=== PATIENT | female | born 1975 | race Caucasian/White ===

== ENCOUNTER 2017-07-28 14:31 | Emergency (ER) | payer OTHER, SELFPAY ==
[2017-07-28 14:32] VITALS: BP 193/102; PULSE 110; RESP 14; TEMP 36.1; O2SAT 95; BMI 42.3
--- NOTE | 2017-07-28 14:44 | ED.DCSUM_ITS ---
- ER Visit Summary Date of Service: 07/28/17 Chief Complaint: Tooth pain History of Present Illness: The patient is a 41 F who has had 1 week of tooth pain. She has pain on the top and bottom part of her jaw. She saw her dentist on Tuesday in her PCP on Tuesday. She is already on amoxicillin. She was given 6 Vicodin but only took one because she states it did not work. She is scheduled to get these pulled in 2 weeks. She states that her temperature is 102?F at home. Pain is worse with eating. Physical Examination: Vital signs are reviewed. Mouth exam reveals widespread dental decay. She has tenderness to tooth numbers 9 and 18. No cervical lymphadenopathy. No Jesus's angina. Test Results: None indicated Emergency Department Course and Treatment: Patient will be treated with intramuscular Toradol here. She will go home with naproxen. She will follow- up with her dentist Treatment Plan: [] Disposition: Discharge Impression: Odontalgia This note was generated with [employer] dictation software. It may contain incorrect words, spelling, and punctuation that were not noted in review of the chart prior to signing ED Disposition - Plan for ED Patient: Chief Complaint: Dental Referrals: Payam Brown DO [Primary Care Provider] -
--- NOTE | 2017-07-28 14:44 | ED.DEP ---
ED Disposition - Plan for ED Patient: Disposition: Home or Assisted Living Chief Complaint: Dental Instructions: ED Tooth Pain Prescriptions: Naproxen [Naprosyn] 500 mg PO BID PRN #20 tab Referrals: Payam Brown DO [Primary Care Provider] -
[2017-07-28] MEDS: Ketorolac 60 MG/2 ML Vial IM (14:48)
== END 2017-07-28 15:19 | disposition home or self-care (01) ==
LOC: ED 14:51
PROVIDERS: Emergency Provider Emergency Medicine; Family Provider Student in an Organized Health Care Education/Training Program; PCP Student in an Organized Health Care Education/Training Program
DX: K02.9 Dental caries, unspecified (principal); E11.9 Type 2 diabetes mellitus without complications; I10 Essential (primary) hypertension; F32.9 Major depressive disorder, single episode, unspecified; F41.9 Anxiety disorder, unspecified; Z79.82 Long term (current) use of aspirin; Z79.4 Long term (current) use of insulin; Z79.899 Other long term (current) drug therapy
CPT/HCPCS: 96372; 99282

== ENCOUNTER 2017-07-29 08:42 | Emergency (ER) | payer OTHER, SELFPAY ==
[2017-07-29 08:43] VITALS: BP 163/96; PULSE 119; RESP 16; TEMP 37; O2SAT 94; BMI 42.8
--- NOTE | 2017-07-29 09:00 | ED.VISSUMM ---
- ER Visit Summary Date of Service: 07/29/17 Chief Complaint: Dental abscess History of Present Illness: The patient is a 41 F who states that she saw [facility] on Tuesday. She was told she needed to have 2 teeth removed 1 on the upper right central incisor and the other on the bottom right. She states she was placed on amoxicillin. She went to her primary care doctor on Tuesday. She was given some Vicodin which did not help her pain. She was seen in the emergency department on with reported fever but was afebrile in department. She states now she has developed a swelling on the roof just behind the right upper central incisor. Her pain is worse today. She states that she called her primary care doctor's office and they told her that she needed to come back to the emergency department. She also states that she needs a med release to have her teeth pulled. Physical Examination: Afebrile slightly tachycardic. Gen: Well-nourished well-developed Head: Normocephalic atraumatic Eyes: Perrl EOMI ENT: TMs clear no rhinorrhea moist mucous membranes there is widespread dental decay. There is a small developing abscess posterior to the right central upper incisor. There is focal decay of that tooth. There is evidence of gingivitis. There is no trismus. The floor the mouth is soft. I do not appreciate any facial swelling or cellulitic changes Neck: Supple no lymphadenopathy no JVD nontender CVS: Heart rate was 96 on my examination regular rate rhythm no murmurs normal S1-S2 Respiratory: No distress clear to auscultation bilaterally chest nontender Abdomen: Soft nontender nondistended normal bowel sounds no masses Back: Nontender Extremity: Nontender no edema Skin: Normal color no rash Neuro: alert orientated ?3 CN II-XII intact normal strength sensation reflexes gait cerebellar Psych: Normal affect normal mood Emergency Department Course and Treatment: Ice and. When I have her use Peridex and I will write for a few oxycodone given the developing abscess. At this time I do not feel the abscess is drainable. She needs to follow-up with her family doctor and dentist. Impression: 1. Dental abscess 2. Gingivitis This note was generated with [employer] dictation software. It may contain incorrect words, spelling, and punctuation that were not noted in review of the chart prior to signing ED Disposition - Plan for ED Patient: Disposition: Home or Assisted Living Chief Complaint: Dental Instructions: ED Abscess Dental, Stages of Periodontal Disease Prescriptions: Oxycodone [Oxyir] 5 mg PO Q6H PRN PRN 3 Days #12 tab PRN Reason: Pain Chlorhexidine Gluconate [Peridex] 15 ml MM BID 7 Days #210 ml Clindamycin HCl [Cleocin] 300 mg PO Q6H #40 cap Referrals: Payam Brown DO [Primary Care Provider] - ( SCHEDULED)
== END 2017-07-29 09:08 | disposition home or self-care (01) ==
PROVIDERS: Emergency Provider Emergency Medicine; Family Provider Student in an Organized Health Care Education/Training Program; PCP Student in an Organized Health Care Education/Training Program
DX: K04.7 Periapical abscess without sinus (principal); K05.10 Chronic gingivitis, plaque induced; K02.9 Dental caries, unspecified; E11.9 Type 2 diabetes mellitus without complications; I10 Essential (primary) hypertension; Z79.82 Long term (current) use of aspirin; Z79.4 Long term (current) use of insulin; Z79.899 Other long term (current) drug therapy
CPT/HCPCS: 99282

== ENCOUNTER 2017-07-30 09:18 | Inpatient (IN) | payer OTHER, SELFPAY ==
[2017-07-30] VITALS (14 sets, daily range): BP systolic 136–179; BP diastolic 74–110; PULSE 110–140; RESP 16–32; TEMP 36.3–37; O2SAT 94–96; BMI 42.3; BMI 43.9
--- NOTE | 2017-07-30 09:33 | ED.DCSUM_ITS ---
- ER Visit Summary Date of Service: 07/30/17 Chief Complaint: Facial swelling History of Present Illness: The patient is a 41 F seen by her dentist on Tuesday started on amoxicillin. She saw her primary care physician on Tuesday. Patient was seen in the emergency department on . She was changed to clindamycin in the emergency department on Tuesday. She returns today now with facial swelling and redness. That has developed overnight. She has had a total of 4 doses of her clindamycin yesterday. She denies any fevers. She notes a bad taste in her mouth and bleeding gums. She also notes new swelling over her left frontal upper teeth. Physical Examination: Afebrile vital signs show hypertension and slight tachycardia Gen: Well-nourished well-developed Head: Normocephalic atraumatic Eyes: Perrl EOMI ENT: TMs clear no rhinorrhea moist mucous membranes there is evidence of gingivitis. There is left-sided facial swelling and faint erythema up to the inferior orbital region. There is a draining abscess on the left upper gumline in the front near the central and lateral incisors. Neck: Supple no lymphadenopathy no JVD nontender CVS: Tachycardic regular rate rhythm no murmurs normal S1-S2 Respiratory: No distress clear to auscultation bilaterally chest nontender Abdomen: Soft nontender nondistended normal bowel sounds no masses Back: Nontender Extremity: Nontender no edema Skin: Normal color no rash Neuro: alert orientated ?3 CN II-XII intact normal strength sensation reflexes gait cerebellar Psych: Normal affect normal mood Test Results: White count slightly elevated at 11. Her lactic acid is elevated at 2.5. Glucose of 319. Emergency Department Course and Treatment: IV was established and the patient received pain medication. Blood cultures were obtained prior to the administration of antibiotics. She also received IV clindamycin and IV fluids. Based upon her labs and her physical exam findings she could qualify for severe sepsis. Our plan will be admission to the hospital for failure of outpatient treatment and severe sepsis. At this point as the abscess is spontaneously draining and we will monitor. Impression: 1. Dental abscess 2. Failure of outpatient therapy This note was generated with [employer] dictation software. It may contain incorrect words, spelling, and punctuation that were not noted in review of the chart prior to signing ED Disposition - Plan for ED Patient: Chief Complaint: Edema Referrals: Payam Brown DO [Primary Care Provider] -
[2017-07-30] MEDS: Morphine 2 MG/ML Syringe IV (09:42)
[2017-07-30] MEDS: Clindamycin 600 MG/50 ML BAG 100 MG IV (09:43)
[2017-07-30 10:15] LABS: Anion Gap 7 (5-15); BUN 11 mg/dL (7-18); BUN/Creat Ratio 16.7 RATIO (10-20); Chloride 97 mmol/L (98-107); Creatinine, Serum 0.66 mg/dL (0.55-1.02); EST Glomerular Filtration Rate 106 mL/min (>60); Est Glom Filt Rate - Afr Amer 128 mL/min (>60); Estimated Creatinine Clearance 86.36 ml/min; Glucose 319 mg/dL (74-106); Potassium 3.8 mmol/L (3.5-5.1); Sodium Level 135 mmol/L (136-145)
[2017-07-30 10:18] LABS: Absolute Lymphocyte Count 2.11 X10^3/ul (0.83-4.51); Absolute Neutrophil Count 8.3 X10^3/uL (2.0-7.7); Basophil# 0.02 X10^3/uL; Basophil% 0.2 % (0-1); Eosinophil# 0.15 X10^3/uL; Eosinophils% 1.3 % (0-5); Hematocrit 43.6 % (37-47); Hemoglobin 14.2 g/dl (12.0-15.0); Lymphocyte # 2.11 X10^3/ul (4.0); Lymphocyte % 18.4 % (19-41); Mean Corp Hgb Conc 32.6 g/gl (32-36); Mean Corpuscular Hgb 28.6 pg (27.0-32.0); Mean Corpuscular Volume 87.9 fL (81-99); Mean Platelet Vol. 10.7 fl (6.2-12.0); Monocyte# 0.86 X10^3/uL; Monocyte% 7.5 % (0-10); Neutrophil % 72.2 % (47-70); POSITIVE COUNT NO; POSITIVE DIFFERENTIAL NO; POSITIVE MORPHOLOGY NO; Platelet Count 239 K/mm3 (150-450); RBC Distribution Width SD 41.3 fl (35.1-43.9); Red Blood Count 4.96 M/mm3 (4.2-5.4); White Blood Count 11.5 K/mm3 (4.4-11.0)
[2017-07-30 10:33] LABS: Lactic Acid 2.5 mmol/L (0.4-2.0)
--- NOTE | 2017-07-30 10:42 | EKG12_ITS ---
Test Reason : EDEMA Blood Pressure : / mmHG Vent. Rate : 110 BPM Atrial Rate : 110 BPM P-R Int : 146 ms QRS Dur : 092 ms QT Int : 342 ms P-R-T Axes : 064 004 053 degrees QTc Int : 462 ms Sinus tachycardia Nonspecific ST and T wave abnormality Abnormal ECG Confirmed by NIRALI ORLANDO, GELACIO ([id number]), editorial director KAREN BACA ([id number] on 08/03/2017 1:56:49 PM Referred By: MIRLANDE Confirmed By:GELACIO CAMPOVERDE MD
[2017-07-30] MEDS: 0.9% Normal Saline 1,000 ML 999 ML IV (10:57)
[2017-07-30] MEDS: 0.9% Normal Saline 1,000 ML 150 ML IV ×2 (10:58→22:55)
[2017-07-30 11:03] LABS: AST(SGOT) 27 U/L (15-37); Alanine Aminotransfer ALT/SGPT 31 U/L (13-56); Albumin, Serum 3.3 g/dL (3.2-5.0); Alkaline Phosphatase 137 U/L (45-117); Globulin 4.7 g/dL (2.2-4.2)
[2017-07-30 11:08] LABS: Prothrombin Time (Protime)PT. 13.5 SECONDS (11.7-14.9)
[2017-07-30] MEDS: Morphine 4 MG/ML Syringe IV (11:16)
[2017-07-30 11:55] LABS: Bacteria 0 SEEN /hpf (None Seen); Mucous, Urine 0 SEEN /hpf (<or=2+); White Blood Cells 0 SEEN /hpf (0-5)
[2017-07-30 12:02] LABS: Internal QC Validated? YES +Cl - CLEAR BKGD; Pregnancy, Urine Negative Negative
[2017-07-30 12:05] LABS: Color, Urine Yellow (Yellow); Glucose, Dipstick 1000 mg/dl (Normal); Ketone-Dipstick 15 mg/dl (Negative); Leukocyte Esterase-Dipstick Negative /ul (Negative); Nitrite-Dipstick Negative (Negative); Occult Blood-Urine 10 /ul (Negative); Protein-Dipstick 100 mg/dl (Negative); Urine Bilirubin Dipstick Negative (Negative); Urine Clarity Sl. Cloudy (Clear); Urine Urobilinogen Normal (Normal); Urine pH 6.5 (5.0 - 8.0)
[2017-07-30 12:08] LABS: Red Blood Cells-Urine 0-5 SEEN /hpf (0-5); Squamous Epithelial Cells - UA 0-5 SEEN /hpf (5-10)
[2017-07-30 12:41] LABS: Bedside Glucose 244 mg/dL (70-110)
[2017-07-30 13:56] LABS: Reflex Lactate? Y
[2017-07-30] MEDS: Ketorolac 30 MG/ML Syringe IV (14:08)
--- NOTE | 2017-07-30 14:33 | PCM.HP.STD ---
Problem List (1) Severe sepsis Status: Acute (2) Periapical abscess Status: Acute (3) HTN (hypertension) Status: Chronic (4) Hyperlipidemia Status: Chronic (5) Type 2 diabetes mellitus Status: Chronic History of Present Illness Date of Admission: 07/30/17 Chief Complaint: Facial swelling. The patient is a 41 year old F who since Tuesday has had a pain in her tooth #8. Patient seen a dentist and was started on antibiotics with the clindamycin. Today noticed a very profound facial swelling and noted some lacrimation as well. Patient presented to the emergency room. Patient was evaluated and was noted to be tachycardic so a lactic acid was ordered and came back at 2.5. Patient was concern for severe sepsis and admission request at that time. Patient did receive Toradol, clindamycin and IV fluids. Patient does have a known history of a bad tooth and has had other teeth come out and does have a current bad tooth #15. Patient is to follow-up with dentistry next week in regards to either getting instructed or for follow-up purposes unclear at this time. [] Past Medical History Past Medical History (Chronic Problems): Chronic Problems HTN (hypertension) (Chronic) Hyperlipidemia (Chronic) Type 2 diabetes mellitus (Chronic) Allergies pregabalin [From Lyrica] Allergy (Verified 07/30/17 09:19) Other SI sulfamethoxazole [From Bactrim] Allergy (Verified 07/30/17 09:19) Rash tramadol HCl [From Ultram] Allergy (Verified 07/30/17 09:19) Swelling trimethoprim [From Bactrim] Allergy (Verified 07/30/17 09:19) Rash vancomycin Allergy (Verified 07/30/17 09:19) Swelling Home Medications: Ambulatory Orders Medication Instructions Recorded Metoprolol(XL)Succ [Toprol Xl 25 mg PO DAILY 08/06/15 (Beta Zelalem)] Amitriptyline HCl 50 mg PO QHS 07/28/17 Aspirin E.C. [Ecotrin] 81 mg PO DAILY@0800 07/28/17 Cholecalciferol (Vitamin D3) 2,000 unit PO DAILY 07/28/17 [Vitamin D3] Dicyclomine HCl [Bentyl] 20 mg PO TIDAC 07/28/17 Duloxetine Hcl [Cymbalta] 60 mg PO BID 07/28/17 Fluticasone 0.05% [Flonase Nasal 2 spray NASAL DAILY 07/28/17 [place]] Gabapentin [Neurontin] 600 mg PO BID 07/28/17 Insulin NPH Human [Humulin N (Bkc)] 12 units SC BREAKFAST 07/28/17 Melatonin 10 mg PO QHS 07/28/17 Naproxen [Naprosyn] 500 mg PO BID PRN #20 tab 07/28/17 Simvastatin [Zocor] 20 mg PO QHS 07/28/17 buPROPion SR [Wellbutrin SR (150mg 150 mg PO BID 07/28/17 tablets)] Chlorhexidine Gluconate [Peridex] 15 ml MM BID 7 Days #210 ml 07/29/17 Clindamycin HCl [Cleocin] 300 mg PO Q6H #40 cap 07/29/17 Oxycodone [Oxyir] 5 mg PO Q6H PRN PRN 3 Days #12 tab 07/29/17 Insulin NPH Human Isophane 6 unit SQ DINNER 07/30/17 [Humulin N] Surgical History: noncontributory Psychiatric History: No pertinent psych hx [employer] History: No pertinent [employer] history Lives: Spouse/ Significant Other Smoking Status: Never smoker - *Family History Maternal History Items: Heart Disease - In maternal grandmother Review of Systems Constitutional: Reports: Chills, Fever Eyes: Reports: Blurred vision - Left eye but also associated with lacrimation. HEENT: Reports: - - Left facial swelling and pain, - Cardiovascular: Denies: Chest Pain, Chest Pressure Respiratory: Denies: Shortness of Breath Gastrointestinal: Denies: Abdominal Pain, Nausea, Vomiting Genitourinary: Denies: Frequency, Incontinence Musculoskeletal: Denies: Joint Pain, Joint Tenderness Skin: Denies: Dryness, Rash Neurological: Denies: Numbness, Tingling, Focal weakness Psychiatric: Denies: Anxiety, Depression, Homicidal Ideations, Suicidal Ideations Hematologic/ Lymphatic: Denies: Easy Bruising, Easy Bleeding, Hx of blood clot VTE Information - Inpt Only VTE Present on Admission: No VTE Pharm Prophylaxis ordered?: Yes Patient Problems: Active and Suspected Problems Severe sepsis (Acute) Periapical abscess (Acute) - Physical Exam General: Alert, - - Comfortable. Afebrile. Nontoxic appearing. No drooling nor any tripoding. HEENT: - - Facial swelling on the left without cellulitis. Tender palpation over the left aspect of her jaw. Oral: Moist Mucosa, - - poor dentition with black discoloration of tooth #8 as well as 15. Neck: No Nodes, Thyroid Normal Size and Texture Lungs: Clear to auscultation, Normal air movement, No rhonchi, No wheeze Cardiovascular: Regular rate, Regular Rhythm, Normal S1, Normal S2 Abdomen: Bowel Sounds Present, Soft, Non Tender, Non-Distended Extremities: No edema, No Calf Tenderness Skin: No rashes, No breakdown Psych/Mental Status: Normal Affect, Appropriate Vital Signs Temp Pulse Resp BP Pulse Ox 36.7 C 110 H 32 H 151/92 H 96 07/30/17 14:21 07/30/17 14:21 07/30/17 14:21 07/30/17 14:21 07/30/17 14:17 Oxygen Delivery Method Room Air Weight: 101.605 kg Body Mass Index (BMI) 42.3 Finger Stick Blood Glucose 244 Laboratory Tests Past 24 Hrs 07/30/17 07/30/17 07/30/17 09:45 09:45 09:45 WBC 11.5 H RBC 4.96 Hgb 14.2 Hct 43.6 MCV 87.9 MCH 28.6 MCHC 32.6 RDW 13.0 RDW Differential 41.3 Plt Count 239 MPV 10.7 Immature Gran % (Auto) 0.400 Neut % (Auto) 72.2 H Lymph % (Auto) 18.4 L [place] % (Auto) 7.5 Eos % (Auto) 1.3 Baso % (Auto) 0.2 Absolute Neuts (auto) 8.3 H Absolute Lymphs (auto) 2.11 Total Counted Not Reportable PT INR APTT Sodium 135 L Potassium 3.8 Chloride 97 L Carbon Dioxide 31.0 Anion Gap 7 BUN 11 Creatinine 0.66 Estim Creat Clear Calc 86.36 Est GFR (MDRD) Af Amer 128 Est GFR (MDRD) Non-Af 106 BUN/Creatinine Ratio 16.7 Glucose 319 H Lactic Acid 2.5 H Calcium 9.0 Total Bilirubin Direct Bilirubin AST ALT Alkaline Phosphatase Troponin I Total Protein Albumin Globulin Urine Color Urine Clarity Urine pH Ur Specific [place] Urine Protein Urine Glucose (UA) Urine Ketones Urine Occult Blood Urine Nitrite Urine Bilirubin Urine Urobilinogen Ur Leukocyte Esterase Urine RBC Urine WBC Ur Squamous Epith Cells Urine Bacteria Urine Mucus Urine Test Acetone Level 07/30/17 07/30/17 07/30/17 09:45 09:45 09:45 WBC RBC Hgb Hct MCV MCH MCHC RDW RDW Differential Plt Count MPV Immature Gran % (Auto) Neut % (Auto) Lymph % (Auto) [place] % (Auto) Eos % (Auto) Baso % (Auto) Absolute Neuts (auto) Absolute Lymphs (auto) Total Counted PT 13.5 INR 1.0 APTT 31.0 Sodium Potassium Chloride Carbon Dioxide Anion Gap BUN Creatinine Estim Creat Clear Calc Est GFR (MDRD) Af Amer Est GFR (MDRD) Non-Af BUN/Creatinine Ratio Glucose Lactic Acid Calcium Total Bilirubin 0.80 Direct Bilirubin 0.20 AST 27 ALT 31 Alkaline Phosphatase 137 H Troponin I < 0.02 Total Protein 8.0 Albumin 3.3 Globulin 4.7 H Urine Color Urine Clarity Urine pH Ur Specific [place] Urine Protein Urine Glucose (UA) Urine Ketones Urine Occult Blood Urine Nitrite Urine Bilirubin Urine Urobilinogen Ur Leukocyte Esterase Urine RBC Urine WBC Ur Squamous Epith Cells Urine Bacteria Urine Mucus Urine Test Acetone Level 07/30/17 07/30/17 07/30/17 09:45 11:45 11:45 WBC RBC Hgb Hct MCV MCH MCHC RDW RDW Differential Plt Count MPV Immature Gran % (Auto) Neut % (Auto) Lymph % (Auto) [place] % (Auto) Eos % (Auto) Baso % (Auto) Absolute Neuts (auto) Absolute Lymphs (auto) Total Counted PT INR APTT Sodium Potassium Chloride Carbon Dioxide Anion Gap BUN Creatinine Estim Creat Clear Calc Est GFR (MDRD) Af Amer Est GFR (MDRD) Non-Af BUN/Creatinine Ratio Glucose Lactic Acid Calcium Total Bilirubin Direct Bilirubin AST ALT Alkaline Phosphatase Troponin I Total Protein Albumin Globulin Urine Color Yellow Urine Clarity Sl. Cloudy Urine pH 6.5 Ur Specific [place] 1.010 Urine Protein 100 H Urine Glucose (UA) 1000 H Urine Ketones 15 H Urine Occult Blood 10 H Urine Nitrite Negative Urine Bilirubin Negative Urine Urobilinogen Normal Ur Leukocyte Esterase Negative Urine RBC 0-5 SEEN Urine WBC 0 SEEN Ur Squamous Epith Cells 0-5 SEEN Urine Bacteria 0 SEEN Urine Mucus 0 SEEN Urine Test Negative Acetone Level NEGATIVE 07/30/17 14:00 WBC RBC Hgb Hct MCV MCH MCHC RDW RDW Differential Plt Count MPV Immature Gran % (Auto) Neut % (Auto) Lymph % (Auto) [place] % (Auto) Eos % (Auto) Baso % (Auto) Absolute Neuts (auto) Absolute Lymphs (auto) Total Counted PT INR APTT Sodium Potassium Chloride Carbon Dioxide Anion Gap BUN Creatinine Estim Creat Clear Calc Est GFR (MDRD) Af Amer Est GFR (MDRD) Non-Af BUN/Creatinine Ratio Glucose Lactic Acid Pending Calcium Total Bilirubin Direct Bilirubin AST ALT Alkaline Phosphatase Troponin I Total Protein Albumin Globulin Urine Color Urine Clarity Urine pH Ur Specific [place] Urine Protein Urine Glucose (UA) Urine Ketones Urine Occult Blood Urine Nitrite Urine Bilirubin Urine Urobilinogen Ur Leukocyte Esterase Urine RBC Urine WBC Ur Squamous Epith Cells Urine Bacteria Urine Mucus Urine Test Acetone Level POC Glucose 07/30/17 12:37 POC Glucose 244 H Assessment/Plan Active and Suspected Problems Severe sepsis (Acute) Periapical abscess (Acute) 1. Severe sepsis The severe sepsis is due to dental origin with suspected periapical abscesses Patient will be on penicillin G and metronidazole. We will not order vancomycin because of noted allergy. Await blood cultures Check chest x-ray and urine culture Follow-up repeat lactic acid Patient will be admitted to the progressive care unit for closer monitoring for now 2. Suspected periapical abscesses Patient states that this began a tooth #8 but tooth #15 looks very bad as well. Antibiotics as above Check CT of the facial bones Eventually patient will need to have removal of the affected teeth and we need to follow-up with dentistry. 3. Diabetes mellitus type 2 Uncontrolled. Continue with her home regimen of insulin plus sliding scale 4. DVT prophylaxis: Moderate risk. Lovenox. Code Visit Inpatient E&M: 72000 Init Hosp L3
--- NOTE | 2017-07-30 14:41 | HP.PCM_ITS ---
Problem List (1) Severe sepsis Status: Acute (2) Periapical abscess Status: Acute (3) HTN (hypertension) Status: Chronic (4) Hyperlipidemia Status: Chronic (5) Type 2 diabetes mellitus Status: Chronic History of Present Illness Date of Admission: 07/30/17 Chief Complaint: Facial swelling. The patient is a 41 year old F who since Tuesday has had a pain in her tooth #8. Patient seen a dentist and was started on antibiotics with the clindamycin. Today noticed a very profound facial swelling and noted some lacrimation as well. Patient presented to the emergency room. Patient was evaluated and was noted to be tachycardic so a lactic acid was ordered and came back at 2.5. Patient was concern for severe sepsis and admission request at that time. Patient did receive Toradol, clindamycin and IV fluids. Patient does have a known history of a bad tooth and has had other teeth come out and does have a current bad tooth #15. Patient is to follow-up with dentistry next week in regards to either getting instructed or for follow-up purposes unclear at this time. [] Past Medical History Past Medical History (Chronic Problems): Chronic Problems HTN (hypertension) (Chronic) Hyperlipidemia (Chronic) Type 2 diabetes mellitus (Chronic) Allergies pregabalin [From Lyrica] Allergy (Verified 07/30/17 09:19) Other SI sulfamethoxazole [From Bactrim] Allergy (Verified 07/30/17 09:19) Rash tramadol HCl [From Ultram] Allergy (Verified 07/30/17 09:19) Swelling trimethoprim [From Bactrim] Allergy (Verified 07/30/17 09:19) Rash vancomycin Allergy (Verified 07/30/17 09:19) Swelling Home Medications: Ambulatory Orders Medication Instructions Recorded Metoprolol(XL)Succ [Toprol Xl 25 mg PO DAILY 08/06/15 (Beta [place])] Amitriptyline HCl 50 mg PO QHS 07/28/17 Aspirin E.C. [Ecotrin] 81 mg PO DAILY@0800 07/28/17 Cholecalciferol (Vitamin D3) 2,000 unit PO DAILY 07/28/17 [Vitamin D3] Dicyclomine HCl [Bentyl] 20 mg PO TIDAC 07/28/17 Duloxetine Hcl [Cymbalta] 60 mg PO BID 07/28/17 Fluticasone 0.05% [Flonase Nasal 2 spray NASAL DAILY 07/28/17 Maurice] Gabapentin [Neurontin] 600 mg PO BID 07/28/17 Insulin NPH Human [Humulin N (Bkc)] 12 units SC BREAKFAST 07/28/17 Melatonin 10 mg PO QHS 07/28/17 Naproxen [Naprosyn] 500 mg PO BID PRN #20 tab 07/28/17 Simvastatin [Zocor] 20 mg PO QHS 07/28/17 buPROPion SR [Wellbutrin SR (150mg 150 mg PO BID 07/28/17 tablets)] Chlorhexidine Gluconate [Peridex] 15 ml MM BID 7 Days #210 ml 07/29/17 Clindamycin HCl [Cleocin] 300 mg PO Q6H #40 cap 07/29/17 Oxycodone [Oxyir] 5 mg PO Q6H PRN PRN 3 Days #12 tab 07/29/17 Insulin NPH Human Isophane 6 unit SQ DINNER 07/30/17 [Humulin N] Surgical History: noncontributory Psychiatric History: No pertinent psych hx 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 HEENT: Reports: - - Left facial swelling and pain, - Cardiovascular: Denies: Chest Pain, Chest Pressure Respiratory: Denies: Shortness of Breath Gastrointestinal: Denies: Abdominal Pain, Nausea, Vomiting Genitourinary: Denies: Frequency, Incontinence Musculoskeletal: Denies: Joint Pain, Joint Tenderness Skin: Denies: Dryness, Rash Neurological: Denies: Numbness, Tingling, Focal weakness Psychiatric: Denies: Anxiety, Depression, Homicidal Ideations, Suicidal Ideations Hematologic/ Lymphatic: Denies: Easy Bruising, Easy Bleeding, Hx of blood clot VTE Information - Inpt Only VTE Present on Admission: No VTE Pharm Prophylaxis ordered?: Yes Patient Problems: Active and Suspected Problems Severe sepsis (Acute) Periapical abscess (Acute) - Physical Exam General: Alert, - - Comfortable. Afebrile. Nontoxic appearing. No drooling nor any tripoding. HEENT: - - Facial swelling on the left without cellulitis. Tender palpation over the left aspect of her jaw. Oral: Moist Mucosa, - - poor dentition with black discoloration of tooth #8 as well as 15. Neck: No Nodes, Thyroid Normal Size and Texture Lungs: Clear to auscultation, Normal air movement, No rhonchi, No wheeze Cardiovascular: Regular rate, Regular Rhythm, Normal S1, Normal S2 Abdomen: Bowel Sounds Present, Soft, Non Tender, Non-Distended Extremities: No edema, No Calf Tenderness Skin: No rashes, No breakdown Psych/Mental Status: Normal Affect, Appropriate Vital Signs Temp Pulse Resp BP Pulse Ox 36.7 C 110 H 32 H 151/92 H 96 07/30/17 14:21 07/30/17 14:21 07/30/17 14:21 07/30/17 14:21 07/30/17 14:17 Oxygen Delivery Method Room Air Weight: 101.605 kg Body Mass Index (BMI) 42.3 Finger Stick Blood Glucose 244 Laboratory Tests Past 24 Hrs 07/30/17 07/30/17 07/30/17 09:45 09:45 09:45 WBC 11.5 H RBC 4.96 Hgb 14.2 Hct 43.6 MCV 87.9 MCH 28.6 MCHC 32.6 RDW 13.0 RDW Differential 41.3 Plt Count 239 MPV 10.7 Immature Gran % (Auto) 0.400 Neut % (Auto) 72.2 H Lymph % (Auto) 18.4 L [place] % (Auto) 7.5 Eos % (Auto) 1.3 Baso % (Auto) 0.2 Absolute Neuts (auto) 8.3 H Absolute Lymphs (auto) 2.11 Total Counted Not Reportable PT INR APTT Sodium 135 L Potassium 3.8 Chloride 97 L Carbon Dioxide 31.0 Anion Gap 7 BUN 11 Creatinine 0.66 Estim Creat Clear Calc 86.36 Est GFR (MDRD) Af Amer 128 Est GFR (MDRD) Non-Af 106 BUN/Creatinine Ratio 16.7 Glucose 319 H Lactic Acid 2.5 H Calcium 9.0 Total Bilirubin Direct Bilirubin AST ALT Alkaline Phosphatase Troponin I Total Protein Albumin Globulin Urine Color Urine Clarity Urine pH Ur Specific [place] Urine Protein Urine Glucose (UA) Urine Ketones Urine Occult Blood Urine Nitrite Urine Bilirubin Urine Urobilinogen Ur Leukocyte Esterase Urine RBC Urine WBC Ur Squamous Epith Cells Urine Bacteria Urine Mucus Urine Test Acetone Level 07/30/17 07/30/17 07/30/17 09:45 09:45 09:45 WBC RBC Hgb Hct MCV MCH MCHC RDW RDW Differential Plt Count MPV Immature Gran % (Auto) Neut % (Auto) Lymph % (Auto) [place] % (Auto) Eos % (Auto) Baso % (Auto) Absolute Neuts (auto) Absolute Lymphs (auto) Total Counted PT 13.5 INR 1.0 APTT 31.0 Sodium Potassium Chloride Carbon Dioxide Anion Gap BUN Creatinine Estim Creat Clear Calc Est GFR (MDRD) Af Amer Est GFR (MDRD) Non-Af BUN/Creatinine Ratio Glucose Lactic Acid Calcium Total Bilirubin 0.80 Direct Bilirubin 0.20 AST 27 ALT 31 Alkaline Phosphatase 137 H Troponin I < 0.02 Total Protein 8.0 Albumin 3.3 Globulin 4.7 H Urine Color Urine Clarity Urine pH Ur Specific [place] Urine Protein Urine Glucose (UA) Urine Ketones Urine Occult Blood Urine Nitrite Urine Bilirubin Urine Urobilinogen Ur Leukocyte Esterase Urine RBC Urine WBC Ur Squamous Epith Cells Urine Bacteria Urine Mucus Urine Test Acetone Level 07/30/17 07/30/17 07/30/17 09:45 11:45 11:45 WBC RBC Hgb Hct MCV MCH MCHC RDW RDW Differential Plt Count MPV Immature Gran % (Auto) Neut % (Auto) Lymph % (Auto) [place] % (Auto) Eos % (Auto) Baso % (Auto) Absolute Neuts (auto) Absolute Lymphs (auto) Total Counted PT INR APTT Sodium Potassium Chloride Carbon Dioxide Anion Gap BUN Creatinine Estim Creat Clear Calc Est GFR (MDRD) Af Amer Est GFR (MDRD) Non-Af BUN/Creatinine Ratio Glucose Lactic Acid Calcium Total Bilirubin Direct Bilirubin AST ALT Alkaline Phosphatase Troponin I Total Protein Albumin Globulin Urine Color Yellow Urine Clarity Sl. Cloudy Urine pH 6.5 Ur Specific [place] 1.010 Urine Protein 100 H Urine Glucose (UA) 1000 H Urine Ketones 15 H Urine Occult Blood 10 H Urine Nitrite Negative Urine Bilirubin Negative Urine Urobilinogen Normal Ur Leukocyte Esterase Negative Urine RBC 0-5 SEEN Urine WBC 0 SEEN Ur Squamous Epith Cells 0-5 SEEN Urine Bacteria 0 SEEN Urine Mucus 0 SEEN Urine Test Negative Acetone Level NEGATIVE 07/30/17 14:00 WBC RBC Hgb Hct MCV MCH MCHC RDW RDW Differential Plt Count MPV Immature Gran % (Auto) Neut % (Auto) Lymph % (Auto) [place] % (Auto) Eos % (Auto) Baso % (Auto) Absolute Neuts (auto) Absolute Lymphs (auto) Total Counted PT INR APTT Sodium Potassium Chloride Carbon Dioxide Anion Gap BUN Creatinine Estim Creat Clear Calc Est GFR (MDRD) Af Amer Est GFR (MDRD) Non-Af BUN/Creatinine Ratio Glucose Lactic Acid Pending Calcium Total Bilirubin Direct Bilirubin AST ALT Alkaline Phosphatase Troponin I Total Protein Albumin Globulin Urine Color Urine Clarity Urine pH Ur Specific [place] Urine Protein Urine Glucose (UA) Urine Ketones Urine Occult Blood Urine Nitrite Urine Bilirubin Urine Urobilinogen Ur Leukocyte Esterase Urine RBC Urine WBC Ur Squamous Epith Cells Urine Bacteria Urine Mucus Urine Test Acetone Level POC Glucose 07/30/17 12:37 POC Glucose 244 H Assessment/Plan Active and Suspected Problems Severe sepsis (Acute) Periapical abscess (Acute) 1. Severe sepsis * The severe sepsis is due to dental origin with suspected periapical abscesses * Patient will be on penicillin G and metronidazole. We will not order vancomycin because of noted allergy. * Await blood cultures * Check chest x-ray and urine culture * Follow-up repeat lactic acid * Patient will be admitted to the progressive care unit for closer monitoring for now 2. Suspected periapical abscesses * Patient states that this began a tooth #8 but tooth #15 looks very bad as well. * Antibiotics as above * Check CT of the facial bones * Eventually patient will need to have removal of the affected teeth and we need to follow-up with dentistry. 3. Diabetes mellitus type 2 * Uncontrolled. Continue with her home regimen of insulin plus sliding scale 4. DVT prophylaxis: Moderate risk. Lovenox. Code Visit Inpatient E&M: 80794 Init Hosp L3
[2017-07-30 14:46] LABS: Lactic Acid 1.8 mmol/L (0.4-2.0)
--- NOTE | 2017-07-30 14:53 | CT_ITS ---
STUDY: CT MAXILLOFACIAL SINUSES REASON FOR EXAM: Female, 41 years old. Swelling around upper front teeth. Possible periapical abscess RADIATION DOSAGE (If Supplied By Facility): CTDIvol = ( 29.38 ) mGy, DLP = ( 576.84 ) mGycm TECHNIQUE: The patient was scanned in a multi detector CT scanner. High resolution axial imaging was performed without the administration of intravenous contrast material. Sagittal and coronal images were reconstructed. Individualized dose optimization techniques were used for this CT. COMPARISON: None. FINDINGS: FRONTAL SINUSES: Normal aeration, without mucosal inflammatory disease. ETHMOIDAL SINUSES: Normal aeration, without mucosal inflammatory disease. MAXILLARY SINUSES: Mild circumferential sinus mucosal thickening of the bilateral maxillary sinuses. SPHENOIDAL SINUSES: Normal aeration, without mucosal inflammatory disease. Just anterior to the palate at midline, there is an area of punctate focal subcutaneous emphysema with probable small fluid collection and abscess measuring 7.7 x 7.3 cm. No definite osseous erosion is noted. Poor dentition with multiple dental caries. CT/Sinus/Facial Bone IMPRESSION: Small area of subcutaneous emphysema and fluid just anterior to the palate at midline. Small abscess measuring 7.7 x 7.3 cm. Remainder as above Electronically Signed: Tomás Zaldivar DO at 18:02 EDT Tel , Service support ,
--- NOTE | 2017-07-30 14:55 | RAD_ITS ---
STUDY: X-RAY CHEST REASON FOR EXAM: Female, 41 years old. Severe sepsis TECHNIQUE: Single AP portable view of the chest. COMPARISON: 05/09/2016 FINDINGS: The lungs are clear and expanded. There is no demonstrated pleural abnormality. There is mild cardiac enlargement. Normal mediastinum and paulette. Normal visualized pulmonary arteries. Normal visualized aortic arch and descending thoracic aorta. There is a dextroscoliosis of the thoracic spine. Normal visualized ribs, clavicles, and shoulders. There is no demonstrated abnormality of the visualized soft tissue structures of the upper abdomen. RAD/Chest 1 View (Portable) IMPRESSION: No acute cardiopulmonary disease Electronically Signed: Tomás Zaldivar DO at 15:49 EDT Tel , Service support ,
[2017-07-30 15:36] LABS: Bedside Glucose 255 mg/dL (70-110)
[2017-07-30] MEDS: Insulin NPH Human 100 UNITS/ML PEN 6 UNITS SC (16:46)
[2017-07-30] MEDS: Dicyclomine 10 MG Capsule 20 MG PO (16:46)
[2017-07-30] MEDS: oxyCODONE 5 MG Tablet PO ×2 (16:46→22:59)
[2017-07-30] MEDS: Naproxen 500 MG Tablet PO (20:59)
[2017-07-30] MEDS: DULoxetine Hcl 60 MG Capsule PO (21:00)
[2017-07-30] MEDS: Amitriptyline 100 MG Tablet 50 MG PO (21:00)
[2017-07-30] MEDS: Atorvastatin Calcium 10 MG Tablet PO (21:01)
[2017-07-30] MEDS: MELATONIN 10 MG TABLET PO (21:02)
[2017-07-30] MEDS: Gabapentin 600 MG Tablet PO (21:02)
[2017-07-30] MEDS: Chlorhexidine 480 ML 15 ML PO (21:03)
[2017-07-30] MEDS: buPROPion (SR) 150 MG Tablet.SA PO (21:04)
[2017-07-30] MEDS: Metoprolol(XL)Succ 25 MG Tablet PO (21:20)
--- NOTE | 2017-07-30 21:27 | PCM.CONS.GEN ---
Problem List (1) Cellulitis and abscess of face Status: Acute (2) Periapical abscess with facial involvement Status: Acute Reason for Consult Date of Consultation: 07/30/17 Reason for Consultation: Facial abscess, sepsis History of Present Illness: The patient is a 41 year old F who was admitted to the [place] emergency department for sepsis in the setting of diabetes. She reports that over the last 5 days she has had progressive pain, swelling, and redness extending above the left upper lip cheek and periorbital area. She reports that she saw her dentist who started her on antibiotic therapy but continued to worsen and subsequently called her primary care physician who changed her antibiotic to clindamycin from amoxicillin. She reports that her dentist was unable to extract the tooth until the and as she has now presented to the emergency department on 3 occasions with worsening was admitted for intravenous antibiotic therapy. She reports prior history of extensive MRSA infection with abscess requiring surgical intervention. She does report history of dental caries but has not had prior dental abscess. She reports the antibiotic have not given her much relief. She reports the pain is severe in the left upper teeth and cheek area. She denies any visual change loss blurring of vision or photophobia. She denies any dysphagia odynophagia shortness of breath wheezing or stridor. She reports that previously she had been her usual state of health. She denies any trauma at the site. She does report fever and chills at home as well as worsening pain and discomfort. [] Past Medical History Past Medical History (Chronic Problems): Chronic Problems HTN (hypertension) (Chronic) Hyperlipidemia (Chronic) Type 2 diabetes mellitus (Chronic) Allergies pregabalin [From Lyrica] Allergy (Verified 07/30/17 09:19) Other SI sulfamethoxazole [From Bactrim] Allergy (Verified 07/30/17 09:19) Rash tramadol HCl [From Ultram] Allergy (Verified 07/30/17 09:19) Swelling trimethoprim [From Bactrim] Allergy (Verified 07/30/17 09:19) Rash vancomycin Allergy (Verified 07/30/17 09:19) Swelling Home Medications: Ambulatory Orders Medication Instructions Recorded Metoprolol(XL)Succ [Toprol Xl 25 mg PO DAILY 08/06/15 (Beta [place]al[place])] Amitriptyline HCl 50 mg PO QHS 07/28/17 Aspirin E.C. [Ecotrin] 81 mg PO DAILY@0800 07/28/17 Cholecalciferol (Vitamin D3) 2,000 unit PO DAILY 07/28/17 [Vitamin D3] Dicyclomine HCl [Bentyl] 20 mg PO TIDAC 07/28/17 Duloxetine Hcl [Cymbalta] 60 mg PO BID 07/28/17 Gabapentin [Neurontin] 600 mg PO BID 07/28/17 Insulin NPH Human [Humulin N (Bkc)] 12 units SC BREAKFAST 07/28/17 Melatonin 10 mg PO QHS 07/28/17 Simvastatin [Zocor] 20 mg PO QHS 07/28/17 buPROPion SR [Wellbutrin SR (150mg 150 mg PO BID 07/28/17 tablets)] Chlorhexidine Gluconate [Peridex] 15 ml MM BID 7 Days #210 ml 07/29/17 Clindamycin HCl [Cleocin] 300 mg PO Q6H #40 cap 07/29/17 Insulin NPH Human Isophane 6 unit SQ DINNER 07/30/17 [Humulin N] Surgical History: noncontributory Psychiatric History: No pertinent psych hx 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 Denies: Anorexia Eyes: Reports: Eyelid Inflammation. Denies: Blurred vision, Double vision, Drainage, Pain, Vision Change HEENT: Denies: Difficulty Hearing, Difficulty Swallowing, Dysphasia, Ear Pain, Head Aches, Hearing Changes, Nasal bleeding, Sinus Congestion, Sinus Drainage, Sore Throat Cardiovascular: Denies: Chest Pain, Claudication, Chest Pressure, Chest Tightness, Edema Respiratory: Denies: Cough, Hemoptysis, Shortness of Breath, Wheezing Gastrointestinal: Denies: Abdominal Pain, Constipation, Diarrhea Genitourinary: Denies: Dysuria Musculoskeletal: Denies: Arm Pain, Back Pain Skin: Denies: Pruritis, Rash Neurological: Denies: Difficulty swallowing, Focal weakness Psychiatric: Denies: Anxiety, Depression Hematologic/ Lymphatic: Denies: Adenopathy, Anemia, Easy Bruising, Easy Bleeding Patient Problems: Active and Suspected Problems Severe sepsis (Acute) Periapical abscess (Acute) Cellulitis and abscess of face (Acute) Periapical abscess with facial involvement (Acute) Subjective: Patient is interviewed at bedside reports pain and swelling progressively over the last several days centered in the left upper gums extending into the cheek and eye. Objective: The patient is alert and cooperative and reports her history easily at the bedside. There is no hoarseness or voice changes. She does have swelling and mild erythema over the left cheek and periorbital edema. Palpation reveals this to be exquisitely tender. Examination of the upper gums reveal reveals a erythematous bulging draining abscess over the upper gums and a large carry of the incisor tooth. Palpation over this area results in copious discharge of smell foul-smelling purulent material. A culture of this material is taken and sent as specimen. There is no soft tissue edema or involvement of the soft palate, tongue, inner cheek, or other pharyngeal structures. - Physical Exam General: Alert, Oriented x3, Cooperative HEENT: Atraumatic, PERRLA, EOMI, Normocephalic, TM's Clear, EAC Clear Oral: Moist Mucosa, No Gingival or Mucosal Lesions/ Ulcerations, - - abscess of left upper gingiva with purulent discharge Neck: Supple, No Nodes, No Nuchal Rigidity, Trachea Midline, Thyroid Normal Size and Texture Lungs: Normal air movement, No rhonchi, No wheeze Cardiovascular: Regular rate, Regular Rhythm Abdomen: Soft, Non Tender, Obese Extremities: No clubbing, No cyanosis, No edema Skin: No rashes, No breakdown Neurological: Cranial nerves II-XII grossly intact Psych/Mental Status: Normal Affect, Alert and oriented to time, place, person, mood and affect Vital Signs Temp Pulse Resp BP Pulse Ox 98.4 F 121 H 18 143/80 H 95 07/30/17 15:15 07/30/17 19:00 07/30/17 15:15 07/30/17 15:15 07/30/17 19:55 Oxygen Delivery Method Room Air Weight: 105.4 kg Body Mass Index (BMI) 43.9 Intake and Output for Last 24 Hours 07/28/17 07/29/17 07/30/17 23:59 23:59 23:59 Intake Total 830 / 830 Balance 830 / 830 POC Glucose 07/30/17 15:16 POC Glucose 255 H Assessment/Plan Active and Suspected Problems Severe sepsis (Acute) Periapical abscess (Acute) Cellulitis and abscess of face (Acute) Periapical abscess with facial involvement (Acute) Albertina is a 41-year-old diabetic with a history of MRSA cutaneous infection requiring surgical drainage. She now presents with progressive history of likely dental origin facial abscess. This appears to be spontaneously draining and a culture is obtained to direct further antibiotic coverage. We have discussed at the bedside that dental extraction or treatment of the underlying dental cause will most likely be necessary and that this would be outside the scope of my practice but that I will continue to follow her for assessment extension of her infection beyond the dental site. I would consider consultation and evaluation with oral surgery if available. As the abscess site is draining this does not appear to require incision for drainage and I have discussed with her ongoing massage and milking of the purulent material for drainage in the hopes of decompression of the abscessed area. I am hopeful with appropriate antibiotic coverage that she will show improvement but given her history of progressive abscesses close ongoing surveillance and monitoring would be advised. Additionally with her diabetes she is at increased risk for invasive and progressive infection and close monitoring and control of her blood sugars through this period of acute infection will be needed to ensure her most favorable outcome. As there does not appear to be soft tissue involvement of the pharynx or tongue, I do not see any reason to prevent her from oral nutrition and would encourage a diet order for her.
[2017-07-30 21:41] LABS: Bacteria 0 SEEN /hpf (None Seen); Mucous, Urine 0 SEEN /hpf (<or=2+); Red Blood Cells-Urine 0 SEEN /hpf (0-5); Squamous Epithelial Cells - UA 0 SEEN /hpf (5-10); White Blood Cells 0 SEEN /hpf (0-5)
[2017-07-30 21:42] LABS: Color, Urine Yellow (Yellow); Glucose, Dipstick 1000 mg/dl (Normal); Ketone-Dipstick 15 mg/dl (Negative); Leukocyte Esterase-Dipstick 25 /ul (Negative); Nitrite-Dipstick Negative (Negative); Occult Blood-Urine 10 /ul (Negative); Protein-Dipstick 15 mg/dl (Negative); Urine Bilirubin Dipstick Negative (Negative); Urine Clarity Clear (Clear); Urine Urobilinogen Normal (Normal)
[2017-07-30] MEDS: Morphine 4 MG/ML Syringe 2 MG IV (22:00)
[2017-07-30 22:36] LABS: Bedside Glucose 229 mg/dL (70-110)
[2017-07-31 03:00] VITALS: PULSE 103
[2017-07-31 03:52] VITALS: BP 137/78; PULSE 108; RESP 18; TEMP 36.3; O2SAT 98
[2017-07-31] MEDS: oxyCODONE 5 MG Tablet PO (05:38)
[2017-07-31 07:00] VITALS: PULSE 94
[2017-07-31 07:01] LABS: Bedside Glucose 218 mg/dL (70-110)
[2017-07-31 07:05] LABS: Hematocrit 38.4 % (37-47); Hemoglobin 12.1 g/dl (12.0-15.0); Mean Corp Hgb Conc 31.5 g/gl (32-36); Mean Corpuscular Hgb 27.9 pg (27.0-32.0); Mean Corpuscular Volume 88.5 fL (81-99); Mean Platelet Vol. 10.2 fl (6.2-12.0); Platelet Count 215 K/mm3 (150-450); RBC Distribution Width SD 41.7 fl (35.1-43.9); Red Blood Count 4.34 M/mm3 (4.2-5.4); White Blood Count 8.4 K/mm3 (4.4-11.0)
[2017-07-31 07:08] LABS: Scan Indicated on CBC? Y/N NO
[2017-07-31] MEDS: Dicyclomine 10 MG Capsule 20 MG PO ×2 (07:17→11:14)
[2017-07-31 07:36] LABS: Anion Gap 8 (5-15); BUN 8 mg/dL (7-18); BUN/Creat Ratio 19.5 RATIO (10-20); Calcium,Total 7.8 mg/dL (8.5-10.1); Chloride 102 mmol/L (98-107); Creatinine, Serum 0.41 mg/dL (0.55-1.02); EST Glomerular Filtration Rate 182 mL/min (>60); Est Glom Filt Rate - Afr Amer 221 mL/min (>60); Estimated Creatinine Clearance 139.01 ml/min; Glucose 214 mg/dL (74-106); Potassium 3.2 mmol/L (3.5-5.1); Sodium Level 138 mmol/L (136-145)
[2017-07-31] MEDS: 0.9% Normal Saline 1,000 ML 150 ML IV (08:02)
[2017-07-31] MEDS: Insulin NPH Human 100 UNITS/ML PEN 12 UNITS SC (08:03)
[2017-07-31 08:15] VITALS: O2SAT 96
[2017-07-31] MEDS: Aspirin E.C. 81 MG Tablet PO (09:50)
[2017-07-31] MEDS: DULoxetine Hcl 60 MG Capsule PO (09:51)
[2017-07-31] MEDS: Gabapentin 600 MG Tablet PO (09:52)
[2017-07-31] MEDS: Chlorhexidine 480 ML 15 ML PO (09:52)
[2017-07-31 09:53] VITALS: PULSE 101
[2017-07-31] MEDS: Metoprolol(XL)Succ 25 MG Tablet PO (09:53)
[2017-07-31] MEDS: buPROPion (SR) 150 MG Tablet.SA PO (09:53)
--- NOTE | 2017-07-31 09:58 | PN_ITS ---
Patient Problems: Active and Suspected Problems Severe sepsis (Acute) Periapical abscess (Acute) Cellulitis and abscess of face (Acute) Periapical abscess with facial involvement (Acute) Subjective: Pt continued to have subjective chills/fever/sweats overnight. Had temp 102 at home, no fever recorded while here. Remains tachy. No palpitations. No dizziness or LH. Severe pain still present in upper soft palatte and tooth. No CP. No SOB. No diarrhea. No N/V. - Physical Exam General: Alert, Oriented x3, Cooperative HEENT: Atraumatic, PERRLA, EOMI, Normocephalic Oral: - - i was unable to express any drainage. Soft palatte tender to palp. Neck: Supple, No JVD, Negative Carotid Bruits Lungs: Clear to auscultation, Normal air movement Cardiovascular: Regular rate, No murmurs Abdomen: Bowel Sounds Present, Soft, Non Tender, Obese Extremities: No edema, Capillary Refill Less than 3 Seconds Skin: No rashes, No breakdown Musculoskeletal: No Tenderness to Palpation of Joints or Extremities Neurological: Cranial nerves II-XII grossly intact Psych/Mental Status: Normal Affect, Appropriate, Alert and oriented to time, place, person, mood and affect Vital Signs Temp Pulse Resp BP Pulse Ox 97.4 F L 94 18 137/78 H 96 07/31/17 03:52 07/31/17 07:00 07/31/17 03:52 07/31/17 03:52 07/31/17 08:15 Oxygen Flow Rate (L/min) 2 Oxygen Delivery Method Nasal Cannula Weight: 105.4 kg Body Mass Index (BMI) 43.9 Intake and Output for Last 24 Hours 07/29/17 07/30/17 07/31/17 23:59 23:59 23:59 Intake Total 1755 / 1755 772 / 772 Balance 1755 / 1755 772 / 772 Laboratory Tests Past 24 Hrs 07/30/17 07/31/17 07/31/17 21:30 06:12 06:12 WBC 8.4 RBC 4.34 Hgb 12.1 Hct 38.4 MCV 88.5 MCH 27.9 MCHC 31.5 L RDW 13.0 RDW Differential 41.7 Plt Count 215 MPV 10.2 Sodium 138 Potassium 3.2 L Chloride 102 Carbon Dioxide 28.0 Anion Gap 8 BUN 8 Creatinine 0.41 L Estim Creat Clear Calc 139.01 Est GFR (MDRD) Af Amer 221 Est GFR (MDRD) Non-Af 182 BUN/Creatinine Ratio 19.5 Glucose 214 H Calcium 7.8 L Urine Color Yellow Urine Clarity Clear Urine pH 7.0 Ur Specific [place] 1.010 Urine Protein 15 H Urine Glucose (UA) 1000 H Urine Ketones 15 H Urine Occult Blood 10 H Urine Nitrite Negative Urine Bilirubin Negative Urine Urobilinogen Normal Ur Leukocyte Esterase 25 H Urine RBC 0 SEEN Urine WBC 0 SEEN Ur Squamous Epith Cells 0 SEEN Urine Bacteria 0 SEEN Urine Mucus 0 SEEN POC Glucose 07/31/17 07/30/17 07/30/17 06:42 21:08 15:16 POC Glucose 218 H 229 H 255 H Medical Necessity - Tobacco Use Smoking Status: Never smoker Tobacco Use: Non-smoker Assessment/Plan Active and Suspected Problems Severe sepsis (Acute) Periapical abscess (Acute) Cellulitis and abscess of face (Acute) Periapical abscess with facial involvement (Acute) 1. Severe sepsis 2/2 Dental abscess with soft tissue abscess - as evidenced by CT with significant abscess, tachycarida, leukocytosis, elevated lactate (now improved). Continue Lois/Flagyl, presumed Strep. Was on clinda at home. No murmur on exam. Does have a hx of multiple skin structure infections with MRSA. Leukocytosis improving. Tachy improving. Still with subjective f/c/sweats. ENT following - no plan for further intervention as it is spontaneously draining. CXR neg. UA neg for infection. Follow final cultures - blood/wound. 2. IDDMwith morbid obesity - titrate insulin therapy. SSI. Poorly controlled. Significant glycosuria. Dietary consult. 3. HTN - improved. Trend and adjust home meds as needed. 4. Hx Unspecified tachycardia - rate is improving. Has had 48 hour holter in past with nonspecific tachy. No prior echo. Currently she is regularly tachy. No events on tele. On beta alex. 5. IBS - no diarrhea currently. Continue bentyl. 6. Anx/Dep - continue home meds. 7. HLD - on statin. 8. Hypokalemia - replete. DVT ppx: lovenox DC planning: home when stable. Dental follow up. Follow blood cultures. This patient was seen by Aubrey Parada PA-C under the supervision of Doctor Linh.
[2017-07-31 10:00] VITALS: BP 134/59; PULSE 98; RESP 16; TEMP 36.7; O2SAT 94
[2017-07-31] MEDS: Morphine 4 MG/ML Syringe 2 MG IV (10:01)
[2017-07-31 10:34] LABS: Magnesium 1.8 mg/dL (1.6-2.6)
--- NOTE | 2017-07-31 10:54 | PCM.DC ---
- Discharge Diagnoses Current Active Problems: Current Active and Chronic Problems Severe sepsis (Acute) Periapical abscess (Acute) HTN (hypertension) (Chronic) Hyperlipidemia (Chronic) Cellulitis and abscess of face (Acute) Periapical abscess with facial involvement (Acute) You will use the following diet at home:: Calorie/Carbohydrate Controlled (specify 1200, 1400, etc) - 1800 yas / day, Cardiac Your food should be the consistency of: Regular Your liquids should be the consistency of: Regular/Thin Discharge Activity: Return to Normal Activity Allergies/Adverse Reactions: Allergies pregabalin [From Lyrica] Allergy (Verified 07/30/17 09:19) Other SI sulfamethoxazole [From Bactrim] Allergy (Verified 07/30/17 09:19) Rash tramadol HCl [From Ultram] Allergy (Verified 07/30/17 09:19) Swelling trimethoprim [From Bactrim] Allergy (Verified 07/30/17 09:19) Rash vancomycin Allergy (Verified 07/30/17 09:19) Swelling Medications to take at Discharge Metoprolol(XL)Succ [Toprol Xl (Beta Zelalem)] 25 mg PO DAILY 08/06/15 Amitriptyline HCl 50 mg PO QHS 07/28/17 Aspirin E.C. [Ecotrin] 81 mg PO DAILY@0800 07/28/17 Cholecalciferol (Vitamin D3) [Vitamin D3] 2,000 unit PO DAILY 07/28/17 Dicyclomine HCl [Bentyl] 20 mg PO TIDAC 07/28/17 Duloxetine Hcl [Cymbalta] 60 mg PO BID 07/28/17 Gabapentin [Neurontin] 600 mg PO BID 07/28/17 Melatonin 10 mg PO QHS 07/28/17 Simvastatin [Zocor] 20 mg PO QHS 07/28/17 buPROPion SR [Wellbutrin SR (150mg tablets)] 150 mg PO BID 07/28/17 Chlorhexidine Gluconate [Peridex] 15 ml MM BID 7 Days #210 ml 07/29/17 Amoxicillin/Potassium Clav [Augmentin 875-125 Tablet] 1 ea PO BID #14 tab 07/31/17 Insulin NPH Human Isophane [Humulin N] 8 unit SQ DINNER #0 07/31/17 Insulin NPH Human [Humulin N Pen] 14 units SC BREAKFAST #0 07/31/17 Oxycodone [Oxyir] 5 mg PO Q6H PRN PRN 2 Days #8 tab 07/31/17 The following prescriptions were given: Amoxicillin/Potassium Clav [Augmentin 875-125 Tablet] 1 ea PO BID #14 tab Oxycodone [Oxyir] 5 mg PO Q6H PRN PRN 2 Days #8 tab PRN Reason: Pain Primary Care Physician: Payam Brown DO [Primary Care Provider] - Please follow up with your Primary Care Physician in: 1-2 weeks Please Follow Up With: Dentist,Your - keep appointment When: 08/08/2017 Proposed Discharge Date: 07/31/17
--- NOTE | 2017-07-31 11:00 | PCM.DC.SUM ---
<Aubrey Parada - Last Filed: 07/31/17 11:00> Discharge Date and Diagnosis - Problem List Patient Problems: Active and Suspected Problems Severe sepsis (Acute) Periapical abscess (Acute) Cellulitis and abscess of face (Acute) Periapical abscess with facial involvement (Acute) Date of Admission: 07/30/17 Date of Discharge: 07/31/17 - Primary Discharge Diagnosis Active and Suspected Problems Severe sepsis 2/2 periapical abscess presumed streptococcal DMt2 with morbid obesity Anx/Dep HLD Hx unspecified tachycardia IBNS Hypokalemia - Secondary Discharge Diagnosis Chronic Problems HTN (hypertension) (Chronic) Hyperlipidemia (Chronic) Type 2 diabetes mellitus (Chronic) Hospital Course and Treatment Imaging Results: RAD/Chest 1 View (Portable) IMPRESSION: No acute cardiopulmonary disease CT/Sinus/Facial Bone IMPRESSION: Small area of subcutaneous emphysema and fluid just anterior to the palate at midline. Small abscess measuring 7.7 x 7.3 cm. Remainder as above Consults: [place] - ENT Operations: None Procedures: None Summary of Care Provided: Physical exam on day of discharge: See daily progress note. Hospital course: The patient is a 41 year old F with a hx of IDDM, morbid obesity, Anx/Dep, unspeficied tachycardia, who presents to the ER with chief complaint of facial swelling. She had been on clindamycin for a dental abscess per her PCP however the swelling became more severe and she felt it under her eye. She also reported a fever of 102 at home. She had dental abscess with spontaneous drainage, and was found to be severely septic with lactic acidosis, leukocytosis, tachycardia, and a CT with periapical abscess. She was placed on Lois, ENT was consulted, and she was admitted to telemetry. She had significant improvement overnight with resolution of her white count and improvement fo her pain and swelling and tachycardia. We sent blood and wound cultures to the lab which are pending at this time. As the abscess was spontaneously draining ENT felt there was no need for further invasive intervention. She laready had a follow up appointment scheduled with dental on 08/08, so she was converted to oral Augmentin, and discharged home in stable condition to complete a seven day course. Follow final cultures/sensitivity. Pt seen by Aubrey Parada PA-C under the supervision of Dr. Denise. [] Discharge Diet: Low fat/ Low Cholesterol, 1800 Calorie Control Diet, 2000 mg Sodium Diet Discharge Activity: Return to Normal Activity Home Medications: Medications to take at Discharge Metoprolol(XL)Succ [Toprol Xl (Beta Zelalem)] 25 mg PO DAILY 08/06/15 Amitriptyline HCl 50 mg PO QHS 07/28/17 Aspirin E.C. [Ecotrin] 81 mg PO DAILY@0800 07/28/17 Cholecalciferol (Vitamin D3) [Vitamin D3] 2,000 unit PO DAILY 07/28/17 Dicyclomine HCl [Bentyl] 20 mg PO TIDAC 07/28/17 Duloxetine Hcl [Cymbalta] 60 mg PO BID 07/28/17 Gabapentin [Neurontin] 600 mg PO BID 07/28/17 Melatonin 10 mg PO QHS 07/28/17 Simvastatin [Zocor] 20 mg PO QHS 07/28/17 buPROPion SR [Wellbutrin SR (150mg tablets)] 150 mg PO BID 07/28/17 Chlorhexidine Gluconate [Peridex] 15 ml MM BID 7 Days #210 ml 07/29/17 Amoxicillin/Potassium Clav [Augmentin 875-125 Tablet] 1 ea PO BID #14 tab 07/31/17 Insulin NPH Human Isophane [Humulin N] 8 unit SQ DINNER #0 07/31/17 Insulin NPH Human [Humulin N Pen] 14 units SC BREAKFAST #0 07/31/17 Oxycodone [Oxyir] 5 mg PO Q6H PRN PRN 2 Days #8 tab 07/31/17 Following Prescrptions Were Given to Patient: Amoxicillin/Potassium Clav [Augmentin 875-125 Tablet] 1 ea PO BID #14 tab Oxycodone [Oxyir] 5 mg PO Q6H PRN PRN 2 Days #8 tab PRN Reason: Pain Primary Care Physician: Payam Brown DO [Primary Care Provider] - Please follow up with your Primary Care Physician in: 1-2 weeks Please Follow Up With: Dentist,Your - keep appointment When: 08/08/2017 Disposition: Home Minutes spent on discharge:: 35 Patient Condition:: Stable Medical Necessity - Tobacco Use Smoking Status: Never smoker Tobacco Use: Non-smoker Meaningful Use Info Meaningful Use Diagnoses (Choose all that apply): None applicable <August Denise - Last Filed: 07/31/17 12:18> Discharge Date and Diagnosis - Primary Discharge Diagnosis Active and Suspected Problems Severe sepsis (Acute) Periapical abscess (Acute) Cellulitis and abscess of face (Acute) Periapical abscess with facial involvement (Acute) - Secondary Discharge Diagnosis Chronic Problems HTN (hypertension) (Chronic) Hyperlipidemia (Chronic) Type 2 diabetes mellitus (Chronic) Hospital Course and Treatment Operations: None Procedures: None Summary of Care Provided: Patient seen and examined independently. Agree with the above note by the physician dental assistant instructor. The patient is a 41 year old F [place] with severe sepsis and periapical abscess. Patient had been treated for that for the preceding 5 days but had tremendous facial swelling on the day of arrival. Patient had a CAT scan that showed a soft palate abscess that did show some emphysema. The emphysema could be explained by the fact that the the wound the abscess opened up in that was not actual gas gangrene but just due to the fact that the abscess had opened up. Patient noticed clinical improvement. Patient was put on broad-spectrum antibiotics with penicillin and Flagyl. Patient was seen by ENT because of the abscess and recommended no surgery from his perspective but they did recommend following up with dentistry. Patient clinically is better her abscess is opened up does not require surgery at this time but certainly does need extraction of the at least the affected tooth if not others. Patient will resume her Augmentin that she was on. I feel the patient got worse because the abscess was not lanced but that did open up spontaneously. Patient was on Augmentin previously and then clindamycin. Evaluation of the soft palate shows no erythema no Jesus's angina. Vision is not tripoding nor drooling. She has no respiratory distress nor any stridor. [] Discharge Diet: Low fat/ Low Cholesterol, 1800 Calorie Control Diet, 2000 mg Sodium Diet Discharge Activity: Return to Normal Activity Disposition: Home Meaningful Use Info Meaningful Use Diagnoses (Choose all that apply): None applicable Code Visit Inpatient E&M: 48093 Disch Hosp
--- NOTE | 2017-07-31 11:10 | DS.PCM_ITS ---
<Aubrey Parada - Last Filed: 07/31/17 11:00> Discharge Date and Diagnosis - Problem List Patient Problems: Active and Suspected Problems Severe sepsis (Acute) Periapical abscess (Acute) Cellulitis and abscess of face (Acute) Periapical abscess with facial involvement (Acute) Date of Admission: 07/30/17 Date of Discharge: 07/31/17 - Primary Discharge Diagnosis Active and Suspected Problems Severe sepsis 2/2 periapical abscess presumed streptococcal DMt2 with morbid obesity Anx/Dep HLD Hx unspecified tachycardia IBNS Hypokalemia - Secondary Discharge Diagnosis Chronic Problems HTN (hypertension) (Chronic) Hyperlipidemia (Chronic) Type 2 diabetes mellitus (Chronic) Hospital Course and Treatment Imaging Results: RAD/Chest 1 View (Portable) IMPRESSION: No acute cardiopulmonary disease CT/Sinus/Facial Bone IMPRESSION: Small area of subcutaneous emphysema and fluid just anterior to the palate at midline. Small abscess measuring 7.7 x 7.3 cm. Remainder as above Consults: [place] - ENT Operations: None Procedures: None Summary of Care Provided: Physical exam on day of discharge: See daily progress note. Hospital course: The patient is a 41 year old F with a hx of IDDM, morbid obesity, Anx/Dep, unspeficied tachycardia, who presents to the ER with chief complaint of facial swelling. She had been on clindamycin for a dental abscess per her PCP however the swelling became more severe and she felt it under her eye. She also reported a fever of 102 at home. She had dental abscess with spontaneous drainage, and was found to be severely septic with lactic acidosis, leukocytosis , tachycardia, and a CT with periapical abscess. She was placed on Lois, ENT was consulted, and she was admitted to telemetry. She had significant improvement overnight with resolution of her white count and improvement fo her pain and swelling and tachycardia. We sent blood and wound cultures to the lab which are pending at this time. As the abscess was spontaneously draining ENT felt there was no need for further invasive intervention. She laready had a follow up appointment scheduled with dental on 08/08, so she was converted to oral Augmentin, and discharged home in stable condition to complete a seven day course. Follow final cultures/sensitivity. Pt seen by Aubrey Parada PA-C under the supervision of Dr. Denise. [] Discharge Diet: Low fat/ Low Cholesterol, 1800 Calorie Control Diet, 2000 mg Sodium Diet Discharge Activity: Return to Normal Activity Home Medications: Medications to take at Discharge Metoprolol(XL)Succ [Toprol Xl (Beta Zelalem)] 25 mg PO DAILY 08/06/15 Amitriptyline HCl 50 mg PO QHS 07/28/17 Aspirin E.C. [Ecotrin] 81 mg PO DAILY@0800 07/28/17 Cholecalciferol (Vitamin D3) [Vitamin D3] 2,000 unit PO DAILY 07/28/17 Dicyclomine HCl [Bentyl] 20 mg PO TIDAC 07/28/17 Duloxetine Hcl [Cymbalta] 60 mg PO BID 07/28/17 Gabapentin [Neurontin] 600 mg PO BID 07/28/17 Melatonin 10 mg PO QHS 07/28/17 Simvastatin [Zocor] 20 mg PO QHS 07/28/17 buPROPion SR [Wellbutrin SR (150mg tablets)] 150 mg PO BID 07/28/17 Chlorhexidine Gluconate [Peridex] 15 ml MM BID 7 Days #210 ml 07/29/17 Amoxicillin/Potassium Clav [Augmentin 875-125 Tablet] 1 ea PO BID #14 tab Insulin NPH Human Isophane [Humulin N] 8 unit SQ DINNER #0 07/31/17 Insulin NPH Human [Humulin N Pen] 14 units SC BREAKFAST #0 07/31/17 Oxycodone [Oxyir] 5 mg PO Q6H PRN PRN 2 Days #8 tab 07/31/17 Following Prescrptions Were Given to Patient: Amoxicillin/Potassium Clav [Augmentin 875-125 Tablet] 1 ea PO BID #14 tab Oxycodone [Oxyir] 5 mg PO Q6H PRN PRN 2 Days #8 tab PRN Reason: Pain Primary Care Physician: Payam Brown DO [Primary Care Provider] - Please follow up with your Primary Care Physician in: 1-2 weeks Please Follow Up With: Dentist,Your - keep appointment When: 08/08/2017 Disposition: Home Minutes spent on discharge:: 35 Patient Condition:: Stable Medical Necessity - Tobacco Use Smoking Status: Never smoker Tobacco Use: Non-smoker Meaningful Use Info Meaningful Use Diagnoses (Choose all that apply): None applicable <August Denise - Last Filed: 07/31/17 12:18> Discharge Date and Diagnosis - Primary Discharge Diagnosis Active and Suspected Problems Severe sepsis (Acute) Periapical abscess (Acute) Cellulitis and abscess of face (Acute) Periapical abscess with facial involvement (Acute) - Secondary Discharge Diagnosis Chronic Problems HTN (hypertension) (Chronic) Hyperlipidemia (Chronic) Type 2 diabetes mellitus (Chronic) Hospital Course and Treatment Operations: None Procedures: None Summary of Care Provided: Patient seen and examined independently. Agree with the above note by the physician fire assistant. The patient is a 41 year old F [place] with severe sepsis and periapical abscess. Patient had been treated for that for the preceding 5 days but had tremendous facial swelling on the day of arrival. Patient had a CAT scan that showed a soft palate abscess that did show some emphysema. The emphysema could be explained by the fact that the the wound the abscess opened up in that was not actual gas gangrene but just due to the fact that the abscess had opened up. Patient noticed clinical improvement. Patient was put on broad-spectrum antibiotics with penicillin and Flagyl. Patient was seen by ENT because of the abscess and recommended no surgery from his perspective but they did recommend following up with dentistry. Patient clinically is better her abscess is opened up does not require surgery at this time but certainly does need extraction of the at least the affected tooth if not others. Patient will resume her Augmentin that she was on. I feel the patient got worse because the abscess was not lanced but that did open up spontaneously. Patient was on Augmentin previously and then clindamycin. Evaluation of the soft palate shows no erythema no Jesus's angina. Vision is not tripoding nor drooling. She has no respiratory distress nor any stridor. [ ] Discharge Diet: Low fat/ Low Cholesterol, 1800 Calorie Control Diet, 2000 mg Sodium Diet Discharge Activity: Return to Normal Activity Disposition: Home Meaningful Use Info Meaningful Use Diagnoses (Choose all that apply): None applicable Code Visit Inpatient E&M: 09096 Disch Hosp
[2017-07-31 11:20] LABS: Bedside Glucose 233 mg/dL (70-110)
--- NOTE | 2017-08-02 11:18 | CASEMGMT ---
TASNEEM DUARTE DC phone call. Call to patient. Explained purpose of call. Pt states no concerns, is feeling better, understands presciptions, including antibiotic course should be completed as prescribed. Pt states no concerns re: hospital stay. TASNEEM DUARTE thanked her for choosing [facility]. Reynaldo GUTIÉRREZN TASNEEM [facility]
== END 2017-07-31 12:25 | disposition home or self-care (01) | DRG 872 ==
LOC: ED 10:09 → PCU 14:42
PROVIDERS: Physician Assistant; Emergency Provider Emergency Medicine; Family Provider Student in an Organized Health Care Education/Training Program; PCP Student in an Organized Health Care Education/Training Program
DX: A41.9 Sepsis, unspecified organism (principal); L02.01 Cutaneous abscess of face; L03.211 Cellulitis of face; Z68.41 Body mass index [BMI] 40.0-44.9, adult; E87.2 Acidosis; R65.20 Severe sepsis without septic shock; E87.6 Hypokalemia; K04.7 Periapical abscess without sinus; E11.65 Type 2 diabetes mellitus with hyperglycemia; E11.40 Type 2 diabetes mellitus with diabetic neuropathy, unspecified; I10 Essential (primary) hypertension; E78.5 Hyperlipidemia, unspecified; K58.9 Irritable bowel syndrome, unspecified; E66.01 Morbid (severe) obesity due to excess calories; Z79.82 Long term (current) use of aspirin; Z79.4 Long term (current) use of insulin; Z79.1 Long term (current) use of non-steroidal anti-inflammatories (NSAID); Z79.899 Other long term (current) drug therapy; Z86.14 Personal history of Methicillin resistant Staphylococcus aureus infection
CPT/HCPCS: 70486; 71045; 80048; 80076; 81001; 81025; 82009; 82962; 83605; 83735; 84484; 85025; 85027; 85610; 85730; 87040; 87070; 87086; 87088; 87205; 93005; 94762; 99283; J7030; J7040; J7050

== ENCOUNTER 2018-04-22 16:46 | Emergency (ER) | payer OTHER, SELFPAY ==
[2018-04-22 16:47] VITALS: BP 143/99; PULSE 137; RESP 16; TEMP 36.4; O2SAT 97; BMI 41.5
--- NOTE | 2018-04-22 18:22 | ED.VISSUMM ---
- ER Visit Summary Date of Service: 04/22/18 Chief Complaint: Skin infection History of Present Illness: The patient is a 42 F presenting secondary to a skin infection. Patient reports that over the course last month she has been dealing with a worsening skin infection on her neck. She reports that she saw her primary care physician who started her on antibiotics, but she was unable to tolerate these due to vomiting. She reports that she is been having fevers as high as 102 associated with this and pain. She denies any other constitutional symptoms. Physical Examination: Vital signs were notable for some mild tachycardia with a rate of 104. Neck exam shows over the posterior neck, on both sides of the patient's spinous processes there are abscesses that are spontaneously draining. The left sided one measures approximately 3 cm in the right side and one has a small hole over top of it and measures may be a half of a centimeter. Test Results: None indicated Emergency Department Course and Treatment: Patient presented secondary to a neck abscess. Patient is nontoxic appearing, not concern for deep space infection. Patient was consented for incision and drainage. Lidocaine was used a total of 5 cc between the 2 abscesses, and adequate analgesia was obtained. 11 blade was used to make an incision over the left abscess which was larger, and a copious amount of foul-smelling pus was expressed. This was then irrigated under pressure, there does not appear to be communication with the other abscess on the other side. Incision and drainage was then performed on the contralateral side with minimal drainage. It again was irrigated copiously. Both were left open. Patient will follow up with general surgery for a wound check. Disposition: Discharge Impression: 1. Neck abscesses x2 2. Incision and drainage This note was generated with [employer] dictation software. It may contain incorrect words, spelling, and punctuation that were not noted in review of the chart prior to signing ED Disposition - Plan for ED Patient: Disposition: Home or Assisted Living Chief Complaint: Cellulitis Diagnosis: Abscess Instructions: ED Abscess IandD Referrals: Prabha Roman MD [STAFF PHYSICIAN] - 2 Days for wound check
[2018-04-22 18:33] VITALS: BP 152/91; PULSE 104; RESP 18; TEMP 37.1; O2SAT 97
--- NOTE | 2018-04-22 18:40 | ED.RN ---
Discharge paperwork, follow up and home wound care reviewed with patient. Pt denies questions or needs. Clean, dry, sterile dressing applied to wound.
== END 2018-04-22 18:40 | disposition home or self-care (01) ==
PROVIDERS: Emergency Provider Emergency Medicine; Family Provider Family Medicine; PCP Family Medicine
DX: L02.11 Cutaneous abscess of neck (principal); R00.0 Tachycardia, unspecified; E11.9 Type 2 diabetes mellitus without complications; I10 Essential (primary) hypertension; F32.9 Major depressive disorder, single episode, unspecified; F41.9 Anxiety disorder, unspecified; Z79.82 Long term (current) use of aspirin; Z79.4 Long term (current) use of insulin; Z79.899 Other long term (current) drug therapy
CPT/HCPCS: 10061; 10060; 99282

== ENCOUNTER 2018-04-29 09:10 | Inpatient (IN) | payer OTHER, SELFPAY ==
[2018-04-29] VITALS (7 sets, daily range): BP systolic 99–110; BP diastolic 48–76; PULSE 110–131; RESP 16–19; TEMP 36.6–36.9; O2SAT 92–96; BMI 41.5; BMI 40.6; BMI 40.7
[2018-04-29] MEDS: Ondansetron 4 MG/2 ML Vial IV (10:09)
[2018-04-29] MEDS: Morphine 4 MG/ML Syringe IV ×2 (10:09→11:56)
[2018-04-29 10:24] LABS: Absolute Lymphocyte Count 3.77 X10^3/ul (0.83-4.51); Absolute Neutrophil Count 8.1 X10^3/uL (2.0-7.7); Basophil# 0.02 X10^3/uL; Basophil% 0.2 % (0-1); Eosinophil# 0.14 X10^3/uL; Eosinophils% 1.1 % (0-5); Hematocrit 45.4 % (37-47); Lymphocyte # 3.77 X10^3/ul (4.0); Lymphocyte % 28.8 % (19-41); Mean Corpuscular Hgb 29.1 pg (27.0-32.0); Mean Corpuscular Volume 88.2 fL (81-99); Mean Platelet Vol. 11.1 fl (6.2-12.0); Monocyte# 1.05 X10^3/uL; Neutrophil # 8.08 X10^3/uL (2.7-7.7); Neutrophil % 61.7 % (47-70); POSITIVE COUNT NO; POSITIVE DIFFERENTIAL NO; POSITIVE MORPHOLOGY NO; Platelet Count 282 K/mm3 (150-450); RBC Distribution Width SD 41.5 fl (35.1-43.9); Red Blood Count 5.15 M/mm3 (4.2-5.4); White Blood Count 13.1 K/mm3 (4.4-11.0)
[2018-04-29 10:32] LABS: Anion Gap 12 (5-15); BUN 17 mg/dL (7-18); BUN/Creat Ratio 21.3 RATIO (10-20); Calcium,Total 9.2 mg/dL (8.5-10.1); Chloride 91 mmol/L (98-107); EST Glomerular Filtration Rate 85 mL/min (>60); Est Glom Filt Rate - Afr Amer 102 mL/min (>60); Estimated Creatinine Clearance 70.54 ml/min; Glucose 381 mg/dL (74-106); Potassium 4.1 mmol/L (3.5-5.1); Sodium Level 135 mmol/L (136-145)
[2018-04-29 10:46] LABS: Lactic Acid 2.7 mmol/L (0.4-2.0)
--- NOTE | 2018-04-29 10:46 | ED.RN ---
CALL FROM MARIA ESTHER IN LAB , LACTIC ACID 2.7 , DR. HUSAIN MADE AWARE
--- NOTE | 2018-04-29 10:47 | NURSING ---
DR HUSAIN NOTIFIED OF LACTIC ACID 2.7
--- NOTE | 2018-04-29 11:12 | ED.DCSUM_ITS ---
- ER Visit Summary Date of Service: 04/29/18 Chief Complaint: [] History of Present Illness: The patient is a 42 F [abscess right abdomen presents the emergency department with soft tissue swelling that started 2 days ago. Patient states that she has had fever up to 102 at home. She denies any chills or sweats. Patient states the wound opened up and started to drain today and it has foul-smelling debris from it. Patient recently was seen in the emergency department had some abscesses to the back of her scalp drained and she is not been on antibiotics for that. Patient is a diabetic.] Physical Examination: [HEENT-PERRLA, EOMI. Cranial nerves II through XII grossly intact. TMs clear. Mucous membranes moist. No adenopathy. Cardiovascular-regular rate and rhythm without murmur or ectopy Lungs-clear to auscultation, chest wall stable without crepitus or subcu emphysema Abdomen-normoactive bowel sounds, soft. Right lower quadrant abdomen there is a soft tissue swelling where her pannus in her pelvic region come together. The area is tender to palpation and there is purulent drainage noted from suspected abscess. No significant cellulitis noted. With pressure I am able to extrude large amount of purulent debris. Extremities-intact ?4, normal range of motion, normal pulses, atraumatic] Test Results: [CBC with differential obtained showed a white count 13.1, hemoglobin 15, hematocrit 45, platelets 282. Chemistries unremarkable. Glucose was 381. Lactate was elevated 2.7.] Emergency Department Course and Treatment: [I recommended opening the skin further to allow for continued drainage of the suspected abscess. Patient did not want me to use any anesthetic as she states that she had a horrible experience last time to use the anesthetic and just asked me to make a small incision without anesthetic. Using an 11 blade I made a 2 cm incision into the suspected abscess and continue to obtain free-flowing purulent debris. Patient was started on clindamycin 900 mg IV] Treatment Plan: [Admit for IV antibiotics] Disposition: [Admit] Impression: [Abdominal wall abscess Sepsis syndrome] This note was generated with [employer] dictation software. It may contain incorrect words, spelling, and punctuation that were not noted in review of the chart prior to signing ED Disposition - Plan for ED Patient: Referrals: Leticia Agee MD [Primary Care Provider] -
--- NOTE | 2018-04-29 11:15 | HP.PCM_ITS ---
Problem List (1) Sepsis Status: Acute Qualifiers: Sepsis type: sepsis due to unspecified organism Qualified Code(s): A41.9 - Sepsis, unspecified organism (2) Abscess Status: Acute Comment: Posterior neck and R inguinal abscesses. (3) Morbid obesity due to excess calories Status: Chronic (4) History of MRSA infection Status: Chronic (5) HTN (hypertension) Status: Chronic Qualifiers: Hypertension type: essential hypertension Qualified Code(s): I10 - Essential (primary) hypertension (6) Hyperlipidemia Status: Chronic Qualifiers: Hyperlipidemia type: pure hypercholesterolemia Qualified Code(s): E78.00 - Pure hypercholesterolemia, unspecified; E78.0 - Pure hypercholesterolemia (7) Type 2 diabetes mellitus Status: Chronic Qualifiers: Diabetes mellitus shelter insulin use: with remote computer terminal operator use Diabetes mellitus complication status: with unspecified complications Qualified Code(s): E11.8 - Type 2 diabetes mellitus with unspecified complications; Z79.4 - remote computer terminal operator (current) use of insulin History of Present Illness Date of Admission: 04/29/18 Chief Complaint: Abdominal abscess, draining The patient is a 42 y/o F w/ PMHx: Morbid Obesity, Diabetes mellitus type II w/ Neuropathy, Hx MRSA infectious prior w/ ? roopa to vanc, Anxiety and Depression, HTN, HLD who presents to the [facility] ED on 04/29/18 with history of recently being seen in the ED 1 week prior secondary to discomfort with abscess on her posterior neck with I+D performed at that time, discharged to home, not on abx therapies who now re-presents noting ongoing drainage to the posterior neck I+D site in addition to now onset over the last 48 hours fever, chills, R lower abdomen abscess that is tender to palpation. She notes that the posterior neck I+D region has been continuing to drain, and she notes upon presentation need to also have it assessed again as she cannot herself see the wound. Dressing upon evaluation saturated with purulent material and more expressed with request to patient ED RN to obtain Wound/MRSA Wound from neck also. In the ED work up included T 98.1, heart rate 131, BP 103/74, respiratory rate 16, 94% room air, CBC with W BC 13.1, hemoglobin 15, platelet 282 with left shift, BMP with sodium 135, chloride 91, BUN/Cr 17/0.80, glucose 381, LA 2.7, Wound Cx obtained per ED, will attempt to add also MRSA Wound PCR. In the ED patient administered clindamycin, zofran, morphine. ED I+D performed on the R inguinal region for abscess with decent purulent drainage noted per ED physician. Past Medical History Past Medical History (Chronic Problems): Chronic Problems HTN (hypertension) (Chronic) Hyperlipidemia (Chronic) Morbid obesity due to excess calories (Chronic) History of MRSA infection (Chronic) Type 2 diabetes mellitus (Chronic) Allergies pregabalin [From Lyrica] Allergy (Verified 04/29/18 09:11) Other SI sulfamethoxazole [From Bactrim] Allergy (Verified 04/29/18 09:11) Rash tramadol HCl [From Ultram] Allergy (Verified 04/29/18 09:11) Swelling trimethoprim [From Bactrim] Allergy (Verified 04/29/18 09:11) Rash vancomycin Allergy (Verified 04/29/18 09:11) Swelling Home Medications: Ambulatory Orders Medication Instructions Recorded Metoprolol(XL)Succ [Toprol Xl 25 mg PO DAILY 08/06/15 (Beta Zelalem)] Amitriptyline HCl 50 mg PO QHS 07/28/17 Aspirin E.C. [Ecotrin] 81 mg PO DAILY@0800 07/28/17 Cholecalciferol (Vitamin D3) 2,000 unit PO DAILY 07/28/17 [Vitamin D3] Dicyclomine HCl [Bentyl] 20 mg PO TIDAC 07/28/17 Duloxetine Hcl [Cymbalta] 60 mg PO BID 07/28/17 Gabapentin [Neurontin] 600 mg PO BID 07/28/17 Melatonin 10 mg PO QHS 07/28/17 Simvastatin [Zocor] 20 mg PO QHS 07/28/17 buPROPion SR [Wellbutrin SR (150mg 150 mg PO BID 07/28/17 tablets)] Chlorhexidine Gluconate [Peridex] 15 ml MM BID 7 Days #210 ml 07/29/17 Insulin NPH Human Isophane 8 unit SQ DINNER #0 07/31/17 [Humulin N] Insulin NPH Human [Humulin N Pen] 14 units SC BREAKFAST #0 07/31/17 Surgical History: - - Multiple I&D secondary to abscesses including bilateral axilla hidradenitis interventions with resections, cholecystectomy, total hysterectomy, D&C x2 secondary to miscarriages x2. Psychiatric History: Anxiety, Depression [employer] History: - - History of miscarriage with D&C required x2. Lives: Spouse/ Significant Other Smoking Status: Never smoker Tobacco Use: Non-smoker Alcohol: None Drugs: None - *Family History Maternal History Items: - - Patient notes a maternal family history of brain cancer. Paternal History Items: - - Patient notes her father was very healthy only medical issue had been reflux. Review of Systems Constitutional: Reports: Anorexia, Chills, Fever, Malaise, Weakness, Fatigue. Denies: Weight Change HEENT: Reports: - - Posterior neck abscess, s/p I+D, still notable drainage, tenderness to the region.. Denies: Head Aches, Sinus Congestion, Sinus Drainage Cardiovascular: Denies: Chest Pain, Palpitations Respiratory: Denies: Cough, Shortness of breath at rest, Sputum production Gastrointestinal: Denies: Abdominal Pain, Nausea, Vomiting Genitourinary: Denies: Dysuria Musculoskeletal: Reports: Back Pain. Denies: Joint Pain, Joint Tenderness Skin: Reports: Skin Changes, Wounds. Denies: Rash Neurological: Denies: Numbness, Tingling, Focal weakness Psychiatric: Reports: Anxiety, Depression. Denies: Homicidal Ideations, Suicidal Ideations Hematologic/ Lymphatic: Denies: Easy Bruising, Easy Bleeding VTE Information - Inpt Only VTE Present on Admission: No VTE Mechan Device Prophylaxis: SCD's VTE Pharm Prophylaxis ordered?: Yes Patient Problems: Active and Suspected Problems Sepsis (Acute) Abscess (Acute) Posterior neck and R inguinal abscesses. Subjective: Seated upright in the ED bed, fatigued appearance, notes discomfort to R lower abdomen s/p recent ED I+D. Objective: Physical Examination: General: awake, alert, oriented x 3 and cooperative, seated upright in the ED bed, notes discomfort to R lower abdomen s/p recent ED I+D. Skin: normal color, turgor, no icterus, cyanosis except posterior neck purulent, foul smelling drainage abscess from I+D site, R inguinal region s/p I+D w/ purulent drainage able to be expressed, expectantly TTP, mild erythema. HEENT: AT/NC, EOMI, PERRLA, mildly dry MM, no carotid bruits or JVD noted, see skin for posterior neck findings. Lungs: Diminished BS BL, > bases, moderate effort, no rales, ronchi or wheezing. Heart: Mildly tachycardic with regular rhythm; no gallop, rub audible. Abdomen: soft, morbidly obese, TTP near R lower abdomen as expected, see skin findings, ND, decreased BS, no HSM although habitus makes examination difficult. Extremities: no cyanosis, clubbing, or edema, see skin. Neurological: patient awake, alert, oriented x 3; cognitive function intact; pupils equally reactive to light and accomodation; cranial nerves II-XII grossly normal, moving all 4 extremities, no focal deficits, strength moderately to severe globally decreased secondary to acute presentation. Psychiatric: affect appears fatigued, no acute evidence of depressive or anxiety feelings. - Physical Exam Vital Signs Temp Pulse Resp BP Pulse Ox 98.1 F 124 H 19 H 105/69 92 04/29/18 10:15 04/29/18 10:15 04/29/18 10:15 04/29/18 10:15 04/29/18 10:15 Oxygen Delivery Method Room Air Weight: 220 lb Body Mass Index (BMI) 41.5 Finger Stick Blood Glucose 244 Laboratory Tests Past 24 Hrs 04/29/18 04/29/18 04/29/18 09:55 09:55 09:55 WBC 13.1 H RBC 5.15 Hgb 15.0 Hct 45.4 MCV 88.2 MCH 29.1 MCHC 33.0 RDW 13.0 RDW Differential 41.5 Plt Count 282 MPV 11.1 Immature Gran % (Auto) 0.200 Neut % (Auto) 61.7 Lymph % (Auto) 28.8 [place] % (Auto) 8.0 Eos % (Auto) 1.1 Baso % (Auto) 0.2 Absolute Neuts (auto) 8.1 H Absolute Lymphs (auto) 3.77 Total Counted Not Reportable Sodium 135 L Potassium 4.1 Chloride 91 L Carbon Dioxide 32.0 Anion Gap 12 BUN 17 Creatinine 0.80 Estim Creat Clear Calc 70.54 Est GFR (MDRD) Af Amer 102 Est GFR (MDRD) Non-Af 85 BUN/Creatinine Ratio 21.3 H Glucose 381 H Lactic Acid 2.7 H Calcium 9.2 Assessment/Plan All Active Problems Severe sepsis (Acute) Periapical abscess (Acute) Cellulitis and abscess of face (Acute) Periapical abscess with facial involvement (Acute) Sepsis (Acute) Abscess (Acute) UTI (urinary tract infection) (Acute) The patient is a 42 y/o F w/ PMHx: Morbid Obesity, Diabetes mellitus type II w/ Neuropathy, Hx MRSA infectious prior w/ ? roopa to vanc, Anxiety and Depression, HTN, HLD who presents to the [facility] ED on 04/29/18 with history of recently being seen in the ED 1 week prior secondary to discomfort with abscess on her posterior neck with I+D performed at that time, discharged to home, not on abx therapies who now re-presents noting ongoing drainage to the posterior neck I+D site in addition to now onset over the last 48 hours fever, chills, R lower abdomen abscess that is tender to palpation. (1) Acute Sepsis secondary to Infected Posterior Neck Abscess, s/p Prior I+D and Abdominal Wall Mild Cellulitis, Abscess: ED work up included T 98.1, heart rate 131, BP 103/74, respiratory rate 16, 94% room air, CBC with W BC 13.1, hemoglobin 15, platelet 282 with left shift, BMP with sodium 135, chloride 91, BUN/Cr 17/0.80, glucose 381, LA 2.7, Wound Cx obtained per ED, will attempt to add also MRSA Wound PCR. Also requested ED RN to obtain Wound Cx and Wound MRSA PCR of the posterior neck abscess, copious drainage noted. Will admit to [facility], maintain on IVFs, continue IV clindamycin given Vanc allergy with MRSA history and add Zosyn for additional GN coverage, consulting Dr. Stafford for OR as suspect I+D needed with washout, will maintain NPO status as no intake since day prior, hold chemoprophylaxis until able to discuss case with Surgery, continue elevation of head given neck worsen appearing than abdomen, monitor erythema outline with VS checks, Wound RN evaluation, Mag pending for Wound healing. (2) Diabetes mellitus type II: Will continue home insulin regimen, ADA diet, accu checks w/ ISS, continue home gabapentin regimen, HgbA1c pending, nutrition consultation for education and teaching. (3) Hypertension: Continue home regimen including metoprolol, PRN hydralazine. Given low normal BP in the ED will maintain on BP hold parameters. (4) Hyperlipidemia: Continue home statin regimen. (5) Anxiety and depression: Continue home regimen amitriptyline, Wellbutrin, Cymbalta. (6) Morbid Obesity: Weight loss and lifestyle changes encouraged, nutrition consulted. (7) ANA: CPAP q HS, CM to assist with recently noted issues having her CPAP secondary to insurance change. (8) DVT Prophylaxis: SCDs, lovenox to start 04/30/18 pending discussions with surgery for possible OR today. Code Visit Inpatient E&M: 47393 Init Hosp L3
--- NOTE | 2018-04-29 11:40 | NURSING ---
NECK ABCESS SWAB FOR CULTURE AND MRSA PER DR BERNABE
--- NOTE | 2018-04-29 12:14 | EKG12_ITS ---
Test Reason : PRE-OP Blood Pressure : / mmHG Vent. Rate : 119 BPM Atrial Rate : 119 BPM P-R Int : 142 ms QRS Dur : 094 ms QT Int : 334 ms P-R-T Axes : 017 -03 024 degrees QTc Int : 469 ms Sinus tachycardia Moderate voltage criteria for LVH, may be normal variant Borderline ECG When compared with ECG of 30-JUL-2017 10:59, T wave inversion no longer evident in Lateral leads Confirmed by KEVIN ORLANDO, EMMA ([id number]), multimedia editor KAREN BACA ([id number]) on 05/11/2018 1:11:40 PM Referred By: SRINIVASA Confirmed By:EMMA BROWN MD
--- NOTE | 2018-04-29 12:25 | RAD_ITS ---
STUDY: X-RAY CHEST REASON FOR EXAM: Female, 42 years old. Shortness of breath, dyspnea TECHNIQUE: PA and lateral views of the chest. COMPARISON: 07/30/2017 FINDINGS: The lungs are clear and expanded. There is no demonstrated pleural abnormality. Normal size heart. Normal mediastinum and paulette. Normal visualized pulmonary arteries. Normal visualized aortic arch and descending thoracic aorta. There is a dextroscoliosis of the thoracic spine. Normal visualized ribs, clavicles, and shoulders. There is no demonstrated abnormality of the visualized soft tissue structures of the upper abdomen. RAD/Chest PA and Lateral IMPRESSION: 1. No acute cardiopulmonary process. Electronically Signed: Adan Le MD at 12:53 EST , Service support ,
--- NOTE | 2018-04-29 13:41 | CT_ITS ---
STUDY: CT SOFT TISSUE NECK WITHOUT CONTRAST REASON FOR EXAM: Female, 42 years old. Bilateral neck abscesses. History of MRSA. RADIATION DOSAGE (If Supplied By Facility): CTDIvol = ( 23.56 ) mGy, DLP = ( 611.85 ) mGycm TECHNIQUE: The patient was scanned in a multi-detector CT scanner. High resolution transaxial imaging was performed without the administration of intravenous contrast material. Sagittal and coronal images were reconstructed. Individualized dose optimization techniques were used for this CT. COMPARISON: None. FINDINGS: Normal bilateral parotid glands. Normal bilateral cut off sawyer log spaces. Normal bilateral parapharyngeal spaces. Normal bilateral carotid spaces. There are small normal size nodes in the submandibular regions bilaterally. Normal visualized nasopharynx. Normal retropharyngeal space. Normal perivertebral space. Normal visualized bilateral faucial tonsils. The visualized tongue, tongue base and oropharynx are normal. There are small normal size nodes in the carotid spaces and posterior trigone of the neck. There is no evidence of adenopathy. There is no demonstrated abnormal fluid collections or drainable abscesses. Normal epiglottis, bilateral vallecula and hypopharynx. The pre-epiglottic and paraglottic adipose spaces are normal. Normal visualized bilateral piriform sinuses, aryepiglottic folds, vocal cords, and arytenoid-cricoid articulations. Normal subglottic trachea. Normal bilateral lobes of the thyroid gland. Normal visualized pulmonary apices. Normal visualized paranasal sinuses. There is straightening of the cervical spine. CT/Soft Tissue Neck without Contr IMPRESSION: 1. Few small normal size nodes probably reactive. 2. No drainable abscess is seen. 3. Unremarkable airway. Electronically Signed: Miguel Ceja MD at 15:40 EST Tel , Service support ,
[2018-04-29 13:42] LABS: Prothrombin Time (Protime)PT. 13.4 SECONDS (11.7-14.9)
--- NOTE | 2018-04-29 13:42 | CT_ITS ---
STUDY: CT PELVIS WITHOUT CONTRAST REASON FOR EXAM: Female, 42 years old. Abscess right groin area. RADIATION DOSAGE (If Supplied By Facility): CTDIvol = ( 28.00 ) mGy, DLP = ( 1056.13 ) mGycm TECHNIQUE: Transaxial imaging of the pelvis was performed with oral contrast, and without intravenous administration of contrast material. Individualized dose optimization techniques were used for this CT. COMPARISON: October 29, 2015 FINDINGS: Normal urinary bladder. Normal visualized small intestine. Normal visualized colon. There is no pelvic fluid. There is no pelvic mass lesion or lymphadenopathy. Normal visualized pelvic arteries. Within the right inguinal region there is skin thickening and subcutaneous stranding associated with a soft tissue defect. No subcutaneous fluid collection is seen. There is degenerative disc disease noted at L5-S1. CT/Pelvis without IV Contrast IMPRESSION: Right inguinal skin thickening associated with subcutaneous inflammation and no abscess. Degenerative changes. Electronically Signed: Joi Wood MD at 16:02 EST Tel , Service support ,
[2018-04-29 13:43] LABS: Partial Thromboplast Time 28.9 Seconds (24.1-36.2)
[2018-04-29 13:55] LABS: Magnesium 1.7 mg/dL (1.6-2.6)
[2018-04-29 14:08] LABS: Hemoglobin A1c 10.9 % (4.2-6.3)
[2018-04-29 14:11] LABS: Reflex Lactate? Y
--- NOTE | 2018-04-29 14:12 | CON.PCM_ITS ---
- Consult Date of Consult: 04/29/18 - Reason for Consult Asked to see patient by Dr. Griggs for concern of sepsis (lactic acid 2.7, elevated glucose to 381, elevated WBC, and tachycardia) who has known history of neck abscess and also right groin abscess and is diabetic History of Present Illness: 42 y/o obese, non compliant diabetic WF presents with known posterior neck abscess and right groin abscess and was admitted to hospitalist service for concern of sepsis. States that she has had fevers as high as 102F, though she is afebrile upon presentation Admits to poor diabetes regulation. Has history of MRSA infection. Had I&D of neck abscess on 04/22/18 in ED. Right groin abscess started about 2 days ago. I&D'd in the ED today. Past Medical History: Uncontrolled type 2 diabetes mellitus with diabetic polyneuropathy, with long- term current use of insulin (HCC) Diabetes mellitus with neurological manifestations (HCC) Diabetic neuropathy, painful (HCC) Palpitations Sinus tachycardia Neurocardiogenic syncope Atypical chest pain Elevated blood pressure, situational Nausea Abdominal pain, generalized Diverticulosis of large intestine Internal hemorrhoids without mention of complication Cellulitis and abscess of unspecified site Cellulitis and abscess of upper arm and forearm Neck abscess Staring spell Hidradenitis Pilonidal cyst without abscess Osteoarthritis of lumbar spine DDD (degenerative disc disease), lumbar Chronic back pain Spinal stenosis in cervical region Juvenile idiopathic scoliosis of lumbar region Panic disorder without agoraphobia Umbilical discharge Morbid obesity due to excess calories (HCC) Past Surgical History: multiple I&Ds of skin and soft tissue infections cholecystectomy hysterectomy D&C Medications: simvastatin (ZOCOR) 20 mg tablet DULoxetine (CYMBALTA) 60 mg capsule cholecalciferol (VITAMIN D3) 2,000 unit tablet dicyclomine (BENTYL) 20 mg tablet buPROPion SR (ZYBAN SR; WELLBUTRIN SR) 150 mg 12 hr tablet amitriptyline (ELAVIL) 50 mg tablet melatonin 10 mg tab metoprolol succinate ER (TOPROL XL) 25 mg 24 hr tablet insulin NPH human (NOVOLIN N NPH U-100 INSULIN) injection cyclobenzaprine (FLEXERIL) 10 mg tablet gabapentin (NEURONTIN) 600 mg tablet VICTOZA 2-[place] 0.6 mg/0.1 mL (18 mg/3 mL) pnij aspirin, enteric coated (ASPIRIN, ENTERIC COATED) 81 mg EC tablet fluticasone (FLONASE) 50 mcg/actuation nasal spray Allergies: Lyrica [Pregabalin] Mental Status Change Bactrim [Sulfamethoxazole] Hives Keflex [Cephalexin] GI Upset Ultram [Tramadol Hcl] Hives Vancomycin Hives Social history: TOB use denies Review of Systems Constitutional: Reports: Anorexia, Chills, Fever, Malaise, Weakness, Fatigue. Denies: Weight Change HEENT: Reports: - - Posterior neck abscess, s/p I+D, still notable drainage, tenderness to the region.. Denies: Head Aches, Sinus Congestion, Sinus Drainage Cardiovascular: Denies: Chest Pain, Palpitations Respiratory: Denies: Cough, Shortness of breath at rest, Sputum production Gastrointestinal: Denies: Abdominal Pain, Nausea, Vomiting Genitourinary: Denies: Dysuria Musculoskeletal: Reports: Back Pain. Denies: Joint Pain, Joint Tenderness Skin: Reports: Skin Changes, Wounds. Denies: Rash Neurological: Denies: Numbness, Tingling, Focal weakness Psychiatric: Reports: Anxiety, Depression. Denies: Homicidal Ideations, Suicidal Ideations Hematologic/ Lymphatic: Denies: Easy Bruising, Easy Bleeding Physical examination: Vital signs Temp 98.1F HR 116 BP 110/48 RR 18 General WD/WN WF in no apparent distress, alert and oriented, not septic appearing Head: Normocephalic. Eyes: EOM intact with sclera clear and no icterus noted. Neck is supple with no jugular venous distention noted. Trachea is midline. Two small posterior wounds with minimal drainage - wounds probed no further tunneling noted, no surrounding erythema or fluctuance Lungs no labored breathing noted, such as retractions. No cough heard. Heart regular Abdomen soft and benign and obese Normal bowel sounds. Right groin abscess with excess granulation tissue but no surrounding erythema or fluctuance Extremities no calf tenderness noted. No pitting edema noted. Genitourinary/Rectal deferred Skin see above, normal skin integrity. Neurological gait normal, no focal deficits noted Psychological normal affect, patient is anxious but appropriate WBC is 13.1k with no left shift of differential Impression: sites of wound openings from previous I&Ds - no surrounding erythema/fluctuance/cellulitis noted Plan: Hospitalist is concerned about sepsis from infectious source Will therefore order soft tissue CT scan of neck and right groin area, to determine if there are any undrained areas, given that patient is morbidly obese and examination is suboptimal due to patient's body habitus. I had initially offered incision and drainage of right groin wound by the patient's bedside with moderate IV sedation but she refuses because she didn't want needles. She states that she had had a traumatic episode in the ED previous for I&D. Will check CT scan - if any undrained areas will then proceed to OR for drainage and debridement. Otherwise continue with wound care and can be seen in Wound clinic.
[2018-04-29 14:17] LABS: M R Staph aureus DNA By PCR Negative (Negative); Probe Check PASS; Specimen Processing Control PASS; Staph aureus DNA By PCR NEGATIVE (Negative)
[2018-04-29 14:18] LABS: M R Staph aureus DNA By PCR Negative (Negative); Probe Check PASS; Specimen Processing Control PASS; Staph aureus DNA By PCR NEGATIVE (Negative)
[2018-04-29 14:30] LABS: M R Staph aureus DNA By PCR Negative (Negative); Probe Check PASS; Specimen Processing Control PASS; Staph aureus DNA By PCR NEGATIVE (Negative)
[2018-04-29 15:18] LABS: Lactic Acid 2.3 mmol/L (0.4-2.0)
[2018-04-29] MEDS: 0.9% Normal Saline 1,000 ML 100 ML IV (15:27)
[2018-04-29] MEDS: Piperacil/Tazobactam 3.375 GM/50 ML ML IV ×2 (15:28→22:08)
[2018-04-29] MEDS: 0.9% NaCl Peripheral Flush Adult/Peds IV (15:28)
[2018-04-29 15:41] LABS: Bedside Glucose 278 mg/dL (70-110)
--- NOTE | 2018-04-29 16:29 | CM.UR ---
RN [facility] completed. Met face to face with patient and her , introduced myself and explained my role. Dr. Griggs had notified me that she needs cpap supplies and has been having trouble since changing insurances. Currently has MMO. Gave her a list of in-network DMEs including the closed being [facility] and [employer]. Discussed needing new rx for the supplies. She has the machine. States that she originally was going to get some from [facility] after [facility] closed but they wanted a copy of her original sleep study. States she has not been able to get ahold of that. States it was ordered by Dr. Cazares and done at [facility]. States that Dr. Cazares doesn't have it. states it was done about 5 years ago. Maurisio Michelle RN, [facility].
[2018-04-29] MEDS: Gabapentin 600 MG Tablet PO (16:59)
[2018-04-29] MEDS: Dicyclomine 10 MG Capsule 20 MG PO (16:59)
[2018-04-29] MEDS: Insulin Lispro 100 UNIT/ML INSULN.PEN SC ×2 (16:59→21:27)
[2018-04-29] MEDS: Glucerna Shake 120 ML LIQUID PO ×2 (17:03→21:25)
[2018-04-29] MEDS: HYDROcodone Bitartrate/Apap 5/325 Tablet PO (20:58)
[2018-04-29] MEDS: DULoxetine Hcl 60 MG Capsule PO (21:14)
[2018-04-29] MEDS: Mupirocin Ointment 22gm Tube 1 APPLIC NASAL (21:15)
[2018-04-29] MEDS: Famotidine 20 MG Tablet PO (21:17)
[2018-04-29] MEDS: Amitriptyline 25 MG Tablet 50 MG PO (21:18)
[2018-04-29] MEDS: Atorvastatin Calcium 10 MG Tablet PO (21:18)
[2018-04-29] MEDS: MELATONIN 10 MG TABLET PO (21:18)
[2018-04-29] MEDS: buPROPion (SR) 150 MG Tablet.SA PO (21:19)
[2018-04-29 21:36] LABS: Bedside Glucose 326 mg/dL (70-110)
[2018-04-30] VITALS (8 sets, daily range): BP systolic 92–102; BP diastolic 52–67; PULSE 60–106; RESP 16–18; TEMP 36.4–36.7; O2SAT 94–100
[2018-04-30] MEDS: 0.9% Normal Saline 1,000 ML 100 ML IV ×3 (00:54→13:50)
[2018-04-30] MEDS: Dicyclomine 10 MG Capsule 20 MG PO ×3 (06:34→16:55)
[2018-04-30] MEDS: Insulin Lispro 100 UNIT/ML INSULN.PEN SC ×4 (06:36→21:40)
[2018-04-30 06:46] LABS: Bedside Glucose 267 mg/dL (70-110)
[2018-04-30 06:59] LABS: Absolute Lymphocyte Count 2.72 X10^3/ul (0.83-4.51); Basophil# 0.02 X10^3/uL; Basophil% 0.3 % (0-1); Eosinophil# 0.22 X10^3/uL; Eosinophils% 2.8 % (0-5); Hematocrit 37.3 % (37-47); Hemoglobin 12.4 g/dl (12.0-15.0); Lymphocyte # 2.72 X10^3/ul (4.0); Mean Corp Hgb Conc 33.2 g/gl (32-36); Mean Corpuscular Hgb 29.9 pg (27.0-32.0); Mean Corpuscular Volume 89.9 fL (81-99); Monocyte# 0.75 X10^3/uL; Monocyte% 9.6 % (0-10); Neutrophil # 4.04 X10^3/uL (2.7-7.7); Neutrophil % 51.9 % (47-70); Platelet Count 211 K/mm3 (150-450); RBC Distribution Width CV 12.8 % (11.6-14.6); RBC Distribution Width SD 41.3 fl (35.1-43.9); Red Blood Count 4.15 M/mm3 (4.2-5.4); White Blood Count 7.8 K/mm3 (4.4-11.0)
[2018-04-30 07:01] LABS: POSITIVE COUNT NO; POSITIVE DIFFERENTIAL NO; POSITIVE MORPHOLOGY NO
[2018-04-30 07:19] LABS: Anion Gap 10 (5-15); BUN 17 mg/dL (7-18); BUN/Creat Ratio 29.6 RATIO (10-20); Chloride 99 mmol/L (98-107); Creatinine, Serum 0.58 mg/dL (0.55-1.02); EST Glomerular Filtration Rate 123 mL/min (>60); Est Glom Filt Rate - Afr Amer 149 mL/min (>60); Estimated Creatinine Clearance 97.29 ml/min; Glucose 246 mg/dL (74-106); Potassium 4.2 mmol/L (3.5-5.1); Sodium Level 139 mmol/L (136-145)
[2018-04-30] MEDS: Piperacil/Tazobactam 3.375 GM/50 ML ML IV ×3 (07:31→21:33)
--- NOTE | 2018-04-30 07:42 | PCM.PN.HOSP ---
Patient Problems: Active and Suspected Problems Sepsis (Acute) Abscess (Acute) Posterior neck and R inguinal abscesses. Subjective: Patient with no acute events overnight per self and per nursing report. Patient remains afebrile. Discussed again concept of bedside sedation and patient now states she understands and that she would be amenable to debridement of posterior neck as well as right lower abdomen inguinal region wound status post I&D per ED prior with ongoing copious drainage. Blood sugars remain difficult to control. Patient denies fevers, chills, nausea, emesis, abdominal pain, chest pain or dyspnea. Objective: Physical Examination: General: awake, alert, oriented x 3 and cooperative, seated upright in the bed, still ongoing discomfort posterior neck and right groin regions. Skin: normal color, turgor, no icterus, cyanosis except ongoing directly posterior neck purulent, foul smelling drainage from I+D site with no erythema but macerated moist appearing tissue surrounding wound, lateral neck I+D site without marked drainage, R inguinal region s/p I+D w/ ongoing purulent drainage able to be expressed, expectantly TTP, no marked erythema. HEENT: AT/NC, EOMI, PERRLA, improved MM, see skin for neck findings. Lungs: Diminished BS BL, > bases, moderate effort, no rales, ronchi or wheezing. Heart: Regular rate with regular rhythm; no gallop, rub audible. Abdomen: soft, morbidly obese, TTP near R lower abdomen as expected, see skin findings, ND, decreased BS. Extremities: no cyanosis, clubbing, or edema, see skin. Neurological: patient awake, alert, oriented x 3; cognitive function intact; pupils equally reactive to light and accomodation; cranial nerves II-XII grossly normal, moving all 4 extremities, no focal deficits, strength moderately to severe globally decreased secondary to acute presentation. Psychiatric: affect appears improved, normal, no acute evidence of depressive or anxiety feelings. Vitals/I&O's: Vital Signs Temp Pulse Resp BP Pulse Ox 97.9 F 74 18 102/64 100 04/30/18 06:23 04/30/18 06:23 04/30/18 06:23 04/30/18 06:23 04/30/18 06:23 Oxygen Flow Rate (L/min) 2 Oxygen Delivery Method Room Air Weight: 215 lb 6.266 oz Body Mass Index (BMI) 40.6 Finger Stick Blood Glucose 244 Intake and Output for Last 24 Hours 04/28/18 04/29/18 04/30/18 23:59 23:59 23:59 Intake Total 1100 / 1100 2021 Output Total 500 / 500 Balance 1100 / 1100 1521 / 152 Laboratory Results 04/29/18 09:55: WBC 13.1 H, RBC 5.15, Hgb 15.0, Hct 45.4, MCV 88.2, MCH 29.1, MCHC 33.0, RDW 13.0, RDW Differential 41.5, Plt Count 282, MPV 11.1, Immature Gran % (Auto) 0.200, Neut % (Auto) 61.7, Lymph % (Auto) 28.8, [place] % (Auto) 8.0, Eos % (Auto) 1.1, Baso % (Auto) 0.2, Absolute Neuts (auto) 8.1 H, Absolute Lymphs (auto) 3.77, Total Counted Not Reportable 04/29/18 09:55: Lactic Acid 2.7 H 04/29/18 09:55: Sodium 135 L, Potassium 4.1, Chloride 91 L, Carbon Dioxide 32.0, Anion Gap 12, BUN 17, Creatinine 0.80, Estim Creat Clear Calc 70.54, Est GFR (MDRD) Af Amer 102, Est GFR (MDRD) Non-Af 85, BUN/Creatinine Ratio 21.3 H, Glucose 381 H, Calcium 9.2 04/29/18 09:55: PT 13.4, INR 1.0, APTT 28.9 04/29/18 09:55: Magnesium 1.7 04/29/18 09:55: Hemoglobin A1c 10.9 H 04/29/18 11:34: S.aureus Protein A PCR NEGATIVE, MRSA (PCR) Negative 04/29/18 11:45: S.aureus Protein A PCR NEGATIVE, MRSA (PCR) Negative 04/29/18 12:33: S.aureus Protein A PCR NEGATIVE, MRSA (PCR) Negative 04/29/18 14:29: Lactic Acid 2.3 H 04/29/18 15:29: POC Glucose 278 H 04/29/18 21:26: POC Glucose 326 H 04/30/18 05:53: WBC 7.8, RBC 4.15 L, Hgb 12.4, Hct 37.3, MCV 89.9, MCH 29.9, MCHC 33.2, RDW 12.8, RDW Differential 41.3, Plt Count 211, MPV 11.0, Immature Gran % (Auto) 0.400, Neut % (Auto) 51.9, Lymph % (Auto) 35.0, [place] % (Auto) 9.6, Eos % (Auto) 2.8, Baso % (Auto) 0.3, Absolute Neuts (auto) 4.0, Absolute Lymphs (auto) 2.72, Total Counted Not Reportable 04/30/18 05:53: Sodium 139, Potassium 4.2, Chloride 99, Carbon Dioxide 30.0, Anion Gap 10, BUN 17, Creatinine 0.58, Estim Creat Clear Calc 97.29, Est GFR (MDRD) Af Amer 149, Est GFR (MDRD) Non-Af 123, BUN/Creatinine Ratio 29.6 H, Glucose 246 H, Calcium 8.0 L 04/30/18 06:25: POC Glucose 267 H Current Medications Acetaminophen (Tylenol) 650 mg PO Q6H PRN PRN PRN Reason: Non-cardiac pain (mod-severe) Hydrocodone Bitart/Acetaminophen ([place] 5mg-325mg) 1 - 2 tablet PO Q6H PRN PRN PRN Reason: Moderate-severe pain Last Admin: 04/29/18 20:58 Dose: 1 tablet Al Hydroxide/Mg Hydroxide (Mylanta Ii) 30 ml PO Q6H PRN PRN PRN Reason: Gastric burning Amitriptyline HCl (Elavil) 50 mg PO QHS [facility] Last Admin: 04/29/18 21:18 Dose: 50 mg Aspirin (Ecotrin) 81 mg PO DAILY@0800 [facility] Atorvastatin Calcium (Lipitor) 10 mg PO QHS [facility] Last Admin: 04/29/18 21:18 Dose: 10 mg Bupropion HCl (Wellbutrin Sr (150mg Tablets)) 150 mg PO BID [facility] Last Admin: 04/29/18 21:19 Dose: 150 mg Chlorhexidine Gluconate () 1 each TOPICAL DAILY [facility] Stop: 05/05/18 10:01 Cholecalciferol ([facility]itamin [facility]) [facility] Dextrose (D50w Syringe) 0 gm IV X1 PRN; Protocol PRN Reason: Hypoglycemia Dicyclomine HCl (Bentyl) 20 mg PO TIDAC [facility] Last Admin: 04/30/18 06:34 Dose: 20 mg Duloxetine HCl (Cymbalta) 60 mg PO BID [facility] Last Admin: 04/29/18 21:14 Dose: 60 mg Famotidine (Pepcid) 20 mg PO BID [facility] Last Admin: 04/29/18 21:17 Dose: 20 mg Gabapentin ([facility]urontin) [facility] Last Admin: 04/29/18 16:59 Dose: 600 mg Glucagon () 1 mg IM .X1 PRN PRN Reason: Hypoglycemia Hydralazine HCl (Apresoline Iv) 10 mg IV Q4H PRN PRN PRN Reason: SBP > 160 Sodium Chloride () 1,000 mls @ 100 mls/hr IV .Q10H [facility] Last Admin: 04/30/18 00:54 Dose: 100 mls/hr Clindamycin Phosphate 900 mg/ (Dextrose) 56 mls @ 100 mls/hr IV Q8 [facility] Last Admin: 04/30/18 06:15 Dose: 100 mls/hr Piperacillin Sod/Tazobactam Sod (Zosyn) 3.375 gm in 50 mls @ 12.5 mls/hr IV Q8 [facility] Last Admin: 04/30/18 07:31 Dose: 12.5 mls/hr Insulin Glargine (Lantus (Bkc)) 26 units SC QHS [facility] Last Admin: 04/29/18 21:32 Dose: 26 u Insulin Human Lispro (Humalog Kwikpen (Bkc)) 0 unit SC [facility]; Protocol Last Admin: 04/30/18 06:36 Dose: 3 units Magnesium Hydroxide (Milk Of Magnesia) 30 ml PO DAILY PRN PRN PRN Reason: Constipation Melatonin (Melatonin) 10 mg PO QHS [facility] Last Admin: 04/29/18 21:18 Dose: 10 mg Metoprolol Succinate (Toprol Xl (Beta Zelalem)) 25 mg PO DAILY [facility] Morphine Sulfate () 1 - 2 mg IV Q4H PRN PRN PRN Reason: PAIN Mupirocin (Bactroban) 1 applic NASAL BID [facility]; Protocol Stop: 05/04/18 10:01 Last Admin: 04/29/18 21:15 Dose: 1 oint Nutritional Formula (Lactose Free) (Glucerna Shake) 120 ml PO 4X/DAY [facility] Last Admin: 04/29/18 21:25 Dose: 120 ml Ondansetron HCl (Zofran) 4 mg IV Q8H PRN PRN PRN Reason: NAUSEA/VOMITING Sodium Chloride () 5 - 15 ml IV UD PRN PRN Reason: SALINE FLUSH Last Admin: 04/29/18 15:28 Dose: 10 ml Medical Necessity - Tobacco Use Smoking Status: Never smoker Tobacco Use: Non-smoker Assessment/Plan All Active Problems Severe sepsis (Acute) Periapical abscess (Acute) Cellulitis and abscess of face (Acute) Periapical abscess with facial involvement (Acute) Sepsis (Acute) Abscess (Acute) UTI (urinary tract infection) (Acute) The patient is a 42 y/o F w/ PMHx: Morbid Obesity, Diabetes mellitus type II w/ Neuropathy, Hx MRSA infectious prior w/ ? roopa to vanc, Anxiety and Depression, HTN, HLD who presents to the [facility] ED on 04/29/18 with history of recently being seen in the ED 1 week prior secondary to discomfort with abscess on her posterior neck with I+D performed at that time, discharged to home, not on abx therapies who now re-presents noting ongoing drainage to the posterior neck I+D site in addition to now onset over the last 48 hours fever, chills, R lower abdomen abscess that is tender to palpation. (1) Acute Severe Sepsis secondary to Infected Posterior Neck Abscess, s/p Prior I+D and Abdominal Wall Mild Cellulitis, Abscess: ED work up included T 98.1, heart rate 131, BP 103/74, respiratory rate 16, 94% room air, CBC with WBC 13.1, hgb 15, platelet 282 with left shift, BMP with sodium 135, chloride 91, BUN/Cr 17/0.80, glucose 381, LA 2.7, Wound Cx pending from R groin and posterior neck abscess, both negative MRSA PCR. Admitted to [facility], maintain on IVFs, continue IV clindamycin given Vanc allergy with MRSA history and added Zosyn for additional GN coverage, consultation w/ General surgery and Dr. Stafford for concerns of OR needs, patient initially declined bedside I+D per Dr. Roman with sedation, but now 04/30/[address] Roman pending re-evaluation 04/30/18, maintain NPO status until her assessment, will have assessment per Dr. Stafford Tuesday and will update, hold chemoprophylaxis until re-evaluation per Surgery, continue elevation of head given neck, monitor erythema outline with VS checks, Wound RN evaluation, Mag 1.7, supplement for wound healing. (2) Diabetes mellitus type II: Will continue home insulin regimen, ADA diet, accu checks w/ ISS, continue home gabapentin regimen, HgbA1c pending, nutrition consultation for education and teaching. (3) Hypertension: Continue home regimen including metoprolol, PRN hydralazine. Given low normal BP in the ED will maintain on BP hold parameters. (4) Hyperlipidemia: Continue home statin regimen. (5) Anxiety and depression: Continue home regimen amitriptyline, Wellbutrin, Cymbalta. (6) Morbid Obesity: Weight loss and lifestyle changes encouraged, nutrition consulted. (7) ANA: CPAP q HS, CM to assist with recently noted issues having her CPAP secondary to insurance change. (8) DVT Prophylaxis: SCDs, lovenox to start 04/30/18 pending discussions with surgery for possible OR today. Code Visit Inpatient E&M: 33918 Subs Hosp L3
--- NOTE | 2018-04-30 07:50 | PN_ITS ---
Patient Problems: Active and Suspected Problems Sepsis (Acute) Abscess (Acute) Posterior neck and R inguinal abscesses. Subjective: Patient with no acute events overnight per self and per nursing report. Patient remains afebrile. Discussed again concept of bedside sedation and patient now states she understands and that she would be amenable to debridement of posterior neck as well as right lower abdomen inguinal region wound status post I&D per ED prior with ongoing copious drainage. Blood sugars remain difficult to control. Patient denies fevers, chills, nausea, emesis, abdominal pain, chest pain or dyspnea. Objective: Physical Examination: General: awake, alert, oriented x 3 and cooperative, seated upright in the bed, still ongoing discomfort posterior neck and right groin regions. Skin: normal color, turgor, no icterus, cyanosis except ongoing directly posterior neck purulent, foul smelling drainage from I+D site with no erythema but macerated moist appearing tissue surrounding wound, lateral neck I+D site without marked drainage, R inguinal region s/p I+D w/ ongoing purulent drainage able to be expressed, expectantly TTP, no marked erythema. HEENT: AT/NC, EOMI, PERRLA, improved MM, see skin for neck findings. Lungs: Diminished BS BL, > bases, moderate effort, no rales, ronchi or wheezing. Heart: Regular rate with regular rhythm; no gallop, rub audible. Abdomen: soft, morbidly obese, TTP near R lower abdomen as expected, see skin findings, ND, decreased BS. Extremities: no cyanosis, clubbing, or edema, see skin. Neurological: patient awake, alert, oriented x 3; cognitive function intact; pupils equally reactive to light and accomodation; cranial nerves II-XII grossly normal, moving all 4 extremities, no focal deficits, strength moderately to severe globally decreased secondary to acute presentation. Psychiatric: affect appears improved, normal, no acute evidence of depressive or anxiety feelings. Vitals/I&O's: Vital Signs Temp Pulse Resp BP Pulse Ox 97.9 F 74 18 102/64 100 04/30/18 06:23 04/30/18 06:23 04/30/18 06:23 04/30/18 06:23 04/30/18 06:23 Oxygen Flow Rate (L/min) 2 Oxygen Delivery Method Room Air Weight: 215 lb 6.266 oz Body Mass Index (BMI) 40.6 Finger Stick Blood Glucose 244 Intake and Output for Last 24 Hours 04/28/18 04/29/18 04/30/18 23:59 23:59 23:59 Intake Total 1100 / 1100 2021 Output Total 500 / 500 Balance 1100 / 1100 1521 / 152 Laboratory Results 04/29/18 09:55: WBC 13.1 H, RBC 5.15, Hgb 15.0, Hct 45.4, MCV 88.2, MCH 29.1, MCHC 33.0, RDW 13.0, RDW Differential 41.5, Plt Count 282, MPV 11.1, Immature Gran % (Auto) 0.200, Neut % (Auto) 61.7, Lymph % (Auto) 28.8, [place] % (Auto) 8.0, Eos % (Auto) 1.1, Baso % (Auto) 0.2, Absolute Neuts (auto) 8.1 H, Absolute Lymphs (auto) 3.77, Total Counted Not Reportable 04/29/18 09:55: Lactic Acid 2.7 H 04/29/18 09:55: Sodium 135 L, Potassium 4.1, Chloride 91 L, Carbon Dioxide 32.0, Anion Gap 12, BUN 17, Creatinine 0.80, Estim Creat Clear Calc 70.54, Est GFR (MDRD) Af Amer 102, Est GFR (MDRD) Non-Af 85, BUN/Creatinine Ratio 21.3 H, Glucose 381 H, Calcium 9.2 04/29/18 09:55: PT 13.4, INR 1.0, APTT 28.9 04/29/18 09:55: Magnesium 1.7 04/29/18 09:55: Hemoglobin A1c 10.9 H 04/29/18 11:34: S.aureus Protein A PCR NEGATIVE, MRSA (PCR) Negative 04/29/18 11:45: S.aureus Protein A PCR NEGATIVE, MRSA (PCR) Negative 04/29/18 12:33: S.aureus Protein A PCR NEGATIVE, MRSA (PCR) Negative 04/29/18 14:29: Lactic Acid 2.3 H 04/29/18 15:29: POC Glucose 278 H 04/29/18 21:26: POC Glucose 326 H 04/30/18 05:53: WBC 7.8, RBC 4.15 L, Hgb 12.4, Hct 37.3, MCV 89.9, MCH 29.9, MCHC 33.2, RDW 12.8, RDW Differential 41.3, Plt Count 211, MPV 11.0, Immature Gran % (Auto) 0.400, Neut % (Auto) 51.9, Lymph % (Auto) 35.0, [place] % (Auto) 9.6, Eos % (Auto) 2.8, Baso % (Auto) 0.3, Absolute Neuts (auto) 4.0, Absolute Lymphs (auto) 2.72, Total Counted Not Reportable 04/30/18 05:53: Sodium 139, Potassium 4.2, Chloride 99, Carbon Dioxide 30.0, Anion Gap 10, BUN 17, Creatinine 0.58, Estim Creat Clear Calc 97.29, Est GFR (MDRD) Af Amer 149, Est GFR (MDRD) Non-Af 123, BUN/Creatinine Ratio 29.6 H, Glucose 246 H, Calcium 8.0 L 04/30/18 06:25: POC Glucose 267 H Current Medications Acetaminophen (Tylenol) 650 mg PO Q6H PRN PRN PRN Reason: Non-cardiac pain (mod-severe) Hydrocodone Bitart/Acetaminophen ([place] 5mg-325mg) 1 - 2 tablet PO Q6H PRN PRN PRN Reason: Moderate-severe pain Last Admin: 04/29/18 20:58 Dose: 1 tablet Al Hydroxide/Mg Hydroxide (Mylanta Ii) 30 ml PO Q6H PRN PRN PRN Reason: Gastric burning Amitriptyline HCl (Elavil) 50 mg PO QHS [facility] Last Admin: 04/29/18 21:18 Dose: 50 mg Aspirin (Ecotrin) 81 mg PO DAILY@0800 [facility] Atorvastatin Calcium (Lipitor) 10 mg PO QHS [facility] Last Admin: 04/29/18 21:18 Dose: 10 mg Bupropion HCl (Wellbutrin Sr (150mg Tablets)) 150 mg PO BID [facility] Last Admin: 04/29/18 21:19 Dose: 150 mg Chlorhexidine Gluconate () 1 each TOPICAL DAILY [facility] Stop: 05/05/18 10:01 Cholecalciferol (Vitamin D) [facility] Dextrose (D50w Syringe) 0 gm IV X1 PRN; Protocol PRN Reason: Hypoglycemia Dicyclomine HCl (Bentyl) 20 mg PO TIDAC [facility] Last Admin: 04/30/18 06:34 Dose: 20 mg Duloxetine HCl (Cymbalta) 60 mg PO BID [facility] Last Admin: 04/29/18 21:14 Dose: 60 mg Famotidine (Pepcid) 20 mg PO BID [facility] Last Admin: 04/29/18 21:17 Dose: 20 mg Gabapentin (Neurontin) [facility] Last Admin: 04/29/18 16:59 Dose: 600 mg Glucagon () 1 mg IM .X1 PRN PRN Reason: Hypoglycemia Hydralazine HCl (Apresoline Iv) 10 mg IV Q4H PRN PRN PRN Reason: SBP > 160 Sodium Chloride () 1,000 mls @ 100 mls/hr IV .Q10H [facility] Last Admin: 04/30/18 00:54 Dose: 100 mls/hr Clindamycin Phosphate 900 mg/ (Dextrose) 56 mls @ 100 mls/hr IV Q8 [facility] Last Admin: 04/30/18 06:15 Dose: 100 mls/hr Piperacillin Sod/Tazobactam Sod (Zosyn) 3.375 gm in 50 mls @ 12.5 mls/hr IV Q8 [facility] Last Admin: 04/30/18 07:31 Dose: 12.5 mls/hr Insulin Glargine (Lantus (Bkc)) 26 units SC QHS [facility] Last Admin: 04/29/18 21:32 Dose: 26 u Insulin Human Lispro (Humalog Kwikpen (Bkc)) 0 unit SC [facility]; Protocol Last Admin: 04/30/18 06:36 Dose: 3 units Magnesium Hydroxide (Milk Of Magnesia) 30 ml PO DAILY PRN PRN PRN Reason: Constipation Melatonin (Melatonin) 10 mg PO QHS [facility] Last Admin: 04/29/18 21:18 Dose: 10 mg Metoprolol Succinate (Toprol Xl (Beta Zelalem)) 25 mg PO DAILY [facility] Morphine Sulfate () 1 - 2 mg IV Q4H PRN PRN PRN Reason: PAIN Mupirocin (Bactroban) 1 applic NASAL BID [facility]; Protocol Stop: 05/04/18 10:01 Last Admin: 04/29/18 21:15 Dose: 1 oint Nutritional Formula (Lactose Free) (Glucerna Shake) 120 ml PO 4X/DAY [facility] Last Admin: 04/29/18 21:25 Dose: 120 ml Ondansetron HCl (Zofran) 4 mg IV Q8H PRN PRN PRN Reason: NAUSEA/VOMITING Sodium Chloride () 5 - 15 ml IV UD PRN PRN Reason: SALINE FLUSH Last Admin: 04/29/18 15:28 Dose: 10 ml Medical Necessity - Tobacco Use Smoking Status: Never smoker Tobacco Use: Non-smoker Assessment/Plan All Active Problems Severe sepsis (Acute) Periapical abscess (Acute) Cellulitis and abscess of face (Acute) Periapical abscess with facial involvement (Acute) Sepsis (Acute) Abscess (Acute) UTI (urinary tract infection) (Acute) The patient is a 42 y/o F w/ PMHx: Morbid Obesity, Diabetes mellitus type II w/ Neuropathy, Hx MRSA infectious prior w/ ? roopa to vanc, Anxiety and Depression, HTN, HLD who presents to the [facility] ED on 04/29/18 with history of recently being seen in the ED 1 week prior secondary to discomfort with abscess on her posterior neck with I+D performed at that time, discharged to home, not on abx therapies who now re-presents noting ongoing drainage to the posterior neck I+D site in addition to now onset over the last 48 hours fever, chills, R lower abdomen abscess that is tender to palpation. (1) Acute Severe Sepsis secondary to Infected Posterior Neck Abscess, s/p Prior I+D and Abdominal Wall Mild Cellulitis, Abscess: ED work up included T 98.1, heart rate 131, BP 103/74, respiratory rate 16, 94% room air, CBC with WBC 13.1, hgb 15, platelet 282 with left shift, BMP with sodium 135, chloride 91, BUN/Cr 17/0.80, glucose 381, LA 2.7, Wound Cx pending from R groin and posterior neck abscess, both negative MRSA PCR. Admitted to [facility], maintain on IVFs, continue IV clindamycin given Vanc allergy with MRSA history and added Zosyn for additional GN coverage, consultation w/ General surgery and Dr. Stafford for concerns of OR needs, patient initially declined bedside I+D per Dr. Roman with sedation, but now 04/30/[address] Roman pending re-evaluation 04/30/18, maintain NPO status until her assessment, will have assessment per Dr. Stafford Tuesday and will update, hold chemoprophylaxis until re-evaluation per Surgery, continue elevation of head given neck, monitor erythema outline with VS checks, Wound RN evaluation, Mag 1.7, supplement for wound healing. (2) Diabetes mellitus type II: Will continue home insulin regimen, ADA diet, accu checks w/ ISS, continue home gabapentin regimen, HgbA1c pending, nutrition consultation for education and teaching. (3) Hypertension: Continue home regimen including metoprolol, PRN hydralazine. Given low normal BP in the ED will maintain on BP hold parameters. (4) Hyperlipidemia: Continue home statin regimen. (5) Anxiety and depression: Continue home regimen amitriptyline, Wellbutrin, Cymbalta. (6) Morbid Obesity: Weight loss and lifestyle changes encouraged, nutrition consulted. (7) ANA: CPAP q HS, CM to assist with recently noted issues having her CPAP secondary to insurance change. (8) DVT Prophylaxis: SCDs, lovenox to start 04/30/18 pending discussions with surgery for possible OR today. Code Visit Inpatient E&M: 70503 Subs Hosp L3
[2018-04-30] MEDS: Mupirocin Ointment 22gm Tube 1 APPLIC NASAL ×2 (09:28→21:33)
[2018-04-30] MEDS: Glucerna Shake 120 ML LIQUID PO ×4 (09:29→21:31)
[2018-04-30] MEDS: Midazolam 2 MG/2 ML Syringe IV ×2 (09:29→09:30)
[2018-04-30] MEDS: DULoxetine Hcl 60 MG Capsule PO ×2 (09:29→21:32)
[2018-04-30] MEDS: HYDROmorphone 1 MG/ML Syringe IV (09:29)
[2018-04-30] MEDS: Famotidine 20 MG Tablet PO ×2 (09:31→21:32)
[2018-04-30] MEDS: Gabapentin 600 MG Tablet PO ×2 (09:31→16:55)
[2018-04-30] MEDS: CHLORHEXIDINE GLUC 2% CLOTH 1 EACH TOWELETTE TOPICAL (09:31)
[2018-04-30] MEDS: buPROPion (SR) 150 MG Tablet.SA PO ×3 (09:32→21:33)
[2018-04-30] MEDS: Metoprolol(XL)Succ 25 MG Tablet PO (09:32)
--- NOTE | 2018-04-30 10:23 | OP.PCM_ITS ---
Report of Operation Date of Procedure: 04/30/18 Pre-Operative Diagnosis: skin abscesses - two of posterior neck and one of right groin Post-Operative Diagnosis: same Surgery/Procedure Performed:: incision and drainage of neck abscess x 2 and incision and drainage of right groin abscess Description of Surgical Findings:: body habitus of patient makes to openings to the abscessed cavities difficult to drain adequately, small openings to posterior neck abscesses in the fold of her neck - openings at superior aspect of the abscess cavity and therefore can't drain with patient's upright position, right groin abscess with small opening - cannot drain entire area and also in body fold Type of Anesthesia:: Sedation,Conscious - 4 mg versed IV and 0.5 mg dilaudid IV given 2% xylocaine with epinephrine - 35 ml used Anesthesiologist: Prabha Roman Specimen's removed: aerobic and anaerobic cultures of abscessed sites Estimated Blood Loss (mL): < 10 ml Fluids Replaced: patient given 500 ml bolus IV NS Description of Procedure: After informed consent was given, patient's procedure was done at her bedside. Vital signs were monitored and cardiac monitoring and blood pressure and pulse oxymetry was monitored during the procedure. She was placed on 2 liters oxygen by nasal cannula. Oxygen saturation remained above 92% for the entire procedure. Appropriate time out protocol was followed. Patient given initially 2 mg versed IV and 0.5 mg dilaudid. This was at the start of the procedure for which I&D of the two posterior neck abscesses were done. Then when the right groin abscess was approached, patient was given additional 2 mg versed IV. The posterior neck was cleansed with betadyne and patient's neck had to be flexed and she was placed in the sitting position, because the openings of the abscess cavities were in the fold of the patient's neck and the patient is morbidly obese. The left posterior neck abscess was approached first. The opening of the cavity was at the superior aspect and therefore not draining adequately, since the majority of the cavity was dependent. The skin and subcutaneous tissues were infiltrated with local anesthetic. The abscess cavity was unroofed widely to allow for adequate drainage. This was done by excising all the skin overlying the cavity. This was done by sharp dissection. Hemostasis was achieved with pressure. The dimensions of the cavity were 2 cm x 1.5 cm with a depth of 0.5 cm. The wound was then packed with gauze and dressing applied over this. The right posterior neck abscess was approached next. The opening of the cavity was at the superior aspect and therefore not draining adequately, since the majority of the cavity was dependent. The skin and subcutaneous tissues were infiltrated with local anesthetic. The abscess cavity was unroofed widely to allow for adequate drainage. This was done by excising all the skin overlying the cavity. This was done by sharp dissection. Hemostasis was achieved with pressure. The dimensions of the cavity were 1.5 cm x 1 cm with a depth of < 0.5 cm. The wound was then packed with gauze and dressing applied over this. The right groin abscess was then approached. As stated above, patient was given additional IV sedation with versed. The patient was positioned in the supine position. Her panniculus had to be retracted superiorly because the abscessed site was in a body fold. There was only a small opening to allow for drainage. The skin and subcutaneous tissues were infiltrated with local anesthetic. The abscess cavity was unroofed widely to allow for adequate drainage. This was done by excising all the skin overlying the cavity by sharp dissection. Hemosta sis was achieved by pressure. The dimensions of the cavity were 4 cm x 1.5 cm with a depth of 1 cm. The wound was then packed with gauze and dressing applied over this. Patient tolerated procedure well. - Complications none noted
--- NOTE | 2018-04-30 10:24 | PCM.PN.BLA ---
Progress Note Incision and drainage of abscessed sites - two posterior neck and right groin was done under IV moderate sedation and patient tolerated this. Abscessed sites were not draining dependently and also because of patient's body habitus, could not drain adequately. Therefore openings of the abscessed sites were opened widely. Patient to follow up at the [facility].
--- NOTE | 2018-04-30 11:03 | NURSING ---
cultures obtained during i&d at bedside and sent to lab per dr newberry
[2018-04-30 11:51] LABS: Bedside Glucose 245 mg/dL (70-110)
[2018-04-30] MEDS: HYDROcodone Bitartrate/Apap 5/325 Tablet PO (13:08)
[2018-04-30] MEDS: Enoxaparin 40 MG/0.4 ML Syringe SC (16:56)
[2018-04-30 17:06] LABS: Bedside Glucose 254 mg/dL (70-110)
[2018-04-30] MEDS: Morphine 2 MG/ML Syringe IV (19:58)
[2018-04-30] MEDS: MELATONIN 10 MG TABLET PO (21:32)
[2018-04-30] MEDS: Amitriptyline 25 MG Tablet 50 MG PO (21:33)
[2018-04-30] MEDS: Atorvastatin Calcium 10 MG Tablet PO (21:35)
[2018-04-30 21:51] LABS: Bedside Glucose 202 mg/dL (70-110)
[2018-05-01] MEDS: 0.9% Normal Saline 1,000 ML 100 ML IV ×3 (01:35→22:28)
[2018-05-01] MEDS: HYDROcodone Bitartrate/Apap 5/325 Tablet PO ×2 (01:47→18:09)
[2018-05-01 02:16] VITALS: BP 93/60; PULSE 89; RESP 17; TEMP 36.6; O2SAT 99
[2018-05-01] MEDS: Piperacil/Tazobactam 3.375 GM/50 ML ML IV ×3 (05:15→22:43)
[2018-05-01 05:53] LABS: Absolute Lymphocyte Count 2.22 X10^3/ul (0.83-4.51); Absolute Neutrophil Count 3.3 X10^3/uL (2.0-7.7); Basophil# 0.01 X10^3/uL; Basophil% 0.2 % (0-1); Eosinophil# 0.17 X10^3/uL; Eosinophils% 2.7 % (0-5); Lymphocyte # 2.22 X10^3/ul (4.0); Lymphocyte % 35.6 % (19-41); Mean Corp Hgb Conc 32.5 g/gl (32-36); Mean Corpuscular Hgb 29.3 pg (27.0-32.0); Mean Corpuscular Volume 90.1 fL (81-99); Mean Platelet Vol. 10.5 fl (6.2-12.0); Monocyte# 0.55 X10^3/uL; Monocyte% 8.8 % (0-10); Neutrophil # 3.27 X10^3/uL (2.7-7.7); Neutrophil % 52.4 % (47-70); Platelet Count 227 K/mm3 (150-450); RBC Distribution Width SD 42.1 fl (35.1-43.9); Red Blood Count 4.44 M/mm3 (4.2-5.4); White Blood Count 6.2 K/mm3 (4.4-11.0)
[2018-05-01 06:02] LABS: POSITIVE COUNT NO; POSITIVE DIFFERENTIAL NO; POSITIVE MORPHOLOGY NO
[2018-05-01 06:06] LABS: Anion Gap 7 (5-15); BUN 11 mg/dL (7-18); BUN/Creat Ratio 20.6 RATIO (10-20); Chloride 103 mmol/L (98-107); Creatinine, Serum 0.53 mg/dL (0.55-1.02); EST Glomerular Filtration Rate 134 mL/min (>60); Est Glom Filt Rate - Afr Amer 163 mL/min (>60); Estimated Creatinine Clearance 106.47 ml/min; Glucose 203 mg/dL (74-106); Potassium 4.2 mmol/L (3.5-5.1); Sodium Level 140 mmol/L (136-145)
[2018-05-01] MEDS: Dicyclomine 10 MG Capsule 20 MG PO ×3 (06:58→16:46)
[2018-05-01] MEDS: Insulin Lispro 100 UNIT/ML INSULN.PEN SC ×4 (06:59→22:33)
[2018-05-01 07:06] LABS: Bedside Glucose 193 mg/dL (70-110)
[2018-05-01 07:30] VITALS: BP 91/68; PULSE 89; RESP 18; TEMP 36.7; O2SAT 96
[2018-05-01] MEDS: Gabapentin 600 MG Tablet PO (08:29)
[2018-05-01] MEDS: Aspirin E.C. 81 MG Tablet PO (08:29)
[2018-05-01 08:30] VITALS: BP 91/68; PULSE 89
[2018-05-01] MEDS: Famotidine 20 MG Tablet PO ×2 (08:30→22:38)
[2018-05-01] MEDS: DULoxetine Hcl 60 MG Capsule PO ×2 (08:30→22:33)
[2018-05-01] MEDS: Metoprolol(XL)Succ 25 MG Tablet PO (08:30)
[2018-05-01] MEDS: Enoxaparin 40 MG/0.4 ML Syringe SC (08:31)
[2018-05-01] MEDS: Mupirocin Ointment 22gm Tube 1 APPLIC NASAL ×2 (08:31→22:32)
[2018-05-01] MEDS: Glucerna Shake 120 ML LIQUID PO ×4 (08:33→22:31)
--- NOTE | 2018-05-01 10:36 | PCM.PN.HOSP ---
Patient Problems: Active and Suspected Problems Sepsis (Acute) Abscess (Acute) Posterior neck and R inguinal abscesses. Subjective: Doing well feels much better now that her abscesses had been drained. Vitals/I&O's: Vital Signs Temp Pulse Resp BP Pulse Ox 98.0 F 89 18 91/68 96 05/01/18 07:30 05/01/18 08:30 05/01/18 07:30 05/01/18 08:30 05/01/18 07:30 Oxygen Flow Rate (L/min) 2 Oxygen Delivery Method Room Air Weight: 215 lb 6.266 oz Body Mass Index (BMI) 40.6 Finger Stick Blood Glucose 244 Intake and Output for Last 24 Hours 04/29/18 04/30/18 05/01/18 23:59 23:59 23:59 Intake Total 1100 / 1100 4876 / 4876 1024 / 1024 Output Total 2700 / 2700 Balance 1100 / 1100 2176 / 2176 1024 / 1024 General: Alert, Oriented x3, Cooperative, No apparent distress HEENT: Atraumatic, EOMI, Normocephalic Oral: Moist Mucosa Neck: Supple, No JVD, Trachea Midline Lungs: Clear to auscultation, Normal air movement, No rhonchi, No wheeze, No rales Cardiovascular: Regular rate, Regular Rhythm, Normal S1, Normal S2, No murmurs Abdomen: Soft, Non Tender, Non-Distended, No Hepato-splenomegaly Extremities: No edema, Capillary Refill Less than 3 Seconds Skin: - - Dressings are intact in her right abdominal wall, and her posterior neck Neurological: Neuro grossly intact, Sensory exam intact to light touch and pain Psych/Mental Status: Normal Affect, Appropriate Microbiology Past 72 Hours 04/30/18 10:00 Abs - Groin Gram Stain - Final 04/30/18 10:00 Other - Aerobic & Anaerobic Swabs Gram Stain - Final 04/29/18 11:45 Wound - Neck Gram Stain - Final 04/29/18 11:45 Wound - Neck Wound Culture - Preliminary Gram positive catracho Coag Negative Staph 04/29/18 09:55 Wound Abcess - Abdominal Gram Stain - Final 04/29/18 09:55 Wound Abcess - Abdominal Wound Culture - Preliminary Gram positive catracho Coag Negative Staph Laboratory Results 04/30/18 11:45: POC Glucose 245 H 04/30/18 16:51: POC Glucose 254 H 04/30/18 21:39: POC Glucose 202 H 05/01/18 05:04: WBC 6.2, RBC 4.44, Hgb 13.0, Hct 40.0, MCV 90.1, MCH 29.3, MCHC 32.5, RDW 13.0, RDW Differential 42.1, Plt Count 227, MPV 10.5, Immature Gran % (Auto) 0.300, Neut % (Auto) 52.4, Lymph % (Auto) 35.6, [place] % (Auto) 8.8, Eos % (Auto) 2.7, Baso % (Auto) 0.2, Absolute Neuts (auto) 3.3, Absolute Lymphs (auto) 2.22, Total Counted Not Reportable 05/01/18 05:04: Sodium 140, Potassium 4.2, Chloride 103, Carbon Dioxide 30.0, Anion Gap 7, BUN 11, Creatinine 0.53 L, Estim Creat Clear Calc 106.47, Est GFR (MDRD) Af Amer 163, Est GFR (MDRD) Non-Af 134, BUN/Creatinine Ratio 20.6 H, Glucose 203 H, Calcium 8.0 L 05/01/18 06:56: POC Glucose 193 H Current Medications Acetaminophen (Tylenol) 650 mg PO Q6H PRN PRN PRN Reason: Non-cardiac pain (mod-severe) Hydrocodone Bitart/Acetaminophen ([place] 5mg-325mg) 1 - 2 tablet PO Q6H PRN PRN PRN Reason: Moderate-severe pain Last Admin: 05/01/18 01:47 Dose: 2 tablet Al Hydroxide/Mg Hydroxide (Mylanta Ii) 30 ml PO Q6H PRN PRN PRN Reason: Gastric burning Amitriptyline HCl (Elavil) 50 mg PO QHS [facility] Last Admin: 04/30/18 21:33 Dose: 50 mg Aspirin (Ecotrin) 81 mg PO DAILY@0800 [facility] Last Admin: 05/01/18 08:29 Dose: 81 mg Atorvastatin Calcium (Lipitor) 10 mg PO QHS [facility] Last Admin: 04/30/18 21:35 Dose: 10 mg Bupropion HCl (Wellbutrin Sr (150mg Tablets)) 150 mg PO BID [facility] Last Admin: 04/30/18 21:33 Dose: 150 mg Chlorhexidine Gluconate () 1 each TOPICAL DAILY [facility] Stop: 05/05/18 10:01 Last Admin: 04/30/18 09:31 Dose: 1 each Cholecalciferol (Vitamin [facility]) [facility] Last Admin: 05/01/18 08:29 Dose: 2,000 unit Dextrose (D50w Syringe) 0 gm IV X1 PRN; Protocol PRN Reason: Hypoglycemia Dicyclomine HCl (Bentyl) 20 mg PO TIDAC [facility] Last Admin: 05/01/18 06:58 Dose: 20 mg Duloxetine HCl (Cymbalta) 60 mg PO BID [facility] Last Admin: 05/01/18 08:30 Dose: 60 mg Enoxaparin Sodium (Lovenox) 40 mg SC DAILY [facility] Last Admin: 05/01/18 08:31 Dose: 40 mg Famotidine (Pepcid) 20 mg PO BID [facility] Last Admin: 05/01/18 08:30 Dose: 20 mg Gabapentin ([facility]urontin) [facility] Last Admin: 05/01/18 08:29 Dose: 600 mg Glucagon () 1 mg IM .X1 PRN PRN Reason: Hypoglycemia Hydralazine HCl (Apresoline Iv) 10 mg IV Q4H PRN PRN PRN Reason: SBP > 160 Sodium Chloride () 1,000 mls @ 100 mls/hr IV .Q10H [facility] Last Admin: 05/01/18 01:35 Dose: 100 mls/hr Clindamycin Phosphate 900 mg/ (Dextrose) 56 mls @ 100 mls/hr IV Q8 [facility] Last Admin: 05/01/18 05:15 Dose: 100 mls/hr Piperacillin Sod/Tazobactam Sod (Zosyn) 3.375 gm in 50 mls @ 12.5 mls/hr IV Q8 [facility] Last Admin: 05/01/18 05:15 Dose: 12.5 mls/hr Insulin Glargine (Lantus (Bkc)) 25 units SC BID [facility] Last Admin: 05/01/18 08:32 Dose: 25 u Insulin Human Lispro (Humalog Kwikpen (Bkc)) 0 unit SC ACHS [facility]; Protocol Last Admin: 05/01/18 06:59 Dose: 2 units Magnesium Hydroxide (Milk Of Magnesia) 30 ml PO DAILY PRN PRN PRN Reason: Constipation Melatonin (Melatonin) 10 mg PO QHS [facility] Last Admin: 04/30/18 21:32 Dose: 10 mg Metoprolol Succinate (Toprol Xl (Beta Zelalem)) 25 mg PO DAILY [facility] Last Admin: 05/01/18 08:30 Dose: 25 mg Morphine Sulfate () 1 - 2 mg IV Q4H PRN PRN PRN Reason: PAIN Last Admin: 04/30/18 19:58 Dose: 2 mg Mupirocin (Bactroban) 1 applic NASAL BID [facility]; Protocol Stop: 05/04/18 10:01 Last Admin: 05/01/18 08:31 Dose: 1 oint Nutritional Formula (Lactose Free) (Glucerna Shake) 120 ml PO 4X/DAY [facility] Last Admin: 05/01/18 08:33 Dose: 120 ml Ondansetron HCl (Zofran) 4 mg IV Q8H PRN PRN PRN Reason: NAUSEA/VOMITING Sodium Chloride () 5 - 15 ml IV UD PRN PRN Reason: SALINE FLUSH Last Admin: 04/29/18 15:28 Dose: 10 ml Medical Necessity - Tobacco Use Smoking Status: Never smoker Tobacco Use: Non-smoker Assessment/Plan All Active Problems Severe sepsis (Acute) Periapical abscess (Acute) Cellulitis and abscess of face (Acute) Periapical abscess with facial involvement (Acute) Sepsis (Acute) Abscess (Acute) UTI (urinary tract infection) (Acute) 1. 2 abscesses in her posterior neck and one abscess in her abdominal wall with cellulitis leading to severe sepsis which has resolved -Continue with clindamycin and Zosyn, final cultures are pending though they are growing gram-positive catracho and a coag negative staph -Appreciate input from surgery plan for OR tomorrow for further debridement and possible wound VAC placement -We will need wound care while here -Discharge home with home health for wound VAC changes 2. HTN/HLD/morbid obesity/ANA -Continue with her home medications -CPAP nightly, she has been having difficulty getting her CPAP supplies secondary to insurance coverage, will discuss with CM -Discussed lifestyle changes for weight loss 3. DM 2 -Continue with home insulin regimen as well as sliding scale insulin 4. Depression/anxiety -Stable at the moment -Continue with amitriptyline, Wellbutrin, Cymbalta DVT: Lovenox/SCDs Code Visit Inpatient E&M: 06666 Subs Hosp L2
--- NOTE | 2018-05-01 10:47 | PN_ITS ---
Patient Problems: Active and Suspected Problems Sepsis (Acute) Abscess (Acute) Posterior neck and R inguinal abscesses. Subjective: Doing well feels much better now that her abscesses had been drained. Vitals/I&O's: Vital Signs Temp Pulse Resp BP Pulse Ox 98.0 F 89 18 91/68 96 05/01/18 07:30 05/01/18 08:30 05/01/18 07:30 05/01/18 08:30 05/01/18 07:30 Oxygen Flow Rate (L/min) 2 Oxygen Delivery Method Room Air Weight: 215 lb 6.266 oz Body Mass Index (BMI) 40.6 Finger Stick Blood Glucose 244 Intake and Output for Last 24 Hours 04/29/18 04/30/18 05/01/18 23:59 23:59 23:59 Intake Total 1100 / 1100 4876 / 4876 1024 / 1024 Output Total 2700 / 2700 Balance 1100 / 1100 2176 / 2176 1024 / 1024 General: Alert, Oriented x3, Cooperative, No apparent distress HEENT: Atraumatic, EOMI, Normocephalic Oral: Moist Mucosa Neck: Supple, No JVD, Trachea Midline Lungs: Clear to auscultation, Normal air movement, No rhonchi, No wheeze, No rales Cardiovascular: Regular rate, Regular Rhythm, Normal S1, Normal S2, No murmurs Abdomen: Soft, Non Tender, Non-Distended, No Hepato-splenomegaly Extremities: No edema, Capillary Refill Less than 3 Seconds Skin: - - Dressings are intact in her right abdominal wall, and her posterior neck Neurological: Neuro grossly intact, Sensory exam intact to light touch and pain Psych/Mental Status: Normal Affect, Appropriate Microbiology Past 72 Hours 04/30/18 10:00 Abs - Groin Gram Stain - Final 04/30/18 10:00 Other - Aerobic & Anaerobic Swabs Gram Stain - Final 04/29/18 11:45 Wound - Neck Gram Stain - Final 04/29/18 11:45 Wound - Neck Wound Culture - Preliminary Gram positive catracho Coag Negative Staph 04/29/18 09:55 Wound Abcess - Abdominal Gram Stain - Final 04/29/18 09:55 Wound Abcess - Abdominal Wound Culture - Preliminary Gram positive catracho Coag Negative Staph Laboratory Results 04/30/18 11:45: POC Glucose 245 H 04/30/18 16:51: POC Glucose 254 H 04/30/18 21:39: POC Glucose 202 H 05/01/18 05:04: WBC 6.2, RBC 4.44, Hgb 13.0, Hct 40.0, MCV 90.1, MCH 29.3, MCHC 32.5, RDW 13.0, RDW Differential 42.1, Plt Count 227, MPV 10.5, Immature Gran % (Auto) 0.300, Neut % (Auto) 52.4, Lymph % (Auto) 35.6, [place] % (Auto) 8.8, Eos % (Auto) 2.7, Baso % (Auto) 0.2, Absolute Neuts (auto) 3.3, Absolute Lymphs (auto) 2.22, Total Counted Not Reportable 05/01/18 05:04: Sodium 140, Potassium 4.2, Chloride 103, Carbon Dioxide 30.0, Anion Gap 7, BUN 11, Creatinine 0.53 L, Estim Creat Clear Calc 106.47, Est GFR (MDRD) Af Amer 163, Est GFR (MDRD) Non-Af 134, BUN/Creatinine Ratio 20.6 H, Glucose 203 H, Calcium 8.0 L 05/01/18 06:56: POC Glucose 193 H Current Medications Acetaminophen (Tylenol) 650 mg PO Q6H PRN PRN PRN Reason: Non-cardiac pain (mod-severe) Hydrocodone Bitart/Acetaminophen ([place] 5mg-325mg) 1 - 2 tablet PO Q6H PRN PRN PRN Reason: Moderate-severe pain Last Admin: 05/01/18 01:47 Dose: 2 tablet Al Hydroxide/Mg Hydroxide (Mylanta Ii) 30 ml PO Q6H PRN PRN PRN Reason: Gastric burning Amitriptyline HCl (Elavil) 50 mg PO QHS [facility] Last Admin: 04/30/18 21:33 Dose: 50 mg Aspirin (Ecotrin) 81 mg PO DAILY@0800 [facility] Last Admin: 05/01/18 08:29 Dose: 81 mg Atorvastatin Calcium (Lipitor) 10 mg PO QHS [facility] Last Admin: 04/30/18 21:35 Dose: 10 mg Bupropion HCl (Wellbutrin Sr (150mg Tablets)) 150 mg PO BID [facility] Last Admin: 04/30/18 21:33 Dose: 150 mg Chlorhexidine Gluconate () 1 each TOPICAL DAILY [facility] Stop: 05/05/18 10:01 Last Admin: 04/30/18 09:31 Dose: 1 each Cholecalciferol ([facility]itamin [facility]) [facility] Last Admin: 05/01/18 08:29 Dose: 2,000 unit Dextrose (D50w Syringe) 0 gm IV X1 PRN; Protocol PRN Reason: Hypoglycemia Dicyclomine HCl (Bentyl) 20 mg PO TIDAC [facility] Last Admin: 05/01/18 06:58 Dose: 20 mg Duloxetine HCl (Cymbalta) 60 mg PO BID [facility] Last Admin: 05/01/18 08:30 Dose: 60 mg Enoxaparin Sodium (Lovenox) 40 mg SC DAILY [facility] Last Admin: 05/01/18 08:31 Dose: 40 mg Famotidine (Pepcid) 20 mg PO BID [facility] Last Admin: 05/01/18 08:30 Dose: 20 mg [facility]ap[facility]in) [facility] Last Admin: 05/01/18 08:29 Dose: 600 mg Glucagon () 1 mg IM .X1 PRN PRN Reason: Hypoglycemia Hydralazine HCl (Apresoline Iv) 10 mg IV Q4H PRN PRN PRN Reason: SBP > 160 Sodium Chloride () 1,000 mls @ 100 mls/hr IV .Q10H [facility] Last Admin: 05/01/18 01:35 Dose: 100 mls/hr Clindamycin Phosphate 900 mg/ (Dextrose) 56 mls @ 100 mls/hr IV Q8 [facility] Last Admin: 05/01/18 05:15 Dose: 100 mls/hr Piperacillin Sod/Tazobactam Sod (Zosyn) 3.375 gm in 50 mls @ 12.5 mls/hr IV Q8 [facility] Last Admin: 05/01/18 05:15 Dose: 12.5 mls/hr Insulin Glargine (Lantus (Bkc)) 25 units SC BID [facility] Last Admin: 05/01/18 08:32 Dose: 25 u Insulin Human Lispro (Humalog Kwikpen (Bkc)) 0 unit SC ACHS [facility]; Protocol Last Admin: 05/01/18 06:59 Dose: 2 units Magnesium Hydroxide (Milk Of Magnesia) 30 ml PO DAILY PRN PRN PRN Reason: Constipation Melatonin (Melatonin) 10 mg PO QHS [facility] Last Admin: 04/30/18 21:32 Dose: 10 mg Metoprolol Succinate (Toprol Xl (Beta Zelalem)) 25 mg PO DAILY [facility] Last Admin: 05/01/18 08:30 Dose: 25 mg Morphine Sulfate () 1 - 2 mg IV Q4H PRN PRN PRN Reason: PAIN Last Admin: 04/30/18 19:58 Dose: 2 mg Mupirocin (Bactroban) 1 applic NASAL BID [facility]; Protocol Stop: 05/04/18 10:01 Last Admin: 05/01/18 08:31 Dose: 1 oint Nutritional Formula (Lactose Free) (Glucerna Shake) 120 ml PO 4X/DAY [facility] Last Admin: 05/01/18 08:33 Dose: 120 ml Ondansetron HCl (Zofran) 4 mg IV Q8H PRN PRN PRN Reason: NAUSEA/VOMITING Sodium Chloride () 5 - 15 ml IV UD PRN PRN Reason: SALINE FLUSH Last Admin: 04/29/18 15:28 Dose: 10 ml Medical Necessity - Tobacco Use Smoking Status: Never smoker Tobacco Use: Non-smoker Assessment/Plan All Active Problems Severe sepsis (Acute) Periapical abscess (Acute) Cellulitis and abscess of face (Acute) Periapical abscess with facial involvement (Acute) Sepsis (Acute) Abscess (Acute) UTI (urinary tract infection) (Acute) 1. 2 abscesses in her posterior neck and one abscess in her abdominal wall with cellulitis leading to severe sepsis which has resolved -Continue with clindamycin and Zosyn, final cultures are pending though they are growing gram-positive catracho and a coag negative staph -Appreciate input from surgery plan for OR tomorrow for further debridement and possible wound VAC placement -We will need wound care while here -Discharge home with home health for wound VAC changes 2. HTN/HLD/morbid obesity/ANA -Continue with her home medications -CPAP nightly, she has been having difficulty getting her CPAP supplies [employer] [place] to insurance coverage, will discuss with CM -Discussed lifestyle changes for weight loss 3. DM 2 -Continue with home insulin regimen as well as sliding scale insulin 4. Depression/anxiety -Stable at the moment -Continue with amitriptyline, Wellbutrin, Cymbalta DVT: Lovenox/SCDs Code Visit Inpatient E&M: 67986 Subs Hosp L2
[2018-05-01 11:11] LABS: Bedside Glucose 282 mg/dL (70-110)
[2018-05-01] MEDS: 0.9% NaCl Peripheral Flush Adult/Peds IV (11:22)
[2018-05-01] MEDS: Morphine 2 MG/ML Syringe IV (11:22)
--- NOTE | 2018-05-01 11:32 | NURSING ---
wound photo:posterior neck cluster (2 wounds)
--- NOTE | 2018-05-01 11:34 | NURSING ---
wound photo: right groin
[2018-05-01] MEDS: CHLORHEXIDINE GLUC 2% CLOTH 1 EACH TOWELETTE TOPICAL (11:39)
--- NOTE | 2018-05-01 12:49 | PCM.CONS.GEN ---
Reason for Consult Date of Consultation: 05/01/18 Reason for Consultation: Diabetic abscesses posterior neck and right lower abdominal wall. REFERRING PHYSICIAN: Dr. Griggs. MAINTENANCE MANAGER: Dr. Stafford. History of Present Illness: The patient is a 42 y/o F with a history of diabetes mellitus presented to the [facility] ED on 04/29/18 with history of recently being seen in the ED 1 week prior secondary to discomfort with abscess on her posterior neck with I+D performed at that time and was discharged to home. No culture was done at that time and no antibiotics were started at that time. She states she worsened over the following week and returned to the ED with worsening of the posterior neck abscess with continued drainage as well as new onset additional abscesses on the posterior neck and the right lower abdominal wall. She had fever and chills. She was admitted to the hospital and started on Cleocin and Zosyn. Her WBC was 13.1 initially. Today her WBC is normal. Her Lactate was 2.7. It has since decreased to 2.3. Wound cultures show Gram positive catracho and Coag negative Staph at this time. Dr. Roman performed an I&D of these posterior neck and right lower abdominal wall abscesses at the bedside yesterday. Silver dressing changes were started. I was asked to evaluate this patient for further surgical and wound care options for treatment. Past Medical History Past Medical History (Chronic Problems): Chronic Problems Panniculitis (Chronic) Abdominal panniculus, symptomatic (Chronic) HTN (hypertension) (Chronic) Hyperlipidemia (Chronic) Morbid obesity due to excess calories (Chronic) History of MRSA infection (Chronic) Type 2 diabetes mellitus (Chronic) Allergies pregabalin [From Lyrica] Allergy (Verified 04/29/18 09:11) Other SI sulfamethoxazole [From Bactrim] Allergy (Verified 04/29/18 09:11) Rash tramadol HCl [From Ultram] Allergy (Verified 04/29/18 09:11) Swelling trimethoprim [From Bactrim] Allergy (Verified 04/29/18 09:11) Rash vancomycin Allergy (Verified 04/29/18 09:11) Swelling Current Medications Acetaminophen (Tylenol) 650 mg PO Q6H PRN Hydrocodone Bitart/Acetaminophen ([place] 5mg-325mg) 1 - 2 tablet PO Q6H PRN Al Hydroxide/Mg Hydroxide (Mylanta Ii) 30 ml PO Q6H PRN Amitriptyline HCl (Elavil) 50 mg PO QHS [facility] Aspirin (Ecotrin) 81 mg PO DAILY@0800 [facility] Atorvastatin Calcium (Lipitor) 10 mg PO QHS [facility] Bupropion HCl (Wellbutrin Sr (150mg Tablets)) 150 mg PO BID [facility] Chlorhexidine Gluconate () 1 each TOPICAL DAILY [facility] Cholecalciferol (Vitamin D) 2,000 unit PO DAILYCM [facility] Dicyclomine HCl (Bentyl) 20 mg PO TIDAC [facility] Duloxetine HCl (Cymbalta) 60 mg PO BID [facility] Enoxaparin Sodium (Lovenox) 40 mg SC DAILY [facility] Famotidine (Pepcid) 20 mg PO BID [facility] Gabapentin (Neurontin) [facility] Glucagon () 1 mg IM .X1 PRN Hydralazine HCl (Apresoline Iv) 10 mg IV Q4H PRN Clindamycin Phosphate 900 mg/ (Dextrose) 56 mls @ 100 mls/hr IV Q8 [facility] Piperacillin Sod/Tazobactam Sod (Zosyn) 3.375 gm in 50 mls @ 12.5 mls/hr IV Q8 [facility] Insulin Glargine (Lantus (Bkc)) 25 units SC BID [facility] Insulin Human Lispro (Humalog Kwikpen (Bkc)) 0 unit SC ACHS [facility]; Protocol Magnesium Hydroxide (Milk Of Magnesia) 30 ml PO DAILY PRN Melatonin (Melatonin) 10 mg PO QHS [facility] Metoprolol Succinate (Toprol Xl (Beta Zelalem)) 25 mg PO DAILY [facility] Morphine Sulfate () 1 - 2 mg IV Q4H PRN Mupirocin (Bactroban) 1 applic NASAL BID [facility]; Protocol Nutritional Formula (Lactose Free) (Glucerna Shake) 120 ml PO 4X/DAY [facility] Ondansetron HCl (Zofran) 4 mg IV Q8H PRN Home Medications: Ambulatory Orders Medication Instructions Recorded Metoprolol(XL)Succ [Toprol Xl 25 mg PO DAILY 08/06/15 (Beta Zelalem)] Amitriptyline HCl 50 mg PO QHS 07/28/17 Aspirin E.C. [Ecotrin] 81 mg PO DAILY@0800 07/28/17 Cholecalciferol (Vitamin D3) 2,000 unit PO DAILY 07/28/17 [Vitamin D3] Dicyclomine HCl [Bentyl] 20 mg PO TIDAC 07/28/17 Duloxetine Hcl [Cymbalta] 60 mg PO BID 07/28/17 Melatonin 10 mg PO QHS 07/28/17 Simvastatin [Zocor] 20 mg PO QHS 07/28/17 buPROPion SR [Wellbutrin SR (150mg 150 mg PO BID 07/28/17 tablets)] Insulin Detemir [Levemir FlexPen] 26 units SC QHS 04/29/18 Metformin HCl [Glucophage] 500 mg PO BIDCM 04/29/18 Gabapentin [Neurontin] 800 mg PO TIDCM 05/01/18 Clindamycin [Cleocin] 300 mg PO TID #42 capsule 05/03/18 Diazepam [Valium] 5 mg PO 4X/DAY PRN PRN #30 tab 05/03/18 Docusate Sodium [Colace] 100 mg PO BID #60 cap 05/03/18 HYDROmorphone tablet [Dilaudid] 2 - 4 mg PO 4X/DAY PRN PRN 7 Days 05/03/18 #60 tab Hydrocodone Bitart/Apap 5-325 1 - 2 tab PO Q6H PRN PRN 4 Days 05/03/18 [[place] 5/325] #15 tab proMETHazine tablet [Phenergan 25 mg PO 4X/DAY PRN PRN #30 tab 05/03/18 tablet] Surgical History: - - Multiple I&D secondary to abscesses including bilateral axilla hidradenitis interventions with resections, cholecystectomy, total hysterectomy, D&C x2 secondary to miscarriages x2. Psychiatric History: Anxiety, Depression [employer] History: - - History of miscarriage with D&C required x2. Lives: Spouse/ Significant Other Smoking Status: Never smoker Tobacco Use: Non-smoker Alcohol: None Drugs: None - *Family History Maternal History Items: - - Patient notes a maternal family history of brain cancer. Paternal History Items: - - Patient notes her father was very healthy only medical issue had been reflux. Review of Systems Comment: Constitutional: Reports: Anorexia, Chills, Fever, Malaise, Weakness, Fatigue. Denies: Weight Change. HEENT: Reports: - - Posterior neck abscess, s/p I+D, still notable drainage, tenderness to the region.. Denies: Head Aches, Sinus Congestion, Sinus Drainage. Cardiovascular: Denies: Chest Pain, Palpitations. Respiratory: Denies: Cough, Shortness of breath at rest, Sputum production. Gastrointestinal: Denies: Abdominal Pain, Nausea, Vomiting. Genitourinary: Denies: Dysuria. Musculoskeletal: Reports: Back Pain. Denies: Joint Pain, Joint Tenderness. Skin: Reports: Skin Changes, Wounds. Denies: Rash. Neurological: Denies: Numbness, Tingling, Focal weakness. Psychiatric: Reports: Anxiety, Depression. Denies: Homicidal Ideations, Suicidal Ideations. Hematologic/ Lymphatic: Denies: Easy Bruising, Easy Bleeding - Physical Exam General: awake, alert, oriented x 3 and cooperative. Skin: normal color, turgor, no icterus, cyanosis except posterior neck purulent, foul smelling drainage abscess from I+D site, R inguinal region s/p I+D w/ purulent drainage able to be expressed, expectantly TTP, mild erythema. HEENT: EOMI, PERRLA. Throat is clear. Neck: There are 2 diabetic abscess wounds on her left posterior neck and right posterior neck. Surrounding induration. Tender to palpation. Recent I&D done. Left wound measures 2 x 1.5 x 0.5 cm. Right wound measures 1.5 x 1 x 0.3 cm. Distance between the diabetic abscess wounds is 3 cm. Lungs: Clear to auscultation. Heart: Regular rate, regular rhythm. Abdomen: soft, obese, nondistended. Has large abdominal panniculus with associated panniculitis. Has abdominal wall skin crease intertrigo. In the right lower abdominal wall in the skin crease is a diabetic abscess wound. Surrounding induration. Tender to palpation. Recent I&D done. Measures 4 x 1.5 x 1 cm. Extremities: no cyanosis, clubbing, or edema. No axillary adenopathy. No inguinal adenopathy. Neurological: cranial nerves II-XII grossly normal. Psychiatric: normal affect and mood. Vital Signs Temp Pulse Resp BP Pulse Ox 98.0 F 89 18 91/68 96 05/01/18 07:30 05/01/18 08:30 05/01/18 07:30 05/01/18 08:30 05/01/18 07:30 Oxygen Flow Rate (L/min) 2 Oxygen Delivery Method Room Air Weight: 215 lb 6.266 oz Body Mass Index (BMI) 40.6 Finger Stick Blood Glucose 244 Intake and Output for Last 24 Hours 04/29/18 04/30/18 05/01/18 23:59 23:59 23:59 Intake Total 1100 / 1100 4876 / 4876 2607 / 2607 Output Total 2700 / 2700 1100 / 1100 Balance 1100 / 1100 2176 / 2176 1507 / 1507 Microbiology Past 72 Hours 04/30/18 10:00 Gram Stain - Final Abs - Groin Wound Culture - Preliminary No growth-Final to follow 04/30/18 10:00 Gram Stain - Final Other - Aerobic & Anaerobic Swabs Wound Culture - Preliminary No growth-Final to follow 04/29/18 11:45 Gram Stain - Final Wound - Neck Wound Culture - Preliminary Gram positive catrahco Coag Negative Staph 04/29/18 09:55 Gram Stain - Final Wound Abcess - Abdominal Wound Culture - Preliminary Gram positive catracho Coag Negative Staph Laboratory Tests Past 24 Hrs 05/01/18 05/01/18 05:04 05:04 WBC 6.2 RBC 4.44 Hgb 13.0 Hct 40.0 MCV 90.1 MCH 29.3 MCHC 32.5 RDW 13.0 RDW Differential 42.1 Plt Count 227 MPV 10.5 Immature Gran % (Auto) 0.300 Neut % (Auto) 52.4 Lymph % (Auto) 35.6 Spink % (Auto) 8.8 Eos % (Auto) 2.7 Baso % (Auto) 0.2 Absolute Neuts (auto) 3.3 Absolute Lymphs (auto) 2.22 Total Counted Not Reportable Sodium 140 Potassium 4.2 Chloride 103 Carbon Dioxide 30.0 Anion Gap 7 BUN 11 Creatinine 0.53 L Estim Creat Clear Calc 106.47 Est GFR (MDRD) Af Amer 163 Est GFR (MDRD) Non-Af 134 BUN/Creatinine Ratio 20.6 H Glucose 203 H Calcium 8.0 L POC Glucose 05/01/18 05/01/18 04/30/18 11:02 06:56 21:39 POC Glucose 282 H 193 H 202 H 04/30/18 16:51 POC Glucose 254 H Assessment/Plan All Active Problems Open wound of abdominal wall with complication (Acute) Open wound of neck with complication (Acute) Necrotizing soft tissue infection (Acute) Abscess of abdominal wall (Acute) Abscess of neck (Acute) Severe sepsis (Acute) Periapical abscess (Acute) Cellulitis and abscess of face (Acute) Periapical abscess with facial involvement (Acute) Sepsis (Acute) Abscess (Acute) UTI (urinary tract infection) (Acute) 1. Diabetic abscess wound left posterior neck. 2. Diabetic abscess wound right posterior neck. 3. Diabetic abscess wound right lower abdominal wall. 4. Abdominal panniculus with panniculitis. 5. Abdominal wall skin crease intertrigo. 6. Diabetes mellitus. 7. Sepsis. 8. Obesity. 9. History of MRSA. CT's reviewed. Continue IV antibiotics with Cleocin and Zosyn. Wound cultures thus far show Gram positive catracho and Coag negative Staph. Continue daily dressing changes with Silver dressings. Recommend operative intervention with incision and drainage and excisional debridement of all the surrounding infected tissue. Patient is diabetic with an increased HgbA1c and is at increased risk for worsening infection. A wider and deeper debridement down to the underlying muscle and fascia will help to decrease that risk. Also a wider excision will make the wound care easier with the VAC as the overhanging panniculus can make outpatient wound care problematic. Will send tissue to Pathology for analysis to rule out carcinoma and to Microbiology for culture. A positive culture may necessitate antibiotic modification. Anticipate increased metabolic demands from the infection and the wounds. Will check a Prealbumin and encourage nutritional supplementation with protein to help the healing process. After discharge, will followup [facility]. She will also followup with her PCP to work on getting the HgbA1c down to a more manageable level. If there is a plateau in the healing process, can proceed with delayed closure with skin grafting. Skin grafting is elective, so the hgbA1c would have to be below 8 before proceeding with the skin graft surgery. Patient was informed of the risks and complications of the procedure including alternatives to surgery. These were discussed with the patient personally. Patient voices understanding and wishes to proceed. Code Visit Inpatient E&M: 12525 Init Hosp L2 - ICD-10 - L02.11, L02.211, S11.90xA, S31.109A, E65, M79.3, E11.9, A41.9, E66.01, Z86.14
--- NOTE | 2018-05-01 12:53 | CON.PCM_ITS ---
Reason for Consult Date of Consultation: 05/01/18 Reason for Consultation: Diabetic abscesses posterior neck and right lower abdominal wall. REFERRING PHYSICIAN: Dr. Griggs. AERIAL TRAM OPERATOR: Dr. Stafford. History of Present Illness: The patient is a 42 y/o F with a history of diabetes mellitus presented to the [facility] ED on 04/29/18 with history of recently being seen in the ED 1 week prior secondary to discomfort with abscess on her posterior neck with I+D performed at that time and was discharged to home. No culture was done at that time and no antibiotics were started at that time. She states she worsened over the following week and returned to the ED with worsening of the posterior neck absce ss with continued drainage as well as new onset additional abscesses on the posterior neck and the right lower abdominal wall. She had fever and chills. She was admitted to the hospital and started on Cleocin and Zosyn. Her WBC was 13.1 initially. Today her WBC is normal. Her Lactate was 2.7. It has since decreased to 2.3. Wound cultures show Gram positive catracho and Coag negative Staph at this time. Dr. Roman performed an I&D of these posterior neck and right lower abdominal wall abscesses at the bedside yesterday. Silver dressing changes were started. I was asked to evaluate this patient for further surgical and wound care options for treatment. Past Medical History Past Medical History (Chronic Problems): Chronic Problems Panniculitis (Chronic) Abdominal panniculus, symptomatic (Chronic) HTN (hypertension) (Chronic) Hyperlipidemia (Chronic) Morbid obesity due to excess calories (Chronic) History of MRSA infection (Chronic) Type 2 diabetes mellitus (Chronic) Allergies pregabalin [From Lyrica] Allergy (Verified 04/29/18 09:11) Other SI sulfamethoxazole [From Bactrim] Allergy (Verified 04/29/18 09:11) Rash tramadol HCl [From Ultram] Allergy (Verified 04/29/18 09:11) Swelling trimethoprim [From Bactrim] Allergy (Verified 04/29/18 09:11) Rash vancomycin Allergy (Verified 04/29/18 09:11) Swelling Current Medications Acetaminophen (Tylenol) 650 mg PO Q6H PRN Hydrocodone Bitart/Acetaminophen ([place] 5mg-325mg) 1 - 2 tablet PO Q6H PRN Al Hydroxide/Mg Hydroxide (Mylanta Ii) 30 ml PO Q6H PRN Amitriptyline HCl (Elavil) 50 mg PO QHS [facility] Aspirin (Ecotrin) 81 mg PO DAILY@0800 [facility] Atorvastatin Calcium (Lipitor) 10 mg PO QHS [facility] Bupropion HCl (Wellbutrin Sr (150mg Tablets)) 150 mg PO BID [facility] Chlorhexidine Gluconate () 1 each TOPICAL DAILY [facility] Cholecalciferol (Vitamin D) 2,000 unit PO DAILYCM [facility] Dicyclomine HCl (Bentyl) 20 mg PO TIDAC [facility] Duloxetine HCl (Cymbalta) 60 mg PO BID [facility] Enoxaparin Sodium (Lovenox) 40 mg SC DAILY [facility] Famotidine (Pepcid) 20 mg PO BID [facility] Gabap[facility] ([facility]ontin) [address] Glucagon () 1 mg IM .X1 PRN Hydralazine HCl (Apresoline Iv) 10 mg IV Q4H PRN Clindamycin Phosphate 900 mg/ (Dextrose) 56 mls @ 100 mls/hr IV Q8 [facility] Piperacillin Sod/Tazobactam Sod (Zosyn) 3.375 gm in 50 mls @ 12.5 mls/hr IV Q8 [facility] Insulin Glargine (Lantus (Bkc)) 25 units SC BID [facility] Insulin Human Lispro (Humalog Kwikpen (Bkc)) 0 unit SC ACHS [facility]; Protocol Magnesium Hydroxide (Milk Of Magnesia) 30 ml PO DAILY PRN Melatonin (Melatonin) 10 mg PO QHS [facility] Metoprolol Succinate (Toprol Xl (Beta Zelalem)) 25 mg PO DAILY [facility] Morphine Sulfate () 1 - 2 mg IV Q4H PRN Mupirocin (Bactroban) 1 applic NASAL BID [facility]; Protocol Nutritional Formula (Lactose Free) (Glucerna Shake) 120 ml PO 4X/DAY [facility] Ondansetron HCl (Zofran) 4 mg IV Q8H PRN Home Medications: Ambulatory Orders Medication Instructions Recorded Metoprolol(XL)Succ [Toprol Xl 25 mg PO DAILY 08/06/15 (Beta Zelalem)] Amitriptyline HCl 50 mg PO QHS 07/28/17 Aspirin E.C. [Ecotrin] 81 mg PO DAILY@0800 07/28/17 Cholecalciferol (Vitamin D3) 2,000 unit PO DAILY 07/28/17 [Vitamin D3] Dicyclomine HCl [Bentyl] 20 mg PO TIDAC 07/28/17 Duloxetine Hcl [Cymbalta] 60 mg PO BID 07/28/17 Melatonin 10 mg PO QHS 07/28/17 Simvastatin [Zocor] 20 mg PO QHS 07/28/17 buPROPion SR [Wellbutrin SR (150mg 150 mg PO BID 07/28/17 tablets)] Insulin Detemir [Levemir FlexPen] 26 units SC QHS 04/29/18 Metformin HCl [Glucophage] 500 mg PO BIDCM 04/29/18 Gabapentin [Neurontin] 800 mg PO TIDCM 05/01/18 Clindamycin [Cleocin] 300 mg PO TID #42 capsule 05/03/18 Diazepam [Valium] 5 mg PO 4X/DAY PRN PRN #30 tab 05/03/18 Docusate Sodium [Colace] 100 mg PO BID #60 cap 05/03/18 HYDROmorphone tablet [Dilaudid] 2 - 4 mg PO 4X/DAY PRN PRN 7 Days 05/03/18 #60 tab Hydrocodone Bitart/Apap 5-325 1 - 2 tab PO Q6H PRN PRN 4 Days 05/03/18 [[place] 5/325] #15 tab proMETHazine tablet [Phenergan 25 mg PO 4X/DAY PRN PRN #30 tab 05/03/18 tablet] Surgical History: - - Multiple I&D secondary to abscesses including bilateral axilla hidradenitis interventions with resections, cholecystectomy, total hysterectomy, D&C x2 secondary to miscarriages x2. 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 Lives: Spouse/ Significant Other Smoking Status: Never smoker Tobacco Use: Non-smoker Alcohol: None Drugs: None - *Family History Maternal History Items: - - Patient notes a maternal family history of brain cancer. Paternal History Items: - - Patient notes her father was very healthy only medical issue had been reflux. Review of Systems Comment: Constitutional: Reports: Anorexia, Chills, Fever, Malaise, Weakness, Fatigue. Denies: Weight Change. HEENT: Reports: - - Posterior neck abscess, s/p I+D, still notable drainage, tenderness to the region.. Denies: Head Aches, Sinus Congestion, Sinus Drainage. Cardiovascular: Denies: Chest Pain, Palpit ations. Respiratory: Denies: Cough, Shortness of breath at rest, Sputum production. Gastrointestinal: Denies: Abdominal Pain, Nausea, Vomiting. Genitourinary: Denies: Dysuria. Musculoskeletal: Reports: Back Pain. Denies: Joint Pain, Joint Tenderness. Skin: Reports: Skin Changes, Wounds. Denies: Rash. Neurological: Denies: Numbness, Tingling, Focal weakness. Psychiatric: Reports: Anxiety, Depression. Denies: Homicidal Ideations, Suicidal Ideations. Hematologic/ Lymphatic: Denies: Easy Bruising, Easy Bleeding - Physical Exam General: awake, alert, oriented x 3 and cooperative. Skin: normal color, turgor, no icterus, cyanosis except posterior neck purulent, foul smelling drainage abscess from I+D site, R inguinal region s/p I+D w/ purulent drainage able to be expressed, expectantly TTP, mild erythema. HEENT: EOMI, PERRLA. Throat is clear. Neck: There are 2 diabetic abscess wounds on her left posterior neck and right posterior neck. Surrounding induration. Tender to palpation. Recent I&D done. Left wound measures 2 x 1.5 x 0.5 cm. Right wound measures 1.5 x 1 x 0.3 cm. Distance between the diabetic abscess wounds is 3 cm. Lungs: Clear to auscultation. Heart: Regular rate, regular rhythm. Abdomen: soft, obese, nondistended. Has large abdominal panniculus with associated panniculitis. Has abdominal wall skin crease intertrigo. In the right lower abdominal wall in the skin crease is a diabetic abscess wound. Surrounding induration. Tender to palpation. Recent I&D done. Measures 4 x 1.5 x 1 cm. Extremities: no cyanosis, clubbing, or edema. No axillary adenopathy. No inguinal adenopathy. Neurological: cranial nerves II-XII grossly normal. Psychiatric: normal affect and mood. Vital Signs Temp Pulse Resp BP Pulse Ox 98.0 F 89 18 91/68 96 05/01/18 07:30 05/01/18 08:30 05/01/18 07:30 05/01/18 08:30 05/01/18 07:30 Oxygen Flow Rate (L/min) 2 Oxygen Delivery Method Room Air Weight: 215 lb 6.266 oz Body Mass Index (BMI) 40.6 Finger Stick Blood Glucose 244 Intake and Output for Last 24 Hours 04/29/18 04/30/18 05/01/18 23:59 23:59 23:59 Intake Total 1100 / 1100 4876 / 4876 2607 / 2607 Output Total 2700 / 2700 1100 / 1100 Balance 1100 / 1100 2176 / 2176 1507 / 1507 Microbiology Past 72 Hours 04/30/18 10:00 Gram Stain - Final Abs - Groin Wound Culture - Preliminary No growth-Final to follow 04/30/18 10:00 Gram Stain - Final Other - Aerobic & Anaerobic Swabs Wound Culture - Preliminary No growth-Final to follow 04/29/18 11:45 Gram Stain - Final Wound - Neck Wound Culture - Preliminary Gram positive catracho Coag Negative Staph 04/29/18 09:55 Gram Stain - Final Wound Abcess - Abdominal Wound Culture - Preliminary Gram positive catracho Coag Negative Staph Laboratory Tests Past 24 Hrs 05/01/18 05/01/18 05:04 05:04 WBC 6.2 RBC 4.44 Hgb 13.0 Hct 40.0 MCV 90.1 MCH 29.3 MCHC 32.5 RDW 13.0 RDW Differential 42.1 Plt Count 227 MPV 10.5 Immature Gran % (Auto) 0.300 Neut % (Auto) 52.4 Lymph % (Auto) 35.6 Centre % (Auto) 8.8 Eos % (Auto) 2.7 Baso % (Auto) 0.2 Absolute Neuts (auto) 3.3 Absolute Lymphs (auto) 2.22 Total Counted Not Reportable Sodium 140 Potassium 4.2 Chloride 103 Carbon Dioxide 30.0 Anion Gap 7 BUN 11 Creatinine 0.53 L Estim Creat Clear Calc 106.47 Est GFR (MDRD) Af Amer 163 Est GFR (MDRD) Non-Af 134 BUN/Creatinine Ratio 20.6 H Glucose 203 H Calcium 8.0 L POC Glucose 05/01/18 05/01/18 04/30/18 11:02 06:56 21:39 POC Glucose 282 H 193 H 202 H 04/30/18 16:51 POC Glucose 254 H Assessment/Plan All Active Problems Open wound of abdominal wall with complication (Acute) Open wound of neck with complication (Acute) Necrotizing soft tissue infection (Acute) Abscess of abdominal wall (Acute) Abscess of neck (Acute) Severe sepsis (Acute) Periapical abscess (Acute) Cellulitis and abscess of face (Acute) Periapical abscess with facial involvement (Acute) Sepsis (Acute) Abscess (Acute) UTI (urinary tract infection) (Acute) 1. Diabetic abscess wound left posterior neck. 2. Diabetic abscess wound right posterior neck. 3. Diabetic abscess wound right lower abdominal wall. 4. Abdominal panniculus with panniculitis. 5. Abdominal wall skin crease intertrigo. 6. Diabetes mellitus. 7. Sepsis. 8. Obesity. 9. History of MRSA. CT's reviewed. Continue IV antibiotics with Cleocin and Zosyn. Wound cultures thus far show Gram positive catracho and Coag negative Staph. Continue daily dressing changes with Silver dressings. Recommend operative intervention with incision and drainage and excisional debridement of all the surrounding infected tissue. Patient is diabetic with an increased HgbA1c and is at increased risk for worsening infection. A wider and deeper debridement down to the underlying muscle and fascia will help to decrease that risk. Also a wider excision will make the wound care easier with the VAC as the overhanging panniculus can make outpatient wound care problematic. Will send tissue to Pathology for analysis to rule out carcinoma and to Microbiology for culture. A positive culture may necessitate antibiotic modification. Anticipate increased metabolic demands from the infection and the wounds. Will check a Prealbumin and encourage nutritional supplementation with protein to help the healing process. After discharge, will followup at the [facility]. She will also followup with her PCP to work on getting the HgbA1c down to a more manageable level. If there is a plateau in the healing process, can proceed with delayed closure with skin grafting. Skin grafting is elective, so the hgbA1c would have to be below 8 before proceeding with the skin graft surgery. Patient was informed of the risks and complications of the procedure including alternatives to surgery. These were discussed with the patient personally. Patient voices understanding and wishes to proceed. Code Visit Inpatient E&M: 97847 Init Hosp L2 - ICD-10 - L02.11, L02.211, S11.90xA, S31.109A, E65, M79.3, E11.9, A41.9, E66.01, Z86.14
[2018-05-01 13:39] VITALS: BP 83/53; PULSE 92; RESP 18; TEMP 36.4; O2SAT 94
[2018-05-01 17:12] LABS: Bedside Glucose 214 mg/dL (70-110)
[2018-05-01] MEDS: Gabapentin 800 MG Tablet PO ×2 (18:02)
[2018-05-01 20:14] VITALS: BP 99/69; PULSE 92; RESP 20; TEMP 36.9; O2SAT 97
[2018-05-01] MEDS: Amitriptyline 25 MG Tablet 50 MG PO (20:23)
[2018-05-01] MEDS: MELATONIN 10 MG TABLET PO (22:37)
[2018-05-01] MEDS: Atorvastatin Calcium 10 MG Tablet PO (22:37)
[2018-05-01] MEDS: buPROPion (SR) 150 MG Tablet.SA PO (22:38)
[2018-05-02] VITALS (11 sets, daily range): BP systolic 99–132; BP diastolic 57–90; PULSE 84–115; RESP 16–18; TEMP 36.3–36.9; O2SAT 92–100; BMI 41.4
[2018-05-02 00:46] LABS: Bedside Glucose 220 mg/dL (70-110)
[2018-05-02] MEDS: Piperacil/Tazobactam 3.375 GM/50 ML ML IV (05:55)
[2018-05-02 07:11] LABS: Bedside Glucose 183 mg/dL (70-110)
--- NOTE | 2018-05-02 08:04 | PCM.PN.BLA ---
Progress Note Patient seen yesterday, will sign off case, Dr. Stafford to take over
--- NOTE | 2018-05-02 08:14 | NURSING ---
PT LEFT FOR SURGERY REPORT CALLED TO [facility]
--- NOTE | 2018-05-02 08:32 | NURSING ---
Pt is currently off the unit for surgery. pt will most likely need a wound VAC post op per Dr Stafford's notes. will see patient after surgery.
--- NOTE | 2018-05-02 08:59 | PCA ---
pt off floor
--- NOTE | 2018-05-02 09:00 | ABS_PTH ---
PATIENT: JAIRO CHAIREZ LOC: MS3 U#:[id number] AGE/SX: 42/F ROOM: [facility] [place], [place] RE04/29/[address]: Dr. Kem Miranda MD : [id number] BED: 1 DIS: 05/03/2018 SPEC #: [id number] RECD: 05/02/18 13:30 STATUS: NORRIS REQ #: [id number] ZAMZAM: 05/02/18 09:[address]: Jt Stafford DEPT: SURGICAL PATHOLOGY RECD BY: Florencio Spencer ENTERED: 05/02/18 13:51 SP TYPE: Abscess OTHR DR: MD Dr. Leticia Melgoza MD Dr. James A Slaby, MD Dr. Linda Wang, MD Dr. Nicholas F Kotsonis, MD Tissues: A - Abdomen, NOS B - Neck, NOS Procedures: Surgery Specimen Level IV Comments: @ Ordering doctor for SUIII edited from to @ by MILLIE at 05/03/18 1601 @ Submitting doctor edited from to @ by RGOOD at 05/03/18 1601 HEADER OPERATION: Incision & drainage abscess, neck and abdominal wall PRE-OP DIAGNOSIS: Abscess of posterior neck and right lower abdomen TISSUE SUBMITTED: A - Right lower abdomen diabetic abscess, B - Posterior neck diabetic abscess MICROSCOPIC DIAGNOSIS A. Skin and soft tissue of right lower abdomen, excision: Ulceration with associated acute and chronic inflammation, granulation, fat necrosis and abscess formation. B. Skin and soft tissue of posterior neck, excision: Ulceration with associated acute and chronic inflammation, granulation, fat necrosis and abscess formation. AM:mercedes 05/04/18 MICROSCOPIC DESCRIPTION Slides are reviewed. GROSS DESCRIPTION A - Received in fixative is one container labeled with the patient's name and designated right lower abdomen diabetic abscess. The specimen consists of a piece of skin with underlying tissue measuring 14 x 6 cm and up to 6 cm in thickness. Sections do not reveal any mass lesion. A focal area of ulceration is noted on the skin surface. Environmental Property Assessor sections are submitted in three cassettes. B - Received in fixative is one container labeled with the patient's name and designated posterior neck diabetic abscess. The specimen consists of a piece of skin with underlying tissue measuring 8 x 3.5 cm and up to 3 cm in thickness. A focal area of ulceration is noted. Sections do not reveal any mass lesion. Environmental Property Assessor sections are submitted in three cassettes. / CRISTOFER:mercedes 05/03/18 TC:2 CPT: 30158 x2
--- NOTE | 2018-05-02 10:08 | PCM.PN.HOSP ---
Patient Problems: Active and Suspected Problems Sepsis (Acute) Abscess (Acute) Posterior neck and R inguinal abscesses. Subjective: Doing well, feels better after the incision and drainage. Denies any fevers or chills. Vitals/I&O's: Vital Signs Temp Pulse Resp BP Pulse Ox 97.8 F 84 16 99/57 L 100 05/02/18 07:32 05/02/18 07:32 05/02/18 07:32 05/02/18 07:32 05/02/18 07:32 Oxygen Flow Rate (L/min) 2 Oxygen Delivery Method Room Air Weight: 219 lb 9.286 oz Body Mass Index (BMI) 41.4 Finger Stick Blood Glucose 244 Intake and Output for Last 24 Hours 04/30/18 05/01/18 05/02/18 23:59 23:59 23:59 Intake Total 4876 / 4876 5557 / 5557 677 / 677 Output Total 2700 / 2700 3200 / 3200 1500 / 1500 Balance 2176 / 2176 2357 / 2357 -823 / -823 General: Alert, Oriented x3, Cooperative, No apparent distress HEENT: Atraumatic, EOMI, Normocephalic Oral: Moist Mucosa Neck: Supple, No JVD, Trachea Midline Lungs: Clear to auscultation, Normal air movement, No rhonchi, No wheeze, No rales Cardiovascular: Regular rate, Regular Rhythm, Normal S1, Normal S2, No murmurs Abdomen: Soft, Non Tender, Non-Distended, No Hepato-splenomegaly Extremities: No edema, Capillary Refill Less than 3 Seconds Skin: - - Dressings are intact in her right abdominal wall, and her posterior neck Neurological: Neuro grossly intact, Sensory exam intact to light touch and pain Psych/Mental Status: Normal Affect, Appropriate Microbiology Past 72 Hours 04/30/18 10:00 Other - Aerobic & Anaerobic Swabs Gram Stain - Final 04/30/18 10:00 Other - Aerobic & Anaerobic Swabs Wound Culture - Preliminary No growth-Final to follow 04/30/18 10:00 Other - Aerobic & Anaerobic Swabs Anaerobic Culture - Preliminary 04/30/18 10:00 Abs - Groin Gram Stain - Final 04/30/18 10:00 Abs - Groin Wound Culture - Preliminary No growth-Final to follow 04/30/18 10:00 Abs - Groin Anaerobic Culture - Preliminary Checking for anaerobes, further studies to follow. 04/29/18 11:45 Wound - Neck Gram Stain - Final 04/29/18 11:45 Wound - Neck Wound Culture - Final Actinomyces odontolyticus Coag Negative Staph 04/29/18 09:55 Wound Abcess - Abdominal Gram Stain - Final 04/29/18 09:55 Wound Abcess - Abdominal Wound Culture - Preliminary Gram positive catracho Coag Negative Staph Laboratory Results 05/01/18 11:02: POC Glucose 282 H 05/01/18 16:48: POC Glucose 214 H 05/01/18 22:30: POC Glucose 220 H 05/02/18 06:57: POC Glucose 183 H Current Medications Acetaminophen (Tylenol) 650 mg PO Q6H PRN PRN PRN Reason: Non-cardiac pain (mod-severe) Hydrocodone Bitart/Acetaminophen ([place] 5mg-325mg) 1 - 2 tablet PO Q6H PRN PRN PRN Reason: Moderate-severe pain Last Admin: 05/01/18 18:09 Dose: 2 tablet Al Hydroxide/Mg Hydroxide (Mylanta Ii) 30 ml PO Q6H PRN PRN PRN Reason: Gastric burning Amitriptyline HCl (Elavil) 50 mg PO QHS [facility] Last Admin: 05/01/18 20:23 Dose: 50 mg Aspirin (Ecotrin) 81 mg PO DAILY@0800 [facility] Last Admin: 05/01/18 08:29 Dose: 81 mg Atorvastatin Calcium (Lipitor) 10 mg PO QHS [facility] Last Admin: 05/01/18 22:37 Dose: 10 mg Bupropion HCl (Wellbutrin Sr (150mg Tablets)) 150 mg PO BID [facility] Last Admin: 05/01/18 22:38 Dose: 150 mg Chlorhexidine Gluconate () 1 each TOPICAL DAILY [facility] Stop: 05/05/18 10:01 Last Admin: 05/01/18 11:39 Dose: 1 each Cholecalciferol (Vitamin D) [facility] Last Admin: 05/01/18 08:29 Dose: 2,000 unit Dextrose (D50w Syringe) 0 gm IV X1 PRN; Protocol PRN Reason: Hypoglycemia Dicyclomine HCl (Bentyl) 20 mg PO TIDAC [facility] Last Admin: 05/02/18 05:55 Dose: Not Given Duloxetine HCl (Cymbalta) 60 mg PO BID [facility] Last Admin: 05/01/18 22:33 Dose: 60 mg Famotidine (Pepcid) 20 mg PO BID [facility] Last Admin: 05/01/18 22:38 Dose: 20 mg Gabapentin (Neurontin) 800 mg PO TIDCM [facility] Last Admin: 05/01/18 18:02 Dose: 800 mg Glucagon () 1 mg IM .X1 PRN PRN Reason: Hypoglycemia Hydralazine HCl (Apresoline Iv) 10 mg IV Q4H PRN PRN PRN Reason: SBP > 160 Sodium Chloride () 1,000 mls @ 100 mls/hr IV .Q10H [facility] Last Admin: 05/01/18 22:28 Dose: 100 mls/hr Clindamycin Phosphate 900 mg/ (Dextrose) 56 mls @ 100 mls/hr IV Q8 [facility] Last Admin: 05/02/18 05:54 Dose: 100 mls/hr Piperacillin Sod/Tazobactam (Sod 3.375 gm/ Sodium Chloride) 50 mls @ 12.5 mls/hr IV Q8 [facility] Insulin Glargine (Lantus (Bkc)) 25 units SC BID [facility] Last Admin: 05/01/18 22:35 Dose: Not Given Insulin Human Lispro (Humalog Kwikpen (Bkc)) 0 unit SC ACHS [facility]; Protocol Last Admin: 05/02/18 06:59 Dose: Not Given Magnesium Hydroxide (Milk Of Magnesia) 30 ml PO DAILY PRN PRN PRN Reason: Constipation Melatonin (Melatonin) 10 mg PO QHS [facility] Last Admin: 05/01/18 22:37 Dose: 10 mg Metoprolol Succinate (Toprol Xl (Beta Zelalem)) 25 mg PO DAILY [facility] Last Admin: 05/01/18 08:30 Dose: 25 mg Morphine Sulfate () 1 - 2 mg IV Q4H PRN PRN PRN Reason: PAIN Last Admin: 05/01/18 11:22 Dose: 2 mg Mupirocin (Bactroban) 1 applic NASAL BID [facility]; Protocol Stop: 05/04/18 10:01 Last Admin: 05/01/18 22:32 Dose: 1 applic Nutritional Formula (Lactose Free) (Glucerna Shake) 120 ml PO 4X/DAY [facility] Last Admin: 05/01/18 22:31 Dose: 120 ml Ondansetron HCl (Zofran) 4 mg IV Q8H PRN PRN PRN Reason: NAUSEA/VOMITING Sodium Chloride () 5 - 15 ml IV UD PRN PRN Reason: SALINE FLUSH Last Admin: 05/01/18 11:22 Dose: 10 ml Medical Necessity - Tobacco Use Smoking Status: Never smoker Tobacco Use: Non-smoker Assessment/Plan All Active Problems Necrotizing soft tissue infection (Acute) Abscess of abdominal wall (Acute) Abscess of neck (Acute) Severe sepsis (Acute) Periapical abscess (Acute) Cellulitis and abscess of face (Acute) Periapical abscess with facial involvement (Acute) Sepsis (Acute) Abscess (Acute) UTI (urinary tract infection) (Acute) 1. 2 abscesses in her posterior neck and one abscess in her abdominal wall with cellulitis leading to severe sepsis which has resolved -Continue with clindamycin and Zosyn, final cultures are pending though they are growing gram-positive catracho and a coag negative staph -Appreciate input from surgery plan for OR today for further debridement and possible wound VAC placement -We will need wound care while here -Discharge home with home health for wound VAC changes 2. HTN/HLD/morbid obesity/ANA -Continue with her home medications -CPAP nightly, she has been having difficulty getting her CPAP supplies secondary to insurance coverage, will discuss with CM -Discussed lifestyle changes for weight loss 3. DM 2 -Continue with home insulin regimen as well as sliding scale insulin 4. Depression/anxiety -Stable at the moment -Continue with amitriptyline, Wellbutrin, Cymbalta DVT: Lovenox/SCDs Code Visit Inpatient E&M: 37369 [facility] Hosp L2
--- NOTE | 2018-05-02 10:31 | PCM.IMDPSTOP ---
Immediate Post-Op Note Date of Procedure: 05/02/18 Primary Surgeon/Physician: Jt Stafford MD caltrans equipment operator: None Pre-Operative Diagnosis: 1. Diabetic abscess wound left posterior neck. 2. Diabetic abscess wound right posterior neck. 3. Diabetic abscess wound right lower abdominal wall. 4. Abdominal panniculus with panniculitis. 5. Abdominal wall skin crease intertrigo. 6. Diabetes mellitus. 7. Sepsis. 8. Obesity. 9. History of MRSA. Post-Operative Diagnosis: 1. Necrotizing diabetic abscess wound left posterior neck. 2. Necrotizing diabetic abscess wound right posterior neck. 3. Necrotizing diabetic abscess wound right lower abdominal wall. 4. Abdominal panniculus with panniculitis. 5. Abdominal wall skin crease intertrigo. 6. Diabetes mellitus. 7. Sepsis. 8. Obesity. 9. History of MRSA. Surgery/Procedure Performed:: 1. Surgical preparation posterior neck with incision and drainage and excisional debridement multiple necrotizing diabetic abscess wounds (45 cm2). 2. Surgical preparation right lower abdominal wall with incision and drainage and excisional debridement skin and subcutaneous tissue for necrotizing soft tissue diabetic abscess wound (231 cm2). Description of Surgical Findings:: The patient is a 42 y/o F with a history of diabetes mellitus presented to the [facility] ED on 04/29/18 with history of recently being seen in the ED 1 week prior secondary to discomfort with abscess on her posterior neck with I+D performed at that time and was discharged to home. No culture was done at that time and no antibiotics were started at that time. She states she worsened over the following week and returned to the ED with worsening of the posterior neck abscess with continued drainage as well as new onset additional abscesses on the posterior neck and the right lower abdominal wall. She had fever and chills. She was admitted to the hospital and started on Cleocin and Zosyn. Her WBC was 13.1 initially. Today her WBC is normal. Her Lactate was 2.7. It has since decreased to 2.3. Wound cultures show Gram positive catracho and Coag negative Staph at this time. Dr. Roman performed an I&D of these posterior neck and right lower abdominal wall abscesses at the bedside yesterday. Silver dressing changes were started. I was asked to evaluate this patient for further surgical and wound care options for treatment. Today the patient underwent surgical preparation posterior neck with incision and drainage and excisional debridement multiple necrotizing diabetic abscess wounds (45 cm2) and surgical preparation right lower abdominal wall with incision and drainage and excisional debridement skin and subcutaneous tissue for necrotizing soft tissue diabetic abscess wound (231 cm2). Size of defect right lower abdominal wall - 21 x 11 x 5 cm. Size of defect posterior neck - 9 x 5 x 3 cm. Estimated Blood Loss: 50 ml. Specimen's removed: 1. Right lower abdominal wall diabetic abscess to Pathology and Microbiology. 2. Posterior neck diabetic abscesses to Pathology and Microbiology. Drains: None. Type of Anesthesia:: General - Admit VTE Documentation VTE Present on Admission: No VTE Mechan Device Prophylaxis: SCD's VTE Pharm Prophylaxis ordered?: Yes
[2018-05-02 10:52] LABS: Bedside Glucose 197 mg/dL (70-110)
--- NOTE | 2018-05-02 11:24 | PCA ---
pt off floor
[2018-05-02 12:06] LABS: Bedside Glucose 231 mg/dL (70-110)
[2018-05-02] MEDS: buPROPion (SR) 150 MG Tablet.SA PO ×2 (12:08→21:48)
[2018-05-02] MEDS: Metoprolol(XL)Succ 25 MG Tablet PO (12:08)
[2018-05-02] MEDS: Famotidine 20 MG Tablet PO ×2 (12:08→21:48)
[2018-05-02] MEDS: DULoxetine Hcl 60 MG Capsule PO ×2 (12:08→21:48)
[2018-05-02] MEDS: Dicyclomine 10 MG Capsule 20 MG PO ×2 (12:09→16:11)
[2018-05-02] MEDS: Aspirin E.C. 81 MG Tablet PO (12:09)
[2018-05-02] MEDS: Insulin Lispro 100 UNIT/ML INSULN.PEN SC ×3 (12:10→21:48)
[2018-05-02] MEDS: Mupirocin Ointment 22gm Tube 1 APPLIC NASAL ×2 (12:22→21:51)
[2018-05-02] MEDS: Gabapentin 800 MG Tablet PO ×2 (12:23→16:12)
[2018-05-02] MEDS: Glucerna Shake 120 ML LIQUID PO ×3 (14:43→21:49)
[2018-05-02] MEDS: HYDROcodone Bitartrate/Apap 5/325 Tablet PO (14:44)
[2018-05-02 16:21] LABS: Bedside Glucose 218 mg/dL (70-110)
--- NOTE | 2018-05-02 16:27 | PCM.OPRPT ---
Report of Operation Date of Procedure: 05/02/18 Pre-Operative Diagnosis: 1. Diabetic abscess wound left posterior neck. 2. Diabetic abscess wound right posterior neck. 3. Diabetic abscess wound right lower abdominal wall. 4. Abdominal panniculus with panniculitis. 5. Abdominal wall skin crease intertrigo. 6. Diabetes mellitus. 7. Sepsis. 8. Obesity. 9. History of MRSA. Post-Operative Diagnosis: 1. Necrotizing diabetic abscess wound left posterior neck. 2. Necrotizing diabetic abscess wound right posterior neck. 3. Necrotizing diabetic abscess wound right lower abdominal wall. 4. Abdominal panniculus with panniculitis. 5. Abdominal wall skin crease intertrigo. 6. Diabetes mellitus. 7. Sepsis. 8. Obesity. 9. History of MRSA. Surgery/Procedure Performed:: 1. Surgical preparation posterior neck with incision and drainage and excisional debridement multiple necrotizing diabetic abscess wounds (45 cm2). 2. Surgical preparation right lower abdominal wall with incision and drainage and excisional debridement skin and subcutaneous tissue for necrotizing soft tissue diabetic abscess wound (231 cm2). Description of Surgical Findings:: The patient is a 42 y/o F with a history of diabetes mellitus presented to the [facility] ED on 04/29/18 with history of recently being seen in the ED 1 week prior secondary to discomfort with abscess on her posterior neck with I+D performed at that time and was discharged to home. No culture was done at that time and no antibiotics were started at that time. She states she worsened over the following week and returned to the ED with worsening of the posterior neck abscess with continued drainage as well as new onset additional abscesses on the posterior neck and the right lower abdominal wall. She had fever and chills. She was admitted to the hospital and started on Cleocin and Zosyn. Her WBC was 13.1 initially. Today her WBC is normal. Her Lactate was 2.7. It has since decreased to 2.3. Wound cultures show Gram positive catracho and Coag negative Staph at this time. Dr. Roman performed an I&D of these posterior neck and right lower abdominal wall abscesses at the bedside yesterday. Silver dressing changes were started. I was asked to evaluate this patient for further surgical and wound care options for treatment. Patient was informed of the risks and complications of the procedure including alternatives to surgery. These were discussed with the patient personally. Patient voices understanding and wishes to proceed. Size of defect right lower abdominal wall - 21 x 11 x 5 cm. Size of defect posterior neck - 9 x 5 x 3 cm. human resources records clerk: None Type of Anesthesia:: General Specimen's removed: 1. Right lower abdominal wall diabetic abscess to Pathology and Microbiology. 2. Posterior neck diabetic abscesses to Pathology and Microbiology. Drains: None. Estimated Blood Loss (mL): 50 ml. Description of Procedure: Patient was taken to OR in supine position and was placed under general anesthesia. The right lower abdominal wall was prepped and draped in the usual fashion. SCD's were placed for DVT prophylaxis. Perioperative antibiotics were given intravenously. Using a scalpel, I proceeded with incision and drainage of the diabetic abscess wound right lower abdominal wall. No gross pus was seen. A lot of induration and fat necrosis was seen with some of it liquefied. Due to this necrotizing process, wider excisional debridement was done which extended through Jinny's fascia down to the abdominal wall fascia. Some of the tissue was sent to Microbiology for culture. The rest of the tissue was sent to Pathology for analysis to rule out carcinoma. Hemostasis was obtained with electrocautery. The wound was irrigated with saline. The size of the right lower abdominal wall wound after incision and drainage and excisional debridement was 21 x 11 x 5 cm or 231 cm2. I packed the wound with Mepitel nonadherent dressing followed by Kerlix gauze with Betadine followed by dry Kerlix gauze and ABD pad compression dressing. An abdominal binder was placed. The patient was then placed in the lateral position to expose the posterior neck diabetic abscess wounds. A portion of the occipital hair was shaved in preparation for the VAC placement tomorrow. The posterior neck was prepped and draped in the usual fashion. Using a scalpel, I proceeded with incision and drainage of the diabetic abscess wounds posterior neck. No gross pus was seen. A lot of induration and fat necrosis was seen with some of it liquefied. Due to this necrotizing process, wider excisional debridement was done down to the neck musculature. Dense scarring from previous infections was seen adherent to the muscle which was excised as well. Some of the tissue was sent to Microbiology for culture. The rest of the tissue was sent to Pathology for analysis to rule out carcinoma. Hemostasis was obtained with electrocautery. The wound was irrigated with saline. The size of the posterior neck wound after incision and drainage and excisional debridement was 9 x 5 x 3 cm or 45 cm2. I packed the wound with Mepitel nonadherent dressing followed by Kerlix gauze with Betadine followed by dry Kerlix gauze and ABD pad compression dressing. Patient tolerated the procedure well and was sent to PACU in satisfactory condition. Patient will be sent upstairs for continued postop care. The VAC will be placed tomorrow. Home Health will assist with the VAC changes three times per week. She will followup at the [facility] after discharge. If the operative cultures are positive, antibiotic modification may be necessary. If there is a plateau in the healing process, patient can proceed with delayed closure with skin grafting. Grafts/Implants Used: None. - Complications None. - Admit VTE Documentation VTE Present on Admission: No VTE Mechan Device Prophylaxis: SCD's VTE Pharm Prophylaxis ordered?: Yes Code Visit Surgery Charges CPT - 98827 ICD-10 - L02.211, S31.109A, M79.89, E11.9, A41.9, E65, M79.3, Z86.14, E66.01 16432 L02.11, S11.90xA, M79.89, E11.9, A41.9, Z86.14, E66.01 62120 L02.11, S11.90xA, M79.89, E11.9, A41.9, Z86.14, E66.01
[2018-05-02] MEDS: 0.9% Normal Saline 1,000 ML 100 ML IV (17:05)
[2018-05-02] MEDS: MELATONIN 10 MG TABLET PO (21:48)
[2018-05-02] MEDS: Atorvastatin Calcium 10 MG Tablet PO (21:48)
[2018-05-02] MEDS: Amitriptyline 25 MG Tablet 50 MG PO (21:48)
--- NOTE | 2018-05-02 22:25 | NURSING ---
Pt is on a continuous pulse ox. Sats were reading between 88 & 90% on room air. Oxygen applied at 2L via n/c and sats quickly david to 98%. Prabha BOATENG aware.
[2018-05-02 22:31] LABS: Bedside Glucose 235 mg/dL (70-110)
[2018-05-03] MEDS: HYDROcodone Bitartrate/Apap 5/325 Tablet PO ×3 (01:17→15:16)
[2018-05-03] MEDS: 0.9% Normal Saline 1,000 ML 100 ML IV (03:58)
[2018-05-03 03:59] VITALS: BP 93/49; PULSE 92; RESP 18; TEMP 36.6; O2SAT 98
[2018-05-03 05:50] LABS: Hematocrit 38.3 % (37-47); Mean Corp Hgb Conc 31.3 g/gl (32-36); Mean Corpuscular Hgb 28.7 pg (27.0-32.0); Mean Corpuscular Volume 91.6 fL (81-99); Mean Platelet Vol. 10.5 fl (6.2-12.0); Platelet Count 227 K/mm3 (150-450); RBC Distribution Width CV 13.1 % (11.6-14.6); RBC Distribution Width SD 42.6 fl (35.1-43.9); Red Blood Count 4.18 M/mm3 (4.2-5.4); White Blood Count 9.5 K/mm3 (4.4-11.0)
[2018-05-03 05:58] LABS: Scan Indicated on CBC? Y/N NO
[2018-05-03] MEDS: Enoxaparin 40 MG/0.4 ML Syringe SC (05:58)
[2018-05-03] MEDS: Dicyclomine 10 MG Capsule 20 MG PO ×2 (05:59→11:34)
[2018-05-03 06:15] LABS: Anion Gap 8 (5-15); BUN 12 mg/dL (7-18); BUN/Creat Ratio 21.4 RATIO (10-20); Chloride 105 mmol/L (98-107); Creatinine, Serum 0.56 mg/dL (0.55-1.02); EST Glomerular Filtration Rate 127 mL/min (>60); Est Glom Filt Rate - Afr Amer 154 mL/min (>60); Estimated Creatinine Clearance 100.77 ml/min; Glucose 229 mg/dL (74-106); Potassium 4.2 mmol/L (3.5-5.1); Prealbumin 15.2 mg/dL (20.0-40.0); Sodium Level 140 mmol/L (136-145)
[2018-05-03] MEDS: Insulin Lispro 100 UNIT/ML INSULN.PEN SC ×2 (06:44→11:56)
[2018-05-03 06:52] LABS: Bedside Glucose 223 mg/dL (70-110)
[2018-05-03 07:16] VITALS: O2SAT 96
[2018-05-03] MEDS: Aspirin E.C. 81 MG Tablet PO (08:02)
[2018-05-03] MEDS: Gabapentin 800 MG Tablet PO ×2 (08:03→11:34)
[2018-05-03 08:09] VITALS: BP 99/66; PULSE 95; RESP 16; TEMP 36.6; O2SAT 99
[2018-05-03] MEDS: HYDROmorphone 1 MG/ML Syringe IV ×2 (08:59→12:11)
[2018-05-03] MEDS: 0.9% NaCl Peripheral Flush Adult/Peds IV ×2 (08:59→12:12)
--- NOTE | 2018-05-03 09:11 | NURSING ---
This nurse gave 1mg of Dilaudid IVP for pre-medicating for wound vac application. Abiola Wound Nurse in room with pt now at this time.
--- NOTE | 2018-05-03 10:07 | NURSING ---
wound photo: right lower abdomen
--- NOTE | 2018-05-03 10:07 | NURSING ---
wound photo: posterior neck
[2018-05-03 10:26] VITALS: BP 82/50; PULSE 103
[2018-05-03] MEDS: buPROPion (SR) 150 MG Tablet.SA PO (10:26)
[2018-05-03] MEDS: Metoprolol(XL)Succ 25 MG Tablet PO (10:26)
[2018-05-03] MEDS: Glucerna Shake 120 ML LIQUID PO (10:26)
[2018-05-03] MEDS: Famotidine 20 MG Tablet PO (10:30)
[2018-05-03] MEDS: DULoxetine Hcl 60 MG Capsule PO (10:30)
--- NOTE | 2018-05-03 10:40 | CASEMGMT ---
RN FELICIA NOTE: Call placed to BOBY Franklin @ [facility]. She confirmed that referral was already made with them for retirement/Wound Vac care and they are able to accept pt. She was made aware Wound Vac was placed today, next Vac change will be Tuesday, that pt will be on MWF schedule, and that probable d/c today 05/03. Sonu SHAIKH RN CM
[2018-05-03] MEDS: Mupirocin Ointment 22gm Tube 1 APPLIC NASAL (10:43)
--- NOTE | 2018-05-03 11:01 | PCM.DC ---
- Discharge Diagnoses Current Active Problems: Current Active and Chronic Problems Sepsis (Acute) Abscess (Acute) Posterior neck and R inguinal abscesses. Morbid obesity due to excess calories (Chronic) History of MRSA infection (Chronic) You will use the following diet at home:: Calorie/Carbohydrate Controlled (specify 1200, 1400, etc), Cardiac Your food should be the consistency of: Regular Your liquids should be the consistency of: Regular/Thin Discharge Activity: May not drive while taking narcotic pain medications. Call your doctor if your incision/area has: Increased Pain/ Swelling, Increased Redness Call your doctor if you observe: Fever of 101 or Higher, Shortness of breath, Dizziness, Chest pain, Increased palpitations (irregular heartbeat) Allergies/Adverse Reactions: Allergies pregabalin [From Lyrica] Allergy (Verified 04/29/18 09:11) Other SI sulfamethoxazole [From Bactrim] Allergy (Verified 04/29/18 09:11) Rash tramadol HCl [From Ultram] Allergy (Verified 04/29/18 09:11) Swelling trimethoprim [From Bactrim] Allergy (Verified 04/29/18 09:11) Rash vancomycin Allergy (Verified 04/29/18 09:11) Swelling Medications to take at Discharge Metoprolol(XL)Succ [Toprol Xl (Beta Zelalem)] 25 mg PO DAILY 08/06/15 Amitriptyline HCl 50 mg PO QHS 07/28/17 Aspirin E.C. [Ecotrin] 81 mg PO DAILY@0800 07/28/17 Cholecalciferol (Vitamin D3) [Vitamin D3] 2,000 unit PO DAILY 07/28/17 Dicyclomine HCl [Bentyl] 20 mg PO TIDAC 07/28/17 Duloxetine Hcl [Cymbalta] 60 mg PO BID 07/28/17 Melatonin 10 mg PO QHS 07/28/17 Simvastatin [Zocor] 20 mg PO QHS 07/28/17 buPROPion SR [Wellbutrin SR (150mg tablets)] 150 mg PO BID 07/28/17 Insulin Detemir [Levemir FlexPen] 26 units SC QHS 04/29/18 Metformin HCl [Glucophage] 500 mg PO BIDCM 04/29/18 Gabapentin [Neurontin] 800 mg PO TIDCM 05/01/18 Clindamycin [Cleocin] 300 mg PO TID #42 capsule 05/03/18 Hydrocodone Bitart/Apap 5-325 [[place] 5/325] 1 - 2 tab PO Q6H PRN PRN 4 Days #15 tab 05/03/18 The following prescriptions were given: Hydrocodone Bitart/Apap 5-325 [[place] 5/325] 1 - 2 tab PO Q6H PRN PRN 4 Days #15 tab PRN Reason: Moderate-severe pain Clindamycin [Cleocin] 300 mg PO TID #42 capsule Primary Care Physician: Leticia Agee MD [Primary Care Provider] - Please follow up with your Primary Care Physician in: 3-5 days Test Results: Test results from this visit will be discussed in further detail at your follow-up appointment, if applicable. Please Follow Up With: Wound care clinic When: 1 week
--- NOTE | 2018-05-03 11:04 | DCINST_ITS ---
- Discharge Diagnoses Current Active Problems: Current Active and Chronic Problems Sepsis (Acute) Abscess (Acute) Posterior neck and R inguinal abscesses. Morbid obesity due to excess calories (Chronic) History of MRSA infection (Chronic) You will use the following diet at home:: Calorie/Carbohydrate Controlled (spec karla 1200, 1400, etc), Cardiac Your food should be the consistency of: Regular Your liquids should be the consistency of: Regular/Thin Discharge Activity: May not drive while taking narcotic pain medications. Call your doctor if your incision/area has: Increased Pain/ Swelling, Increased Redness Call your doctor if you observe: Fever of 101 or Higher, Shortness of breath, Dizziness, Chest pain, Increased palpitations (irregular heartbeat) Allergies/Adverse Reactions: Allergies pregabalin [From Lyrica] Allergy (Verified 04/29/18 09:11) Other SI sulfamethoxazole [From Bactrim] Allergy (Verified 04/29/18 09:11) Rash tramadol HCl [From Ultram] Allergy (Verified 04/29/18 09:11) Swelling trimethoprim [From Bactrim] Allergy (Verified 04/29/18 09:11) Rash vancomycin Allergy (Verified 04/29/18 09:11) Swelling Medications to take at Discharge Metoprolol(XL)Succ [Toprol Xl (Beta Zelalem)] 25 mg PO DAILY 08/06/15 Amitriptyline HCl 50 mg PO QHS 07/28/17 Aspirin E.C. [Ecotrin] 81 mg PO DAILY@0800 07/28/17 Cholecalciferol (Vitamin D3) [Vitamin D3] 2,000 unit PO DAILY 07/28/17 Dicyclomine HCl [Bentyl] 20 mg PO TIDAC 07/28/17 Duloxetine Hcl [Cymbalta] 60 mg PO BID 07/28/17 Melatonin 10 mg PO QHS 07/28/17 Simvastatin [Zocor] 20 mg PO QHS 07/28/17 buPROPion SR [Wellbutrin SR (150mg tablets)] 150 mg PO BID 07/28/17 Insulin Detemir [Levemir FlexPen] 26 units SC QHS 04/29/18 Metformin HCl [Glucophage] 500 mg PO BIDCM 04/29/18 Gabapentin [Neurontin] 800 mg PO TIDCM 05/01/18 Clindamycin [Cleocin] 300 mg PO TID #42 capsule 05/03/18 Hydrocodone Bitart/Apap 5-325 [[place] 5/325] 1 - 2 tab PO Q6H PRN PRN 4 Days #15 tab 05/03/18 The following prescriptions were given: Hydrocodone Bitart/Apap 5-325 [[place] 5/325] 1 - 2 tab PO Q6H PRN PRN 4 Days #15 tab PRN Reason: Moderate-severe pain Clindamycin [Cleocin] 300 mg PO TID #42 capsule Primary Care Physician: Leticia Agee MD [Primary Care Provider] - Please follow up with your Primary Care Physician in: 3-5 days Test Results: Test results from this visit will be discussed in further detail at your follow- up appointment, if applicable. Please Follow Up With: Wound care clinic When: 1 week
--- NOTE | 2018-05-03 11:04 | PCM.DC.SUM ---
Discharge Date and Diagnosis - Problem List Patient Problems: Active and Suspected Problems Sepsis (Acute) Abscess (Acute) Posterior neck and R inguinal abscesses. Date of Admission: 04/29/18 Date of Discharge: 05/03/18 - Primary Discharge Diagnosis Active and Suspected Problems Sepsis (Acute) Abscess (Acute) Posterior neck and R inguinal abscesses. - Secondary Discharge Diagnosis Chronic Problems Panniculitis (Chronic) Abdominal panniculus, symptomatic (Chronic) HTN (hypertension) (Chronic) Hyperlipidemia (Chronic) Morbid obesity due to excess calories (Chronic) History of MRSA infection (Chronic) Type 2 diabetes mellitus (Chronic) Hospital Course and Treatment Imaging Results: CT Neck: IMPRESSION: 1. Few small normal size nodes probably reactive. 2. No drainable abscess is seen. 3. Unremarkable airway. CT pelvis: IMPRESSION: Right inguinal skin thickening associated with subcutaneous inflammation and no abscess. Degenerative changes. 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 Diabetic abscess wound left posterior neck. 2. Diabetic abscess wound right posterior neck. 3. Diabetic abscess wound right lower abdominal wall. 4. Abdominal panniculus with panniculitis. 5. Abdominal wall skin crease intertrigo. 6. Diabetes mellitus. 7. Sepsis. 8. Obesity. 9. History of MRSA. Post-Operative Diagnosis: 1. Necrotizing diabetic abscess wound left posterior neck. 2. Necrotizing diabetic abscess wound right posterior neck. 3. Necrotizing diabetic abscess wound right lower abdominal wall. 4. Abdominal panniculus with panniculitis. 5. Abdominal wall skin crease intertrigo. 6. Diabetes mellitus. 7. Sepsis. 8. Obesity. 9. History of MRSA. Surgery/Procedure Performed:: 1. Surgical preparation posterior neck with incision and drainage and excisional debridement multiple necrotizing diabetic abscess wounds (45 cm2). 2. Surgical preparation right lower abdominal wall with incision and drainage and excisional debridement skin and subcutaneous tissue for necrotizing soft tissue diabetic abscess wound (231 cm2) Procedures: Wound vac placement, - - Date of Procedure: 04/30/18 Pre-Operative Diagnosis: skin abscesses - two of posterior neck and one of right groin Post-Operative Diagnosis: same Surgery/Procedure Performed:: incision and drainage of neck abscess x 2 and incision and drainage of right groin abscess Description of Surgical Findings:: body habitus of patient makes to openings to the abscessed cavities difficult to drain adequately, small openings to posterior neck abscesses in the fold of her neck - openings at superior aspect of the abscess cavity and therefore can't drain with patient's upright position, right groin abscess with small opening - cannot drain entire area and also in body fold Type of Anesthesia:: Sedation,Conscious - 4 mg versed IV and 0.5 mg dilaudid IV given 2% xylocaine with epinephrine - 35 ml used Anesthesiologist: Prabha Roman Specimen's removed: aerobic and anaerobic cultures of abscessed sites Estimated Blood Loss (mL): < 10 ml Fluids Replaced: patient given 500 ml bolus IV NS Summary of Care Provided: Per HPI: The patient is a 42 y/o F w/ PMHx: Morbid Obesity, Diabetes mellitus type II w/ Neuropathy, Hx MRSA infectious prior w/ ? roopa to vanc, Anxiety and Depression, HTN, HLD who presents to the [facility] ED on 04/29/18 with history of recently being seen in the ED 1 week prior secondary to discomfort with abscess on her posterior neck with I+D performed at that time, discharged to home, not on abx therapies who now re-presents noting ongoing drainage to the posterior neck I+D site in addition to now onset over the last 48 hours fever, chills, R lower abdomen abscess that is tender to palpation. She notes that the posterior neck I+D region has been continuing to drain, and she notes upon presentation need to also have it assessed again as she cannot herself see the wound. Dressing upon evaluation saturated with purulent material and more expressed with request to patient ED RN to obtain Wound/MRSA Wound from neck also. In the ED work up included T 98.1, heart rate 131, BP 103/74, respiratory rate 16, 94% room air, CBC with W BC 13.1, hemoglobin 15, platelet 282 with left shift, BMP with sodium 135, chloride 91, BUN/Cr 17/0.80, glucose 381, LA 2.7, Wound Cx obtained per ED, will attempt to add also MRSA Wound PCR. In the ED patient administered clindamycin, zofran, morphine. ED I+D performed on the R inguinal region for abscess with decent purulent drainage noted per ED physician. Hospital Course: 1. Severe sepsis secondary to to posterior neck abscesses and a right lower abdominal wall [id number] female who presented to the ER 1 week prior to her admission with posterior neck abscess that was drained in the ER. She presented 1 week later with ongoing drainage to the posterior neck I&D site as well as fevers chills and an abscess in the right lower abdomen. General surgery was consulted and they did a bedside I&D of both the neck and the lower abdominal wall abscess. Plastic surgery then evaluated the patient and took her to the OR for further debridement of both sites. She currently has a wound VAC in her right lower abdominal, as well as her neck. Wound cultures obtained on admission are growing actinomyces as well as corynebacterium as well as coag negative staph. These are likely surface contaminants, however she has been improving on the clindamycin, therefore we will continue with p.o. Clinda 3 times a day for 1 more week. She is to continue with wound care at home and at the wound care center and to help we have also referred her to home health. Her sepsis resolved and her lactic acid was improving, she no longer has a leukocytosis and has been afebrile since admission. She wants to go home and understands that if she develops a fever or chills or has increasing drainage she is to return to the ER. She has been needing pain control periodically during her stay and was discharged with [place] 5/325 for 4 days. 2. Her other medical diagnoses were evaluated in her home medications were continued where appropriate Patient Problems: Active and Suspected Problems Sepsis (Acute) Abscess (Acute) Posterior neck and R inguinal abscesses. Objective: General: Alert, Oriented x3, Cooperative, No apparent distress HEENT: Atraumatic, EOMI, Normocephalic Oral: Moist Mucosa Neck: Supple, No JVD, Trachea Midline Lungs: Clear to auscultation, Normal air movement, No rhonchi, No wheeze, No rales Cardiovascular: Regular rate, Regular Rhythm, Normal S1, Normal S2, No murmurs Abdomen: Soft, Non Tender, Non-Distended, No Hepato-splenomegaly Extremities: No edema, Capillary Refill Less than 3 Seconds Skin: - - Dressings are intact in her right abdominal wall, and her posterior neck Neurological: Neuro grossly intact, Sensory exam intact to light touch and pain Psych/Mental Status: Normal Affect, Appropriate - Physical Exam Vital Signs Temp Pulse Resp BP Pulse Ox 97.8 F 103 H 16 82/50 L 99 05/03/18 08:09 05/03/18 10:26 05/03/18 08:09 05/03/18 10:26 05/03/18 08:09 Oxygen Flow Rate (L/min) 2 Oxygen Delivery Method Room Air Weight: 219 lb 9.286 oz Body Mass Index (BMI) 41.4 Finger Stick Blood Glucose 197 Intake and Output for Last 24 Hours 05/01/18 05/02/18 05/03/18 23:59 23:59 23:59 Intake Total 5557 / 5557 3134 / 3134 2952 / 2952 Output Total 3200 / 3200 3500 / 3500 1600 / 1600 Balance 2357 / 2357 -366 / -366 1352 / 1352 Microbiology Past 72 Hours 05/02/18 10:50 Gram Stain - Final Tissue - Abdominal Wound Culture - Preliminary No growth-Final to follow 04/30/18 10:00 Gram Stain - Final Other - Aerobic & Anaerobic Swabs Wound Culture - Final No growth aerobically. Anaerobic Culture - Final No anaerobic bacteria isolated. 04/30/18 10:00 Gram Stain - Final Abs - Groin Wound Culture - Final No growth aerobically. Anaerobic Culture - Preliminary Checking for anaerobes, further studies to follow. 05/02/18 10:50 Gram Stain - Final Tissue - Neck 04/29/18 11:45 Gram Stain - Final Wound - Neck Wound Culture - Final Corynebacterium striatum Coag Negative Staph 04/29/18 09:55 Gram Stain - Final Wound Abcess - Abdominal Wound Culture - Final Actinomyces odontolyticus Coag Negative Staph Laboratory Tests Past 24 Hrs 05/03/18 05/03/18 05:24 05:24 WBC 9.5 RBC 4.18 L Hgb 12.0 Hct 38.3 MCV 91.6 MCH 28.7 MCHC 31.3 L RDW 13.1 RDW Differential 42.6 Plt Count 227 MPV 10.5 Sodium 140 Potassium 4.2 Chloride 105 Carbon Dioxide 27.0 Anion Gap 8 BUN 12 Creatinine 0.56 Estim Creat Clear Calc 100.77 Est GFR (MDRD) Af Amer 154 Est GFR (MDRD) Non-Af 127 BUN/Creatinine Ratio 21.4 H Glucose 229 H Calcium 8.0 L Prealbumin 15.2 L POC Glucose 05/03/18 05/02/18 05/02/18 06:39 21:33 16:04 POC Glucose 223 H 235 H 218 H 05/02/18 12:03 POC Glucose 231 H Discharge Activity: May not drive while taking narcotic pain medications. Call your doctor if your incision/area has: Increased Pain/ Swelling, Increased Redness Call your doctor if you observe: Fever of 101 or Higher, Shortness of breath, Dizziness, Chest pain, Increased palpitations (irregular heartbeat) Home Medications: Medications to take at Discharge Metoprolol(XL)Succ [Toprol Xl (Beta Zelalem)] 25 mg PO DAILY 08/06/15 Amitriptyline HCl 50 mg PO QHS 07/28/17 Aspirin E.C. [Ecotrin] 81 mg PO DAILY@0800 07/28/17 Cholecalciferol (Vitamin D3) [Vitamin D3] 2,000 unit PO DAILY 07/28/17 Dicyclomine HCl [Bentyl] 20 mg PO TIDAC 07/28/17 Duloxetine Hcl [Cymbalta] 60 mg PO BID 07/28/17 Melatonin 10 mg PO QHS 07/28/17 Simvastatin [Zocor] 20 mg PO QHS 07/28/17 buPROPion SR [Wellbutrin SR (150mg tablets)] 150 mg PO BID 07/28/17 Insulin Detemir [Levemir FlexPen] 26 units SC QHS 04/29/18 Metformin HCl [Glucophage] 500 mg PO BIDCM 04/29/18 Gabapentin [Neurontin] 800 mg PO TIDCM 05/01/18 Clindamycin [Cleocin] 300 mg PO TID #42 capsule 05/03/18 Hydrocodone Bitart/Apap 5-325 [[place] 5/325] 1 - 2 tab PO Q6H PRN PRN 4 Days #15 tab 05/03/18 Following Prescrptions Were Given to Patient: Hydrocodone Bitart/Apap 5-325 [[place] 5/325] 1 - 2 tab PO Q6H PRN PRN 4 Days #15 tab PRN Reason: Moderate-severe pain Clindamycin [Cleocin] 300 mg PO TID #42 capsule Primary Care Physician: Leticia gAee MD [Primary Care Provider] - Please follow up with your Primary Care Physician in: 3-5 days Please Follow Up With: Wound care clinic When: 1 week Disposition: Home with Home Health Minutes spent on discharge:: 35 Patient Condition:: Good Medical Necessity - Tobacco Use Smoking Status: Never smoker Tobacco Use: Non-smoker Meaningful Use Info Meaningful Use Diagnoses (Choose all that apply): None applicable Code Visit Inpatient E&M: 42879 Disch Hosp
--- NOTE | 2018-05-03 11:16 | DS.PCM_ITS ---
Discharge Date and Diagnosis - Problem List Patient Problems: Active and Suspected Problems Sepsis (Acute) Abscess (Acute) Posterior neck and R inguinal abscesses. Date of Admission: 04/29/18 Date of Discharge: 05/03/18 - Primary Discharge Diagnosis Active and Suspected Problems Sepsis (Acute) Abscess (Acute) Posterior neck and R inguinal abscesses. - Secondary Discharge Diagnosis Chronic Problems Panniculitis (Chronic) Abdominal panniculus, symptomatic (Chronic) HTN (hypertension) (Chronic) Hyperlipidemia (Chronic) Morbid obesity due to excess calories (Chronic) History of MRSA infection (Chronic) Type 2 diabetes mellitus (Chronic) Hospital Course and Treatment Imaging Results: CT Neck: IMPRESSION: 1. Few small normal size nodes probably reactive. 2. No drainable abscess is seen. 3. Unremarkable airway. CT pelvis: IMPRESSION: Right inguinal skin thickening associated with subcutaneous inflammation and no abscess. Degenerative changes. Consultations 04/29/18 13:29 Consult: Onc/Wound/death surveys coder Routine Comment: General Surgery Plastic Surgery Operations: - - Date of Procedure: 05/02/18 Primary Surgeon/Physician: Jt Stafford MD plastic surgery coordinator: None Pre-Operative Diagnosis: 1. Diabetic abscess wound left posterior neck. 2. Diabetic abscess wound right posterior neck. 3. Diabetic abscess wound right lower abdominal wall. 4. Abdominal panniculus with panniculitis. 5. Abdominal wall skin crease intertrigo. 6. Diabetes mellitus. 7. Sepsis. 8. Obesity. 9. History of MRSA. Post-Operative Diagnosis: 1. Necrotizing diabetic abscess wound left posterior neck. 2. Necrotizing diabetic abscess wound right posterior neck. 3. Necrotizing diabetic abscess wound right lower abdominal wall. 4. Abdominal panniculus with panniculitis. 5. Abdominal wall skin crease intertrigo. 6. Diabetes mellitus. 7. Sepsis. 8. Obesity. 9. History of MRSA. Surgery/Procedure Performed:: 1. Surgical preparation posterior neck with incision and drainage and excisional debridement multiple necrotizing diabetic abscess wounds (45 cm2). 2. Surgical preparation right lower abdominal wall with incision and drainage and excisional debridement skin and subcutaneous tissue for necrotizing soft tissue diabetic abscess wound (231 cm2) Procedures: Wound vac placement, - - Date of Procedure: 04/30/18 Pre-Operative Diagnosis: skin abscesses - two of posterior neck and one of right groin Post- Operative Diagnosis: same Surgery/Procedure Performed:: incision and drainage of neck abscess x 2 and incision and drainage of right groin abscess Description of Surgical Findings:: body habitus of patient makes to openings to the abscessed cavities difficult to drain adequately, small openings to posterior neck abscesses in the fold of her neck - openings at superior aspect of the abscess cavity and therefore can't drain with patient's upright position, right groin abscess with small opening - cannot drain entire area and also in body fold Type of Anesthesia:: Sedation,Conscious - 4 mg versed IV and 0.5 mg dilaudid IV given 2% xylocaine with epinephrine - 35 ml used Anesthesiologist: Prabha Roman Specimen's removed: aerobic and anaerobic cultures of abscessed sites Estimated Blood Loss (mL): < 10 ml Fluids Replaced: patient given 500 ml bolus IV NS Summary of Care Provided: Per HPI: The patient is a 42 y/o F w/ PMHx: Morbid Obesity, Diabetes mellitus type II w/ Neuropathy, Hx MRSA infectious prior w/ ? roopa to vanc, Anxiety and Depression, HTN, HLD who presents to the [facility] ED on 04/29/18 with history of recent ly being seen in the ED 1 week prior secondary to discomfort with abscess on her posterior neck with I+D performed at that time, discharged to home, not on abx therapies who now re-presents noting ongoing drainage to the posterior neck I+D site in addition to now onset over the last 48 hours fever, chills, R lower abdomen abscess that is tender to palpation. She notes that the posterior neck I+D region has been continuing to drain, and she notes upon presentation need to also have it assessed again as she cannot herself see the wound. Dressing upon evaluation saturated with purulent material and more expressed with request to patient ED RN to obtain Wound/MRSA Wound from neck also. In the ED work up included T 98.1, heart rate 131, BP 103/74, respiratory rate 16, 94% room air, CBC with W BC 13.1, hemoglobin 15, platelet 282 with left shift, BMP with sodium 135, chloride 91, BUN/Cr 17/0.80, glucose 381, LA 2.7, Wound Cx obtained per ED, will attempt to add also MRSA Wound PCR. In the ED patient administered clindamycin, zofran, morphine. ED I+D performed on the R inguinal region for abscess with decent purulent drainage noted per ED physician. Hospital Course: 1. Severe sepsis secondary to to posterior neck abscesses and a right lower abdominal wall [id number] female who presented to the ER 1 week prior to her admission with posterior neck abscess that was drained in the ER. She presented 1 week later with ongoing drainage to the posterior neck I&D site as well as fevers chills and an abscess in the right lower abdomen. General goyo kendall was consulted and they did a bedside I&D of both the neck and the lower abdominal wall abscess. Plastic surgery then evaluated the patient and took her to the OR for further debridement of both sites. She currently has a wound VAC in her right lower abdominal, as well as her neck. Wound cultures obtained on admission are growing actinomyces as well as corynebacterium as well as coag negative staph. These are likely surface contaminants, however she has been improving on the clindamycin, therefore we will continue with p.o. Clinda 3 times a day for 1 more week. She is to continue with wound care at home and at the wound care center and to help we have also referred her to home health. Her sepsis resolved and her lactic acid was improving, she no longer has a leukocytosis and has been afebrile since admission. She wants to go home and understands that if she develops a fever or chills or has increasing drainage she is to return to the ER. She has been needing pain control periodically during her stay and was discharged with [place] 5/325 for 4 days. 2. Her other medical diagnoses were evaluated in her home medications were continued where appropriate Patient Problems: Active and Suspected Problems Sepsis (Acute) Abscess (Acute) Posterior neck and R inguinal abscesses. Objective: General: Alert, Oriented x3, Cooperative, No apparent distress HEENT: Atraumatic, EOMI, Normocephalic Oral: Moist Mucosa Neck: Supple, No JVD, Trachea Midline Lungs: Clear to auscultation, Normal air movement, No rhonchi, No wheeze, No rales Cardiovascular: Regular rate, Regular Rhythm, Normal S1, Normal S2, No murmurs Abdomen: Soft, Non Tender, Non-Distended, No Hepato-splenomegaly Extremities: No edema, Capillary Refill Less than 3 Seconds Skin: - - Dressings are intact in her right abdominal wall, and her posterior neck Neurological: Neuro grossly intact, Sensory exam intact to light touch and pain Psych/Mental Status: Normal Affect, Appropriate - Physical Exam Vital Signs Temp Pulse Resp BP Pulse Ox 97.8 F 103 H 16 82/50 L 99 05/03/18 08:09 05/03/18 10:26 05/03/18 08:09 05/03/18 10:26 05/03/18 08:09 Oxygen Flow Rate (L/min) 2 Oxygen Delivery Method Room Air Weight: 219 lb 9.286 oz Body Mass Index (BMI) 41.4 Finger Stick Blood Glucose 197 Intake and Output for Last 24 Hours 05/01/18 05/02/18 05/03/18 23:59 23:59 23:59 Intake Total 5557 / 5557 3134 / 3134 2952 / 2952 Output Total 3200 / 3200 3500 / 3500 1600 / 1600 Balance 2357 / 2357 -366 / -366 1352 / 1352 Microbiology Past 72 Hours 05/02/18 10:50 Gram Stain - Final Tissue - Abdominal Wound Culture - Preliminary No growth-Final to follow 04/30/18 10:00 Gram Stain - Final Other - Aerobic & Anaerobic Swabs Wound Culture - Final No growth aerobically. Anaerobic Culture - Final No anaerobic bacteria isolated. 04/30/18 10:00 Gram Stain - Final Abs - Groin Wound Culture - Final No growth aerobically. Anaerobic Culture - Preliminary Checking for anaerobes, further studies to follow. 05/02/18 10:50 Gram Stain - Final Tissue - Neck 04/29/18 11:45 Gram Stain - Final Wound - Neck Wound Culture - Final Corynebacterium striatum Coag Negative Staph 04/29/18 09:55 Gram Stain - Final Wound Abcess - Abdominal Wound Culture - Final Actinomyces odontolyticus Coag Negative Staph Laboratory Tests Past 24 Hrs 05/03/18 05/03/18 05:24 05:24 WBC 9.5 RBC 4.18 L Hgb 12.0 Hct 38.3 MCV 91.6 MCH 28.7 MCHC 31.3 L RDW 13.1 RDW Differential 42.6 Plt Count 227 MPV 10.5 Sodium 140 Potassium 4.2 Chloride 105 Carbon Dioxide 27.0 Anion Gap 8 BUN 12 Creatinine 0.56 Estim Creat Clear Calc 100.77 Est GFR (MDRD) Af Amer 154 Est GFR (MDRD) Non-Af 127 BUN/Creatinine Ratio 21.4 H Glucose 229 H Calcium 8.0 L Prealbumin 15.2 L POC Glucose 05/03/18 05/02/18 05/02/18 06:39 21:33 16:04 POC Glucose 223 H 235 H 218 H 05/02/18 12:03 POC Glucose 231 H Discharge Activity: May not drive while taking narcotic pain medications. Call your doctor if your incision/area has: Increased Pain/ Swelling, Increased Redness Call your doctor if you observe: Fever of 101 or Higher, Shortness of breath, Dizziness, Chest pain, Increased palpitations (irregular heartbeat) Home Medications: Medications to take at Discharge Metoprolol(XL)Succ [Toprol Xl (Beta Zelalem)] 25 mg PO DAILY 08/06/15 Amitriptyline HCl 50 mg PO QHS 07/28/17 Aspirin E.C. [Ecotrin] 81 mg PO DAILY@0800 07/28/17 Cholecalciferol (Vitamin D3) [Vitamin D3] 2,000 unit PO DAILY 07/28/17 Dicyclomine HCl [Bentyl] 20 mg PO TIDAC 07/28/17 Duloxetine Hcl [Cymbalta] 60 mg PO BID 07/28/17 Melatonin 10 mg PO QHS 07/28/17 Simvastatin [Zocor] 20 mg PO QHS 07/28/17 buPROPion SR [Wellbutrin SR (150mg tablets)] 150 mg PO BID 07/28/17 Insulin Detemir [Levemir FlexPen] 26 units SC QHS 04/29/18 Metformin HCl [Glucophage] 500 mg PO BIDCM 04/29/18 Gabapentin [Neurontin] 800 mg PO TIDCM 05/01/18 Clindamycin [Cleocin] 300 mg PO TID #42 capsule 05/03/18 Hydrocodone Bitart/Apap 5-325 [[place] 5/325] 1 - 2 tab PO Q6H PRN PRN 4 Days #15 tab 05/03/18 Following Prescrptions Were Given to Patient: Hydrocodone Bitart/Apap 5-325 [[place] 5/325] 1 - 2 tab PO Q6H PRN PRN 4 Days #15 tab PRN Reason: Moderate-severe pain Clindamycin [Cleocin] 300 mg PO TID #42 capsule Primary Care Physician: Leticia Agee MD [Primary Care Provider] - Please follow up with your Primary Care Physician in: 3-5 days Please Follow Up With: Wound care clinic When: 1 week Disposition: Home with Home Health Minutes spent on discharge:: 35 Patient Condition:: Good Medical Necessity - Tobacco Use Smoking Status: Never smoker Tobacco Use: Non-smoker Meaningful Use Info Meaningful Use Diagnoses (Choose all that apply): None applicable Code Visit Inpatient E&M: 90991 Disch Hosp
--- NOTE | 2018-05-03 12:13 | NURSING ---
Aware of low bp taken by student nurse. this nurse rechecked Vitals at this time. See intervention.
[2018-05-03 12:14] VITALS: BP 111/70; PULSE 99; RESP 18; TEMP 36.7; O2SAT 92
[2018-05-03 12:31] LABS: Bedside Glucose 242 mg/dL (70-110)
--- NOTE | 2018-05-03 12:41 | NURSING ---
Pt switched over to the home VAC. reviewed alarms, etc. with patient and . Both deny questions. Pt will have [facility]'s home health care for VAC changes.
--- NOTE | 2018-05-03 12:53 | CASEMGMT ---
Addendum entered by Lewis Gudino 05/03/18 12:56: Pt made aware [facility] able to accept her for care and start of care will be Tuesday05/05/18. Original Note: TASNEEM DUARTE NOTE: Noemi @ [facility] made aware pt is discharging today 05/03/18. She states Start of Care will be Tuesday05/05/18. Sonu SHAIKH RN CM
--- NOTE | 2018-05-03 13:28 | OP.PCM_ITS ---
Report of Operation Date of Procedure: 05/02/18 Pre-Operative Diagnosis: 1. Diabetic abscess wound left posterior neck. 2. Diabetic abscess wound right posterior neck. 3. Diabetic abscess wound right lower abdominal wall. 4. Abdominal panniculus with panniculitis. 5. Abdominal wall skin crease intertrigo. 6. Diabetes mellitus. 7. Sepsis. 8. Obesity. 9. History of MRSA. Post-Operative Diagnosis: 1. Necrotizing diabetic abscess wound left posterior neck. 2. Necrotizing diabetic abscess wound right posterior neck. 3. Necrotizing diabetic abscess wound right lower abdominal wall. 4. Abdominal panniculus with panniculitis. 5. Abdominal wall skin crease intertrigo. 6. Diabetes mellitus. 7. Sepsis. 8. Obesity. 9. History of MRSA. Surgery/Procedure Performed:: 1. Surgical preparation posterior neck with incision and drainage and excisional debridement multiple necrotizing diabetic abscess wounds (45 cm2). 2. Surgical preparation right lower abdominal wall with incision and drainage and excisional debridement skin and subcutaneous tissue for necrotizing soft tissue diabetic abscess wound (231 cm2). Description of Surgical Findings:: The patient is a 42 y/o F with a history of diabetes mellitus presented to the [facility] ED on 04/29/18 with history of recently being seen in the ED 1 week prior secondary to discomfort with abscess on her posterior neck with I+D performed at that time and was discharged to home. No culture was done at that time and no antibiotics were started at that time. She states she worsened over the following week and returned to the ED with worsening of the posterior neck absc ess with continued drainage as well as new onset additional abscesses on the posterior neck and the right lower abdominal wall. She had fever and chills. She was admitted to the hospital and started on Cleocin and Zosyn. Her WBC was 13.1 initially. Today her WBC is normal. Her Lactate was 2.7. It has since decreased to 2.3. Wound cultures show Gram positive catracho and Coag negative Staph at this time. Dr. Roman performed an I&D of these posterior neck and right lower abdominal wall abscesses at the bedside yesterday. Silver dressing changes were started. I was asked to evaluate this patient for further surgical and wound care options for treatment. Patient was informed of the risks and complications of the procedure including alternatives to surgery. These were discussed with the patient personally. Patient voices understanding and wishes to proceed. Size of defect right lower abdominal wall - 21 x 11 x 5 cm. Size of defect posterior neck - 9 x 5 x 3 cm. counselor aide: None Type of Anesthesia:: General Specimen's removed: 1. Right lower abdominal wall diabetic abscess to Pathology and Microbiology. 2. Posterior neck diabetic abscesses to Pathology and Microbiology. Drains: None. Estimated Blood Loss (mL): 50 ml. Description of Procedure: Patient was taken to OR in supine position and was placed under general anesthesia. The right lower abdominal wall was prepped and draped in the usual fashion. SCD's were placed for DVT prophylaxis. Perioperative antibiotics were given intravenously. Using a scalpel, I proceeded with incision and drainage of the diabetic abscess wound right lower abdominal wall. No gross pus was seen. A lot of induration and fat necrosis was seen with some of it liquefied. Due to this necrotizing process, wider excisional debridement was done which extended through Jinny's fascia down to the abdominal wall fascia. Some of the tissue was sent to Microbiology for culture. The rest of the tissue was sent to Pathology for analysis to rule out carcinoma. Hemostasis was obtained with electrocautery. The wound was irrigated with saline. The size of the right lower abdominal wall wound after incision and drainage and excisional debridement was 21 x 11 x 5 cm or 231 cm2. I packed the wound with Mepitel nonadherent dressing followed by Kerlix gauze with Betadine followed by dry Kerlix gauze and ABD pad compression dressing. An abdominal binder was placed. The patient was then placed in the lateral position to expose the posterior neck diabetic abscess wounds. A portion of the occipital hair was shaved in preparation for the VAC placement tomorrow. The posterior neck was prepped and draped in the usual fashion. Using a scalpel, I proceeded with incision and drainage of the diabetic abscess wounds posterior neck. No gross pus was seen. A lot of induration and fat necrosis was seen with some of it liquefied. Due to this necrotizing process, wider excisional debridement was done down to the neck musculature. Dense scarring from previous infections was seen adherent to the muscle which was excised as well. Some of the tissue was sent to Microbiology for culture. The rest of the tissue was sent to Pathology for analysis to rule out carcinoma. Hemostasis was obtained with electrocautery. The wound was irrigated with saline. The size of the posterior neck wound after incision and drainage and excisional debridement was 9 x 5 x 3 cm or 45 cm2. I packed the wound with Mepitel nonadherent dressing followed by Kerlix gauze with Betadine followed by dry Kerlix gauze and ABD pad compression dressing. Patient tolerated the procedure well and was sent to PACU in satisfactory condition. Patient will be sent upstairs for continued postop care. The VAC will be placed tomorrow. Home Health will assist with the VAC changes three times per week. She will followup at the Wound Center after discharge. If the operative cultures are positive, antibiotic modification may be necessary. If there is a plateau in the healing process, patient can proceed with delayed closure with skin grafting. Grafts/Implants Used: None. - Complications None. - Admit VTE Documentation VTE Present on Admission: No VTE Mechan Device Prophylaxis: SCD's VTE Pharm Prophylaxis ordered?: Yes Code Visit Surgery Charges CPT - 35033 ICD-10 - L02.211, S31.109A, M79.89, E11.9, A41.9, E65, M79.3, Z86.14, E66.01 09676 L02.11, S11.90xA, M79.89, E11.9, A41.9, Z86.14, E66.01 [id number] L02.11, S11.90xA, M79.89, E11.9, A41.9, Z86.14, E66.01
--- NOTE | 2018-05-03 13:42 | NURSING ---
student nurses documentation reviewed for learning documentation purposes
--- NOTE | 2018-05-03 13:51 | PCM.PN.SRG ---
Subjective: Postop #1 Patient is resting comfortably. VAC applied today. - Physical Exam General: Alert, Oriented x3 HEENT: PERRLA, EOMI Oral: Moist Mucosa Neck: Supple Abdomen: Soft, Non-Distended Skin: Ulcer/ Wound - right lower abdominal wall and posterior neck wounds are stable. No active bleeding noted. VAC applied today. Neurological: Cranial nerves II-XII grossly intact Psych/Mental Status: Normal Affect, Appropriate Vital Signs Temp Pulse Resp BP Pulse Ox 98.1 F 99 18 111/70 92 05/03/18 12:14 05/03/18 12:14 05/03/18 12:14 05/03/18 12:14 05/03/18 12:14 Oxygen Flow Rate (L/min) 2 Oxygen Delivery Method Room Air Weight: 219 lb 9.286 oz Body Mass Index (BMI) 41.4 Finger Stick Blood Glucose 197 Intake and Output for Last 24 Hours 05/01/18 05/02/18 05/03/18 23:59 23:59 23:59 Intake Total 5557 / 5557 3134 / 3134 4276 / 4276 Output Total 3200 / 3200 3500 / 3500 3400 / 3400 Balance 2357 / 2357 -366 / -366 876 / 876 Microbiology Past 72 Hours 05/02/18 10:50 Gram Stain - Final Tissue - Abdominal Wound Culture - Preliminary No growth-Final to follow 04/30/18 10:00 Gram Stain - Final Other - Aerobic & Anaerobic Swabs Wound Culture - Final No growth aerobically. Anaerobic Culture - Final No anaerobic bacteria isolated. 04/30/18 10:00 Gram Stain - Final Abs - Groin Wound Culture - Final No growth aerobically. Anaerobic Culture - Preliminary Checking for anaerobes, further studies to follow. 05/02/18 10:50 Gram Stain - Final Tissue - Neck 04/29/18 11:45 Gram Stain - Final Wound - Neck Wound Culture - Final Corynebacterium striatum Coag Negative Staph 04/29/18 09:55 Gram Stain - Final Wound Abcess - Abdominal Wound Culture - Final Actinomyces odontolyticus Coag Negative Staph Laboratory Tests Past 24 Hrs 05/03/18 05/03/18 05:24 05:24 WBC 9.5 RBC 4.18 L Hgb 12.0 Hct 38.3 MCV 91.6 MCH 28.7 MCHC 31.3 L RDW 13.1 RDW Differential 42.6 Plt Count 227 MPV 10.5 Sodium 140 Potassium 4.2 Chloride 105 Carbon Dioxide 27.0 Anion Gap 8 BUN 12 Creatinine 0.56 Estim Creat Clear Calc 100.77 Est GFR (MDRD) Af Amer 154 Est GFR (MDRD) Non-Af 127 BUN/Creatinine Ratio 21.4 H Glucose 229 H Calcium 8.0 L Prealbumin 15.2 L POC Glucose 05/03/18 05/03/18 05/02/18 11:53 06:39 21:33 POC Glucose 242 H 223 H 235 H 05/02/18 16:04 POC Glucose 218 H Medical Necessity - Tobacco Use Smoking Status: Never smoker Tobacco Use: Non-smoker Assessment/Plan All Active Problems Open wound of abdominal wall with complication (Acute) Open wound of neck with complication (Acute) Necrotizing soft tissue infection (Acute) Abscess of abdominal wall (Acute) Abscess of neck (Acute) Severe sepsis (Acute) Periapical abscess (Acute) Cellulitis and abscess of face (Acute) Periapical abscess with facial involvement (Acute) Sepsis (Acute) Abscess (Acute) UTI (urinary tract infection) (Acute) 1. Diabetic abscess wound left posterior neck. 2. Diabetic abscess wound right posterior neck. 3. Diabetic abscess wound right lower abdominal wall. 4. Abdominal panniculus with panniculitis. 5. Abdominal wall skin crease intertrigo. 6. Diabetes mellitus. 7. Sepsis. 8. Obesity. 9. History of MRSA. VAC applied today. No active bleeding noted in the right lower abdominal wall and posterior neck wounds. VAC has been approved for home. Operative culture is negative thus far. Preop cultures showed Corynebacterium striatum, Coag negative Staph, and Actinomyces odontolyticus. She will be sent home on Cleocin for 14 days. A positive culture may necessitate antibiotic modification. Anticipate increased metabolic demands from the infection and the wounds. Prealbumin was 15.2. Encourage nutritional supplementation with protein to help the healing process. She will also followup with her PCP to work on getting the HgbA1c down to a more manageable level. If there is a plateau in the healing process, can proceed with delayed closure with skin grafting. Skin grafting is elective, so the hgbA1c would have to be below 8 before proceeding with the skin graft surgery. Script for Cleocin was written. Wrote scripts for Dilaudid for SEVERE pain (60 tabs) and for Valium for spasm (30 tabs). Wrote scripts for Phenergan for nausea (30 tabs) and a refill and for Colace for constipation (60 tabs). Followup at [facility] on 05/10/18.
[2018-05-03 15:05] VITALS: BP 109/83; PULSE 95; RESP 18; O2SAT 95
[2018-05-03] MEDS: CHLORHEXIDINE GLUC 2% CLOTH 1 EACH TOWELETTE TOPICAL (15:17)
--- NOTE | 2018-05-03 15:19 | CASEMGMT ---
TASNEEM DUARTE NOTE: Pt states she is need of a heated hose and CPAP mask. States she doesn't remember the name of the company that she originally got her CPAP machine from and that she has different insurance now than she did have and is having difficulty getting in touch with someone that can assist her with these supplies. She states [employer] informed her that she needs her sleep study results and that she has tried to get them, but has been unsuccessful. Pt states Dr Cazares ordered her sleep study and that he is the one who prescribed the CPAP. Call placed to Dr Cazares's office and then Medical Records. Sleep study reports obtained and given to pt. Pt instructed to contact a local DME company to inquire about getting supplies for her CPAP. Pt has been provided with local DME companies in [employer]. Sonu SHAIKH RN CM
--- NOTE | 2018-05-04 15:44 | CASEMGMT ---
TASNEEM DUARTE Discharge Follow-up Phone Call: FILIPE: Korey Strata: 4 Call Date: 05/04/18 Discharge Date: 05/03/18 Time of Call: 1540 Duration: 3 minutes ? Admitting Diagnosis: Posterior neck and right inguinal abscesses This RN CM contacted pt's residence via phone in regard to discharge follow-up. Pt's answered and stated Suzy had just laid down and was unavailable. He stated she has been doing well since discharge. They have not had any issues with the wound vac or dressings. States her pain has been under control and he has been giving her the hydrocordone q6hrs. States pt has not had any fevers. [facility] has been in contact with them and will be out tomorrow. He is expecting a call tonight or tomorrow morning with a more precise time. States they made an appointment with her PCP Dr. Agee for follow-up. Reviewed the appointment date and time for the wound center on 05/10. Pt's denied any questions or concerns at this time. Ruddy Helm RN
== END 2018-05-03 15:36 | disposition home health service (06) | DRG 854 ==
LOC: ED 09:56 → MS3 12:25
PROVIDERS: Surgery; Admitting Provider Family Medicine; Emergency Provider Emergency Medicine; Family Provider Family Medicine; PCP Family Medicine; Visit Provider Family Medicine
PROC: 0JB80ZZ Excision of Abdomen Subcutaneous Tissue and Fascia, Open Approach (ICD-10-PCS; principal; 2018-05-02 08:50)
DX: A41.9 Sepsis, unspecified organism (principal); L02.11 Cutaneous abscess of neck; L02.211 Cutaneous abscess of abdominal wall; Z68.41 Body mass index [BMI] 40.0-44.9, adult; E78.5 Hyperlipidemia, unspecified; E66.01 Morbid (severe) obesity due to excess calories; G47.33 Obstructive sleep apnea (adult) (pediatric); I10 Essential (primary) hypertension; E11.628 Type 2 diabetes mellitus with other skin complications; M79.3 Panniculitis, unspecified; Z79.4 Long term (current) use of insulin; Z86.14 Personal history of Methicillin resistant Staphylococcus aureus infection; R65.20 Severe sepsis without septic shock
CPT/HCPCS: 36415; 70490; 71046; 72192; 80048; 82962; 83036; 83605; 83735; 84134; 85025; 85027; 85610; 85730; 87070; 87075; 87077; 87102; 87186; 87205; 87206; 87640; 88304; 88305; 93005; 94660; 97802; 97803; 99282; J7030; J7040; A4216; J2405

== ENCOUNTER 2018-05-16 16:01 | Outpatient (RCR) | payer OTHER, SELFPAY ==
[2018-05-10 10:40] VITALS: BMI 40.6
[2018-05-15 15:25] LABS: Bacteria 0 SEEN /hpf (None Seen); Mucous, Urine 0 SEEN /hpf (<or=2+); Red Blood Cells-Urine 0 SEEN /hpf (0-5)
[2018-05-15 15:52] LABS: Color, Urine Yellow (Yellow); Glucose, Dipstick Normal (Normal); Ketone-Dipstick 5 mg/dl (Negative); Leukocyte Esterase-Dipstick 100 /ul (Negative); Nitrite-Dipstick Negative (Negative); Occult Blood-Urine Negative /ul (Negative); Protein-Dipstick Negative (Negative); Specific Gravity, Urine 1.015 (1.002-1.030); Urine Bilirubin Dipstick Negative (Negative); Urine Clarity Sl. Cloudy (Clear); Urine Urobilinogen Normal (Normal)
[2018-05-15 16:13] LABS: Squamous Epithelial Cells - UA 0-5 SEEN /hpf (5-10); White Blood Cells 0-5 SEEN /hpf (0-5)
[2018-05-16 16:15] LABS: Hematocrit 42.9 % (37-47); Hemoglobin 13.6 g/dl (12.0-15.0); Mean Corp Hgb Conc 31.7 g/gl (32-36); Mean Corpuscular Hgb 28.2 pg (27.0-32.0); Mean Platelet Vol. 11.1 fl (6.2-12.0); Platelet Count 353 K/mm3 (150-450); RBC Distribution Width SD 42.3 fl (35.1-43.9); Red Blood Count 4.82 M/mm3 (4.2-5.4); White Blood Count 11.2 K/mm3 (4.4-11.0)
[2018-05-16 16:17] LABS: Scan Indicated on CBC? Y/N NO
[2018-05-16 16:28] LABS: Anion Gap 11 (5-15); BUN 16 mg/dL (7-18); BUN/Creat Ratio 24.4 RATIO (10-20); Calcium,Total 9.1 mg/dL (8.5-10.1); Chloride 96 mmol/L (98-107); Creatinine, Serum 0.66 mg/dL (0.55-1.02); EST Glomerular Filtration Rate 106 mL/min (>60); Est Glom Filt Rate - Afr Amer 128 mL/min (>60); Glucose 202 mg/dL (74-106); Potassium 4.5 mmol/L (3.5-5.1); Sodium Level 134 mmol/L (136-145)
== END 2018-05-25 23:59 ==
LOC: HHLAB 16:01
PROVIDERS: Family Provider Family Medicine; PCP Family Medicine; Referring Provider Family Medicine; Visit Provider Family Medicine
DX: R30.0 Dysuria (principal)
CPT/HCPCS: 80048; 81001; 85027; 87086

== ENCOUNTER 2018-05-23 14:45 | Outpatient (RCR) | payer OTHER, SELFPAY ==
[2018-05-02 05:42] VITALS: BMI 41.4
[2018-05-10 10:40] VITALS: BP 101/77; PULSE 130; RESP 20; TEMP 36.8; BMI 40.6
--- NOTE | 2018-05-10 12:04 | HP.PCM_ITS ---
(1) Nonhealing surgical wound Status: Acute Current Visit: Yes Code(s): T81.89XA - Other complications of procedures, not elsewhere classified, initial encounter (2) Type 2 diabetes mellitus Status: Chronic Current Visit: Yes Qualifiers: Code(s): E11.9 - Type 2 diabetes mellitus without complications History of Present Illness Chief Complaint: Follow-up surgical wound and VAC management. History of Wound: Ms. Degroot is a 42-year-old status post recent hospital admission for surgical debridement of neck and abdominal abscess/panniculitis respectively. She currently has a wound VAC at 150 mmHg which she has not tolerated reasonably well. She has noted some pain especially in her abdominal area. She feels well otherwise and denies chills, fever or feeling of unwell. Past Medical History Past Medical History: Chronic Problems Panniculitis (Chronic) Abdominal panniculus, symptomatic (Chronic) HTN (hypertension) (Chronic) Hyperlipidemia (Chronic) Morbid obesity due to excess calories (Chronic) History of MRSA infection (Chronic) Type 2 diabetes mellitus (Chronic) Surgical History: - - Multiple I&D secondary to abscesses including bilateral axilla hidradenitis interventions with resections, cholecystectomy, total hysterectomy, D&C x2 secondary to miscarriages x2. Allergies/Adverse Reactions: Allergies pregabalin [From Lyrica] Allergy (Verified 05/10/18 11:20) Other SI sulfamethoxazole [From Bactrim] Allergy (Verified 05/10/18 11:20) Rash tramadol HCl [From Ultram] Allergy (Verified 05/10/18 11:20) Swelling trimethoprim [From Bactrim] Allergy (Verified 05/10/18 11:20) Rash vancomycin Allergy (Verified 05/10/18 11:20) Swelling Home Medications: Ambulatory Orders Medication Instructions Recorded Metoprolol(XL)Succ [Toprol Xl 25 mg PO DAILY 08/06/15 (Beta Zelalem)] Amitriptyline HCl 50 mg PO QHS 07/28/17 Aspirin E.C. [Ecotrin] 81 mg PO DAILY@0800 07/28/17 Cholecalciferol (Vitamin D3) 2,000 unit PO DAILY 07/28/17 [Vitamin D3] Dicyclomine HCl [Bentyl] 20 mg PO TIDAC 07/28/17 Duloxetine Hcl [Cymbalta] 60 mg PO BID 07/28/17 Melatonin 10 mg PO QHS 07/28/17 Simvastatin [Zocor] 20 mg PO QHS 07/28/17 buPROPion SR [Wellbutrin SR (150mg 150 mg PO BID 07/28/17 tablets)] Insulin Detemir [Levemir FlexPen] 34 units SC QHS 04/29/18 Metformin HCl [Glucophage] 1,000 mg PO BIDCM 04/29/18 Gabapentin [Neurontin] 800 mg PO TIDCM 05/01/18 Diazepam [Valium] 5 mg PO 4X/DAY PRN PRN #30 tab 05/03/18 Docusate Sodium [Colace] 100 mg PO BID #60 cap 05/03/18 proMETHazine tablet [Phenergan 25 mg PO 4X/DAY PRN PRN #30 tab 05/03/18 tablet] levofloxacin 500 mg tablet 500 mg PO DAILY #21 tab 05/07/18 - Family History Maternal - - Patient notes a maternal family history of brain cancer. Paternal - - Patient notes her father was very healthy only medical issue had been reflux. Smoking Status: Never smoker Review of Systems Constitutional: Denies: Anorexia, Chills, Fever Eyes: Denies: Pain, Redness HEENT: Denies: Difficulty Hearing, Difficulty Swallowing Cardiovascular: Denies: Chest Pain, Chest Tightness Respiratory: Denies: Hemoptysis Gastrointestinal: Reports: Abdominal Pain. Denies: Hematemesis, Vomiting Genitourinary: Denies: Hematuria Skin: Denies: Jaundice - Physical Exam Vital Signs Temp Pulse Resp BP 98.2 F 130 H 20 H 101/77 05/10/18 10:40 05/10/18 10:40 05/10/18 10:40 05/10/18 10:40 General: Alert, Oriented x3, Cooperative, No apparent distress HEENT: Atraumatic, Normocephalic Oral: Moist Mucosa Neck: Supple Lungs: Normal air movement Abdomen: Soft, Obese, Tender Extremities: No cyanosis Skin: Ulcer/ Wound Wound Measurements and Assessment WC - Nurse 1 - General Ulcer Measurement Start: 05/10/18 09:42 Freq: Status: Active Protocol: Activity Type Activity Date Activity User E-Sign Co-Sign Detail Recorded Client Recorded Date Recorded By Document 05/10/18 10:40 AN [email or web address] 05/10/18 11:00 AN 05/10/18 10:40 Wound Center Nurse 1 [Ulcer Assessment] #2 posterior neck -Current Size (cm) - Length 4.5 -Current Size (cm) - Width 10 -Current Size (cm) - Depth 3.5 -Total Square Cm 45.0 -Date of Last Picture (Recall this 05/10/18 field) -Photo Taken Yes -Epithelialization None Present -Tunneling No -Undermining/Tunneling No -Circular Undermining No -Exudate Amt Medium -Exudate Type Sanguineous -Wound Margin Flat & Intact -Granulation Amt Medium (34-66%) -Granulation Quality Red -Slough/Fibrin Yes -Necrosis Amt Medium (34-66%) -Necrotic Tissue Type Adherent Slough -Texture (Yumiko-wound Skin Appearance) Assessed -Moisture (Yumiko-wound Skin Appearance Assessed ) -Color (Yumiko-wound Skin Appearance) Assessed -Temperature (Yumiko-wound Skin No Abnormality Appearance) (Pt Warm) -Tenderness on Palpation (Yumiko-wound Yes Skin Appearance) -Ulcer Cleansing Wound Cleanser -Foul Odor after Cleansing No -Anesthetic Used 4% Lidocaine Solution #1abdomen -Current Size (cm) - Length 24.5 -Current Size (cm) - Width 3.0 -Current Size (cm) - Depth 2.3 -Total Square Cm 73.50 -Date of Last Picture (Recall this 05/10/18 field) -Photo Taken Yes -Epithelialization None Present -Circular Undermining No -Classification - Thickness Full Thickness without Exposed Support Structure -Exudate Amt Large -Exudate Type Serosanguineous -Wound Margin Distinct, Outline Attached -Granulation Amt Large (67-100%) -Granulation Quality Red -Slough/Fibrin Yes -Necrosis Amt Small (1-33%) -Necrotic Tissue Type Adherent Slough -Structure Exposed Fat Layer Exposed -Texture (Yumiko-wound Skin Appearance) Assessed Localized Edema -Moisture (Yumiko-wound Skin Appearance Assessed ) -Color (Yumiko-wound Skin Appearance) No Abnormality Erythema -Temperature (Yumiko-wound Skin No Abnormality Appearance) (Pt Warm) -Tenderness on Palpation (Yumiko-wound Yes Skin Appearance) -Ulcer Cleansing Rinsed/ Irrigated with Saline -Foul Odor after Cleansing No -Anesthetic Used 4% Lidocaine Solution 5% Lidocaine Gel WC - Nurse 2 - General Ulcer CM Notes Start: 05/10/18 09:42 Freq: Status: Active Protocol: Activity Type Activity Date Activity User E-Sign Co-Sign Detail Recorded Client Recorded Date Recorded By Document 05/10/18 11:09 MW [email or web address] 05/10/18 11:21 MW 05/10/18 11:09 Wound Center Nurse 2 [Procedure/Treatment] #2 posterior neck -Time 11:11 -Correct Patient Yes -Correct Side, Site, Position Yes -Correct Procedure Yes -Procedure Performed Yes -Type of Procedure Debridement -Clinical Debridement Subcutaneous -Post Debridement Size (cm) - Length 5.0 -Post Debridement Size (cm) - Width 13.6 -Post Debridement Size (cm) - Depth 2.5 -Total Square Cm 68.00 -Wound/Ulcer Outcome Not Healed -Ulcer Cleansing Rinsed/ Irrigated with Saline -Foul Odor after Cleansing No -Bioengineered Tissue No -Bleeding Controlled with Pressure -Offloading Yes -Treatment Response Procedure Tolerated Well #1abdomen -Time 11:11 -Correct Patient Yes -Correct Side, Site, Position Yes -Correct Procedure Yes -Procedure Performed Yes -Type of Procedure Debridement -Clinical Debridement Subcutaneous -Post Debridement Size (cm) - Length 2.5 -Post Debridement Size (cm) - Width 25.0 -Post Debridement Size (cm) - Depth 3.6 -Total Square Cm 62.50 -Wound/Ulcer Outcome Not Healed -Ulcer Cleansing Rinsed/ Irrigated with Saline -Foul Odor after Cleansing No -Bioengineered Tissue No -Bleeding Controlled with Pressure -Offloading No -Treatment Response Procedure Tolerated Well [See Physician Procedure note for Specifics] Pain Scale: 0-10 Numeric [Pain] -Is Patient Pain Free? No Musculoskeletal: No Muscle Wasting Neurological: Cranial nerves II-XII grossly intact Psych/Mental Status: Normal Affect Debridement Note Post-Debridement Measurements/Treatment WC - Nurse 2 - General Ulcer CM Notes Start: 05/10/18 09:42 Freq: Status: Active Protocol: Activity Type Activity Date Activity User E-Sign Co-Sign Detail Recorded Client Recorded Date Recorded By Document 05/10/18 11:09 MW [id number] 05/10/18 11:21 MW 05/10/18 11:09 Wound Center Nurse 2 #2 posterior neck -Time 11:11 -Correct Patient Yes -Correct Side, Site, Position Yes -Correct Procedure Yes -Procedure Performed Yes -Type of Procedure Debridement -Clinical Debridement Subcutaneous -Post Debridement Size (cm) - Length 5.0 -Post Debridement Size (cm) - Width 13.6 -Post Debridement Size (cm) - Depth 2.5 -Total Square Cm 68.00 -Wound/Ulcer Outcome Not Healed -Ulcer Cleansing Rinsed/ Irrigated with Saline -Foul Odor after Cleansing No -Bioengineered Tissue No -Bleeding Controlled with Pressure -Offloading Yes -Treatment Response Procedure Tolerated Well #1abdomen -Time 11:11 -Correct Patient Yes -Correct Side, Site, Position Yes -Correct Procedure Yes -Procedure Performed Yes -Type of Procedure Debridement -Clinical Debridement Subcutaneous -Post Debridement Size (cm) - Length 2.5 -Post Debridement Size (cm) - Width 25.0 -Post Debridement Size (cm) - Depth 3.6 -Total Square Cm 62.50 -Wound/Ulcer Outcome Not Healed -Ulcer Cleansing Rinsed/ Irrigated with Saline -Foul Odor after Cleansing No -Bioengineered Tissue No -Bleeding Controlled with Pressure -Offloading No -Treatment Response Procedure Tolerated Well Pain Scale: 0-10 Numeric Is Patient Pain Free? No Wound debrided: Posterior neck Wound Grade/Stage: Stage III Type of Debridement: Excisional debridement Anesthesia Used: 4% Lidocaine Solution, 5% Lidocaine Gel Depth: Down to and including healthy tissue, in the subcutaneous layer Percentage of wound debrided: 100 Instrument Used: 5mm curette Tissue Removed: Slough and devitalized tissue Severity: Fat Layer Exposed Amount of bleeding with debridement: Mild Bleeding Controlled with: Pressure Patient tolerated procedure well - Additional Wound Wound debrided: Lower abdominal Wound Grade/Stage: Stage III Type of Debridement: Excisional debridement Anesthesia Used: 4% Lidocaine Solution, 5% Lidocaine Gel Depth: Down to and including healthy tissue, in the subcutaneous layer Percentage of wound debrided: 100 Instrument Used: 5mm curette Tissue Removed: Slough and devitalized tissue Severity: Fat Layer Exposed Amount of bleeding with debridement: Mild Bleeding Controlled with: Pressure Patient tolerated procedure: Patient tolerated procedure well Assessment/Plan Active Problems Nonhealing surgical wound (Acute) Type 2 diabetes mellitus (Chronic) Assessment: Same as above. Plan: Debridement of both wounds done as documented above. Procedure was well- tolerated. However patient with significant tenderness on removing foam during initial evaluation. She also states that she has experienced significant tenderness at home during changes. As stated in the HPI, significant lower abdominal pain with the VAC also reported. Please Adaptic over the wound surface prior to foam placement. Reduce VAC pressure to 125 mmHg. Hopefully she is better tolerant. Follow-up with Dr. Stafford/ Reanna Rivas NP next week. Continue other wound care management as previously discussed. Increased protein intake recommended. Optimal blood sugar control also recommended. Advised to call with any questions or concerns. This note was generated with [employer] software. It may contain incorrect words, spelling, and punctuation that were not noted in checking the note before signing.
[2018-05-16 14:53] VITALS: BP 120/84; PULSE 125; RESP 18; TEMP 36.6; BMI 40.6
--- NOTE | 2018-05-16 17:20 | PN.PCM_ITS ---
(1) Nonhealing surgical wound Status: Acute Current Visit: Yes Code(s): T81.89XA - Other complications of procedures, not elsewhere classified, initial encounter (2) Open wound of abdominal wall with complication Status: Acute Current Visit: Yes Code(s): S31.109A - Unspecified open wound of abdominal wall, unspecified quadrant without penetration into peritoneal cavity, initial encounter Comment: diabetic abscess wound right lower abdominal wall (3) Open wound of neck with complication Status: Acute Current Visit: Yes Code(s): S11.90XA - Unspecified open wound of unspecified part of neck, initial encounter Comment: diabetic abscess wound right posterior neck diabetic abscess wound left posterior neck (4) Panniculitis Status: Chronic Current Visit: No Code(s): M79.3 - Panniculitis, unspecified (5) Type 2 diabetes mellitus Status: Chronic Current Visit: Yes Qualifiers: Code(s): E11.9 - Type 2 diabetes mellitus without complications (6) Obesity Status: Chronic Current Visit: Yes Code(s): E66.9 - Obesity, unspecified Type of Wound Date of Service: 05/16/18 Chief Complaint: Follow-up surgical wound and VAC management. History of Wound: On 05/02/18 patient under went a surgical preparation posterior neck with incision and drainage and excisional debridement multiple necrotizing diabetic abscess wounds (45 cm2) and a surgical preparation right lower abdominal wall with incision and drainage and excisional debridement skin and subcutaneous tissue for necrotizing soft tissue diabetic abscess wound (231 cm2). She currently has a wound VAC at 150 mmHg which she was not tolerating well until they started to use adaptic on the wounds then the black foam. She states that her pain has decreased since using the adaptic. She feels denies fever, chills and states her appetite is well. Progress of Wound: Wounds are clean and beefy red. - Physical Exam Vital Signs Temp Pulse Resp BP 97.8 F 125 H 18 120/84 H 05/16/18 14:53 05/16/18 14:53 05/16/18 14:53 05/16/18 14:53 General: Alert, Oriented x3, Cooperative HEENT: Atraumatic Oral: Moist Mucosa Lungs: Normal air movement Cardiovascular: Regular rate Extremities: No edema, Capillary Refill Less than 3 Seconds Skin: Ulcer/ Wound - Wound to posterior neck and lower abdomen Wound Measurements and Assessment WC - Nurse 1 - General Ulcer Measurement Start: 05/10/18 09:42 Freq: Status: Active Protocol: Activity Type Activity Date Activity User E-Sign Co-Sign Detail Recorded Client Recorded Date Recorded By Document 05/16/18 14:53 AN [id number] 05/16/18 15:42 AN 05/16/18 14:53 Wound Center Nurse 1 [Ulcer Assessment] #2 posterior neck -Current Size (cm) - Length 10.2 -Current Size (cm) - Width 3.7 -Current Size (cm) - Depth 2.8 -Total Square Cm 37.74 -Photo Taken No -Epithelialization None Present -Tunneling No -Undermining/Tunneling No -Circular Undermining No -Classification - Thickness Full Thickness without Exposed Support Structure -Exudate Amt Large -Exudate Type Yellow/Green -Wound Margin Distinct, Outline Attached -Granulation Amt Large (67-100%) -Granulation Quality Red -Slough/Fibrin Yes -Necrosis Amt Small (1-33%) -Necrotic Tissue Type Adherent Slough -Structure Exposed None/Limited to Skin Breakdown -Texture (Yumiko-wound Skin Appearance) Assessed Localized Edema -Moisture (Yumiko-wound Skin Appearance Assessed ) -Color (Yumiko-wound Skin Appearance) Assessed Erythema -Temperature (Yumiko-wound Skin No Abnormality Appearance) (Pt Warm) -Tenderness on Palpation (Yumiko-wound Yes Skin Appearance) -Ulcer Cleansing Rinsed/ Irrigated with Saline -Foul Odor after Cleansing No -Anesthetic Used 4% Lidocaine Solution #1abdomen -Current Size (cm) - Length 25 -Current Size (cm) - Width 2.2 -Current Size (cm) - Depth 2.7 -Total Square Cm 55.0 -Tunneling No -Undermining/Tunneling No -Classification - Thickness Full Thickness without Exposed Support Structure -Exudate Amt Large -Exudate Type Yellow/Green -Wound Margin Distinct, Outline Attached -Granulation Amt Large (67-100%) -Granulation Quality Red -Slough/Fibrin Yes -Necrosis Amt Small (1-33%) -Necrotic Tissue Type Eschar -Structure Exposed None/Limited to Skin Breakdown -Texture (Yumiko-wound Skin Appearance) Assessed Localized Edema -Moisture (Yumiko-wound Skin Appearance Assessed ) -Color (Yumiko-wound Skin Appearance) Assessed Erythema -Temperature (Yumiko-wound Skin No Abnormality Appearance) (Pt Warm) -Tenderness on Palpation (Yumiko-wound Yes Skin Appearance) -Ulcer Cleansing Rinsed/ Irrigated with Saline -Foul Odor after Cleansing Yes -Anesthetic Used 4% Lidocaine Solution RENZO - Nurse 2 - General Ulcer CM Notes Start: 05/10/18 09:42 Freq: Status: Active Protocol: Activity Type Activity Date Activity User E-Sign Co-Sign Detail Recorded Client Recorded Date Recorded By Document 05/16/18 16:09 JF [id number] 05/16/18 16:18 JF 05/16/18 16:09 Wound Center Nurse 2 [Procedure/Treatment] #2 posterior neck -Time 16:10 -Correct Patient Yes -Correct Side, Site, Position Yes -Correct Procedure Yes -Procedure Performed Yes -Type of Procedure Debridement -Clinical Debridement Subcutaneous -Post Debridement Size (cm) - Length 3.0 -Post Debridement Size (cm) - Width 10.8 -Post Debridement Size (cm) - Depth 1.5 -Total Square Cm 32.40 -Wound/Ulcer Outcome Not Healed -Ulcer Cleansing Rinsed/ Irrigated with Saline -Foul Odor after Cleansing No -Bioengineered Tissue No -Bleeding Controlled with Pressure -Offloading No -Treatment Response Procedure Tolerated Well #1abdomen -Time 16:09 -Correct Patient Yes -Correct Side, Site, Position Yes -Correct Procedure Yes -Procedure Performed Yes -Type of Procedure Debridement -Clinical Debridement Subcutaneous -Post Debridement Size (cm) - Length 3.5 -Post Debridement Size (cm) - Width 24.0 -Post Debridement Size (cm) - Depth 2.0 -Total Square Cm 84.00 -Wound/Ulcer Outcome Not Healed -Ulcer Cleansing Rinsed/ Irrigated with Saline -Foul Odor after Cleansing No -Bioengineered Tissue No -Bleeding Controlled with Pressure -Other tunnel--1.5cm -Offloading No -Treatment Response Procedure Tolerated Well [See Physician Procedure note for Specifics] Pain Scale: 0-10 Numeric [Pain] -Is Patient Pain Free? Yes Musculoskeletal: No Tenderness to Palpation of Joints or Extremities Neurological: Neuro grossly intact Psych/Mental Status: Normal Affect, Appropriate Debridement Note Post-Debridement Measurements/Treatment RENZO - Nurse 2 - General Ulcer CM Notes Start: 05/10/18 09:42 Freq: Status: Active Protocol: Activity Type Activity Date Activity User E-Sign Co-Sign Detail Recorded Client Recorded Date Recorded By Document 05/10/18 11:09 MW [id number] 05/10/18 11:21 MW Document 05/16/18 16:09 [id number] 05/16/18 16:18 05/10/18 05/16/18 11:09 16:09 Wound Center Nurse 2 #2 posterior neck -Time 11:11 16:10 -Correct Patient Yes Yes -Correct Side, Site, Position Yes Yes -Correct Procedure Yes Yes -Procedure Performed Yes Yes -Type of Procedure Debridement Debridement -Clinical Debridement Subcutaneous Subcutaneous -Post Debridement Size (cm) - Length 5.0 3.0 -Post Debridement Size (cm) - Width 13.6 10.8 -Post Debridement Size (cm) - Depth 2.5 1.5 -Total Square Cm 68.00 32.40 -Wound/Ulcer Outcome Not Healed Not Healed -Ulcer Cleansing Rinsed/ Rinsed/ Irrigated with Irrigated with Saline Saline -Foul Odor after Cleansing No No -Bioengineered Tissue No No -Bleeding Controlled with Pressure Pressure -Offloading Yes No -Treatment Response Procedure Procedure Tolerated Well Tolerated Well #1abdomen -Time 11:11 16:09 -Correct Patient Yes Yes -Correct Side, Site, Position Yes Yes -Correct Procedure Yes Yes -Procedure Performed Yes Yes -Type of Procedure Debridement Debridement -Clinical Debridement Subcutaneous Subcutaneous -Post Debridement Size (cm) - Length 2.5 3.5 -Post Debridement Size (cm) - Width 25.0 24.0 -Post Debridement Size (cm) - Depth 3.6 2.0 -Total Square Cm 62.50 84.00 -Wound/Ulcer Outcome Not Healed Not Healed -Ulcer Cleansing Rinsed/ Rinsed/ Irrigated with Irrigated with Saline Saline -Foul Odor after Cleansing No No -Bioengineered Tissue No No -Bleeding Controlled with Pressure Pressure -Other tunnel--1.5cm -Offloading No No -Treatment Response Procedure Procedure Tolerated Well Tolerated Well Pain Scale: 0-10 Numeric Is Patient Pain Free? No Yes Wound debrided: Posterior neck Type of Debridement: Excisional debridement Anesthesia Used: 4% Lidocaine Solution Depth: Down to and including healthy tissue, in the subcutaneous layer, to muscle Percentage of wound debrided: 100 Instrument Used: 5mm curette Tissue Removed: Subcutaneous tissue and slough Severity: Fat Layer Exposed Amount of bleeding with debridement: Mild Bleeding Controlled with: Compression and gauze Patient tolerated procedure well - Additional Wound Wound debrided: Lower abdominal Type of Debridement: Excisional debridement Anesthesia Used: 4% Lidocaine Solution Depth: Down to and including healthy tissue, in the subcutaneous layer, to muscle Percentage of wound debrided: 100 Instrument Used: 5mm curette Tissue Removed: Subcutaneous tissue and slough Severity: Fat Layer Exposed Amount of bleeding with debridement: Mild Bleeding Controlled with: Compression and gauze Patient tolerated procedure: Patient tolerated procedure well Assessment/Plan Active Problems Nonhealing surgical wound (Acute) Obesity (Chronic) Open wound of abdominal wall with complication (Acute) diabetic abscess wound right lower abdominal wall Open wound of neck with complication (Acute) diabetic abscess wound right posterior neck diabetic abscess wound left posterior neck Type 2 diabetes mellitus (Chronic) Assessment: 1. Nonhealing surgical wound. 2. Open wound of abdominal wall with complication. 3. Open wound of neck with complication. 4. Type 2 diabetes mellitus. 5. Obesity Plan: Debridement of both wounds done as documented above. Procedure was well- tolerated. Will continue adaptic under black foam of the wound VAC for another week. She is drinking Glucerna for extra protein. She has had some changes in her insulin and her blood sugar this morning was in the 90's. She is trying to keep her blood sugars undercontrol. Her wound cultures Pre op grew Corynebacterium striatum and Actinimyces odontolyticus and Anaerobic cocci. Operative cultures from 05/02/18 Neck showed Staphylococcus epidermidis and abdomen showed now organisms. She is to continue her Clindamycin. Her Pre- albumin was 15.2 from 05/02/18. Encouraged her to continue her high protein diet and to continue controlling her blood sugars. She is to follow up in one week. She is to call with any concerns. Code Visit [id number]
[2018-05-23 15:15] VITALS: BP 108/57; PULSE 133; RESP 18; TEMP 36.8; BMI 40.6
--- NOTE | 2018-05-23 16:23 | PN.PCM_ITS ---
(1) Nonhealing surgical wound Status: Acute Current Visit: Yes Code(s): T81.89XA - Other complications of procedures, not elsewhere classified, initial encounter (2) Open wound of abdominal wall with complication Status: Acute Current Visit: Yes Code(s): S31.109A - Unspecified open wound of abdominal wall, unspecified quadrant without penetration into peritoneal cavity, initial encounter Comment: diabetic abscess wound right lower abdominal wall (3) Open wound of neck with complication Status: Acute Current Visit: Yes Code(s): S11.90XA - Unspecified open wound of unspecified part of neck, initial encounter Comment: diabetic abscess wound right posterior neck diabetic abscess wound left posterior neck (4) Panniculitis Status: Chronic Current Visit: No Code(s): M79.3 - Panniculitis, unspecified (5) Type 2 diabetes mellitus Status: Chronic Current Visit: Yes Qualifiers: Code(s): E11.9 - Type 2 diabetes mellitus without complications (6) Obesity Status: Chronic Current Visit: Yes Code(s): E66.9 - Obesity, unspecified Type of Wound Date of Service: 05/23/18 Chief Complaint: Follow-up surgical wound and VAC management. History of Wound: On 05/02/18 patient under went a surgical preparation posterior neck with incision and drainage and excisional debridement multiple necrotizing diabetic abscess wounds (45 cm2) and a surgical preparation right lower abdominal wall with incision and drainage and excisional debridement skin and subcutaneous tissue for necrotizing soft tissue diabetic abscess wound (231 cm2). She currently has a wound VAC at 150 mmHg which she was not tolerating well until they started to use adaptic on the wounds then the black foam. This week she states that her pain has increased and she is not getting any relief from her pain medications. We will do a VAC holiday this week to see if this will help with her pain. She will apply a silver alginate dressing daily to her opened wounds. I will discuss her pain issues with Dr. Stafford who is prescribing her pain medications. She feels denies fever, chills and states her appetite is well. She has been drinking glucerna daily. Progress of Wound: Wounds are clean and beefy red and improving. - Physical Exam Vital Signs Temp Pulse Resp BP 98.2 F 133 H 18 108/57 L 05/23/18 15:15 05/23/18 15:15 05/23/18 15:15 05/23/18 15:15 General: Alert, Oriented x3, Cooperative HEENT: Atraumatic Oral: Moist Mucosa Lungs: Normal air movement Cardiovascular: Regular rate Extremities: No edema, Capillary Refill Less than 3 Seconds, No Calf Tenderness, Peripheral Pulses Normal Skin: Ulcer/ Wound - Posterior neck wound and lower abdominal wound, both improving. Wound Measurements and Assessment WC - Nurse 1 - General Ulcer Measurement Start: 05/10/18 09:42 Freq: Status: Active Protocol: Activity Type Activity Date Activity User E-Sign Co-Sign Detail Recorded Client Recorded Date Recorded By Document 05/23/18 15:15 AN [id number] 05/23/18 15:28 AN 05/23/18 15:15 Wound Center Nurse 1 [Ulcer Assessment] #2 posterior neck -Current Size (cm) - Length 4.7 -Current Size (cm) - Width 11 -Current Size (cm) - Depth 1.5 -Total Square Cm 51.7 -Photo Taken No -Epithelialization None Present -Tunneling No -Undermining/Tunneling No -Circular Undermining No -Classification - Thickness Full Thickness without Exposed Support Structure -Exudate Amt Medium -Exudate Type Serosanguineous -Wound Margin Distinct, Outline Attached -Granulation Amt Large (67-100%) -Granulation Quality Red -Slough/Fibrin Yes -Necrosis Amt Small (1-33%) -Necrotic Tissue Type Adherent Slough -Structure Exposed Fascia None/Limited to Skin Breakdown -Texture (Fela-wound Skin Appearance) Assessed Scarring -Moisture (Fela-wound Skin Appearance Assessed ) -Color (Fela-wound Skin Appearance) Assessed -Temperature (Fela-wound Skin No Abnormality Appearance) (Pt Warm) -Tenderness on Palpation (Fela-wound Yes Skin Appearance) -Ulcer Cleansing soap and water -Foul Odor after Cleansing No -Anesthetic Used 4% Lidocaine Solution #1abdomen -Current Size (cm) - Length 3.5 -Current Size (cm) - Width 23.5 -Current Size (cm) - Depth 1.5 -Total Square Cm 82.25 -Photo Taken No -Epithelialization None Present -Tunneling No -Undermining/Tunneling No -Circular Undermining No -Classification - Thickness Full Thickness without Exposed Support Structure -Exudate Amt Medium -Exudate Type Serosanguineous -Wound Margin Distinct, Outline Attached -Granulation Amt Large (67-100%) -Granulation Quality Red -Slough/Fibrin Yes -Necrosis Amt Small (1-33%) -Necrotic Tissue Type Eschar -Structure Exposed Fascia None/Limited to Skin Breakdown -Texture (Fela-wound Skin Appearance) Assessed Localized Edema Scarring -Moisture (Fela-wound Skin Appearance Assessed ) -Color (Fela-wound Skin Appearance) Assessed Erythema -Temperature (Fela-wound Skin No Abnormality Appearance) (Pt Warm) -Tenderness on Palpation (Fela-wound Yes Skin Appearance) -Ulcer Cleansing soap and water -Foul Odor after Cleansing Yes -Anesthetic Used 4% Lidocaine Solution WC - Nurse 2 - General Ulcer CM Notes Start: 05/10/18 09:42 Freq: Status: Active Protocol: Activity Type Activity Date Activity User E-Sign Co-Sign Detail Recorded Client Recorded Date Recorded By Document 05/23/18 15:49 [id number] 05/23/18 15:53 05/23/18 15:49 Wound Center Nurse 2 [Procedure/Treatment] #2 posterior neck -Time 15:49 -Correct Patient Yes -Correct Side, Site, Position Yes -Correct Procedure Yes -Procedure Performed Yes -Type of Procedure Debridement -Clinical Debridement Subcutaneous -Post Debridement Size (cm) - Length 4.7 -Post Debridement Size (cm) - Width 9 -Post Debridement Size (cm) - Depth 1.4 -Total Square Cm 42.3 -Wound/Ulcer Outcome Not Healed -Ulcer Cleansing Rinsed/ Irrigated with Saline -Foul Odor after Cleansing No -Bioengineered Tissue No -Bleeding Controlled with Pressure -Offloading No -Treatment Response Procedure Tolerated Well #1abdomen -Time 15:49 -Correct Patient Yes -Correct Side, Site, Position Yes -Correct Procedure Yes -Procedure Performed Yes -Type of Procedure Debridement -Clinical Debridement Subcutaneous -Post Debridement Size (cm) - Length 3.0 -Post Debridement Size (cm) - Width 23.2 -Post Debridement Size (cm) - Depth 1.8 -Total Square Cm 69.60 -Wound/Ulcer Outcome Not Healed -Ulcer Cleansing Rinsed/ Irrigated with Saline -Foul Odor after Cleansing No -Bioengineered Tissue No -Bleeding Controlled with Pressure -Offloading No -Treatment Response Procedure Tolerated Well [See Physician Procedure note for Specifics] Pain Scale: 0-10 Numeric [Pain] -Is Patient Pain Free? Yes Musculoskeletal: No Tenderness to Palpation of Joints or Extremities Neurological: Neuro grossly intact Psych/Mental Status: Normal Affect, Appropriate Debridement Note Post-Debridement Measurements/Treatment WC - Nurse 2 - General Ulcer CM Notes Start: 05/10/18 09:42 Freq: Status: Active Protocol: Activity Type Activity Date Activity User E-Sign Co-Sign Detail Recorded Client Recorded Date Recorded By Document 05/10/18 11:09 MW [id number] 05/10/18 11:21 MW Document 05/16/18 16:09 JF [id number] 05/16/18 16:18 JF Document 05/23/18 15:49 [id number] 05/23/18 15:53 05/10/18 05/16/18 05/23/18 11:09 16:09 15:49 Wound Center Nurse 2 #2 posterior neck -Time 11:11 16:10 15:49 -Correct Patient Yes Yes Yes -Correct Side, Site, Position Yes Yes Yes -Correct Procedure Yes Yes Yes -Procedure Performed Yes Yes Yes -Type of Procedure Debridement Debridement Debridement -Clinical Debridement Subcutaneous Subcutaneous Subcutaneous -Post Debridement Size (cm) - Length 5.0 3.0 4.7 -Post Debridement Size (cm) - Width 13.6 10.8 9 -Post Debridement Size (cm) - Depth 2.5 1.5 1.4 -Total Square Cm 68.00 32.40 42.3 -Wound/Ulcer Outcome Not Healed Not Healed Not Healed -Ulcer Cleansing Rinsed/ Rinsed/ Rinsed/ Irrigated with Irrigated with Irrigated with Saline Saline Saline -Foul Odor after Cleansing No No No -Bioengineered Tissue No No No -Bleeding Controlled with Pressure Pressure Pressure -Offloading Yes No No -Treatment Response Procedure Procedure Procedure Tolerated Well Tolerated Well Tolerated Well #1abdomen -Time 11:11 16:09 15:49 -Correct Patient Yes Yes Yes -Correct Side, Site, Position Yes Yes Yes -Correct Procedure Yes Yes Yes -Procedure Performed Yes Yes Yes -Type of Procedure Debridement Debridement Debridement -Clinical Debridement Subcutaneous Subcutaneous Subcutaneous -Post Debridement Size (cm) - Length 2.5 3.5 3.0 -Post Debridement Size (cm) - Width 25.0 24.0 23.2 -Post Debridement Size (cm) - Depth 3.6 2.0 1.8 -Total Square Cm 62.50 84.00 69.60 -Wound/Ulcer Outcome Not Healed Not Healed Not Healed -Ulcer Cleansing Rinsed/ Rinsed/ Rinsed/ Irrigated with Irrigated with Irrigated with Saline Saline Saline -Foul Odor after Cleansing No No No -Bioengineered Tissue No No No -Bleeding Controlled with Pressure Pressure Pressure -Other tunnel--1.5cm -Offloading No No No -Treatment Response Procedure Procedure Procedure Tolerated Well Tolerated Well Tolerated Well Pain Scale: 0-10 Numeric Is Patient Pain Free? No Yes Yes Wound debrided: Lower abdominal wound Type of Debridement: Excisional debridement Anesthesia Used: 4% Lidocaine Solution Depth: Down to and including healthy tissue, in the subcutaneous layer Percentage of wound debrided: 100 Instrument Used: 7mm curette Tissue Removed: Subcutaneous tissue and slough Severity: Fat Layer Exposed Amount of bleeding with debridement: Mild Bleeding Controlled with: Pressure, Compression and gauze Patient tolerated procedure well - Additional Wound Wound debrided: Posterior neck Type of Debridement: Excisional debridement Anesthesia Used: 4% Lidocaine Solution Depth: Down to and including healthy tissue, in the subcutaneous layer Percentage of wound debrided: 100 Instrument Used: 5mm curette Tissue Removed: Subcutaneous tissue and slough Severity: Fat Layer Exposed Amount of bleeding with debridement: Mild Bleeding Controlled with: Pressure, Compression and gauze Patient tolerated procedure: Patient tolerated procedure well Assessment/Plan Active Problems Nonhealing surgical wound (Acute) Obesity (Chronic) Open wound of abdominal wall with complication (Acute) diabetic abscess wound right lower abdominal wall Open wound of neck with complication (Acute) diabetic abscess wound right posterior neck diabetic abscess wound left posterior neck Type 2 diabetes mellitus (Chronic) Assessment: 1. Nonhealing surgical wound. 2. Open wound of abdominal wall with complication. 3. Open wound of neck with complication. 4. Type 2 diabetes mellitus. 5. Obesity Plan: Debridement of both wounds done as documented above. Procedure was well- tolerated. Will do a wound VAC holiday this week. Will start silver alginate (aquacel silver) dressing changes daily to both opened wounds. This will allow the fela wound to heal which appears excoriated and the source of much of her pain. Encouraged to get into the shower and wash area with soap and water and pat dry well. She is drinking Glucerna for extra protein. She has had some changes in her insulin and her blood sugars are improving. She is trying to keep her blood sugars undercontrol. Her wound cultures Pre op grew Corynebacterium striatum and Actinimyces odontolyticus and Anaerobic cocci. Operative cultures from 05/02/18 Neck showed Staphylococcus epidermidis and abdomen showed now organisms. She is to continue her Clindamycin. Her Pre- albumin was 15.2 from 05/02/18. Encouraged her to continue her high protein diet and to continue controlling her blood sugars. She is to follow up in one week. She is to call with any concerns. I will discuss her pain issues with Dr. Stafford and let him decide what to prescribe her. Code Visit [id number]
== END 2018-05-25 23:59 ==
LOC: WC 14:45
PROVIDERS: Family Provider Family Medicine; PCP Family Medicine; Visit Provider Nurse Practitioner Family
DX: T81.89XA Other complications of procedures, not elsewhere classified, initial encounter (principal); Y83.8 Other surgical procedures as the cause of abnormal reaction of the patient, or of later complication, without mention of misadventure at the time of the procedure; E11.9 Type 2 diabetes mellitus without complications; Z86.14 Personal history of Methicillin resistant Staphylococcus aureus infection; E66.01 Morbid (severe) obesity due to excess calories; Z68.41 Body mass index [BMI] 40.0-44.9, adult; Z71.3 Dietary counseling and surveillance; E78.5 Hyperlipidemia, unspecified; I10 Essential (primary) hypertension; Z79.899 Other long term (current) drug therapy; Z79.82 Long term (current) use of aspirin; Z79.4 Long term (current) use of insulin
CPT/HCPCS: 11042; 11045; 97605; 97606; 99213; G0463

== ENCOUNTER 2018-06-20 14:15 | Outpatient (RCR) | payer OTHER, SELFPAY ==
[2018-05-26 01:36] VITALS: BP 108/57; PULSE 133; RESP 18; TEMP 36.8
[2018-05-30 14:59] VITALS: BP 123/54; PULSE 120; RESP 18; TEMP 36.2; BMI 40.6
--- NOTE | 2018-05-30 15:54 | PCM.WC.PN ---
(1) Nonhealing surgical wound Status: Acute Current Visit: Yes Code(s): T81.89XA - Other complications of procedures, not elsewhere classified, initial encounter (2) Open wound of abdominal wall with complication Status: Acute Current Visit: Yes Code(s): S31.109A - Unspecified open wound of abdominal wall, unspecified quadrant without penetration into peritoneal cavity, initial encounter Comment: diabetic abscess wound right lower abdominal wall (3) Open wound of neck with complication Status: Acute Current Visit: Yes Code(s): S11.90XA - Unspecified open wound of unspecified part of neck, initial encounter Comment: diabetic abscess wound right posterior neck diabetic abscess wound left posterior neck (4) Necrotizing soft tissue infection Status: Acute Current Visit: Yes Code(s): M79.89 - Other specified soft tissue disorders (5) Panniculitis Status: Acute Current Visit: Yes Code(s): M79.3 - Panniculitis, unspecified (6) Type 2 diabetes mellitus Status: Chronic Current Visit: Yes Qualifiers: Code(s): E11.9 - Type 2 diabetes mellitus without complications (7) Obesity Status: Chronic Current Visit: Yes Code(s): E66.9 - Obesity, unspecified Type of Wound Date of Service: 05/30/18 Chief Complaint: Follow-up surgical wound and VAC management. History of Wound: On 05/02/18 patient under went a surgical preparation posterior neck with incision and drainage and excisional debridement multiple necrotizing diabetic abscess wounds (45 cm2) and a surgical preparation right lower abdominal wall with incision and drainage and excisional debridement skin and subcutaneous tissue for necrotizing soft tissue diabetic abscess wound (231 cm2). She no longer wishes to have the wound VAC. She states her pain is much better since her wound VAC holiday last week. She will continue to apply a silver alginate dressing daily to her opened wounds. She feels denies fever, chills and states her appetite is well. She has been drinking glucerna daily. Progress of Wound: Wounds are clean and beefy red and improving. - Physical Exam Vital Signs Temp Pulse Resp BP 97.1 F L 120 H 18 123/54 H 05/30/18 14:59 05/30/18 14:59 05/30/18 14:59 05/30/18 14:59 General: Alert, Oriented x3, Cooperative HEENT: Atraumatic Oral: Moist Mucosa Lungs: Normal air movement Cardiovascular: Regular rate Abdomen: Soft, Non Tender Extremities: No edema, Capillary Refill Less than 3 Seconds, Peripheral Pulses Normal Skin: Ulcer/ Wound - Lower abdominal opened wound and posterior neck opened wound Wound Measurements and Assessment WC - Nurse 1 - General Ulcer Measurement Start: 05/30/18 14:59 Freq: Status: Active Protocol: Activity Type Activity Date Activity User E-Sign Co-Sign Detail Recorded Client Recorded Date Recorded By Document 05/30/18 14:59 RB [id number] 05/30/18 15:09 RB 05/30/18 14:59 Wound Center Nurse 1 [Ulcer Assessment] #2 posterior neck -Combined with other wound No -Current Size (cm) - Length 4 -Current Size (cm) - Width 9.2 -Current Size (cm) - Depth 0.6 -Total Square Cm 36.8 -Photo Taken No -Tunneling No -Undermining/Tunneling No -Circular Undermining No -Exudate Amt Small -Exudate Type Serosanguineous -Wound Margin Distinct, Outline Attached -Granulation Amt Large (67-100%) -Granulation Quality [place] -Slough/Fibrin Yes -Necrosis Amt Small (1-33%) -Necrotic Tissue Type Adherent Slough -Structure Exposed N/A -Texture (Yumiko-wound Skin Appearance) Assessed -Moisture (Yumiko-wound Skin Appearance Assessed ) -Color (Yuimko-wound Skin Appearance) Assessed -Temperature (Yumiko-wound Skin No Abnormality Appearance) (Pt Warm) -Tenderness on Palpation (Yumkio-wound No Skin Appearance) -Ulcer Cleansing Rinsed/ Irrigated with Saline -Foul Odor after Cleansing No -Anesthetic Used 4% Lidocaine Solution #1abdomen -Combined with other wound No -Current Size (cm) - Length 1.8 -Current Size (cm) - Width 22 -Current Size (cm) - Depth 0.4 -Total Square Cm 39.6 -Photo Taken No -Tunneling No -Undermining/Tunneling No -Circular Undermining No -Exudate Amt Small -Exudate Type Serosanguineous -Wound Margin Distinct, Outline Attached -Granulation Amt Large (67-100%) -Granulation Quality [place] -Slough/Fibrin Yes -Necrosis Amt Small (1-33%) -Necrotic Tissue Type Adherent Slough -Structure Exposed N/A -Texture (Yumiko-wound Skin Appearance) Assessed -Moisture (Yumiko-wound Skin Appearance Assessed ) -Color (Yumiko-wound Skin Appearance) Assessed -Temperature (Yumiko-wound Skin No Abnormality Appearance) (Pt Warm) -Tenderness on Palpation (Yumiko-wound No Skin Appearance) -Ulcer Cleansing Rinsed/ Irrigated with Saline -Foul Odor after Cleansing No -Anesthetic Used 4% Lidocaine Solution RENZO - Nurse 2 - General Ulcer CM Notes Start: 05/30/18 14:59 Freq: Status: Active Protocol: Activity Type Activity Date Activity User E-Sign Co-Sign Detail Recorded Client Recorded Date Recorded By Document 05/30/18 15:24 [id number] 05/30/18 15:29 05/30/18 15:24 Wound Center Nurse 2 [Procedure/Treatment] #2 posterior neck -Time 15:26 -Correct Patient Yes -Correct Side, Site, Position Yes -Correct Procedure Yes -Procedure Performed Yes -Type of Procedure Debridement -Clinical Debridement Subcutaneous -Post Debridement Size (cm) - Length 4.5 -Post Debridement Size (cm) - Width 9 -Post Debridement Size (cm) - Depth 0.8 -Total Square Cm 40.5 -Wound/Ulcer Outcome Not Healed -Ulcer Cleansing Rinsed/ Irrigated with Saline -Foul Odor after Cleansing No -Bioengineered Tissue No -Bleeding Controlled with Pressure -Offloading No -Treatment Response Procedure Tolerated Well #1abdomen -Time 15:26 -Correct Patient Yes -Correct Side, Site, Position Yes -Correct Procedure Yes -Procedure Performed Yes -Type of Procedure Debridement -Clinical Debridement Subcutaneous -Post Debridement Size (cm) - Length 2.0 -Post Debridement Size (cm) - Width 21.5 -Post Debridement Size (cm) - Depth 1.0 -Total Square Cm 43.00 -Wound/Ulcer Outcome Not Healed -Ulcer Cleansing Rinsed/ Irrigated with Saline -Foul Odor after Cleansing No -Bioengineered Tissue No -Bleeding Controlled with Pressure -Offloading No -Treatment Response Procedure Tolerated Well [See Physician Procedure note for Specifics] Pain Scale: 0-10 Numeric [Pain] -Is Patient Pain Free? Yes Musculoskeletal: No Tenderness to Palpation of Joints or Extremities Neurological: Neuro grossly intact Psych/Mental Status: Normal Affect, Appropriate Debridement Note Post-Debridement Measurements/Treatment WC - Nurse 2 - General Ulcer CM Notes Start: 05/30/18 14:59 Freq: Status: Active Protocol: Activity Type Activity Date Activity User E-Sign Co-Sign Detail Recorded Client Recorded Date Recorded By Document 05/30/18 15:24 TRES [id number] 05/30/18 15:29 TRES 05/30/18 15:24 Wound Center Nurse 2 #2 posterior neck -Time 15:26 -Correct Patient Yes -Correct Side, Site, Position Yes -Correct Procedure Yes -Procedure Performed Yes -Type of Procedure Debridement -Clinical Debridement Subcutaneous -Post Debridement Size (cm) - Length 4.5 -Post Debridement Size (cm) - Width 9 -Post Debridement Size (cm) - Depth 0.8 -Total Square Cm 40.5 -Wound/Ulcer Outcome Not Healed -Ulcer Cleansing Rinsed/ Irrigated with Saline -Foul Odor after Cleansing No -Bioengineered Tissue No -Bleeding Controlled with Pressure -Offloading No -Treatment Response Procedure Tolerated Well #1abdomen -Time 15:26 -Correct Patient Yes -Correct Side, Site, Position Yes -Correct Procedure Yes -Procedure Performed Yes -Type of Procedure Debridement -Clinical Debridement Subcutaneous -Post Debridement Size (cm) - Length 2.0 -Post Debridement Size (cm) - Width 21.5 -Post Debridement Size (cm) - Depth 1.0 -Total Square Cm 43.00 -Wound/Ulcer Outcome Not Healed -Ulcer Cleansing Rinsed/ Irrigated with Saline -Foul Odor after Cleansing No -Bioengineered Tissue No -Bleeding Controlled with Pressure -Offloading No -Treatment Response Procedure Tolerated Well Pain Scale: 0-10 Numeric Is Patient Pain Free? Yes Wound debrided: Lower abdominal wound Laterality: Not Applicable Type of Debridement: Excisional debridement Anesthesia Used: 5% Lidocaine Gel Depth: Down to and including healthy tissue, in the subcutaneous layer Percentage of wound debrided: 100 Instrument Used: 7mm curette Tissue Removed: Subcutaneous tissue and slough Severity: Fat Layer Exposed Amount of bleeding with debridement: Mild Bleeding Controlled with: Pressure, Compression and gauze Patient tolerated procedure well - Additional Wound Wound debrided: Posterior neck wound Laterality: Not Applicable Type of Debridement: Excisional debridement Anesthesia Used: 5% Lidocaine Gel Depth: Down to and including healthy tissue, in the subcutaneous layer Percentage of wound debrided: 100 Instrument Used: 7mm curette Tissue Removed: Subcutaneous tissue and slough Severity: Fat Layer Exposed Amount of bleeding with debridement: Mild Bleeding Controlled with: Pressure, Compression and gauze Patient tolerated procedure: Patient tolerated procedure well Assessment/Plan Active Problems Nonhealing surgical wound (Acute) Obesity (Chronic) Open wound of abdominal wall with complication (Acute) diabetic abscess wound right lower abdominal wall Open wound of neck with complication (Acute) diabetic abscess wound right posterior neck diabetic abscess wound left posterior neck Necrotizing soft tissue infection (Acute) Panniculitis (Acute) Type 2 diabetes mellitus (Chronic) Assessment: 1. Nonhealing surgical wound. 2. Open wound of abdominal wall with complication. 3. Open wound of neck with complication. 4. Type 2 diabetes mellitus. 5. Obesity Plan: Debridement of both wounds done as documented above. Procedure was well-tolerated. Will discontinue the wound VAC. She is to send the VAC back. Will continue silver alginate (aquacel silver) dressing changes daily to both opened wounds. This will allow the yumiko wound is much improved. Encouraged to get into the shower and wash area with soap and water and pat dry well. She is drinking Glucerna for extra protein. She has had some changes in her insulin and her blood sugars are improving. She is trying to keep her blood sugars undercontrol. Her wound cultures Pre op grew Corynebacterium striatum and Actinimyces odontolyticus and Anaerobic cocci. Operative cultures from 05/02/18 Neck showed Staphylococcus epidermidis and abdomen showed now organisms. She is to continue her Clindamycin. Her Pre-albumin was 15.2 from 05/02/18. Encouraged her to continue her high protein diet and to continue controlling her blood sugars. She is to follow up in one week. She is to call with any concerns. Her pain is much better controlled since Dr. Stafford switched her pain medication to Morphine extended release and since she came off the wound VAC. She states that she has not needed pain medication today because she is feeling so much better since the VAC came off. Code Visit 111xxx-113xx: [id number] Jaylyn subq tissue 20 sq cm/< Add On Codes: 80326 Jaylyn subq tissue add-on - x 4
[2018-06-06 14:47] VITALS: BP 119/90; PULSE 125; RESP 20; TEMP 36.3; BMI 40.6
--- NOTE | 2018-06-06 17:36 | PCM.WC.PN ---
(1) Nonhealing surgical wound Status: Acute Current Visit: Yes Code(s): T81.89XA - Other complications of procedures, not elsewhere classified, initial encounter (2) Open wound of abdominal wall with complication Status: Acute Current Visit: Yes Code(s): S31.109A - Unspecified open wound of abdominal wall, unspecified quadrant without penetration into peritoneal cavity, initial encounter Comment: diabetic abscess wound right lower abdominal wall (3) Open wound of neck with complication Status: Acute Current Visit: Yes Code(s): S11.90XA - Unspecified open wound of unspecified part of neck, initial encounter Comment: diabetic abscess wound right posterior neck diabetic abscess wound left posterior neck (4) Necrotizing soft tissue infection Status: Acute Current Visit: Yes Code(s): M79.89 - Other specified soft tissue disorders (5) Panniculitis Status: Acute Current Visit: Yes Code(s): M79.3 - Panniculitis, unspecified (6) Type 2 diabetes mellitus Status: Chronic Current Visit: Yes Qualifiers: Code(s): E11.9 - Type 2 diabetes mellitus without complications (7) Obesity Status: Chronic Current Visit: Yes Code(s): E66.9 - Obesity, unspecified Type of Wound Date of Service: 06/06/18 Chief Complaint: Follow-up surgical wound and VAC management. History of Wound: On 05/02/18 patient under went a surgical preparation posterior neck with incision and drainage and excisional debridement multiple necrotizing diabetic abscess wounds (45 cm2) and a surgical preparation right lower abdominal wall with incision and drainage and excisional debridement skin and subcutaneous tissue for necrotizing soft tissue diabetic abscess wound (231 cm2). She no longer wishes to have the wound VAC, will discontinue. She states her pain is much better since her wound VAC holiday last week. She will continue to apply a silver alginate dressing daily to her opened wounds. Her wounds are healing well. She feels denies fever, chills and states her appetite is well. She has been drinking glucerna daily. Progress of Wound: Improving. - Physical Exam Vital Signs Temp Pulse Resp BP 97.3 F L 125 H 20 H 119/90 H 06/06/18 14:47 06/06/18 14:47 06/06/18 14:47 06/06/18 14:47 General: Alert, Oriented x3, Cooperative HEENT: Atraumatic Oral: Moist Mucosa Neck: - - Good neck range of motion. Lungs: Normal air movement Cardiovascular: Regular rate Abdomen: Soft Extremities: No edema, Capillary Refill Less than 3 Seconds Skin: Ulcer/ Wound - Abdominal wound is almost healed and neck wound is much improved. Both wounds are beefy red. Wound Measurements and Assessment WC - Nurse 1 - General Ulcer Measurement Start: 05/30/18 14:59 Freq: Status: Active Protocol: Activity Type Activity Date Activity User E-Sign Co-Sign Detail Recorded Client Recorded Date Recorded By Document 06/06/18 14:47 DL [id number] 06/06/18 15:02 DL 06/06/18 14:47 Wound Center Nurse 1 [Ulcer Assessment] #2 posterior neck -Current Size (cm) - Length 3 -Current Size (cm) - Width 7.5 -Current Size (cm) - Depth 0.1 -Total Square Cm 22.5 -Photo Taken No -Exudate Amt Small -Exudate Type Serosanguineous -Wound Margin Distinct, Outline Attached -Granulation Amt Large (67-100%) -Granulation Quality Red -Necrosis Amt None Present (0 %) -Structure Exposed N/A -Texture (Fela-wound Skin Appearance) Scarring -Moisture (Fela-wound Skin Appearance No Abnormality ) -Color (Fela-wound Skin Appearance) Rubor -Temperature (Fela-wound Skin No Abnormality Appearance) (Pt Warm) -Tenderness on Palpation (Fela-wound Yes Skin Appearance) -Ulcer Cleansing Wound Cleanser -Foul Odor after Cleansing No -Anesthetic Used 5% Lidocaine Gel #1abdomen -Current Size (cm) - Length 1 -Current Size (cm) - Width 18.7 -Current Size (cm) - Depth 0.1 -Total Square Cm 18.7 -Photo Taken No -Exudate Amt Small -Exudate Type Serosanguineous -Wound Margin Distinct, Outline Attached -Necrosis Amt None Present (0 %) -Structure Exposed N/A -Texture (Fela-wound Skin Appearance) Scarring -Moisture (Fela-wound Skin Appearance No Abnormality ) -Color (Fela-wound Skin Appearance) Rubor -Temperature (Fela-wound Skin No Abnormality Appearance) (Pt Warm) -Tenderness on Palpation (Fela-wound Yes Skin Appearance) -Ulcer Cleansing Wound Cleanser -Foul Odor after Cleansing No -Anesthetic Used 5% Lidocaine Gel WC - Nurse 2 - General Ulcer CM Notes Start: 05/30/18 14:59 Freq: Status: Active Protocol: Activity Type Activity Date Activity User E-Sign Co-Sign Detail Recorded Client Recorded Date Recorded By Document 06/06/18 16:00 AN [id number] 06/06/18 16:10 AN 06/06/18 16:00 Wound Center Nurse 2 [Procedure/Treatment] #2 posterior neck -Time 16:04 -Correct Patient Yes -Correct Side, Site, Position Yes -Correct Procedure Yes -Procedure Performed Yes -Type of Procedure Debridement -Clinical Debridement Subcutaneous -Post Debridement Size (cm) - Length 9.5 -Post Debridement Size (cm) - Width 3.5 -Post Debridement Size (cm) - Depth 0.2 -Total Square Cm 33.25 -Wound/Ulcer Outcome Not Healed -Ulcer Cleansing Rinsed/ Irrigated with Saline -Foul Odor after Cleansing No -Treatment Response Procedure Tolerated Well #1abdomen -Time 16:04 -Correct Patient Yes -Correct Side, Site, Position Yes -Correct Procedure Yes -Procedure Performed Yes -Type of Procedure Debridement -Clinical Debridement Subcutaneous -Post Debridement Size (cm) - Length 19.3 -Post Debridement Size (cm) - Width 1.0 -Post Debridement Size (cm) - Depth 0.1 -Total Square Cm 19.30 -Wound/Ulcer Outcome Not Healed -Ulcer Cleansing Rinsed/ Irrigated with Saline -Treatment Response Procedure Tolerated Well [See Physician Procedure note for Specifics] Pain Scale: 0-10 Numeric [Pain] -Is Patient Pain Free? Yes Musculoskeletal: No Tenderness to Palpation of Joints or Extremities Neurological: Neuro grossly intact Psych/Mental Status: Normal Affect, Appropriate Debridement Note Post-Debridement Measurements/Treatment WC - Nurse 2 - General Ulcer CM Notes Start: 05/30/18 14:59 Freq: Status: Active Protocol: Activity Type Activity Date Activity User E-Sign Co-Sign Detail Recorded Client Recorded Date Recorded By Document 05/30/18 15:24 [email or web address] [email or web address] 05/30/18 15:29 Document 06/06/18 16:00 AN [email or web address] 06/06/18 16:10 AN 05/30/18 06/06/18 15:24 16:00 Wound Center Nurse 2 #2 posterior neck -Time 15:26 16:04 -Correct Patient Yes Yes -Correct Side, Site, Position Yes Yes -Correct Procedure Yes Yes -Procedure Performed Yes Yes -Type of Procedure Debridement Debridement -Clinical Debridement Subcutaneous Subcutaneous -Post Debridement Size (cm) - Length 4.5 9.5 -Post Debridement Size (cm) - Width 9 3.5 -Post Debridement Size (cm) - Depth 0.8 0.2 -Total Square Cm 40.5 33.25 -Wound/Ulcer Outcome Not Healed Not Healed -Ulcer Cleansing Rinsed/ Rinsed/ Irrigated with Irrigated with Saline Saline -Foul Odor after Cleansing No No -Bioengineered Tissue No -Bleeding Controlled with Pressure -Offloading No -Treatment Response Procedure Procedure Tolerated Well Tolerated Well #1abdomen -Time 15:26 16:04 -Correct Patient Yes Yes -Correct Side, Site, Position Yes Yes -Correct Procedure Yes Yes -Procedure Performed Yes Yes -Type of Procedure Debridement Debridement -Clinical Debridement Subcutaneous Subcutaneous -Post Debridement Size (cm) - Length 2.0 19.3 -Post Debridement Size (cm) - Width 21.5 1.0 -Post Debridement Size (cm) - Depth 1.0 0.1 -Total Square Cm 43.00 19.30 -Wound/Ulcer Outcome Not Healed Not Healed -Ulcer Cleansing Rinsed/ Rinsed/ Irrigated with Irrigated with Saline Saline -Foul Odor after Cleansing No -Bioengineered Tissue No -Bleeding Controlled with Pressure -Offloading No -Treatment Response Procedure Procedure Tolerated Well Tolerated Well Pain Scale: 0-10 Numeric Is Patient Pain Free? Yes Yes Wound debrided: Abdominal wound Type of Debridement: Excisional debridement Anesthesia Used: 4% Lidocaine Solution Depth: Down to and including healthy tissue, in the subcutaneous layer Percentage of wound debrided: 100 Instrument Used: 7mm curette Tissue Removed: Subcutaneouns tissue and slough Severity: Fat Layer Exposed Amount of bleeding with debridement: Mild Bleeding Controlled with: Pressure Patient tolerated procedure well - Additional Wound Wound debrided: Posterior neck Laterality: Not Applicable Type of Debridement: Excisional debridement Anesthesia Used: 4% Lidocaine Solution Depth: Down to and including healthy tissue, in the subcutaneous layer Percentage of wound debrided: 100 Instrument Used: 7mm curette Tissue Removed: Subcutaneous tissue and slough Severity: Fat Layer Exposed Amount of bleeding with debridement: Mild Bleeding Controlled with: Compression and gauze Patient tolerated procedure: Patient tolerated procedure well Assessment/Plan Active Problems Nonhealing surgical wound (Acute) Obesity (Chronic) Open wound of abdominal wall with complication (Acute) diabetic abscess wound right lower abdominal wall Open wound of neck with complication (Acute) diabetic abscess wound right posterior neck diabetic abscess wound left posterior neck Necrotizing soft tissue infection (Acute) Panniculitis (Acute) Type 2 diabetes mellitus (Chronic) Assessment: 1. Nonhealing surgical wound. 2. Open wound of abdominal wall with complication. 3. Open wound of neck with complication. 4. Type 2 diabetes mellitus. 5. Obesity Plan: Debridement of both wounds done as documented above. Procedure was well-tolerated. Will discontinue the wound VAC. Will continue silver alginate (aquacel silver) dressing changes daily to both opened wounds. This will allow the fela wound is much improved. Encouraged to get into the shower and wash area with soap and water and pat dry well. She is drinking Glucerna for extra protein. She has had some changes in her insulin and her blood sugars are improving. She is trying to keep her blood sugars undercontrol. Her wound cultures Pre op grew Corynebacterium striatum and Actinimyces odontolyticus and Anaerobic cocci. Operative cultures from 05/02/18 Neck showed Staphylococcus epidermidis and abdomen showed now organisms. She completed the Clindamycin. Her Pre-albumin was 15.2 from 05/02/18. Encouraged her to continue her high protein diet and to continue controlling her blood sugars. She is to follow up in one week. She is to call with any concerns. Her pain is much better controlled since Dr. Stafford switched her pain medication to Morphine extended release and since she came off the wound VAC. She is almost out of pain medication. She is using it only for dressing changes. She does not need anything as strong as she was previously prescribed. [place] report reviewed and no suspicious activity. Percocet (20 tabs) prescribed. She is to follow up in one week. Code Visit 54051
[2018-06-20 14:33] VITALS: BP 144/99; PULSE 128; RESP 20; TEMP 37.3; BMI 40.6
--- NOTE | 2018-06-20 16:16 | PCM.WC.PN ---
(1) Nonhealing surgical wound Status: Acute Current Visit: Yes Code(s): T81.89XA - Other complications of procedures, not elsewhere classified, initial encounter (2) Open wound of abdominal wall with complication Status: Acute Current Visit: Yes Code(s): S31.109A - Unspecified open wound of abdominal wall, unspecified quadrant without penetration into peritoneal cavity, initial encounter Comment: diabetic abscess wound right lower abdominal wall (3) Open wound of neck with complication Status: Acute Current Visit: Yes Code(s): S11.90XA - Unspecified open wound of unspecified part of neck, initial encounter Comment: diabetic abscess wound right posterior neck diabetic abscess wound left posterior neck (4) Necrotizing soft tissue infection Status: Acute Current Visit: Yes Code(s): M79.89 - Other specified soft tissue disorders (5) Panniculitis Status: Acute Current Visit: Yes Code(s): M79.3 - Panniculitis, unspecified (6) Type 2 diabetes mellitus Status: Chronic Current Visit: Yes Qualifiers: Code(s): E11.9 - Type 2 diabetes mellitus without complications (7) Obesity Status: Chronic Current Visit: Yes Code(s): E66.9 - Obesity, unspecified Type of Wound Date of Service: 06/20/18 Chief Complaint: Follow-up surgical wound and VAC management. History of Wound: On 05/02/18 patient under went a surgical preparation posterior neck with incision and drainage and excisional debridement multiple necrotizing diabetic abscess wounds (45 cm2) and a surgical preparation right lower abdominal wall with incision and drainage and excisional debridement skin and subcutaneous tissue for necrotizing soft tissue diabetic abscess wound (231 cm2). She no longer wishes to have the wound VAC, will discontinue. She states her pain is much better since her wound VAC holiday last week. She will continue to apply a silver alginate dressing daily to her opened wounds. Her wounds are healing well. She feels denies fever, chills and states her appetite is well. She has been drinking glucerna daily. Progress of Wound: Improving. - Physical Exam Vital Signs Temp Pulse Resp BP 99.1 F 128 H 20 H 144/99 H 06/20/18 14:33 06/20/18 14:33 06/20/18 14:33 06/20/18 14:33 General: Alert, Oriented x3, Cooperative HEENT: Atraumatic Oral: Moist Mucosa Lungs: Normal air movement Cardiovascular: Regular rate Extremities: No edema, Capillary Refill Less than 3 Seconds Skin: Ulcer/ Wound - Posterior neck surgical wound and lower abdominal wound Wound Measurements and Assessment WC - Nurse 1 - General Ulcer Measurement Start: 05/30/18 14:59 Freq: Status: Active Protocol: Activity Type Activity Date Activity User E-Sign Co-Sign Detail Recorded Client Recorded Date Recorded By Document 06/20/18 14:33 AN [email or web address] 06/20/18 14:53 AN 06/20/18 14:33 Wound Center Nurse 1 [Ulcer Assessment] #2 posterior neck -Current Size (cm) - Length 1.2 -Current Size (cm) - Width 6.4 -Current Size (cm) - Depth 0.1 -Total Square Cm 7.68 -Photo Taken No -Tunneling No -Undermining/Tunneling No -Circular Undermining No -Classification - Thickness Full Thickness without Exposed Support Structure -Exudate Amt Small -Exudate Type Sanguineous -Wound Margin Distinct, Outline Attached -Granulation Amt Large (67-100%) -Granulation Quality Red #1abdomen -Current Size (cm) - Length 0.3 -Current Size (cm) - Width 10.2 -Current Size (cm) - Depth 0.1 -Total Square Cm 3.06 -Classification - Thickness Full Thickness without Exposed Support Structure -Exudate Amt Small -Exudate Type Sanguineous -Wound Margin Distinct, Outline Attached -Granulation Amt Large (67-100%) -Granulation Quality Red WC - Nurse 2 - General Ulcer CM Notes Start: 05/30/18 14:59 Freq: Status: Active Protocol: Activity Type Activity Date Activity User E-Sign Co-Sign Detail Recorded Client Recorded Date Recorded By Document 06/20/18 15:01 [id number] 06/20/18 15:09 06/20/18 15:01 Wound Center Nurse 2 [Procedure/Treatment] #2 posterior neck -Time 15:04 -Correct Patient Yes -Correct Side, Site, Position Yes -Correct Procedure Yes -Procedure Performed Yes -Type of Procedure Debridement -Clinical Debridement Subcutaneous -Post Debridement Size (cm) - Length 1.2 -Post Debridement Size (cm) - Width 6.8 -Post Debridement Size (cm) - Depth 0.1 -Total Square Cm 8.16 -Wound/Ulcer Outcome Not Healed -Ulcer Cleansing Rinsed/ Irrigated with Saline -Foul Odor after Cleansing No -Bioengineered Tissue No -Bleeding Controlled with Pressure -Offloading No -Treatment Response Procedure Tolerated Well #1abdomen -Time 15:04 -Correct Patient Yes -Correct Side, Site, Position Yes -Correct Procedure Yes -Procedure Performed Yes -Type of Procedure Debridement -Clinical Debridement Subcutaneous -Post Debridement Size (cm) - Length 10.5 -Post Debridement Size (cm) - Width 0.5 -Post Debridement Size (cm) - Depth 0.1 -Total Square Cm 5.25 -Wound/Ulcer Outcome Not Healed -Ulcer Cleansing Rinsed/ Irrigated with Saline -Foul Odor after Cleansing No -Bioengineered Tissue No -Bleeding Controlled with Pressure -Offloading No -Treatment Response Procedure Tolerated Well [See Physician Procedure note for Specifics] Pain Scale: 0-10 Numeric [Pain] -Is Patient Pain Free? Yes Musculoskeletal: No Tenderness to Palpation of Joints or Extremities Neurological: Neuro grossly intact Psych/Mental Status: Normal Affect, Appropriate Debridement Note Post-Debridement Measurements/Treatment WC - Nurse 2 - General Ulcer CM Notes Start: 05/30/18 14:59 Freq: Status: Active Protocol: Activity Type Activity Date Activity User E-Sign Co-Sign Detail Recorded Client Recorded Date Recorded By Document 05/30/18 15:24 [id number] 05/30/18 15:29 Document 06/06/18 16:00 AN [id number] 06/06/18 16:10 AN Document 06/20/18 15:01 [id number] 06/20/18 15:09 05/30/18 06/06/18 06/20/18 15:24 16:00 15:01 Wound Center Nurse 2 #2 posterior neck -Time 15:26 16:04 15:04 -Correct Patient Yes Yes Yes -Correct Side, Site, Position Yes Yes Yes -Correct Procedure Yes Yes Yes -Procedure Performed Yes Yes Yes -Type of Procedure Debridement Debridement Debridement -Clinical Debridement Subcutaneous Subcutaneous Subcutaneous -Post Debridement Size (cm) - Length 4.5 9.5 1.2 -Post Debridement Size (cm) - Width 9 3.5 6.8 -Post Debridement Size (cm) - Depth 0.8 0.2 0.1 -Total Square Cm 40.5 33.25 8.16 -Wound/Ulcer Outcome Not Healed Not Healed Not Healed -Ulcer Cleansing Rinsed/ Rinsed/ Rinsed/ Irrigated with Irrigated with Irrigated with Saline Saline Saline -Foul Odor after Cleansing No No No -Bioengineered Tissue No No -Bleeding Controlled with Pressure Pressure -Offloading No No -Treatment Response Procedure Procedure Procedure Tolerated Well Tolerated Well Tolerated Well #1abdomen -Time 15:26 16:04 15:04 -Correct Patient Yes Yes Yes -Correct Side, Site, Position Yes Yes Yes -Correct Procedure Yes Yes Yes -Procedure Performed Yes Yes Yes -Type of Procedure Debridement Debridement Debridement -Clinical Debridement Subcutaneous Subcutaneous Subcutaneous -Post Debridement Size (cm) - Length 2.0 19.3 10.5 -Post Debridement Size (cm) - Width 21.5 1.0 0.5 -Post Debridement Size (cm) - Depth 1.0 0.1 0.1 -Total Square Cm 43.00 19.30 5.25 -Wound/Ulcer Outcome Not Healed Not Healed Not Healed -Ulcer Cleansing Rinsed/ Rinsed/ Rinsed/ Irrigated with Irrigated with Irrigated with Saline Saline Saline -Foul Odor after Cleansing No No -Bioengineered Tissue No No -Bleeding Controlled with Pressure Pressure -Offloading No No -Treatment Response Procedure Procedure Procedure Tolerated Well Tolerated Well Tolerated Well Pain Scale: 0-10 Numeric Is Patient Pain Free? Yes Yes Yes Wound debrided: posterior neck Laterality: Not Applicable Type of Debridement: Excisional debridement Anesthesia Used: 4% Lidocaine Solution Depth: Down to and including healthy tissue, in the subcutaneous layer Percentage of wound debrided: 100 Instrument Used: 5mm curette Tissue Removed: Subcutaneous tissue and slough Severity: Fat Layer Exposed Amount of bleeding with debridement: Mild Bleeding Controlled with: Pressure Patient tolerated procedure well - Additional Wound Wound debrided: Lower abdominal wound Laterality: Not Applicable Type of Debridement: Excisional debridement Anesthesia Used: 4% Lidocaine Solution Depth: Down to and including healthy tissue, in the subcutaneous layer Percentage of wound debrided: 100 Instrument Used: 5mm curette Tissue Removed: Subcutaneous tissue and slough Severity: Fat Layer Exposed Amount of bleeding with debridement: Mild Bleeding Controlled with: Compression and gauze Patient tolerated procedure: Patient tolerated procedure well Assessment/Plan Active Problems Nonhealing surgical wound (Acute) Obesity (Chronic) Open wound of abdominal wall with complication (Acute) diabetic abscess wound right lower abdominal wall Open wound of neck with complication (Acute) diabetic abscess wound right posterior neck diabetic abscess wound left posterior neck Necrotizing soft tissue infection (Acute) Panniculitis (Acute) Type 2 diabetes mellitus (Chronic) Assessment: 1. Nonhealing surgical wound. 2. Open wound of abdominal wall with complication. 3. Open wound of neck with complication. 4. Type 2 diabetes mellitus. 5. Obesity Plan: Debridement of both wounds done as documented above. Procedure was well-tolerated. Will discontinue the wound VAC. Will continue silver alginate (aquacel silver) dressing changes daily to both opened wounds. This will allow the fela wound is much improved. Encouraged to get into the shower and wash area with soap and water and pat dry well. She has good range of motion with her neck. She is drinking Glucerna for extra protein. She has had some changes in her insulin and her blood sugars are improving. She is trying to keep her blood sugars undercontrol. Her wound cultures Pre op grew Corynebacterium striatum and Actinimyces odontolyticus and Anaerobic cocci. Operative cultures from 05/02/18 Neck showed Staphylococcus epidermidis and abdomen showed now organisms. She completed the Clindamycin. Her Pre-albumin was 15.2 from 05/02/18. Encouraged her to continue her high protein diet and to continue controlling her blood sugars. She is to call with any concerns. Her neuropathy pain has increased since her PCP decreased her cymbalta. She is denying wound pain. She is looking for a new PCP, referred her to Dr. Oconnor or [facility]. The should be able to take her insurance. Follow up in one week. Code Visit [id number] post op
== END 2018-06-25 23:59 ==
LOC: WC 14:15
PROVIDERS: Family Provider Family Medicine; PCP Family Medicine; Visit Provider Nurse Practitioner Family
DX: T81.89XA Other complications of procedures, not elsewhere classified, initial encounter (principal); Y83.8 Other surgical procedures as the cause of abnormal reaction of the patient, or of later complication, without mention of misadventure at the time of the procedure; E11.9 Type 2 diabetes mellitus without complications; Z86.14 Personal history of Methicillin resistant Staphylococcus aureus infection; Z71.3 Dietary counseling and surveillance; Z68.41 Body mass index [BMI] 40.0-44.9, adult; I10 Essential (primary) hypertension; E78.5 Hyperlipidemia, unspecified; M79.89 Other specified soft tissue disorders; E66.9 Obesity, unspecified
CPT/HCPCS: 11042; 11045

== ENCOUNTER 2018-07-25 13:00 | Outpatient (RCR) | payer OTHER, SELFPAY ==
[2018-06-21 14:02] VITALS: BMI 40.6
[2018-06-26 01:14] VITALS: BP 144/99; PULSE 128; RESP 20; TEMP 37.3
[2018-06-27 15:16] VITALS: BP 139/92; PULSE 129; RESP 20; TEMP 36.1; BMI 40.6
--- NOTE | 2018-06-27 16:02 | PCM.WC.PN ---
(1) Open wound of neck with complication Status: Acute Current Visit: Yes Code(s): S11.90XA - Unspecified open wound of unspecified part of neck, initial encounter Comment: diabetic abscess wound right posterior neck diabetic abscess wound left posterior neck (2) Nonhealing surgical wound Status: Acute Current Visit: Yes Code(s): T81.89XA - Other complications of procedures, not elsewhere classified, initial encounter (3) Open wound of abdominal wall with complication Status: Acute Current Visit: Yes Code(s): S31.109A - Unspecified open wound of abdominal wall, unspecified quadrant without penetration into peritoneal cavity, initial encounter Comment: diabetic abscess wound right lower abdominal wall (4) History of MRSA infection Status: Chronic Current Visit: Yes Code(s): Z86.14 - Personal history of Methicillin resistant Staphylococcus aureus infection (5) Type 2 diabetes mellitus Status: Chronic Current Visit: Yes Qualifiers: Code(s): E11.9 - Type 2 diabetes mellitus without complications (6) Obesity Status: Chronic Current Visit: Yes Code(s): E66.9 - Obesity, unspecified Type of Wound Date of Service: 06/27/18 Chief Complaint: Follow-up surgical wound and VAC management. History of Wound: On 05/02/18 patient under went a surgical preparation posterior neck with incision and drainage and excisional debridement multiple necrotizing diabetic abscess wounds (45 cm2) and a surgical preparation right lower abdominal wall with incision and drainage and excisional debridement skin and subcutaneous tissue for necrotizing soft tissue diabetic abscess wound (231 cm2). She no longer wishes to have the wound VAC, will discontinue. She will continue to apply a silver alginate dressing daily to her opened wounds. Her wounds are healing well. She feels denies fever, chills and states her appetite is well. She has been drinking glucerna daily. Today her abdominal wound is healed. Progress of Wound: Improving. - Physical Exam Vital Signs Temp Pulse Resp BP 96.9 F L 129 H 20 H 139/92 H 06/27/18 15:16 06/27/18 15:16 06/27/18 15:16 06/27/18 15:16 General: Alert, Oriented x3, Cooperative HEENT: Atraumatic Oral: Moist Mucosa Lungs: Normal air movement Extremities: Capillary Refill Less than 3 Seconds, Peripheral Pulses Normal Skin: Ulcer/ Wound - Abdominal wound is healed. Posterior neck wound is improving. Wound Measurements and Assessment WC - Nurse 1 - General Ulcer Measurement Start: 06/27/18 15:16 Freq: Status: Active Protocol: Activity Type Activity Date Activity User E-Sign Co-Sign Detail Recorded Client Recorded Date Recorded By Document 06/27/18 15:16 DL [id number] 06/27/18 15:26 DL 06/27/18 15:16 Wound Center Nurse 1 [Ulcer Assessment] #2 posterior neck -Current Size (cm) - Length 1.3 -Current Size (cm) - Width 5.7 -Current Size (cm) - Depth 0.1 -Total Square Cm 7.41 -Photo Taken Yes -Exudate Amt Small -Exudate Type Serosanguineous -Wound Margin Distinct, Outline Attached -Granulation Amt Large (67-100%) -Granulation Quality [place] Red -Necrosis Amt Small (1-33%) -Necrotic Tissue Type Adherent Slough -Structure Exposed N/A -Texture (Yumiko-wound Skin Appearance) Scarring -Moisture (Yumiko-wound Skin Appearance No Abnormality ) -Color (Yumiko-wound Skin Appearance) No Abnormality -Temperature (Yumiko-wound Skin No Abnormality Appearance) (Pt Warm) -Tenderness on Palpation (Yumiko-wound No Skin Appearance) -Ulcer Cleansing Rinsed/ Irrigated with Saline -Foul Odor after Cleansing No -Anesthetic Used 5% Lidocaine Gel #1abdomen -Current Size (cm) - Length 0 -Current Size (cm) - Width 0 -Current Size (cm) - Depth 0 -Total Square Cm 0 -Photo Taken Yes -Exudate Amt None Present -Wound Margin Flat & Intact -Granulation Amt Large (67-100%) -Granulation Quality [place] -Necrosis Amt None Present (0 %) -Structure Exposed N/A -Texture (Yumiko-wound Skin Appearance) Scarring -Moisture (Yumiko-wound Skin Appearance No Abnormality ) -Color (Yumiko-wound Skin Appearance) No Abnormality -Temperature (Yumiko-wound Skin No Abnormality Appearance) (Pt Warm) -Tenderness on Palpation (Yumiko-wound No Skin Appearance) -Ulcer Cleansing Rinsed/ Irrigated with Saline -Foul Odor after Cleansing No WC - Nurse 2 - General Ulcer CM Notes Start: 06/27/18 15:16 Freq: Status: Active Protocol: Activity Type Activity Date Activity User E-Sign Co-Sign Detail Recorded Client Recorded Date Recorded By Document 06/27/18 15:43 [id number] 06/27/18 15:45 06/27/18 15:43 Wound Center Nurse 2 [Procedure/Treatment] #2 posterior neck -Time 15:44 -Correct Patient Yes -Correct Side, Site, Position Yes -Correct Procedure Yes -Procedure Performed Yes -Type of Procedure Debridement -Clinical Debridement Subcutaneous -Post Debridement Size (cm) - Length 1.3 -Post Debridement Size (cm) - Width 6.3 -Post Debridement Size (cm) - Depth 0.2 -Total Square Cm 8.19 -Wound/Ulcer Outcome Not Healed -Ulcer Cleansing Rinsed/ Irrigated with Saline -Foul Odor after Cleansing No -Bioengineered Tissue No -Bleeding Controlled with Pressure -Offloading No -Treatment Response Procedure Tolerated Well #1abdomen -Correct Patient No -Correct Side, Site, Position No -Correct Procedure No -Procedure Performed No -Post Debridement Size (cm) - Length 0 -Post Debridement Size (cm) - Width 0 -Post Debridement Size (cm) - Depth 0 -Total Square Cm 0 -Wound/Ulcer Outcome Healed- Epithelialized [See Physician Procedure note for Specifics] Pain Scale: 0-10 Numeric [Pain] -Is Patient Pain Free? Yes Musculoskeletal: No Tenderness to Palpation of Joints or Extremities Neurological: Neuro grossly intact Psych/Mental Status: Normal Affect, Appropriate Debridement Note Post-Debridement Measurements/Treatment - Nurse 2 - General Ulcer CM Notes Start: 06/27/18 15:16 Freq: Status: Active Protocol: Activity Type Activity Date Activity User E-Sign Co-Sign Detail Recorded Client Recorded Date Recorded By Document 06/27/18 15:43 [id number] 06/27/18 15:45 06/27/18 15:43 Wound Center Nurse 2 #2 posterior neck -Time 15:44 -Correct Patient Yes -Correct Side, Site, Position Yes -Correct Procedure Yes -Procedure Performed Yes -Type of Procedure Debridement -Clinical Debridement Subcutaneous -Post Debridement Size (cm) - Length 1.3 -Post Debridement Size (cm) - Width 6.3 -Post Debridement Size (cm) - Depth 0.2 -Total Square Cm 8.19 -Wound/Ulcer Outcome Not Healed -Ulcer Cleansing Rinsed/ Irrigated with Saline -Foul Odor after Cleansing No -Bioengineered Tissue No -Bleeding Controlled with Pressure -Offloading No -Treatment Response Procedure Tolerated Well #1abdomen -Correct Patient No -Correct Side, Site, Position No -Correct Procedure No -Procedure Performed No -Post Debridement Size (cm) - Length 0 -Post Debridement Size (cm) - Width 0 -Post Debridement Size (cm) - Depth 0 -Total Square Cm 0 -Wound/Ulcer Outcome Healed- Epithelialized Pain Scale: 0-10 Numeric Is Patient Pain Free? Yes Wound debrided: Posterior neck wound Type of Debridement: Excisional debridement Anesthesia Used: 5% Lidocaine Gel Depth: Down to and including healthy tissue, in the subcutaneous layer Percentage of wound debrided: 100 Instrument Used: 7mm curette Tissue Removed: Subcutaneous tissue and slough Severity: Fat Layer Exposed Amount of bleeding with debridement: Mild Bleeding Controlled with: Pressure, Compression and gauze Patient tolerated procedure well No debridement was completed today - No debridement on her abdominal wound, it is healed. Assessment/Plan Active Problems Nonhealing surgical wound (Acute) Obesity (Chronic) Open wound of abdominal wall with complication (Acute) diabetic abscess wound right lower abdominal wall Open wound of neck with complication (Acute) diabetic abscess wound right posterior neck diabetic abscess wound left posterior neck History of MRSA infection (Chronic) Type 2 diabetes mellitus (Chronic) Assessment: 1. Nonhealing surgical wound. 2. Open wound of abdominal wall with complication. 3. Open wound of neck with complication. 4. Type 2 diabetes mellitus. 5. Obesity Plan: Lower abdominal incision is healed. Debridement of neck wound done as documented above. Procedure was well-tolerated. Will discontinue the wound VAC. Will continue silver alginate (aquacel silver) dressing changes daily to neck opened wound. Encouraged to get into the shower and wash area with soap and water and pat dry well. She has good range of motion with her neck. Since her abdominal wound is healed, encouraged her to massage the scar daily to help soften up the scarring. Also encouraged her to keep this area dry to prevent breakdown of the wound since it is in a skin crease. She is drinking Glucerna for extra protein. She has had some changes in her insulin and her blood sugars are improving. She is trying to keep her blood sugars undercontrol. Her wound cultures Pre op grew Corynebacterium striatum and Actinimyces odontolyticus and Anaerobic cocci. Operative cultures from 05/02/18 Neck showed Staphylococcus epidermidis and abdomen showed now organisms. She completed the Clindamycin. Her Pre-albumin was 15.2 from 05/02/18. Encouraged her to continue her high protein diet and to continue controlling her blood sugars. She is to call with any concerns. Her neuropathy pain has increased since her PCP decreased her cymbalta. She is denying wound pain but is having extreme sensitivity to the area above her abdominal wound. Encouraged her to start to lightly massage the area to see if this helps desensitize it. If she continues to have issues with the myofacial pain, then may consider sending her to PT to help with the desensitization. She is seeing Dr. Oconnor tomorrow for her to be her PCP. Follow up in one week. Code Visit [id number]
[2018-07-04 14:25] VITALS: BP 121/78; PULSE 119; RESP 20; TEMP 36.4; BMI 40.6
--- NOTE | 2018-07-04 16:00 | PN.PCM_ITS ---
(1) Open wound of neck with complication Status: Acute Current Visit: Yes Code(s): S11.90XA - Unspecified open wound of unspecified part of neck, initial encounter Comment: diabetic abscess wound right posterior neck diabetic abscess wound left posterior neck (2) Nonhealing surgical wound Status: Acute Current Visit: Yes Code(s): T81.89XA - Other complications of procedures, not elsewhere classified, initial encounter (3) Open wound of abdominal wall with complication Status: Acute Current Visit: No Code(s): S31.109A - Unspecified open wound of abdominal wall, unspecified quadrant without penetration into peritoneal cavity, initial encounter Comment: diabetic abscess wound right lower abdominal wall (4) History of MRSA infection Status: Chronic Current Visit: Yes Code(s): Z86.14 - Personal history of Methicillin resistant Staphylococcus aureus infection (5) Type 2 diabetes mellitus Status: Chronic Current Visit: Yes Qualifiers: Code(s): E11.9 - Type 2 diabetes mellitus without complications (6) Obesity Status: Chronic Current Visit: Yes Code(s): E66.9 - Obesity, unspecified Type of Wound Date of Service: 07/04/18 Chief Complaint: Follow-up surgical wound and VAC management. History of Wound: On 05/02/18 patient under went a surgical preparation posterior neck with incision and drainage and excisional debridement multiple necrotizing diabetic abscess wounds (45 cm2) and a surgical preparation right lower abdominal wall with incision and drainage and excisional debridement skin and subcutaneous tissue for necrotizing soft tissue diabetic abscess wound (231 cm2). She no longer wishes to have the wound VAC, will discontinue. She will continue to apply a silver alginate dressing daily to her opened wounds. Her wounds are healing well. She feels denies fever, chills and states her appetite is well. She has been drinking glucerna daily. Her abdominal wound remains healed. Progress of Wound: Neck wound improving. Abdominal wound remains healed. - Physical Exam Vital Signs Temp Pulse Resp BP 97.6 F L 119 H 20 H 121/78 H 07/04/18 14:25 07/04/18 14:25 07/04/18 14:25 07/04/18 14:25 General: Alert, Oriented x3, Cooperative HEENT: Atraumatic Oral: Moist Mucosa Neck: Supple, - - Good range of motion of neck Lungs: Normal air movement Cardiovascular: Regular rate Extremities: No edema, Capillary Refill Less than 3 Seconds Skin: Ulcer/ Wound - posterior neck wound Wound Measurements and Assessment WC - Nurse 1 - General Ulcer Measurement Start: 06/27/18 15:16 Freq: Status: Active Protocol: Activity Type Activity Date Activity User E-Sign Co-Sign Detail Recorded Client Recorded Date Recorded By Document 07/04/18 14:25 [email or web address] [id number] 07/04/18 14:30 DL 07/04/18 14:25 Wound Center Nurse 1 [Ulcer Assessment] #2 posterior neck -Current Size (cm) - Length 1.1 -Current Size (cm) - Width 4.9 -Current Size (cm) - Depth 0.2 -Total Square Cm 5.39 -Photo Taken No -Tunneling No -Undermining/Tunneling No -Exudate Amt Small -Exudate Type Serosanguineous -Wound Margin Distinct, Outline Attached -Granulation Amt Large (67-100%) -Granulation Quality [place] -Necrosis Amt None Present (0 %) -Structure Exposed N/A -Texture (Yumiko-wound Skin Appearance) Scarring -Moisture (Yumiko-wound Skin Appearance No Abnormality ) -Color (Yumiko-wound Skin Appearance) No Abnormality -Temperature (Yumiko-wound Skin No Abnormality Appearance) (Pt Warm) -Ulcer Cleansing Rinsed/ Irrigated with Saline -Foul Odor after Cleansing No -Anesthetic Used 5% Lidocaine Gel - Nurse 2 - General Ulcer CM Notes Start: 06/27/18 15:16 Freq: Status: Active Protocol: Activity Type Activity Date Activity User E-Sign Co-Sign Detail Recorded Client Recorded Date Recorded By Document 07/04/18 14:51 TRES [id number] 07/04/18 14:52 TRES 07/04/18 14:51 Wound Center Nurse 2 [Procedure/Treatment] -Time 14:52 -Correct Patient Yes -Correct Side, Site, Position Yes -Correct Procedure Yes -Procedure Performed Yes -Type of Procedure Debridement -Clinical Debridement Subcutaneous -Post Debridement Size (cm) - Length 1.7 -Post Debridement Size (cm) - Width 5.3 -Post Debridement Size (cm) - Depth 0.1 -Total Square Cm 9.01 -Wound/Ulcer Outcome Not Healed -Ulcer Cleansing Rinsed/ Irrigated with Saline -Foul Odor after Cleansing No -Bioengineered Tissue No -Bleeding Controlled with Pressure -Offloading No -Treatment Response Procedure Tolerated Well [See Physician Procedure note for Specifics] Pain Scale: 0-10 Numeric [Pain] -Is Patient Pain Free? Yes Musculoskeletal: No Tenderness to Palpation of Joints or Extremities Neurological: Neuro grossly intact Psych/Mental Status: Normal Affect, Appropriate Debridement Note Post-Debridement Measurements/Treatment WC - Nurse 2 - General Ulcer CM Notes Start: 06/27/18 15:16 Freq: Status: Active Protocol: Activity Type Activity Date Activity User E-Sign Co-Sign Detail Recorded Client Recorded Date Recorded By Document 06/27/18 15:43 [id number] 06/27/18 15:45 Document 07/04/18 14:51 [id number] 07/04/18 14:52 06/27/18 07/04/18 15:43 14:51 Wound Center Nurse 2 #2 posterior neck -Time 15:44 14:52 -Correct Patient Yes Yes -Correct Side, Site, Position Yes Yes -Correct Procedure Yes Yes -Procedure Performed Yes Yes -Type of Procedure Debridement Debridement -Clinical Debridement Subcutaneous Subcutaneous -Post Debridement Size (cm) - Length 1.3 1.7 -Post Debridement Size (cm) - Width 6.3 5.3 -Post Debridement Size (cm) - Depth 0.2 0.1 -Total Square Cm 8.19 9.01 -Wound/Ulcer Outcome Not Healed Not Healed -Ulcer Cleansing Rinsed/ Rinsed/ Irrigated with Irrigated with Saline Saline -Foul Odor after Cleansing No No -Bioengineered Tissue No No -Bleeding Controlled with Pressure Pressure -Offloading No No -Treatment Response Procedure Procedure Tolerated Well Tolerated Well #1abdomen -Correct Patient No -Correct Side, Site, Position No -Correct Procedure No -Procedure Performed No -Post Debridement Size (cm) - Length 0 -Post Debridement Size (cm) - Width 0 -Post Debridement Size (cm) - Depth 0 -Total Square Cm 0 -Wound/Ulcer Outcome Healed- Epithelialized Pain Scale: 0-10 Numeric Is Patient Pain Free? Yes Yes Wound debrided: posterior neck Laterality: Not Applicable Type of Debridement: Excisional debridement Anesthesia Used: 5% Lidocaine Gel Depth: Down to and including healthy tissue, in the subcutaneous layer Percentage of wound debrided: 100 Instrument Used: 7mm curette Tissue Removed: Subcutaneous tissue and slough Severity: Fat Layer Exposed Amount of bleeding with debridement: Mild Bleeding Controlled with: Pressure, Compression and gauze Patient tolerated procedure well Assessment/Plan Active Problems (Last Updated 06/28/18 @ 16:19 by Shayla Balderas) Nonhealing surgical wound (Acute) Obesity (Chronic) Open wound of neck with complication (Acute) diabetic abscess wound right posterior neck diabetic abscess wound left posterior neck History of MRSA infection (Chronic) Type 2 diabetes mellitus (Chronic) Assessment: 1. Nonhealing surgical wound. 2. Open wound of abdominal wall with complication- healed. 3. Open wound of neck with complication. 4. Type 2 diabetes mellitus. 5. Obesity Plan: Lower abdominal incision is healed. Debridement of neck wound done as documented above. Procedure was well-tolerated. Will continue silver alginate (aquacel silver) dressing changes daily to neck opened wound. Encouraged to get into the shower and wash area with soap and water and pat dry well. She has good range of motion with her neck. Since her abdominal wound is healed, encouraged her to massage the scar daily to help soften up the scarring. Also encouraged her to keep this area dry to prevent breakdown of the wound since it is in a skin crease. She is drinking Glucerna for extra protein. She has had some changes in her insulin and her blood sugars are improving. She is trying to keep her blood sugars undercontrol. Her wound cultures Pre op grew Corynebacterium striatum and Actinimyces odontolyticus and Anaerobic cocci. Operative cultures from 05/02/18 Neck showed Staphylococcus epidermidis and abdomen showed now organisms. She completed the Clindamycin. Her Pre-albumin was 15.2 from 05/02/18. Encouraged her to continue her high protein diet and to continue controlling her blood sugars. She is to call with any concerns. Her neuropathy pain has increased since her PCP decreased her cymbalta. She is denying wound pain but is having extreme sensitivity to the area above her abdominal wound. Encouraged her to start to lightly massage the area to see if this helps desensitize it. If she continues to have issues with the myofacial pain, then may consider sending her to PT to help with the desensitization. Follow up in one week. Code Visit [id number]
[2018-07-11 14:42] VITALS: BP 129/94; PULSE 122; RESP 18; TEMP 36.5; BMI 40.6
--- NOTE | 2018-07-11 16:17 | PCM.WC.PN ---
(1) Open wound of neck with complication Status: Acute Current Visit: Yes Code(s): S11.90XA - Unspecified open wound of unspecified part of neck, initial encounter Comment: diabetic abscess wound right posterior neck diabetic abscess wound left posterior neck (2) Nonhealing surgical wound Status: Acute Current Visit: Yes Code(s): T81.89XA - Other complications of procedures, not elsewhere classified, initial encounter (3) Open wound of abdominal wall with complication Status: Resolved Current Visit: Yes Code(s): S31.109A - Unspecified open wound of abdominal wall, unspecified quadrant without penetration into peritoneal cavity, initial encounter Comment: diabetic abscess wound right lower abdominal wall (4) History of MRSA infection Status: Chronic Current Visit: Yes Code(s): Z86.14 - Personal history of Methicillin resistant Staphylococcus aureus infection (5) Type 2 diabetes mellitus Status: Chronic Current Visit: Yes Qualifiers: Code(s): E11.9 - Type 2 diabetes mellitus without complications (6) Obesity Status: Chronic Current Visit: Yes Code(s): E66.9 - Obesity, unspecified Type of Wound Date of Service: 07/11/18 Chief Complaint: Follow-up surgical wound and VAC management. History of Wound: On 05/02/18 patient under went a surgical preparation posterior neck with incision and drainage and excisional debridement multiple necrotizing diabetic abscess wounds (45 cm2) and a surgical preparation right lower abdominal wall with incision and drainage and excisional debridement skin and subcutaneous tissue for necrotizing soft tissue diabetic abscess wound (231 cm2). She no longer wishes to have the wound VAC, will discontinue. She will continue to apply a silver alginate dressing daily to her opened wounds. Her wounds are healing well. She feels denies fever, chills and states her appetite is well. She has been drinking glucerna daily. Her abdominal wound remains healed. Progress of Wound: Neck wound improving. Abdominal wound remains healed. - Physical Exam Vital Signs Temp Pulse Resp BP 97.7 F L 122 H 18 129/94 H 07/11/18 14:42 07/11/18 14:42 07/11/18 14:42 07/11/18 14:42 General: Alert, Oriented x3, Cooperative HEENT: Atraumatic Oral: Moist Mucosa Neck: Supple Lungs: Normal air movement Cardiovascular: Regular rate Extremities: No edema, Capillary Refill Less than 3 Seconds Skin: Ulcer/ Wound - posterior neck Wound Measurements and Assessment - Nurse 1 - General Ulcer Measurement Start: 06/27/18 15:16 Freq: Status: Active Protocol: Activity Type Activity Date Activity User E-Sign Co-Sign Detail Recorded Client Recorded Date Recorded By Document 07/11/18 14:42 RB [id number] 07/11/18 14:44 RB 07/11/18 14:42 Wound Center Nurse 1 [Ulcer Assessment] #2 posterior neck -Combined with other wound No -Current Size (cm) - Length 1.2 -Current Size (cm) - Width 4.1 -Current Size (cm) - Depth 0.1 -Total Square Cm 4.92 -Photo Taken No -Tunneling No -Undermining/Tunneling No -Circular Undermining No -Exudate Amt Small -Exudate Type Serosanguineous -Wound Margin Distinct, Outline Attached -Granulation Amt Medium (34-66%) -Granulation Quality [place] Red -Slough/Fibrin Yes -Necrosis Amt Small (1-33%) -Necrotic Tissue Type Adherent Slough -Structure Exposed N/A -Texture (Yumiko-wound Skin Appearance) Assessed Scarring -Moisture (Yumiko-wound Skin Appearance Assessed ) -Color (Yumiko-wound Skin Appearance) Assessed -Temperature (Yumiko-wound Skin No Abnormality Appearance) (Pt Warm) -Tenderness on Palpation (Yumiko-wound No Skin Appearance) -Ulcer Cleansing Wound Cleanser -Foul Odor after Cleansing No -Anesthetic Used 4% Lidocaine Solution - Nurse 2 - General Ulcer CM Notes Start: 06/27/18 15:16 Freq: Status: Active Protocol: Activity Type Activity Date Activity User E-Sign Co-Sign Detail Recorded Client Recorded Date Recorded By Document 07/11/18 15:13 [id number] 07/11/18 15:14 TRES 07/11/18 15:13 Wound Center Nurse 2 [Procedure/Treatment] -Time 15:14 -Correct Patient Yes -Correct Side, Site, Position Yes -Correct Procedure Yes -Procedure Performed Yes -Type of Procedure Debridement -Clinical Debridement Subcutaneous -Post Debridement Size (cm) - Length 1.3 -Post Debridement Size (cm) - Width 4.4 -Post Debridement Size (cm) - Depth 0.1 -Total Square Cm 5.72 -Wound/Ulcer Outcome Not Healed -Ulcer Cleansing Rinsed/ Irrigated with Saline -Foul Odor after Cleansing No -Bioengineered Tissue No -Bleeding Controlled with Pressure -Offloading No -Treatment Response Procedure Tolerated Well [See Physician Procedure note for Specifics] Pain Scale: 0-10 Numeric [Pain] -Is Patient Pain Free? Yes Musculoskeletal: No Tenderness to Palpation of Joints or Extremities Neurological: Neuro grossly intact Psych/Mental Status: Normal Affect, Appropriate Debridement Note Post-Debridement Measurements/Treatment WC - Nurse 2 - General Ulcer CM Notes Start: 06/27/18 15:16 Freq: Status: Active Protocol: Activity Type Activity Date Activity User E-Sign Co-Sign Detail Recorded Client Recorded Date Recorded By Document 06/27/18 15:43 [id number] 06/27/18 15:45 Document 07/04/18 14:51 [id number] 07/04/18 14:52 Document 07/11/18 15:13 [id number] 07/11/18 15:14 06/27/18 07/04/18 07/11/18 15:43 14:51 15:13 Wound Center Nurse 2 #2 posterior neck -Time 15:44 14:52 15:14 -Correct Patient Yes Yes Yes -Correct Side, Site, Position Yes Yes Yes -Correct Procedure Yes Yes Yes -Procedure Performed Yes Yes Yes -Type of Procedure Debridement Debridement Debridement -Clinical Debridement Subcutaneous Subcutaneous Subcutaneous -Post Debridement Size (cm) - Length 1.3 1.7 1.3 -Post Debridement Size (cm) - Width 6.3 5.3 4.4 -Post Debridement Size (cm) - Depth 0.2 0.1 0.1 -Total Square Cm 8.19 9.01 5.72 -Wound/Ulcer Outcome Not Healed Not Healed Not Healed -Ulcer Cleansing Rinsed/ Rinsed/ Rinsed/ Irrigated with Irrigated with Irrigated with Saline Saline Saline -Foul Odor after Cleansing No No No -Bioengineered Tissue No No No -Bleeding Controlled with Pressure Pressure Pressure -Offloading No No No -Treatment Response Procedure Procedure Procedure Tolerated Well Tolerated Well Tolerated Well #1abdomen -Correct Patient No -Correct Side, Site, Position No -Correct Procedure No -Procedure Performed No -Post Debridement Size (cm) - Length 0 -Post Debridement Size (cm) - Width 0 -Post Debridement Size (cm) - Depth 0 -Total Square Cm 0 -Wound/Ulcer Outcome Healed- Epithelialized Pain Scale: 0-10 Numeric Is Patient Pain Free? Yes Yes Yes Wound debrided: posterior neck wound Laterality: Not Applicable Type of Debridement: Excisional debridement Anesthesia Used: 5% Lidocaine Gel Depth: Down to and including healthy tissue, in the subcutaneous layer Percentage of wound debrided: 100 Instrument Used: 5mm curette Tissue Removed: Subcutaneous tissue and slough Severity: Limited To Skin Breakdown Amount of bleeding with debridement: Mild Bleeding Controlled with: Pressure Patient tolerated procedure well Assessment/Plan Active Problems (Last Updated 06/28/18 @ 16:19 by Shayla Balderas) Nonhealing surgical wound (Acute) Obesity (Chronic) Open wound of neck with complication (Acute) diabetic abscess wound right posterior neck diabetic abscess wound left posterior neck History of MRSA infection (Chronic) Type 2 diabetes mellitus (Chronic) Assessment: 1. Nonhealing surgical wound. 2. Open wound of abdominal wall with complication- healed. 3. Open wound of neck with complication. 4. Type 2 diabetes mellitus. 5. Obesity Plan: Lower abdominal incision is healed. Debridement of neck wound done as documented above. Procedure was well-tolerated. Will continue silver alginate (aquacel silver) dressing changes daily to neck opened wound. Encouraged to get into the shower and wash area with soap and water and pat dry well. She has good range of motion with her neck. Since her abdominal wound is healed, encouraged her to massage the scar daily to help soften up the scarring. Also encouraged her to keep this area dry to prevent breakdown of the wound since it is in a skin crease. She may need to place dry gauze in the area with warmer weather approaching. She is drinking Glucerna for extra protein. She has had some changes in her insulin and her blood sugars are improving. She is trying to keep her blood sugars undercontrol. Her wound cultures Pre op grew Corynebacterium striatum and Actinimyces odontolyticus and Anaerobic cocci. Operative cultures from 05/02/18 Neck showed Staphylococcus epidermidis and abdomen showed now organisms. She completed the Clindamycin. Her Pre-albumin was 15.2 from 05/02/18. Encouraged her to continue her high protein diet and to continue controlling her blood sugars. She is to call with any concerns. Her neuropathy pain has increased since her PCP decreased her cymbalta. She is denying wound pain but is having extreme sensitivity to the area above her abdominal wound. Encouraged her to start to lightly massage the area to see if this helps desensitize it. If she continues to have issues with the myofacial pain, then may consider sending her to PT to help with the desensitization. Follow up in one week. Code Visit [id number]: [id number] Jaylyn subq tissue 20 sq cm/<
--- NOTE | 2018-07-11 16:21 | PN.PCM_ITS ---
(1) Open wound of neck with complication Status: Acute Current Visit: Yes Code(s): S11.90XA - Unspecified open wound of unspecified part of neck, initial encounter Comment: diabetic abscess wound right posterior neck diabetic abscess wound left posterior neck (2) Nonhealing surgical wound Status: Acute Current Visit: Yes Code(s): T81.89XA - Other complications of procedures, not elsewhere classified, initial encounter (3) Open wound of abdominal wall with complication Status: Resolved Current Visit: Yes Code(s): S31.109A - Unspecified open wound of abdominal wall, unspecified quadrant without penetration into peritoneal cavity, initial encounter Comment: diabetic abscess wound right lower abdominal wall (4) History of MRSA infection Status: Chronic Current Visit: Yes Code(s): Z86.14 - Personal history of Methicillin resistant Staphylococcus aureus infection (5) Type 2 diabetes mellitus Status: Chronic Current Visit: Yes Qualifiers: Code(s): E11.9 - Type 2 diabetes mellitus without complications (6) Obesity Status: Chronic Current Visit: Yes Code(s): E66.9 - Obesity, unspecified Type of Wound Date of Service: 07/11/18 Chief Complaint: Follow-up surgical wound and VAC management. History of Wound: On 05/02/18 patient under went a surgical preparation posterior neck with incision and drainage and excisional debridement multiple necrotizing diabetic abscess wounds (45 cm2) and a surgical preparation right lower abdominal wall with incision and drainage and excisional debridement skin and subcutaneous tissue for necrotizing soft tissue diabetic abscess wound (231 cm2). She no longer wishes to have the wound VAC, will discontinue. She will continue to apply a silver alginate dressing daily to her opened wounds. Her wounds are healing well. She feels denies fever, chills and states her appetite is well. She has been drinking glucerna daily. Her abdominal wound remains healed. Progress of Wound: Neck wound improving. Abdominal wound remains healed. - Physical Exam Vital Signs Temp Pulse Resp BP 97.7 F L 122 H 18 129/94 H 07/11/18 14:42 07/11/18 14:42 07/11/18 14:42 07/11/18 14:42 General: Alert, Oriented x3, Cooperative HEENT: Atraumatic Oral: Moist Mucosa Neck: Supple Lungs: Normal air movement Cardiovascular: Regular rate Extremities: No edema, Capillary Refill Less than 3 Seconds Skin: Ulcer/ Wound - posterior neck Wound Measurements and Assessment - Nurse 1 - General Ulcer Measurement Start: 06/27/18 15:16 Freq: Status: Active Protocol: Activity Type Activity Date Activity User E-Sign Co-Sign Detail Recorded Client Recorded Date Recorded By Document 07/11/18 14:42 RB [id number] 07/11/18 14:44 RB 07/11/18 14:42 Wound Center Nurse 1 [Ulcer Assessment] #2 posterior neck -Combined with other wound No -Current Size (cm) - Length 1.2 -Current Size (cm) - Width 4.1 -Current Size (cm) - Depth 0.1 -Total Square Cm 4.92 -Photo Taken No -Tunneling No -Undermining/Tunneling No -Circular Undermining No -Exudate Amt Small -Exudate Type Serosanguineous -Wound Margin Distinct, Outline Attached -Granulation Amt Medium (34-66%) -Granulation Quality Ezel Red -Slough/Fibrin Yes -Necrosis Amt Small (1-33%) -Necrotic Tissue Type Adherent Slough -Structure Exposed N/A -Texture (Yumiko-wound Skin Appearance) Assessed Scarring -Moisture (Yumiko-wound Skin Appearance Assessed ) -Color (Yumiko-wound Skin Appearance) Assessed -Temperature (Yumiko-wound Skin No Abnormality Appearance) (Pt Warm) -Tenderness on Palpation (Yumiko-wound No Skin Appearance) -Ulcer Cleansing Wound Cleanser -Foul Odor after Cleansing No -Anesthetic Used 4% Lidocaine Solution - Nurse 2 - General Ulcer CM Notes Start: 06/27/18 15:16 Freq: Status: Active Protocol: Activity Type Activity Date Activity User E-Sign Co-Sign Detail Recorded Client Recorded Date Recorded By Document 07/11/18 15:13 [id number] 07/11/18 15:14 TRES 07/11/18 15:13 Wound Center Nurse 2 [Procedure/Treatment] -Time 15:14 -Correct Patient Yes -Correct Side, Site, Position Yes -Correct Procedure Yes -Procedure Performed Yes -Type of Procedure Debridement -Clinical Debridement Subcutaneous -Post Debridement Size (cm) - Length 1.3 -Post Debridement Size (cm) - Width 4.4 -Post Debridement Size (cm) - Depth 0.1 -Total Square Cm 5.72 -Wound/Ulcer Outcome Not Healed -Ulcer Cleansing Rinsed/ Irrigated with Saline -Foul Odor after Cleansing No -Bioengineered Tissue No -Bleeding Controlled with Pressure -Offloading No -Treatment Response Procedure Tolerated Well [See Physician Procedure note for Specifics] Pain Scale: 0-10 Numeric [Pain] -Is Patient Pain Free? Yes Musculoskeletal: No Tenderness to Palpation of Joints or Extremities Neurological: Neuro grossly intact Psych/Mental Status: Normal Affect, Appropriate Debridement Note Post-Debridement Measurements/Treatment WC - Nurse 2 - General Ulcer CM Notes Start: 06/27/18 15:16 Freq: Status: Active Protocol: Activity Type Activity Date Activity User E-Sign Co-Sign Detail Recorded Client Recorded Date Recorded By Document 06/27/18 15:43 [id number] 06/27/18 15:45 Document 07/04/18 14:51 [id number] 07/04/18 14:52 Document 07/11/18 15:13 [id number] 07/11/18 15:14 06/27/18 07/04/18 07/11/18 15:43 14:51 15:13 Wound Center Nurse 2 #2 posterior neck -Time 15:44 14:52 15:14 -Correct Patient Yes Yes Yes -Correct Side, Site, Position Yes Yes Yes -Correct Procedure Yes Yes Yes -Procedure Performed Yes Yes Yes -Type of Procedure Debridement Debridement Debridement -Clinical Debridement Subcutaneous Subcutaneous Subcutaneous -Post Debridement Size (cm) - Length 1.3 1.7 1.3 -Post Debridement Size (cm) - Width 6.3 5.3 4.4 -Post Debridement Size (cm) - Depth 0.2 0.1 0.1 -Total Square Cm 8.19 9.01 5.72 -Wound/Ulcer Outcome Not Healed Not Healed Not Healed -Ulcer Cleansing Rinsed/ Rinsed/ Rinsed/ Irrigated with Irrigated with Irrigated with Saline Saline Saline -Foul Odor after Cleansing No No No -Bioengineered Tissue No No No -Bleeding Controlled with Pressure Pressure Pressure -Offloading No No No -Treatment Response Procedure Procedure Procedure Tolerated Well Tolerated Well Tolerated Well #[id number] -Correct Patient No -Correct Side, Site, Position No -Correct Procedure No -Procedure Performed No -Post Debridement Size (cm) - Length 0 -Post Debridement Size (cm) - Width 0 -Post Debridement Size (cm) - Depth 0 -Total Square Cm 0 -Wound/Ulcer Outcome Healed- Epithelialized Pain Scale: 0-10 Numeric Is Patient Pain Free? Yes Yes Yes Wound debrided: posterior neck wound Laterality: Not Applicable Type of Debridement: Excisional debridement Anesthesia Used: 5% Lidocaine Gel Depth: Down to and including healthy tissue, in the subcutaneous layer Percentage of wound debrided: 100 Instrument Used: 5mm curette Tissue Removed: Subcutaneous tissue and slough Severity: Limited To Skin Breakdown Amount of bleeding with debridement: Mild Bleeding Controlled with: Pressure Patient tolerated procedure well Assessment/Plan Active Problems (Last Updated 06/28/18 @ 16:19 by Shayla Balderas) Nonhealing surgical wound (Acute) Obesity (Chronic) Open wound of neck with complication (Acute) diabetic abscess wound right posterior neck diabetic abscess wound left posterior neck History of MRSA infection (Chronic) Type 2 diabetes mellitus (Chronic) Assessment: 1. Nonhealing surgical wound. 2. Open wound of abdominal wall with complication- healed. 3. Open wound of neck with complication. 4. Type 2 diabetes mellitus. 5. Obesity Plan: Lower abdominal incision is healed. Debridement of neck wound done as documented above. Procedure was well-tolerated. Will continue silver alginate (aquacel silver) dressing changes daily to neck opened wound. Encouraged to get into the shower and wash area with soap and water and pat dry well. She has good range of motion with her neck. Since her abdominal wound is healed, encouraged her to massage the scar daily to help soften up the scarring. Also encouraged her to keep this area dry to prevent breakdown of the wound since it is in a skin crease. She may need to place dry gauze in the area with warmer weather approaching. She is drinking Glucerna for extra protein. She has had some changes in her insulin and her blood sugars are improving. She is trying to keep her blood sugars undercontrol. Her wound cultures Pre op grew Corynebacterium striatum and Actinimyces odontolyticus and Anaerobic cocci. Operative cultures from 05/02/18 Neck showed Staphylococcus epidermidis and abdom en showed now organisms. She completed the Clindamycin. Her Pre-albumin was 15.2 from 05/02/18. Encouraged her to continue her high protein diet and to continue controlling her blood sugars. She is to call with any concerns. Her neuropathy pain has increased since her PCP decreased her cymbalta. She is denying wound pain but is having extreme sensitivity to the area above her abdominal wound. Encouraged her to start to lightly massage the area to see if this helps desensitize it. If she continues to have issues with the myofacial pain, then may consider sending her to PT to help with the desensitization. Follow up in one week. Code Visit 111xxx-113xx: [id number] Jaylyn subq tissue 20 sq cm/<
[2018-07-18 15:02] VITALS: BP 124/92; RESP 18; TEMP 36.7; BMI 40.6
--- NOTE | 2018-07-18 17:09 | PCM.WC.PN ---
(1) Open wound of neck with complication Status: Chronic Current Visit: Yes Code(s): S11.90XA - Unspecified open wound of unspecified part of neck, initial encounter Comment: diabetic abscess wound right posterior neck diabetic abscess wound left posterior neck (2) Nonhealing surgical wound Status: Chronic Current Visit: Yes Code(s): T81.89XA - Other complications of procedures, not elsewhere classified, initial encounter (3) Open wound of abdominal wall with complication Status: Chronic Current Visit: Yes Code(s): S31.109A - Unspecified open wound of abdominal wall, unspecified quadrant without penetration into peritoneal cavity, initial encounter Comment: diabetic abscess wound right lower abdominal wall (4) History of MRSA infection Status: Chronic Current Visit: Yes Code(s): Z86.14 - Personal history of Methicillin resistant Staphylococcus aureus infection (5) Type 2 diabetes mellitus Status: Chronic Current Visit: Yes Qualifiers: Code(s): E11.9 - Type 2 diabetes mellitus without complications (6) Obesity Status: Chronic Current Visit: Yes Code(s): E66.9 - Obesity, unspecified Type of Wound Date of Service: 07/18/18 Chief Complaint: Follow-up surgical wound and VAC management. History of Wound: On 05/02/18 patient under went a surgical preparation posterior neck with incision and drainage and excisional debridement multiple necrotizing diabetic abscess wounds (45 cm2) and a surgical preparation right lower abdominal wall with incision and drainage and excisional debridement skin and subcutaneous tissue for necrotizing soft tissue diabetic abscess wound (231 cm2). She no longer wishes to have the wound VAC, will discontinue. She will continue to apply a silver alginate dressing daily to her opened wounds. Her wounds are healing well. She feels denies fever, chills and states her appetite is well. She has been drinking glucerna daily. Her abdominal wound remains healed. Progress of Wound: Neck wound improving. - Physical Exam Vital Signs Temp Pulse Resp BP 98.0 F 122 H 18 124/92 H 07/18/18 15:02 07/11/18 14:42 07/18/18 15:02 07/18/18 15:02 General: Alert, Oriented x3, Cooperative HEENT: Atraumatic Oral: Moist Mucosa Lungs: Normal air movement Cardiovascular: Regular rate Extremities: No edema, Capillary Refill Less than 3 Seconds Skin: Ulcer/ Wound - posterior neck Wound Measurements and Assessment WC - Nurse 1 - General Ulcer Measurement Start: 06/27/18 15:16 Freq: Status: Active Protocol: Activity Type Activity Date Activity User E-Sign Co-Sign Detail Recorded Client Recorded Date Recorded By Document 07/18/18 15:02 GRANT [id number] 07/18/18 15:14 GRANT 07/18/18 15:02 Wound Center Nurse 1 [Ulcer Assessment] #2 posterior neck -Combined with other wound No -Current Size (cm) - Length 2.3 -Current Size (cm) - Width 0.7 -Current Size (cm) - Depth 0.1 -Total Square Cm 1.61 -Photo Taken No -Tunneling No -Undermining/Tunneling No -Circular Undermining No -Classification - Thickness Full Thickness without Exposed Support Structure -Exudate Amt Medium -Exudate Type Serous -Wound Margin Flat & Intact -Granulation Amt Medium (34-66%) -Granulation Quality Red -Slough/Fibrin Yes -Necrosis Amt Small (1-33%) -Necrotic Tissue Type Adherent Slough -Structure Exposed None/Limited to Skin Breakdown -Texture (Yumiko-wound Skin Appearance) No Abnormality Assessed -Moisture (Yumiko-wound Skin Appearance Assessed ) Weeping -Color (Yumiko-wound Skin Appearance) Assessed Mottled -Temperature (Yumiko-wound Skin No Abnormality Appearance) (Pt Warm) -Tenderness on Palpation (Yumiko-wound No Skin Appearance) -Ulcer Cleansing Rinsed/ Irrigated with Saline -Foul Odor after Cleansing No -Anesthetic Used 4% Lidocaine Solution - Nurse 2 - General Ulcer CM Notes Start: 06/27/18 15:16 Freq: Status: Active Protocol: Activity Type Activity Date Activity User E-Sign Co-Sign Detail Recorded Client Recorded Date Recorded By Document 07/18/18 15:21 TRES [id number] 07/18/18 15:22 TRES 07/18/18 15:21 Wound Center Nurse 2 [Procedure/Treatment] -Time 15:21 -Correct Patient Yes -Correct Side, Site, Position Yes -Correct Procedure Yes -Procedure Performed Yes -Type of Procedure Debridement -Clinical Debridement Subcutaneous -Post Debridement Size (cm) - Length 0.7 -Post Debridement Size (cm) - Width 2.2 -Post Debridement Size (cm) - Depth 0.2 -Total Square Cm 1.54 -Wound/Ulcer Outcome Not Healed -Ulcer Cleansing Rinsed/ Irrigated with Saline -Foul Odor after Cleansing No -Bioengineered Tissue No -Bleeding Controlled with Pressure -Offloading No -Treatment Response Procedure Tolerated Well [See Physician Procedure note for Specifics] Pain Scale: 0-10 Numeric [Pain] -Is Patient Pain Free? Yes Musculoskeletal: No Tenderness to Palpation of Joints or Extremities Neurological: Neuro grossly intact Psych/Mental Status: Normal Affect, Appropriate Debridement Note Post-Debridement Measurements/Treatment WC - Nurse 2 - General Ulcer CM Notes Start: 06/27/18 15:16 Freq: Status: Active Protocol: Activity Type Activity Date Activity User E-Sign Co-Sign Detail Recorded Client Recorded Date Recorded By Document 06/27/18 15:43 [id number] 06/27/18 15:45 Document 07/04/18 14:51 [id number] 07/04/18 14:52 Document 07/11/18 15:13 [id number] 07/11/18 15:14 Document 07/18/18 15:21 [id number] 07/18/18 15:22 06/27/18 07/04/18 07/11/18 15:43 14:51 15:13 Wound Center Nurse 2 #2 posterior neck -Time 15:44 14:52 15:14 -Correct Patient Yes Yes Yes -Correct Side, Site, Position Yes Yes Yes -Correct Procedure Yes Yes Yes -Procedure Performed Yes Yes Yes -Type of Procedure Debridement Debridement Debridement -Clinical Debridement Subcutaneous Subcutaneous Subcutaneous -Post Debridement Size (cm) - Length 1.3 1.7 1.3 -Post Debridement Size (cm) - Width 6.3 5.3 4.4 -Post Debridement Size (cm) - Depth 0.2 0.1 0.1 -Total Square Cm 8.19 9.01 5.72 -Wound/Ulcer Outcome Not Healed Not Healed Not Healed -Ulcer Cleansing Rinsed/ Rinsed/ Rinsed/ Irrigated with Irrigated with Irrigated with Saline Saline Saline -Foul Odor after Cleansing No No No -Bioengineered Tissue No No No -Bleeding Controlled with Pressure Pressure Pressure -Offloading No No No -Treatment Response Procedure Procedure Procedure Tolerated Well Tolerated Well Tolerated Well #1abdomen -Correct Patient No -Correct Side, Site, Position No -Correct Procedure No -Procedure Performed No -Post Debridement Size (cm) - Length 0 -Post Debridement Size (cm) - Width 0 -Post Debridement Size (cm) - Depth 0 -Total Square Cm 0 -Wound/Ulcer Outcome Healed- Epithelialized Pain Scale: 0-10 Numeric Is Patient Pain Free? Yes Yes Yes 07/18/18 15:21 Wound Center Nurse 2 #2 posterior neck -Time 15:21 -Correct Patient Yes -Correct Side, Site, Position Yes -Correct Procedure Yes -Procedure Performed Yes -Type of Procedure Debridement -Clinical Debridement Subcutaneous -Post Debridement Size (cm) - Length 0.7 -Post Debridement Size (cm) - Width 2.2 -Post Debridement Size (cm) - Depth 0.2 -Total Square Cm 1.54 -Wound/Ulcer Outcome Not Healed -Ulcer Cleansing Rinsed/ Irrigated with Saline -Foul Odor after Cleansing No -Bioengineered Tissue No -Bleeding Controlled with Pressure -Offloading No -Treatment Response Procedure Tolerated Well #1abdomen -Correct Patient -Correct Side, Site, Position -Correct Procedure -Procedure Performed -Post Debridement Size (cm) - Length -Post Debridement Size (cm) - Width -Post Debridement Size (cm) - Depth -Total Square Cm -Wound/Ulcer Outcome Pain Scale: 0-10 Numeric Is Patient Pain Free? Yes Wound debrided: posterior neck Type of Debridement: Excisional debridement Anesthesia Used: 4% Lidocaine Solution Depth: Down to and including healthy tissue, in the subcutaneous layer Percentage of wound debrided: 100 Instrument Used: 5mm curette Tissue Removed: Subcutaneous tissue and slough Severity: Fat Layer Exposed Amount of bleeding with debridement: Mild Bleeding Controlled with: Pressure Patient tolerated procedure well Assessment/Plan Active Problems (Last Updated 06/28/18 @ 16:19 by Shayla Balderas) Nonhealing surgical wound (Chronic) Obesity (Chronic) Open wound of abdominal wall with complication (Chronic) diabetic abscess wound right lower abdominal wall Open wound of neck with complication (Chronic) diabetic abscess wound right posterior neck diabetic abscess wound left posterior neck History of MRSA infection (Chronic) Type 2 diabetes mellitus (Chronic) Assessment: 1. Nonhealing surgical wound. 2. Open wound of abdominal wall with complication- healed. 3. Open wound of neck with complication. 4. Type 2 diabetes mellitus. 5. Obesity Plan: Lower abdominal incision is healed but she is having issues keeping the area dry. Encouraged her to place a strip of aquacel-ag dressing in the crease to keep it dry. Debridement of neck wound done as documented above. Procedure was well-tolerated. Will continue silver alginate (aquacel silver) dressing changes daily to neck opened wound. Encouraged to get into the shower and wash area with soap and water and pat dry well. She has good range of motion with her neck. Since her abdominal wound is healed, encouraged her to massage the scar daily to help soften up the scarring. Also encouraged her to keep this area dry to prevent breakdown of the wound since it is in a skin crease.She is drinking Glucerna for extra protein. She has had some changes in her insulin and her blood sugars are improving. She is trying to keep her blood sugars undercontrol. Her wound cultures Pre op grew Corynebacterium striatum and Actinimyces odontolyticus and Anaerobic cocci. Operative cultures from 05/02/18 Neck showed Staphylococcus epidermidis and abdomen showed now organisms. She completed the Clindamycin. Her Pre-albumin was 15.2 from 05/02/18. Encouraged her to continue her high protein diet and to continue controlling her blood sugars. She is to call with any concerns. Her neuropathy pain has increased since her PCP decreased her cymbalta. She is denying wound pain but is having extreme sensitivity to the area above her abdominal wound. Encouraged her to start to lightly massage the area to see if this helps desensitize it. If she continues to have issues with the myofacial pain, then may consider sending her to PT to help with the desensitization. Follow up in one week. Code Visit 111xxx-113xx: [id number] Jaylyn subq tissue 20 sq cm/<
[2018-07-25 13:04] VITALS: BP 130/94; PULSE 118; RESP 18; TEMP 36; BMI 40.6
--- NOTE | 2018-07-25 17:02 | PN.PCM_ITS ---
(1) Open wound of neck with complication Status: Chronic Code(s): S11.90XA - Unspecified open wound of unspecified part of neck, initial encounter Comment: diabetic abscess wound right posterior neck diabetic abscess wound left posterior neck (2) Nonhealing surgical wound Status: Chronic Code(s): T81.89XA - Other complications of procedures, not elsewhere classified, initial encounter (3) Open wound of abdominal wall with complication Status: Chronic Code(s): S31.109A - Unspecified open wound of abdominal wall, unspecified quadrant without penetration into peritoneal cavity, initial encounter Comment: diabetic abscess wound right lower abdominal wall (4) History of MRSA infection Status: Chronic Code(s): Z86.14 - Personal history of Methicillin resistant Staphylococcus aureus infection (5) Type 2 diabetes mellitus Status: Chronic Qualifiers: Code(s): E11.9 - Type 2 diabetes mellitus without complications (6) Obesity Status: Chronic Code(s): E66.9 - Obesity, unspecified Type of Wound Date of Service: 07/24/18 Chief Complaint: Follow-up surgical wound and VAC management. History of Wound: On 05/02/18 patient under went a surgical preparation posterior neck with incision and drainage and excisional debridement multiple necrotizing diabetic abscess wounds (45 cm2) and a surgical preparation right lower abdominal wall with incision and drainage and excisional debridement skin and subcutaneous tissue for necrotizing soft tissue diabetic abscess wound (231 cm2). She no longer wishes to have the wound VAC, will discontinue. She will continue to apply a silver alginate dressing daily to her opened wounds. Her wounds are healing well. She feels denies fever, chills and states her appetite is well. She has been drinking glucerna daily. Her abdominal wound has reopended. Her posterior neck wound is healed. Progress of Wound: Neck wound is healed. Lower abdominal wound has reopened. - Physical Exam Vital Signs Temp Pulse Resp BP 96.8 F L 118 H 18 130/94 H 07/25/18 13:04 07/25/18 13:04 07/25/18 13:04 07/25/18 13:04 General: Alert, Oriented x3, Cooperative HEENT: Atraumatic Oral: Moist Mucosa Neck: Supple Lungs: Normal air movement, - - Good ROM of neck Cardiovascular: Regular rate Extremities: No edema, Capillary Refill Less than 3 Seconds Skin: Ulcer/ Wound - Neck wound is healed. Lower abdominal wound has reopened in one superficial area Wound Measurements and Assessment WC - Nurse 1 - General Ulcer Measurement Start: 06/27/18 15:16 Freq: Status: Active Protocol: Activity Type Activity Date Activity User E-Sign Co-Sign Detail Recorded Client Recorded Date Recorded By Document 07/25/18 13:04 DL [id number] 07/25/18 13:11 DL 07/25/18 13:04 Wound Center Nurse 1 [Ulcer Assessment] #3 Abd -Current Size (cm) - Length 0.5 -Current Size (cm) - Width 0.7 -Current Size (cm) - Depth 0.1 -Total Square Cm 0.35 -Photo Taken Yes -Epithelialization Small 1-33% -Exudate Amt Small -Exudate Type Serosanguineous -Wound Margin Distinct, Outline Attached -Granulation Amt Large (67-100%) -Granulation Quality [place] -Necrosis Amt None Present (0 %) -Structure Exposed N/A -Texture (Yumiko-wound Skin Appearance) Scarring -Moisture (Yumiko-wound Skin Appearance No Abnormality ) -Color (Yumiko-wound Skin Appearance) No Abnormality -Temperature (Yumiko-wound Skin No Abnormality Appearance) (Pt Warm) -Ulcer Cleansing Rinsed/ Irrigated with Saline -Foul Odor after Cleansing No -Anesthetic Used 4% Lidocaine Solution - Nurse 2 - General Ulcer CM Notes Start: 06/27/18 15:16 Freq: Status: Active Protocol: Activity Type Activity Date Activity User E-Sign Co-Sign Detail Recorded Client Recorded Date Recorded By Document 07/25/18 13:49 TRES [id number] 07/25/18 13:50 TRES 07/25/18 13:49 Wound Center Nurse 2 [Procedure/Treatment] -Time 13:49 -Correct Patient Yes -Correct Side, Site, Position Yes -Correct Procedure Yes -Procedure Performed Yes -Type of Procedure Debridement -Clinical Debridement Subcutaneous -Post Debridement Size (cm) - Length 0.7 -Post Debridement Size (cm) - Width 0.8 -Post Debridement Size (cm) - Depth 0.2 -Total Square Cm 0.56 -Wound/Ulcer Outcome Not Healed -Ulcer Cleansing Rinsed/ Irrigated with Saline -Foul Odor after Cleansing No -Bioengineered Tissue No -Bleeding Controlled with Pressure -Offloading No -Treatment Response Procedure Tolerated Well #2 posterior neck -Correct Patient No -Correct Side, Site, Position No -Correct Procedure No -Procedure Performed No -Post Debridement Size (cm) - Length 0 -Post Debridement Size (cm) - Width 0 -Post Debridement Size (cm) - Depth 0 -Total Square Cm 0 -Wound/Ulcer Outcome Healed- Epithelialized [See Physician Procedure note for Specifics] Pain Scale: 0-10 Numeric [Pain] -Is Patient Pain Free? Yes Musculoskeletal: No Tenderness to Palpation of Joints or Extremities Neurological: Neuro grossly intact Psych/Mental Status: Normal Affect, Appropriate Debridement Note Post-Debridement Measurements/Treatment WC - Nurse 2 - General Ulcer CM Notes Start: 06/27/18 15:16 Freq: Status: Active Protocol: Activity Type Activity Date Activity User E-Sign Co-Sign Detail Recorded Client Recorded Date Recorded By Document 06/27/18 15:43 [id number] 06/27/18 15:45 Document 07/04/18 14:51 [id number] 07/04/18 14:52 Document 07/11/18 15:13 [id number] 07/11/18 15:14 Document 07/18/18 15:21 [id number] 07/18/18 15:22 Document 07/25/18 13:49 [id number] 07/25/18 13:50 06/27/18 07/04/18 07/11/18 15:43 14:51 15:13 Wound Center Nurse 2 #3 Abd -Time -Correct Patient -Correct Side, Site, Position -Correct Procedure -Procedure Performed -Type of Procedure -Clinical Debridement -Post Debridement Size (cm) - Length -Post Debridement Size (cm) - Width -Post Debridement Size (cm) - Depth -Total Square Cm -Wound/Ulcer Outcome -Ulcer Cleansing -Foul Odor after Cleansing -Bioengineered Tissue -Bleeding Controlled with -Offloading -Treatment Response #2 posterior neck -Time 15:44 14:52 15:14 -Correct Patient Yes Yes Yes -Correct Side, Site, Position Yes Yes Yes -Correct Procedure Yes Yes Yes -Procedure Performed Yes Yes Yes -Type of Procedure Debridement Debridement Debridement -Clinical Debridement Subcutaneous Subcutaneous Subcutaneous -Post Debridement Size (cm) - Length 1.3 1.7 1.3 -Post Debridement Size (cm) - Width 6.3 5.3 4.4 -Post Debridement Size (cm) - Depth 0.2 0.1 0.1 -Total Square Cm 8.19 9.01 5.72 -Wound/Ulcer Outcome Not Healed Not Healed Not Healed -Ulcer Cleansing Rinsed/ Rinsed/ Rinsed/ Irrigated with Irrigated with Irrigated with Saline Saline Saline -Foul Odor after Cleansing No No No -Bioengineered Tissue No No No -Bleeding Controlled with Pressure Pressure Pressure -Offloading No No No -Treatment Response Procedure Procedure Procedure Tolerated Well Tolerated Well Tolerated Well #1abdomen -Correct Patient No -Correct Side, Site, Position No -Correct Procedure No -Procedure Performed No -Post Debridement Size (cm) - Length 0 -Post Debridement Size (cm) - Width 0 -Post Debridement Size (cm) - Depth 0 -Total Square Cm 0 -Wound/Ulcer Outcome Healed- Epithelialized Pain Scale: 0-10 Numeric Is Patient Pain Free? Yes Yes Yes 07/18/18 07/25/18 15:21 13:49 Wound Center Nurse 2 #3 Abd -Time 13:49 -Correct Patient Yes -Correct Side, Site, Position Yes -Correct Procedure Yes -Procedure Performed Yes -Type of Procedure Debridement -Clinical Debridement Subcutaneous -Post Debridement Size (cm) - Length 0.7 -Post Debridement Size (cm) - Width 0.8 -Post Debridement Size (cm) - Depth 0.2 -Total Square Cm 0.56 -Wound/Ulcer Outcome Not Healed -Ulcer Cleansing Rinsed/ Irrigated with Saline -Foul Odor after Cleansing No -Bioengineered Tissue No -Bleeding Controlled with Pressure -Offloading No -Treatment Response Procedure Tolerated Well #2 posterior neck -Time 15:21 -Correct Patient Yes No -Correct Side, Site, Position Yes No -Correct Procedure Yes No -Procedure Performed Yes No -Type of Procedure Debridement -Clinical Debridement Subcutaneous -Post Debridement Size (cm) - Length 0.7 0 -Post Debridement Size (cm) - Width 2.2 0 -Post Debridement Size (cm) - Depth 0.2 0 -Total Square Cm 1.54 0 -Wound/Ulcer Outcome Not Healed Healed- Epithelialized -Ulcer Cleansing Rinsed/ Irrigated with Saline -Foul Odor after Cleansing No -Bioengineered Tissue No -Bleeding Controlled with Pressure -Offloading No -Treatment Response Procedure Tolerated Well #1abdomen -Correct Patient -Correct Side, Site, Position -Correct Procedure -Procedure Performed -Post Debridement Size (cm) - Length -Post Debridement Size (cm) - Width -Post Debridement Size (cm) - Depth -Total Square Cm -Wound/Ulcer Outcome Pain Scale: 0-10 Numeric Is Patient Pain Free? Yes Yes Wound debrided: Lower abdominal wound Type of Debridement: Excisional debridement Anesthesia Used: 4% Lidocaine Solution Depth: Down to and including healthy tissue, in the subcutaneous layer Percentage of wound debrided: 100 Instrument Used: 3mm curette Tissue Removed: Subcutaneous tissue and slough Severity: Limited To Skin Breakdown Amount of bleeding with debridement: Mild Bleeding Controlled with: Pressure Patient tolerated procedure well Assessment/Plan Assessment: 1. Nonhealing surgical wound. 2. Open wound of abdominal wall with complication- healed. 3. Open wound of neck with complication. 4. Type 2 diabetes mellitus. 5. Obesity Plan: Lower abdominal incision has reopened. Her neck wound has healed. Debridement of lower abdominal wound done as documented above. Procedure was well-tolerated. Will continue silver alginate (aquacel silver) dressing changes daily to the abdominal wound. Encouraged to try and keep that area as dry as possible. Encouraged to get into the shower and wash area with soap and water and pat dry well. She has good range of motion with her neck, encouraged her to massage the scar daily to help soften up the scarring. Also encouraged her to keep abdominal wound area as dry as possible to prevent breakdown of the wound since it is in a skin crease. Obtained a wound culture today 07/25/18. She is drinking Glucerna for extra protein. She has had some changes in her insulin and her blood sugars are improving. She is trying to keep her blood sugars undercontrol. Her wound cultures Pre op grew Corynebacterium striatum and Actinimyces odontolyticus and Anaerobic cocci. Operative cultures from 05/02/18 Neck showed Staphylococcus epidermidis and abdomen showed now organisms. She completed the Clindamycin. Her Pre-albumin was 15.2 from 05/02/18. Encouraged her to continue her high protein diet and to continue controlling her blood sugars. She is to call with any concerns. Her neuropathy pain has increased since her PCP decreased her cymbalta. She is denying wound pain but is having extreme sensitivity to the area above her abdominal wound. Encouraged her to start to lightly massage the area to see if this helps desensitize it. If she continues to have issues with the myofacial pain, then may consider sending her to PT to help with the desensitization. Follow up in one week. Code Visit [id number]
== END 2018-07-25 23:59 ==
LOC: WC 13:00
PROVIDERS: Family Provider Family Medicine; PCP Family Medicine; Referring Provider Nurse Practitioner Family; Visit Provider Nurse Practitioner Family
DX: T81.89XA Other complications of procedures, not elsewhere classified, initial encounter (principal); Y83.8 Other surgical procedures as the cause of abnormal reaction of the patient, or of later complication, without mention of misadventure at the time of the procedure; Z86.14 Personal history of Methicillin resistant Staphylococcus aureus infection; E11.9 Type 2 diabetes mellitus without complications; E66.9 Obesity, unspecified; Z71.3 Dietary counseling and surveillance; L02.11 Cutaneous abscess of neck; L02.211 Cutaneous abscess of abdominal wall
CPT/HCPCS: 11042; 87070; 87075; 87077; 87186; 87205

== ENCOUNTER 2018-08-07 13:40 | Outpatient (RCR) | payer OTHER, SELFPAY ==
[2018-07-26 01:18] VITALS: BP 130/94; PULSE 118; RESP 18; TEMP 36
[2018-08-07 13:52] VITALS: BP 139/93; PULSE 116; RESP 16; TEMP 36.4; BMI 40.6
--- NOTE | 2018-08-07 16:55 | PN.PCM_ITS ---
(1) Open wound of abdominal wall with complication Status: Chronic Current Visit: Yes Code(s): S31.109A - Unspecified open wound of abdominal wall, unspecified quadrant without penetration into peritoneal cavity, initial encounter Comment: diabetic abscess wound right lower abdominal wall (2) Nonhealing surgical wound Status: Chronic Current Visit: Yes Code(s): T81.89XA - Other complications of procedures, not elsewhere classified, initial encounter (3) Open wound of neck with complication Status: Chronic Current Visit: Yes Code(s): S11.90XA - Unspecified open wound of unspecified part of neck, initial encounter Comment: diabetic abscess wound right posterior neck diabetic abscess wound left posterior neck (4) Neuropathy Status: Chronic Current Visit: Yes Code(s): G62.9 - Polyneuropathy, unspecified (5) Diabetes mellitus Status: Chronic Current Visit: Yes Code(s): E11.9 - Type 2 diabetes mellitus without complications (6) Obesity Status: Chronic Current Visit: Yes Code(s): E66.9 - Obesity, unspecified (7) Abdominal panniculus, symptomatic Status: Chronic Current Visit: Yes Code(s): E65 - Localized adiposity Type of Wound Date of Service: 08/07/18 Chief Complaint: Follow-up surgical wound and VAC management. History of Wound: On 05/02/18 patient under went a surgical preparation posterior neck with incision and drainage and excisional debridement multiple necrotizing diabetic abscess wounds (45 cm2) and a surgical preparation right lower abdominal wall with incision and drainage and excisional debridement skin and subcutaneous tissue for necrotizing soft tissue diabetic abscess wound (231 cm2). She no longer wishes to have the wound VAC, will discontinue. She will continue to apply a silver alginate dressing daily to her opened wounds. Her w ounds are healing well. She feels denies fever, chills and states her appetite is well. She has been drinking glucerna daily. Her abdominal wound remains healed. Progress of Wound: Neck wound healed. Abdominal wound healed. - Physical Exam Vital Signs Temp Pulse Resp BP 97.5 F L 116 H 16 139/93 H 08/07/18 13:52 08/07/18 13:52 08/07/18 13:52 08/07/18 13:52 General: Alert, Oriented x3, Cooperative HEENT: Atraumatic Oral: Moist Mucosa Neck: Supple, - - good neck range of motion Lungs: Normal air movement Cardiovascular: Regular rate Extremities: No edema, Capillary Refill Less than 3 Seconds, Peripheral Pulses Normal Skin: Ulcer/ Wound - Posterior neck wound and abdominal wound are both healed. Wound Measurements and Assessment WC - Nurse 1 - General Ulcer Measurement Start: 08/07/18 13:51 Freq: Status: Active Protocol: Activity Type Activity Date Activity User E-Sign Co-Sign Detail Recorded Client Recorded Date Recorded By Document 08/07/18 13:52 MW [id number] 08/07/18 13:54 MW 08/07/18 13:52 Wound Center Nurse 1 [Ulcer Assessment] #3 Abd -Combined with other wound No -Current Size (cm) - Length 0.1 -Current Size (cm) - Width 0.1 -Current Size (cm) - Depth 0.1 -Total Square Cm 0.01 -Photo Taken No -Epithelialization Large 67-100% -Tunneling No -Undermining/Tunneling No -Circular Undermining No -Exudate Amt None Present -Wound Margin Flat & Intact -Granulation Amt None Present (0 %) -Granulation Quality N/A -Slough/Fibrin No -Necrosis Amt None Present (0 %) -Texture (Yumiko-wound Skin Appearance) Assessed Scarring -Moisture (Yumiko-wound Skin Appearance No Abnormality ) Assessed -Color (Yumiko-wound Skin Appearance) No Abnormality Assessed -Temperature (Yumiko-wound Skin No Abnormality Appearance) (Pt Warm) -Tenderness on Palpation (Yumiko-wound Yes Skin Appearance) -Ulcer Cleansing Not Cleansed -Foul Odor after Cleansing No [Edema Assessment] -Lower Limb Edema Present No WC - Nurse 2 - General Ulcer CM Notes Start: 08/07/18 13:51 Freq: Status: Active Protocol: Activity Type Activity Date Activity User E-Sign Co-Sign Detail Recorded Client Recorded Date Recorded By Document 08/07/18 14:06 [id number] 08/07/18 14:07 08/07/18 14:06 Wound Center Nurse 2 [Procedure/Treatment] #3 Abd -Correct Patient No -Correct Side, Site, Position No -Correct Procedure No -Procedure Performed No -Post Debridement Size (cm) - Length 0 -Post Debridement Size (cm) - Width 0 -Post Debridement Size (cm) - Depth 0 -Total Square Cm 0 -Wound/Ulcer Outcome Healed- Epithelialized [See Physician Procedure note for Specifics] Pain Scale: 0-10 Numeric [Pain] -Is Patient Pain Free? Yes Musculoskeletal: No Tenderness to Palpation of Joints or Extremities Neurological: Neuro grossly intact Psych/Mental Status: Normal Affect, Appropriate Debridement Note Post-Debridement Measurements/Treatment WC - Nurse 2 - General Ulcer CM Notes Start: 08/07/18 13:51 Freq: Status: Active Protocol: Activity Type Activity Date Activity User E-Sign Co-Sign Detail Recorded Client Recorded Date Recorded By Document 08/07/18 14:06 TRES [id number] 08/07/18 14:07 TRES 08/07/18 14:06 Wound Center Nurse 2 #3 Abd -Correct Patient No -Correct Side, Site, Position No -Correct Procedure No -Procedure Performed No -Post Debridement Size (cm) - Length 0 -Post Debridement Size (cm) - Width 0 -Post Debridement Size (cm) - Depth 0 -Total Square Cm 0 -Wound/Ulcer Outcome Healed- Epithelialized Pain Scale: 0-10 Numeric Is Patient Pain Free? Yes Wound debrided: posterior neck and lower abdomen No debridement was completed today Assessment/Plan Active Problems (Last Updated 06/28/18 @ 16:19 by Shayla Balderas) Neuropathy (Chronic) Diabetes mellitus (Chronic) Nonhealing surgical wound (Chronic) Obesity (Chronic) Open wound of abdominal wall with complication (Chronic) diabetic abscess wound right lower abdominal wall Open wound of neck with complication (Chronic) diabetic abscess wound right posterior neck diabetic abscess wound left posterior neck Abdominal panniculus, symptomatic (Chronic) Assessment: 1. Nonhealing surgical wound. 2. Open wound of abdominal wall with complication- healed. 3. Open wound of neck with complication. 4. Type 2 diabetes mellitus. 5. Obesity Plan: Lower abdominal incision and posterior neck wound are healed. Encouraged her to place a strip of aquacel-ag dressing in the crease to keep it dry. Encouraged to get into the shower and wash area with soap and water and pat dry well. She has good range of motion with her neck. Since her abdominal wound is healed, encouraged her to massage the scar daily to help soften up the scarring. Also encouraged her to keep this area dry to prevent breakdown of the wound since it is in a skin crease.She is drinking Glucerna for extra protein. She has had some changes in her insulin and her blood sugars are improving. She is trying to keep her blood sugars undercontrol. Her wound cultures Pre op grew Corynebacterium striatum and Actinimyces odontolyticus and Anaerobic cocci. Operative cultures from 05/02/18 Neck showed Staphylococcus epidermidis and abdomen showed now organisms. She completed the Clindamycin. Her Pre-albumin was 15.2 from 05/02/18. Encouraged her to continue her high protein diet and to continue controlling her blood sugars. She is to call with any concerns. Her neuropathy pain has increased since her PCP decreased her cymbalta. She is denying wound pain but is having extreme sensitivity to the area above her abdominal wound. Encouraged her to start to lightly massage the area to see if this helps desensitize it. If she continues to have issues with the myofacial pain, then may consider sending her to PT to help with the desensitization. She is healed today. Follow up as needed. Code Visit Office Visits / Consults: [id number] OV L3 Est
== END 2018-08-25 23:59 ==
LOC: WC 13:40
PROVIDERS: Family Provider Family Medicine; PCP Family Medicine; Referring Provider Nurse Practitioner Family; Visit Provider Nurse Practitioner Family
DX: Z09 Encounter for follow-up examination after completed treatment for conditions other than malignant neoplasm (principal); Z86.14 Personal history of Methicillin resistant Staphylococcus aureus infection; E11.9 Type 2 diabetes mellitus without complications; E66.9 Obesity, unspecified
CPT/HCPCS: 99212; G0463

== ENCOUNTER → 2018-08-07 14:22 | Outpatient (CLI) | payer OTHER, SELFPAY ==
[2018-08-07 13:52] VITALS: BMI 40.6
[2018-08-07 15:22] LABS: Hemoglobin A1c 7.8 % (4.2-6.3)
== END ==
PROVIDERS: Family Provider Internal Medicine; PCP Internal Medicine; Referring Provider Internal Medicine; Visit Provider Internal Medicine
DX: E11.9 Type 2 diabetes mellitus without complications (principal)
CPT/HCPCS: 36415; 83036

== ENCOUNTER → 2018-09-13 15:52 | Outpatient (CLI) | payer OTHER, SELFPAY ==
[2018-08-16 13:22] VITALS: BMI 40.6
[2018-09-15 16:07] LABS: Endomysial Antibody IgA Negative (Negative)
[2018-09-18 11:33] LABS: Immunoglobulin A 528 mg/dL (87-352); t-Transglutaminase IgA <2 U/mL (0-3)
== END ==
PROVIDERS: Family Provider Internal Medicine; PCP Internal Medicine; Referring Provider Internal Medicine Gastroenterology; Visit Provider Internal Medicine Gastroenterology
DX: R19.7 Diarrhea, unspecified (principal)
CPT/HCPCS: 36415; 82784; 83516; 86140; 86255

== ENCOUNTER 2019-04-25 00:21 | Observation (INO) | payer OTHER, SELFPAY ==
[2019-01-08 12:04] VITALS: BMI 40.6
[2019-04-25] VITALS (24 sets, daily range): BP systolic 96–146; BP diastolic 44–108; PULSE 96–121; RESP 16–24; TEMP 36.6–37.4; O2SAT 94–98; BMI 40.3; BMI 40.8
--- NOTE | 2019-04-25 00:29 | RAD_ITS ---
STUDY: X-RAY CHEST REASON FOR EXAM: Female, 43 years old. SOB AND WHEEZING X 3 DAYS TECHNIQUE: AP portable COMPARISON: 04/29/2018 and 07/30/2017 FINDINGS: The lungs demonstrate no focal lung consolidation changes. There is no demonstrated pleural abnormality. Normal size heart. Normal mediastinum and paulette. Normal visualized pulmonary arteries. Normal visualized aortic arch and descending thoracic aorta. There is a dextroscoliosis of the thoracic spine. Normal visualized ribs, clavicles, and shoulders. There is no demonstrated abnormality of the visualized soft tissue structures of the upper abdomen. RAD/Chest 1 View (Portable) IMPRESSION: Stable chest radiograph without evidence for focal consolidative lung changes. Electronically Signed: Vince Monte, at 1:24 EST Tel , Service support ,
--- NOTE | 2019-04-25 00:29 | EKG12_ITS ---
Test Reason : SOB Blood Pressure : / mmHG Vent. Rate : 134 BPM Atrial Rate : 134 BPM P-R Int : 134 ms QRS Dur : 088 ms QT Int : 300 ms P-R-T Axes : 030 004 000 degrees QTc Int : 448 ms Sinus tachycardia Possible Left atrial enlargement Nonspecific ST abnormality Abnormal ECG Confirmed by MALKA PINO ([id number]), social media editor NAUN BAEZ ([id number]) on 04/26/2019 10:35:18 AM Referred By: KIMBERLEY Confirmed By:MALKA PINO
--- NOTE | 2019-04-25 00:31 | ED.VIS.GEN ---
History of Present Illness Chief Complaint: Shortness of Breath Informant: Patient Onset: Days - 3 days Context: Gradual Onset Timing: Waxes and wanes Current Severity: Moderate Maximum Severity: Moderate Narrative: Patient presents with cough, shortness of breath, and wheezing for the past 3 days. She has not noted a fever at home. She states she feels like she has chest congestion that is caught in her chest. She tried taking Mucinex cold and flu without improvement. She does not have a diagnosis of asthma or COPD. - Past Medical History (1) Depression with anxiety Status: Chronic (2) Diabetes mellitus Status: Chronic (3) Essential hypertension Status: Chronic (4) Hyperlipidemia Status: Chronic (5) ANA (obstructive sleep apnea) Status: Chronic (6) Tachycardia Status: Chronic (7) Type 2 diabetes mellitus Status: Chronic Past Medical History - Allergies and Home Meds Allergies/Adverse Reactions: Allergies pregabalin [From Lyrica] Allergy (Verified 05/10/18 11:20) Other SI sulfamethoxazole [From Bactrim] Allergy (Verified 05/10/18 11:20) Rash tramadol HCl [From Ultram] Allergy (Verified 05/10/18 11:20) Swelling trimethoprim [From Bactrim] Allergy (Verified 05/10/18 11:20) Rash vancomycin Allergy (Verified 05/10/18 11:20) Swelling Primary Care Physician: Nevaeh Oconnor MD [Primary Care Provider] - Prior records reviewed: Yes Surgical History: - Lives: Spouse/ Significant Other Smoking Status: Never smoker - Family History Maternal Family History: Family History (Last Updated 06/28/18 @ 16:06 by Shayla Balderas) Other Alcoholism Arthritis CVA (cerebral vascular accident) Depression Diabetes Heart disease Hyperlipemia Hypertension Kidney disease Thyroid disorder Family History: Reports: - - Patient notes a maternal family history of brain cancer. Paternal Family History: Family History (Last Updated 06/28/18 @ 16:06 by Shayla Balderas) Other Alcoholism Arthritis CVA (cerebral vascular accident) Depression Diabetes Heart disease Hyperlipemia Hypertension Kidney disease Thyroid disorder Family History: Reports: - - Patient notes her father was very healthy only medical issue had been reflux. Review of Systems General: Denies: Chills, Fever Eyes: Denies: Visual changes - bilaterally ENT: Denies: Bilateral ear pain Cardiovascular: Denies: Chest pain Respiratory: Reports: Dyspnea, Cough. Denies: Sputum Gastrointestinal: Denies: Abdominal pain, Nausea, Vomiting, Diarrhea Genitourinary: Denies: Dysuria Musculoskeletal: Denies: Extremity Pain Skin: Denies: Rash Neurological: Denies: Headache Allergy: Denies: Uticaria Physical Exam Vital Signs/Narrative: Vital Signs Temp Pulse Resp BP Pulse Ox 04/25/19 00:24 99.3 F H 96 24 H 146/108 H 95 04/25/19 00:22 99.3 F H 96 24 H 146/108 H 95 Inital Vital Signs reviewed: Yes General: Well nourished, Well developed Head: Normocephalic ENT: Moist mucous membranes Neck: Supple Cardiovascular: Tachycardia Respiratory: Wheezing Abdomen: Soft, Nontender Extremities: Nontender Skin: Normal color Neurological: Alert, Oriented x3 Diagnostic/Tx/Re-eval Impressions Chest X-Ray 04/25/19 00:29 IMPRESSION: Stable chest radiograph without evidence for focal consolidative lung changes. Electronically Signed: Vince Monte at 1:24 EST Tel , Service support , Abdomen/Pelvis CT 04/25/19 03:50 IMPRESSION: Negative unenhanced CT of the abdomen and pelvis for acute intra-abdominal abnormality. Electronically Signed: Vince Monte at 4:43 EST Tel , Service support , Chest CTA 04/25/19 03:50 IMPRESSION: Negative CTA chest examination for a demonstrated pulmonary embolism or arterial dissection. Trace bilateral pleural effusions with mild areas of groundglass lung opacities may be due to underlying edema. Electronically Signed: Vince Monte at 4:49 EST Tel , Service support , 04/25/19 00:29 Chest 1 View (Portable) [RAD] Stat 04/25/19 03:50 Abdomen/Pelvis without Cont [CT] Stat CTA Chest W/WO Contrast [CT] Stat 04/25/19 00:41 Mucosa - Nasopharyngeal Influenza Types A,B Direct FA (DAVID) - Final Laboratory Results 04/25/19 04/25/19 04/25/19 00:45 00:45 00:45 WBC 11.3 H RBC 5.08 Hgb 14.1 Hct 44.2 MCV 87.0 MCH 27.8 MCHC 31.9 L RDW Std Deviation 41.2 RDW Coeff of Zeny 13.2 Plt Count 268 MPV 11.4 Immature Gran % (Auto) 0.400 Neut % (Auto) 62.1 Lymph % (Auto) 27.6 [place] % (Auto) 7.0 Eos % (Auto) 2.5 Baso % (Auto) 0.4 Absolute Neuts (auto) 7.0 Absolute Lymphs (auto) 3.11 Nucleated RBC % 0 Sodium 137 Potassium 5.0 Chloride 103 Carbon Dioxide 28.0 Anion Gap 6 BUN 10 Creatinine 0.72 Estim Creat Clear Calc 77.59 Est GFR (MDRD) Af Amer 114 Est GFR (MDRD) Non-Af 94 BUN/Creatinine Ratio 13.8 Glucose 310 H Lactic Acid 2.6 H* Calcium 8.7 - EKG Initial EKG Interpretation: Sinus Tachycardia - Sinus tach at 134. No acute ischemia. Unchanged when compared to prior study. - Medical Decision Making Patient was initially given a cycle of aerosol treatments. Wheezing was significantly improved and she had increased air movement throughout. She was having significant right flank pain, worse with movement and cough that she thought was musculoskeletal. She received a single dose of morphine and Zofran. Following this her O2 sats declined into the high 80s. She was placed on couple liters via nasal cannula. After period of observation we attempted to wean the oxygen but her sats would drop to 88% on room air. She was given another DuoNeb treatment. There is no evidence of infiltrate on x-ray. CTA of the chest is unremarkable. At this time patient states she feels like she is breathing much better. She has improved aeration on auscultation of her lungs. When we turn off her oxygen, however, her sats do drop to 87 to 88% on room air. She is placed back on 2 L nasal cannula this time. She is given a p.o. dose of prednisone and doxycycline. She will be admitted for further treatment and observation. Patient did have a slight bump in her lactic acid, however technically does not meet even sirs criteria. She would only receive one point for Sirs and that would be of for a heart rate of 120 which she states is chronic for her. She states she has had multiple work-ups for her chronic ongoing tachycardia with no definitive cause. Her baseline heart rate is 120. ED Disposition - Plan for ED Patient: Disposition: Acute [facility] Diagnosis: Bronchitis with bronchospasm, Hypoxia Referrals: Nevaeh Oconnor MD [Primary Care Provider] -
[2019-04-25] MEDS: Ipratropium/Albuterol Sulfate 3 ML AMPUL.NEB INHALATION ×5 (00:40→19:31)
[2019-04-25] MEDS: Albuterol 2.5 MG/3 ML VIAL.NEB. INHALATION ×2 (00:40)
[2019-04-25 00:53] LABS: Absolute Lymphocyte Count 3.11 X10^3/uL (0.83-4.51); Basophil# 0.05 X10^3/uL; Basophil% 0.4 % (0-1); Eosinophil# 0.28 X10^3/uL; Eosinophils% 2.5 % (0-5); Hematocrit 44.2 % (37-47); Hemoglobin 14.1 g/dL (12.0-15.0); Lymphocyte # 3.11 X10^3/ul (4.0); Lymphocyte % 27.6 % (19-41); Mean Corp Hgb Conc 31.9 g/dL (32-36); Mean Corpuscular Hgb 27.8 pg (27.0-32.0); Mean Platelet Vol. 11.4 fl (6.2-12.0); Monocyte# 0.79 X10^3/uL; NRBC Flagged by Analyzer 0 % (0-5); Neutrophil # 6.97 X10^3/uL (2.7-7.7); Neutrophil % 62.1 % (47-70); Platelet Count 268 K/mm3 (150-450); RBC Distribution Width CV 13.2 % (11.6-14.6); RBC Distribution Width SD 41.2 fl (35.1-43.9); Red Blood Count 5.08 M/mm3 (4.2-5.4); White Blood Count 11.3 K/mm3 (4.4-11.0)
[2019-04-25 01:12] LABS: Anion Gap 6 (5-15); BUN 10 mg/dL (7-18); BUN/Creat Ratio 13.8 RATIO (10-20); Calcium,Total 8.7 mg/dL (8.5-10.1); Chloride 103 mmol/L (98-107); Creatinine, Serum 0.72 mg/dL (0.55-1.02); EST Glomerular Filtration Rate 94 mL/min (>60); Est Glom Filt Rate - Afr Amer 114 mL/min (>60); Estimated Creatinine Clearance 77.59 ml/min; Glucose 310 mg/dL (74-106); Sodium Level 137 mmol/L (136-145)
[2019-04-25 01:21] LABS: Lactic Acid 2.6 mmol/L (0.4-1.9)
[2019-04-25] MEDS: 0.9% Normal Saline 1,000 ML 999 ML IV ×2 (02:00→04:00)
[2019-04-25] MEDS: Morphine 4 MG/ML Syringe IV (02:00)
[2019-04-25] MEDS: Ondansetron 4 MG/2 ML Vial IV (02:00)
--- NOTE | 2019-04-25 03:38 | ED.RN ---
SEE DOWNTIME DOCUMENTATION FROM [id number] - [id number]
--- NOTE | 2019-04-25 03:50 | CT_ITS ---
STUDY: CT ABDOMEN AND PELVIS WITHOUT CONTRAST REASON FOR EXAM: Female, 43 years old. RIGHT FLANK PAIN WITH SOB, WHEEZING, HX HTN, GB, SCOLIOSIS, DIAB, MRSA RADIATION DOSAGE (If Supplied By Facility): CTDIvol = ( 19.71 ) mGy, DLP = ( 984.58 ) mGycm TECHNIQUE: Transaxial images were obtained from the dome of the diaphragm to the symphysis pubis without oral contrast, and without intravenous contrast. Sagittal and coronal images were reconstructed. Individualized dose optimization techniques were used for this CT. COMPARISON: CT abdomen and pelvis from 10/29/2015 FINDINGS: The visualized lung bases are unremarkable. The visualized portions of the heart are within normal limits. Normal liver. There are surgical clips in the gallbladder fossa consistent with a prior cholecystectomy. Normal spleen. Normal pancreas. Normal bilateral adrenal glands. Normal right kidney. Normal left kidney. Normal visualized stomach. Normal small intestine. Normal colon. The appendix is visualized and appears normal. There is a large amount of retained stool in the ascending and transverse colon. Correlate for constipation. Normal abdominal aorta. Normal inferior vena cava. Normal retroperitoneum. Normal urinary bladder. The uterus is surgically absent. Normal abdominal wall. There is a scoliotic curvature of the thoracolumbar spine. CT/Abdomen/Pelvis without Cont IMPRESSION: Negative unenhanced CT of the abdomen and pelvis for acute intra-abdominal abnormality. Electronically Signed: Vince Monte, at 4:43 EST Tel , Service support ,
--- NOTE | 2019-04-25 03:50 | CT_ITS ---
STUDY: CTA CHEST REASON FOR EXAM: Female, 43 years old. SOB AND WHEEZING, HX HTN, SCOLIOSIS, DIAB RADIATION DOSAGE (If Supplied By Facility): CTDIvol = ( 19.63 ) mGy, DLP = ( 467.52 ) mGycm TECHNIQUE: The examination was performed with the intravenous administration of IV 100mL [id number]-370. Post-processing of the angiographic images was performed, with multiplanar reformation and 3D reconstruction. Individualized dose optimization techniques were used for this CT. COMPARISON: CTA chest from 11/06/2015 FINDINGS: Normal enhancement of the main pulmonary artery and right and left pulmonary arteries. Normal enhancement of the bilateral peripheral pulmonary arteries. There is no demonstrated pulmonary embolism. Normal thoracic aorta and visualized great vessels. There is no demonstrated aortic dissection. Normal heart and pericardium. Normal mediastinum. Normal hilar regions. Normal visualized trachea and bronchi. The lungs are well expanded. There are trace bilateral pleural effusions. There is probable bibasilar lung atelectasis. No focal lung consolidation changes. Minimal areas of groundglass lung opacity. Normal chest wall structures. There is scoliotic curvature of the thoracolumbar spine. Normal visualized upper abdomen. CT/CTA Chest W/WO Contrast IMPRESSION: Negative CTA chest examination for a demonstrated pulmonary embolism or arterial dissection. Trace bilateral pleural effusions with mild areas of groundglass lung opacities may be due to underlying edema. Electronically Signed: Vince Monte, at 4:49 EST Tel , Service support ,
[2019-04-25 04:50] LABS: Reflex Lactate? Y
[2019-04-25] MEDS: predniSONE 20 MG Tablet 60 MG PO (05:15)
[2019-04-25] MEDS: Doxycycline 100 MG CAPSULE PO (05:15)
[2019-04-25] MEDS: fentaNYL 100 MCG/2 ML Ampul 25 MCG IV (05:26)
--- NOTE | 2019-04-25 06:09 | PCM.HP.STD ---
Problem List (1) Bronchitis with bronchospasm Status: Acute (2) Hypoxia Status: Acute (3) Essential hypertension Status: Chronic (4) ANA (obstructive sleep apnea) Status: Chronic (5) Tachycardia Status: Chronic (6) Depression with anxiety Status: Chronic (7) Hyperlipidemia Status: Chronic Qualifiers: Hyperlipidemia type: pure hypercholesterolemia Qualified Code(s): E78.00 - Pure hypercholesterolemia, unspecified; E78.0 - Pure hypercholesterolemia (8) Type 2 diabetes mellitus Status: Chronic History of Present Illness Date of Admission: 04/25/19 Chief Complaint: Shortness of breath, wheezing. The patient is a 43 year old F patient with past medical history as mentioned above presented to the emergency room because of shortness of breath and wheezing. Her symptoms started 3 days ago with shortness of breath, both exertional and at rest, associated with productive cough with minimal sputum as well as wheezing and without relieving factors. She denies fever chills. She denied sore throat, nasal sinus congestion. She complained of lower abdominal discomfort and attributed that to coughing hard. No recent travel and no sick people around. In the emergency department, she was afebrile, tachycardic, blood pressure stable, tachypneic, initial pulse ox was 95% on room air. Her routine blood work was remarkable for mild leukocytosis, otherwise normal. Lactic acid was 2.6. EKG revealed sinus tachycardia, no acute skin changes. Patient received DuoNeb x2, albuterol x1, doxycycline p.o. She continued to be short of breath and her pulse ox dropped down to mid 80s. CTA chest done and showed no PE or dissection, no pneumonia. CT scan abdomen and pelvis without contrast was normal without evidence of acute intra-abdominal pathology. Chest x-ray showed no acute findings. She is being admitted for asthmatic bronchitis probably viral with acute hypoxia as well as mild lactic acidosis. Past Medical History Past Medical History (Chronic Problems): Chronic Problems (Last Updated 04/25/19 @ 05:56 by Gael Woodard MD) Essential hypertension (Chronic) ANA (obstructive sleep apnea) (Chronic) Tachycardia (Chronic) Depression with anxiety (Chronic) Neuropathy (Chronic) Nonhealing surgical wound (Chronic) Obesity (Chronic) Open wound of abdominal wall with complication (Chronic) diabetic abscess wound right lower abdominal wall Open wound of neck with complication (Chronic) diabetic abscess wound right posterior neck diabetic abscess wound left posterior neck Abdominal panniculus, symptomatic (Chronic) Hyperlipidemia (Chronic) Morbid obesity due to excess calories (Chronic) History of MRSA infection (Chronic) Type 2 diabetes mellitus (Chronic) Medical History: Medical History (Last Updated 04/25/19 @ 05:56 by Gael Woodard MD) Anxiety and depression F41.9, F32.9 Arthritis M19.90 IBS (irritable bowel syndrome) K58.9 Lupus M32.9 Migraines G43.909 Neuropathy G62.9 Allergies pregabalin [From Lyrica] Allergy (Verified 05/10/18 11:20) Other SI sulfamethoxazole [From Bactrim] Allergy (Verified 05/10/18 11:20) Rash tramadol HCl [From Ultram] Allergy (Verified 05/10/18 11:20) Swelling trimethoprim [From Bactrim] Allergy (Verified 05/10/18 11:20) Rash vancomycin Allergy (Verified 05/10/18 11:20) Swelling Home Medications: Ambulatory Orders Medication Instructions Recorded Aspirin E.C. [Ecotrin] 81 mg PO DAILY@0800 07/28/17 multivitamin 1 cap PO DAILY 06/28/18 cholecalciferol (vitamin D3) 50 2,000 unit PO DAILY #90 cap 11/03/18 mcg (2,000 unit) capsule duloxetine 60 mg capsule,delayed 60 mg PO BID #180 cap 11/03/18 release amitriptyline 100 mg tablet 100 mg PO QHS #90 tab 12/04/18 gabapentin 800 mg tablet 800 mg PO TID #270 tab 12/04/18 simvastatin 20 mg tablet 20 mg PO QHS #90 tab 02/20/19 melatonin 10 mg tablet 10 mg PO QHS #30 tab 03/22/19 dulaglutide 1.5 mg/0.5 mL 1.5 mg SC QWEEK #2 ml 04/24/19 subcutaneous pen injector insulin detemir U-100 100 unit/mL 38 unit SUBCUT QHS #15 ml 04/24/19 (3 mL) subcutaneous pen Metformin HCl [Glucophage] 1,000 mg PO BID 04/25/19 Metoprolol Succinate 50 mg PO DAILY 04/25/19 Surgical History: Surgical History (Last Updated 06/28/18 @ 16:04 by Shayla Balderas) History of cholecystectomy Z90.49 History of hysterectomy Z90.710 History of neck surgery Z98.890 navel removal Surgical History: - - Multiple I&D secondary to abscesses including bilateral axilla hidradenitis interventions with resections, cholecystectomy, total hysterectomy, D&C x2 secondary to miscarriages x2. 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 Paternal Family History: Family History (Last Updated 04/25/19 @ 06:15 by Gael Woodard MD) Other Arthritis CVA (cerebral vascular accident) Depression Diabetes Heart disease Hyperlipemia Hypertension Kidney disease Thyroid disorder History Items: - - Patient notes her father was very healthy only medical issue had been reflux. Review of Systems Constitutional: Denies: Anorexia, Chills, Fever, Weakness Eyes: Denies: Blurred vision, Double vision, Drainage, Redness HEENT: Denies: Difficulty Hearing, Ear Pain, Eye Pain, Nasal Congestion, Sore Throat Cardiovascular: Denies: Chest Pain, Chest Pressure, Heaviness, Light Headedness, Palpitations, Syncope Respiratory: Reports: Cough, Pleuritic Pain, Shortness of Breath, Shortness of breath at rest, Shortness of breath upon exertion, Sputum production, Wheezing Gastrointestinal: Denies: Abdominal Pain, Constipation, Diarrhea, Nausea, Vomiting Genitourinary: Denies: Dysuria, Frequency, Hematuria Musculoskeletal: Denies: Arm Pain, Back Pain, Foot Pain Skin: Denies: Dryness, Rash Neurological: Denies: Balance problems, Double vision, Change in Speech, Slurred speech, Confusion, Incoordination, Numbness Psychiatric: Reports: Anxiety, Depression Endocrine: Denies: Change in Body Habitus, Polydipsia, Polyuria VTE Information - Inpt Only VTE Present on Admission: No VTE Mechan Device Prophylaxis: None VTE Pharm Prophylaxis ordered?: Yes Patient Problems: Active and Suspected Problems (Last Updated 04/25/19 @ 05:56 by Gael Woodard MD) Bronchitis with bronchospasm (Acute) Hypoxia (Acute) - Physical Exam Vitals/I&O's: Vital Signs Temp Pulse Resp BP Pulse Ox 99.3 F H 116 H 22 H 99/70 97 04/25/19 00:24 04/25/19 06:01 04/25/19 06:01 04/25/19 06:01 04/25/19 06:01 Oxygen Flow Rate (L/min) 2 Oxygen Delivery Method Nasal Cannula Weight: 213 lb 6.519 oz Body Mass Index (BMI) 40.3 Finger Stick Blood Glucose 197 Intake and Output for Last 24 Hours 04/23/19 04/24/19 04/25/19 23:59 23:59 23:59 Intake Total 1000 / 1000 Balance 1000 / 1000 General: Alert, Oriented x3, Cooperative, - - Mildly short of breath. HEENT: Atraumatic, PERRLA, EOMI, Normocephalic Oral: Moist Mucosa, No Gingival or Mucosal Lesions/ Ulcerations Neck: Supple, No JVD, Negative Carotid Bruits, Trachea Midline, Thyroid Normal Size and Texture Lungs: No rales, Diminished, Rhonchi, Short of Breath, Wheezes, - - Decreased breath sounds bilateral, bilateral expiratory wheezes, rhonchi. Cardiovascular: Regular rate, Regular Rhythm, Normal S1, Normal S2, PMI Normal Abdomen: Bowel Sounds Present, Soft, Non Tender, Non-Distended, No Hepato-splenomegaly, Obese Extremities: No clubbing, No cyanosis, No edema Skin: No rashes, No breakdown Lymphatic: No Cervical, Supraclavicular, or Inguinal Adenopathy Neurological: Cranial nerves II-XII grossly intact, Motor Exam 5/5 strength throughout Psych/Mental Status: Normal Affect, Appropriate, Alert and oriented to time, place, person, mood and affect Microbiology Past 72 Hours 04/25/19 00:41 Mucosa - Nasopharyngeal Influenza Types A,B Direct FA (DAVID) - Final Laboratory Results 04/25/19 00:45: WBC 11.3 H, RBC 5.08, Hgb 14.1, Hct 44.2, MCV 87.0, MCH 27.8, MCHC 31.9 L, RDW Std Deviation 41.2, RDW Coeff of Zeny 13.2, Plt Count 268, MPV 11.4, Immature Gran % (Auto) 0.400, Neut % (Auto) 62.1, Lymph % (Auto) 27.6, [place] % (Auto) 7.0, Eos % (Auto) 2.5, Baso % (Auto) 0.4, Absolute Neuts (auto) 7.0, Absolute Lymphs (auto) 3.11, Nucleated RBC % 0 04/25/19 00:45: Sodium 137, Potassium 5.0, Chloride 103, Carbon Dioxide 28.0, Anion Gap 6, BUN 10, Creatinine 0.72, Estim Creat Clear Calc 77.59, Est GFR (MDRD) Af Amer 114, Est GFR (MDRD) Non-Af 94, BUN/Creatinine Ratio 13.8, Glucose 310 H, Calcium 8.7 04/25/19 00:45: Lactic Acid 2.6 H* Clinical Impression(s) from Imaging Studies Chest X-Ray 04/25/19 00:29 IMPRESSION: Stable chest radiograph without evidence for focal consolidative lung changes. Electronically Signed: Vince Monte, at 1:24 EST Tel , Service support , Abdomen/Pelvis CT 04/25/19 03:50 IMPRESSION: Negative unenhanced CT of the abdomen and pelvis for acute intra-abdominal abnormality. Electronically Signed: Vince Monte, at 4:43 EST Tel , Service support , Chest CTA 04/25/19 03:50 IMPRESSION: Negative CTA chest examination for a demonstrated pulmonary embolism or arterial dissection. Trace bilateral pleural effusions with mild areas of groundglass lung opacities may be due to underlying edema. Electronically Signed: Vince Monte at 4:49 EST Tel , Service support , Current Medications Sodium Chloride () 1,000 mls @ 150 mls/hr IV .Q6H40M [facility] Assessment/Plan All Active Problems (Last Updated 04/25/19 @ 05:56 by Gael Woodard MD) Bronchitis with bronchospasm (Acute) Hypoxia (Acute) This is a 43 years old female patient presented to the emergency room because of shortness of breath, wheezing and cough and she was found to have acute bronchitis with bronchospasm and hypoxia as well as mild lactic acidosis. #1 acute bronchitis with bronchospasm/hypoxia: Probably viral. Chest x-ray and CTA chest showed no infiltrate, no PE or dissection on CTA chest. Patient is chronically tachycardic, unknown etiology and she has been on metoprolol. EKG revealed sinus tachycardia, no acute skin changes. Plan: Admit to [facility] for observation, telemetry monitoring, DuoNeb every 4 hours, albuterol PRN, prednisone 40 mg p.o. daily, respiratory panel for viruses, chest physiotherapy, incentive spirometer, Robitussin, Tylenol PRN. #2 mild lactic acidosis: This is probably due to hypoxia. I doubt sepsis or severe sepsis. Lactic acid 2.6. Patient received 1 dose of doxycycline in the ED. She is afebrile, minimal leukocytosis. Plan: IV fluids, repeat lactic acid in 3 hours, follow blood cultures.. #3 chronic tachycardia: Baseline heart rate has been around 110-120, has been in this range. Continue metoprolol. #4 type 2 diabetes mellitus: ADA diet, Accu-Cheks, insulin sliding scale, continue metformin and detemir insulin nightly. #5 hypertension: Blood pressure stable, continue N metoprolol. #6 anxiety/depression: Continue melatonin and duloxetine.. #7 hyperlipidemia: Continue statins. #8 DVT prophylaxis, subcu Lovenox. This note was generated with [employer] dictation software. It may contain incorrect words, spelling, and punctuation that were not noted in checking the note before signing. Code Visit OBSV E&M: 47844 Initial observation care L2
[2019-04-25] MEDS: 0.9% Normal Saline 1,000 ML 100 ML IV ×2 (06:52→16:41)
[2019-04-25] MEDS: Insulin Lispro 100 UNIT/ML INSULN.PEN SC ×3 (06:59→16:41)
[2019-04-25 07:01] LABS: Bedside Glucose 240 mg/dL (70-110)
--- NOTE | 2019-04-25 08:01 | NURSING ---
Report given to receiving nurse Raven on MS3. Tom BOATENG
[2019-04-25] MEDS: Aspirin E.C. 81 MG Tablet PO (09:48)
[2019-04-25] MEDS: Metoprolol(XL)Succ 50 MG Tablet PO (09:48)
[2019-04-25] MEDS: metFORMIN HCl 1,000 MG Tablet 1000 MG PO ×2 (09:48→16:45)
[2019-04-25] MEDS: Gabapentin 800 MG Tablet PO ×3 (09:48→16:43)
[2019-04-25] MEDS: DULoxetine Hcl 60 MG Capsule PO ×2 (09:48→22:04)
[2019-04-25] MEDS: guaiFENesin 10 ML UDC (200MG/10ML) PO ×2 (09:56→20:58)
--- NOTE | 2019-04-25 10:04 | PCM.PN.BLA ---
Progress Note Patient is a 43-year-old lady with past medical history sent in for diabetes mellitus type 2, dyslipidemia hypertension admitted with progressive shortness of breath. An assessment of asthmatic bronchitis made admitted to regular nursing floor where patient is currently being managed Patient has been seen and examined. Her initial assessment including history and physical, diagnostic data and management orders reviewed will follow. STROKE Vital Signs/Narrative: Vital Signs Temp Pulse Resp BP Pulse Ox 04/25/19 09:48 116 H 04/25/19 09:00 98.3 F 116 H 18 107/66 97 04/25/19 07:18 117 H 04/25/19 06:46 98.1 F 109 H 18 109/44 L 96 04/25/19 06:37 115 H
[2019-04-25] MEDS: 0.9% Saline Lock 10 ML Syringe IV (10:06)
[2019-04-25 11:11] LABS: Bedside Glucose 393 mg/dL (70-110)
--- NOTE | 2019-04-25 11:13 | CPS ---
Pt wears a CPAP of [id number] at home @[facility]. family will bring in her machine for tonight.
--- NOTE | 2019-04-25 16:03 | CHAPLAIN ---
Type of Pastoral Visit _x__ Initial Visit ___ Follow-up Visit ___ On-call Visit ___ General Patient Visit ___ Spiritual Assessment ___ Family Conference ___ Bereavement ___ Rapid Response ___ Code Blue ___ Other (describe below) Pastoral Care Referral From _x__ Patient ___ Family ___ Nurse ___ Physician ___ Milking Worker ___ Health Assessment And Treatment Teacher ___ Other (describe below) Sacrament/Intervention _x__ Active listening ___ Anointing ___ Religion ___ Bereavement ___ Communion ___ Christine exploration ___ ___ Life review _x__ Prayer ___ Reconciliation ___ Sacrament of Sick _x__ Supportive presence ___ Wedding ___ Other (describe below) Pastoral Comments
[2019-04-25 16:50] LABS: Bedside Glucose 350 mg/dL (70-110)
[2019-04-25] MEDS: Acetaminophen 325 MG Tablet 650 MG PO (20:58)
[2019-04-25] MEDS: MELATONIN 10 MG TABLET PO (22:04)
[2019-04-25] MEDS: Amitriptyline 100 MG Tablet PO (22:04)
[2019-04-25] MEDS: Atorvastatin Calcium 10 MG Tablet PO (22:04)
[2019-04-25 22:51] LABS: Bedside Glucose 293 mg/dL (70-110)
[2019-04-26] VITALS (8 sets, daily range): BP systolic 114–123; BP diastolic 80–88; PULSE 96–103; RESP 16–20; TEMP 36.3–36.6; O2SAT 95–98
[2019-04-26] MEDS: Insulin Lispro 100 UNIT/ML INSULN.PEN SC ×2 (00:12→05:55)
[2019-04-26 00:21] LABS: Bedside Glucose 276 mg/dL (70-110)
[2019-04-26] MEDS: 0.9% Normal Saline 1,000 ML 100 ML IV (02:17)
[2019-04-26] MEDS: Enoxaparin 40 MG/0.4 ML Syringe SC (05:56)
[2019-04-26 06:11] LABS: Bedside Glucose 233 mg/dL (70-110)
[2019-04-26 06:35] LABS: Hematocrit 39.8 % (37-47); Hemoglobin 12.1 g/dL (12.0-15.0); Mean Corp Hgb Conc 30.4 g/dL (32-36); Mean Corpuscular Hgb 27.4 pg (27.0-32.0); Mean Platelet Vol. 11.3 fl (6.2-12.0); Platelet Count 273 K/mm3 (150-450); RBC Distribution Width CV 13.7 % (11.6-14.6); RBC Distribution Width SD 44.3 fl (35.1-43.9); Red Blood Count 4.42 M/mm3 (4.2-5.4)
[2019-04-26 06:56] LABS: Anion Gap 7 (5-15); BUN 29 mg/dL (7-18); BUN/Creat Ratio 47.4 RATIO (10-20); Chloride 109 mmol/L (98-107); Creatinine, Serum 0.61 mg/dL (0.55-1.02); EST Glomerular Filtration Rate 114 mL/min (>60); Est Glom Filt Rate - Afr Amer 138 mL/min (>60); Estimated Creatinine Clearance 91.58 ml/min; Glucose 257 mg/dL (74-106); Magnesium 1.7 mg/dL (1.6-2.6); Potassium 4.1 mmol/L (3.5-5.1); Sodium Level 139 mmol/L (136-145)
[2019-04-26] MEDS: Ipratropium/Albuterol Sulfate 3 ML AMPUL.NEB INHALATION ×2 (07:20→10:17)
[2019-04-26] MEDS: DULoxetine Hcl 60 MG Capsule PO (08:38)
[2019-04-26] MEDS: Glucerna Shake 120 ML LIQUID PO (08:38)
[2019-04-26] MEDS: metFORMIN HCl 1,000 MG Tablet 1000 MG PO (08:38)
[2019-04-26] MEDS: Aspirin E.C. 81 MG Tablet PO (08:38)
[2019-04-26] MEDS: Metoprolol(XL)Succ 50 MG Tablet PO (08:38)
[2019-04-26] MEDS: Gabapentin 800 MG Tablet PO (08:39)
[2019-04-26] MEDS: predniSONE 20 MG Tablet 40 MG PO (08:39)
--- NOTE | 2019-04-26 10:11 | PCM.DC ---
- Discharge Diagnoses Current Active Problems: Current Active and Chronic Problems (Last Updated 04/25/19 @ 05:56 by Gael Woodard MD) Bronchitis with bronchospasm (Acute) Hypoxia (Acute) You will use the following diet at home:: Regular Your food should be the consistency of: Regular Discharge Activity: May Not Drive - FOR 3 DAYS Call your doctor if you observe: Fever of 101 or Higher, Coldness, Increased Pain, Numbness or Tingling, Change in Color, Inability to urinate, Inability to have a bowel movement, Shortness of breath, Dizziness, Fainting spells, Swelling in the ankles, Chest pain, Prolonged hiccoughing, Increased palpitations (irregular heartbeat), Calf discomfort, Uncontrolled pain Allergies/Adverse Reactions: Allergies pregabalin [From Lyrica] Allergy (Verified 05/10/18 11:20) Other SI sulfamethoxazole [From Bactrim] Allergy (Verified 05/10/18 11:20) Rash tramadol HCl [From Ultram] Allergy (Verified 05/10/18 11:20) Swelling trimethoprim [From Bactrim] Allergy (Verified 05/10/18 11:20) Rash vancomycin Allergy (Verified 05/10/18 11:20) Swelling Medications to take at Discharge Aspirin E.C. [Ecotrin] 81 mg PO DAILY@0800 07/28/17 multivitamin 1 cap PO DAILY 06/28/18 cholecalciferol (vitamin D3) 50 mcg (2,000 unit) capsule 2,000 unit PO DAILY #90 cap 11/03/18 duloxetine 60 mg capsule,delayed release 60 mg PO BID #180 cap 11/03/18 amitriptyline 100 mg tablet 100 mg PO QHS #90 tab 12/04/18 gabapentin 800 mg tablet 800 mg PO TID #270 tab 12/04/18 simvastatin 20 mg tablet 20 mg PO QHS #90 tab 02/20/19 melatonin 10 mg tablet 10 mg PO QHS #30 tab 03/22/19 dulaglutide 1.5 mg/0.5 mL subcutaneous pen injector 1.5 mg SC QWEEK #2 ml 04/24/19 insulin detemir U-100 100 unit/mL (3 mL) subcutaneous pen 38 unit SUBCUT QHS #15 ml 04/24/19 Metformin HCl [Glucophage] 1,000 mg PO BID 04/25/19 Metoprolol Succinate 50 mg PO DAILY 04/25/19 Guaifenesin [Mucinex] 1,200 mg PO BID #14 tab.er.12h 04/26/19 The following prescriptions were given: Guaifenesin [Mucinex] 1,200 mg PO BID #14 tab.er.12h Transmission Status: Pending to [facility] [place] - [id number] Primary Care Physician: Nevaeh Oconnor MD [Primary Care Provider] - Please follow up with your Primary Care Physician in: IN 2 WEEKS Test Results: Test results from this visit will be discussed in further detail at your follow-up appointment, if applicable.
--- NOTE | 2019-04-26 10:15 | DS.PCM_ITS ---
Discharge Date and Diagnosis Date of Admission: 04/25/19 Date of Discharge: 04/26/19 - Primary Discharge Diagnosis Active and Suspected Problems (Last Updated 04/25/19 @ 05:56 by Gael Woodard MD) Bronchitis with bronchospasm (Acute) Hypoxia (Acute) Sepsis secondary to acute viral bronchitis, rhinovirus - Secondary Discharge Diagnosis Chronic Problems (Last Updated 04/25/19 @ 05:56 by Gael Woodard MD) Essential hypertension (Chronic) ANA (obstructive sleep apnea) (Chronic) Tachycardia (Chronic) Depression with anxiety (Chronic) Neuropathy (Chronic) Nonhealing surgical wound (Chronic) Obesity (Chronic) Open wound of abdominal wall with complication (Chronic) diabetic abscess wound right lower abdominal wall Open wound of neck with complication (Chronic) diabetic abscess wound right posterior neck diabetic abscess wound left posterior neck Abdominal panniculus, symptomatic (Chronic) Hyperlipidemia (Chronic) Morbid obesity due to excess calories (Chronic) History of MRSA infection (Chronic) Type 2 diabetes mellitus (Chronic) Hospital Course and Treatment Operations: - Summary of Care Provided: The patient is a 43 year old F with history of diabetes mellitus type 2, dyslipidemia hypertension [facility] worsening of shortness of breath consistent with acute bronchitis. Patient does not have history of asthma, COPD or chronic lung disease. Chest x-ray and CTA chest done shows no infiltrate, PE or dissection. EKG sinus tachycardia with no acute ST-T changes. Patient was empirically started on DuoNeb, prednisone 40 mg, incentive spirometry, conservative management along with chest physiotherapy. Patient also with mild lactic acidosis, 2.6 secondary to hypoxia or acute bronchitis, and respiratory panel came positive for rhinovirus therefore sepsis (tachycardia, tachypnea, hypoxia and lactic acidosis) secondary to viral bronchitis, rhinovirus. Hypoxia resolved. Patient other comorbidities diabetes mellitus type 2, hypertension dyslipidemia anxiety and depression. Diabetes mellitus is uncontrolled, glucose was 310 in BMP. On Levemir, dulaglutide, metformin. Glucose was controlled. Blood pressure is controlled. Discharge medication reconciliation done. Discharge follow-up instructions completed. Discharge process discussed with the patient and all questions were answered to patient's satisfaction. Total time spent, exact 35 minutes on discharge meds reconciliation, examination, coordination of care with nurses and ancillary staff, review of imaging and blood test and discussion with the patient and her near the bedside on follow-up instructions - Physical Exam Vitals/I&O's: Vital Signs Temp Pulse Resp BP Pulse Ox 97.4 F L 96 18 123/88 H 96 04/26/19 02:14 04/26/19 08:38 04/26/19 07:20 04/26/19 02:14 04/26/19 07:20 Oxygen Flow Rate (L/min) 1 Oxygen Delivery Method Room Air Weight: 216 lb 1.589 oz Body Mass Index (BMI) 40.8 Finger Stick Blood Glucose 197 Intake and Output for Last 24 Hours 04/24/19 04/25/19 04/26/19 23:59 23:59 23:59 Intake Total 5481.67 / 5481.67 960 / 960 Output Total 250 / 250 200 / 200 Balance 5231.67 / 5231.67 760 / 760 General: Alert, Oriented x3, Cooperative HEENT: Atraumatic, PERRLA, EOMI, Normocephalic Neck: Supple, No JVD, Negative Carotid Bruits Lungs: Clear to auscultation, No rhonchi, No wheeze, No rales, Diminished - Air entry slightly diminished Cardiovascular: Regular rate, Regular Rhythm, Normal S1, Normal S2, No murmurs Abdomen: Bowel Sounds Present, Soft, Non Tender, Non-Distended Extremities: No edema, Capillary Refill Less than 3 Seconds Skin: No rashes, No breakdown Musculoskeletal: No Tenderness to Palpation of Joints or Extremities Neurological: Cranial nerves II-XII grossly intact, Neuro grossly intact Psych/Mental Status: Normal Affect, Appropriate Microbiology Past 72 Hours 04/25/19 07:41 Mucosa - Nose Respiratory Panel (PCR) - Final Rhinovirus 04/25/19 00:41 Mucosa - Nasopharyngeal Influenza Types A,B Direct FA (DAVID) - Final Laboratory Results 04/25/19 11:02: POC Glucose 393 H 04/25/19 16:39: POC Glucose 350 H 04/25/19 22:00: POC Glucose 293 H 04/26/19 00:11: POC Glucose 276 H 04/26/19 05:53: POC Glucose 233 H 04/26/19 06:18: WBC 12.0 H, RBC 4.42, Hgb 12.1, Hct 39.8, MCV 90.0, MCH 27.4, MCHC 30.4 L, RDW Std Deviation 44.3 H, RDW Coeff of Zeny 13.7, Plt Count 273, MPV 11.3 04/26/19 06:18: Sodium 139, Potassium 4.1, Chloride 109 H, Carbon Dioxide 23.0, Anion Gap 7, BUN 29 H, Creatinine 0.61, Estim Creat Clear Calc 91.58, Est GFR (MDRD) Af Amer 138, Est GFR (MDRD) Non-Af 114, BUN/Creatinine Ratio 47.4 H, Glucose 257 H, Calcium 8.0 L, Magnesium 1.7 Current Medications Acetaminophen (Tylenol) 650 mg PO Q6H PRN PRN PRN Reason: Pain Score 1-3/Temp > 100.7 F Last Admin: 04/25/19 20:58 Dose: 650 mg Documented by: Albuterol Sulfate (Ventolin Aerosols) 2.5 mg INHALATION Q2H PRN PRN PRN Reason: Shortness of breath, wheezing Albuterol/Ipratropium (Duoneb) 3 ml INHALATION Q4HWA.RT [facility] Last Admin: 04/26/19 07:20 Dose: 3 ml Documented by: Amitriptyline HCl (Elavil) 100 mg PO QHS [facility] Last Admin: 04/25/19 22:04 Dose: 100 mg Documented by: Aspirin (Ecotrin) 81 mg PO DAILY@0800 [facility] Last Admin: 04/26/19 08:38 Dose: 81 mg Documented by: Atorvastatin Calcium (Lipitor) 10 mg PO QHS [facility] Last Admin: 04/25/19 22:04 Dose: 10 mg Documented by: Duloxetine HCl (Cymbalta) 60 mg PO BID [facility] Last Admin: 04/26/19 08:38 Dose: 60 mg Documented by: Enoxaparin Sodium (Lovenox) 40 mg SC DAILY@0600 [facility] Last Admin: 04/26/19 05:56 Dose: 40 mg Documented by: Gabapentin (Neurontin) 800 mg PO TIDCM [facility] Last Admin: 04/26/19 08:39 Dose: 800 mg Documented by: Glucagon () 1 mg IM .X1 PRN PRN Reason: Hypoglycemia Guaifenesin (Robitussin) 10 ml PO Q6H PRN PRN PRN Reason: COUGH/CONGESTION Last Admin: 04/25/19 20:58 Dose: 10 ml Documented by: Sodium Chloride () 1,000 mls @ 100 mls/hr IV .Q10H [facility]ABEL Last Admin: 04/26/19 02:17 Dose: 100 mls/hr Documented by: Sodium Chloride () 250 mls @ 15 mls/hr IV .[id number] PRN PRN Reason: Saline Flush Sodium Chloride () 250 mls @ 15 mls/hr IV .[id number] PRN PRN Reason: Additional IVPB Infusion Dextrose (Dextrose 10%-Water) 250 mls @ 999 mls/hr IV .Q16M PRN; Protocol PRN Reason: HYPOGLYCEMIA Insulin Glargine (Lantus ([facility])) 38 units SC QHS [facility] Last Admin: 04/25/19 22:01 Dose: 38 units Documented by: Insulin Human Lispro (Humalog Kwikpen ([facility])) 0 unit SC Q6 [facility]; Protocol Last Admin: 04/26/19 05:55 Dose: 4 u Documented by: Melatonin (Melatonin) 10 mg PO QHS [facility] Last Admin: 04/25/19 22:04 Dose: 10 mg Documented by: Metformin HCl (Glucophage) 1,000 mg PO BIDCM [facility] Last Admin: 04/26/19 08:38 Dose: 1,000 mg Documented by: Metoprolol Succinate (Toprol Xl (Beta Zelalem)) 50 mg PO DAILY [facility] Last Admin: 04/26/19 08:38 Dose: 50 mg Documented by: Nutritional Formula (Lactose Free) (Glucerna Shake) 120 ml PO TIDCM [facility] Last Admin: 04/26/19 08:38 Dose: 120 ml Documented by: Ondansetron HCl (Zofran) 4 mg IV Q8H PRN PRN PRN Reason: NAUSEA/VOMITING Prednisone () 40 mg PO DAILY@0800 [facility] Last Admin: 04/26/19 08:39 Dose: 40 mg Documented by: Sodium Chloride () 10 - 40 ml IV UD PRN PRN Reason: SALINE FLUSH Last Admin: 04/25/19 10:06 Dose: 10 ml Documented by: Discharge Activity: May Not Drive - FOR 3 DAYS Call your doctor if you observe: Fever of 101 or Higher, Coldness, Increased Pain, Numbness or Tingling, Change in Color, Inability to urinate, Inability to have a bowel movement, Shortness of breath, Dizziness, Fainting spells, Swelling in the ankles, Chest pain, Prolonged hiccoughing, Increased palpitations (irregular heartbeat), Calf discomfort, Uncontrolled pain Home Medications: Medications to take at Discharge Aspirin E.C. [Ecotrin] 81 mg PO DAILY@0800 07/28/17 multivitamin 1 cap PO DAILY 06/28/18 cholecalciferol (vitamin D3) 50 mcg (2,000 unit) capsule 2,000 unit PO DAILY #90 cap 11/03/18 duloxetine 60 mg capsule,delayed release 60 mg PO BID #180 cap 11/03/18 amitriptyline 100 mg tablet 100 mg PO QHS #90 tab 12/04/18 gabapentin 800 mg tablet 800 mg PO TID #270 tab 12/04/18 simvastatin 20 mg tablet 20 mg PO QHS #90 tab 02/20/19 melatonin 10 mg tablet 10 mg PO QHS #30 tab 03/22/19 dulaglutide 1.5 mg/0.5 mL subcutaneous pen injector 1.5 mg SC QWEEK #2 ml 04/24/19 insulin detemir U-100 100 unit/mL (3 mL) subcutaneous pen 38 unit SUBCUT QHS #15 ml 04/24/19 Metformin HCl [Glucophage] 1,000 mg PO BID 04/25/19 Metoprolol Succinate 50 mg PO DAILY 04/25/19 Guaifenesin [Mucinex] 1,200 mg PO BID #14 tab.er.12h 04/26/19 Following Prescrptions Were Given to Patient: Guaifenesin [Mucinex] 1,200 mg PO BID #14 tab.er.12h Transmission Status: Received by [facility] [id number] Primary Care Physician: Nevaeh Oconnor MD [Primary Care Provider] - Please follow up with your Primary Care Physician in: IN 2 WEEKS Medical Necessity - Tobacco Use Smoking Status: Never smoker Meaningful Use Info Meaningful Use Diagnoses (Choose all that apply): None applicable Code Visit OBSV E&M: 26551 Observation care discharge
== END 2019-04-26 11:40 | disposition home or self-care (01) ==
LOC: ED 05:19 → PCU 05:52 → MS3 08:45
PROVIDERS: Internal Medicine; Admitting Provider Hospitalist; Emergency Provider Emergency Medicine; PCP Internal Medicine; Visit Provider Internal Medicine
DX: A41.89 Other specified sepsis (principal); J20.6 Acute bronchitis due to rhinovirus; R09.02 Hypoxemia; R94.31 Abnormal electrocardiogram [ECG] [EKG]; R00.0 Tachycardia, unspecified; E78.5 Hyperlipidemia, unspecified; G47.33 Obstructive sleep apnea (adult) (pediatric); I10 Essential (primary) hypertension; E66.01 Morbid (severe) obesity due to excess calories; E11.40 Type 2 diabetes mellitus with diabetic neuropathy, unspecified; E87.2 Acidosis; F41.8 Other specified anxiety disorders; K58.9 Irritable bowel syndrome, unspecified; G43.909 Migraine, unspecified, not intractable, without status migrainosus; M32.9 Systemic lupus erythematosus, unspecified; M19.90 Unspecified osteoarthritis, unspecified site; Z79.899 Other long term (current) drug therapy; Z79.4 Long term (current) use of insulin; Z79.82 Long term (current) use of aspirin; Z68.41 Body mass index [BMI] 40.0-44.9, adult; Z71.3 Dietary counseling and surveillance
CPT/HCPCS: 36415; 71045; 71275; 74176; 80048; 82962; 83605; 83735; 85025; 85027; 87040; 87633; 87804; 93005; 94640; 96361; 96372; 96374; 96375; 97802; 99218; 99251; 99285; J7030; Q9967; A4216; G0378; G0463; J2405

== ENCOUNTER 2019-04-29 17:16 | Emergency (ER) | payer OTHER, SELFPAY ==
[2019-04-25 06:27] VITALS: BMI 40.8
[2019-04-29 17:17] VITALS: BP 163/78; PULSE 124; RESP 20; TEMP 35.9; O2SAT 96; BMI 42.4
--- NOTE | 2019-04-29 17:33 | ED.DCSUM_ITS ---
- ER Visit Summary Date of Service: 04/29/19 Chief Complaint: Shortness of breath and wheezing History of Present Illness: The patient is a 43 F history of diabetes, hypertension, depression anxiety and sleep apnea. Patient was just admitted to the hospital for bronchitis with bronchospasm. She has no history of asthma or COPD. She is not on oxygen. Prior to admission on the she had negative chest x-ray and a negative CTA of her chest. Lab work was unremarkable. States that she started having trouble breathing again today. No hemoptysis. Said he has trouble getting a deep breath. Physical Examination: Middle-aged female vital signs are stable. Tachycardia 124. Pulse ox 90% on room air no signs of hypoxia. H EENT exam unremarkable. Neck nontender no JVD. No lymphadenopathy. Lungs prolonged expiratory phase bilaterally. Equal symmetrical. Expiratory wheezes. No rales or rhonchi. Heart tachycardic rate about 120. No murmur. Abdomen soft nontender normal bowel sounds no peritoneal signs. Patient moving all 4 extremities. Calves nontender without edema no cords. Back nontender. Neurologically she is awake alert with no focal motor deficits. Test Results: I reviewed her most recent admission and work-up. X-ray was obtained. There is some density seen in the right lower lobe which is been seen on prior films. There was no infiltrate on the prior films and I do not feel this is pneumonia at this time. She also had a recent CTA. Emergency Department Course and Treatment: Patient will be treated with p.o. prednisone and both DuoNeb and albuterol aerosol treatments and reassess. Patient is doing well at 1939 on the discharge to home. Treatment Plan: Prednisone daily for the next week. Albuterol for home nebulizer. Follow-up if not improving or return if worse. Disposition: Discharge Impression: Status post bronchitis with bronchospasm This note was generated with [employer] dictation software. It may contain incorrect words, spelling, and punctuation that were not noted in review of the chart prior to signing ED Disposition - Plan for ED Patient: Referrals: Nevaeh Oconnor MD [Primary Care Provider] -
[2019-04-29] MEDS: predniSONE 20 MG Tablet 60 MG PO (17:40)
--- NOTE | 2019-04-29 17:43 | EKG12_ITS ---
Test Reason : Blood Pressure : / mmHG Vent. Rate : 117 BPM Atrial Rate : 117 BPM P-R Int : 144 ms QRS Dur : 094 ms QT Int : 330 ms P-R-T Axes : 021 018 001 degrees QTc Int : 460 ms Sinus tachycardia Possible Left atrial enlargement Borderline ECG Confirmed by KEVIN ORLANDO, EMMA ([id number]), staff editor KAREN BACA ([id number]) on 05/01/2019 11:02:21 AM Referred By: Confirmed By:EMMA BROWN MD
[2019-04-29] MEDS: Ipratropium/Albuterol Sulfate 3 ML AMPUL.NEB INHALATION (17:47)
[2019-04-29] MEDS: Albuterol 2.5 MG/3 ML VIAL.NEB. INHALATION ×3 (17:47→18:34)
[2019-04-29 17:49] VITALS: PULSE 122; RESP 26
[2019-04-29 18:04] VITALS: PULSE 122; RESP 23
[2019-04-29 18:06] VITALS: RESP 20; O2SAT 93
[2019-04-29 18:34] VITALS: PULSE 122; RESP 20
--- NOTE | 2019-04-29 19:12 | RAD_ITS ---
STUDY: X-RAY CHEST REASON FOR EXAM: Female, 43 years old. PT SEEN HERE 04/27/19 DX WITH BRONCHITIS, WOKE UP TODAY NOT FEELING WELL, PAIN IN CHEST WITH DEEP BREATH AND FEELS SOB. TECHNIQUE: PA and lateral chest. COMPARISON: 04/25/2019. FINDINGS: Respiratory motion on the lateral view. No pleural effusion. Ill-defined opacity in the right lower lobe suspicious for pneumonia. The lungs are otherwise clear. Normal size heart. Normal mediastinum and paulette. Normal visualized pulmonary arteries. Normal visualized aortic arch and descending thoracic aorta. Mild thoracic dextroscoliosis. Soft tissues and bony structures are otherwise unremarkable. RAD/Chest PA and Lateral IMPRESSION: Findings suspicious for right lower lobe pneumonia. Electronically Signed: Katharina Jacobo MD at 19:42 EST Tel , Service support ,
--- NOTE | 2019-04-29 19:40 | ED.DEP ---
ED Disposition - Plan for ED Patient: Disposition: Home or Assisted Living Instructions: BRONCHITIS with Wheezing (Adult) Prescriptions: Prednisone [Deltasone] 40 mg PO DAILY 7 Days #7 tab Prescription Printed Albuterol Aerosols [Ventolin Aerosols] 2.5 mg INHALATION Q4H PRN #25 vial Prescription Printed Referrals: Nevaeh Oconnor MD [Primary Care Provider] - 3-5 Days Additional Instructions: Prednisone 40 mg/day till gone. Use your nebulizer at home. Follow-up with your doctor
[2019-04-29 19:52] VITALS: BP 136/105; PULSE 121; RESP 20; O2SAT 95
== END 2019-04-29 19:53 | disposition home or self-care (01) ==
PROVIDERS: Emergency Provider Emergency Medicine; PCP Internal Medicine
DX: J98.01 Acute bronchospasm (principal); I10 Essential (primary) hypertension; E11.9 Type 2 diabetes mellitus without complications; F32.9 Major depressive disorder, single episode, unspecified; F41.9 Anxiety disorder, unspecified; Z79.82 Long term (current) use of aspirin; Z79.4 Long term (current) use of insulin; Z79.84 Long term (current) use of oral hypoglycemic drugs
CPT/HCPCS: 71046; 93005; 94640; 99251; 99284; G0463

== ENCOUNTER → 2019-05-22 09:48 | Outpatient (CLI) | payer OTHER, SELFPAY ==
[2019-05-22 09:12] VITALS: BMI 42.3
[2019-05-22 12:20] LABS: Absolute Lymphocyte Count 2.91 X10^3/uL (0.83-4.51); Absolute Neutrophil Count 5.5 X10^3/uL (2.0-7.7); Basophil# 0.03 X10^3/uL; Basophil% 0.3 % (0-1); Eosinophil# 0.16 X10^3/uL; Eosinophils% 1.7 % (0-5); Hematocrit 42.1 % (37-47); Hemoglobin 12.5 g/dL (12.0-15.0); Lymphocyte # 2.91 X10^3/ul (4.0); Mean Corp Hgb Conc 29.7 g/dL (32-36); Mean Corpuscular Hgb 26.7 pg (27.0-32.0); Mean Platelet Vol. 12.3 fl (6.2-12.0); Monocyte# 0.77 X10^3/uL; Monocyte% 8.2 % (0-10); NRBC Flagged by Analyzer 0 % (0-5); Neutrophil # 5.49 X10^3/uL (2.7-7.7); Neutrophil % 58.5 % (47-70); Platelet Count 258 K/mm3 (150-450); RBC Distribution Width CV 13.9 % (11.6-14.6); RBC Distribution Width SD 45.5 fl (35.1-43.9); Red Blood Count 4.68 M/mm3 (4.2-5.4); White Blood Count 9.4 K/mm3 (4.4-11.0)
[2019-05-22 12:32] LABS: ALB/GLOB Ratio 0.8 RATIO (0.9-2.4); AST(SGOT) 23 U/L (15-37); Alanine Aminotransfer ALT/SGPT 47 U/L (13-56); Albumin, Serum 3.2 g/dL (3.2-5.0); Alkaline Phosphatase 119 U/L (45-117); Anion Gap 6 (5-15); BUN 14 mg/dL (7-18); BUN/Creat Ratio 20.6 RATIO (10-20); Chloride 103 mmol/L (98-107); Creatinine, Serum 0.68 mg/dL (0.55-1.02); EST Glomerular Filtration Rate 101 mL/min (>60); Est Glom Filt Rate - Afr Amer 122 mL/min (>60); Globulin 3.9 g/dL (2.2-4.2); Glucose 208 mg/dL (74-106); Potassium 4.1 mmol/L (3.5-5.1); Protein, Total 7.1 g/dL (6.4-8.2); Sodium Level 137 mmol/L (136-145)
== END ==
PROVIDERS: PCP Internal Medicine; Referring Provider Nurse Practitioner Family; Visit Provider Nurse Practitioner Family
DX: R06.00 Dyspnea, unspecified (principal)
CPT/HCPCS: 36415; 80053; 85025

== ENCOUNTER → 2019-05-23 09:36 | Outpatient (CLI) | payer OTHER, SELFPAY ==
[2019-05-22 17:05] VITALS: BMI 42.4
--- NOTE | 2019-05-23 09:38 | RAD_ITS ---
EXAM DESCRIPTION: PORTABLE AP CHEST CLINICAL HISTORY: 43 years Female, pneumonia x 3 weeks, pt is sob pneumonia x 3 weeks, pt is sob COMPARISON: Previous chest obtained on 04/29/2019 FINDINGS: Moderate to severe dextroscoliosis is noted involving the thoracic spine. The rest of the thorax is intact.The heart is mildly enlarged and mediastinums appear to be within normal limits. The lungs appear to be well areated without evidence of pneumonic consolidation or pleural effusion. RAD/Chest PA and Lateral IMPRESSION: No acute pathology Electronically Signed: Slim Smith, at 11:06 EST Tel , Service support ,
== END ==
PROVIDERS: PCP Internal Medicine; Referring Provider Nurse Practitioner Family; Visit Provider Nurse Practitioner Family
DX: R06.00 Dyspnea, unspecified (principal)
CPT/HCPCS: 71046

== ENCOUNTER 2019-05-30 16:22 | Inpatient (IN) | payer OTHER, SELFPAY ==
[2019-05-22 17:05] VITALS: BMI 42.4
[2019-05-30] VITALS (12 sets, daily range): BP systolic 103–164; BP diastolic 34–93; PULSE 108–133; RESP 12–41; TEMP 36.3–37.1; O2SAT 88–96; BMI 40.8; BMI 43.5
--- NOTE | 2019-05-30 16:30 | EKG12_ITS ---
Test Reason : SOB Blood Pressure : / mmHG Vent. Rate : 120 BPM Atrial Rate : 138 BPM P-R Int : 000 ms QRS Dur : 096 ms QT Int : 448 ms P-R-T Axes : 000 059 028 degrees QTc Int : 633 ms Sinus tachycardia Abnormal ECG Confirmed by VIRGILIO ORLANDO, SARBJIT ([id number]), editor department LADONNA BOWMAN ([id number]) on 06/01/2019 8:13:03 AM Referred By: KOLTON Confirmed By:LEXIS POOLE MD
--- NOTE | 2019-05-30 16:42 | RAD_ITS ---
STUDY: X-RAY CHEST REASON FOR EXAM: Female, 43 years old. Shortness of breath. TECHNIQUE: PA and lateral views of the chest. COMPARISON: May 23, 2019. FINDINGS: Mildly decreased inspiratory effort. There is right basilar atelectasis. There is no new mass or infiltrate. There is no demonstrated pleural abnormality. There is mild cardiac enlargement. Normal mediastinum and paulette. Normal visualized pulmonary arteries. Normal visualized aortic arch and descending thoracic aorta. There is scoliosis and degenerative changes of the thoracic spine. Normal visualized ribs, clavicles, and shoulders. There is no demonstrated abnormality of the visualized soft tissue structures of the upper abdomen. RAD/Chest PA and Lateral IMPRESSION: 1. Mild cardiomegaly. 2. Limited inspiration with right basilar atelectasis. Electronically Signed: Sushant Dillon DO at 16:59 EST Tel [phone], Service support ,
[2019-05-30 17:21] LABS: Absolute Lymphocyte Count 2.12 X10^3/uL (0.83-4.51); Absolute Neutrophil Count 5.8 X10^3/uL (2.0-7.7); Basophil# 0.03 X10^3/uL; Basophil% 0.3 % (0-1); Eosinophil# 0.11 X10^3/uL; Eosinophils% 1.3 % (0-5); Hematocrit 43.4 % (37-47); Hemoglobin 13.1 g/dL (12.0-15.0); Lymphocyte # 2.12 X10^3/ul (4.0); Lymphocyte % 24.1 % (19-41); Mean Corp Hgb Conc 30.2 g/dL (32-36); Mean Corpuscular Hgb 26.8 pg (27.0-32.0); Mean Corpuscular Volume 88.9 fL (81-99); Mean Platelet Vol. 11.3 fl (6.2-12.0); Monocyte# 0.71 X10^3/uL; Monocyte% 8.1 % (0-10); NRBC Flagged by Analyzer 0 % (0-5); Neutrophil # 5.77 X10^3/uL (2.7-7.7); Neutrophil % 65.7 % (47-70); Platelet Count 252 K/mm3 (150-450); RBC Distribution Width CV 14.4 % (11.6-14.6); RBC Distribution Width SD 45.4 fl (35.1-43.9); Red Blood Count 4.88 M/mm3 (4.2-5.4); White Blood Count 8.8 K/mm3 (4.4-11.0)
[2019-05-30] MEDS: Albuterol 2.5 MG/3 ML VIAL.NEB. INHALATION ×3 (17:35→18:51)
[2019-05-30] MEDS: Ipratropium/Albuterol Sulfate 3 ML AMPUL.NEB INHALATION ×2 (17:35→22:12)
[2019-05-30] MEDS: MethylPREDNISolone 125 MG/2 ML Vial IV (17:35)
[2019-05-30 17:38] LABS: Anion Gap 7 (5-15); BUN 9 mg/dL (7-18); BUN/Creat Ratio 11.9 RATIO (10-20); Calcium,Total 8.8 mg/dL (8.5-10.1); Chloride 104 mmol/L (98-107); Creatinine, Serum 0.76 mg/dL (0.55-1.02); EST Glomerular Filtration Rate 89 mL/min (>60); Est Glom Filt Rate - Afr Amer 108 mL/min (>60); Estimated Creatinine Clearance 73.51 ml/min; Glucose 270 mg/dL (74-106); Potassium 3.7 mmol/L (3.5-5.1); Sodium Level 140 mmol/L (136-145)
[2019-05-30 18:03] LABS: BNP,B-Type NATRIURETIC PEPTIDE 682.8 pg/mL (0-100)
[2019-05-30] MEDS: Aspirin 81 MG TAB.CHEW 324 MG PO (18:07)
--- NOTE | 2019-05-30 18:19 | ED.DCSUM_ITS ---
History of Present Illness Chief Complaint: Shortness of Breath Informant: Patient Narrative: Patient presenting for evaluation secondary to shortness of breath. Patient reports that she has had a onset of breathing issues over the course of the last month. She has been seen a couple of times for this, was an inpatient at one point. Patient reports that she has not yet followed up with cardiology or a manager call center. Patient states that she has been having worsening shortness of breath to the point where she is wearing her CPAP for her obstructive sleep apnea all day otherwise she is so short of breath that she can even walk short distances. She does endorse that she has some chest tightness associated with this. She denies any fevers nausea or vomiting. Patient denies any prior history of COPD or asthma, she does report that she is not a smoker. She denies any history of cardiovascular disease. Patient reports that the shortness of breath just got worse today to the point where she needed to come in for evaluation. She denies any hemoptysis. She denies any fevers or cough. Review of systems otherwise negative. Past Medical History - Allergies and Home Meds Allergies/Adverse Reactions: Allergies pregabalin [From Lyrica] Allergy (Verified 05/30/19 16:24) Other SI sulfamethoxazole [From Bactrim] Allergy (Verified 05/30/19 16:24) Rash tramadol HCl [From Ultram] Allergy (Verified 05/30/19 16:24) Swelling trimethoprim [From Bactrim] Allergy (Verified 05/30/19 16:24) Rash vancomycin Allergy (Verified 05/30/19 16:24) Swelling Primary Care Physician: Nevaeh Oconnor MD [Primary Care Provider] - Past Medical History: - - Hypertension, hyperlipidemia, diabetes Surgical History: - - Multiple I&D secondary to abscesses including bilateral axilla hidradenitis interventions with resections, cholecystectomy, total hysterectomy, D&C x2 secondary to miscarriages x2. Smoking Status: Never smoker - Family History Maternal Family History: Family History (Last Reviewed 05/22/19 @ 09:20 by Mague Snider) Other Arthritis CVA (cerebral vascular accident) Depression Diabetes Heart disease Hyperlipemia Hypertension Kidney disease Thyroid disorder Family History: Reports: - - Patient notes a maternal family history of brain cancer. Paternal Family History: Family History (Last Reviewed 02/25/20 @ 09:20 by Mague Snider) Other Arthritis CVA (cerebral vascular accident) Depression Diabetes Heart disease Hyperlipemia Hypertension Kidney disease Thyroid disorder Family History: Reports: - - Patient notes her father was very healthy only medical issue had been reflux. Review of Systems All systems negative except as indicated General: Denies: Chills, Fever, Sweats Eyes: Denies: Visual changes - bilaterally, Diplopia ENT: Denies: Rhinorrhea, Sore throat Cardiovascular: Reports: Chest pain Respiratory: Reports: Dyspnea Gastrointestinal: Denies: Abdominal pain, Nausea, Vomiting, Diarrhea, Melena, Hematochezia Genitourinary: Denies: Dysuria, Hematuria, Frequency Musculoskeletal: Denies: Back pain, Extremity Pain Skin: Denies: Rash, Wounds Neurological: Denies: Headache, Weakness, Numbness Physical Exam Vital Signs/Narrative: Vital Signs Temp Pulse Resp BP Pulse Ox 05/30/19 17:35 126 H 28 H 05/30/19 16:31 90 05/30/19 16:24 97.4 F L 125 H 28 H 158/75 H 94 Inital Vital Signs reviewed: Yes General: Well nourished, Well developed, Obese, - - Mildly distressed secondary to increased work of breathing Head: Normocephalic, Atraumatic Eyes: Perrl, EOMI ENT: Moist mucous membranes, No rhinorrhea Neck: Supple, Nontender, No JVD Cardiovascular: Regular rhythm, No murmurs, Tachycardia, - - 2+ radial pulses bilaterally symmetric Respiratory: - - Poor air movement throughout the lung [place] with tachypnea and shallow respirations. No tripoding or accessory muscle use. Abdomen: Soft, Nontender, Nondistended, Normal bowel sounds Back: Nontender, Normal Inspection Extremities: Nontender, No edema Skin: Normal color, No rash Neurological: Alert, Oriented x3, Cranial nerves II-XII grossly intact, Normal Strength, Normal Sensation Psychological: Normal affect, Normal Mood Diagnostic/Tx/Re-eval Chest X-Ray - ED: 1 View, Read by ED Physician, Read by Radiologist, - - Right basilar atelectasis. Cardiomegaly. Scoliosis. - EKG Initial EKG Interpretation: - - Sinus tachycardia with a rate of 122. Isoelectric ST segments normal T waves. No evidence of acute ischemia. - Medical Decision Making Patient presented secondary to shortness of breath. She was given a DuoNeb and 2 a butyryl treatments and Solu-Medrol in the emergency department. She had modest improvement but still requires supplemental oxygen. Work-up demonstrates the patient to have a elevated BNP which could potentially be consistent with the patient having some congestive heart failure. She was hypoxic on room air, I believe that she requires admission at this point. Patient likely will require consultation by both pulmonology and maybe cardiology. Patient will be admitted under the hospitalist. ED Disposition - Plan for ED Patient: Disposition: Acute Care Hospital [facility] Diagnosis: CHF (congestive heart failure), Hypoxia
--- NOTE | 2019-05-30 19:25 | NURSING ---
Pt very short of breath. See VS. Lungs tight with exp wheezes through out. Pt c/o of not being able to breathe. RT called stat. Placed on Bipap. Lasix given see may.
[2019-05-30] MEDS: Furosemide 40 MG/4 ML Vial IV (19:26)
--- NOTE | 2019-05-30 19:28 | PCM.HP.STD ---
History of Present Illness Date of Admission: 05/30/19 Chief Complaint: SOB The patient is a 43 year old F with a PMH as below who presents with 1 month of shortness of breath. She was recently admitted for bronchitis and hypoxia and she states that she had been giving doses of antibiotics as well as steroids none of which helped. She was also started on nebulizers which she had been doing at home without any improvement. She also states that she has been wearing her CPAP almost 24 hours a day without any improvement. She presents today and is tachycardic as well as tachypneic, she is afebrile without a leukocytosis however she did have a BNP of 682 and does admit to orthopnea. In the ER she was placed on oxygen for acute hypoxia, chest x-ray was obtained which showed mild cardiomegaly but otherwise no major pulmonary issues. She did have a CT of her chest about a month ago which did show some groundglass opacities. Was given a dose of steroids as well as Lasix in the ER. Past Medical History Past Medical History (Chronic Problems): Chronic Problems (Last Reviewed 05/22/19 @ 09:20 by Mague Snider) Essential hypertension (Chronic) ANA (obstructive sleep apnea) (Chronic) Tachycardia (Chronic) Depression with anxiety (Chronic) Neuropathy (Chronic) Nonhealing surgical wound (Chronic) Obesity (Chronic) Open wound of abdominal wall with complication (Chronic) diabetic abscess wound right lower abdominal wall Open wound of neck with complication (Chronic) diabetic abscess wound right posterior neck diabetic abscess wound left posterior neck Abdominal panniculus, symptomatic (Chronic) Hyperlipidemia (Chronic) Morbid obesity due to excess calories (Chronic) History of MRSA infection (Chronic) Type 2 diabetes mellitus (Chronic) Medical History: Medical History (Last Reviewed 05/22/19 @ 09:20 by Mague Snider) Anxiety and depression F41.9, F32.9 Arthritis M19.90 IBS (irritable bowel syndrome) K58.9 Lupus M32.9 Migraines G43.909 Neuropathy G62.9 Allergies pregabalin [From Lyrica] Allergy (Verified 05/30/19 16:24) Other SI sulfamethoxazole [From Bactrim] Allergy (Verified 05/30/19 16:24) Rash tramadol HCl [From Ultram] Allergy (Verified 05/30/19 16:24) Swelling trimethoprim [From Bactrim] Allergy (Verified 05/30/19 16:24) Rash vancomycin Allergy (Verified 05/30/19 16:24) Swelling Home Medications: Ambulatory Orders Medication Instructions Recorded Aspirin E.C. [Ecotrin] 81 mg PO DAILY@0800 07/28/17 cholecalciferol (vitamin D3) 50 2,000 unit PO DAILY #90 cap 11/03/18 mcg (2,000 unit) capsule amitriptyline 100 mg tablet 100 mg PO QHS #90 tab 12/04/18 gabapentin 800 mg tablet 800 mg PO TID #270 tab 12/04/18 simvastatin 20 mg tablet 20 mg PO QHS #90 tab 02/20/19 melatonin 10 mg tablet 10 mg PO QHS #30 tab 03/22/19 insulin detemir U-100 100 unit/mL 38 unit SUBCUT QHS #15 ml 04/24/19 (3 mL) subcutaneous pen Metoprolol Succinate 50 mg PO DAILY 04/25/19 duloxetine 60 mg capsule,delayed 60 mg PO BID #180 cap 05/15/19 release albuterol sulfate 0.63 mg/3 mL 0.63 mg INHALATION Q4H PRN #90 ml 05/22/19 solution for nebulization albuterol sulfate 90 mcg/actuation 1 - 2 puff INHALATION Q6H PRN #8.5 05/22/19 aerosol inhaler g Dulaglutide [Trulicity] 1.5 mg SUBCUT SA 05/30/19 Metformin HCl [Glucophage] 500 mg PO BID 05/30/19 Multivit-Min/Iron/Folic/Lutein 1 tab PO DAILY 05/30/19 [Centrum Silver Women Tablet] Surgical History: Surgical History (Last Reviewed 05/22/19 @ 09:20 by Mague Snider) History of cholecystectomy Z90.49 History of hysterectomy Z90.710 History of neck surgery Z98.890 navel removal Surgical History: - - Multiple I&D secondary to abscesses including bilateral axilla hidradenitis interventions with resections, cholecystectomy, total hysterectomy, D&C x2 secondary to miscarriages x2. 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 Paternal Family History: Family History (Last Reviewed 05/22/19 @ 09:20 by Mague Snider) Other Arthritis CVA (cerebral vascular accident) Depression Diabetes Heart disease Hyperlipemia Hypertension Kidney disease Thyroid disorder History Items: - - Patient notes her father was very healthy only medical issue had been reflux. Review of Systems Constitutional: Denies: Chills, Fever, Weight Change HEENT: Denies: Head Aches, Sinus Congestion, Sinus Drainage Cardiovascular: Reports: Chest Tightness, Edema, Orthopnea. Denies: Chest Pain, Palpitations Respiratory: Reports: Cough, Shortness of Breath. Denies: Shortness of breath at rest, Sputum production Gastrointestinal: Denies: Abdominal Pain, Nausea, Vomiting Genitourinary: Denies: Dysuria Musculoskeletal: Denies: Joint Pain, Joint Tenderness Skin: Denies: Rash, Wounds Neurological: Denies: Numbness, Tingling, Focal weakness Psychiatric: Denies: Anxiety, Depression Hematologic/ Lymphatic: Denies: Easy Bruising, Easy Bleeding VTE Information - Inpt Only VTE Present on Admission: No Patient Problems: Active and Suspected Problems (Last Reviewed 05/22/19 @ 09:20 by Mague Snider) CHF (congestive heart failure) (Acute) Hypoxia (Acute) - Physical Exam Vitals/I&O's: Vital Signs Temp Pulse Resp BP Pulse Ox 97.4 F L 125 H 30 H 158/75 H 94 05/30/19 16:24 05/30/19 18:51 05/30/19 18:51 05/30/19 16:24 05/30/19 18:52 Oxygen Flow Rate (L/min) 4 Oxygen Delivery Method Nasal Cannula Weight: 216 lb Body Mass Index (BMI) 40.8 Finger Stick Blood Glucose 197 General: Alert, Oriented x3, Cooperative, - - Looks anxious and struggling to breathe HEENT: Atraumatic, PERRLA, EOMI, Normocephalic Oral: Dry Mucosa Neck: Supple, No JVD Lungs: Diminished, Tachypneic, Wheezes Cardiovascular: Regular Rhythm, Normal S1, Normal S2, No murmurs, Tachycardic Abdomen: Soft, Non Tender, Non-Distended, Obese Extremities: Capillary Refill Less than 3 Seconds, Edema - Trace edema Skin: No rashes, No breakdown Neurological: Neuro grossly intact, Sensory exam intact to light touch and pain Psych/Mental Status: Normal Affect, Appropriate Laboratory Results 05/30/19 14:00: WBC 8.8, RBC 4.88, Hgb 13.1, Hct 43.4, MCV 88.9, MCH 26.8 L, MCHC 30.2 L, RDW Std Deviation 45.4 H, RDW Coeff of Zeny 14.4, Plt Count 252, MPV 11.3, Immature Gran % (Auto) 0.500, Neut % (Auto) 65.7, Lymph % (Auto) 24.1, [place] % (Auto) 8.1, Eos % (Auto) 1.3, Baso % (Auto) 0.3, Absolute Neuts (auto) 5.8, Absolute Lymphs (auto) 2.12, Nucleated RBC % 0 05/30/19 14:00: Sodium 140, Potassium 3.7, Chloride 104, Carbon Dioxide 29.0, Anion Gap 7, BUN 9, Creatinine 0.76, Estim Creat Clear Calc 73.51, Est GFR (MDRD) Af Amer 108, Est GFR (MDRD) Non-Af 89, BUN/Creatinine Ratio 11.9, Glucose 270 H, Calcium 8.8, Troponin I < 0.015 05/30/19 14:00: B-Natriuretic Peptide 682.8 H Current Medications Amitriptyline HCl (Elavil) 100 mg PO QHS [facility] Aspirin (Ecotrin) 81 mg PO DAILY@0800 [facility] Duloxetine HCl (Cymbalta) 60 mg PO BID [facility] Gabapentin (Neurontin) 800 mg PO TID [facility] Metoprolol Succinate (Toprol Xl (Beta Zelalem)) 50 mg PO DAILY [facility] Non-Formulary Medication (Simvastatin) 20 mg PO QHS [facility] Sodium Chloride () 10 - 40 ml IV UD PRN PRN Reason: SALINE FLUSH Assessment/Plan All Active Problems (Last Reviewed 05/22/19 @ 09:20 by Mague Snider) CHF (congestive heart failure) (Acute) Bronchitis with bronchospasm (Acute) Hypoxia (Acute) 1. Acute hypoxic respiratory distress with cough and chest tightness/HTN/HLD -Initial troponin was negative and EKG was nonischemic, will just continue with her home simvastatin and aspirin -We will place her on BiPAP and obtain an ABG -Continue with duo nebs and Solu-Medrol -We will also place her on Lasix twice daily and order an echo given her orthopnea and her BNP of 682 with her normal renal function -Continue with her home blood pressure medication 2. ANA -We will place her on BiPAP for right now and as her respiratory status improves can transition her to her nightly CPAP 3. DM 2 -We will place her on Lantus 38 units every night put on a calorie controlled diet -We will hold her home medications, continue with Accu-Cheks AC at bedtime and sliding scale insulin 4. Anxiety/depression -Stable -Continue with amitriptyline, and Cymbalta DVT: Lovenox Code Visit Inpatient E&M: 28200 Init Hosp L3
--- NOTE | 2019-05-30 21:29 | ECHOCS_ITS ---
Reason For Study: DYSPNEA/SOB Procedure This was a 2D Doppler, Color Flow transthoracic echocardiogram. The study was technically difficult. Due to body habitus. Contrast injection was performed. Exam performed portable in patient room. Left Ventricle Mildly dilated left ventricle. The estimated ejection fraction is 30-35 %. Stage 2 diastolic dysfunction. There is moderate to severe global hypokinesis of the left ventricle. Right Ventricle Normal RV size. Normal systolic function. Atria The left atrium is mildly enlarged. Normal right atrium. No doppler evidence for ASD. Mitral Valve There is no mitral valve stenosis. Mild-Moderate (1-2+) mitral valve insufficiency. Tricuspid Valve There is no tricuspid stenosis. Trivial tricuspid valve insufficiency. Pulmonary artery systolic pressure is 35 mmHg. Aortic Valve Trisinus/trileaflet aortic valve. There is no aortic stenosis. No aortic valve insufficiency. Pulmonic Valve There is no pulmonic valvular stenosis. No pulmonic valve insufficiency. Great Vessels Normal aortic root. Pericardium/Pleural No pericardial effusion. Medication Diluted definity 3.0ml given slow IV push to enhance endocardial definition. MMode/2D Measurements & Calculations LVIDd: 6.0 cm IVSd: 0.90 cm Ao root diam: 2.9 cm LVIDs: 4.5 cm LVPWd: 1.0 cm RVDd: 3.9 cm FS: 24.5 % LAV(MOD-bp): 65.8 ml LA A4 area: 20.9 cm2 LA dimension(2D): 4.5 cm LAV(MOD-bp) Indexed: 33.5 ml/m2 LAV(MOD-sp2): 67.5 ml LAV(MOD-sp4): 64.9 ml RA A4 area: 16.4 cm2 Time Measurements MV dec time: 0.13 sec Doppler Measurements & Calculations MV E max elvis: 129.8 cm/sec Ao V2 max: 135.8 cm/sec LV V1 max: 105.9 cm/sec MV A max elvis: 35.4 cm/sec Ao max P.4 mmHg LV V1 max P.5 mmHg MV E/A: 3.7 MR max elvis: 499.1 cm/sec PA V2 max: 76.4 cm/sec TR max elvis: 269.0 cm/sec MR max P.7 mmHg TR max P.0 mmHg Interpretation Summary The study was technically difficult. Contrast injection was performed. Mildly dilated left ventricle. The estimated ejection fraction is 30-35 %. There is moderate to severe global hypokinesis of the left ventricle. The left atrium is mildly enlarged. Mild-Moderate (1-2+) mitral valve insufficiency. Stage 2 diastolic dysfunction. Pulmonary artery systolic pressure is 35 mmHg. The study was technically difficult. Contrast injection was performed. Ordering Physician: Kem Miranda Referring Physician: Nevaeh Oconnor Performed By: Wen Walton, RDCS, RVT
[2019-05-30 22:21] LABS: Blood Gas Specimen Type VEN; EPAP 6; FI02 30; IPAP 16; RR 26; SITE R Radial; Time Given 2203; VBG BASE EXCESS 3 mmol/L (-1.0-3.5); VBG Bicarbonate 28 mmol/L (22-26); VBG Oxygen Content 29 mmol/L (23-33); VBG PO2 31 mmHg (25-40); VBG SO2 59 % (50-70); VBG pCO2 43.9 mmHg (41-51); VBG pH 7.41 (7.32-7.42)
--- NOTE | 2019-05-30 22:30 | CPS ---
increased Bilevel settings to 18/10 for pt comfort.
[2019-05-30] MEDS: Atorvastatin Calcium 10 MG Tablet PO (22:38)
[2019-05-30] MEDS: DULoxetine Hcl 60 MG Capsule PO (22:38)
[2019-05-30] MEDS: Amitriptyline 100 MG Tablet PO (22:38)
[2019-05-30] MEDS: Gabapentin 800 MG Tablet PO (22:38)
[2019-05-30] MEDS: Insulin Lispro 100 UNIT/ML INSULN.PEN SC (22:47)
[2019-05-30 22:56] LABS: Bedside Glucose 329 mg/dL (70-110)
[2019-05-31] VITALS (25 sets, daily range): BP systolic 103–135; BP diastolic 53–89; PULSE 97–111; RESP 12–40; TEMP 36.3–36.9; O2SAT 93–96
[2019-05-31 05:09] LABS: Absolute Lymphocyte Count 1.02 X10^3/uL (0.83-4.51); Absolute Neutrophil Count 5.5 X10^3/uL (2.0-7.7); Basophil# 0.01 X10^3/uL; Basophil% 0.1 % (0-1); Eosinophil# 0.13 X10^3/uL; Eosinophils% 1.9 % (0-5); Hematocrit 40.4 % (37-47); Hemoglobin 12.3 g/dL (12.0-15.0); Lymphocyte # 1.02 X10^3/ul (4.0); Mean Corp Hgb Conc 30.4 g/dL (32-36); Mean Corpuscular Hgb 26.6 pg (27.0-32.0); Mean Corpuscular Volume 87.3 fL (81-99); Mean Platelet Vol. 11.2 fl (6.2-12.0); Monocyte% 1.5 % (0-10); NRBC Flagged by Analyzer 0 % (0-5); Neutrophil % 81.2 % (47-70); POSITIVE MORPHOLOGY YES; Platelet Count 259 K/mm3 (150-450); RBC Distribution Width CV 14.2 % (11.6-14.6); RBC Distribution Width SD 44.2 fl (35.1-43.9); Red Blood Count 4.63 M/mm3 (4.2-5.4); White Blood Count 6.8 K/mm3 (4.4-11.0)
[2019-05-31 05:11] LABS: Differential Indicated SCAN CRITERIA MET
[2019-05-31 05:24] LABS: Anion Gap 8 (5-15); BUN 10 mg/dL (7-18); BUN/Creat Ratio 13.1 RATIO (10-20); Chloride 103 mmol/L (98-107); Creatinine, Serum 0.76 mg/dL (0.55-1.02); EST Glomerular Filtration Rate 88 mL/min (>60); Est Glom Filt Rate - Afr Amer 107 mL/min (>60); Estimated Creatinine Clearance 73.51 ml/min; Glucose 294 mg/dL (74-106); Potassium 3.6 mmol/L (3.5-5.1); Sodium Level 140 mmol/L (136-145)
[2019-05-31 05:31] LABS: Anisocytosis RARE; Hypochromasia 1+; Polychromasia RARE
[2019-05-31] MEDS: Nystatin Powder 15gm Bottle 1 APPLIC TOPICAL ×3 (06:13→22:23)
[2019-05-31] MEDS: Gabapentin 800 MG Tablet PO ×3 (06:13→22:20)
[2019-05-31] MEDS: Ipratropium/Albuterol Sulfate 3 ML AMPUL.NEB INHALATION ×4 (06:57→18:45)
[2019-05-31 07:10] LABS: Bedside Glucose 261 mg/dL (70-110)
[2019-05-31] MEDS: Insulin Lispro 100 UNIT/ML INSULN.PEN SC ×4 (08:23→22:21)
[2019-05-31] MEDS: 0.9% Saline Lock 10 ML Syringe IV ×3 (08:24→18:02)
[2019-05-31] MEDS: Aspirin E.C. 81 MG Tablet PO (08:24)
[2019-05-31] MEDS: Enoxaparin 40 MG/0.4 ML Syringe SC (08:24)
[2019-05-31] MEDS: Furosemide 40 MG/4 ML Vial IV ×2 (08:24→18:02)
[2019-05-31] MEDS: DULoxetine Hcl 60 MG Capsule PO ×2 (08:24→22:19)
[2019-05-31] MEDS: Metoprolol(XL)Succ 50 MG Tablet PO (08:25)
--- NOTE | 2019-05-31 09:42 | CASEMGMT ---
Social Work Completed Advanced Directives. Pt expressed , Chacho Degroot as health care POA. Copies places in chart. Genet Mckeon, social work international representative Jia HANNA CLAY MODELER
[2019-05-31 11:45] LABS: Bedside Glucose 363 mg/dL (70-110)
--- NOTE | 2019-05-31 12:30 | CASEMGMT ---
RN FELICIA INCISING MACHINE OPERATOR CM to room to meet with patient for initial transition planning/care coordination assessment. TASNEEM DUARTE introduced self and role at [facility]. Pt voices understanding and consents to assessment at this time. Pt sitting up in bed in no distress at this time. Pt is A/O at this time and answers all questions appropriately. Care providers, pharmacy, and demographics verified/updated at this time. PCP: Dr Oconnor Specialists: States did not follow up with cardiology or pulmonology d/t my insurance company wants me to go to to doctors with [facility] Preferred Pharmacy: [facility] Retail Insurance: [employer] [facility] Prescription Benefit: Yes Living Will/HPOA: States SW was just in to complete AD with her. LNOK: , Chacho Degroot Living Arrangements: Lives with her in mobile home and 18 yr-old-son lives with them. Pt states her is working on building a ramp entrance into the home this weekend. She states she is independent with ADL's but 18-yr-old son assists with home mgmt tasks such as meals, laundry, and cleaning, d/t her neuropathy. Transportation: Pt states drives self and states no transportation concerns at this time. also drives. DME: States has the following DME: cane, walker, CPAP. Pt states she also gets diabetic supplies through [employer]. Pt states she had been using her son's nebulizer, but it wouldn't work yesterday when she tried to use it. Pt states she does not have Home O2. Pt states she wants a shower chair, rollator, and hospital bed, if possible. States she could use rails/grab bars in the bathroom/shower and she is going to ask her if he can install these. Pt would like a new nebulizer. Pt given list of local DME companies. She prefers [facility]. HHC/SNF: No history of SNF. Has used [facility]HC in the past. Pt states may be interested in OP therapy. Pt wishes to return home and states has no concerns with going home at time of discharge. CM to follow for home oxygen needs and any further discharge planning/needs. Pt voices no further concerns/needs at this time. Advised pt to ask for CM if any further questions/concerns/needs arise. Voices understanding. PLAN: Home w/spousal/family support. May need Ambulatory Oxygen testing completed prior to discharge. CM to follow for home oxygen needs. Pt requesting several DME items--ELEMENT[employer] SCHOOL [employer]IC [employer]ACHER Iván DUARTE, made aware. Pt states may be interested in OP therapy. Will need script if she does decide she wants this. Sonu BSN RN CM
[2019-05-31 13:53] LABS: Hemoglobin A1c 9.5 % (4.2-6.3)
--- NOTE | 2019-05-31 14:45 | PN_ITS ---
<Aubrey Parada - Last Filed: 05/31/19 14:45> Patient Problems: Active and Suspected Problems (Last Reviewed 05/22/19 @ 09:20 by Mague Snider) CHF (congestive heart failure) (Acute) Hypoxia (Acute) Reason for Visit: SOB/CP Subjective: CP is now resolved. SOB improving. Still requring O2, normally not on. Complains of ongoing severe orthopnea, PND. LE edema improved. no cough/fever/chills. No N/V. No hx CAD, no hx CHF. C/o neuropathy in fingers / toes. Vitals/I&O's: Vital Signs Temp Pulse Resp BP Pulse Ox 98.1 F 109 H 28 H 108/89 H 96 05/31/19 13:26 05/31/19 14:15 05/31/19 14:15 05/31/19 13:26 05/31/19 13:26 Oxygen Flow Rate (L/min) 3.5 Oxygen Delivery Method Nasal Cannula Weight: 219 lb 12.814 oz Body Mass Index (BMI) 43.5 Finger Stick Blood Glucose 197 Intake and Output for Last 24 Hours 05/29/19 05/30/19 05/31/19 23:59 23:59 23:59 Intake Total 440 / 440 Output Total 2800 / 2800 Balance -2360 / -2360 General: Alert, Oriented x3, Cooperative HEENT: Atraumatic, PERRLA, EOMI, Normocephalic Neck: Supple, No JVD, Negative Carotid Bruits Lungs: Diminished Cardiovascular: Regular rate, No murmurs Abdomen: Bowel Sounds Present, Soft, Non Tender Extremities: Capillary Refill Less than 3 Seconds, Edema - trace Skin: No rashes, No breakdown, - - malar rash Musculoskeletal: No Tenderness to Palpation of Joints or Extremities Neurological: Cranial nerves II-XII grossly intact Psych/Mental Status: Normal Affect, Appropriate, Alert and oriented to time, place, person, mood and affect Laboratory Results 05/30/19 14:00: WBC 8.8, RBC 4.88, Hgb 13.1, Hct 43.4, MCV 88.9, MCH 26.8 L, MCHC 30.2 L, RDW Std Deviation 45.4 H, RDW Coeff of Zeny 14.4, Plt Count 252, MPV 11.3, Immature Gran % (Auto) 0.500, Neut % (Auto) 65.7, Lymph % (Auto) 24.1, [place] % (Auto) 8.1, Eos % (Auto) 1.3, Baso % (Auto) 0.3, Absolute Neuts (auto) 5.8, Absolute Lymphs (auto) 2.12, Nucleated RBC % 0 05/30/19 14:00: Sodium 140, Potassium 3.7, Chloride 104, Carbon Dioxide 29.0, Anion Gap 7, BUN 9, Creatinine 0.76, Estim Creat Clear Calc 73.51, Est GFR (MDRD) Af Amer 108, Est GFR (MDRD) Non-Af 89, BUN/Creatinine Ratio 11.9, Glucose 270 H, Calcium 8.8, Troponin I < 0.015 05/30/19 14:00: B-Natriuretic Peptide 682.8 H 05/30/19 22:15: Specimen Type JOSE, Sample Site R Radial, O2 % 30, VBG pH 7.41, VBG pO2 31, VBG O2 Sat (Calc) 59, VBG O2 Content 29, VBG Base Excess 3, POC Mix VBG pCO2 Pt Tmp 43.9, Respiration Rate 26, O2 Delivery Device Bi / C PAP, EPAP 6, IPAP 16, Blood Gas Notified Whom DELILAH ORLANDO, Blood Gas Notified Time 220205/30/19 22:32: POC Glucose 329 H 05/31/19 04:55: WBC 6.8, RBC 4.63, Hgb 12.3, Hct 40.4, MCV 87.3, MCH 26.6 L, MCHC 30.4 L, RDW Std Deviation 44.2 H, RDW Coeff of Zeny 14.2, Plt Count 259, MPV 11.2, Immature Gran % (Auto) 0.300, Neut % (Auto) 81.2 H, Lymph % (Auto) 15.0 L, [place] % (Auto) 1.5, Eos % (Auto) 1.9, Baso % (Auto) 0.1, Absolute Neuts (auto) 5.5, Absolute Lymphs (auto) 1.02, Nucleated RBC % 0, Polychromasia RARE, Hypochromasia 1+, Anisocytosis RARE 05/31/19 04:55: Sodium 140, Potassium 3.6, Chloride 103, Carbon Dioxide 29.0, Anion Gap 8, BUN 10, Creatinine 0.76, Estim Creat Clear Calc 73.51, Est GFR (MDRD) Af Amer 107, Est GFR (MDRD) Non-Af 88, BUN/Creatinine Ratio 13.1, Glucose 294 H, Calcium 9.0 05/31/19 07:02: POC Glucose 261 H 05/31/19 11:32: POC Glucose 363 H 05/31/19 13:12: Troponin I < 0.015 05/31/19 13:12: Hemoglobin A1c 9.5 H Current Medications Albuterol/Ipratropium (Duoneb) 3 ml INHALATION Q4HWA.RT [facility] Last Admin: 05/31/19 14:18 Dose: 3 ml Documented by: Amitriptyline HCl (Elavil) 100 mg PO QHS [facility] Last Admin: 05/30/19 22:38 Dose: 100 mg Documented by: Aspirin (Ecotrin) 81 mg PO DAILY@0800 [facility] Last Admin: 05/31/19 08:24 Dose: 81 mg Documented by: Atorvastatin Calcium (Lipitor) 10 mg PO QHS [facility] Last Admin: 05/30/19 22:38 Dose: 10 mg Documented by: Duloxetine HCl (Cymbalta) 60 mg PO BID [facility] Last Admin: 05/31/19 08:24 Dose: 60 mg Documented by: Enoxaparin Sodium (Lovenox) 40 mg SC DAILY [facility] Last Admin: 05/31/19 08:24 Dose: 40 mg Documented by: Furosemide (Lasix) 40 mg IV BID@1000,1800 [facility] Last Admin: 05/31/19 08:24 Dose: 40 mg Documented by: Gabapentin (Neurontin) 800 mg PO TID [facility] Last Admin: 05/31/19 13:25 Dose: 800 mg Documented by: Glucagon () 1 mg IM .X1 PRN PRN Reason: Hypoglycemia Dextrose (Dextrose 10%-Water) 250 mls @ 999 mls/hr IV .Q16M PRN; Protocol PRN Reason: HYPOGLYCEMIA Insulin Glargine (Lantus (Bk)) 38 units SC QHS [facility] Last Admin: 05/30/19 22:36 Dose: 38 unit Documented by: Insulin Human Lispro (Humalog Kwikpen (Bk)) 0 unit SC ACHS [facility]; Protocol Last Admin: 05/31/19 11:34 Dose: 8 units Documented by: Methylprednisolone (Solu-Medrol) 40 mg IV Q8 [facility] Last Admin: 05/31/19 13:25 Dose: 40 mg Documented by: Metoprolol Succinate (Toprol Xl (Beta Zelalem)) 50 mg PO DAILY [facility] Last Admin: 05/31/19 08:25 Dose: 50 mg Documented by: Nystatin (Mycostatin Powder) 1 applic TOPICAL TID [facility]; Protocol Last Admin: 05/31/19 13:25 Dose: 1 applicatio Documented by: Ondansetron HCl (Zofran) 4 mg IV Q8H PRN PRN PRN Reason: NAUSEA/VOMITING Sodium Chloride () 10 - 40 ml IV UD PRN PRN Reason: SALINE FLUSH Last Admin: 05/31/19 13:25 Dose: 10 ml Documented by: STROKE Vital Signs/Narrative: Vital Signs Temp Pulse Resp BP Pulse Ox 05/31/19 14:15 109 H 28 H 05/31/19 13:26 98.1 F 109 H 20 H 108/89 H 96 Medical Necessity - Tobacco Use Smoking Status: Never smoker Tobacco Use: Secondhand Assessment/Plan All Active Problems (Last Reviewed 05/22/19 @ 09:20 by Mague Snider) CHF (congestive heart failure) (Acute) Bronchitis with bronchospasm (Acute) Hypoxia (Acute) 1. Acute hypoxic respiratory failure secondary to acute CHF - no prior dx. await echo. Continue lasix. No baseline oxygen supplementation. Continue to wean if possible. Continue sodium and fluid restriction. Education provided. BNP 682.8. 2. Chest pain-EKG with junctional rhythm, initial troponin negative, repeat negative. Consult cardiology. 3. Uncontrolled type 2 diabetes with morbid obesity-A1c 9.5. Will attempt to optimize insulin while here. Continue SSI. Nutrition consult. 4. Severe secondhand smoke exposure-since childhood, ongoing with smoking and home-recommended PFTs as an outpatient. Continue aerosols, steroid taper. Incentive spirometer. 5. ANA-continue CPAP nightly. Suspect underlying OHS, patient may need repeat sleep study. 6. Peripheral neuropathy secondary to type 2 diabetes-continue gabapentin, allergic to Lyrica. 7. Lupus - not on chronic steroids, plaquenil, or MTX. DVT ppx: lovenox DC planning: PTOT. pt c/o severe inability to exercise due to neuropathy This patient was seen by Aubrey Parada PA-C under the supervision of Dr. Denise <August Denise - Last Filed: 05/31/19 15:55> Vitals/I&O's: Vital Signs Temp Pulse Resp BP Pulse Ox 36.7 C 109 H 28 H 108/89 H 96 05/31/19 13:26 05/31/19 15:05 05/31/19 14:15 05/31/19 13:26 05/31/19 13:26 Oxygen Flow Rate (L/min) 3.5 Oxygen Delivery Method Nasal Cannula Weight: 99.7 kg Body Mass Index (BMI) 43.5 Finger Stick Blood Glucose 197 Intake and Output for Last 24 Hours 05/29/19 05/30/19 05/31/19 23:59 23:59 23:59 Intake Total 440 / 440 Output Total 2800 / 2800 Balance -2360 / -2360 General: Alert, Cooperative HEENT: Atraumatic, Normocephalic Oral: Moist Mucosa, No Gingival or Mucosal Lesions/ Ulcerations Neck: No Nodes, Trachea Midline Lungs: Clear to auscultation, Normal air movement, No rhonchi, Diminished, Wheezes Cardiovascular: Regular rate, Regular Rhythm, Normal S1, Normal S2, No murmurs Abdomen: Bowel Sounds Present, Soft, Non Tender Extremities: Capillary Refill Less than 3 Seconds, Edema Skin: No rashes, No breakdown, - Psych/Mental Status: Normal Affect, Appropriate Laboratory Results 05/30/19 14:00: WBC 8.8, RBC 4.88, Hgb 13.1, Hct 43.4, MCV 88.9, MCH 26.8 L, MCHC 30.2 L, RDW Std Deviation 45.4 H, RDW Coeff of Zeny 14.4, Plt Count 252, MPV 11.3, Immature Gran % (Auto) 0.500, Neut % (Auto) 65.7, Lymph % (Auto) 24.1, [place] % (Auto) 8.1, Eos % (Auto) 1.3, Baso % (Auto) 0.3, Absolute Neuts (auto) 5.8, Absolute Lymphs (auto) 2.12, Nucleated RBC % 0 05/30/19 14:00: Sodium 140, Potassium 3.7, Chloride 104, Carbon Dioxide 29.0, Anion Gap 7, BUN 9, Creatinine 0.76, Estim Creat Clear Calc 73.51, Est GFR (MDRD) Af Amer 108, Est GFR (MDRD) Non-Af 89, BUN/Creatinine Ratio 11.9, Glucose 270 H, Calcium 8.8, Troponin I < 0.015 05/30/19 14:00: B-Natriuretic Peptide 682.8 H 05/30/19 22:15: Specimen Type JOSE, Sample Site R Radial, O2 % 30, VBG pH 7.41, VBG pO2 31, VBG O2 Sat (Calc) 59, VBG O2 Content 29, VBG Base Excess 3, POC Mix VBG pCO2 Pt Tmp 43.9, Respiration Rate 26, O2 Delivery Device Bi / C PAP, EPAP 6, IPAP 16, Blood Gas Notified Whom DELILAH ORLANDO, Blood Gas Notified Time 220205/30/19 22:32: POC Glucose 329 H 05/31/19 04:55: WBC 6.8, RBC 4.63, Hgb 12.3, Hct 40.4, MCV 87.3, MCH 26.6 L, MCHC 30.4 L, RDW Std Deviation 44.2 H, RDW Coeff of Zeny 14.2, Plt Count 259, MPV 11.2, Immature Gran % (Auto) 0.300, Neut % (Auto) 81.2 H, Lymph % (Auto) 15.0 L, [place] % (Auto) 1.5, Eos % (Auto) 1.9, Baso % (Auto) 0.1, Absolute Neuts (auto) 5.5, Absolute Lymphs (auto) 1.02, Nucleated RBC % 0, Polychromasia RARE, Hypochromasia 1+, Anisocytosis RARE 05/31/19 04:55: Sodium 140, Potassium 3.6, Chloride 103, Carbon Dioxide 29.0, Anion Gap 8, BUN 10, Creatinine 0.76, Estim Creat Clear Calc 73.51, Est GFR (MDRD) Af Amer 107, Est GFR (MDRD) Non-Af 88, BUN/Creatinine Ratio 13.1, Glucose 294 H, Calcium 9.0 05/31/19 07:02: POC Glucose 261 H 05/31/19 11:32: POC Glucose 363 H 05/31/19 13:12: Troponin I < 0.015 05/31/19 13:12: Hemoglobin A1c 9.5 H Current Medications Albuterol/Ipratropium (Duoneb) 3 ml INHALATION Q4HWA.RT [facility] Last Admin: 05/31/19 14:18 Dose: 3 ml Documented by: Amitriptyline HCl (Elavil) 100 mg PO QHS [facility] Last Admin: 05/30/19 22:38 Dose: 100 mg Documented by: Aspirin (Ecotrin) 81 mg PO DAILY@0800 [facility] Last Admin: 05/31/19 08:24 Dose: 81 mg Documented by: Atorvastatin Calcium (Lipitor) 10 mg PO QHS [facility] Last Admin: 05/30/19 22:38 Dose: 10 mg Documented by: Duloxetine HCl (Cymbalta) 60 mg PO BID [facility] Last Admin: 05/31/19 08:24 Dose: 60 mg Documented by: Enoxaparin Sodium (Lovenox) 40 mg SC DAILY [facility] Last Admin: 05/31/19 08:24 Dose: 40 mg Documented by: Furosemide (Lasix) 40 mg IV BID@1000,1800 [facility] Last Admin: 05/31/19 08:24 Dose: 40 mg Documented by: Gabapentin (Neurontin) 800 mg PO TID [facility] Last Admin: 05/31/19 13:25 Dose: 800 mg Documented by: Glucagon () 1 mg IM .X1 PRN PRN Reason: Hypoglycemia Dextrose (Dextrose 10%-Water) 250 mls @ 999 mls/hr IV .Q16M PRN; Protocol PRN Reason: HYPOGLYCEMIA Insulin Glargine (Lantus (Bkc)) 40 units SC QHS [facility] Insulin Human Lispro (Humalog Kwikpen (Bk)) 0 unit SC ACHS [facility]; Protocol Last Admin: 05/31/19 11:34 Dose: 8 units Documented by: Methylprednisolone (Solu-Medrol) 40 mg IV Q12 [facility] Metoprolol Succinate (Toprol Xl (Beta Zelalem)) 50 mg PO DAILY [facility] Last Admin: 05/31/19 08:25 Dose: 50 mg Documented by: Nystatin (Mycostatin Powder) 1 applic TOPICAL TID [facility]; Protocol Last Admin: 05/31/19 13:25 Dose: 1 applicatio Documented by: Ondansetron HCl (Zofran) 4 mg IV Q8H PRN PRN PRN Reason: NAUSEA/VOMITING Sodium Chloride () 10 - 40 ml IV UD PRN PRN Reason: SALINE FLUSH Last Admin: 05/31/19 13:25 Dose: 10 ml Documented by: STROKE Vital Signs/Narrative: Vital Signs Temp Pulse Resp BP Pulse Ox 05/31/19 15:05 109 H 05/31/19 14:15 109 H 28 H 05/31/19 13:26 36.7 C 109 H 20 H 108/89 H 96 Assessment/Plan Patient seen and examined independently. Data reviewed. I agree with the above note by the physician assistant bookkeeper. 1. acute hypoxic resp failure: etiology unclear: CHF v AE asthma. On BDs, methylpred and IV furosemide. Check echo. Inpatient E&M: 76022 Subs Hosp L2
--- NOTE | 2019-05-31 14:46 | CHAPLAIN ---
Type of Pastoral Visit _x__ Initial Visit ___ Follow-up Visit ___ On-call Visit ___ General Patient Visit ___ Spiritual Assessment ___ Family Conference ___ Bereavement ___ Rapid Response ___ Code Blue ___ Other (describe below) Pastoral Care Referral From _x__ Patient ___ Family ___ Nurse ___ Physician ___ Bulker ___ Thermal Engineer ___ Other (describe below) Sacrament/Intervention _x__ Active listening ___ Anointing ___ Samaritan ___ Bereavement ___ Communion ___ Christine exploration ___ ___ Life review _x__ Prayer ___ Reconciliation ___ Sacrament of Sick _x__ Supportive presence ___ Wedding ___ Other (describe below) Pastoral Comments
--- NOTE | 2019-05-31 16:23 | CON.PCM_ITS ---
Reason for Consult Date of Consultation: 05/31/19 Reason for Consultation: CHF History of Present Illness: The patient is a 43 year old F with a PMH as below who presents with 1 month of shortness of breath. She was recently admitted for bronchitis and hypoxia and she states that she had been giving doses of antibiotics as well as steroids none of which helped. She was also started on nebulizers which she had been doing at home without any improvement. She also states that she has been wearing her CPAP almost 24 hours a day without any improvement. Upon presentation patient was tachypneic and tachycardic. She did have a BNP of 682 and did admit to orthopnea. In the ER she was placed on oxygen for acute hypoxia, chest x-ray was obtained which showed mild cardiomegaly but otherwise no major pulmonary issues. She did have a CT of her chest about a month ago which did show some groundglass opacities. Was given a dose of steroids as well as Lasix in the ER. Patient was started on IV Lasix and this is resulted in improvement of symptoms. She still has some shortness of breath and orthopnea but is able to manage lying down flat when she is on oxygen by nasal cannula. She did have some chest pressure as well when she was having shortness of breath. 2D echo revealed an EF of 30 to 35%. Review of systems: All systems reviewed. All else is negative except that in the HPI. Past Medical History Allergies/Adverse Reactions: Allergies pregabalin [From Lyrica] Allergy (Verified 05/30/19 16:24) Other SI sulfamethoxazole [From Bactrim] Allergy (Verified 05/30/19 16:24) Rash tramadol HCl [From Ultram] Allergy (Verified 05/30/19 16:24) Swelling trimethoprim [From Bactrim] Allergy (Verified 05/30/19 16:24) Rash vancomycin Allergy (Verified 05/30/19 16:24) Swelling Home Medications: Ambulatory Orders Medication Instructions Recorded Aspirin E.C. [Ecotrin] 81 mg PO DAILY@0800 07/28/17 cholecalciferol (vitamin D3) 50 2,000 unit PO DAILY #90 cap 11/03/18 mcg (2,000 unit) capsule amitriptyline 100 mg tablet 100 mg PO QHS #90 tab 12/04/18 gabapentin 800 mg tablet 800 mg PO TID #270 tab 12/04/18 simvastatin 20 mg tablet 20 mg PO QHS #90 tab 02/20/19 melatonin 10 mg tablet 10 mg PO QHS #30 tab 03/22/19 insulin detemir U-100 100 unit/mL 38 unit SUBCUT QHS #15 ml 04/24/19 (3 mL) subcutaneous pen Metoprolol Succinate 50 mg PO DAILY 04/25/19 duloxetine 60 mg capsule,delayed 60 mg PO BID #180 cap 05/15/19 release albuterol sulfate 0.63 mg/3 mL 0.63 mg INHALATION Q4H PRN #90 ml 05/22/19 solution for nebulization albuterol sulfate 90 mcg/actuation 1 - 2 puff INHALATION Q6H PRN #8.5 05/22/19 aerosol inhaler g Dulaglutide [Trulicity] 1.5 mg SUBCUT SA 05/30/19 Metformin HCl [Glucophage] 500 mg PO BID 05/30/19 Multivit-Min/Iron/Folic/Lutein 1 tab PO DAILY 05/30/19 [Centrum Silver Women Tablet] Past Medical History (Chronic Problems): Chronic Problems (Last Reviewed 05/22/19 @ 09:20 by Mague Snider) Essential hypertension (Chronic) ANA (obstructive sleep apnea) (Chronic) Tachycardia (Chronic) Depression with anxiety (Chronic) Neuropathy (Chronic) Nonhealing surgical wound (Chronic) Obesity (Chronic) Open wound of abdominal wall with complication (Chronic) diabetic abscess wound right lower abdominal wall Open wound of neck with complication (Chronic) diabetic abscess wound right posterior neck diabetic abscess wound left posterior neck Abdominal panniculus, symptomatic (Chronic) Hyperlipidemia (Chronic) Morbid obesity due to excess calories (Chronic) History of MRSA infection (Chronic) Type 2 diabetes mellitus (Chronic) Surgical History: - - Multiple I&D secondary to abscesses including bilateral axilla hidradenitis interventions with resections, cholecystectomy, total hysterectomy, D&C x2 secondary to miscarriages x2. 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 Paternal Family History: Family History (Last Reviewed 05/22/19 @ 09:20 by Mague Snider) Other Arthritis CVA (cerebral vascular accident) Depression Diabetes Heart disease Hyperlipemia Hypertension Kidney disease Thyroid disorder History Items: - - Patient notes her father was very healthy only medical issue had been reflux. Smoking Status: Never smoker Tobacco Use: Secondhand Alcohol: None Drugs: None Objective: Vital Signs Temp Pulse Resp BP Pulse Ox 98.1 F 109 H 28 H 108/89 H 96 05/31/19 13:26 05/31/19 15:05 05/31/19 14:15 05/31/19 13:26 05/31/19 13:26 Oxygen Flow Rate (L/min) 3.5 Oxygen Delivery Method Nasal Cannula Weight: 219 lb 12.814 oz Body Mass Index (BMI) 43.5 Finger Stick Blood Glucose 197 Intake and Output for Last 24 Hours 05/29/19 05/30/19 05/31/19 23:59 23:59 23:59 Intake Total 440 / 440 Output Total 2800 / 2800 Balance -2360 / -2360 General: Awake, Alert, Oriented x 3 HEENT: Atraumatic Oral: Moist Mucosa Neck: Supple Lungs: Rales - Andrew Bases Cardiovascular: Regular Rhythm Extremities: Trace RLE Edema, Trace LLE Edema Skin: No Rashes Psych/Mental Status: Appropriate 05/30/19 14:00: WBC 8.8, RBC 4.88, Hgb 13.1, Hct 43.4, MCV 88.9, MCH 26.8 L, MCHC 30.2 L, Plt Count 252, MPV 11.3, Immature Gran % (Auto) 0.500, Neut % (Auto) 65.7, Lymph % (Auto) 24.1, [place] % (Auto) 8.1, Eos % (Auto) 1.3, Baso % (Auto) 0.3, Absolute Neuts (auto) 5.8, Nucleated RBC % 0 05/30/19 14:00: Sodium 140, Potassium 3.7, Chloride 104, Carbon Dioxide 29.0, Anion Gap 7, BUN 9, Creatinine 0.76, Est GFR (MDRD) Af Amer 108, Est GFR (MDRD) Non-Af 89, BUN/Creatinine Ratio 11.9, Glucose 270 H, Calcium 8.8, Troponin I < 0.015 05/30/19 14:00: B-Natriuretic Peptide 682.8 H 05/30/19 22:15: VBG pH 7.41, VBG pO2 31, VBG O2 Sat (Calc) 59, VBG O2 Content 29, VBG Base Excess 3 05/31/19 04:55: WBC 6.8, RBC 4.63, Hgb 12.3, Hct 40.4, MCV 87.3, MCH 26.6 L, MCHC 30.4 L, Plt Count 259, MPV 11.2, Immature Gran % (Auto) 0.300, Neut % (Auto) 81.2 H, Lymph % (Auto) 15.0 L, [place] % (Auto) 1.5, Eos % (Auto) 1.9, Baso % (Auto) 0.1, Absolute Neuts (auto) 5.5, Nucleated RBC % 0 05/31/19 04:55: Sodium 140, Potassium 3.6, Chloride 103, Carbon Dioxide 29.0, Anion Gap 8, BUN 10, Creatinine 0.76, Est GFR (MDRD) Af Amer 107, Est GFR (MDRD) Non-Af 88, BUN/Creatinine Ratio 13.1, Glucose 294 H, Calcium 9.0 05/31/19 13:12: Troponin I < 0.015 05/31/19 13:12: Hemoglobin A1c 9.5 H Rhythm: EKG: ECHO: Stress Test: Cardiac Cath: PCI: CT Surgery: Holter monitor: EPS: PPM: CXR: Chest CT Scan: Assessment/Plan 1. CHF: Patient has acute decompensated systolic heart failure. Agree with keeping her on IV Lasix for at least another day. Agree with Toprol-XL. At this time her blood pressure is borderline so we are not able to add LINDA inhibitor. She would benefit from coronary angiography to evaluate the etiology of her systolic dysfunction. Risks and benefits of this procedure were discussed with the patient in detail. Patient is willing to proceed. We will proceed with this tentatively tomorrow if she is able to lie down flat and if her creatinine is stable.
[2019-05-31 16:56] LABS: Bedside Glucose 342 mg/dL (70-110)
[2019-05-31] MEDS: Atorvastatin Calcium 10 MG Tablet PO (22:19)
[2019-05-31] MEDS: Amitriptyline 100 MG Tablet PO (22:19)
[2019-05-31 22:45] LABS: Bedside Glucose 328 mg/dL (70-110)
[2019-06-01] VITALS (31 sets, daily range): BP systolic 75–118; BP diastolic 46–83; PULSE 88–111; RESP 12–30; TEMP 36.3–36.8; O2SAT 95–99
[2019-06-01] MEDS: Gabapentin 800 MG Tablet PO ×3 (06:12→23:11)
[2019-06-01] MEDS: Aspirin E.C. 81 MG Tablet PO (06:12)
[2019-06-01] MEDS: Metoprolol(XL)Succ 50 MG Tablet PO (06:12)
[2019-06-01 06:18] LABS: Anion Gap 6 (5-15); BUN 26 mg/dL (7-18); BUN/Creat Ratio 31.7 RATIO (10-20); Calcium,Total 8.6 mg/dL (8.5-10.1); Chloride 100 mmol/L (98-107); Creatinine, Serum 0.82 mg/dL (0.55-1.02); EST Glomerular Filtration Rate 82 mL/min (>60); Est Glom Filt Rate - Afr Amer 99 mL/min (>60); Estimated Creatinine Clearance 68.13 ml/min; Glucose 216 mg/dL (74-106); Potassium 3.7 mmol/L (3.5-5.1); Sodium Level 138 mmol/L (136-145)
[2019-06-01 06:26] LABS: Bedside Glucose 229 mg/dL (70-110)
[2019-06-01] MEDS: Ipratropium/Albuterol Sulfate 3 ML AMPUL.NEB INHALATION ×3 (07:35→18:56)
--- NOTE | 2019-06-01 08:14 | CPS ---
PT DECREASED TO 3 LPM....98%
--- NOTE | 2019-06-01 09:50 | CASEMGMT ---
According to the [employer] website, the following are in-network tertiary facilities: [facility], [facility], [facility], and . Kana BOATENG CM
[2019-06-01] MEDS: DULoxetine Hcl 60 MG Capsule PO ×2 (12:02→23:10)
[2019-06-01] MEDS: Furosemide 40 MG/4 ML Vial IV ×2 (12:03→17:15)
[2019-06-01] MEDS: 0.9% Saline Lock 10 ML Syringe IV ×2 (12:04→17:16)
[2019-06-01] MEDS: Insulin Lispro 100 UNIT/ML INSULN.PEN SC ×3 (12:19→23:12)
--- NOTE | 2019-06-01 12:31 | CL.D_ITS ---
Patient Name: JAIRO CHAIREZ Study Date: 06/01/2019 Performing: Karlie Benitez MD Ht: 61 inches 155 cm : 1975 Wt: 220.8 lbs 100 kg Age: 43 Gender: female BSA: 1.97 PROCEDURE(S) PERFORMED [id number]/LV CLINICAL PROFILE AND INDICATIONS Indications: Cardiomyopathy Heart Failure: NYHA Class: 3, Newly Diagnosed: Yes, Heart Failure Type: Systolic Stress/Imaging Stress/Image Study Performed: No CAD Presentations: Other: cardiomyopathy CONCLUSIONS No significant CAD. Severe LV systolic dysfunction. No significant . Mild to moderate MR RECOMMENDATIONS DESCRIPTION OF PROCEDURE The patient arrived to the procedure lab. The risks and benefits of the procedure as well as a full d escription of our services here and current unavailability of surgical backup were fully explained to the patient and/or their significant other prior to the catheterization. The Timeout was completed, verifying the correct patient and procedure. The patient's procedural site was prepped and draped in the usual fashion. Local anesthetic was given subcutaneously to right radial region with Lidocaine 2% . Using a modified Seldinger technique, arterial access was obtained via the right radial artery, a 6 Fr sheath was inserted. Left Coronary Artery selective angiography was performed in multiple views u sing a 5 Fr. JL3.5 catheter. Left Ventriculography was performed in HAY projection using a 5 Fr JR4.. LV to AO pullback pressures were then recorded. Right Coronary Artery selective angiography was then performed in multiple views using a 5 Fr. JR 4 catheter.The arterial sheath was pulled and a TR Band was applied for hemostasis. 12cc air CORONARY ANGIOGRAPHY DOMINANCE: Right Dominant LEFT HEART ASSESSMENT Left Ventricular Ejection Fraction: by LV Gram 20-25 % Global Hypokinesis - Severe LEFT MAIN: Angiographically normal LEFT ANTERIOR DESCENDING ARTERY: Mild luminal irregularities CIRCUMFLEX ARTERY: Mild luminal irregularities RIGHT CORONARY ARTERY: Mild luminal irregularities VALVE FINDINGS: No Aortic Valve Stenosis Mitral Valve Insufficiency - Grade 2 COMPLICATIONS No Complications PROCEDURE MEDICATIONS Fentanyl 50 mcg IV Versed 1 mg IV Fentanyl 25 mcg IV Oxygen: 2 L/min via nasal cannula Oxygen: 4 L/min via nasal cannula Heparin given IA 06/01/2019 11:01:30 Verapamil 2.5mg, Ntg 100mcgs, 3000 units of Heparin given IA 06/01/2019 11:01:30 SUMMARY OF HEMODYNAMIC DATA Time AIR REST ECG 10:42:36 LV 96/8, 27 11:03:24 LVp 92/10, 26 11:03:38 AOp 102/62 (81) 11:03:43 AO 100/66 (88) SA 11:04:02 Signed By Karlie Benitez MD On 06/01/2019 12:30:32 Karlie Benitez MD
[2019-06-01 12:36] LABS: Bedside Glucose 188 mg/dL (70-110)
--- NOTE | 2019-06-01 13:15 | EKG12_ITS ---
Test Reason : CP, DIAPHORETIC Blood Pressure : / mmHG Vent. Rate : 097 BPM Atrial Rate : 097 BPM P-R Int : 168 ms QRS Dur : 096 ms QT Int : 390 ms P-R-T Axes : 005 028 008 degrees QTc Int : 495 ms Normal sinus rhythm Prolonged QT Abnormal ECG Confirmed by NIRALI ORLANDO, GELACIO ([id number]), editor department LADONNA BOWMAN ([id number]) on 06/06/2019 9:43:31 AM Referred By: Teja Moncada Confirmed By:GELACIO CAMPOVERDE MD
--- NOTE | 2019-06-01 13:21 | PCM.PN.HOSP ---
<Aubrey Parada - Last Filed: 06/01/19 13:21> Patient Problems: Active and Suspected Problems (Last Updated 06/01/19 @ 13:09 by Tran Perez) History of left heart catheterization (Acute 06/01/19) CHF (congestive heart failure) (Acute) Hypoxia (Acute) Reason for Visit: SOB Subjective: Pt seen and examined prior to cath. Pt reported SOB improvement though still requiring o2. Improvement in LE edema. No CP. No palp/heaviness. She has a minimally productive cough. No fever/chills. using bipap qhs. has cpap at home. does not use supplemental o2 normally. Vitals/I&O's: Vital Signs Temp Pulse Resp BP Pulse Ox 97.6 F L 103 H 18 76/52 L 95 06/01/19 11:40 06/01/19 12:25 06/01/19 12:40 06/01/19 12:40 06/01/19 12:40 Oxygen Flow Rate (L/min) 4 Oxygen Delivery Method Nasal Cannula Weight: 220 lb 7.396 oz Body Mass Index (BMI) 43.5 Finger Stick Blood Glucose 197 Intake and Output for Last 24 Hours 05/30/19 05/31/19 06/01/19 23:59 23:59 23:59 Intake Total 660 / 660 420 / 420 Output Total 3500 / 3500 1150 / 1150 Balance -2840 / -2840 -730 / -730 General: Alert, Oriented x3, Cooperative HEENT: Atraumatic, PERRLA, EOMI, Normocephalic Neck: Supple, No JVD, Negative Carotid Bruits Lungs: Clear to auscultation, Normal air movement Cardiovascular: Regular rate, No murmurs Abdomen: Bowel Sounds Present, Soft, Non Tender Extremities: No edema, Capillary Refill Less than 3 Seconds Skin: No rashes, No breakdown Musculoskeletal: No Tenderness to Palpation of Joints or Extremities Neurological: Cranial nerves II-XII grossly intact Psych/Mental Status: Normal Affect, Appropriate, Alert and oriented to time, place, person, mood and affect Laboratory Results 05/31/19 13:12: Troponin I < 0.015 05/31/19 13:12: Hemoglobin A1c 9.5 H 05/31/19 16:45: POC Glucose 342 H 05/31/19 22:14: POC Glucose 328 H 06/01/19 05:36: Sodium 138, Potassium 3.7, Chloride 100, Carbon Dioxide 32.0, Anion Gap 6, BUN 26 H, Creatinine 0.82, Estim Creat Clear Calc 68.13, Est GFR (MDRD) Af Amer 99, Est GFR (MDRD) Non-Af 82, BUN/Creatinine Ratio 31.7 H, Glucose 216 H, Calcium 8.6 06/01/19 06:07: POC Glucose 229 H 06/01/19 12:17: POC Glucose 188 H Current Medications Albuterol/Ipratropium (Duoneb) 3 ml INHALATION Q4HWA.RT [facility] Last Admin: 06/01/19 11:07 Dose: Not Given Documented by: Amitriptyline HCl (Elavil) 100 mg PO QHS [facility] Last Admin: 05/31/19 22:19 Dose: 100 mg Documented by: Aspirin (Ecotrin) 81 mg PO DAILY@0800 [facility] Last Admin: 06/01/19 06:12 Dose: 81 mg Documented by: Atorvastatin Calcium (Lipitor) 10 mg PO QHS [facility] Last Admin: 05/31/19 22:19 Dose: 10 mg Documented by: Duloxetine HCl (Cymbalta) 60 mg PO BID [facility] Last Admin: 06/01/19 12:02 Dose: 60 mg Documented by: Enoxaparin Sodium (Lovenox) 40 mg SC DAILY [facility] Last Admin: 06/01/19 12:18 Dose: Not Given Documented by: Furosemide (Lasix) 40 mg IV BID@1000,1800 [facility] Last Admin: 06/01/19 12:03 Dose: 40 mg Documented by: Gabapentin (Neurontin) 800 mg PO TID [facility] Last Admin: 06/01/19 06:12 Dose: 800 mg Documented by: Glucagon () 1 mg IM .X1 PRN PRN Reason: Hypoglycemia Dextrose (Dextrose 10%-Water) 250 mls @ 999 mls/hr IV .Q16M PRN; Protocol PRN Reason: HYPOGLYCEMIA Sodium Chloride () 1,000 mls @ 0 mls/hr IV .Q0M [facility] Insulin Glargine (Lantus (Bk)) 40 units SC QHS [facility] Last Admin: 05/31/19 22:20 Dose: 40 units Documented by: Insulin Human Lispro (Humalog Kwikpen (Bkc)) 0 unit SC ACHS [facility]; Protocol Last Admin: 06/01/19 12:19 Dose: 3 units Documented by: Metoprolol Succinate (Toprol Xl (Beta Zelalem)) 50 mg PO DAILY [facility] Last Admin: 06/01/19 06:12 Dose: 50 mg Documented by: Nystatin (Mycostatin Powder) 1 applic TOPICAL TID [facility]; Protocol Last Admin: 06/01/19 05:54 Dose: Not Given Documented by: Ondansetron HCl (Zofran) 4 mg IV Q8H PRN PRN PRN Reason: NAUSEA/VOMITING Prednisone () 40 mg PO DAILY@0800 [facility] Sodium Chloride () 10 - 40 ml IV UD PRN PRN Reason: SALINE FLUSH Last Admin: 06/01/19 12:04 Dose: 10 ml Documented by: STROKE Vital Signs/Narrative: Vital Signs Temp Pulse Resp BP Pulse Ox 06/01/19 12:40 18 76/52 L 95 06/01/19 12:25 103 H 18 96/50 L 97 06/01/19 12:10 104 H 18 87/50 L 96 06/01/19 11:56 103 H 18 85/53 L 97 06/01/19 11:52 103 H 06/01/19 11:40 97.6 F L 100 18 82/50 L 96 Medical Necessity - Tobacco Use Smoking Status: Never smoker Tobacco Use: Secondhand Assessment/Plan All Active Problems (Last Updated 06/01/19 @ 13:09 by Tran Perez) History of left heart catheterization (Acute 06/01/19) CHF (congestive heart failure) (Acute) Bronchitis with bronchospasm (Acute) Hypoxia (Acute) 1. Acute hypoxic respiratory failure secondary to acute systolic CHF, nonischemic CM -Continue lasix. No baseline oxygen supplementation. Continue to wean if possible. Continue sodium and fluid restriction. Education provided. BNP 682.8. -Echo EF 30-35% with severe hypokinesis of the LV, 1-2+ MVI, St 2 Diastolic dysfunction, PASP 35. -Taken for cath today per cardiology, no CAD. Severe LV dysfunction. Mild to mod MR. no . 2. Chest pain-EKG with junctional rhythm, initial troponin negative, repeat negative. Consult cardiology. 3. Uncontrolled type 2 diabetes with morbid obesity-A1c 9.5. Will attempt to optimize insulin while here. Continue SSI. Nutrition consult. 4. Severe secondhand smoke exposure-since childhood, ongoing with smoking and home-recommended PFTs as an outpatient. Continue aerosols, steroid taper. Incentive spirometer. 5. ANA-continue CPAP nightly. Suspect underlying OHS, patient may need repeat sleep study. 6. Peripheral neuropathy secondary to type 2 diabetes-continue gabapentin, allergic to Lyrica. 7. Lupus - not on chronic steroids, plaquenil, or MTX. DVT ppx: lovenox DC planning: PTOT. pt c/o severe inability to exercise due to neuropathy This patient was seen by Aubrey Parada PA-C under the supervision of Dr. Denise <August Denise - Last Filed: 06/01/19 15:30> Vitals/I&O's: Vital Signs Temp Pulse Resp BP Pulse Ox 36.3 C L 92 18 86/57 L 97 06/01/19 14:50 06/01/19 14:50 06/01/19 14:50 06/01/19 14:50 06/01/19 14:50 Oxygen Flow Rate (L/min) 4 Oxygen Delivery Method Nasal Cannula Weight: 100 kg Body Mass Index (BMI) 43.5 Finger Stick Blood Glucose 197 Intake and Output for Last 24 Hours 05/30/19 05/31/19 06/01/19 23:59 23:59 23:59 Intake Total 660 / 660 420 / 420 Output Total 3500 / 3500 1150 / 1150 Balance -2840 / -2840 -730 / -730 General: Alert, Cooperative HEENT: Atraumatic, Normocephalic Neck: No Nodes, Trachea Midline Lungs: Clear to auscultation, Normal air movement, No rhonchi, No wheeze Cardiovascular: Regular rate, Regular Rhythm, Normal S1, Normal S2, No murmurs Abdomen: Bowel Sounds Present, Soft, Non Tender Extremities: No edema, No Calf Tenderness Psych/Mental Status: Normal Affect, Appropriate Laboratory Results 05/31/19 16:45: POC Glucose 342 H 05/31/19 22:14: POC Glucose 328 H 06/01/19 05:36: Sodium 138, Potassium 3.7, Chloride 100, Carbon Dioxide 32.0, Anion Gap 6, BUN 26 H, Creatinine 0.82, Estim Creat Clear Calc 68.13, Est GFR (MDRD) Af Amer 99, Est GFR (MDRD) Non-Af 82, BUN/Creatinine Ratio 31.7 H, Glucose 216 H, Calcium 8.6 06/01/19 06:07: POC Glucose 229 H 06/01/19 12:17: POC Glucose 188 H Current Medications Albuterol/Ipratropium (Duoneb) 3 ml INHALATION Q4HWA.RT [facility] Last Admin: 06/01/19 15:12 Dose: 3 ml Documented by: Amitriptyline HCl (Elavil) 100 mg PO QHS [facility] Last Admin: 05/31/19 22:19 Dose: 100 mg Documented by: Aspirin (Ecotrin) 81 mg PO DAILY@0800 [facility] Last Admin: 06/01/19 06:12 Dose: 81 mg Documented by: Atorvastatin Calcium (Lipitor) 10 mg PO QHS [facility] Last Admin: 05/31/19 22:19 Dose: 10 mg Documented by: Duloxetine HCl (Cymbalta) 60 mg PO BID [facility] Last Admin: 06/01/19 12:02 Dose: 60 mg Documented by: Enoxaparin Sodium (Lovenox) 40 mg SC DAILY [facility] Last Admin: 06/01/19 12:18 Dose: Not Given Documented by: Furosemide (Lasix) 40 mg IV BID@1000,1800 [facility] Last Admin: 06/01/19 12:03 Dose: 40 mg Documented by: Gabapentin (Neurontin) 800 mg PO TID [facility] Last Admin: 06/01/19 14:10 Dose: 800 mg Documented by: Glucagon () 1 mg IM .X1 PRN PRN Reason: Hypoglycemia Dextrose (Dextrose 10%-Water) 250 mls @ 999 mls/hr IV .Q16M PRN; Protocol PRN Reason: HYPOGLYCEMIA Sodium Chloride () 1,000 mls @ 0 mls/hr IV .Q0M [facility] Insulin Glargine (Lantus (Bk)) 40 units SC QHS [facility] Last Admin: 05/31/19 22:20 Dose: 40 units Documented by: Insulin Human Lispro (Humalog Kwikpen (Bk)) 0 unit SC ACHS [facility]; Protocol Last Admin: 06/01/19 12:19 Dose: 3 units Documented by: Metoprolol Succinate (Toprol Xl (Beta Zelalem)) 50 mg PO DAILY [facility] Last Admin: 06/01/19 06:12 Dose: 50 mg Documented by: Nystatin (Mycostatin Powder) 1 applic TOPICAL TID [facility]; Protocol Last Admin: 06/01/19 14:10 Dose: 1 applicatio Documented by: Ondansetron HCl (Zofran) 4 mg IV Q8H PRN PRN PRN Reason: NAUSEA/VOMITING Prednisone () 40 mg PO DAILY@0800 [facility] Sodium Chloride () 10 - 40 ml IV UD PRN PRN Reason: SALINE FLUSH Last Admin: 06/01/19 12:04 Dose: 10 ml Documented by: STROKE Vital Signs/Narrative: Vital Signs Temp Pulse Resp BP Pulse Ox 06/01/19 14:50 36.3 C L 92 18 86/57 L 97 06/01/19 14:40 92 18 86/57 L 97 06/01/19 13:40 92 18 89/60 L 98 06/01/19 13:20 36.4 C L 93 18 75/46 L 97 06/01/19 13:10 88 18 118/58 L 96 06/01/19 12:40 18 76/52 L 95 06/01/19 12:25 103 H 18 96/50 L 97 06/01/19 12:10 104 H 18 87/50 L 96 06/01/19 11:56 103 H 18 85/53 L 97 06/01/19 11:52 103 H 06/01/19 11:40 36.4 C L 100 18 82/50 L 96 Assessment/Plan Patient seen and examined independently. Data reviewed. I agree with the above note by the physician title i assistant. 1. Acute HFrEF EF 30-35% LHC showed normal coronaries on IV furosemide no ACEi/ARB given low BP 2. Chest pain [facility] normal coronaries. Inpatient E&M: 49601 Subs Hosp L2
[2019-06-01] MEDS: Nystatin Powder 15gm Bottle 1 APPLIC TOPICAL ×2 (14:10→23:11)
--- NOTE | 2019-06-01 15:07 | CASEMGMT ---
Green sheet on chart for a nebulizer and possible home oxygen, if qualifies. Pt declines the need for further therapy at this time and states 'I think I did pretty well with them yesterday.' Pt does ask about f/u for adjusting cpap and this TASNEEM DUARTE advised her that that will have to be done OP with pulmonology. She states she plans on switching to [place] [facility] from this point on. Pt advised that she will need to f/u with PCP for further equipment that she requested as they know her the best and will complete the proper documentation to try and get equipment covered, voices understanding. Pt voices no further questions/concerns/needs at this time. S[place]en TASNEEM DUARTE
--- NOTE | 2019-06-01 15:11 | PCM.PN.CARD ---
Subjectve: Shortness of breath improved significantly. Patient underwent coronary angiography which revealed no significant CAD. Objective: Vital Signs Temp Pulse Resp BP Pulse Ox 97.4 F L 92 18 86/57 L 97 06/01/19 14:50 06/01/19 14:50 06/01/19 14:50 06/01/19 14:50 06/01/19 14:50 Oxygen Flow Rate (L/min) 4 Oxygen Delivery Method Nasal Cannula Weight: 220 lb 7.396 oz Body Mass Index (BMI) 43.5 Finger Stick Blood Glucose 197 Intake and Output for Last 24 Hours 05/30/19 05/31/19 06/01/19 23:59 23:59 23:59 Intake Total 660 / 660 420 / 420 Output Total 3500 / 3500 1150 / 1150 Balance -2840 / -2840 -730 / -730 General: Awake, Alert, Oriented x 3 HEENT: Atraumatic Oral: Moist Mucosa Neck: Supple Lungs: Rales - Andrew Bases Cardiovascular: Regular Rhythm Abdomen: Soft Extremities: No edema Skin: No Rashes Psych/Mental Status: Appropriate 06/01/19 05:36: Sodium 138, Potassium 3.7, Chloride 100, Carbon Dioxide 32.0, Anion Gap 6, BUN 26 H, Creatinine 0.82, Est GFR (MDRD) Af Amer 99, Est GFR (MDRD) Non-Af 82, BUN/Creatinine Ratio 31.7 H, Glucose 216 H, Calcium 8.6 Rhythm: EKG: ECHO: Stress Test: Cardiac Cath: PCI: CT Surgery: Holter monitor: EPS: PPM: CXR: Chest CT Scan: Medical Necessity - Tobacco Use Smoking Status: Never smoker Tobacco Use: Secondhand Assessment/Plan 1. CHF: Patient has acute decompensated systolic heart failure due to nonischemic cardiomyopathy. Agree with Toprol-XL. At this time her blood pressure is borderline so we are not able to add LINDA inhibitor. Coronary angiography did not reveal significant CAD. Her LVEDP was elevated. Agree with keeping her on IV Lasix for at least another day. She will need an EF assessment in 3 months and if the EF is less than 35% she will need an ICD.
[2019-06-01] MEDS: Acetaminophen 325 MG Tablet 650 MG PO ×2 (17:31→23:14)
[2019-06-01 17:35] LABS: Bedside Glucose 240 mg/dL (70-110)
[2019-06-01] MEDS: Atorvastatin Calcium 10 MG Tablet PO (23:10)
[2019-06-01] MEDS: Amitriptyline 100 MG Tablet PO (23:11)
[2019-06-01] MEDS: cycloBENZAPRine HCl 5 MG TABLET PO (23:18)
[2019-06-02] VITALS (17 sets, daily range): BP systolic 99–126; BP diastolic 38–78; PULSE 70–98; RESP 12–20; TEMP 36.4–36.6; O2SAT 30–99
[2019-06-02 02:10] LABS: Bedside Glucose 274 mg/dL (70-110)
[2019-06-02] MEDS: Gabapentin 800 MG Tablet PO ×2 (06:11→13:33)
[2019-06-02] MEDS: cycloBENZAPRine HCl 5 MG TABLET PO ×2 (06:11→13:32)
[2019-06-02] MEDS: Nystatin Powder 15gm Bottle 1 APPLIC TOPICAL ×2 (06:12→13:32)
[2019-06-02] MEDS: Insulin Lispro 100 UNIT/ML INSULN.PEN SC ×2 (06:12→11:34)
[2019-06-02 06:26] LABS: Bedside Glucose 161 mg/dL (70-110)
[2019-06-02] MEDS: Ipratropium/Albuterol Sulfate 3 ML AMPUL.NEB INHALATION ×3 (07:32→15:42)
[2019-06-02 08:07] LABS: Anion Gap 8 (5-15); BUN 38 mg/dL (7-18); BUN/Creat Ratio 43.5 RATIO (10-20); Calcium,Total 8.4 mg/dL (8.5-10.1); Chloride 98 mmol/L (98-107); Creatinine, Serum 0.87 mg/dL (0.55-1.02); EST Glomerular Filtration Rate 76 mL/min (>60); Est Glom Filt Rate - Afr Amer 92 mL/min (>60); Estimated Creatinine Clearance 64.21 ml/min; Glucose 174 mg/dL (74-106); Potassium 3.3 mmol/L (3.5-5.1); Sodium Level 138 mmol/L (136-145)
--- NOTE | 2019-06-02 09:20 | NURSING ---
Patient found to be satting 85% on RA. Placed on 2L NC, now satting 94%. Will monitor.
[2019-06-02] MEDS: predniSONE 20 MG Tablet 40 MG PO (09:22)
[2019-06-02] MEDS: Enoxaparin 40 MG/0.4 ML Syringe SC (09:22)
[2019-06-02] MEDS: Aspirin E.C. 81 MG Tablet PO (09:22)
[2019-06-02] MEDS: DULoxetine Hcl 60 MG Capsule PO (09:22)
[2019-06-02] MEDS: Furosemide 40 MG Tablet PO (10:40)
[2019-06-02] MEDS: Metoprolol(XL)Succ 25 MG Tablet PO (10:40)
--- NOTE | 2019-06-02 11:22 | DCINST_ITS ---
- Discharge Diagnoses Current Active Problems: Current Active and Chronic Problems (Last Updated 06/01/19 @ 13:09 by Tran Perez) History of left heart catheterization (Acute 06/01/19) CHF (congestive heart failure) (Acute) Hypoxia (Acute) You will use the following diet at home:: Calorie/Carbohydrate Controlled (specify 1200, 1400, etc) - 1800 yas / day, Cardiac - 1800 cc per day fluid restriction. 2-3 grams sodium daily. Your food should be the consistency of: Regular Your liquids should be the consistency of: Regular/Thin Discharge Activity: Return to Normal Activity Additional Instructions: Talk to your doctor about having whether you may need a repeat sleep study, and pulmonary function testing. Avoid all smoke exposure. Use CPAP nightly. Check your blood sugar at least 3 times daily before meals, record the results in a journal, present them to your PCP at follow up. Check your weight daily, if 2 lb weight gain in 24 hours or 5 pounds in 7 days call your doctor for instructions regarding lasix. Allergies/Adverse Reactions: Allergies pregabalin [From Lyrica] Allergy (Verified 05/30/19 16:24) Other SI sulfamethoxazole [From Bactrim] Allergy (Verified 05/30/19 16:24) Rash tramadol HCl [From Ultram] Allergy (Verified 05/30/19 16:24) Swelling trimethoprim [From Bactrim] Allergy (Verified 05/30/19 16:24) Rash vancomycin Allergy (Verified 05/30/19 16:24) Swelling Medications to take at Discharge Aspirin E.C. [Ecotrin] 81 mg PO DAILY@0800 07/28/17 cholecalciferol (vitamin D3) 50 mcg (2,000 unit) capsule 2,000 unit PO DAILY #90 cap 11/03/18 amitriptyline 100 mg tablet 100 mg PO QHS #90 tab 12/04/18 gabapentin 800 mg tablet 800 mg PO TID #270 tab 12/04/18 simvastatin 20 mg tablet 20 mg PO QHS #90 tab 02/20/19 melatonin 10 mg tablet 10 mg PO QHS #30 tab 03/22/19 duloxetine 60 mg capsule,delayed release 60 mg PO BID #180 cap 05/15/19 albuterol sulfate 0.63 mg/3 mL solution for nebulization 0.63 mg INHALATION Q4H PRN #90 ml 05/22/19 albuterol sulfate 90 mcg/actuation aerosol inhaler 1 - 2 puff INHALATION Q6H PRN #8.5 g 05/22/19 Dulaglutide [Trulicity] 1.5 mg SUBCUT SA 05/30/19 Multivit-Min/Iron/Folic/Lutein [Centrum Silver Women Tablet] 1 tab PO DAILY 05/30/19 Furosemide [Lasix] 40 mg PO BID@1000,1800 #60 tab 06/02/19 Insulin Detemir [Levemir FlexPen] 40 unit SUBCUT QHS #15 ml 06/02/19 Metformin HCl [Glucophage] 500 mg PO BID #0 06/02/19 Metoprolol(XL)Succ [Toprol Xl (Beta Zelalem)] 25 mg PO DAILY #30 tab 06/02/19 predniSONE tablet 40 mg PO DAILY@0800 #8 tab 06/02/19 The following prescriptions were given: Furosemide [Lasix] 40 mg PO BID@1000,1800 #60 tab Transmission Status: Pending to [facility] predniSONE tablet 40 mg PO DAILY@0800 #8 tab Transmission Status: Pending to [facility] Metoprolol(XL)Succ [Toprol Xl (Beta Zelalem)] 25 mg PO DAILY #30 tab Transmission Status: Pending to [facility] Primary Care Physician: Nevaeh Oconnor MD [Primary Care Provider] - Please follow up with your Primary Care Physician in: 1 week Test Results: Test results from this visit will be discussed in further detail at your follow- up appointment, if applicable. Please Follow Up With: Pato Benitez MD When: as directed Proposed Discharge Date: 06/02/19
[2019-06-02 12:05] LABS: Bedside Glucose 279 mg/dL (70-110)
--- NOTE | 2019-06-02 12:40 | PCM.DC.SUM ---
<Aubrey Parada - Last Filed: 06/02/19 12:40> Discharge Date and Diagnosis - Problem List Patient Problems: Active and Suspected Problems (Last Updated 06/01/19 @ 13:09 by Tran Perez) History of left heart catheterization (Acute 06/01/19) CHF (congestive heart failure) (Acute) Hypoxia (Acute) Date of Admission: 05/30/19 Date of Discharge: 06/02/19 - Primary Discharge Diagnosis Active and Suspected Problems (Last Updated 06/01/19 @ 13:09 by Tran Perez) Acute systolic congestive heart failure Nonischemic cardiomyopathy Uncontrolled type 2 diabetes, morbid obesity, hyperglycemia Obstructive sleep apnea Secondhand smoke exposure Peripheral neuropathy Lupus - Secondary Discharge Diagnosis Chronic Problems (Last Updated 06/01/19 @ 13:09 by Tran No) Essential hypertension (Chronic) ANA (obstructive sleep apnea) (Chronic) Tachycardia (Chronic) Depression with anxiety (Chronic) Neuropathy (Chronic) Nonhealing surgical wound (Chronic) Obesity (Chronic) Open wound of abdominal wall with complication (Chronic) diabetic abscess wound right lower abdominal wall Open wound of neck with complication (Chronic) diabetic abscess wound right posterior neck diabetic abscess wound left posterior neck Abdominal panniculus, symptomatic (Chronic) Hyperlipidemia (Chronic) Morbid obesity due to excess calories (Chronic) History of MRSA infection (Chronic) Type 2 diabetes mellitus (Chronic) Hospital Course and Treatment Imaging Results: RAD/Chest PA and Lateral IMPRESSION: 1. Mild cardiomegaly. 2. Limited inspiration with right basilar atelectasis. Echo: Interpretation Summary The study was technically difficult. Contrast injection was performed. Mildly dilated left ventricle. The estimated ejection fraction is 30-35 %. There is moderate to severe global hypokinesis of the left ventricle. The left atrium is mildly enlarged. Mild-Moderate (1-2+) mitral valve insufficiency. Stage 2 diastolic dysfunction. Pulmonary artery systolic pressure is 35 mmHg. The study was technically difficult. Contrast injection was performed. Cath report: CONCLUSIONS No significant CAD. Severe LV systolic dysfunction. No significant . Mild to moderate MR Consults: Cardiology - Emmanuel Operations: None, - Procedures: 2-D Echocardiogram, Cardiac catheterization Summary of Care Provided: Hospital course: The patient is a 43 year old F past medical history of lupus, obstructive sleep apnea, peripheral neuropathy secondary to uncontrolled type 2 diabetes with morbid obesity, who presented the emergency room with complaints of chest pain, shortness of breath, lower extremity edema. She was found to have evidence of congestive heart failure with lower extremity edema, hypoxia on 4lpm @88%, tachycardia, tachypnea. She was placed on IV lasix, bipap, and admitted to the PCU on tele. There was concern she may have some underlying lung disease so she was also given aerosols and steroids. She had negative EKG, negative CP, negative Trop. Patient responded well to lasix with gradual improvement in O2 requirement and resolution of LE edema. Echo was obtained and demonstrated decreased EF at 35%. Cardiology was consulted. She was taken for a heart cath which showed no significant CAD. She was weaned off O2 at rest. She was ambulated and, as she is active at home in the community, will require 2 lpm o2 at discharge as she has hypoxia with ambulation. She will continue metoprolol at a lower dose as her blood pressure has been borderline, continue oral Lasix continue potassium supplement. No LINDA inhibitor added at this time due to borderline low blood pressure. Her Lantus was slightly increased. I recommended that she go on a fluid restricted and sodium restricted diet as well as a 1800 -calorie/day diet. I recommended she start checking her blood sugars at least 3 times per day record the results and given to her PCP follow-up for further instructions with her diabetes. She will need to hold her metformin until tomorrow morning as she underwent heart catheterization yesterday. She was discharged home in stable condition will follow-up with cardiology as directed, follow-up with her PCP in 1 week. Advised that she should avoid all smoke exposure as she has a severe secondhand smoke exposure history, she may need PFTs as an outpatient, she may benefit from a repeat sleep study as an outpatient. This patient was seen by Aubrey Parada PA-C under the supervision of Doctor Howie. [] Patient Problems: Active and Suspected Problems (Last Updated 06/01/19 @ 13:09 by Tran Perez) History of left heart catheterization (Acute 06/01/19) CHF (congestive heart failure) (Acute) Hypoxia (Acute) - Physical Exam Vitals/I&O's: Vital Signs Temp Pulse Resp BP Pulse Ox 98 F 70 18 119/38 L 98 06/02/19 11:18 06/02/19 11:18 06/02/19 11:18 06/02/19 11:18 06/02/19 12:15 Oxygen Flow Rate (L/min) [ 2 AMBULATION with Oxygen] Oxygen Flow Rate (L/min) [ 0 AMBULATING on Room Air] Oxygen Flow Rate (L/min) [At 0 REST on Room Air] Oxygen Flow Rate (L/min) 2 Oxygen Delivery Method Nasal Cannula Weight: 222 lb 14.197 oz Body Mass Index (BMI) 43.5 Finger Stick Blood Glucose 197 Intake and Output for Last 24 Hours 05/31/19 06/01/19 06/02/19 23:59 23:59 23:59 Intake Total 660 / 660 1400 / 1400 560 / 560 Output Total 3500 / 3500 2450 / 2450 350 / 350 Balance -2840 / -2840 -1050 / -1050 210 / 210 General: Alert, Oriented x3, Cooperative HEENT: Atraumatic, PERRLA, EOMI, Normocephalic Neck: Supple, No JVD, Negative Carotid Bruits Lungs: Clear to auscultation, Normal air movement Cardiovascular: Regular rate, No murmurs Abdomen: Bowel Sounds Present, Soft, Non Tender Extremities: No edema, Capillary Refill Less than 3 Seconds Skin: No rashes, No breakdown Musculoskeletal: No Tenderness to Palpation of Joints or Extremities Neurological: Cranial nerves II-XII grossly intact Psych/Mental Status: Normal Affect, Appropriate, Alert and oriented to time, place, person, mood and affect Laboratory Results 06/01/19 17:11: POC Glucose 240 H 06/01/19 22:57: POC Glucose 274 H 06/02/19 06:07: POC Glucose 161 H 06/02/19 07:15: Sodium 138, Potassium 3.3 L, Chloride 98, Carbon Dioxide 32.0, Anion Gap 8, BUN 38 H, Creatinine 0.87, Estim Creat Clear Calc 64.21, Est GFR (MDRD) Af Amer 92, Est GFR (MDRD) Non-Af 76, BUN/Creatinine Ratio 43.5 H, Glucose 174 H, Calcium 8.4 L 06/02/19 11:33: POC Glucose 279 H Current Medications Acetaminophen (Tylenol) 650 mg PO Q6H PRN PRN PRN Reason: Pain or Fever Last Admin: 06/01/19 23:14 Dose: 650 mg Documented by: Albuterol/Ipratropium (Duoneb) 3 ml INHALATION Q4HWA.RT [facility] Last Admin: 06/02/19 11:15 Dose: 3 ml Documented by: Amitriptyline HCl (Elavil) 100 mg PO QHS [facility] Last Admin: 06/01/19 23:11 Dose: 100 mg Documented by: Aspirin (Ecotrin) 81 mg PO DAILY@0800 [facility] Last Admin: 06/02/19 09:22 Dose: 81 mg Documented by: Atorvastatin Calcium (Lipitor) 10 mg PO QHS [facility] Last Admin: 06/01/19 23:10 Dose: 10 mg Documented by: Cyclobenzaprine HCl (Cyclobenzaprine Hcl) 5 mg PO TID [facility] Last Admin: 06/02/19 06:11 Dose: 5 mg Documented by: Duloxetine HCl (Cymbalta) 60 mg PO BID [facility] Last Admin: 06/02/19 09:22 Dose: 60 mg Documented by: Enoxaparin Sodium (Lovenox) 40 mg SC DAILY [facility] Last Admin: 06/02/19 09:22 Dose: 40 mg Documented by: Furosemide (Lasix) 40 mg PO BID@1000,1800 [facility] Last Admin: 06/02/19 10:40 Dose: 40 mg Documented by: Gabapentin (Neurontin) 800 mg PO TID [facility] Last Admin: 06/02/19 06:11 Dose: 800 mg Documented by: Glucagon () 1 mg IM .X1 PRN PRN Reason: Hypoglycemia Dextrose (Dextrose 10%-Water) 250 mls @ 999 mls/hr IV .Q16M PRN; Protocol PRN Reason: HYPOGLYCEMIA Sodium Chloride () 1,000 mls @ 0 mls/hr IV .Q0M [facility] Insulin Glargine (Lantus (Bkc)) 40 units SC QHS [facility] Last Admin: 06/01/19 23:14 Dose: 40 units Documented by: Insulin Human Lispro (Humalog Kwikpen (Bkc)) 0 unit SC ACHS [facility]; Protocol Last Admin: 06/02/19 11:34 Dose: 9 units Documented by: Metoprolol Succinate (Toprol Xl (Beta Zelalem)) 25 mg PO DAILY [facility] Last Admin: 06/02/19 10:40 Dose: 25 mg Documented by: Nystatin (Mycostatin Powder) 1 applic TOPICAL TID [facility]; Protocol Last Admin: 06/02/19 06:12 Dose: 1 applicatio Documented by: Ondansetron HCl (Zofran) 4 mg IV Q8H PRN PRN PRN Reason: NAUSEA/VOMITING Prednisone () 40 mg PO DAILY@0800 [facility] Last Admin: 06/02/19 09:22 Dose: 40 mg Documented by: Sodium Chloride () 10 - 40 ml IV UD PRN PRN Reason: SALINE FLUSH Last Admin: 06/01/19 17:16 Dose: 10 ml Documented by: Discharge Diet: Low fat/ Low Cholesterol, 1800 Calorie Control Diet, 2000 mg Sodium Diet Discharge Activity: Return to Normal Activity Home Medications: Medications to take at Discharge Aspirin E.C. [Ecotrin] 81 mg PO DAILY@0800 07/28/17 cholecalciferol (vitamin D3) 50 mcg (2,000 unit) capsule 2,000 unit PO DAILY #90 cap 11/03/18 amitriptyline 100 mg tablet 100 mg PO QHS #90 tab 12/04/18 gabapentin 800 mg tablet 800 mg PO TID #270 tab 12/04/18 simvastatin 20 mg tablet 20 mg PO QHS #90 tab 02/20/19 melatonin 10 mg tablet 10 mg PO QHS #30 tab 03/22/19 duloxetine 60 mg capsule,delayed release 60 mg PO BID #180 cap 05/15/19 albuterol sulfate 0.63 mg/3 mL solution for nebulization 0.63 mg INHALATION Q4H PRN #90 ml 05/22/19 albuterol sulfate 90 mcg/actuation aerosol inhaler 1 - 2 puff INHALATION Q6H PRN #8.5 g 05/22/19 Dulaglutide [Trulicity] 1.5 mg SUBCUT SA 05/30/19 Multivit-Min/Iron/Folic/Lutein [Centrum Silver Women Tablet] 1 tab PO DAILY 05/30/19 Furosemide [Lasix] 40 mg PO BID@1000,1800 #60 tab 06/02/19 Insulin Detemir [Levemir FlexPen] 40 unit SUBCUT QHS #15 ml 06/02/19 Metformin HCl [Glucophage] 500 mg PO BID #0 06/02/19 Metoprolol(XL)Succ [Toprol Xl (Beta Zelalem)] 25 mg PO DAILY #30 tab 06/02/19 Potassium Chloride [K-Dur] 20 meq PO DAILY #30 tab 06/02/19 predniSONE tablet 40 mg PO DAILY@0800 #8 tab 06/02/19 Following Prescrptions Were Given to Patient: Potassium Chloride [K-Dur] 20 meq PO DAILY #30 tab Transmission Status: Received by [facility] Furosemide [Lasix] 40 mg PO BID@1000,1800 #60 tab Transmission Status: Sent to [facility] predniSONE tablet 40 mg PO DAILY@0800 #8 tab Transmission Status: Sent to [facility] Metoprolol(XL)Succ [Toprol Xl (Beta Zelalem)] 25 mg PO DAILY #30 tab Transmission Status: Sent to [facility] Primary Care Physician: Nevaeh Oconnor MD [Primary Care Provider] - Please follow up with your Primary Care Physician in: 1 week Please Follow Up With: Pato Benitez MD When: as directed Please Follow Up With: Teja Moncada, FINANCE LECTURER-C Disposition: Home Minutes spent on discharge:: 35 Patient Condition:: Stable Medical Necessity - Tobacco Use Smoking Status: Never smoker Tobacco Use: Secondhand Meaningful Use Info Meaningful Use Diagnoses (Choose all that apply): CHF - CHF LINDA/ARB ordered at discharge?: No Reason LINDA/ARB not ordered?: Hypotension Documented LVEF (%): 35 <August Denise - Last Filed: 06/02/19 13:36> Discharge Date and Diagnosis - Primary Discharge Diagnosis Active and Suspected Problems (Last Updated 06/01/19 @ 13:09 by Tran Perez) History of left heart catheterization (Acute 06/01/19) CHF (congestive heart failure) (Acute) Hypoxia (Acute) - Secondary Discharge Diagnosis Chronic Problems (Last Updated 06/01/19 @ 13:09 by Tran Perez) Essential hypertension (Chronic) ANA (obstructive sleep apnea) (Chronic) Tachycardia (Chronic) Depression with anxiety (Chronic) Neuropathy (Chronic) Nonhealing surgical wound (Chronic) Obesity (Chronic) Open wound of abdominal wall with complication (Chronic) diabetic abscess wound right lower abdominal wall Open wound of neck with complication (Chronic) diabetic abscess wound right posterior neck diabetic abscess wound left posterior neck Abdominal panniculus, symptomatic (Chronic) Hyperlipidemia (Chronic) Morbid obesity due to excess calories (Chronic) History of MRSA infection (Chronic) Type 2 diabetes mellitus (Chronic) Hospital Course and Treatment Operations: None, - Procedures: 2-D Echocardiogram, Cardiac catheterization Summary of Care Provided: Patient seen and examined independently. Data reviewed. I agree with the above note by the physician assistant womens volleyball coach. The patient is a 43 year old F presents with shortness of breath. Patient was found to have CHF. EF was 35%. Left heart catheterization was normal. Patient was treated with medical management. She will follow-up with cardiology as outpatient and reevaluation.[] - Physical Exam Vitals/I&O's: Vital Signs Temp Pulse Resp BP Pulse Ox 36.6 C 70 18 119/38 L 98 06/02/19 11:18 06/02/19 11:18 06/02/19 11:18 06/02/19 11:18 06/02/19 12:15 Oxygen Flow Rate (L/min) [ 2 AMBULATION with Oxygen] Oxygen Flow Rate (L/min) [ 0 AMBULATING on Room Air] Oxygen Flow Rate (L/min) [At 0 REST on Room Air] Oxygen Flow Rate (L/min) 2 Oxygen Delivery Method Nasal Cannula Weight: 101.1 kg Body Mass Index (BMI) 43.5 Finger Stick Blood Glucose 197 Intake and Output for Last 24 Hours 05/31/19 06/01/19 06/02/19 23:59 23:59 23:59 Intake Total 660 / 660 1400 / 1400 560 / 560 Output Total 3500 / 3500 2450 / 2450 350 / 350 Balance -2840 / -2840 -1050 / -1050 210 / 210 General: Alert, Cooperative HEENT: Atraumatic, Normocephalic Neck: No Nodes, Trachea Midline Lungs: Clear to auscultation, Normal air movement, No rhonchi, No wheeze Cardiovascular: Regular rate, No murmurs Abdomen: Bowel Sounds Present, Soft, Non Tender, Non-Distended Extremities: No edema, No Calf Tenderness Psych/Mental Status: Normal Affect, Appropriate Laboratory Results 06/01/19 17:11: POC Glucose 240 H 06/01/19 22:57: POC Glucose 274 H 06/02/19 06:07: POC Glucose 161 H 06/02/19 07:15: Sodium 138, Potassium 3.3 L, Chloride 98, Carbon Dioxide 32.0, Anion Gap 8, BUN 38 H, Creatinine 0.87, Estim Creat Clear Calc 64.21, Est GFR (MDRD) Af Amer 92, Est GFR (MDRD) Non-Af 76, BUN/Creatinine Ratio 43.5 H, Glucose 174 H, Calcium 8.4 L 06/02/19 11:33: POC Glucose 279 H Current Medications Acetaminophen (Tylenol) 650 mg PO Q6H PRN PRN PRN Reason: Pain or Fever Last Admin: 06/01/19 23:14 Dose: 650 mg Documented by: Albuterol/Ipratropium (Duoneb) 3 ml INHALATION Q4HWA.RT [facility] Last Admin: 06/02/19 11:15 Dose: 3 ml Documented by: Amitriptyline HCl (Elavil) 100 mg PO QHS [facility] Last Admin: 06/01/19 23:11 Dose: 100 mg Documented by: Aspirin (Ecotrin) 81 mg PO DAILY@0800 [facility] Last Admin: 06/02/19 09:22 Dose: 81 mg Documented by: Atorvastatin Calcium (Lipitor) 10 mg PO QHS [facility] Last Admin: 06/01/19 23:10 Dose: 10 mg Documented by: Cyclobenzaprine HCl (Cyclobenzaprine Hcl) 5 mg PO TID [facility] Last Admin: 06/02/19 13:32 Dose: 5 mg Documented by: Duloxetine HCl (Cymbalta) 60 mg PO BID [facility] Last Admin: 06/02/19 09:22 Dose: 60 mg Documented by: Enoxaparin Sodium (Lovenox) 40 mg SC DAILY [facility] Last Admin: 06/02/19 09:22 Dose: 40 mg Documented by: Furosemide (Lasix) 40 mg PO BID@1000,1800 [facility] Last Admin: 06/02/19 10:40 Dose: 40 mg Documented by: Gabapentin (Neurontin) 800 mg PO TID [facility] Last Admin: 06/02/19 13:33 Dose: 800 mg Documented by: Glucagon () 1 mg IM .X1 PRN PRN Reason: Hypoglycemia Dextrose (Dextrose 10%-Water) 250 mls @ 999 mls/hr IV .Q16M PRN; Protocol PRN Reason: HYPOGLYCEMIA Sodium Chloride () 1,000 mls @ 0 mls/hr IV .Q0M [facility] Insulin Glargine (Lantus (Bkc)) 40 units SC QHS [facility] Last Admin: 06/01/19 23:14 Dose: 40 units Documented by: Insulin Human Lispro (Humalog Kwikpen (Bkc)) 0 unit SC ACHS [facility]; Protocol Last Admin: 06/02/19 11:34 Dose: 9 units Documented by: Metoprolol Succinate (Toprol Xl (Beta Zelalem)) 25 mg PO DAILY [facility] Last Admin: 06/02/19 10:40 Dose: 25 mg Documented by: Nystatin (Mycostatin Powder) 1 applic TOPICAL TID [facility]; Protocol Last Admin: 06/02/19 13:32 Dose: 1 applicatio Documented by: Ondansetron HCl (Zofran) 4 mg IV Q8H PRN PRN PRN Reason: NAUSEA/VOMITING Prednisone () 40 mg PO DAILY@0800 [facility] Last Admin: 06/02/19 09:22 Dose: 40 mg Documented by: Sodium Chloride () 10 - 40 ml IV UD PRN PRN Reason: SALINE FLUSH Last Admin: 06/01/19 17:16 Dose: 10 ml Documented by: Discharge Diet: Low fat/ Low Cholesterol, 1800 Calorie Control Diet, 2000 mg Sodium Diet Discharge Activity: Return to Normal Activity Disposition: Home Minutes spent on discharge:: 35 Patient Condition:: Stable Medical Necessity - Tobacco Use Smoking Status: Never smoker Tobacco Use: Secondhand Meaningful Use Info Meaningful Use Diagnoses (Choose all that apply): CHF - CHF LINDA/ARB ordered at discharge?: No Reason LINDA/ARB not ordered?: Hypotension Documented LVEF (%): 35 Inpatient E&M: [id number] Disch Hosp
--- NOTE | 2019-06-04 15:52 | CASEMGMT ---
Case Management DC F/u Call: DC Date: 06/02/2019 DC Diagnosis: Acute systolic congestive heart failure, Nonischemic cardiomyopathy, Uncontrolled type 2 diabetes, morbid obesity, hyperglycemia, Obstructive sleep apnea, Secondhand smoke exposure, Peripheral neuropathy, Lupus DC Disposition: Home Lace/Strata: 02/27 Called patient listed cell phone- rang multiple times and appeared with off the hook sound. Called listed home phone, patient answered, introduced self and role. Patient states she is doing okay but still tired. Confirmed picked up her medications and denies any issues, concerns or questions with ACI, F/o or medications. Has an appointment with Pulm for PFTs on 06/06/2019 and states her PCP appointment is this Tuesday. Thanked patient for choosing care with [facility] and ended conversation. Pola Delgadillo RNCM
== END 2019-06-02 17:01 | disposition home or self-care (01) | DRG 286 ==
LOC: ED 18:25 → PCU 22:08
PROVIDERS: Physician Assistant; Admitting Provider Family Medicine; Emergency Provider Emergency Medicine; PCP Internal Medicine
DX: I11.0 Hypertensive heart disease with heart failure (principal); I50.21 Acute systolic (congestive) heart failure; J96.01 Acute respiratory failure with hypoxia; Z68.41 Body mass index [BMI] 40.0-44.9, adult; L02.211 Cutaneous abscess of abdominal wall; L02.11 Cutaneous abscess of neck; E11.628 Type 2 diabetes mellitus with other skin complications; I42.8 Other cardiomyopathies; E11.65 Type 2 diabetes mellitus with hyperglycemia; E66.01 Morbid (severe) obesity due to excess calories; G47.33 Obstructive sleep apnea (adult) (pediatric); E11.42 Type 2 diabetes mellitus with diabetic polyneuropathy; F32.9 Major depressive disorder, single episode, unspecified; F41.9 Anxiety disorder, unspecified; E78.5 Hyperlipidemia, unspecified; M32.9 Systemic lupus erythematosus, unspecified; Z79.82 Long term (current) use of aspirin; Z79.4 Long term (current) use of insulin; Z77.22 Contact with and (suspected) exposure to environmental tobacco smoke (acute) (chronic); Z86.14 Personal history of Methicillin resistant Staphylococcus aureus infection
CPT/HCPCS: 36415; 36600; 71046; 80048; 82803; 82962; 83036; 83880; 84484; 85025; 93005; 93306; 93458; 94002; 94003; 94640; 97162; 97166; 97802; 99152; 99153; 99251; 99284; Q9957; Q9967; A4216; C1769; C1894; C8929; G0463; J1940

== ENCOUNTER → 2019-06-06 14:39 | Outpatient (CLI) | payer OTHER, SELFPAY ==
[2019-06-06 13:59] VITALS: BMI 39.9
[2019-06-06 17:15] LABS: Anion Gap 5 (5-15); BUN 21 mg/dL (7-18); BUN/Creat Ratio 29.2 RATIO (10-20); Calcium,Total 9.1 mg/dL (8.5-10.1); Chloride 97 mmol/L (98-107); Creatinine, Serum 0.72 mg/dL (0.55-1.02); EST Glomerular Filtration Rate 95 mL/min (>60); Est Glom Filt Rate - Afr Amer 115 mL/min (>60); Glucose 193 mg/dL (74-106); Magnesium 1.6 mg/dL (1.6-2.6); Potassium 3.3 mmol/L (3.5-5.1); Sodium Level 140 mmol/L (136-145)
== END ==
PROVIDERS: PCP Internal Medicine; Referring Provider Internal Medicine; Visit Provider Internal Medicine
DX: I50.9 Heart failure, unspecified (principal)
CPT/HCPCS: 36415; 80048; 83735

== ENCOUNTER → 2019-06-11 06:57 | Outpatient (CLI) | payer OTHER, SELFPAY ==
[2019-06-01 09:17] VITALS: BMI 43.5
[2019-06-06 13:59] VITALS: BMI 39.9
--- NOTE | 2019-06-11 15:20 | PFTCOMP ---
COMPLETE PULMONARY FUNCTION TEST INTERPRETATION Brief HPI: Patient is a 43 year old female, currently under the care of Teja Moncada, who presents to [facility] for complete pulmonary function tests secondary to diagnosis of dyspnea. Respiratory therapist reports good effort and reproducible results. Interpretation: Forced expiration spirometry shows no large airways obstructive ventilatory defect with an FEV1 of 77% predicted. FVC is reduced, but this is likely secondary to poor expiratory effort of only 4 seconds. There is no significant bronchodilator response by strict ATS criteria. Spirograms are of good quality and plateau normally. The respiratory flow volume loop shows a normal pattern. Lung volumes by body plethysmography show a normal total lung capacity at 3.73 L, 84% predicted. All other lung volumes are within normal limits. Diffusion capacity by carbon monoxide is decreased at 53% predicted. The airway resistance is normal. No previous pulmonary function tests were available for review. Impression: Isolated reduction in diffusion capacity consistent with a possible pulmonary vascular disorder.
== END ==
PROVIDERS: PCP Internal Medicine; Referring Provider Nurse Practitioner Family; Visit Provider Nurse Practitioner Family
DX: R06.00 Dyspnea, unspecified (principal)
CPT/HCPCS: 94060; 94726; 94729

== ENCOUNTER → 2019-06-29 | Outpatient (CLI) | payer OTHER, SELFPAY ==
[2019-06-28 18:42] VITALS: BMI 39.1
[2019-06-29 15:25] LABS: Bacteria 0 SEEN /hpf (None Seen); Mucous, Urine 0 SEEN /hpf (<or=2+)
[2019-06-29 15:29] LABS: Absolute Lymphocyte Count 2.61 X10^3/uL (0.83-4.51); Absolute Neutrophil Count 6.4 X10^3/uL (2.0-7.7); Basophil# 0.02 X10^3/uL; Basophil% 0.2 % (0-1); Eosinophil# 0.09 X10^3/uL; Eosinophils% 0.9 % (0-5); Hematocrit 44.2 % (37-47); Hemoglobin 14.1 g/dL (12.0-15.0); Lymphocyte # 2.61 X10^3/ul (4.0); Lymphocyte % 26.7 % (19-41); Mean Corp Hgb Conc 31.9 g/dL (32-36); Mean Corpuscular Hgb 26.7 pg (27.0-32.0); Mean Corpuscular Volume 83.7 fL (81-99); Mean Platelet Vol. 11.3 fl (6.2-12.0); Monocyte# 0.61 X10^3/uL; Monocyte% 6.2 % (0-10); NRBC Flagged by Analyzer 0 % (0-5); Neutrophil # 6.41 X10^3/uL (2.7-7.7); Neutrophil % 65.5 % (47-70); Platelet Count 255 K/mm3 (150-450); RBC Distribution Width CV 13.2 % (11.6-14.6); Red Blood Count 5.28 M/mm3 (4.2-5.4); White Blood Count 9.8 K/mm3 (4.4-11.0)
[2019-06-29 15:49] LABS: Color, Urine Yellow (Yellow); Glucose, Dipstick Normal (Normal); Ketone-Dipstick Negative (Negative); Leukocyte Esterase-Dipstick 100 /ul (Negative); Nitrite-Dipstick Negative (Negative); Occult Blood-Urine Negative /ul (Negative); Protein-Dipstick 30 mg/dl (Negative); Specific Gravity, Urine 1.015 (1.002-1.030); Urine Bilirubin Dipstick Negative (Negative); Urine Clarity Clear (Clear); Urine Urobilinogen Normal (Normal)
[2019-06-29 15:55] LABS: Anion Gap 6 (5-15); BUN 12 mg/dL (7-18); BUN/Creat Ratio 17.3 RATIO (10-20); Calcium,Total 9.1 mg/dL (8.5-10.1); Chloride 99 mmol/L (98-107); EST Glomerular Filtration Rate 99 mL/min (>60); Est Glom Filt Rate - Afr Amer 119 mL/min (>60); Glucose 228 mg/dL (74-106); Potassium 3.5 mmol/L (3.5-5.1); Sodium Level 137 mmol/L (136-145)
[2019-06-29 16:27] LABS: Squamous Epithelial Cells - UA 10-25 SEEN /hpf (5-10)
[2019-06-29 16:28] LABS: Red Blood Cells-Urine 0 SEEN /hpf (0-5); White Blood Cells 0-5 SEEN /hpf (0-5)
== END | disposition home or self-care (01) ==
LOC: LABSPEC 15:17
PROVIDERS: PCP Internal Medicine; Referring Provider Internal Medicine; Visit Provider Internal Medicine
DX: R10.9 Unspecified abdominal pain (principal); I50.9 Heart failure, unspecified
CPT/HCPCS: 80048; 81001; 85025; 87077; 87086; 87088

== ENCOUNTER → 2019-07-17 | Outpatient (CLI) | payer OTHER, SELFPAY ==
[2019-07-17 08:31] VITALS: BMI 39.1
[2019-07-18 13:29] LABS: Red Blood Cells-Urine 0 SEEN /hpf (0-5)
[2019-07-18 13:48] LABS: Color, Urine Yellow (Yellow); Glucose, Dipstick 100 mg/dl (Normal); Ketone-Dipstick Negative (Negative); Leukocyte Esterase-Dipstick 500 /ul (Negative); Nitrite-Dipstick Negative (Negative); Occult Blood-Urine Negative /ul (Negative); Protein-Dipstick 15 mg/dl (Negative); Urine Bilirubin Dipstick Negative (Negative); Urine Clarity Sl. Cloudy (Clear); Urine Urobilinogen 1 mg/dl (Normal); Urine pH 6.5 (5.0 - 8.0)
[2019-07-18 13:58] LABS: ALB/GLOB Ratio 0.7 RATIO (0.9-2.4); AST(SGOT) 20 U/L (15-37); Alanine Aminotransfer ALT/SGPT 25 U/L (13-56); Albumin, Serum 3.2 g/dL (3.2-5.0); Alkaline Phosphatase 161 U/L (45-117); Anion Gap 8 (5-15); BUN 9 mg/dL (7-18); BUN/Creat Ratio 15.7 RATIO (10-20); Calcium,Total 9.3 mg/dL (8.5-10.1); Chloride 95 mmol/L (98-107); Creatinine, Serum 0.57 mg/dL (0.55-1.02); EST Glomerular Filtration Rate 123 mL/min (>60); Erythrocyte Sedimentation Rate 54 mm/hr (0-20); Est Glom Filt Rate - Afr Amer 149 mL/min (>60); Globulin 4.6 g/dL (2.2-4.2); Glucose 211 mg/dL (74-106); Potassium 3.2 mmol/L (3.5-5.1); Protein, Total 7.8 g/dL (6.4-8.2); Sodium Level 136 mmol/L (136-145); T4 Free Direct 0.97 ng/dL (0.76-1.46); Thyroid Stim Hormone (TSH) 2.13 uIU/mL (0.358-3.74)
[2019-07-18 14:04] LABS: Bacteria RARE /hpf (None Seen); Renal Epithelial Cells 0-5 SEEN /hpf (0-5); Squamous Epithelial Cells - UA 5-10 SEEN /hpf (5-10); White Blood Cells 0-5 SEEN /hpf (0-5)
[2019-07-18 14:05] LABS: Mucous, Urine 0 SEEN /hpf (<or=2+)
[2019-07-20 01:25] LABS: ANTINUCLEAR ANTIBODIES DIRECT Negative (Negative)
== END | disposition home or self-care (01) ==
PROVIDERS: PCP Internal Medicine; Referring Provider Internal Medicine; Visit Provider Internal Medicine
DX: Z13.29 Encounter for screening for other suspected endocrine disorder (principal); M32.9 Systemic lupus erythematosus, unspecified; I50.9 Heart failure, unspecified; N39.0 Urinary tract infection, site not specified
CPT/HCPCS: 80053; 81001; 84439; 84443; 85652; 86038; 86140; 86225; 86235; 87086; 87088; 87186

== ENCOUNTER → 2019-07-31 09:00 | Outpatient (CLI) | payer OTHER, SELFPAY ==
[2019-07-24 15:48] VITALS: BMI 37.8
== END ==
PROVIDERS: PCP Internal Medicine; Referring Provider Nurse Practitioner Acute Care; Visit Provider Nurse Practitioner Acute Care
DX: G47.33 Obstructive sleep apnea (adult) (pediatric) (principal)

== ENCOUNTER → 2019-08-21 20:34 | Outpatient (CLI) | payer OTHER, SELFPAY ==
[2019-06-06 13:59] VITALS: BMI 39.9
== END ==
LOC: SL 20:35
PROVIDERS: PCP Internal Medicine; Referring Provider Internal Medicine; Visit Provider Internal Medicine
DX: G47.33 Obstructive sleep apnea (adult) (pediatric) (principal)
CPT/HCPCS: 95811

== ENCOUNTER → 2019-09-11 14:52 | Outpatient (CLI) | payer OTHER, SELFPAY ==
[2019-09-11 14:04] VITALS: BMI 37.8
[2019-09-11 16:58] LABS: Absolute Lymphocyte Count 3.13 X10^3/uL (0.83-4.51); Absolute Neutrophil Count 7.8 X10^3/uL (2.0-7.7); Basophil# 0.03 X10^3/uL; Basophil% 0.2 % (0-1); Eosinophil# 0.13 X10^3/uL; Eosinophils% 1.1 % (0-5); Hematocrit 44.6 % (37-47); Hemoglobin 14.2 g/dL (12.0-15.0); Lymphocyte # 3.13 X10^3/ul (4.0); Mean Corp Hgb Conc 31.8 g/dL (32-36); Mean Corpuscular Hgb 28.7 pg (27.0-32.0); Mean Corpuscular Volume 90.1 fL (81-99); Mean Platelet Vol. 11.1 fl (6.2-12.0); Monocyte# 0.86 X10^3/uL; Monocyte% 7.1 % (0-10); NRBC Flagged by Analyzer 0 % (0-5); Neutrophil # 7.83 X10^3/uL (2.7-7.7); Neutrophil % 65.2 % (47-70); Platelet Count 293 K/mm3 (150-450); RBC Distribution Width CV 15.4 % (11.6-14.6); RBC Distribution Width SD 49.7 fl (35.1-43.9); Red Blood Count 4.95 M/mm3 (4.2-5.4)
[2019-09-11 17:08] LABS: ALB/GLOB Ratio 0.7 RATIO (0.9-2.4); AST(SGOT) 33 U/L (15-37); Alanine Aminotransfer ALT/SGPT 43 U/L (13-56); Albumin, Serum 3.5 g/dL (3.2-5.0); Alkaline Phosphatase 187 U/L (45-117); Anion Gap 9 (5-15); BUN 11 mg/dL (7-18); BUN/Creat Ratio 16.8 RATIO (10-20); Calcium,Total 9.7 mg/dL (8.5-10.1); Chloride 100 mmol/L (98-107); Creatinine, Serum 0.66 mg/dL (0.55-1.02); EST Glomerular Filtration Rate 105 mL/min (>60); Est Glom Filt Rate - Afr Amer 128 mL/min (>60); Globulin 4.7 g/dL (2.2-4.2); Glucose 341 mg/dL (74-106); Potassium 4.3 mmol/L (3.5-5.1); Protein, Total 8.2 g/dL (6.4-8.2); Sodium Level 138 mmol/L (136-145)
[2019-09-11 17:14] LABS: Vitamin B12 572 pg/mL (211-911)
== END ==
LOC: BIMLAB 14:53
PROVIDERS: Specialist; PCP Internal Medicine; Referring Provider Internal Medicine; Visit Provider Internal Medicine
DX: E11.9 Type 2 diabetes mellitus without complications (principal); I50.9 Heart failure, unspecified; G62.9 Polyneuropathy, unspecified
CPT/HCPCS: 36415; 80053; 82607; 85025

== ENCOUNTER → 2019-09-27 14:48 | Outpatient (CLI) | payer OTHER, SELFPAY ==
[2019-08-14 11:16] VITALS: BMI 37.8
[2019-09-11 14:04] VITALS: BMI 37.8
--- NOTE | 2019-09-27 15:38 | CT_ITS ---
STUDY: CT ABDOMEN AND PELVIS WITH AND WITHOUT CONTRAST REASON FOR EXAM: Female, 43 years old. UTI''S, LOW ABD PAIN, CHOLECYSTECTOMY, JAMEL/BSO, UMBILECTOMY RADIATION DOSAGE (If Supplied By Facility): CTDIvol = ( 24.91 ) mGy, DLP = ( 4511.57 ) mGycm TECHNIQUE: Transaxial images were obtained from the dome of the diaphragm to the symphysis pubis without oral contrast. IV 100mL Isovue-300 was administered. Sagittal and coronal images were reconstructed. Individualized dose optimization techniques were used for this CT. COMPARISON: April 25, 2019 FINDINGS: The visualized lung bases are unremarkable. The visualized portions of the heart are within normal limits. The liver is enlarged and fatty infiltrated. There is a tiny cyst in the left lobe. Bile ducts are nondilated. Gallbladder not visualized consistent with cholecystectomy Normal spleen. Normal pancreas. Normal bilateral adrenal glands. Normal right kidney. Normal left kidney. Normal visualized stomach. Normal small intestine. There is diffuse fecal retention throughout the colon.. No evidence for acute appendicitis Normal abdominal aorta. Normal inferior vena cava. Normal retroperitoneum. Incompletely distended thick-walled bladder of indeterminate significance... Postop change status post hysterectomy Normal abdominal wall. Lumbar spine demonstrates degenerative change. CT/CT Abd/Pelvis W/WO Contrast IMPRESSION: Enlarged diffusely fatty infiltrated liver with tiny hepatic cyst incompletely distended thick-walled bladder of uncertain significance. Postop change status post cholecystectomy and hysterectomy Electronically Signed: Daniel Queen MD at 16:21 EDT , Service support ,
== END ==
LOC: CT 14:53
PROVIDERS: PCP Internal Medicine; Referring Provider Urology; Visit Provider Urology
DX: N39.0 Urinary tract infection, site not specified (principal); R10.30 Lower abdominal pain, unspecified
CPT/HCPCS: 74178; 93306; 93308; Q9957; Q9967; A4216; C8924

== ENCOUNTER 2019-11-15 09:05 | Day surgery (SDC) | payer OTHER, SELFPAY ==
[2019-10-22 07:08] VITALS: BMI 37.8
[2019-11-08 11:45] LABS: Bacteria 0 SEEN /hpf (None Seen); Mucous, Urine 0 SEEN /hpf (<or=2+); Red Blood Cells-Urine 0 SEEN /hpf (0-5); White Blood Cells 0 SEEN /hpf (0-5)
[2019-11-08 12:10] LABS: Color, Urine Yellow (Yellow); Glucose, Dipstick 1000 mg/dl (Normal); Ketone-Dipstick Negative (Negative); Leukocyte Esterase-Dipstick 25 /ul (Negative); Nitrite-Dipstick Negative (Negative); Occult Blood-Urine Negative /ul (Negative); Protein-Dipstick Negative (Negative); Urine Bilirubin Dipstick Negative (Negative); Urine Clarity Clear (Clear); Urine Urobilinogen Normal (Normal)
[2019-11-08 12:13] LABS: Hematocrit 48.5 % (37-47); Hemoglobin 15.7 g/dL (12.0-15.0); Mean Corp Hgb Conc 32.4 g/dL (32-36); Mean Corpuscular Hgb 28.3 pg (27.0-32.0); Mean Corpuscular Volume 87.5 fL (81-99); Mean Platelet Vol. 10.8 fl (6.2-12.0); Platelet Count 352 K/mm3 (150-450); RBC Distribution Width CV 12.3 % (11.6-14.6); RBC Distribution Width SD 39.9 fl (35.1-43.9); Red Blood Count 5.54 M/mm3 (4.2-5.4)
[2019-11-08 12:21] LABS: Prothrombin Time (Protime)PT. 12.4 SECONDS (11.7-14.9)
[2019-11-08 12:30] LABS: Squamous Epithelial Cells - UA 0-5 SEEN /hpf (5-10)
[2019-11-08 12:46] LABS: Anion Gap 9 (5-15); BUN 17 mg/dL (7-18); BUN/Creat Ratio 20.3 RATIO (10-20); Calcium,Total 9.2 mg/dL (8.5-10.1); Chloride 93 mmol/L (98-107); Creatinine, Serum 0.84 mg/dL (0.55-1.02); EST Glomerular Filtration Rate 79 mL/min (>60); Est Glom Filt Rate - Afr Amer 96 mL/min (>60); Glucose 453 mg/dL (74-106); Potassium 4.2 mmol/L (3.5-5.1); Sodium Level 133 mmol/L (136-145)
--- NOTE | 2019-11-12 16:36 | HP.PCM_ITS ---
History and Physical Date of Admission: 11/15/19 [facility] HPI History of Present Illness Details: This is a 43-year-old female that presents here today for ICD placement. She has a history of nonischemic cardiomyopathy, tachycardia, obstructive sleep apnea, hypertension. 06/11/2019: Patient was seen originally in the hospital about 2 weeks ago when she presented with congestive heart failure. Patient was found to have an EF of 30 to 35%. She underwent coronary angiography which did not reveal any significant CAD. Patient feels significantly better compared to how she felt when she was in the hospital. 10/10/2019: Patient is doing fairly well from a cardiac standpoint. She does get episodes of palpitations on and off. Her baseline heart rate is high. When she had a 2D echo her heart rate was 120 bpm and she was in sinus rhythm. At this visit, her metoprolol was increased to 100 mg a day. AICD placement was discussed. 11/11/2019: Pt is here today to discuss ICD placement. She did discuss a sub Q ICD, however her insurance company will not cover this. She will be getting an ICD. Pt sts that she occasionally is having sharp chest pain it does not last long but feels it has increased in frequency. She is on chronic O2 and will be starting a Bipap. She does feel like she can not get enough air at times. She sts that last year she had blacking out episodes. She has not had any for a while. She does occasionally feel that her HR is fast. She does not have any edema. Intake Vital Signs 11/08/19 Height 5 ft 1 in 11/08/19 Weight: 212 lb 11/08/19 BMI 40.0 11/08/19 BP 123/86 H 11/08/19 Blood Pressure Location Rt brachial 11/08/19 Position Sitting 11/08/19 Respiration 20 H 11/08/19 Pulse 112 H 11/08/19 Pulse Source Monitor 11/08/19 Pulse Oximetry (%) 93 11/08/19 Oxygen Delivery Method nasal canula 11/08/19 Oxygen Flow Rate (L/min) 2 Intake Visit Reasons: ICD placement Call Circuit Worker Required: No Is patient in pain?: No Allergies pregabalin [From Lyrica] Allergy (Verified 11/08/19 10:43) Other sulfamethoxazole [From Bactrim] Allergy (Verified 11/08/19 10:43) Rash tramadol HCl [From Ultram] Allergy (Verified 11/08/19 10:43) Swelling trimethoprim [From Bactrim] Allergy (Verified 11/08/19 10:43) Rash vancomycin Allergy (Verified 11/08/19 10:43) Swelling Medications Aspirin E.C. [Ecotrin] 81 mg PO DAILY@0800 07/28/17 [History Confirmed 11/08/19] cholecalciferol (vitamin D3) 50 mcg (2,000 unit) capsule 2,000 unit PO DAILY #90 cap 11/03/18 [Rx Confirmed 11/08/19] albuterol sulfate 90 mcg/actuation aerosol inhaler 1 - 2 puff INHALATION Q6H PRN #8.5 g 05/22/19 [Rx Confirmed 11/08/19] Multivit-Min/Iron/Folic/Lutein [Centrum Silver Women Tablet] 1 tab PO DAILY 05/30/19 [History Confirmed 11/08/19] Handicap Placard See Rx Instructions .ROUTE .MEDSUPPLY #1 ea 06/06/19 [Rx Confirmed 10/19/19] albuterol sulfate 2.5 mg INHALATION Q4H PRN #90 ml 06/06/19 [Rx Confirmed 11/08/19] insulin detemir U-100 100 unit/mL (3 mL) subcutaneous pen 44 unit SUBCUT QHS #15 ml 06/06/19 [Rx Confirmed 11/08/19] melatonin 10 mg tablet 10 mg PO QHS #30 tab 08/14/19 [Rx Confirmed 11/08/19] hydrocortisone 2.5 % topical cream 1 applic TOPICAL BID PRN #28 g 09/11/19 [Rx Confirmed 11/08/19] mecobalamin (vitamin B12) 1,000 mcg chewable tablet 1,000 mcg PO DAILY #60 tab 09/11/19 [Rx Confirmed 11/08/19] amitriptyline 100 mg tablet 100 mg PO QHS #90 tab 09/26/19 [Rx Confirmed 11/08/19] duloxetine 60 mg capsule,delayed release 60 mg PO BID #180 cap 09/26/19 [Rx Confirmed 11/08/19] furosemide 40 mg tablet 40 mg PO BID #180 tab 09/26/19 [Rx Confirmed 11/08/19] gabapentin 800 mg tablet 800 mg PO TID #270 tab 09/26/19 [Rx Confirmed 11/08/19] ketoconazole 2 % shampoo 1 applic TOPICAL 2XW #120 ml 09/26/19 [Rx Confirmed 11/08/19] lisinopril 2.5 mg tablet 2.5 mg PO DAILY #90 tab 09/26/19 [Rx Confirmed 11/08/19] magnesium 250 mg tablet See Rx Instructions .ROUTE .COMPLEX #90 tab 09/26/19 [Rx Confirmed 11/08/19] metformin 850 mg tablet 850 mg PO BID #180 tab 09/26/19 [Rx Confirmed 11/08/19] potassium chloride 20 mEq tablet,extended release(part/cryst) 20 meq PO BID 60 Days #180 tab 09/26/19 [Rx Confirmed 11/08/19] simvastatin 20 mg tablet 20 mg PO QHS #90 tab 09/26/19 [Rx Confirmed 11/08/19] metoprolol succinate 100 mg tablet,extended release 24 hr 100 mg PO DAILY #30 tab 10/10/19 [Rx Confirmed 11/08/19] lorazepam 0.5 mg tablet 0.25 - 0.5 mg PO DAILY PRN #14 tab 10/17/19 [Rx Confirmed 11/08/19] [facility] Medical History Dilated cardiomyopathy (Chronic) ANA on CPAP (Chronic) CHF (congestive heart failure) (Chronic) Arthritis (Chronic) IBS (irritable bowel syndrome) (Chronic) Lupus (Chronic) Neuropathy (Chronic) Migraines (Chronic) Anxiety and depression (Chronic) Diverticulitis (Chronic) Type 2 diabetes mellitus without complication (Chronic) Surgical History History of left heart catheterization (Resolved 06/01/19) History of cholecystectomy (Resolved) History of hysterectomy (Resolved) History of neck surgery (Resolved) navel removal (Resolved) Family History Other Arthritis CVA (cerebral vascular accident) Depression Diabetes Heart disease Hyperlipemia Hypertension Kidney disease Thyroid disorder Social History (Updated 11/09/19 @ 17:11 by KANWAL Magana) alcohol intake: never substance use type: does not use caffeine: No what type of physical activity do you participate in: none ROS Const Const: Positive for fatigue; negative for weakness, fever(s) or headache(s) Eyes Eyes: Negative for blind spots, loss of peripheral vision or transient loss of vision ENT ENT: Negative for headache(s), dizziness, tinnitus or Nosebleed/epistaxis Cardio Chest Pain: Yes Palpitations: Yes Edema: None Muscle aches with walking: None Resp Respiratory: Positive for SOB with activity, SOB at rest and SOB orthopnea\SOB lying down; negative for Cough GI GI: Negative nausea, vomiting, heartburn or vomiting blood/hematemesis : Negative for hematuria Musc Musc: Positive for muscle aches/ myalgia Neuro Neuro: Negative for dizziness, lightheadedness, near syncope, syncope, orthostatic symptoms, headache(s) or weakness Akash Hematologic/Lymphatic: Negative for easy bleeding Endo Endo: Positive for fatigue Cardiology Exam Const Appearance: cooperative; negative acute distress Nutritional Appearance: obese Head Head: normocephalic and atraumatic Ears: hearing grossly normal bilaterally Nose: external nose normal Face and Sinus: face symmetric Mouth: moist mucous membranes Teeth and gingiva: fair dentition Eyes General: appearance normal, both eyes and all related structures Eyelids: eyelids normal Conjunctivae: conjunctivae normal Neck Neck: trachea midline and no JVD Chest Chest inspection: symmetric chest movement and other (on O2); negative pursed lip breathing Auscultation: Bilateral: Clear to Auscultation Cardio Rate: tachycardic Rhythm: regular rhythm Heart sounds: S1 normal and S2 normal No Murmurs GI GI: normal to inspection and obese Neuro General: alert, awake and oriented x3 Gait: Negative ataxic Skin Skin: no rashes or lesions noted; negative atrophy or jaundice Extremities Pulses: Normal: Right Posterior Tibial Pulse, Left Posterior Tibial Pulse Lower Extremity Edema: None: Bilateral Musculoskel Musculoskeletal: No joint tenderness Psych Psychological: normal affect Assessment & Plan 1. Dilated cardiomyopathy I42.0 Plan Patient does have persistent decreased ejection fraction. She is agreeable to have a prophylactic ICD placed. She is scheduled to do this in the near future. A SDM interaction occurred at this visit using an SDM tool prior to initial implant of ICD. 2. Chronic systolic congestive heart failure I50.22 Plan Patient currently does not have any symptoms of congestive heart failure. She will continue with aggressive medical management. 3. Essential hypertension I10 Plan Blood pressure is well controlled on current medications, we do not recommend any changes at this time. 4. Tachycardia R00.0 Plan Patient's heart rate is not controlled on her metoprolol. We will further discuss with Dr. Benitez with which medication he would like to add. 5. Mixed hyperlipidemia E78.2 Plan Pt is d/t have these checked. For now she will continue with current low dose statin. Supplemental Info Supplemental Information Echocardiogram 05/2019: The study was technically difficult. Contrast injection was performed. Mildly dilated left ventricle. The estimated ejection fraction is 30-35 %. There is moderate to severe global hypokinesis of the left ventricle. The left atrium is mildly enlarged. Mild-Moderate (1-2+) mitral valve insufficiency. Stage 2 diastolic dysfunction. Pulmonary artery systolic pressure is 35 mmHg. The study was technically difficult. Contrast injection was performed. CORONARY ANGIOGRAPHY 02/2020: DOMINANCE: Right Dominant LEFT HEART ASSESSMENT Left Ventricular Ejection Fraction: by LV Gram 20-25 % Global Hypokinesis - Severe LEFT MAIN: Angiographically normal LEFT ANTERIOR DESCENDING ARTERY: Mild luminal irregularities CIRCUMFLEX ARTERY: Mild luminal irregularities RIGHT CORONARY ARTERY: Mild luminal irregularities VALVE FINDINGS: No Aortic Valve Stenosis Mitral Valve Insufficiency - Grade 2 Diagnostics Electrocardiogram 11/08/19 Pacemaker Check 11/08/19 COVID (Procedure Consent) Procedure Criteria Procedure Criteria: Yes Elective The surgeon/proceduralist and patient have dis cussed in detail the risk of exposure to and/or potential harm posed by the COVID-19 virus with having a surgery/procedure at this time versus the risk of delaying the surgery/procedure. It is not possible to know either the risk of delaying the surgery or procedure or chance of getting an infection with perfect accuracy, but a joint decision was made between the patient and the surgeon/proceduralist to proceed at this time with the scheduled surgery/procedure as indicated on the consent form. Addendum 11/15/2019: Patient seen and evaluated prior to procedure with no changes noted from prior exam.
[2019-11-14 08:08] VITALS: BMI 40.0
[2019-11-15] VITALS (12 sets, daily range): BP systolic 110–123; BP diastolic 58–80; PULSE 96–131; RESP 16–20; TEMP 36.5–37; O2SAT 90–98; BMI 40.0
[2019-11-15] MEDS: Cefazolin 2 GM in 0.9% Normal Saline 100 ML IV (11:40)
[2019-11-15 15:46] LABS: Bedside Glucose 329 mg/dL (70-110)
--- NOTE | 2019-11-15 15:50 | RAD_ITS ---
STUDY: X-RAY CHEST REASON FOR EXAM: Female, 43 years old. post pacer, looking for pneumothorax TECHNIQUE: PA and lateral COMPARISON: 05/30/2019 FINDINGS: There is nonspecific elevation right hemidiaphragm. There is no demonstrated pleural abnormality. Pacer noted on the left with electrode in right ventricle. Heart is enlarged.. Normal mediastinum and paulette. Normal visualized pulmonary arteries. Normal visualized aortic arch and descending thoracic aorta. Dorsal spine demonstrates scoliosis and degenerative change.. Normal visualized ribs, clavicles, and shoulders. There is no demonstrated abnormality of the visualized soft tissue structures of the upper abdomen. RAD/Chest PA and Lateral IMPRESSION: Cardiomegaly. No evidence for pneumothorax status post left pacemaker placement Electronically Signed: Daniel Queen MD at 16:33 EDT , Service support ,
--- NOTE | 2019-11-15 15:53 | RAD_ITS ---
STUDY: X-RAY CHEST REASON FOR EXAM: Female, 43 years old. post pacer, expiration view TECHNIQUE: AP portable COMPARISON: 11/15/2019 3:56 PM FINDINGS: There is mild diffuse pulmonary interstitial edema... There is no demonstrated pleural abnormality. Heart is enlarged. Normal mediastinum and paulette. Normal visualized pulmonary arteries. Normal visualized aortic arch and descending thoracic aorta. Pacer has been placed on the left with electrode in right ventricle. Normal visualized thoracic spine. Normal visualized ribs, clavicles, and shoulders. There is no demonstrated abnormality of the visualized soft tissue structures of the upper abdomen. RAD/Chest 1 View IMPRESSION: Mild pulmonary interstitial edema. No evidence for pneumothorax status post left pacemaker placement with tip in right ventricle Electronically Signed: Daniel Queen MD at 16:35 EDT , Service support ,
[2019-11-15] MEDS: Furosemide 40 MG Tablet PO (19:12)
[2019-11-15] MEDS: Acetaminophen 325 MG Tablet PO (19:12)
[2019-11-15] MEDS: MELATONIN 10 MG TABLET PO (21:54)
[2019-11-15] MEDS: Atorvastatin Calcium 10 MG Tablet PO (21:54)
[2019-11-15] MEDS: DULoxetine Hcl 60 MG Capsule PO (21:54)
[2019-11-15] MEDS: Amitriptyline 100 MG Tablet PO (21:54)
[2019-11-15 22:11] LABS: Bedside Glucose 349 mg/dL (70-110)
[2019-11-16 02:56] VITALS: PULSE 119
[2019-11-16 03:49] VITALS: BP 112/70; PULSE 118; RESP 16; TEMP 36.6; O2SAT 98
--- NOTE | 2019-11-16 06:00 | RAD_ITS ---
STUDY: X-RAY CHEST REASON FOR EXAM: Female, 43 years old. POST PERMANENT ICD/ PACEMAKER INSERTION, PATIENT COULD NOT RAISE LEFT ARM. TECHNIQUE: PA and lateral views of the chest. Lateral view is nearly nondiagnostic. COMPARISON: None. FINDINGS: There is a left-sided defibrillator. There is no definitive pneumothorax. The lungs are clear and expanded. There is no demonstrated pleural abnormality. There is borderline cardiomegaly. Normal mediastinum and paulette. Normal visualized pulmonary arteries. Normal visualized aortic arch and descending thoracic aorta. Normal visualized thoracic spine. Normal visualized ribs, clavicles, and shoulders. There is no demonstrated abnormality of the visualized soft tissue structures of the upper abdomen. RAD/Chest PA and Lateral IMPRESSION: Left-sided pacer defibrillator. Mild cardiomegaly no visualized pneumothorax. Electronically Signed: Brittni Gaviria MD at 6:54 EDT Tel , Service support ,
[2019-11-16 06:41] LABS: Bedside Glucose 319 mg/dL (70-110)
[2019-11-16 06:48] VITALS: PULSE 115
--- NOTE | 2019-11-16 07:37 | PCM.PN.CARD ---
Subjectve: Patient seen and evaluated. Appears to be doing well. Objective: Vital Signs Temp Pulse Resp BP Pulse Ox 97.9 F 115 H 16 112/70 98 11/16/19 03:49 11/16/19 06:48 11/16/19 03:49 11/16/19 03:49 11/16/19 03:49 Oxygen Flow Rate (L/min) 2 Oxygen Delivery Method Nasal Cannula Weight: 212 lb Body Mass Index (BMI) 40.0 Finger Stick Blood Glucose 197 Intake and Output for Last 24 Hours 11/14/19 11/15/19 11/16/19 23:59 23:59 23:59 Intake Total 360 / 360 200 / 200 Output Total 1100 / 1100 1025 / 1025 Balance -740 / -740 -825 / -825 General: Awake, Alert, Oriented x 3 HEENT: PERRL, EOMI, Sclera Non Icteric Neck: Supple, Good ROM, No Lymph Node Enlargement Lungs: Clear to auscultation Cardiovascular: Regular Rhythm, Normal S1, Normal S2, No Murmurs, No Rubs, No Gallops Rhythm: EKG: ECHO: Stress Test: Cardiac Cath: PCI: CT Surgery: Holter monitor: EPS: PPM: CXR: Chest CT Scan: Medical Necessity - Tobacco Use Smoking Status: Never smoker Tobacco Use: Non-smoker Assessment/Plan Status post implantable defibrillator. No pneumothorax noted. Patient will be seen and followed up in the office.
--- NOTE | 2019-11-16 08:36 | DCINST_ITS ---
Discharge Diet: No Restrictions Discharge Activity: May Not Drive Call your doctor if your incision/area has: Continuous Slow Oozing, Sudden Increased Bleeding, Increased Pain/ Swelling, Increased Redness, Foul Smelling Discharge, Swelling at the incision site Call your doctor if you observe: Fever of 101 or Higher, Shortness of breath, Dizziness, Fainting spells, Swelling in the ankles, Chest pain, Prolonged hiccoughing, Increased palpitations (irregular heartbeat) Suture Line Care: Avoid Pulling/Pushing, Avoid Pinching/Bending Cleanse incision/area with: Keep Dressing Clean & Dry Additional Dressing/Incision Instructions:: When dressing is removed, wash and dry incision. Keep covered with a light bandage if it is rubbing against your clothing. Do not cover the incision with an airtight bandage. Change the bandage daily. Do not remove steri strips. The strips will fall off on their own. Additional Instructions: Signs and Symptoms to Report to Your Doctor at Once - call your doctor's office or Doctor's Registry ([phone]) Call 911 or go to the nearest Emergency Department if you feel you need urgent care. *Infection (fever, increased redness or swelling at the incision site, drainage from the incision increased pain at the pacemaker site) *Shortness of breath *Dizziness *Fainting spells *Swelling in the ankles *Chest pain *Prolonged hiccoughing *Increased palpitaitons (irregular heartbeat) Medications: Take your pain medication as directed. Refer to your discharge instruction sheet for a list of medications you are to take. Allergies/Adverse Reactions: Allergies pregabalin [From Lyrica] Allergy (Verified 11/08/19 10:43) Other SI sulfamethoxazole [From Bactrim] Allergy (Verified 11/08/19 10:43) Rash tramadol HCl [From Ultram] Allergy (Verified 11/08/19 10:43) Swelling trimethoprim [From Bactrim] Allergy (Verified 11/08/19 10:43) Rash vancomycin Allergy (Verified 11/08/19 10:43) Swelling Medications to take at Discharge Aspirin E.C. [Ecotrin] 81 mg PO DAILY@0800 07/28/17 cholecalciferol (vitamin D3) 50 mcg (2,000 unit) capsule 2,000 unit PO DAILY #90 cap 08/09/19 albuterol sulfate 90 mcg/actuation aerosol inhaler 1 - 2 puff INHALATION Q6H PRN #8.5 g 05/22/19 Multivit-Min/Iron/Folic/Lutein [Centrum Silver Women Tablet] 1 tab PO DAILY 05/30/19 Handicap Placard See Rx Instructions .ROUTE .MEDSUPPLY #1 ea 06/06/19 albuterol sulfate 2.5 mg INHALATION Q4H PRN #90 ml 06/06/19 insulin detemir U-100 100 unit/mL (3 mL) subcutaneous pen 44 unit SUBCUT QHS #15 ml 06/06/19 melatonin 10 mg tablet 10 mg PO QHS #30 tab 08/14/19 hydrocortisone 2.5 % topical cream 1 applic TOPICAL BID PRN #28 g 09/11/19 mecobalamin (vitamin B12) 1,000 mcg chewable tablet 1,000 mcg PO DAILY #60 tab 09/11/19 amitriptyline 100 mg tablet 100 mg PO QHS #90 tab 09/26/19 duloxetine 60 mg capsule,delayed release 60 mg PO BID #180 cap 09/26/19 furosemide 40 mg tablet 40 mg PO BID #180 tab 09/26/19 gabapentin 800 mg tablet 800 mg PO TID #270 tab 09/26/19 ketoconazole 2 % shampoo 1 applic TOPICAL 2XW #120 ml 09/26/19 lisinopril 2.5 mg tablet 2.5 mg PO DAILY #90 tab 09/26/19 magnesium 250 mg tablet See Rx Instructions .ROUTE .COMPLEX #90 tab 09/26/19 metformin 850 mg tablet 850 mg PO BID #180 tab 09/26/19 potassium chloride 20 mEq tablet,extended release(part/cryst) 20 meq PO BID 60 Days #180 tab 09/26/19 simvastatin 20 mg tablet 20 mg PO QHS #90 tab 09/26/19 lorazepam 0.5 mg tablet 0.25 - 0.5 mg PO DAILY PRN #14 tab 10/17/19 metoprolol succinate 100 mg tablet,extended release 24 hr 100 mg PO DAILY #90 tab 11/12/19 metoprolol succinate 50 mg tablet,extended release 24 hr 50 mg PO DAILY #90 tab 11/12/19 Primary Care Physician: Nevaeh Oconnor MD [Primary Care Provider] - Test Results: Test results from this visit will be discussed in further detail at your follow- up appointment, if applicable. When: [facility] 11/21 AT1;30PM Proposed Discharge Date: 11/16/19
[2019-11-16 08:58] VITALS: BP 116/81; PULSE 120; RESP 18; TEMP 37.2; O2SAT 96
[2019-11-16 09:04] VITALS: PULSE 137
[2019-11-16] MEDS: Metoprolol(XL)Succ 100 MG Tablet PO (09:04)
[2019-11-16] MEDS: Lisinopril 2.5 MG Tablet PO (09:04)
[2019-11-16] MEDS: Aspirin E.C. 81 MG Tablet PO (09:04)
[2019-11-16] MEDS: Cyanocobalamin 500 MCG Tablet 1000 MCG PO (09:04)
[2019-11-16 09:05] VITALS: PULSE 137
[2019-11-16] MEDS: DULoxetine Hcl 60 MG Capsule PO (09:05)
[2019-11-16] MEDS: Metoprolol(XL)Succ 50 MG Tablet PO (09:05)
[2019-11-16] MEDS: Gabapentin 800 MG Tablet PO (09:05)
[2019-11-16] MEDS: Multivitamins,Ther W-Minerals Tablet 1 TABLET PO (09:05)
[2019-11-16] MEDS: metFORMIN HCl 850 MG Tablet PO (09:05)
[2019-11-16] MEDS: Furosemide 40 MG Tablet PO (09:05)
[2019-11-16] MEDS: Acetaminophen 325 MG Tablet PO (09:06)
--- NOTE | 2019-11-16 10:10 | PHA.DC.MR ---
Pharmacy Service has performed discharge medication reconciliation for this patient. No new medications issued at time of discharge. Medications reviewed are from previously reported home medications. The patient's discharge medication list was reviewed for discrepancies and discrepancies were resolved. Home Medications Aspirin E.C. [Ecotrin] 81 mg PO DAILY@0800 07/28/17 cholecalciferol (vitamin D3) 50 mcg (2,000 unit) capsule 2,000 unit PO DAILY #90 cap 11/03/18 albuterol sulfate 90 mcg/actuation aerosol inhaler 1 - 2 puff INHALATION Q6H PRN #8.5 g 05/22/19 Multivit-Min/Iron/Folic/Lutein [Centrum Silver Women Tablet] 1 tab PO DAILY 05/30/19 Handicap Placard See Rx Instructions .ROUTE .MEDSUPPLY #1 ea 06/06/19 albuterol sulfate 2.5 mg INHALATION Q4H PRN #90 ml 06/06/19 insulin detemir U-100 100 unit/mL (3 mL) subcutaneous pen 44 unit SUBCUT QHS #15 ml 06/06/19 melatonin 10 mg tablet 10 mg PO QHS #30 tab 08/14/19 hydrocortisone 2.5 % topical cream 1 applic TOPICAL BID PRN #28 g 09/11/19 mecobalamin (vitamin B12) 1,000 mcg chewable tablet 1,000 mcg PO DAILY #60 tab 09/11/19 amitriptyline 100 mg tablet 100 mg PO QHS #90 tab 09/26/19 duloxetine 60 mg capsule,delayed release 60 mg PO BID #180 cap 09/26/19 furosemide 40 mg tablet 40 mg PO BID #180 tab 09/26/19 gabapentin 800 mg tablet 800 mg PO TID #270 tab 09/26/19 ketoconazole 2 % shampoo 1 applic TOPICAL 2XW #120 ml 09/26/19 lisinopril 2.5 mg tablet 2.5 mg PO DAILY #90 tab 09/26/19 magnesium 250 mg tablet See Rx Instructions .ROUTE .COMPLEX #90 tab 09/26/19 metformin 850 mg tablet 850 mg PO BID #180 tab 09/26/19 potassium chloride 20 mEq tablet,extended release(part/cryst) 20 meq PO BID 60 Days #180 tab 09/26/19 simvastatin 20 mg tablet 20 mg PO QHS #90 tab 09/26/19 lorazepam 0.5 mg tablet 0.25 - 0.5 mg PO DAILY PRN #14 tab 10/17/19 metoprolol succinate 100 mg tablet,extended release 24 hr 100 mg PO DAILY #90 tab 11/12/19 metoprolol succinate 50 mg tablet,extended release 24 hr 50 mg PO DAILY #90 tab 11/12/19
== END 2019-11-16 08:37 | disposition home or self-care (01) ==
LOC: CLSP 09:05 → PCU 11-16 10:58
PROVIDERS: Specialist; PCP Internal Medicine; Referring Provider Internal Medicine Cardiovascular Disease; Visit Provider Internal Medicine Cardiovascular Disease
DX: I42.0 Dilated cardiomyopathy (principal); I11.0 Hypertensive heart disease with heart failure; I50.22 Chronic systolic (congestive) heart failure; I34.0 Nonrheumatic mitral (valve) insufficiency; E78.2 Mixed hyperlipidemia; G47.33 Obstructive sleep apnea (adult) (pediatric); M19.90 Unspecified osteoarthritis, unspecified site; K58.9 Irritable bowel syndrome, unspecified; E11.40 Type 2 diabetes mellitus with diabetic neuropathy, unspecified; F41.9 Anxiety disorder, unspecified; F32.9 Major depressive disorder, single episode, unspecified; G43.909 Migraine, unspecified, not intractable, without status migrainosus; Z87.19 Personal history of other diseases of the digestive system; Z79.4 Long term (current) use of insulin; Z79.82 Long term (current) use of aspirin; Z79.84 Long term (current) use of oral hypoglycemic drugs; Z79.899 Other long term (current) drug therapy
CPT/HCPCS: 33249; 36415; 71045; 71046; 80048; 81001; 82962; 85027; 85610; 87635; 93641; 94799; 99152; 99153; J7040; J7050; C1894; J2405; U0003

== ENCOUNTER → 2020-04-29 11:17 | Outpatient (CLI) | payer OTHER, SELFPAY ==
[2020-04-29 10:41] VITALS: BMI 40.0
[2020-04-29 12:58] LABS: Absolute Neutrophil Count 5.7 X10^3/uL (2.0-7.7); Basophil# 0.04 X10^3/uL; Basophil% 0.4 % (0-1); Eosinophil# 0.07 X10^3/uL; Eosinophils% 0.7 % (0-5); Hematocrit 48.7 % (37-47); Hemoglobin 15.6 g/dL (12.0-15.0); Mean Corpuscular Hgb 28.3 pg (27.0-32.0); Mean Corpuscular Volume 88.4 fL (81-99); Mean Platelet Vol. 11.8 fl (6.2-12.0); Monocyte# 0.89 X10^3/uL; Monocyte% 8.4 % (0-10); NRBC Flagged by Analyzer 0 % (0-5); Neutrophil # 5.72 X10^3/uL (2.7-7.7); Neutrophil % 54.1 % (47-70); Platelet Count 311 K/mm3 (150-450); RBC Distribution Width CV 13.7 % (11.6-14.6); RBC Distribution Width SD 44.1 fl (35.1-43.9); Red Blood Count 5.51 M/mm3 (4.2-5.4); White Blood Count 10.6 K/mm3 (4.4-11.0)
[2020-04-29 13:37] LABS: Anion Gap 16 (5-15); BUN 10 mg/dL (7-18); Calcium,Total 9.4 mg/dL (8.5-10.1); Chloride 89 mmol/L (98-107); Creatinine, Serum 0.83 mg/dL (0.55-1.02); EST Glomerular Filtration Rate 80 mL/min (>60); Est Glom Filt Rate - Afr Amer 97 mL/min (>60); Glucose 393 mg/dL (74-106); Magnesium 1.7 mg/dL (1.6-2.6); Potassium 3.1 mmol/L (3.5-5.1); Sodium Level 130 mmol/L (136-145); Thyroid Stim Hormone (TSH) 1.28 uIU/mL (0.358-3.74)
== END ==
LOC: LAB 11:21
PROVIDERS: PCP Internal Medicine; Referring Provider Internal Medicine Cardiovascular Disease; Visit Provider Internal Medicine Cardiovascular Disease
DX: Z45.02 Encounter for adjustment and management of automatic implantable cardiac defibrillator (principal)
CPT/HCPCS: 36415; 80048; 83735; 84443; 85025

== ENCOUNTER → 2020-05-07 15:00 | Outpatient (CLI) | payer OTHER, SELFPAY ==
[2020-04-29 10:41] VITALS: BMI 40.0
[2020-05-07 15:51] LABS: Anion Gap 8 (5-15); BUN 12 mg/dL (7-18); BUN/Creat Ratio 13.1 RATIO (10-20); Calcium,Total 8.8 mg/dL (8.5-10.1); Chloride 93 mmol/L (98-107); Creatinine, Serum 0.92 mg/dL (0.55-1.02); EST Glomerular Filtration Rate 72 mL/min (>60); Est Glom Filt Rate - Afr Amer 87 mL/min (>60); Glucose 419 mg/dL (74-106); Potassium 3.3 mmol/L (3.5-5.1); Sodium Level 133 mmol/L (136-145)
== END ==
PROVIDERS: PCP Internal Medicine; Referring Provider Internal Medicine Cardiovascular Disease; Visit Provider Internal Medicine Cardiovascular Disease
DX: I10 Essential (primary) hypertension (principal); I42.0 Dilated cardiomyopathy; E78.5 Hyperlipidemia, unspecified; F32.9 Major depressive disorder, single episode, unspecified; F41.9 Anxiety disorder, unspecified; E66.01 Morbid (severe) obesity due to excess calories; R00.0 Tachycardia, unspecified; Z45.02 Encounter for adjustment and management of automatic implantable cardiac defibrillator; Z95.810 Presence of automatic (implantable) cardiac defibrillator
CPT/HCPCS: 36415; 80048

== ENCOUNTER → 2020-05-20 12:16 | Outpatient (CLI) | payer OTHER, SELFPAY ==
[2020-04-29 10:41] VITALS: BMI 40.0
[2020-05-20 13:48] LABS: Anion Gap 13 (5-15); BUN 11 mg/dL (7-18); Chloride 93 mmol/L (98-107); Creatinine, Serum 0.91 mg/dL (0.55-1.02); EST Glomerular Filtration Rate 72 mL/min (>60); Est Glom Filt Rate - Afr Amer 87 mL/min (>60); Glucose 498 mg/dL (74-106); Potassium 3.6 mmol/L (3.5-5.1); Sodium Level 131 mmol/L (136-145)
== END ==
PROVIDERS: PCP Internal Medicine; Referring Provider Internal Medicine Cardiovascular Disease; Visit Provider Internal Medicine Cardiovascular Disease
DX: I10 Essential (primary) hypertension (principal); I42.0 Dilated cardiomyopathy; E87.6 Hypokalemia; Z95.810 Presence of automatic (implantable) cardiac defibrillator
CPT/HCPCS: 36415; 80048

== ENCOUNTER → 2020-06-09 11:50 | Outpatient (CLI) | payer OTHER, SELFPAY ==
[2020-05-23 08:29] VITALS: BMI 41.1
== END ==
LOC: PSN 11:52
PROVIDERS: PCP Internal Medicine; Referring Provider Internal Medicine Cardiovascular Disease; Visit Provider Internal Medicine Cardiovascular Disease
DX: I42.0 Dilated cardiomyopathy (principal); Z45.02 Encounter for adjustment and management of automatic implantable cardiac defibrillator; R00.0 Tachycardia, unspecified
CPT/HCPCS: 93225; 93226

== ENCOUNTER 2020-06-17 13:56 | Emergency (ER) | payer OTHER, SELFPAY ==
[2020-05-23 08:29] VITALS: BMI 41.1
[2020-06-17 13:59] VITALS: BP 152/92; PULSE 110; RESP 18; TEMP 36.2; O2SAT 96; BMI 43.4
--- NOTE | 2020-06-17 14:10 | ED.DCSUM_ITS ---
- ER Visit Summary Date of Service: 06/17/20 Chief Complaint: [Dental pain] History of Present Illness: The patient is a 44 F [presents to the emergency department complaint of left upper dental pain that started yesterday. Patient states that she was chewing a piece of hard candy and her tooth broke. Patient does not have a dentist at this time. She denies any fevers. Patient has history of diabetes. Patient has a history of pacemaker and defibrillator for history of CHF.] Physical Examination: [HEENT-PERRLA, EOMI. Cranial nerves II through XII grossly intact. TMs clear. Mucous membranes moist. No adenopathy. Titian- patient has a broken left upper premolar tooth #11. Tooth is tender to palpation. There is no gingival erythema or abscess noted. Cardiovascular-regular rate and rhythm without murmur or ectopy Lungs-clear to auscultation, chest wall stable without crepitus or subcu emphysema Abdomen-normoactive bowel sounds, soft, nontender, no rebound or rigidity, no peritoneal signs. Extremities-intact ?4, normal range of motion, normal pulses, atraumatic] Test Results: [None indicated] Emergency Department Course and Treatment: [] Treatment Plan: [Patient will be given a prescription for oxacillin and a few Marvin for pain. She will be given a list of dentists in the area. Patient advised to follow-up with dentist at earliest possible time for definitive care. ] Disposition: [Discharged home in stable condition] Impression: [Dental pain Dental fracture] This note was generated with [employer] dictation software. It may contain incorrect words, spelling, and punctuation that were not noted in review of the chart prior to signing ED Disposition - Plan for ED Patient: Referrals: Nevaeh Oconnor MD [Primary Care Provider] -
== END 2020-06-17 14:23 | disposition home or self-care (01) ==
LOC: ED 14:19
PROVIDERS: Emergency Provider Emergency Medicine; PCP Internal Medicine
DX: S02.5XXA Fracture of tooth (traumatic), initial encounter for closed fracture (principal); X58.XXXA Exposure to other specified factors, initial encounter; Y93.89 Activity, other specified; Y92.9 Unspecified place or not applicable; Y99.9 Unspecified external cause status; E11.9 Type 2 diabetes mellitus without complications; I50.9 Heart failure, unspecified; Z95.0 Presence of cardiac pacemaker; Z79.4 Long term (current) use of insulin; Z79.899 Other long term (current) drug therapy
CPT/HCPCS: 99283

== ENCOUNTER 2020-06-18 07:16 | Inpatient (IN) | payer OTHER, SELFPAY ==
[2020-06-17 13:59] VITALS: BMI 43.4
[2020-06-18] VITALS (9 sets, daily range): BP systolic 123–152; BP diastolic 73–92; PULSE 87–119; RESP 14–20; TEMP 36.1–37.1; O2SAT 92–96; BMI 41.6; BMI 40.2
--- NOTE | 2020-06-18 07:34 | CT_ITS ---
STUDY: CT FACIAL BONES WITH CONTRAST REASON FOR EXAM: Female, 44 years old. Left facial swelling. History of dental fracture. RADIATION DOSAGE (If Supplied By Facility): CTDIvol = ( 29.38 ) mGy, DLP = ( 584.19 ) mGycm TECHNIQUE: Axial CT images of the facial bones were obtained post IV administration of with multiplanar reconstructions. The protocol utilizes one or more of the following dose reduction techniques: automated exposure control, adjustment of mA and/or kV according to patient size, and/or use of iterative reconstruction technique. Individualized dose optimization techniques were used for this CT. COMPARISON: Comparison is made with prior examination dated 06/18/2020. FINDINGS: Soft Tissues: Small submental lymph nodes. Focal soft tissue swelling along the anterior aspect of the maxilla more prominent on the left side with a focal area measuring 1.4 cm x 0.8 cm of decreased attenuation suggestive of focal abscess. Facial Bones: Normal: No fracture or destructive process. Mandible/TMJ: Normal. Orbital Contents: Normal globes, extraocular muscles, optic nerves, intraconal and extraconal spaces. Normal lamina papyracea. Visualized Paranasal Sinuses: Nodular mucosal thickening along the anterior and lateral castellanos of the left maxillary sinus. Visualized Mastoid Air Cells: Normal. CT/Sinus/Facial Bone WITH Contras IMPRESSION: Nodular mucosal thickening along the anterior and lateral castellanos of the left maxillary sinus. Focal subcutaneous soft tissue swelling overlying the maxilla worse on the left side with a focal hypodensity measuring 1.4 cm x 0.8 cm suggestive of a small abscess collection. Electronically Signed: Kashmir Good MD at 8:54 EDT , Service support ,
--- NOTE | 2020-06-18 07:35 | ED.DCSUM_ITS ---
History of Present Illness Chief Complaint: Dental Informant: Patient Onset: Yesterday Context: Sudden Onset Associated Symptoms: Jaw Swelling Narrative: Patient is a 44-year-old female with history of diabetes mellitus, dilated cardiomyopathy, tachycardia, hypertension, hyperlipidemia, anxiety/depression, SLE and ANA presenting with dental pain and facial swelling. Patient states she cracked a tooth yesterday. She was seen in the ER and placed on antibiotics and given [place] for pain control. She last took a dose of [place] yesterday evening. When she woke up this morning she had worsening pain in the left upper jaw and facial swelling. She states she feels like there is a blister on the top of her mouth and is giving her hard time swallowing. She denies any difficulty breathing. She also feels that her left face is swollen. She denies any ear pain. She denies any vision changes. She denies any fever or chills. Patient states she checked her blood sugar this morning notes it was 220 which is good for her. She did recently have a pacemaker placed. No other complaints at this time. States she has similar episode 2 years ago which required a 2-day hospital admission. Past Medical History - Allergies and Home Meds Allergies/Adverse Reactions: Allergies pregabalin [From Lyrica] Allergy (Verified 06/18/20 07:20) Other SI sulfamethoxazole [From Bactrim] Allergy (Verified 06/18/20 07:20) Rash tramadol HCl [From Ultram] Allergy (Verified 06/18/20 07:20) Swelling trimethoprim [From Bactrim] Allergy (Verified 06/18/20 07:20) Rash vancomycin Allergy (Verified 06/18/20 07:20) Swelling Primary Care Physician: Nevaeh Oconnor MD [Primary Care Provider] - Past Medical History: - - diabetes mellitus, dilated cardiomyopathy, tachycardia, hypertension, hyperlipidemia, anxiety/depression, SLE and ANA Surgical History: - - Multiple I&D secondary to abscesses including bilateral axilla hidradenitis interventions with resections, cholecystectomy, total hysterectomy, D&C x2 secondary to miscarriages x2. Smoking Status: Never smoker - Family History Maternal Family History: Family History (Last Reviewed 05/23/20 @ 08:25 by Lizbeth Colindres) Other Arthritis CVA (cerebral vascular accident) Depression Diabetes Heart disease Hyperlipemia Hypertension Kidney disease Thyroid disorder Family History: Reports: - - Patient notes a maternal family history of brain cancer. Paternal Family History: Family History (Last Reviewed 05/23/20 @ 08:25 by Lizbeth Colindres) Other Arthritis CVA (cerebral vascular accident) Depression Diabetes Heart disease Hyperlipemia Hypertension Kidney disease Thyroid disorder Family History: Reports: - - Patient notes her father was very healthy only medical issue had been reflux. Review of Systems General: Denies: Chills, Fever, Sweats Eyes: Denies: Visual changes - bilaterally, Diplopia ENT: Reports: - - Left upper dental pain, left-sided facial swelling. Denies: Bilateral ear pain, Rhinorrhea, Sore throat Cardiovascular: Denies: Chest pain, Palpitations Respiratory: Denies: Dyspnea, Cough, Dyspnea on exertion Gastrointestinal: Denies: Abdominal pain, Nausea, Vomiting, Diarrhea, Melena, Hematochezia Genitourinary: Denies: Dysuria, Hematuria, Frequency Musculoskeletal: Denies: Back pain, Extremity Pain Skin: Denies: Rash, Wounds Neurological: Denies: Headache, Weakness, Numbness Physical Exam Vital Signs/Narrative: Vital Signs Temp Pulse Resp BP Pulse Ox 06/18/20 07:17 97.3 F L 119 H 14 152/90 H 94 Inital Vital Signs reviewed: Yes General: Well nourished, Well developed, Obese Head: Normocephalic, Atraumatic ENT: Moist mucous membranes, No rhinorrhea, Sinus tenderness - Left frontal, TM's clear, - - Asymmetric swelling noticed on the left side of the hard palate. Patient is a cracked first molar. Soft tissue swelling and erythema noted of the left cheek. Normal left ear canal.. Negative for: TM erythema left, TM erythema right Mouth/Throat: Normal inspection lips/gums, Normal oral mucosa Neck: Supple, No lymphadenopathy, Nontender, No JVD Cardiovascular: Regular rhythm, No murmurs, Tachycardia Respiratory: No distress, CTA bilaterally, Chest nontender Abdomen: Soft, Nontender, Nondistended, Normal bowel sounds Back: Nontender, Normal Inspection Extremities: Nontender, No edema Skin: Normal color, No rash Neurological: Alert, Oriented x3, Cranial nerves II-XII grossly intact, Normal Strength, Normal Sensation Psychological: Normal affect Diagnostic/Tx/Re-eval Clinical Impression(s) from Imaging Studies Facial/Sinus 06/18/20 07:34 IMPRESSION: Nodular mucosal thickening along the anterior and lateral castellanos of the left maxillary sinus. Focal subcutaneous soft tissue swelling overlying the maxilla worse on the left side with a focal hypodensity measuring 1.4 cm x 0.8 cm suggestive of a small abscess collection. Electronically Signed: Kashmir Good MD at 8:54 EDT , Service support , Laboratory Data 06/18/20 06/18/20 06/18/20 07:50 07:50 07:50 WBC 15.1 H RBC 4.93 Hgb 14.6 Hct 44.2 MCV 89.7 MCH 29.6 MCHC 33.0 RDW Std Deviation 43.8 RDW Coeff of Zeny 13.5 Plt Count 266 MPV 10.6 Immature Gran % (Auto) 0.600 Neut % (Auto) 70.2 H Lymph % (Auto) 19.1 [place] % (Auto) 9.3 Eos % (Auto) 0.5 Baso % (Auto) 0.3 Absolute Neuts (auto) 10.6 H Absolute Lymphs (auto) 2.89 Nucleated RBC % 0 Sodium 133 L Potassium 3.4 L Chloride 93 L Carbon Dioxide 32.0 Anion Gap 8 BUN 8 Creatinine 0.57 Estim Creat Clear Calc 97.02 Est GFR (MDRD) Af Amer 149 Est GFR (MDRD) Non-Af 123 BUN/Creatinine Ratio 14.0 Glucose 306 H Lactic Acid 1.8 Calcium 8.9 - Medical Decision Making Patient is evaluated for left-sided facial swelling and pain. Patient cracked her tooth yesterday. She does have a history of facial cellulitis and abscess requiring admission 2 years ago. This presentation is quite similar per the patient. Patient given IV morphine as well as IV fluids with minimal relief of her symptoms. She is then given a dose of IV Dilaudid and IV clindamycin. Patient does meet criteria for sepsis but her lactate is normal so she does not meet criteria for severe sepsis or septic shock. She has no findings consistent with endorgan damage. Patient is hyperglycemic which does increase her risk of having complicated infection. She does not meet criteria for HHK or DKA. Patient is a normal anion gap. She will be admitted for IV antibiotics. Case is discussed with ENT on-call, Dr. Ireland, who cannot offer definitive management for her dental decay but is agreeable for admission to our facility and can monitor her abscess as needed. Patient is admitted to the hospital service. Patient is hemodynamically stable in the emergency room and stable for the general medical floor at time of disposition. ED Disposition - Plan for ED Patient: Disposition: Acute Care Hospital [facility] Diagnosis: Facial cellulitis, Dentalgia, Abscess of maxilla Referrals: Nevaeh Oconnor MD [Primary Care Provider] -
[2020-06-18] MEDS: 0.9% Normal Saline 1,000 ML 1000 ML IV (08:00)
[2020-06-18] MEDS: Morphine 4 MG/ML Syringe IV ×3 (08:00→21:32)
[2020-06-18 08:10] LABS: Absolute Lymphocyte Count 2.89 X10^3/uL (0.83-4.51); Absolute Neutrophil Count 10.6 X10^3/uL (2.0-7.7); Basophil# 0.04 X10^3/uL; Basophil% 0.3 % (0-1); Eosinophil# 0.07 X10^3/uL; Eosinophils% 0.5 % (0-5); Hematocrit 44.2 % (37-47); Hemoglobin 14.6 g/dL (12.0-15.0); Lymphocyte # 2.89 X10^3/ul (4.0); Lymphocyte % 19.1 % (19-41); Mean Corpuscular Hgb 29.6 pg (27.0-32.0); Mean Corpuscular Volume 89.7 fL (81-99); Mean Platelet Vol. 10.6 fl (6.2-12.0); Monocyte# 1.41 X10^3/uL; Monocyte% 9.3 % (0-10); NRBC Flagged by Analyzer 0 % (0-5); Neutrophil % 70.2 % (47-70); Platelet Count 266 K/mm3 (150-450); RBC Distribution Width CV 13.5 % (11.6-14.6); RBC Distribution Width SD 43.8 fl (35.1-43.9); Red Blood Count 4.93 M/mm3 (4.2-5.4); White Blood Count 15.1 K/mm3 (4.4-11.0)
[2020-06-18 08:21] LABS: Anion Gap 8 (5-15); BUN 8 mg/dL (7-18); Calcium,Total 8.9 mg/dL (8.5-10.1); Chloride 93 mmol/L (98-107); Creatinine, Serum 0.57 mg/dL (0.55-1.02); EST Glomerular Filtration Rate 123 mL/min (>60); Est Glom Filt Rate - Afr Amer 149 mL/min (>60); Estimated Creatinine Clearance 97.02 ml/min; Glucose 306 mg/dL (74-106); Potassium 3.4 mmol/L (3.5-5.1); Sodium Level 133 mmol/L (136-145)
[2020-06-18 08:25] LABS: Lactic Acid 1.8 mmol/L (0.4-1.9)
[2020-06-18] MEDS: HYDROmorphone 1 MG/ML Syringe IV (09:08)
--- NOTE | 2020-06-18 09:51 | NURSING ---
MED SURG KORAM FACIAL CELLULITIS, SEPSIS
[2020-06-18] MEDS: Ketorolac 15 MG/ML Vial IV (10:25)
[2020-06-18] MEDS: 0.9% Normal Saline 1,000 ML 75 ML IV (12:27)
[2020-06-18] MEDS: 0.9% Saline Lock 10 ML Syringe IV ×3 (12:27→21:32)
[2020-06-18] MEDS: Gabapentin 800 MG Tablet PO ×2 (13:34→21:36)
--- NOTE | 2020-06-18 14:14 | HP.PCM_ITS ---
History of Present Illness Date of Admission: 06/18/20 Chief Complaint: left jaw and left face swelling The patient is a 44 year old F with a past medical history as outlined was admitted through the ED on 06/18/2020 with a complaint of left jaw pain and left facial swelling. Patient states she cracked a tooth on the day prior to admission and came into the ED with resultant pain. She was placed on antibiotics and sent home with pain meds. However on waking up in the morning of admission, she had worsening pain in the left upper jaw as well as swelling on the left side of her face. She denied any difficulty breathing when I reviewed her, she says she did not really have a difficult time swallowing t ted it is documented in the ED physicians note that she felt like there was a blister on the top of her mouth and was given a hard time swallowing. She denied any ear pain and denied any fever or chills. Review of systems otherwise negative. Vitals in the ED showed temperature of 98.7 Fahrenheit with blood pressure of 123/73, pulse rate of 119 and respiratory of 18. She was saturating at 93% on room air. Chemistry showed sodium of 133 and potassium of 3.4 with chloride of 93 and anion gap of 8. CBC showed WBC of 15.1. Facial and sinus CT showed nodular mucosal thickening along the anterior and lateral castellanos of the left maxillary sinus with focal subcutaneous soft tissue swelling overlying the maxilla worse on the left side with a focal hypodensity measuring 1.4 cm x 0.8 cm suggestive of a small abscess collection. She has been admitted to be for facial cellulitis. [] Past Medical History Past Medical History (Chronic Problems): Chronic Problems (Last Reviewed 05/23/20 @ 08:25 by Lizbeth Colindres) History of implantable cardiac defibrillator (ICD) (Chronic 11/15/19) Cardiomyopathy, dilated, nonischemic (Chronic) Tachycardia (Chronic) Essential hypertension (Chronic) Hyperlipidemia (Chronic) Morbid obesity due to excess calories (Chronic) Anxiety and depression (Chronic) Type 2 diabetes mellitus (Chronic) ANA on CPAP (Chronic) Lupus (Chronic) Medical History: Medical History (Last Reviewed 05/23/20 @ 08:25 by Lizbeth Colindres) Cardiomyopathy, dilated, nonischemic (Chronic) I42.0 Tachycardia (Chronic) R00.0 Essential hypertension (Chronic) I10 Hyperlipidemia (Chronic) E78.5 Morbid obesity due to excess calories (Chronic) E66.01 Anxiety and depression (Chronic) F41.9, F32.9 Type 2 diabetes mellitus (Chronic) E11.9 ANA on CPAP (Chronic) G47.33, Z99.89 Lupus (Chronic) M32.9 Abdominal panniculus, symptomatic E65 Arthritis M19.90 Chronic systolic (congestive) heart failure I50.22 Diverticulitis K57.92 History of MRSA infection Z86.14 IBS (irritable bowel syndrome) K58.9 Insomnia G47.00 Migraines G43.909 Neuropathy G62.9 Neuropathy G62.9 ANA (obstructive sleep apnea) G47.33 Obesity E66.9 Type 2 diabetes mellitus without complication E11.9 Nonhealing surgical wound T81.89XA Open wound of abdominal wall with complication S31.109A diabetic abscess wound right lower abdominal wall Open wound of neck with complication S11.90XA diabetic abscess wound right posterior neck diabetic abscess wound left posterior neck Allergies pregabalin [From Lyrica] Allergy (Verified 06/18/20 07:20) Other SI sulfamethoxazole [From Bactrim] Allergy (Verified 06/18/20 07:20) Rash tramadol HCl [From Ultram] Allergy (Verified 06/18/20 07:20) Swelling trimethoprim [From Bactrim] Allergy (Verified 06/18/20 07:20) Rash vancomycin Allergy (Verified 06/18/20 07:20) Swelling Home Medications: Ambulatory Orders Medication Instructions Recorded Multivit-Min/Iron/Folic/Lutein 1 tab PO DAILY 05/30/19 [Centrum Silver Women Tablet] Handicap Placard See Rx Instructions .ROUTE 06/06/19 .MEDSUPPLY #1 ea albuterol sulfate 2.5 mg INHALATION Q4H PRN #90 ml 06/06/19 hydrocortisone 2.5 % topical cream 1 applic TOPICAL BID PRN #28 g 09/11/19 albuterol sulfate 90 mcg/actuation 1 - 2 puff INHALATION Q6H PRN #8.5 05/06/20 aerosol inhaler g aspirin 81 mg tablet,delayed 81 mg PO DAILY@0800 #90 tab 05/06/20 release cholecalciferol (vitamin D3) 50 2,000 unit PO DAILY #90 cap 05/06/20 mcg (2,000 unit) capsule gabapentin 800 mg tablet 800 mg PO TID #270 tab 05/06/20 melatonin 10 mg tablet 10 mg PO QHS #30 tab 05/06/20 simvastatin 20 mg tablet 20 mg PO QHS #90 tab 05/06/20 furosemide 40 mg tablet 40 mg PO BID tab 05/23/20 Hydrocodone Bitart/Apap 5-325 1 tablet PO Q4H PRN PRN 2 Days #10 06/17/20 [[place] 5MG-325MG] tab Amitriptyline HCl 25 mg PO QHS 06/18/20 Amoxicillin 500 mg PO TID 06/18/20 Carvedilol 37.5 mg PO BID 06/18/20 Digoxin 125 mcg PO DAILY 06/18/20 Diltiazem HCl [Cardizem Cd] 120 mg PO BID 06/18/20 Dulaglutide [Trulicity] 1.5 mg SC QWEEK 06/18/20 Duloxetine HCl 60 mg PO BID 06/18/20 Insulin Glargine [Lantus Solostar 45 unit SC QPM 06/18/20 U-100 Insulin] Ketoconazole 1 applic TOPICAL 2XW 06/18/20 Lisinopril 2.5 mg PO DAILY 06/18/20 Magnesium See Rx Instructions PO DAILY 06/18/20 Mecobalamin [B12 Active] 1,000 mcg PO DAILY 06/18/20 Metformin HCl 850 mg PO BID 06/18/20 Omeprazole 40 mg PO DAILY 06/18/20 Potassium Chloride Oral Tablet 40 meq PO BID 06/18/20 [K-Dur] Surgical History: Surgical History (Last Reviewed 05/23/20 @ 08:25 by Lizbeth Colindres) History of implantable cardiac defibrillator (ICD) (Chronic) Onset Date: 11/15/19 Z95.810 History of cholecystectomy Z90.49 History of hysterectomy Z90.710 History of left heart catheterization Onset Date: 06/01/19 Z98.890 History of neck surgery Z98.890 navel removal Surgical History: - - Multiple I&D secondary to abscesses including bilateral axilla hidradenitis interventions with resections, cholecystectomy, total hysterectomy, D&C x2 secondary to miscarriages x2. Psychiatric History: Anxiety, Depression [employer] History: - - History of miscarriage with D&C required x2. Smoking Status: Never smoker - *Family History Maternal Family History: Family History (Last Reviewed 05/23/20 @ 08:25 by Lizbeth Colindres) Other Arthritis CVA (cerebral vascular accident) Depression Diabetes Heart disease Hyperlipemia Hypertension Kidney disease Thyroid disorder History Items: - - Patient notes a maternal family history of brain cancer. Paternal Family History: Family History (Last Reviewed 05/23/20 @ 08:25 by Lizbeth Colindres) Other Arthritis CVA (cerebral vascular accident) Depression Diabetes Heart disease Hyperlipemia Hypertension Kidney disease Thyroid disorder History Items: - - Patient notes her father was very healthy only medical issue had been reflux. Review of Systems Constitutional: Denies: Chills, Fever, Malaise, Weakness, Weight Change HEENT: Reports: - - swelling of left side of face; poor dentition. Denies: Head Aches, Sinus Congestion, Sinus Drainage Cardiovascular: Denies: Chest Pain, Chest Pressure, Chest Tightness, Palpitations Respiratory: Denies: Cough, Shortness of Breath, Shortness of breath at rest, Sputum production Gastrointestinal: Denies: Abdominal Pain, Nausea, Vomiting Genitourinary: Denies: Dysuria Musculoskeletal: Denies: Hand Pain, Joint Pain, Joint Tenderness Skin: Denies: Rash, Wounds Neurological: Denies: Numbness, Tingling, Focal weakness Psychiatric: Denies: Anxiety, Depression, Homicidal Ideations, Suicidal Ideations Hematologic/ Lymphatic: Denies: Easy Bruising, Easy Bleeding VTE Information - Inpt Only VTE Present on Admission: No VTE Pharm Prophylaxis ordered?: Yes Patient Problems: Active and Suspected Problems (Last Reviewed 05/23/20 @ 08:25 by Lizbeth Colindres) Facial cellulitis (Acute) Dentalgia (Acute) Abscess of maxilla (Acute) - Physical Exam Vitals/I&O's: Vital Signs Temp Pulse Resp BP Pulse Ox 98.7 F 109 H 18 123/73 H 93 06/18/20 10:45 06/18/20 10:45 06/18/20 10:45 06/18/20 10:45 06/18/20 10:45 Oxygen Delivery Method Room Air Weight: 213 lb Body Mass Index (BMI) 40.2 Finger Stick Blood Glucose 197 Intake and Output for Last 24 Hours 06/16/20 06/17/20 06/18/20 23:59 23:59 23:59 Intake Total 1054 / 1054 Balance 1054 / 1054 General: Alert, Oriented x3, Cooperative HEENT: - - swelling, tenderness, erythema and differential warmth of the left side of her face. poor dentition. Oral: Dry Mucosa Neck: Supple, No JVD, Negative Carotid Bruits Lungs: Clear to auscultation, Normal air movement Cardiovascular: Regular rate, Regular Rhythm, Normal S1, Normal S2, No murmurs Abdomen: Bowel Sounds Present, Soft, Non Tender Extremities: No clubbing, No cyanosis, No edema, Capillary Refill Less than 3 Seconds Skin: No rashes, No breakdown Musculoskeletal: No Tenderness to Palpation of Joints or Extremities Lymphatic: No Cervical, Supraclavicular, or Inguinal Adenopathy Neurological: Cranial nerves II-XII grossly intact, Neuro grossly intact, Motor Exam 5/5 strength throughout Psych/Mental Status: Normal Affect, Appropriate, Alert and oriented to time, place, person, mood and affect Laboratory Results 06/18/20 07:50: WBC 15.1 H, RBC 4.93, Hgb 14.6, Hct 44.2, MCV 89.7, MCH 29.6, MCHC 33.0, RDW Std Deviation 43.8, RDW Coeff of Zeny 13.5, Plt Count 266, MPV 10.6, Immature Gran % (Auto) 0.600, Neut % (Auto) 70.2 H, Lymph % (Auto) 19.1, [place] % (Auto) 9.3, Eos % (Auto) 0.5, Baso % (Auto) 0.3, Absolute Neuts (auto) 10.6 H, Absolute Lymphs (auto) 2.89, Nucleated RBC % 0 06/18/20 07:50: Sodium 133 L, Potassium 3.4 L, Chloride 93 L, Carbon Dioxide 32.0, Anion Gap 8, BUN 8, Creatinine 0.57, Estim Creat Clear Calc 97.02, Est GFR (MDRD) Af Amer 149, Est GFR (MDRD) Non-Af 123, BUN/Creatinine Ratio 14.0, Glucose 306 H, Calcium 8.9 06/18/20 07:50: Lactic Acid 1.8 Diagnostic Data Facial/Sinus 06/18/20 07:34 IMPRESSION: Nodular mucosal thickening along the anterior and lateral castellanos of the left maxillary sinus. Focal subcutaneous soft tissue swelling overlying the maxilla worse on the left side with a focal hypodensity measuring 1.4 cm x 0.8 cm suggestive of a small abscess collection. Electronically Signed: Kashmir Good MD at 8:54 EDT , Service support , Current Medications Acetaminophen (Acetaminophen 325 Mg Tablet) 650 mg PO Q6H PRN PRN PRN Reason: Pain Score 1-10/Temp > 100.7 F Albuterol Sulfate (Albuterol 2.5 Mg/3 Ml Vial.Neb.) 2.5 mg INHALATION Q4H PRN PRN Reason: shortness of breath or wheezing Amitriptyline HCl (Amitriptyline 25 Mg Tablet) 25 mg PO QHS [facility] Aspirin (Aspirin E.C. 81 Mg Tablet) 81 mg PO DAILY@0800 [facility] Atorvastatin Calcium (Atorvastatin Calcium 10 Mg Tablet) 10 mg PO QHS [facility] Carvedilol (Carvedilol 25 Mg Tablet) [facility] Cholecalciferol (Cholecalciferol (Vit D3) 25 Mcg Tablet (1,000 Units)) 50 mcg PO DAILY [facility] Digoxin (Digoxin 125 Mcg Tablet) 125 mcg PO DAILY [facility] Diltiazem HCl (Diltiazem Cd 120 Mg Capsule) 120 mg PO BID [facility] Enoxaparin Sodium (Enoxaparin 40 Mg/0.4 Ml Syringe) 40 mg SC DAILY [facility] Furosemide (Furosemide 40 Mg Tablet) 40 mg PO BID [facility] Gabapentin (Gabapentin 800 Mg Tablet) 800 mg PO TID [facility] Last Admin: 06/18/20 13:34 Dose: 800 mg Documented by: Sodium Chloride () 250 mls @ 15 mls/hr IV .[id number] PRN PRN Reason: Saline Flush Sodium Chloride () 250 mls @ 15 mls/hr IV .[id number] PRN PRN Reason: Additional IVPB Infusion Sodium Chloride () 1,000 mls @ 75 mls/hr IV .[id number] [facility] Stop: 06/19/20 01:34 Last Admin: 06/18/20 12:27 Dose: 75 mls/hr Documented by: Piperacillin Sod/Tazobactam (Sod 3.375 gm/ Sodium Chloride) 50 mls @ 12.5 mls/hr IV Q8 [facility] Last Admin: 06/18/20 13:32 Dose: 12.5 mls/hr Documented by: Influenza Virus Vaccine Quadrival (Influenza Vaccine (6mos+)/Pf 0.5 Ml Syringe) 0.5 ml IM .ONCE ONE Stop: 06/19/20 10:01 Insulin Glargine (Insulin Glargine 100 Units/Ml Pen) 45 units SC QPM [facility] Lisinopril (Lisinopril 2.5 Mg Tablet) 2.5 mg PO DAILY [facility] Magnesium Chloride (Magnesium Chloride 64 Mg Delay Rel.Tablet) 128 mg PO DAILY [facility] Melatonin (Melatonin 10 Mg Tablet) 10 mg PO QHS [facility] Morphine Sulfate (Morphine 4 Mg/Ml Syringe) 4 mg IV Q3H PRN PRN PRN Reason: Pain Score 6-10 Multivitamins/Minerals (Multivitamins,Ther W-Minerals Tablet) [facility] Non-Formulary Medication (Dulaglutide [Trulicity]) 1.5 mg SC QWEEK [facility] Ondansetron HCl (Ondansetron 4 Mg/2 Ml Vial) 4 mg IV Q8H PRN PRN PRN Reason: NAUSEA/VOMITING Oxycodone HCl (Oxycodone 5 Mg Tablet) 5 mg PO Q4H PRN PRN PRN Reason: Pain Score 4-5 Pantoprazole Sodium (Pantoprazole Sodium 40 Mg Tablet) 40 mg PO DAILY [facility] Potassium Chloride (Potassium Chloride Oral Tablet 20 Meq) 40 meq PO BID [facility] Sodium Chloride (0.9% Saline Lock 10 Ml Syringe) 10 - 40 ml IV UD PRN PRN Reason: SALINE FLUSH Last Admin: 06/18/20 12:27 Dose: 10 ml Documented by: Assessment/Plan All Active Problems (Last Reviewed 05/23/20 @ 08:25 by Lizbeth Colindres) Facial cellulitis (Acute) Dentalgia (Acute) Abscess of maxilla (Acute) ICD (implantable cardioverter-defibrillator) discharge (Acute 04/28/20) Bronchitis with bronchospasm (Resolved) Hypoxia (Resolved) 44 y/o female admitted with a complaint of left face swelling and pain #Cellulitis of the left side of her face, with abscess formation * admit to med surg * start on IV zosyn * get blood cultures * resuscitate with IVF * clear liquid diet for now * consult maxillofacial surgery * PO tylenol, oxycodone and morphine. #Type 2 diabetes mellitus * resume home insulin dose. ISS. Accuchecks ACHS #Nonischemic cardiomyopathy * on carvedilol, lasix, and lisinopril * #Chronic heart failure with reduced ejection fraction * recently had a pacemaker/ICD inserted * not in exacerbation. #ANA: on CPAP #Hyperlipidemia: on statin. #Hypertension: on lisinopril and cardizem as well as metoprolol. #Afib: on digoxin and cardizem. DVT prophyaxis: lovenox COde status: full code * Patient counseled extensively about different types of CODE STATUS including full code, DNR CCA and DNR CCA. Patient elects to be full code. * Total [id number] time 17 minutes. Inpatient E&M: 61288 Init Hosp L3 Procedures: 41616 Advncd Care Plan 30 Min
[2020-06-18] MEDS: Acetaminophen 325 MG Tablet 650 MG PO (16:00)
[2020-06-18] MEDS: oxyCODONE 5 MG Tablet PO (16:01)
[2020-06-18] MEDS: Carvedilol 25 MG Tablet 37.5 MG PO (16:40)
[2020-06-18 16:45] LABS: Bedside Glucose 298 mg/dL (70-110)
[2020-06-18] MEDS: Insulin Lispro 100 UNIT/ML INSULN.PEN SC ×2 (16:50→21:48)
[2020-06-18] MEDS: Ondansetron 4 MG/2 ML Vial IV (21:33)
[2020-06-18] MEDS: Furosemide 40 MG Tablet PO (21:34)
[2020-06-18] MEDS: Atorvastatin Calcium 10 MG Tablet PO (21:36)
[2020-06-18] MEDS: dilTIAZem CD 120 MG Capsule PO (21:36)
[2020-06-18] MEDS: MELATONIN 10 MG TABLET PO (21:36)
[2020-06-18] MEDS: Amitriptyline 25 MG Tablet PO (21:36)
[2020-06-18 22:55] LABS: Bedside Glucose 253 mg/dL (70-110)
[2020-06-19] VITALS (7 sets, daily range): BP systolic 99–138; BP diastolic 58–82; PULSE 83–104; RESP 16–18; TEMP 36.7–37.2; O2SAT 90–96
[2020-06-19] MEDS: oxyCODONE 5 MG Tablet PO ×2 (00:14→06:53)
[2020-06-19] MEDS: Acetaminophen 325 MG Tablet 650 MG PO ×2 (00:14→06:53)
[2020-06-19] MEDS: Gabapentin 800 MG Tablet PO ×3 (05:24→21:27)
[2020-06-19 06:50] LABS: Absolute Lymphocyte Count 2.07 X10^3/uL (0.83-4.51); Basophil# 0.03 X10^3/uL; Basophil% 0.3 % (0-1); Eosinophils% 1.1 % (0-5); Hematocrit 44.7 % (37-47); Hemoglobin 14.2 g/dL (12.0-15.0); Lymphocyte # 2.07 X10^3/ul (4.0); Mean Corp Hgb Conc 31.8 g/dL (32-36); Mean Corpuscular Volume 91.4 fL (81-99); Mean Platelet Vol. 10.2 fl (6.2-12.0); Monocyte# 0.79 X10^3/uL; Monocyte% 8.8 % (0-10); NRBC Flagged by Analyzer 0 % (0-5); Neutrophil # 5.95 X10^3/uL (2.7-7.7); Neutrophil % 66.2 % (47-70); Platelet Count 257 K/mm3 (150-450); RBC Distribution Width CV 13.3 % (11.6-14.6); RBC Distribution Width SD 45.1 fl (35.1-43.9); Red Blood Count 4.89 M/mm3 (4.2-5.4)
[2020-06-19] MEDS: Insulin Lispro 100 UNIT/ML INSULN.PEN SC ×4 (06:54→21:32)
[2020-06-19 07:01] LABS: Bedside Glucose 232 mg/dL (70-110)
[2020-06-19 07:15] LABS: Anion Gap 6 (5-15); BUN 7 mg/dL (7-18); BUN/Creat Ratio 13.6 RATIO (10-20); Calcium,Total 8.7 mg/dL (8.5-10.1); Chloride 93 mmol/L (98-107); Creatinine, Serum 0.52 mg/dL (0.55-1.02); EST Glomerular Filtration Rate 139 mL/min (>60); Est Glom Filt Rate - Afr Amer 168 mL/min (>60); Estimated Creatinine Clearance 106.35 ml/min; Glucose 253 mg/dL (74-106); Sodium Level 135 mmol/L (136-145)
[2020-06-19] MEDS: 0.9% Saline Lock 10 ML Syringe IV ×4 (08:41→21:56)
[2020-06-19] MEDS: Aspirin E.C. 81 MG Tablet PO (08:41)
[2020-06-19] MEDS: Carvedilol 25 MG Tablet 37.5 MG PO ×2 (08:41→17:02)
[2020-06-19] MEDS: Morphine 4 MG/ML Syringe IV ×3 (08:41→21:56)
[2020-06-19] MEDS: dilTIAZem CD 120 MG Capsule PO ×2 (08:42→21:28)
[2020-06-19] MEDS: Multivitamins,Ther W-Minerals Tablet 1 TABLET PO (08:42)
[2020-06-19] MEDS: Potassium Chloride Oral Tablet 20 MEQ 40 MEQ PO ×2 (08:42→21:29)
[2020-06-19] MEDS: Furosemide 40 MG Tablet PO ×2 (08:43→21:28)
[2020-06-19] MEDS: Digoxin 125 MCG Tablet PO (08:43)
[2020-06-19] MEDS: Pantoprazole Sodium 40 MG Tablet PO (08:43)
[2020-06-19] MEDS: Magnesium Chloride 64 MG Delay Rel.Tablet 128 MG PO (08:43)
[2020-06-19] MEDS: Cholecalciferol (VIT D3) 25 MCG TABLET (1,000 UNITS) 50 MCG PO (08:43)
[2020-06-19] MEDS: Lisinopril 2.5 MG Tablet PO (08:43)
[2020-06-19] MEDS: Enoxaparin 40 MG/0.4 ML Syringe SC (08:44)
[2020-06-19 11:21] LABS: Bedside Glucose 264 mg/dL (70-110)
--- NOTE | 2020-06-19 14:38 | CASEMGMT ---
TASNEEM DUARTE assessment: Face to Face with patient for initial transition planning/care coordination assessment. TASNEEM DUARTE introduced self and role at [facility], pt voices understanding and consents to assessment. Pt is lying in bed in no distress. Pt is A/Ox4 and answers all questions appropriately. Care providers, pharmacy, and demographics verified/updated. Presentation: Pt seen yesterday for broken tooth and d/c'd w/ antibx/norco. Today left face is swollen and pt states there is a 'pocket' in her mouth making it hard to breathe out of the left side of her nose Admitting dx: Facial swelling PCP: Anastasia Specialists: Anahy cardio Preferred Pharmacy: [facility] Insurance: MMO Prescription Benefit: MMO Living Will/HPOA: Pt has LW/HPOA and is aware that they are on file at [facility]. Pt states her , Chacho Degroot, is HPOA. LNOK: Chacho Degroot, ; August Degroot, son Living Arrangements: Pt states lives with family in mobile home with ramp and states no concerns at home. Pt states is independent with ADL's. Transportation: Pt states drives self and states no transportation concerns. DME/HHC: Pt states has the following DME: cane, walker, grab bars, shower chair, cpap, and home oxygen prn thru [employer]. Pt states no need for any further DME. Pt states has had [facility] HHC in the past but has not been to SNF in the past. Pt states no concerns with going home at time of discharge. Pt states is unemployed. Pt states does not smoke cigarettes or drink ETOH. Pt states no further concerns/needs. CM to follow for any further discharge planning/needs. Advised pt to ask for CM if any further questions/concerns/needs arise, voices understanding. Pt Goal: Home [place] TASNEEM DUARTE
--- NOTE | 2020-06-19 15:04 | CASEMGMT ---
N CM NOTE: [facility] Palliative screening completed and pt does not meet criteria at this time. Sonu GUTIÉRREZN RN CM
--- NOTE | 2020-06-19 15:27 | CON.PCM_ITS ---
Reason for Consult History of Present Illness: The patient is a 44 year old Female admitted for dental abscess now generalized facial cellulitis. Began 2 days ago when a tooth broke. Past Medical History Past Medical History (Chronic Problems): Chronic Problems (Last Reviewed 05/23/20 @ 08:25 by Lizbteh Colindres) History of implantable cardiac defibrillator (ICD) (Chronic 11/15/19) Cardiomyopathy, dilated, nonischemic (Chronic) Tachycardia (Chronic) Essential hypertension (Chronic) Hyperlipidemia (Chronic) Morbid obesity due to excess calories (Chronic) Anxiety and depression (Chronic) Type 2 diabetes mellitus (Chronic) ANA on CPAP (Chronic) Lupus (Chronic) Medical History: Medical History (Last Reviewed 05/23/20 @ 08:25 by Lizbeth Colindres) Cardiomyopathy, dilated, nonischemic (Chronic) I42.0 Tachycardia (Chronic) R00.0 Essential hypertension (Chronic) I10 Hyperlipidemia (Chronic) E78.5 Morbid obesity due to excess calories (Chronic) E66.01 Anxiety and depression (Chronic) F41.9, F32.9 Type 2 diabetes mellitus (Chronic) E11.9 ANA on CPAP (Chronic) G47.33, Z99.89 Lupus (Chronic) M32.9 Abdominal panniculus, symptomatic E65 Arthritis M19.90 Chronic systolic (congestive) heart failure I50.22 Diverticulitis K57.92 History of MRSA infection Z86.14 IBS (irritable bowel syndrome) K58.9 Insomnia G47.00 Migraines G43.909 Neuropathy G62.9 Neuropathy G62.9 ANA (obstructive sleep apnea) G47.33 Obesity E66.9 Type 2 diabetes mellitus without complication E11.9 Nonhealing surgical wound T81.89XA Open wound of abdominal wall with complication S31.109A diabetic abscess wound right lower abdominal wall Open wound of neck with complication S11.90XA diabetic abscess wound right posterior neck diabetic abscess wound left posterior neck Allergies pregabalin [From Lyrica] Allergy (Verified 06/18/20 07:20) Other SI sulfamethoxazole [From Bactrim] Allergy (Verified 06/18/20 07:20) Rash tramadol HCl [From Ultram] Allergy (Verified 06/18/20 07:20) Swelling trimethoprim [From Bactrim] Allergy (Verified 06/18/20 07:20) Rash vancomycin Allergy (Verified 06/18/20 07:20) Swelling Home Medications: Ambulatory Orders Medication Instructions Recorded Multivit-Min/Iron/Folic/Lutein 1 tab PO DAILY 05/30/19 [Centrum Silver Women Tablet] Handicap Placard See Rx Instructions .ROUTE 06/06/19 .MEDSUPPLY #1 ea albuterol sulfate 2.5 mg INHALATION Q4H PRN #90 ml 06/06/19 hydrocortisone 2.5 % topical cream 1 applic TOPICAL BID PRN #28 g 09/11/19 albuterol sulfate 90 mcg/actuation 1 - 2 puff INHALATION Q6H PRN #8.5 05/06/20 aerosol inhaler g aspirin 81 mg tablet,delayed 81 mg PO DAILY@0800 #90 tab 05/06/20 release cholecalciferol (vitamin D3) 50 2,000 unit PO DAILY #90 cap 05/06/20 mcg (2,000 unit) capsule gabapentin 800 mg tablet 800 mg PO TID #270 tab 05/06/20 melatonin 10 mg tablet 10 mg PO QHS #30 tab 05/06/20 furosemide 40 mg tablet 40 mg PO BID tab 05/23/20 Hydrocodone Bitart/Apap 5-325 1 tablet PO Q4H PRN PRN 2 Days #10 06/17/20 [[place] 5MG-325MG] tab Amitriptyline HCl 25 mg PO QHS 06/18/20 Amoxicillin 500 mg PO TID 06/18/20 Carvedilol 37.5 mg PO BID 06/18/20 Digoxin 125 mcg PO DAILY 06/18/20 Diltiazem HCl [Cardizem Cd] 120 mg PO BID 06/18/20 Dulaglutide [Trulicity] 1.5 mg SC QWEEK 06/18/20 Duloxetine HCl 60 mg PO BID 06/18/20 Insulin Glargine [Lantus Solostar 45 unit SC QPM 06/18/20 U-100 Insulin] Ketoconazole 1 applic TOPICAL 2XW 06/18/20 Lisinopril 2.5 mg PO DAILY 06/18/20 Magnesium See Rx Instructions PO DAILY 06/18/20 Mecobalamin [B12 Active] 1,000 mcg PO DAILY 06/18/20 Metformin HCl 850 mg PO BID 06/18/20 Omeprazole 40 mg PO DAILY 06/18/20 Potassium Chloride Oral Tablet 40 meq PO BID 06/18/20 [K-Dur] rosuvastatin 10 mg tablet 10 mg PO DAILY #90 tablet 06/19/20 Surgical History: Surgical History (Last Reviewed 05/23/20 @ 08:25 by Lizbeth Colindres) History of implantable cardiac defibrillator (ICD) (Chronic) Onset Date: 11/15/19 Z95.810 History of cholecystectomy Z90.49 History of hysterectomy Z90.710 History of left heart catheterization Onset Date: 06/01/19 Z98.890 History of neck surgery Z98.890 navel removal Surgical History: - - Multiple I&D secondary to abscesses including bilateral axilla hidradenitis interventions with resections, cholecystectomy, total hysterectomy, D&C x2 secondary to miscarriages x2. Psychiatric History: Anxiety, Depression [employer] History: - - History of miscarriage with D&C required x2. Smoking Status: Never smoker - *Family History Maternal Family History: Family History (Last Reviewed 05/23/20 @ 08:25 by Lizbeth Colindres) Other Arthritis CVA (cerebral vascular accident) Depression Diabetes Heart disease Hyperlipemia Hypertension Kidney disease Thyroid disorder History Items: - - Patient notes a maternal family history of brain cancer. Paternal Family History: Family History (Last Reviewed 05/23/20 @ 08:25 by Lizbeth Colindres) Other Arthritis CVA (cerebral vascular accident) Depression Diabetes Heart disease Hyperlipemia Hypertension Kidney disease Thyroid disorder History Items: - - Patient notes her father was very healthy only medical issue had been reflux. Patient Problems: Active and Suspected Problems (Last Reviewed 05/23/20 @ 08:25 by Lizbeth Colindres) Facial cellulitis (Acute) Dentalgia (Acute) Abscess of maxilla (Acute) Subjective: Swelling has extended into the hard palate region and also to the buccal aspect or lateral aspect of the right maxillary sinus. She has no airway concerns. This tooth listed as tooth #11 characteristically drains the the lateral and sometimes the palatal. There is no extension to the orbital contents and thus the eye signs are normal. Throat clear and handling secretions well. There is no airway extension of this edema. Objective: Airway clear, no extension to orbital contents. - Physical Exam Vitals/I&O's: Vital Signs Temp Pulse Resp BP Pulse Ox 98.5 F 83 18 101/60 94 06/19/20 14:20 06/19/20 14:20 06/19/20 14:20 06/19/20 14:20 06/19/20 14:20 Oxygen Delivery Method Room Air Weight: 96.615 kg Body Mass Index (BMI) 40.2 Finger Stick Blood Glucose 197 Intake and Output for Last 24 Hours 06/17/20 06/18/20 06/19/20 23:59 23:59 23:59 Intake Total 1704 / 1704 2127.5 / 2127.5 Balance 1704 / 1704 2127.5 / 2127.5 General: Alert, Oriented x3, Cooperative, No apparent distress HEENT: Atraumatic, PERRLA, EOMI, Normocephalic Oral: Moist Mucosa Neck: Supple, No Nodes, Trachea Midline Laboratory Results 06/18/20 16:40: POC Glucose 298 H 06/18/20 21:46: POC Glucose 253 H 06/19/20 06:30: WBC 9.0, RBC 4.89, Hgb 14.2, Hct 44.7, MCV 91.4, MCH 29.0, MCHC 31.8 L, RDW Std Deviation 45.1 H, RDW Coeff of Zeny 13.3, Plt Count 257, MPV 10.2, Immature Gran % (Auto) 0.600, Neut % (Auto) 66.2, Lymph % (Auto) 23.0, [place] % (Auto) 8.8, Eos % (Auto) 1.1, Baso % (Auto) 0.3, Absolute Neuts (auto) 6.0, Absolute Lymphs (auto) 2.07, Nucleated RBC % 0 06/19/20 06:30: Sodium 135 L, Potassium 3.0 L, Chloride 93 L, Carbon Dioxide 36.0 H, Anion Gap 6, BUN 7, Creatinine 0.52 L, Estim Creat Clear Calc 106.35, Est GFR (MDRD) Af Amer 168, Est GFR (MDRD) Non-Af 139, BUN/Creatinine Ratio 13.6, Glucose 253 H, Calcium 8.7 06/19/20 06:52: POC Glucose 232 H 06/19/20 11:07: POC Glucose 264 H Current Medications Acetaminophen (Acetaminophen 325 Mg Tablet) 650 mg PO Q6H PRN PRN PRN Reason: Pain Score 1-10/Temp > 100.7 F Last Admin: 06/19/20 06:53 Dose: 650 mg Documented by: Albuterol Sulfate (Albuterol 2.5 Mg/3 Ml Vial.Neb.) 2.5 mg INHALATION Q4H PRN PRN Reason: shortness of breath or wheezing Amitriptyline HCl (Amitriptyline 25 Mg Tablet) 25 mg PO QHS [facility] Last Admin: 06/18/20 21:36 Dose: 25 mg Documented by: Aspirin (Aspirin E.C. 81 Mg Tablet) 81 mg PO DAILY@0800 [facility] Last Admin: 06/19/20 08:41 Dose: 81 mg Documented by: Atorvastatin Calcium (Atorvastatin Calcium 10 Mg Tablet) 10 mg PO QHS [facility] Last Admin: 06/18/20 21:36 Dose: 10 mg Documented by: Carvedilol (Carvedilol 25 Mg Tablet) 37.5 mg PO BIDCM [facility] Last Admin: 06/19/20 08:41 Dose: 37.5 mg Documented by: Cholecalciferol (Cholecalciferol (Vit D3) 25 Mcg Tablet (1,000 Units)) 50 mcg PO DAILY [facility] Last Admin: 06/19/20 08:43 Dose: 50 mcg Documented by: Dextrose (Dextrose 50%-Water 25 Gm/50 Ml Disp.Syrin) 0 gm IV X1 PRN; Protocol PRN Reason: Hypoglycemia Digoxin (Digoxin 125 Mcg Tablet) 125 mcg PO DAILY [facility] Last Admin: 06/19/20 08:43 Dose: 125 mcg Documented by: Diltiazem HCl (Diltiazem Cd 120 Mg Capsule) 120 mg PO BID [facility] Last Admin: 06/19/20 08:42 Dose: 120 mg Documented by: Enoxaparin Sodium (Enoxaparin 40 Mg/0.4 Ml Syringe) 40 mg SC DAILY [facility] Last Admin: 06/19/20 08:44 Dose: 40 mg Documented by: Furosemide (Furosemide 40 Mg Tablet) 40 mg PO BID [facility] Last Admin: 06/19/20 08:43 Dose: 40 mg Documented by: Gabapentin (Gabapentin 800 Mg Tablet) 800 mg PO TID [facility] Last Admin: 06/19/20 13:49 Dose: 800 mg Documented by: Glucagon (Glucagon 1 Mg/Ml Syringe) 1 mg IM .X1 PRN PRN Reason: Hypoglycemia Sodium Chloride () 250 mls @ 15 mls/hr IV .[id number] PRN PRN Reason: Saline Flush Sodium Chloride () 250 mls @ 15 mls/hr IV .[id number] PRN PRN Reason: Additional IVPB Infusion Piperacillin Sod/Tazobactam (Sod 3.375 gm/ Sodium Chloride) 50 mls @ 12.5 mls/hr IV Q8 [facility] Last Admin: 06/19/20 13:48 Dose: 12.5 mls/hr Documented by: Insulin Glargine (Insulin Glargine 100 Units/Ml Pen) 45 units SC QPM [facility] Last Admin: 06/18/20 21:48 Dose: 45 units Documented by: Insulin Human Lispro (Insulin Lispro 100 Unit/Ml Insuln.Pen) 0 unit SC ACHS [facility]; Protocol Last Admin: 06/19/20 11:08 Dose: 6 units Documented by: Lisinopril (Lisinopril 2.5 Mg Tablet) 2.5 mg PO DAILY [facility] Last Admin: 06/19/20 08:43 Dose: 2.5 mg Documented by: Magnesium Chloride (Magnesium Chloride 64 Mg Delay Rel.Tablet) 128 mg PO DAILY [facility] Last Admin: 06/19/20 08:43 Dose: 128 mg Documented by: Melatonin (Melatonin 10 Mg Tablet) 10 mg PO QHS [facility] Last Admin: 06/18/20 21:36 Dose: 10 mg Documented by: Morphine Sulfate (Morphine 4 Mg/Ml Syringe) 4 mg IV Q3H PRN PRN PRN Reason: Pain Score 6-10 Last Admin: 06/19/20 08:41 Dose: 4 mg Documented by: Multivitamins/Minerals (Multivitamins,Ther W-Minerals Tablet) [facility] Last Admin: 06/19/20 08:42 Dose: 1 tablet Documented by: Non-Formulary Medication (Dulaglutide [Trulicity]) 1.5 mg SC QWEEK [facility] Nutritional Formula (Lactose Free) (Ensure Clear 120 Ml Liquid) 120 ml PO 4X/DAY [facility] Last Admin: 06/19/20 13:56 Dose: Not Given Documented by: Ondansetron HCl (Ondansetron 4 Mg/2 Ml Vial) 4 mg IV Q8H PRN PRN PRN Reason: NAUSEA/VOMITING Last Admin: 06/18/20 21:33 Dose: 4 mg Documented by: Oxycodone HCl (Oxycodone 5 Mg Tablet) 5 mg PO Q4H PRN PRN PRN Reason: Pain Score 4-5 Last Admin: 06/19/20 06:53 Dose: 5 mg Documented by: Pantoprazole Sodium (Pantoprazole Sodium 40 Mg Tablet) 40 mg PO DAILY [facility] Last Admin: 06/19/20 08:43 Dose: 40 mg Documented by: Potassium Chloride (Potassium Chloride Oral Tablet 20 Meq) 40 meq PO BID [facility] Last Admin: 06/19/20 08:42 Dose: 40 meq Documented by: Sodium Chloride (0.9% Saline Lock 10 Ml Syringe) 10 - 40 ml IV UD PRN PRN Reason: SALINE FLUSH Last Admin: 06/19/20 08:41 Dose: 10 ml Documented by: Assessment/Plan All Active Problems (Last Reviewed 05/23/20 @ 08:25 by Lizbeth Colindres) Facial cellulitis (Acute) Dentalgia (Acute) Abscess of maxilla (Acute) ICD (implantable cardioverter-defibrillator) discharge (Acute 04/28/20) Bronchitis with bronchospasm (Resolved) Hypoxia (Resolved) Due to the patients many morbidities I suggest continued IV antibiotics. Placing this patient under anesthesia is somewhat of a risk but if no improvement suggest OR for I and D and possibly removal of the offending tooth. Will recommend continued IV fluid and medical management and if no improvement by eat ly AM on 06/20/2020 would put to NPO and then I will take to OR for procedures.
--- NOTE | 2020-06-19 16:03 | PCM.PN.HOSP ---
Patient Problems: Active and Suspected Problems (Last Reviewed 05/23/20 @ 08:25 by Lizbeth Colindres) Facial cellulitis (Acute) Dentalgia (Acute) Abscess of maxilla (Acute) Subjective: Patient seen and examined. She still complains of some pain and swelling on the left side of her face; swelling is much better. She denies fever, chills, shortness of breath, review of systems is otherwise negative. Vitals/I&O's: Vital Signs Temp Pulse Resp BP Pulse Ox 98.5 F 83 18 101/60 94 06/19/20 14:20 06/19/20 14:20 06/19/20 14:20 06/19/20 14:20 06/19/20 14:20 Oxygen Delivery Method Room Air Weight: 212 lb 15.994 oz Body Mass Index (BMI) 40.2 Finger Stick Blood Glucose 197 Intake and Output for Last 24 Hours 06/17/20 06/18/20 06/19/20 23:59 23:59 23:59 Intake Total 1704 / 1704 2127.5 / 2127.5 Balance 1704 / 1704 2127.5 / 2127.5 General: Alert, Oriented x3, Cooperative HEENT: - - swelling, tenderness, erythema and differential warmth of the left side of her face has improved significantly. poor dentition. Oral: Dry Mucosa Neck: Supple, No JVD, Negative Carotid Bruits Lungs: Clear to auscultation, Normal air movement Cardiovascular: Regular rate, Regular Rhythm, Normal S1, Normal S2, No murmurs Abdomen: Bowel Sounds Present, Soft, Non Tender Extremities: No clubbing, No cyanosis, No edema, Capillary Refill Less than 3 Seconds Skin: No rashes, No breakdown Musculoskeletal: No Tenderness to Palpation of Joints or Extremities Lymphatic: No Cervical, Supraclavicular, or Inguinal Adenopathy Neurological: Cranial nerves II-XII grossly intact, Neuro grossly intact, Motor Exam 5/5 strength throughout Psych/Mental Status: Normal Affect, Appropriate, Alert and oriented to time, place, person, mood and affect Laboratory Results 06/18/20 16:40: POC Glucose 298 H 06/18/20 21:46: POC Glucose 253 H 06/19/20 06:30: WBC 9.0, RBC 4.89, Hgb 14.2, Hct 44.7, MCV 91.4, MCH 29.0, MCHC 31.8 L, RDW Std Deviation 45.1 H, RDW Coeff of Zeny 13.3, Plt Count 257, MPV 10.2, Immature Gran % (Auto) 0.600, Neut % (Auto) 66.2, Lymph % (Auto) 23.0, [place] % (Auto) 8.8, Eos % (Auto) 1.1, Baso % (Auto) 0.3, Absolute Neuts (auto) 6.0, Absolute Lymphs (auto) 2.07, Nucleated RBC % 0 06/19/20 06:30: Sodium 135 L, Potassium 3.0 L, Chloride 93 L, Carbon Dioxide 36.0 H, Anion Gap 6, BUN 7, Creatinine 0.52 L, Estim Creat Clear Calc 106.35, Est GFR (MDRD) Af Amer 168, Est GFR (MDRD) Non-Af 139, BUN/Creatinine Ratio 13.6, Glucose 253 H, Calcium 8.7 06/19/20 06:52: POC Glucose 232 H 06/19/20 11:07: POC Glucose 264 H Current Medications Acetaminophen (Acetaminophen 325 Mg Tablet) 650 mg PO Q6H PRN PRN PRN Reason: Pain Score 1-10/Temp > 100.7 F Last Admin: 06/19/20 06:53 Dose: 650 mg Documented by: Albuterol Sulfate (Albuterol 2.5 Mg/3 Ml Vial.Neb.) 2.5 mg INHALATION Q4H PRN PRN Reason: shortness of breath or wheezing Amitriptyline HCl (Amitriptyline 25 Mg Tablet) 25 mg PO QHS [facility] Last Admin: 06/18/20 21:36 Dose: 25 mg Documented by: Aspirin (Aspirin E.C. 81 Mg Tablet) 81 mg PO DAILY@0800 [facility] Last Admin: 06/19/20 08:41 Dose: 81 mg Documented by: Atorvastatin Calcium (Atorvastatin Calcium 10 Mg Tablet) 10 mg PO QHS [facility] Last Admin: 06/18/20 21:36 Dose: 10 mg Documented by: Carvedilol (Carvedilol 25 Mg Tablet) 37.5 mg PO BIDCM [facility] Last Admin: 06/19/20 08:41 Dose: 37.5 mg Documented by: Cholecalciferol (Cholecalciferol (Vit D3) 25 Mcg Tablet (1,000 Units)) 50 mcg PO DAILY [facility] Last Admin: 06/19/20 08:43 Dose: 50 mcg Documented by: Dextrose (Dextrose 50%-Water 25 Gm/50 Ml Disp.Syrin) 0 gm IV X1 PRN; Protocol PRN Reason: Hypoglycemia Digoxin (Digoxin 125 Mcg Tablet) 125 mcg PO DAILY [facility] Last Admin: 06/19/20 08:43 Dose: 125 mcg Documented by: Diltiazem HCl (Diltiazem Cd 120 Mg Capsule) 120 mg PO BID [facility] Last Admin: 06/19/20 08:42 Dose: 120 mg Documented by: Enoxaparin Sodium (Enoxaparin 40 Mg/0.4 Ml Syringe) 40 mg SC DAILY [facility] Last Admin: 06/19/20 08:44 Dose: 40 mg Documented by: Furosemide (Furosemide 40 Mg Tablet) 40 mg PO BID [facility] Last Admin: 06/19/20 08:43 Dose: 40 mg Documented by: Gabapentin (Gabapentin 800 Mg Tablet) 800 mg PO TID [facility] Last Admin: 06/19/20 13:49 Dose: 800 mg Documented by: Glucagon (Glucagon 1 Mg/Ml Syringe) 1 mg IM .X1 PRN PRN Reason: Hypoglycemia Sodium Chloride () 250 mls @ 15 mls/hr IV .[id number] PRN PRN Reason: Saline Flush Sodium Chloride () 250 mls @ 15 mls/hr IV .[id number] PRN PRN Reason: Additional IVPB Infusion Piperacillin Sod/Tazobactam (Sod 3.375 gm/ Sodium Chloride) 50 mls @ 12.5 mls/hr IV Q8 [facility] Last Admin: 06/19/20 13:48 Dose: 12.5 mls/hr Documented by: Insulin Glargine (Insulin Glargine 100 Units/Ml Pen) 45 units SC QPM [facility] Last Admin: 06/18/20 21:48 Dose: 45 units Documented by: Insulin Human Lispro (Insulin Lispro 100 Unit/Ml Insuln.Pen) 0 unit SC ACHS [facility]; Protocol Last Admin: 06/19/20 11:08 Dose: 6 units Documented by: Lisinopril (Lisinopril 2.5 Mg Tablet) 2.5 mg PO DAILY [facility] Last Admin: 06/19/20 08:43 Dose: 2.5 mg Documented by: Magnesium Chloride (Magnesium Chloride 64 Mg Delay Rel.Tablet) 128 mg PO DAILY [facility] Last Admin: 06/19/20 08:43 Dose: 128 mg Documented by: Melatonin (Melatonin 10 Mg Tablet) 10 mg PO QHS [facility] Last Admin: 06/18/20 21:36 Dose: 10 mg Documented by: Morphine Sulfate (Morphine 4 Mg/Ml Syringe) 4 mg IV Q3H PRN PRN PRN Reason: Pain Score 6-10 Last Admin: 06/19/20 08:41 Dose: 4 mg Documented by: Multivitamins/Minerals (Multivitamins,Ther W-Minerals Tablet) [address] [facility] Last Admin: 06/19/20 08:42 Dose: 1 tablet Documented by: Non-Formulary Medication (Dulaglutide [Trulicity]) 1.5 mg SC QWEEK [facility] Nutritional Formula (Lactose Free) (Ensure Clear 120 Ml Liquid) 120 ml PO 4X/DAY [facility] Last Admin: 06/19/20 13:56 Dose: Not Given Documented by: Ondansetron HCl (Ondansetron 4 Mg/2 Ml Vial) 4 mg IV Q8H PRN PRN PRN Reason: NAUSEA/VOMITING Last Admin: 06/18/20 21:33 Dose: 4 mg Documented by: Oxycodone HCl (Oxycodone 5 Mg Tablet) 5 mg PO Q4H PRN PRN PRN Reason: Pain Score 4-5 Last Admin: 06/19/20 06:53 Dose: 5 mg Documented by: Pantoprazole Sodium (Pantoprazole Sodium 40 Mg Tablet) 40 mg PO DAILY [facility] Last Admin: 06/19/20 08:43 Dose: 40 mg Documented by: Potassium Chloride (Potassium Chloride Oral Tablet 20 Meq) 40 meq PO BID [facility] Last Admin: 06/19/20 08:42 Dose: 40 meq Documented by: Sodium Chloride (0.9% Saline Lock 10 Ml Syringe) 10 - 40 ml IV UD PRN PRN Reason: SALINE FLUSH Last Admin: 06/19/20 08:41 Dose: 10 ml Documented by: STROKE Vital Signs/Narrative: Vital Signs Temp Pulse Resp BP Pulse Ox 06/19/20 14:20 98.5 F 83 18 101/60 94 Medical Necessity - Tobacco Use Smoking Status: Never smoker Assessment/Plan All Active Problems (Last Reviewed 05/23/20 @ 08:25 by Lizbeth Colindres) Facial cellulitis (Acute) Dentalgia (Acute) Abscess of maxilla (Acute) ICD (implantable cardioverter-defibrillator) discharge (Acute 04/28/20) Bronchitis with bronchospasm (Resolved) Hypoxia (Resolved) 44 y/o female admitted with a complaint of left face swelling and pain #Cellulitis of the left side of her face, with abscess formation pain and swelling of the left side of her face has improved signficantly. on IV zosyn. blood cultures pending maxillofacial surgeyr consulted PO tylenol, oxycodone and morphine. #Type 2 diabetes mellitus resume home insulin dose. ISS. Accuchecks ACHS #Nonischemic cardiomyopathy on carvedilol, lasix, and lisinopril #Chronic heart failure with reduced ejection fraction recently had a pacemaker/ICD inserted not in exacerbation. #ANA: on CPAP #Hyperlipidemia: on statin. #Hypertension: on lisinopril and cardizem as well as metoprolol. #Afib: on digoxin and cardizem. DVT prophyaxis: lovenox COde status: full code Inpatient E&M: 66583 Subs Hosp L2
[2020-06-19 16:36] LABS: Bedside Glucose 192 mg/dL (70-110)
[2020-06-19] MEDS: Amitriptyline 25 MG Tablet PO (21:26)
[2020-06-19] MEDS: MELATONIN 10 MG TABLET PO (21:27)
[2020-06-19 21:40] LABS: Bedside Glucose 242 mg/dL (70-110)
[2020-06-20] VITALS (11 sets, daily range): BP systolic 88–115; BP diastolic 52–82; PULSE 79–87; RESP 16–18; TEMP 36.4–37; O2SAT 92–99; BMI 40.2
--- NOTE | 2020-06-20 05:55 | EKG12_ITS ---
Test Reason : AM EKG Blood Pressure : / mmHG Vent. Rate : 084 BPM Atrial Rate : 084 BPM P-R Int : 144 ms QRS Dur : 094 ms QT Int : 382 ms P-R-T Axes : 006 008 032 degrees QTc Int : 451 ms Normal sinus rhythm Nonspecific T wave abnormality Abnormal ECG When compared with ECG of 01-JUN-2019 13:17, Nonspecific T wave abnormality now evident in Lateral leads Confirmed by KEVIN ORLANDO, EMMA ([id number]), index editor LADONNA BOWMAN ([id number] on 06/23/2020 1:52:36 PM Referred By: KISHA Confirmed By:EMMA BROWN MD
[2020-06-20] MEDS: Gabapentin 800 MG Tablet PO ×3 (06:26→21:09)
[2020-06-20 06:35] LABS: Bedside Glucose 166 mg/dL (70-110)
[2020-06-20 06:38] LABS: Absolute Lymphocyte Count 2.49 X10^3/uL (0.83-4.51); Absolute Neutrophil Count 5.2 X10^3/uL (2.0-7.7); Basophil# 0.02 X10^3/uL; Basophil% 0.2 % (0-1); Eosinophil# 0.13 X10^3/uL; Eosinophils% 1.5 % (0-5); Hematocrit 42.5 % (37-47); Hemoglobin 13.3 g/dL (12.0-15.0); Lymphocyte # 2.49 X10^3/ul (4.0); Lymphocyte % 28.3 % (19-41); Mean Corp Hgb Conc 31.3 g/dL (32-36); Mean Corpuscular Hgb 28.7 pg (27.0-32.0); Mean Corpuscular Volume 91.6 fL (81-99); Mean Platelet Vol. 10.5 fl (6.2-12.0); Monocyte# 0.92 X10^3/uL; Monocyte% 10.5 % (0-10); NRBC Flagged by Analyzer 0 % (0-5); Neutrophil # 5.17 X10^3/uL (2.7-7.7); Neutrophil % 58.7 % (47-70); Platelet Count 257 K/mm3 (150-450); RBC Distribution Width CV 13.3 % (11.6-14.6); RBC Distribution Width SD 45.1 fl (35.1-43.9); Red Blood Count 4.64 M/mm3 (4.2-5.4); White Blood Count 8.8 K/mm3 (4.4-11.0)
[2020-06-20 07:05] LABS: Anion Gap 6 (5-15); BUN 7 mg/dL (7-18); BUN/Creat Ratio 13.6 RATIO (10-20); Calcium,Total 8.8 mg/dL (8.5-10.1); Chloride 97 mmol/L (98-107); Creatinine, Serum 0.51 mg/dL (0.55-1.02); EST Glomerular Filtration Rate 139 mL/min (>60); Est Glom Filt Rate - Afr Amer 168 mL/min (>60); Estimated Creatinine Clearance 108.44 ml/min; Glucose 185 mg/dL (74-106); Potassium 3.4 mmol/L (3.5-5.1); Sodium Level 136 mmol/L (136-145)
[2020-06-20 07:19] LABS: Digoxin Level 0.41 ng/mL (0.80-2.00)
[2020-06-20 08:05] LABS: Hemoglobin A1c 10.7 % (3.8-5.6)
[2020-06-20] MEDS: Potassium Chloride Oral Tablet 20 MEQ 40 MEQ PO ×3 (08:40→21:09)
[2020-06-20] MEDS: Acetaminophen 325 MG Tablet 650 MG PO ×2 (08:41→17:32)
[2020-06-20] MEDS: oxyCODONE 5 MG Tablet PO ×2 (08:41→17:32)
[2020-06-20] MEDS: Aspirin E.C. 81 MG Tablet PO (08:42)
[2020-06-20] MEDS: Magnesium Chloride 64 MG Delay Rel.Tablet 128 MG PO (08:43)
[2020-06-20] MEDS: Pantoprazole Sodium 40 MG Tablet PO (08:43)
[2020-06-20] MEDS: Multivitamins,Ther W-Minerals Tablet 1 TABLET PO (08:44)
[2020-06-20] MEDS: Carvedilol 25 MG Tablet 37.5 MG PO ×2 (08:44→16:23)
[2020-06-20] MEDS: dilTIAZem CD 120 MG Capsule PO ×2 (08:45→21:10)
[2020-06-20] MEDS: Digoxin 125 MCG Tablet PO (08:47)
[2020-06-20] MEDS: Cholecalciferol (VIT D3) 25 MCG TABLET (1,000 UNITS) 50 MCG PO (09:38)
[2020-06-20] MEDS: Furosemide 40 MG Tablet PO ×2 (09:38→21:08)
[2020-06-20] MEDS: Lisinopril 2.5 MG Tablet PO (09:38)
[2020-06-20] MEDS: Enoxaparin 40 MG/0.4 ML Syringe SC (09:38)
[2020-06-20] MEDS: Ensure Clear 120 ML Liquid PO ×2 (09:40→16:23)
--- NOTE | 2020-06-20 10:12 | PN_ITS ---
Patient Problems: Active and Suspected Problems (Last Reviewed 05/23/20 @ 08:25 by Lizbeth Colindres) Facial cellulitis (Acute) Dentalgia (Acute) Abscess of maxilla (Acute) Subjective: Patient seen and examined. Left-sided facial swelling is much better and pain in the left ear is much better. She is going for tooth extraction by maxillofacial surgery today. Potassium today is 3.4 she has remained hemodynamically stable. Vitals/I&O's: Vital Signs Temp Pulse Resp BP Pulse Ox 97.7 F L 86 18 113/82 H 92 06/20/20 08:33 06/20/20 08:47 06/20/20 08:33 06/20/20 08:47 06/20/20 08:33 Oxygen Delivery Method Room Air Weight: 212 lb 15.994 oz Body Mass Index (BMI) 40.2 Finger Stick Blood Glucose 197 Intake and Output for Last 24 Hours 06/18/20 06/19/20 06/20/20 23:59 23:59 23:59 Intake Total 1704 / 1704 2697.5 / 2697.5 100 / 100 Balance 1704 / 1704 2697.5 / 2697.5 100 / 100 General: Alert, Oriented x3, Cooperative HEENT: - - swelling, tenderness, erythema and differential warmth of the left side of her face has improved significantly. poor dentition. Oral: Dry Mucosa Neck: Supple, No JVD, Negative Carotid Bruits Lungs: Clear to auscultation, Normal air movement Cardiovascular: Regular rate, Regular Rhythm, Normal S1, Normal S2, No murmurs Abdomen: Bowel Sounds Present, Soft, Non Tender Extremities: No clubbing, No cyanosis, No edema, Capillary Refill Less than 3 Seconds Skin: No rashes, No breakdown Musculoskeletal: No Tenderness to Palpation of Joints or Extremities Lymphatic: No Cervical, Supraclavicular, or Inguinal Adenopathy Neurological: Cranial nerves II-XII grossly intact, Neuro grossly intact, Motor Exam 5/5 strength throughout Psych/Mental Status: Normal Affect, Appropriate, Alert and oriented to time, place, person, mood and affect Laboratory Results 06/19/20 11:07: POC Glucose 264 H 06/19/20 16:31: POC Glucose 192 H 06/19/20 21:19: POC Glucose 242 H 06/20/20 06:15: WBC 8.8, RBC 4.64, Hgb 13.3, Hct 42.5, MCV 91.6, MCH 28.7, MCHC 31.3 L, RDW Std Deviation 45.1 H, RDW Coeff of Zeny 13.3, Plt Count 257, MPV 10.5, Immature Gran % (Auto) 0.800, Neut % (Auto) 58.7, Lymph % (Auto) 28.3, [place] % (Auto) 10.5 H, Eos % (Auto) 1.5, Baso % (Auto) 0.2, Absolute Neuts (auto) 5.2, Absolute Lymphs (auto) 2.49, Nucleated RBC % 0 06/20/20 06:15: Sodium 136, Potassium 3.4 L, Chloride 97 L, Carbon Dioxide 33.0 H, Anion Gap 6, BUN 7, Creatinine 0.51 L, Estim Creat Clear Calc 108.44, Est GFR (MDRD) Af Amer 168, Est GFR (MDRD) Non-Af 139, BUN/Creatinine Ratio 13.6, Gluc ose 185 H, Calcium 8.8 06/20/20 06:15: Digoxin 0.41 L 06/20/20 06:15: Hemoglobin A1c 10.7 H 06/20/20 06:31: POC Glucose 166 H Current Medications Acetaminophen (Acetaminophen 325 Mg Tablet) 650 mg PO Q6H PRN PRN PRN Reason: Pain Score 1-10/Temp > 100.7 F Last Admin: 06/20/20 08:41 Dose: 650 mg Documented by: Albuterol Sulfate (Albuterol 2.5 Mg/3 Ml Vial.Neb.) 2.5 mg INHALATION Q4H PRN PRN Reason: shortness of breath or wheezing Amitriptyline HCl (Amitriptyline 25 Mg Tablet) 25 mg PO QHS [facility] Last Admin: 06/19/20 21:26 Dose: 25 mg Documented by: Aspirin (Aspirin E.C. 81 Mg Tablet) 81 mg PO DAILY@0800 [facility] Last Admin: 06/20/20 08:42 Dose: 81 mg Documented by: Atorvastatin Calcium (Atorvastatin Calcium 10 Mg Tablet) 10 mg PO QHS [facility] Last Admin: 06/19/20 21:28 Dose: Not Given Documented by: Carvedilol (Car[facility]ilol 25 Mg Tablet) [facility] Last Admin: 06/20/20 08:44 Dose: 37.5 mg Documented by: Cholecalciferol (Cholecalciferol (Vit D3) 25 Mcg Tablet (1,000 Units)) 50 mcg PO DAILY [facility] Last Admin: 06/20/20 09:38 Dose: 50 mcg Documented by: Dextrose (Dextrose 50%-Water 25 Gm/50 Ml Disp.Syrin) 0 gm IV X1 PRN; Protocol PRN Reason: Hypoglycemia Digoxin (Digoxin 125 Mcg Tablet) 125 mcg PO DAILY [facility] Last Admin: 06/20/20 08:47 Dose: 125 mcg Documented by: Diltiazem HCl (Diltiazem Cd 120 Mg Capsule) 120 mg PO BID [facility] Last Admin: 06/20/20 08:45 Dose: 120 mg Documented by: Enoxaparin Sodium (Enoxaparin 40 Mg/0.4 Ml Syringe) 40 mg SC DAILY [facility] Last Admin: 06/20/20 09:38 Dose: 40 mg Documented by: Furosemide (Furosemide 40 Mg Tablet) 40 mg PO BID [facility] Last Admin: 06/20/20 09:38 Dose: 40 mg Documented by: Gabapentin (Gabapentin 800 Mg Tablet) 800 mg PO TID [facility] Last Admin: 06/20/20 06:26 Dose: 800 mg Documented by: Glucagon (Glucagon 1 Mg/Ml Syringe) 1 mg IM .X1 PRN PRN Reason: Hypoglycemia Sodium Chloride () 250 mls @ 15 mls/hr IV .[id number] PRN PRN Reason: Saline Flush Sodium Chloride () 250 mls @ 15 mls/hr IV .[id number] PRN PRN Reason: Additional IVPB Infusion Piperacillin Sod/Tazobactam (Sod 3.375 gm/ Sodium Chloride) 50 mls @ 12.5 mls/hr IV Q8 [facility] Last Infusion: 06/20/20 09:42 Dose: Infused Documented by: Insulin Glargine (Insulin Glargine 100 Units/Ml Pen) 45 units SC QPM [facility] Last Admin: 06/19/20 21:29 Dose: 45 units Documented by: Insulin Human Lispro (Insulin Lispro 100 Unit/Ml Insuln.Pen) 0 unit SC ACHS [facility]; Protocol Last Admin: 06/20/20 08:29 Dose: Not Given Documented by: Lisinopril (Lisinopril 2.5 Mg Tablet) 2.5 mg PO DAILY [facility] Last Admin: 06/20/20 09:38 Dose: 2.5 mg Documented by: Magnesium Chloride (Magnesium Chloride 64 Mg Delay Rel.Tablet) 128 mg PO DAILY [facility] Last Admin: 06/20/20 08:43 Dose: 128 mg Documented by: Melatonin (Melatonin 10 Mg Tablet) 10 mg PO QHS [facility] Last Admin: 06/19/20 21:27 Dose: 10 mg Documented by: Morphine Sulfate (Morphine 4 Mg/Ml Syringe) 4 mg IV Q3H PRN PRN PRN Reason: Pain Score 6-10 Last Admin: 06/19/20 21:56 Dose: 4 mg Documented by: Multivitamins/Minerals (Multivitamins,Ther W-Minerals Tablet) [facility] Last Admin: 06/20/20 08:44 Dose: 1 tablet Documented by: Nutritional Formula (Lactose Free) (Ensure Clear 120 Ml Liquid) 120 ml PO 4X/DAY [facility] Last Admin: 06/20/20 09:40 Dose: 120 ml Documented by: Ondansetron HCl (Ondansetron 4 Mg/2 Ml Vial) 4 mg IV Q8H PRN PRN PRN Reason: NAUSEA/VOMITING Last Admin: 06/18/20 21:33 Dose: 4 mg Documented by: Oxycodone HCl (Oxycodone 5 Mg Tablet) 5 mg PO Q4H PRN PRN PRN Reason: Pain Score 4-5 Last Admin: 06/20/20 08:41 Dose: 5 mg Documented by: Pantoprazole Sodium (Pantoprazole Sodium 40 Mg Tablet) 40 mg PO DAILY [facility] Last Admin: 06/20/20 08:43 Dose: 40 mg Documented by: Potassium Chloride (Potassium Chloride Oral Tablet 20 Meq) 40 meq PO BID [facility] Last Admin: 06/20/20 08:46 Dose: 40 meq Documented by: Sodium Chloride (0.9% Saline Lock 10 Ml Syringe) 10 - 40 ml IV UD PRN PRN Reason: SALINE FLUSH Last Admin: 06/19/20 21:56 Dose: 10 ml Documented by: STROKE Vital Signs/Narrative: Vital Signs Temp Pulse Resp BP Pulse Ox 06/20/20 08:47 86 113/82 H 06/20/20 08:33 97.7 F L 84 18 113/82 H 92 06/20/20 06:27 98.3 F 85 16 113/69 95 06/20/20 06:24 98.3 F 85 16 113/69 95 Medical Necessity - Tobacco Use Smoking Status: Never smoker Assessment/Plan All Active Problems (Last Reviewed 05/23/20 @ 08:25 by Lizbeth Colindres) Facial cellulitis (Acute) Dentalgia (Acute) Abscess of maxilla (Acute) ICD (implantable cardioverter-defibrillator) discharge (Acute 04/28/20) Bronchitis with bronchospasm (Resolved) Hypoxia (Resolved) 44 y/o female admitted with a complaint of left face swelling and pain #Cellulitis of the left side of her face, with abscess formation * pain and swelling of the left side of her face has improved signficantly. * on IV zosyn. * for extraction of teeth by maxillofacial surgery today. Currently NPO * per NSQIP risk calculator she is at below average risk (5.5%) for serious complication,and below average risk (7.2%) of any complication. Patient cleared to go for surgery with moderate risk * #Hypokalemia: K is 3.4. Will replace and monitor #Type 2 diabetes mellitus * on lantus 45 units qhs. ISS. Acccuchecks ACHS #Nonischemic cardiomyopathy * on carvedilol, lasix, and lisinopril * #Chronic heart failure with reduced ejection fraction * recently had a pacemaker/ICD inserted * not in exacerbation. #ANA: on CPAP #Hyperlipidemia: on statin. #Hypertension: on lisinopril and cardizem as well as metoprolol. #Afib: on digoxin and cardizem. DVT prophyaxis: lovenox COde status: full code * full code Inpatient E&M: 72749 Subs Hosp L2
[2020-06-20] MEDS: Insulin Lispro 100 UNIT/ML INSULN.PEN SC ×3 (11:37→21:12)
[2020-06-20 11:40] LABS: Bedside Glucose 296 mg/dL (70-110)
[2020-06-20] MEDS: Lactated Ringers 1,000 ML 100 ML IV (14:00)
[2020-06-20] MEDS: Lidocaine 2% /Epi 1:100 (50ml) 50 ML Vial (14:56)
--- NOTE | 2020-06-20 15:12 | PCM.OPRPT ---
Problem List (1) Abscess of maxilla Status: Acute Report of Operation Date of Procedure: 06/20/20 Pre-Operative Diagnosis: Cellulitis face Post-Operative Diagnosis: Same Surgery/Procedure Performed:: I and D left facial abscess and removal teeth 10 11 Description of Surgical Findings:: Purulent exudate expressed from maxillary buccal vestibule and over hard palate. Type of Anesthesia:: General Specimen's removed: Cultures sent and removed teeth 10 11 Estimated Blood Loss (mL): minimal Description of Procedure: Patient was seen in pre-op hold area where the procedure was again gone over that we would remove the necessary teeth and I and D all involved spaces. She agrees and the patient was taken to the OR and placed in the supine position. Appropriate monitors placed and draped in the sterile fashion after IV anesthesia induction and oral intubation. Local anesthesia administered and incision in the left maxillary vestibule was done with sharp/blunt dissection into the involved spaces. Teeth 10 and 11 removed.; Purulent exudate was expressed from the palatal abscess. Irrigation done and darryl sutured the area. Bleeding was well controlled. The patient throat was suctioned free of debri she was awakened and extubated and taken to PACU in stable condition.
[2020-06-20] MEDS: Morphine 4 MG/ML Syringe IV ×2 (16:11→22:13)
[2020-06-20 16:56] LABS: Bedside Glucose 191 mg/dL (70-110)
[2020-06-20] MEDS: MELATONIN 10 MG TABLET PO (21:09)
[2020-06-20] MEDS: Amitriptyline 25 MG Tablet PO (21:10)
[2020-06-20 21:21] LABS: Bedside Glucose 282 mg/dL (70-110)
[2020-06-20] MEDS: Docusate Sodium 100 MG Capsule PO (22:07)
[2020-06-20] MEDS: 0.9% Saline Lock 10 ML Syringe IV (22:13)
[2020-06-21 02:57] VITALS: BP 100/60; PULSE 84; RESP 16; TEMP 36.6; O2SAT 97
[2020-06-21] MEDS: Morphine 4 MG/ML Syringe IV (03:50)
[2020-06-21] MEDS: 0.9% Saline Lock 10 ML Syringe IV (03:51)
[2020-06-21] MEDS: Gabapentin 800 MG Tablet PO (06:28)
[2020-06-21] MEDS: Insulin Lispro 100 UNIT/ML INSULN.PEN SC (06:31)
[2020-06-21 06:41] LABS: Bedside Glucose 262 mg/dL (70-110)
[2020-06-21 07:32] LABS: Absolute Lymphocyte Count 2.42 X10^3/uL (0.83-4.51); Absolute Neutrophil Count 4.3 X10^3/uL (2.0-7.7); Basophil# 0.02 X10^3/uL; Basophil% 0.3 % (0-1); Eosinophil# 0.14 X10^3/uL; Eosinophils% 1.8 % (0-5); Hemoglobin 14.1 g/dL (12.0-15.0); Lymphocyte # 2.42 X10^3/ul (4.0); Lymphocyte % 31.4 % (19-41); Mean Corpuscular Hgb 28.7 pg (27.0-32.0); Mean Corpuscular Volume 89.4 fL (81-99); Mean Platelet Vol. 10.2 fl (6.2-12.0); Monocyte# 0.82 X10^3/uL; Monocyte% 10.6 % (0-10); NRBC Flagged by Analyzer 0.6 % (0-5); Neutrophil # 4.26 X10^3/uL (2.7-7.7); Neutrophil % 55.3 % (47-70); Platelet Count 267 K/mm3 (150-450); RBC Distribution Width CV 13.3 % (11.6-14.6); RBC Distribution Width SD 43.4 fl (35.1-43.9); Red Blood Count 4.92 M/mm3 (4.2-5.4); White Blood Count 7.7 K/mm3 (4.4-11.0)
[2020-06-21 08:07] LABS: Anion Gap 6 (5-15); BUN 5 mg/dL (7-18); BUN/Creat Ratio 7.9 RATIO (10-20); Calcium,Total 8.7 mg/dL (8.5-10.1); Chloride 98 mmol/L (98-107); Creatinine, Serum 0.63 mg/dL (0.55-1.02); EST Glomerular Filtration Rate 109 mL/min (>60); Est Glom Filt Rate - Afr Amer 132 mL/min (>60); Estimated Creatinine Clearance 87.78 ml/min; Glucose 266 mg/dL (74-106); Potassium 4.7 mmol/L (3.5-5.1); Sodium Level 134 mmol/L (136-145)
[2020-06-21 08:45] VITALS: BP 111/68; PULSE 98; RESP 14; TEMP 37.2; O2SAT 96
[2020-06-21] MEDS: Pantoprazole Sodium 40 MG Tablet PO (08:55)
[2020-06-21] MEDS: Furosemide 40 MG Tablet PO (08:55)
[2020-06-21] MEDS: Magnesium Chloride 64 MG Delay Rel.Tablet 128 MG PO (08:55)
[2020-06-21] MEDS: Cholecalciferol (VIT D3) 25 MCG TABLET (1,000 UNITS) 50 MCG PO (08:56)
[2020-06-21] MEDS: Lisinopril 2.5 MG Tablet PO (08:56)
[2020-06-21 08:57] VITALS: PULSE 98
[2020-06-21] MEDS: Enoxaparin 40 MG/0.4 ML Syringe SC (08:57)
[2020-06-21] MEDS: Digoxin 125 MCG Tablet PO (08:57)
[2020-06-21] MEDS: Multivitamins,Ther W-Minerals Tablet 1 TABLET PO (08:58)
[2020-06-21] MEDS: Potassium Chloride Oral Tablet 20 MEQ 40 MEQ PO (08:58)
[2020-06-21] MEDS: Aspirin E.C. 81 MG Tablet PO (08:58)
[2020-06-21] MEDS: dilTIAZem CD 120 MG Capsule PO (08:59)
[2020-06-21] MEDS: Carvedilol 25 MG Tablet 37.5 MG PO (08:59)
[2020-06-21] MEDS: Docusate Sodium 100 MG Capsule PO (09:08)
--- NOTE | 2020-06-21 10:01 | DCINST_ITS ---
- Discharge Diagnoses Current Active Problems: Current Active and Chronic Problems (Last Reviewed 05/23/20 @ 08:25 by Lizbeth Colindres) Facial cellulitis (Acute) Dentalgia (Acute) Abscess of maxilla (Acute) You will use the following diet at home:: Calorie/Carbohydrate Controlled (specify 1200, 1400, etc) Your food should be the consistency of: Regular Your liquids should be the consistency of: Regular/Thin Discharge Activity: Return to Normal Activity Call your doctor if you observe: Fever of 101 or Higher, Shortness of breath, Dizziness, Fainting spells, Swelling in the ankles, Chest pain, Increased palpitations (irregular heartbeat) Allergies/Adverse Reactions: Allergies pregabalin [From Lyrica] Allergy (Verified 06/18/20 07:20) Other SI sulfamethoxazole [From Bactrim] Allergy (Verified 06/18/20 07:20) Rash tramadol HCl [From Ultram] Allergy (Verified 06/18/20 07:20) Swelling trimethoprim [From Bactrim] Allergy (Verified 06/18/20 07:20) Rash vancomycin Allergy (Verified 06/18/20 07:20) Swelling Medications to take at Discharge Multivit-Min/Iron/Folic/Lutein [Centrum Silver Women Tablet] 1 tab PO DAILY 05/30/19 Handicap Placard See Rx Instructions .ROUTE .MEDSUPPLY #1 ea 06/06/19 albuterol sulfate 2.5 mg INHALATION Q4H PRN #90 ml 06/06/19 hydrocortisone 2.5 % topical cream 1 applic TOPICAL BID PRN #28 g 09/11/19 albuterol sulfate 90 mcg/actuation aerosol inhaler 1 - 2 puff INHALATION Q6H PRN #8.5 g 05/06/20 aspirin 81 mg tablet,delayed release 81 mg PO DAILY@0800 #90 tab 05/06/20 cholecalciferol (vitamin D3) 50 mcg (2,000 unit) capsule 2,000 unit PO DAILY #90 cap 05/06/20 gabapentin 800 mg tablet 800 mg PO TID #270 tab 05/06/20 melatonin 10 mg tablet 10 mg PO QHS #30 tab 05/06/20 furosemide 40 mg tablet 40 mg PO BID tab 05/23/20 Hydrocodone Bitart/Apap 5-325 [[place] 5/325] 1 tablet PO Q4H PRN PRN 2 Days #10 tab 03/23/21 Amitriptyline HCl 25 mg PO QHS 06/18/20 Carvedilol 37.5 mg PO BID 06/18/20 Digoxin 125 mcg PO DAILY 06/18/20 Diltiazem HCl [Cardizem Cd] 120 mg PO BID 06/18/20 Dulaglutide [Trulicity] 1.5 mg SC QWEEK 06/18/20 Duloxetine HCl 60 mg PO BID 06/18/20 Insulin Glargine [Lantus SoloStar Pen] 45 unit SC QPM 06/18/20 Ketoconazole 1 applic TOPICAL 2XW 06/18/20 Lisinopril 2.5 mg PO DAILY 06/18/20 Magnesium See Rx Instructions PO DAILY 06/18/20 Mecobalamin [B12 Active] 1,000 mcg PO DAILY 06/18/20 Metformin HCl 850 mg PO BID 06/18/20 Omeprazole 40 mg PO DAILY 06/18/20 Potassium Chloride Oral Tablet [K-Dur] 40 meq PO BID 06/18/20 rosuvastatin 10 mg tablet 10 mg PO DAILY #90 tablet 06/19/20 Amoxicillin/Potassium Clav [Augmentin 875-125 Tablet] 1 each PO BID #14 tablet 06/21/20 The following prescriptions were given: Amoxicillin/Potassium Clav [Augmentin 875-125 Tablet] 1 each PO BID #14 tablet Transmission Status: Pending to [facility] Primary Care Physician: Nevaeh Oconnor MD [Primary Care Provider] - Please follow up with your Primary Care Physician in: 3-5 days Test Results: Test results from this visit will be discussed in further detail at your follow- up appointment, if applicable. Please Follow Up With: Joni Adrian DDS When: 1-2 weeks
--- NOTE | 2020-06-21 10:33 | PCM.DC.SUM ---
Discharge Date and Diagnosis - Problem List Patient Problems: Active and Suspected Problems (Last Reviewed 05/23/20 @ 08:25 by Lizbeth Colindres) Facial cellulitis (Acute) Dentalgia (Acute) Abscess of maxilla (Acute) Date of Admission: 06/18/20 Date of Discharge: 06/21/20 - Primary Discharge Diagnosis Acute Problems: Active Problems (Last Reviewed 05/23/20 @ 08:25 by Lizbeth Colindres) Facial cellulitis (Acute) Dentalgia (Acute) Abscess of maxilla (Acute) - Secondary Discharge Diagnosis Chronic Problems: Chronic Problems (Last Reviewed 05/23/20 @ 08:25 by Lizbeth Colindres) History of implantable cardiac defibrillator (ICD) (Chronic 11/15/19) Cardiomyopathy, dilated, nonischemic (Chronic) Tachycardia (Chronic) Essential hypertension (Chronic) Hyperlipidemia (Chronic) Morbid obesity due to excess calories (Chronic) Anxiety and depression (Chronic) Type 2 diabetes mellitus (Chronic) ANA on CPAP (Chronic) Lupus (Chronic) Hospital Course and Treatment Imaging Results: Clinical Impression(s) from Imaging Studies Facial/Sinus 06/18/20 07:34 IMPRESSION: Nodular mucosal thickening along the anterior and lateral castellanos of the left maxillary sinus. Focal subcutaneous soft tissue swelling overlying the maxilla worse on the left side with a focal hypodensity measuring 1.4 cm x 0.8 cm suggestive of a small abscess collection. Electronically Signed: Kashmir Good MD at 8:54 EDT , Service support , Report of Operation Date of Procedure: 06/20/20 Pre-Operative Diagnosis: Cellulitis face Post-Operative Diagnosis: Same Surgery/Procedure Performed:: I and D left facial abscess and removal teeth 10 11 Consults: OMFS Procedures: None Summary of Care Provided: Per HPI: The patient is a 44 year old F with a past medical history as outlined was admitted through the ED on 06/18/2020 with a complaint of left jaw pain and left facial swelling. Patient states she cracked a tooth on the day prior to admission and came into the ED with resultant pain. She was placed on antibiotics and sent home with pain meds. However on waking up in the morning of admission, she had worsening pain in the left upper jaw as well as swelling on the left side of her face. She denied any difficulty breathing when I reviewed her, she says she did not really have a difficult time swallowing though it is documented in the ED physicians note that she felt like there was a blister on the top of her mouth and was given a hard time swallowing. She denied any ear pain and denied any fever or chills. Review of systems otherwise negative. Vitals in the ED showed temperature of 98.7 Fahrenheit with blood pressure of 123/73, pulse rate of 119 and respiratory of 18. She was saturating at 93% on room air. Chemistry showed sodium of 133 and potassium of 3.4 with chloride of 93 and anion gap of 8. CBC showed WBC of 15.1. Facial and sinus CT showed nodular mucosal thickening along the anterior and lateral castellanos of the left maxillary sinus with focal subcutaneous soft tissue swelling overlying the maxilla worse on the left side with a focal hypodensity measuring 1.4 cm x 0.8 cm suggestive of a small abscess collection. She has been admitted to be for facial cellulitis. Hospital Course: 1. Left facial cellulitis with abscess status post I&D with removal of [id number] female presented to the hospital with left jaw pain and swelling. She was initially started on antibiotics and sent home however on the morning of admission she had worsening left jaw swelling and pain. She was seen by OMFS and taken to the OR for an I&D and removal of teeth. Her white count has significantly improved and her pain has improved as well. She does not feel she needs narcotics to go home with and can just take some ibuprofen. We will continue with Augmentin for 7 more days, she has been improving after her I&D and she had been on Zosyn while in the hospital. I discussed with her the plan for discharge today and she expressed understanding of the risk benefits of going home and would like to go home today. 2. Type 2 diabetes, nonischemic cardiomyopathy, chronic systolic CHF, ANA, hyperlipidemia, hypertension, A. fib are all chronic medical conditions which complicate her care. Her home medications were continued where appropriate Patient Problems: Active and Suspected Problems (Last Reviewed 05/23/20 @ 08:25 by Lizbeth Colindres) Facial cellulitis (Acute) Dentalgia (Acute) Abscess of maxilla (Acute) - Physical Exam Vitals/I&O's: Vital Signs Temp Pulse Resp BP Pulse Ox 98.9 F 98 14 111/68 96 06/21/20 08:45 06/21/20 08:57 06/21/20 08:45 06/21/20 08:45 06/21/20 08:45 Oxygen Flow Rate (L/min) 2 Oxygen Delivery Method Room Air Weight: 212 lb 15.994 oz Body Mass Index (BMI) 40.2 Finger Stick Blood Glucose 197 Intake and Output for Last 24 Hours 06/19/20 06/20/20 06/21/20 23:59 23:59 23:59 Intake Total 2697.5 / 2697.5 1869 100 / 100 Balance 2697.5 / 2697.5 1869 100 / 100 General: Alert, Oriented x3, Cooperative, No apparent distress HEENT: Atraumatic, PERRLA, EOMI, Normocephalic Oral: Moist Mucosa, - - Mucosa swollen on the left, pain is improved Neck: Supple, No JVD Lungs: Clear to auscultation, Normal air movement, No rhonchi, No wheeze, No rales Cardiovascular: Regular rate, Regular Rhythm, Normal S1, Normal S2, No murmurs Abdomen: Soft, Non Tender, Non-Distended, No Hepato-splenomegaly Extremities: No edema, Capillary Refill Less than 3 Seconds Skin: No rashes, No breakdown Neurological: Neuro grossly intact, Sensory exam intact to light touch and pain Psych/Mental Status: Normal Affect, Appropriate Microbiology Past 72 Hours 06/18/20 12:53 Blood Culture (Wb) - Left Hand Blood Culture - Preliminary No growth in 48 hours. 06/18/20 12:47 Blood Culture (Wb) - Anticubital Right Blood Culture - Preliminary No growth in 48 hours. 06/20/20 11:30 Interface Orders SARS-CoV-2 Antigen (Rapid) - Final Laboratory Results 06/20/20 11:35: POC Glucose 296 H 06/20/20 16:17: POC Glucose 191 H 06/20/20 21:01: POC Glucose 282 H 06/21/20 06:30: POC Glucose 262 H 06/21/20 07:10: WBC 7.7, RBC 4.92, Hgb 14.1, Hct 44.0, MCV 89.4, MCH 28.7, MCHC 32.0, RDW Std Deviation 43.4, RDW Coeff of Zeny 13.3, Plt Count 267, MPV 10.2, Immature Gran % (Auto) 0.600, Neut % (Auto) 55.3, Lymph % (Auto) 31.4, [place] % (Auto) 10.6 H, Eos % (Auto) 1.8, Baso % (Auto) 0.3, Absolute Neuts (auto) 4.3, Absolute Lymphs (auto) 2.42, Nucleated RBC % 0.6 06/21/20 07:10: Sodium 134 L, Potassium 4.7, Chloride 98, Carbon Dioxide 30.0, Anion Gap 6, BUN 5 L, Creatinine 0.63, Estim Creat Clear Calc 87.78, Est GFR (MDRD) Af Amer 132, Est GFR (MDRD) Non-Af 109, BUN/Creatinine Ratio 7.9 L, Glucose 266 H, Calcium 8.7 Current Medications Acetaminophen (Acetaminophen 325 Mg Tablet) 650 mg PO Q6H PRN PRN PRN Reason: Pain Score 1-10/Temp > 100.7 F Last Admin: 06/20/20 17:32 Dose: 650 mg Documented by: Albuterol Sulfate (Albuterol 2.5 Mg/3 Ml Vial.Neb.) 2.5 mg INHALATION Q4H PRN PRN Reason: shortness of breath or wheezing Amitriptyline HCl (Amitriptyline 25 Mg Tablet) 25 mg PO QHS [facility] Last Admin: 06/20/20 21:10 Dose: 25 mg Documented by: Aspirin (Aspirin E.C. 81 Mg Tablet) 81 mg PO DAILY@0800 [facility] Last Admin: 06/21/20 08:58 Dose: 81 mg Documented by: Atorvastatin Calcium (Atorvastatin Calcium 10 Mg Tablet) 10 mg PO QHS [facility] Last Admin: 06/20/20 21:09 Dose: Not Given Documented by: Carvedilol (Carvedilol 25 Mg Tablet) 37.5 mg PO BIDCM [facility] Last Admin: 06/21/20 08:59 Dose: 37.5 mg Documented by: Cholecalciferol (Cholecalciferol (Vit D3) 25 Mcg Tablet (1,000 Units)) 50 mcg PO DAILY [facility] Last Admin: 06/21/20 08:56 Dose: 50 mcg Documented by: Dextrose (Dextrose 50%-Water 25 Gm/50 Ml Disp.Syrin) 0 gm IV X1 PRN; Protocol PRN Reason: Hypoglycemia Digoxin (Digoxin 125 Mcg Tablet) 125 mcg PO DAILY [facility] Last Admin: 06/21/20 08:57 Dose: 125 mcg Documented by: Diltiazem HCl (Diltiazem Cd 120 Mg Capsule) 120 mg PO BID [facility] Last Admin: 06/21/20 08:59 Dose: 120 mg Documented by: Docusate Sodium (Docusate Sodium 100 Mg Capsule) 100 mg PO BID [facility] Last Admin: 06/21/20 09:08 Dose: 100 mg Documented by: Enoxaparin Sodium (Enoxaparin 40 Mg/0.4 Ml Syringe) 40 mg SC DAILY [facility] Last Admin: 06/21/20 08:57 Dose: 40 mg Documented by: Furosemide (Furosemide 40 Mg Tablet) 40 mg PO BID [facility] Last Admin: 06/21/20 08:55 Dose: 40 mg Documented by: Gabapentin (Gabapentin 800 Mg Tablet) 800 mg PO TID [facility] Last Admin: 06/21/20 06:28 Dose: 800 mg Documented by: Glucagon (Glucagon 1 Mg/Ml Syringe) 1 mg IM .X1 PRN PRN Reason: Hypoglycemia Sodium Chloride () 250 mls @ 15 mls/hr IV .[id number] PRN PRN Reason: Saline Flush Sodium Chloride () 250 mls @ 15 mls/hr IV .[id number] PRN PRN Reason: Additional IVPB Infusion Piperacillin Sod/Tazobactam (Sod 3.375 gm/ Sodium Chloride) 50 mls @ 12.5 mls/hr IV Q8 [facility] Last Admin: 06/21/20 05:06 Dose: 12.5 mls/hr Documented by: Lactated Ringer's () 1,000 mls @ 100 mls/hr IV .Q10H [facility] Last Admin: 06/21/20 02:02 Dose: Not Given Documented by: Insulin Glargine (Insulin Glargine 100 Units/Ml Pen) 45 units SC QPM [facility] Last Admin: 06/20/20 21:11 Dose: 45 units Documented by: Insulin Human Lispro (Insulin Lispro 100 Unit/Ml Insuln.Pen) 0 unit SC ACHS [facility]; Protocol Last Admin: 06/21/20 06:31 Dose: 6 units Documented by: Lisinopril (Lisinopril 2.5 Mg Tablet) 2.5 mg PO DAILY [facility] Last Admin: 06/21/20 08:56 Dose: 2.5 mg Documented by: Magnesium Chloride (Magnesium Chloride 64 Mg Delay Rel.Tablet) 128 mg PO DAILY [facility] Last Admin: 06/21/20 08:55 Dose: 128 mg Documented by: Melatonin (Melatonin 10 Mg Tablet) 10 mg PO QHS [facility] Last Admin: 06/20/20 21:09 Dose: 10 mg Documented by: Morphine Sulfate (Morphine 4 Mg/Ml Syringe) 4 mg IV Q3H PRN PRN PRN Reason: Pain Score 6-10 Last Admin: 06/21/20 03:50 Dose: 4 mg Documented by: Multivitamins/Minerals (Multivitamins,Ther W-Minerals Tablet) [facility] Last Admin: 06/21/20 08:58 Dose: 1 tablet Documented by: Nutritional Formula (Lactose Free) (Ensure Clear 120 Ml Liquid) 120 ml PO 4X/DAY [facility] Last Admin: 06/21/20 09:08 Dose: Not Given Documented by: Ondansetron HCl (Ondansetron 4 Mg/2 Ml Vial) 4 mg IV Q8H PRN PRN PRN Reason: NAUSEA/VOMITING Last Admin: 06/18/20 21:33 Dose: 4 mg Documented by: Oxycodone HCl (Oxycodone 5 Mg Tablet) 5 mg PO Q4H PRN PRN PRN Reason: Pain Score 4-5 Last Admin: 06/20/20 17:32 Dose: 5 mg Documented by: Pantoprazole Sodium (Pantoprazole Sodium 40 Mg Tablet) 40 mg PO DAILY [facility] Last Admin: 06/21/20 08:55 Dose: 40 mg Documented by: Potassium Chloride (Potassium Chloride Oral Tablet 20 Meq) 40 meq PO BID [facility] Last Admin: 06/21/20 08:58 Dose: 40 meq Documented by: Sodium Chloride (0.9% Saline Lock 10 Ml Syringe) 10 - 40 ml IV UD PRN PRN Reason: SALINE FLUSH Last Admin: 06/21/20 03:51 Dose: 10 ml Documented by: Discharge Activity: Return to Normal Activity Call your doctor if you observe: Fever of 101 or Higher, Shortness of breath, Dizziness, Fainting spells, Swelling in the ankles, Chest pain, Increased palpitations (irregular heartbeat) Home Medications: Medications to take at Discharge Multivit-Min/Iron/Folic/Lutein [Centrum Silver Women Tablet] 1 tab PO DAILY 05/30/19 Handicap Placard See Rx Instructions .ROUTE .MEDSUPPLY #1 ea 06/06/19 albuterol sulfate 2.5 mg INHALATION Q4H PRN #90 ml 06/06/19 hydrocortisone 2.5 % topical cream 1 applic TOPICAL BID PRN #28 g 09/11/19 albuterol sulfate 90 mcg/actuation aerosol inhaler 1 - 2 puff INHALATION Q6H PRN #8.5 g 05/06/20 aspirin 81 mg tablet,delayed release 81 mg PO DAILY@0800 #90 tab 05/06/20 cholecalciferol (vitamin D3) 50 mcg (2,000 unit) capsule 2,000 unit PO DAILY #90 cap 05/06/20 gabapentin 800 mg tablet 800 mg PO TID #270 tab 05/06/20 melatonin 10 mg tablet 10 mg PO QHS #30 tab 05/06/20 furosemide 40 mg tablet 40 mg PO BID tab 05/23/20 Hydrocodone Bitart/Apap 5-325 [[place] 5/325] 1 tablet PO Q4H PRN PRN 2 Days #10 tab 06/17/20 Amitriptyline HCl 25 mg PO QHS 06/18/20 Carvedilol 37.5 mg PO BID 06/18/20 Digoxin 125 mcg PO DAILY 06/18/20 Diltiazem HCl [Cardizem Cd] 120 mg PO BID 06/18/20 Dulaglutide [Trulicity] 1.5 mg SC QWEEK 06/18/20 Duloxetine HCl 60 mg PO BID 06/18/20 Insulin Glargine [Lantus SoloStar Pen] 45 unit SC QPM 06/18/20 Ketoconazole 1 applic TOPICAL 2XW 06/18/20 Lisinopril 2.5 mg PO DAILY 06/18/20 Magnesium See Rx Instructions PO DAILY 06/18/20 Mecobalamin [B12 Active] 1,000 mcg PO DAILY 06/18/20 Metformin HCl 850 mg PO BID 06/18/20 Omeprazole 40 mg PO DAILY 06/18/20 Potassium Chloride Oral Tablet [K-Dur] 40 meq PO BID 06/18/20 rosuvastatin 10 mg tablet 10 mg PO DAILY #90 tablet 06/19/20 Amoxicillin/Potassium Clav [Augmentin 875-125 Tablet] 1 each PO BID #14 tablet 06/21/20 Following Prescriptions Were Given to Patient: Amoxicillin/Potassium Clav [Augmentin 875-125 Tablet] 1 each PO BID #14 tablet Transmission Status: Pending to [facility] Primary Care Physician: Nevaeh Oconnor MD [Primary Care Provider] - Please follow up with your Primary Care Physician in: 3-5 days Please Follow Up With: Joni Adrian DDS When: 1-2 weeks Please Follow Up With: Nevaeh Oconnor MD Disposition: Home Minutes spent on discharge:: 35 Patient Condition:: Stable Medical Necessity - Tobacco Use Smoking Status: Never smoker Meaningful Use Info Meaningful Use Diagnoses (Choose all that apply): None applicable Inpatient E&M: [id number] [facility]
--- NOTE | 2020-06-23 15:38 | CASEMGMT ---
TASNEEM DUARTE Discharge Follow-up Phone Call: FILIPE: Cas Strata: 3 Call Date: 06/23/20 Discharge Date: 06/21/20 Time of Call: 1540 Duration: 3 min Admitting Diagnosis: Jaw swelling TASNEEM DUARTE completed follow-up phone call after recent hospitalization. Patient states she is doing well. Patient had no questions or concerns regarding discharge instructions. Patient was able to fill prescription without any issues. Patient states she has called and scheduled follow-up appts with dentist and PCP. Patient had no further questions or concerns at this time.
== END 2020-06-21 11:57 | disposition home or self-care (01) | DRG 158 ==
LOC: ED 09:51 → PCU 10:04
PROVIDERS: Anesthesiology; Dentist Oral and Maxillofacial Surgery; Admitting Provider Student in an Organized Health Care Education/Training Program; Emergency Provider Emergency Medicine; PCP Internal Medicine; Visit Provider Family Medicine
PROC: 0W930ZX Drainage of Oral Cavity and Throat, Open Approach, Diagnostic (ICD-10-PCS; principal; 2020-06-20 14:20)
DX: M27.2 Inflammatory conditions of jaws (principal); L03.211 Cellulitis of face; I42.0 Dilated cardiomyopathy; Z68.41 Body mass index [BMI] 40.0-44.9, adult; I50.22 Chronic systolic (congestive) heart failure; K03.81 Cracked tooth; I11.0 Hypertensive heart disease with heart failure; E78.5 Hyperlipidemia, unspecified; E66.01 Morbid (severe) obesity due to excess calories; F32.9 Major depressive disorder, single episode, unspecified; F41.9 Anxiety disorder, unspecified; E11.65 Type 2 diabetes mellitus with hyperglycemia; E87.6 Hypokalemia; M32.9 Systemic lupus erythematosus, unspecified; I48.91 Unspecified atrial fibrillation; G47.33 Obstructive sleep apnea (adult) (pediatric); K58.9 Irritable bowel syndrome, unspecified; K21.9 Gastro-esophageal reflux disease without esophagitis; R00.0 Tachycardia, unspecified; Z23 Encounter for immunization; Z95.810 Presence of automatic (implantable) cardiac defibrillator; Z79.82 Long term (current) use of aspirin; Z79.4 Long term (current) use of insulin; Z79.899 Other long term (current) drug therapy; Z86.14 Personal history of Methicillin resistant Staphylococcus aureus infection
CPT/HCPCS: 36415; 70487; 80048; 80162; 82962; 83036; 83605; 85025; 87040; 87070; 87075; 87077; 87102; 87186; 87205; 87206; 87426; 93005; 99283; 99285; J7030; J7120; Q9967; 90686; A4216; J2405

== ENCOUNTER → 2020-07-22 12:07 | Outpatient (CLI) | payer OTHER, SELFPAY ==
[2020-07-04 09:12] VITALS: BMI 39.2
[2020-07-22 12:54] LABS: Anion Gap 7 (5-15); BUN 13 mg/dL (7-18); BUN/Creat Ratio 16.3 RATIO (10-20); Calcium,Total 9.5 mg/dL (8.5-10.1); Chloride 93 mmol/L (98-107); EST Glomerular Filtration Rate 84 mL/min (>60); Est Glom Filt Rate - Afr Amer 101 mL/min (>60); Glucose 356 mg/dL (74-106); Magnesium 1.9 mg/dL (1.6-2.6); Potassium 3.6 mmol/L (3.5-5.1); Sodium Level 133 mmol/L (136-145)
== END ==
PROVIDERS: Physician Assistant Medical; PCP Internal Medicine; Referring Provider Internal Medicine Cardiovascular Disease; Visit Provider Internal Medicine Cardiovascular Disease
DX: I10 Essential (primary) hypertension (principal); E11.9 Type 2 diabetes mellitus without complications; E66.01 Morbid (severe) obesity due to excess calories; E78.5 Hyperlipidemia, unspecified; F32.9 Major depressive disorder, single episode, unspecified; F41.9 Anxiety disorder, unspecified; G47.33 Obstructive sleep apnea (adult) (pediatric); I42.0 Dilated cardiomyopathy; R00.0 Tachycardia, unspecified; Z95.810 Presence of automatic (implantable) cardiac defibrillator; Z99.89 Dependence on other enabling machines and devices; Z45.02 Encounter for adjustment and management of automatic implantable cardiac defibrillator
CPT/HCPCS: 36415; 80048; 83735

== ENCOUNTER 2020-08-11 06:57 | Emergency (ER) | payer OTHER, SELFPAY ==
[2020-07-31 15:33] VITALS: BMI 40.0
[2020-08-11 06:58] VITALS: BP 124/78; PULSE 108; RESP 12; TEMP 36.6; O2SAT 94; BMI 39.2
--- NOTE | 2020-08-11 07:28 | CT_ITS ---
STUDY: CT ABDOMEN AND PELVIS WITH CONTRAST REASON FOR EXAM: Female, 44 years old. abdominal pain RADIATION DOSAGE (If Supplied By Facility): CTDIvol = ( 16.39 ) mGy, DLP = ( 1156.82 ) mGycm TECHNIQUE: Transaxial images were obtained from the dome of the diaphragm to the symphysis pubis without oral contrast. IV 100mL Isovue-300 was administered. Sagittal and coronal images were reconstructed. Individualized dose optimization techniques were used for this CT. COMPARISON: 09/27/2019 FINDINGS: The visualized lung bases are unremarkable. The visualized portions of the heart are within normal limits. Normal liver. There is non-visualization of the gallbladder, which may be secondary to either contraction or a prior cholecystectomy. Normal spleen. Normal pancreas. Normal bilateral adrenal glands. Normal right kidney. Normal left kidney. Normal visualized stomach. Normal small intestine. Normal colon. The appendix is visualized and appears normal. Normal abdominal aorta. Normal inferior vena cava. Normal retroperitoneum. Normal urinary bladder. Normal abdominal wall. Moderate levoscoliosis lumbar spine with degenerative disc disease. CT/Abdomen/Pelvis W IV Cont ONLY IMPRESSION: Normal enhanced CT of the abdomen and pelvis. Electronically Signed: Nelson Sorensen MD at 9:08 EDT Tel , Service support ,
--- NOTE | 2020-08-11 07:28 | EKG12_ITS ---
Test Reason : SYNCOPE Blood Pressure : / mmHG Vent. Rate : 107 BPM Atrial Rate : 107 BPM P-R Int : 156 ms QRS Dur : 096 ms QT Int : 360 ms P-R-T Axes : 026 016 040 degrees QTc Int : 480 ms Sinus tachycardia Nonspecific ST and T wave abnormality Abnormal ECG Confirmed by NIRALI ORLANDO, GELACIO ([id number]), supervising film or videotape editor LADONNA BOWMAN ([id number]) on 08/12/2020 10:05:55 AM Referred By: MAXINE Confirmed By:GELACIO CAMPOVERDE MD
--- NOTE | 2020-08-11 07:30 | EDS_ITS ---
HPI History of Present Illness Chief Complaint: Syncope Narrative Narrative: 44-year-old female presenting with fever of 102 Fahrenheit times the last few days. Patient also complains of chills and sweats. Patient states that she has had a couple episodes of near syncope and she feels as if her pacemaker is going off. She denies out right chest pain. She states she does have a cough. She states that she is somewhat short of breath. Patient states that she has had her first Covid vaccine and has not been exposed to anybody that has been ill. Patient also complains of abdominal pain in the right lower quadrant. Patient states that this has been ongoing since she injected insulin to this area. She states she is concerned she might of hit a vein and cause problem. Patient denies any change in bowel habits. She denies urinary complaints. She has nausea without vomiting. [facility] Medical History (Updated 08/11/20 @ 08:36 by Saloni Moreau) Abdominal panniculus, symptomatic Anxiety and depression Arthritis Cardiomyopathy, dilated, nonischemic Chronic systolic (congestive) heart failure Diverticulitis Essential hypertension History of MRSA infection Hyperlipidemia IBS (irritable bowel syndrome) Insomnia Lupus Migraines Morbid obesity due to excess calories Neuropathy Neuropathy Nonhealing surgical wound Obesity Open wound of abdominal wall with complication Open wound of neck with complication ANA (obstructive sleep apnea) ANA on CPAP Syncope (08/07/20) Tachycardia Type 2 diabetes mellitus Type 2 diabetes mellitus without complication Home Medications [id number] 1 tablet PO DAILY 05/30/19 [History Last Taken 06/18/20 08:00] Handicap Placard #1 ea 06/06/19 [Rx Last Taken Unknown] albuterol sulfate 2.5 mg INHALATION Q4H PRN #90 ml 06/06/19 [Rx Last Taken Unknown] hydrocortisone 2.5 % topical cream 1 applic TOPICAL BID PRN #28 gm 09/11/19 [Rx Last Taken 06/13/20] albuterol sulfate 90 mcg/actuation aerosol inhaler 1 - 2 puff INHALATION Q6H PRN #8.5 gm 05/06/20 [Rx Last Taken Unknown] aspirin 81 mg tablet,delayed release 81 mg PO DAILY@0800 #90 tablet 05/06/20 [Rx Last Taken 06/18/20 08:00] cholecalciferol (vitamin D3) 50 mcg (2,000 unit) capsule 2,000 unit PO DAILY #90 cap 05/06/20 [Rx Last Taken 06/18/20 08:00] gabapentin 800 mg tablet 800 mg PO TID #270 tablet 05/06/20 [Rx Last Taken 06/18/20 08:00] melatonin 10 mg tablet 10 mg PO QHS #30 tablet 05/06/20 [Rx Last Taken 06/17/20 21:00] furosemide 40 mg tablet 40 mg PO BID tablet 05/23/20 [History Last Taken 06/18/20 08:00] amitriptyline 25 mg PO QHS 06/18/20 [History Last Taken 06/17/20 21:00] carvedilol 37.5 mg PO BID 06/18/20 [History Last Taken 06/18/20 08:00] digoxin 125 mcg PO DAILY 06/18/20 [History Last Taken 06/18/20 08:00] diltiazem HCl 120 mg PO BID 06/18/20 [History Last Taken 06/18/20 08:00] duloxetine 60 mg PO BID 06/18/20 [History Last Taken 06/18/20 08:00] insulin glargine 45 unit SC QPM 06/18/20 [History Last Taken 06/17/20 21:00] ketoconazole 1 applic TOPICAL 2XW 06/18/20 [History Last Taken 06/18/20 11:02] lisinopril 2.5 mg PO DAILY 06/18/20 [History Last Taken 06/18/20 08:00] mecobalamin (vitamin B12) 1,000 mcg PO DAILY 06/18/20 [History Last Taken 06/18/20 08:00] rosuvastatin 10 mg tablet 10 mg PO DAILY #90 tablet 06/19/20 [Rx Last Taken Unknown] dulaglutide 3 mg/0.5 mL subcutaneous pen injector 3 mg SC QWEEK 60 Days #4.5 ml 07/04/20 [Rx Last Taken Unknown] magnesium oxide 400 mg PO QHS #90 tablet 07/04/20 [Rx Last Taken Unknown] metformin 1,000 mg tablet 1,000 mg PO BID 90 Days #180 tablet 07/04/20 [Rx Last Taken Unknown] potassium chloride 40 mEq/15 mL oral liquid 40 meq PO BID 90 Days #2700 ml 07/04/20 [Rx Last Taken Unknown] omeprazole 40 mg capsule,delayed release 40 mg PO DAILY #90 cap 07/28/20 [Rx Last Taken Unknown] Allergy/AdvReac Type Severity Reaction Status Date / Time pregabalin [From Lyrica] Allergy Other Verified 07/04/20 09:16 sulfamethoxazole Allergy Rash Verified 07/04/20 09:16 [From Bactrim] tramadol HCl [From Ultram] Allergy Swelling Verified 07/04/20 09:16 trimethoprim [From Bactrim] Allergy Rash Verified 07/04/20 09:16 vancomycin Allergy Swelling Verified 07/04/20 09:16 Family History Other Arthritis Breast cancer CVA (cerebral vascular accident) Depression Diabetes Heart disease Hyperlipemia Hypertension Kidney disease Thyroid disorder Surgical History History of cholecystectomy History of dental surgery History of hysterectomy History of implantable cardiac defibrillator (ICD) (11/15/19) History of left heart catheterization (06/01/19) History of neck surgery navel removal Social History Smoking Status: Never smoker alcohol intake: never substance use type: does not use caffeine: No what type of physical activity do you participate in: none ROS ROS ED Constitutional Constitutional ED: Reports chills, fever(s) and sweats Eyes Eyes: Denies blurry vision or change in vision ENT ENT ED: Denies ear pain, rhinorrhea or sore throat Cardiovascular Cardiovascular: Reports other Details: Syncope and lightheadedness ; Denies chest pain, palpitations or racing heartbeat Respiratory/Chest Respiratory/Chest: Denies cough, dyspnea or sputum Gastrointestinal Gastrointestinal: Reports abdominal pain and nausea; Denies constipation, diarrhea or vomiting Genitourinary Genitourinary ED: Denies dysuria, hematuria or urinary frequency Musculoskeletal Musculoskeletal: Denies arthralgias, myalgias or neck pain Integumentary Denies abscess, Abrasions or rash Neurologic Neurologic: Denies headache(s), paresthesias or weakness Psychiatric Psychiatric: Denies anxiety, depression, suicidal ideation or suicidal thoughts Endocrine Endocrinology: Denies polydipsia or polyuria EXAM Physical Exam Const Vital Signs: 08/11/20 06:58 08/11/20 09:00 08/11/20 09:01 Temperature 98 F Temperature Source Temporal Pulse Rate 108 H 106 H Pulse Rate [Lying] 106 H Pulse Rate [Sitting] 108 H Pulse Rate [Standing] 112 H Respiratory Rate 12 16 Blood Pressure 124/78 H 93/71 Blood Pressure [Lying] 93/71 Blood Pressure [Sitting] 95/70 Blood Pressure [Standing] 92/74 Blood Pressure Mean 93 78 Blood Pressure Mean [Lying] 78 Blood Pressure Mean [Sitting] 78 Blood Pressure Mean [Standing] 80 Pulse Ox 94 Oxygen Delivery Method Room Air 08/11/20 11:58 Temperature Temperature Source Pulse Rate 98 Pulse Rate [Lying] Pulse Rate [Sitting] Pulse Rate [Standing] Respiratory Rate 20 H Blood Pressure 99/71 Blood Pressure [Lying] Blood Pressure [Sitting] Blood Pressure [Standing] Blood Pressure Mean Blood Pressure Mean [Lying] Blood Pressure Mean [Sitting] Blood Pressure Mean [Standing] Pulse Ox 94 Oxygen Delivery Method Positive well nourished General Appearance ED: NAD; Negative for pallor HEENT Reports normocephalic, head/scalp atraumatic and moist mucous membranes Eyes PERRL and EOMs intact bilaterally Neck no lymphadenopathy and supple Chest Wall inspection of chest normal and palpation of chest normal Resp normal respiratory effort and clear to auscultation bilaterally Auscultation: Negative for rales, rhonchi or wheezes Cardio regular rate and regular rhythm GI non-distended Auscultation: normoactive bowel sounds Palpation: soft and tender RLQ Narrative: Deferred Back/Spine no CVA tenderness General Back: Negative for CVA tenderness Cervical Spine: Negative for cervical spine tenderness Extremity normal to inspection General Extremety ED: Yes edema and tenderness General Extremity: edema Neuro oriented x3 and CN's II-XII intact bilaterally Sensorium / Orientation: alert Motor Exam: strength 5/5 throughout Psych mental status grossly normal Attitude: No agitated Skin no rashes or lesions noted and no wounds General Skin Exam: Negative for jaundice or pallor MDM MDM MDM Narrative Medical decision making narrative: Patient presenting with near syncopal episodes and concerned that her pacemaker is shocking her. EKG performed on arrival is sinus rhythm at 170 bpm without signs of ischemic changes as interpreted by myself. Chest x-ray as interpreted by myself shows no acute process. Radiology does agree. I did obtain ultrasounds of the bilateral lung [place] and there is no appreciable pleural effusions. CT of the abdomen pelvis is performed and is negative for acute findings. Lab work shows white blood cell count of 19.2, hemoglobin 13.7, platelets 228. Patient's creatinine is normal. Potassium slightly low at 3.4 and I do not believe this needs to be replaced in the emergency room. Glucose is 331 however there is no anion gap. BNP is only 39. Urinalysis is slightly contaminated but does not appear to be consistent with UTI. Patient's pacemaker was interrogated and found to have no problems. I discussed this with Dr. Higginbotham who confirms that she has not had any shocks. The pacemaker is working normally. She had orthostatic vital signs wh ich were negative. Is unclear what the source of her leukocytosis is but given she has stable vital signs and no acute findings I believe she safe to be discharged home. Patient can return precautions. Impression: 1. Near syncope 2. Leukocytosis 3. Hyperglycemia Lab Data Labs: Laboratory Results - last 24 hr 08/11/20 08/11/20 08/11/20 07:40 07:40 07:40 WBC 19.2 H RBC 4.81 Hgb 13.7 Hct 41.6 MCV 86.5 MCH 28.5 MCHC 32.9 RDW Std Deviation 40.0 RDW Coeff of Zeny 12.7 Plt Count 228 MPV 10.6 Immature Gran % (Auto) 0.700 Neut % (Auto) 72.4 H Lymph % (Auto) 16.1 L [place] % (Auto) 10.2 H Eos % (Auto) 0.3 Baso % (Auto) 0.3 Absolute Neuts (auto) 13.9 H Absolute Lymphs (auto) 3.09 Nucleated RBC % 0 [address] Review May foll Sodium 131 L Potassium 3.4 L Chloride 93 L Carbon Dioxide 30.0 Anion Gap 8 BUN 9 Creatinine 0.72 Estim Creat Clear Calc 76.81 Est GFR (MDRD) Af Amer 113 Est GFR (MDRD) Non-Af 94 BUN/Creatinine Ratio 12.4 Glucose 331 H Calcium 8.6 Total Bilirubin 0.60 AST 26 ALT 33 Alkaline Phosphatase 181 H Troponin I < 0.015 B-Natriuretic Peptide 39.3 Total Protein 7.4 Albumin 2.7 L Globulin 4.7 H Albumin/Globulin Ratio 0.6 L Urine Color Urine Clarity Urine pH Ur Specific [place] Urine Protein Urine Glucose (UA) Urine Ketones Urine Occult Blood Urine Nitrite Urine Bilirubin Urine Urobilinogen Ur Leukocyte Esterase Urine RBC Urine WBC Ur Squamous Epith Cells Urine Bacteria Urine Mucus 08/11/20 09:15 WBC RBC Hgb Hct MCV MCH MCHC RDW Std Deviation RDW Coeff of Zeny Plt Count MPV Immature Gran % (Auto) Neut % (Auto) Lymph % (Auto) [place] % (Auto) Eos % (Auto) Baso % (Auto) Absolute Neuts (auto) Absolute Lymphs (auto) Nucleated RBC % Diff Path Review Sodium Potassium Chloride Carbon Dioxide Anion Gap BUN Creatinine Estim Creat Clear Calc Est GFR (MDRD) Af Amer Est GFR (MDRD) Non-Af BUN/Creatinine Ratio Glucose Calcium Total Bilirubin AST ALT Alkaline Phosphatase Troponin I B-Natriuretic Peptide Total Protein Albumin Globulin Albumin/Globulin Ratio Urine Color Yellow Urine Clarity Clear Urine pH 6.0 Ur Specific [place] 1.005 Urine Protein 15 H Urine Glucose (UA) 250 H Urine Ketones Negative Urine Occult Blood 10 H Urine Nitrite Negative Urine Bilirubin Negative Urine Urobilinogen Normal Ur Leukocyte Esterase 100 H Urine RBC 0-5 SEEN Urine WBC 5-10 SEEN Ur Squamous Epith Cells 0-5 SEEN Urine Bacteria RARE Urine Mucus RARE Radiography Diagnostic Testing: Radiology Impression Abdomen/Pelvis CT 08/11/20 07:28 IMPRESSION: Normal enhanced CT of the abdomen and pelvis. Electronically Signed: Nelson Sorensen MD at 9:08 EDT Tel , Service support , Chest Ultrasound 08/11/20 07:42 IMPRESSION: No sizable pleural effusion. Electronically Signed: Nelson Sorensen MD at 10:08 EDT Tel , Service support , Chest X-Ray 08/11/20 09:33 IMPRESSION: No active disease. Electronically Signed: Nelson Sorensen MD at 10:12 EDT Tel , Service support , Discharge Plan Triage Chief Complaint: Syncope ED Provider: Miguel Michel Dx/Rx/DC Orders Instructions: ED Near-Fainting, Uncertain Cause Prescriptions: No Action (DME) Handicap Kandace See Rx Instructions .Route .MEDSUPPLY Qty: 1 RF: 0 albuterol sulfate 2.5 mg /3 mL (0.083 %) solution for nebulization 2.5 mg INHALATION Q4H PRN (Reason: shortness of breath or wheezing) Qty: 90 RF: 3 hydrocortisone 2.5 % cream 1 applic TOPICAL BID PRN (Reason: rash) Qty: 28 RF: 1 furosemide 40 mg tablet 40 mg PO BID RF: 0 dulaglutide 3 mg/0.5 mL pen injector 3 mg SC QWEEK 60 Days Qty: 4.5 RF: 1 metformin 1,000 mg tablet 1,000 mg PO BID 90 Days Qty: 180 RF: 2 magnesium oxide 400 mg magnesium tablet 400 mg PO QHS Qty: 90 RF: 2 potassium chloride 40 mEq/15 mL liquid 40 meq PO BID 90 Days Qty: 2700 RF: 2 vqphtzli-rni-vako-FA-lutein 1 EACH tablet 1 tablet PO DAILY RF: 0 carvedilol 25 MG tablet 37.5 mg PO BID RF: 0 ketoconazole 120 ML shampoo 1 applic TOPICAL 2XW RF: 0 diltiazem HCl 120 MG capsule,extended release 24hr 120 mg PO BID RF: 0 digoxin 125 MCG tablet 125 mcg PO DAILY RF: 0 amitriptyline 100 MG tablet 25 mg PO QHS RF: 0 lisinopril 2.5 MG tablet 2.5 mg PO DAILY RF: 0 duloxetine 60 MG capsule,delayed release(DR/EC) 60 mg PO BID RF: 0 insulin glargine 100 UNITS/ML insulin pen 45 unit SC QPM RF: 0 mecobalamin (vitamin B12) 1,000 MCG tablet,chewable 1,000 mcg PO DAILY RF: 0 albuterol sulfate [ProAir HFA] 90 mcg/actuation HFA aerosol inhaler 1 - 2 puff INHALATION Q6H PRN (Reason: shortness of breath or wheezing) Qty: 8.5 RF: 1 aspirin 81 mg tablet,delayed release (DR/EC) 81 mg PO DAILY@0800 Qty: 90 RF: 3 cholecalciferol (vitamin D3) 50 mcg (2,000 unit) capsule 2,000 unit PO DAILY Qty: 90 RF: 3 gabapentin 800 mg tablet 800 mg PO TID Qty: 270 RF: 2 melatonin 10 mg tablet 10 mg PO QHS Qty: 30 RF: 3 rosuvastatin [Crestor] 10 mg tablet 10 mg PO DAILY Qty: 90 RF: 1 omeprazole 40 mg capsule,delayed release(DR/EC) 40 mg PO DAILY Qty: 90 RF: 3 Primary Care Provider: Nevaeh Oconnor Referrals: Nevaeh Oconnor MD [Primary Care Provider] - Disposition Disposition: Home, self care Discharge Date/Time: 08/11/20 12:01
--- NOTE | 2020-08-11 07:42 | US_ITS ---
STUDY: SUPERFICIAL ULTRASOUND - CHEST REASON FOR EXAM: Female, 44 years old. cough TECHNIQUE: A superficial ultrasound was performed with real-time and static marquez-scale imaging. COMPARISON: None. FINDINGS: Multiple longitudinal and transverse ultrasound images of both sides of the chest fail to demonstrate a sizable pleural effusion. US/Chest IMPRESSION: No sizable pleural effusion. Electronically Signed: Nelson Sorensen MD at 10:08 EDT Tel , Service support ,
[2020-08-11] MEDS: Ondansetron 4 MG/2 ML Vial IV (07:46)
[2020-08-11] MEDS: Morphine 4 MG/ML Syringe IV (07:46)
[2020-08-11 07:50] LABS: Absolute Lymphocyte Count 3.09 X10^3/uL (0.83-4.51); Absolute Neutrophil Count 13.9 X10^3/uL (2.0-7.7); Basophil# 0.05 X10^3/uL; Basophil% 0.3 % (0-1); Eosinophil# 0.05 X10^3/uL; Eosinophils% 0.3 % (0-5); Hematocrit 41.6 % (37-47); Hemoglobin 13.7 g/dL (12.0-15.0); Lymphocyte # 3.09 X10^3/ul (0.83-4.51); Lymphocyte % 16.1 % (19-41); Mean Corp Hgb Conc 32.9 g/dL (32-36); Mean Corpuscular Hgb 28.5 pg (27.0-32.0); Mean Corpuscular Volume 86.5 fL (81-99); Mean Platelet Vol. 10.6 fl (6.2-12.0); Monocyte# 1.95 X10^3/uL; Monocyte% 10.2 % (0-10); NRBC Flagged by Analyzer 0 % (0-5); Neutrophil # 13.94 X10^3/uL (2.7-7.7); Neutrophil % 72.4 % (47-70); POSITIVE DIFFERENTIAL YES; Platelet Count 228 K/mm3 (150-450); RBC Distribution Width CV 12.7 % (11.6-14.6); Red Blood Count 4.81 M/mm3 (4.2-5.4); White Blood Count 19.2 K/mm3 (4.4-11.0)
[2020-08-11 07:51] LABS: Differential Indicated SCAN CRITERIA MET
[2020-08-11 08:12] LABS: ALB/GLOB Ratio 0.6 RATIO (0.9-2.4); AST(SGOT) 26 U/L (15-37); Alanine Aminotransfer ALT/SGPT 33 U/L (13-56); Albumin, Serum 2.7 g/dL (3.2-5.0); Alkaline Phosphatase 181 U/L (45-117); Anion Gap 8 (5-15); BUN 9 mg/dL (7-18); BUN/Creat Ratio 12.4 RATIO (10-20); Calcium,Total 8.6 mg/dL (8.5-10.1); Chloride 93 mmol/L (98-107); Creatinine, Serum 0.72 mg/dL (0.55-1.02); EST Glomerular Filtration Rate 94 mL/min (>60); Est Glom Filt Rate - Afr Amer 113 mL/min (>60); Estimated Creatinine Clearance 76.81 ml/min; Globulin 4.7 g/dL (2.2-4.2); Glucose 331 mg/dL (74-106); Potassium 3.4 mmol/L (3.5-5.1); Protein, Total 7.4 g/dL (6.4-8.2); Sodium Level 131 mmol/L (136-145)
--- NOTE | 2020-08-11 08:29 | ED.RN ---
pacemaker interegated at this time. [employer] called. rep to return call with reading. pt updated. rn will continue to monitor the patient.
[2020-08-11 09:00] VITALS: BP 93/71; PULSE 106; RESP 16
[2020-08-11 09:01] VITALS: BP 92/74; BP 93/71; BP 95/70; PULSE 106; PULSE 108; PULSE 112
[2020-08-11 09:18] LABS: BNP,B-Type NATRIURETIC PEPTIDE 39.3 pg/mL (0-100)
[2020-08-11 09:24] LABS: Color, Urine Yellow (Yellow); Glucose, Dipstick 250 mg/dl (Normal); Ketone-Dipstick Negative (Negative); Leukocyte Esterase-Dipstick 100 /ul (Negative); Nitrite-Dipstick Negative (Negative); Occult Blood-Urine 10 /ul (Negative); Protein-Dipstick 15 mg/dl (Negative); Specific Gravity, Urine 1.005 (1.002-1.030); Urine Bilirubin Dipstick Negative (Negative); Urine Clarity Clear (Clear); Urine Urobilinogen Normal (Normal)
[2020-08-11 09:32] LABS: Bacteria RARE /hpf (None Seen); Mucous, Urine RARE /hpf (<or=2+); Red Blood Cells-Urine 0-5 SEEN /hpf (0-5); Squamous Epithelial Cells - UA 0-5 SEEN /hpf (5-10); White Blood Cells 5-10 SEEN /hpf (0-5)
--- NOTE | 2020-08-11 09:33 | RAD_ITS ---
STUDY: X-RAY CHEST REASON FOR EXAM: Female, 44 years old. fever TECHNIQUE: Single AP portable view of the chest. COMPARISON: 11/16/2019 FINDINGS: Left subclavian single lead AICD. The lungs are clear and expanded. There is no demonstrated pleural abnormality. Normal size heart. Normal mediastinum and paulette. Normal visualized pulmonary arteries. Normal visualized aortic arch and descending thoracic aorta. There is a dextroscoliosis of the thoracic spine. Normal visualized ribs, clavicles, and shoulders. There is no demonstrated abnormality of the visualized soft tissue structures of the upper abdomen. RAD/Chest 1 View (Portable) IMPRESSION: No active disease. Electronically Signed: Nelson Sorensen MD at 10:12 EDT Tel , Service support ,
[2020-08-11 11:58] VITALS: BP 99/71; PULSE 98; RESP 20; O2SAT 94
[2020-08-12 10:10] LABS: Pathologist Review Reviewed
== END 2020-08-11 12:01 | disposition home or self-care (01) ==
LOC: ED 08:27
PROVIDERS: Emergency Provider Student in an Organized Health Care Education/Training Program; PCP Internal Medicine
DX: R55 Syncope and collapse (principal); D72.829 Elevated white blood cell count, unspecified; E11.65 Type 2 diabetes mellitus with hyperglycemia; M19.90 Unspecified osteoarthritis, unspecified site; I42.0 Dilated cardiomyopathy; I11.0 Hypertensive heart disease with heart failure; I50.22 Chronic systolic (congestive) heart failure; E78.5 Hyperlipidemia, unspecified; E66.01 Morbid (severe) obesity due to excess calories; F32.9 Major depressive disorder, single episode, unspecified; F41.9 Anxiety disorder, unspecified; E11.40 Type 2 diabetes mellitus with diabetic neuropathy, unspecified; G47.33 Obstructive sleep apnea (adult) (pediatric); G47.00 Insomnia, unspecified; Z68.39 Body mass index [BMI] 39.0-39.9, adult; Z95.0 Presence of cardiac pacemaker; Z79.4 Long term (current) use of insulin; Z79.82 Long term (current) use of aspirin; Z79.899 Other long term (current) drug therapy
CPT/HCPCS: 71045; 74177; 76604; 80053; 81001; 83880; 84484; 85025; 87426; 93005; 96374; 96375; 99284; Q9967; A4216; J2405

== ENCOUNTER 2020-11-24 17:39 | Emergency (ER) | payer OTHER, SELFPAY ==
[2020-11-24 17:40] VITALS: BP 118/81; PULSE 127; RESP 18; TEMP 36.5; O2SAT 94; BMI 37.5
[2020-11-24 18:26] VITALS: O2SAT 94
--- NOTE | 2020-11-24 18:26 | EKG12_ITS ---
Test Reason : DYSRHYTHMIA Blood Pressure : / mmHG Vent. Rate : 119 BPM Atrial Rate : 119 BPM P-R Int : 146 ms QRS Dur : 094 ms QT Int : 336 ms P-R-T Axes : 013 -04 030 degrees QTc Int : 472 ms Sinus tachycardia Nonspecific [address] and T wave abnormality Abnormal ECG Confirmed by NIRALI ORLANDO, GELACIO ([id number]), video effects editor LADONNA BOWMAN ([id number]) on 11/26/2020 9:53:35 AM Referred By: [email or web address] Confirmed By:GELACIO CAMPOVERDE MD
--- NOTE | 2020-11-24 18:27 | EDS_ITS ---
HPI History of Present Illness Chief Complaint: Shortness of Breath Detail of Chief Complaint: Nausea, vomiting, diarrhea and fatigue. Informant: patient Onset/Context/Timing Onset: Days Context: Gradual Onset Timing: Intermittent Current Severity: Mild Maximum Severity: Mild Narrative Narrative: 44-year-old female history of pacemaker defibrillator, hypertension and diabetes. Patient states she has been tired since last . Defibrillator fired at 3:00 this morning. She is also had recent cough with nausea, vomiting and diarrhea. Fever or chills. States she was vaccinated and had a negative Covid test 2 months ago. She denies any recent sensation. She denies any dysuria. Prior similar symptoms: No Recent Illness/Hospitalization: No PFSH [facility] Medical History Abdominal panniculus, symptomatic Abscess of maxilla Anxiety and depression Arthritis Cardiomyopathy, dilated, nonischemic Chronic systolic (congestive) heart failure Dentalgia Diverticulitis Essential hypertension Facial cellulitis History of MRSA infection Hyperlipidemia IBS (irritable bowel syndrome) Insomnia Lupus Migraines Morbid obesity due to excess calories Neuropathy Neuropathy Nonhealing surgical wound Obesity Open wound of abdominal wall with complication Open wound of neck with complication ANA (obstructive sleep apnea) ANA on CPAP Syncope (08/07/20) Tachycardia Type 2 diabetes mellitus Type 2 diabetes mellitus without complication Home Medications [id number] 1 tablet PO DAILY 05/30/19 [History Last Taken 06/18/20 08:00] Handicap Placard #1 ea 06/06/19 [Rx Last Taken Unknown] albuterol sulfate 2.5 mg INHALATION Q4H PRN #90 ml 06/06/19 [Rx Last Taken Unknown] hydrocortisone 2.5 % topical cream 1 applic TOPICAL BID PRN #28 gm 09/11/19 [Rx Last Taken 06/13/20] albuterol sulfate 90 mcg/actuation aerosol inhaler 1 - 2 puff INHALATION Q6H PRN #8.5 gm 05/06/20 [Rx Last Taken Unknown] aspirin 81 mg tablet,delayed release 81 mg PO DAILY@0800 #90 tablet 05/06/20 [Rx Last Taken 06/18/20 08:00] cholecalciferol (vitamin D3) 50 mcg (2,000 unit) capsule 2,000 unit PO DAILY #90 cap 05/06/20 [Rx Last Taken 06/18/20 08:00] gabapentin 800 mg tablet 800 mg PO TID #270 tablet 05/06/20 [Rx Last Taken 06/18/20 08:00] melatonin 10 mg tablet 10 mg PO QHS #30 tablet 05/06/20 [Rx Last Taken 06/17/20 21:00] furosemide 40 mg tablet 40 mg PO BID tablet 05/23/20 [History Last Taken 06/18/20 08:00] amitriptyline 25 mg PO QHS 06/18/20 [History Last Taken 06/17/20 21:00] carvedilol 37.5 mg PO BID 06/18/20 [History Last Taken 06/18/20 08:00] digoxin 125 mcg PO DAILY 06/18/20 [History Last Taken 06/18/20 08:00] diltiazem HCl 120 mg PO BID 06/18/20 [History Last Taken 06/18/20 08:00] duloxetine 60 mg PO BID 06/18/20 [History Last Taken 06/18/20 08:00] insulin glargine 45 unit SC QPM 06/18/20 [History Last Taken 06/17/20 21:00] ketoconazole 1 applic TOPICAL 2XW 06/18/20 [History Last Taken 06/18/20 11:02] lisinopril 2.5 mg PO DAILY 06/18/20 [History Last Taken 06/18/20 08:00] rosuvastatin 10 mg tablet 10 mg PO DAILY #90 tablet 06/19/20 [Rx Last Taken Un known] dulaglutide 3 mg/0.5 mL subcutaneous pen injector 3 mg SC QWEEK 60 Days #4.5 ml 07/04/20 [Rx Last Taken Unknown] magnesium oxide 400 mg PO QHS #90 tablet 07/04/20 [Rx Last Taken Unknown] metformin 1,000 mg tablet 1,000 mg PO BID 90 Days #180 tablet 07/04/20 [Rx Last Taken Unknown] omeprazole 40 mg capsule,delayed release 40 mg PO DAILY #90 cap 07/28/20 [Rx Last Taken Unknown] potassium chloride 40 mEq/15 mL oral liquid 40 meq PO BID 90 Days #2700 ml 09/04/20 [Rx Last Taken Unknown] mecobalamin (vitamin B12) 1,000 mcg chewable tablet 1,000 mcg PO DAILY #30 tab 09/30/20 [Rx Last Taken Unknown] blood-glucose meter #1 ea 11/19/20 [Rx Last Taken Unknown] lancets #100 ea 11/19/20 [Rx Last Taken Unknown] blood sugar diagnostic #100 ea 11/20/20 [Rx Last Taken Unknown] Allergy/AdvReac Type Severity Reaction Status Date / Time pregabalin [From Lyrica] Allergy Other Verified 11/24/20 17:42 sulfamethoxazole Allergy Rash Verified 11/24/20 17:42 [From Bactrim] tramadol HCl [From Ultram] Allergy Swelling Verified 11/24/20 17:42 trimethoprim [From Bactrim] Allergy Rash Verified 11/24/20 17:42 vancomycin Allergy Swelling Verified 11/24/20 17:42 Family History Other Arthritis Breast cancer CVA (cerebral vascular accident) Depression Diabetes Heart disease Hyperlipemia Hypertension Kidney disease Thyroid disorder Surgical History History of cholecystectomy History of dental surgery History of hysterectomy History of implantable cardiac defibrillator (ICD) (11/15/19) History of left heart catheterization (06/01/19) History of neck surgery navel removal Social History Smoking Status: Never smoker alcohol intake: never substance use type: does not use caffeine: No what type of physical activity do you participate in: none ROS ROS ED ROS Narrative Nausea, vomiting, diarrhea. Generalized weakness. Fatigue. Fever and chills. Review of Systems ROS Unobtainable: Denies due to encephalopathy Constitutional Constitutional ED: Reports chills and fever(s) Eyes Eyes: Denies change in vision ENT ENT ED: Denies ear pain or sore throat Cardiovascular Cardiovascular: Denies chest pain Respiratory/Chest Respiratory/Chest: Reports cough and dyspnea; Denies sputum Gastrointestinal Gastrointestinal: Reports diarrhea, nausea and vomiting; Denies abdominal pain Genitourinary Genitourinary ED: Denies dysuria or hematuria Musculoskeletal Musculoskeletal: Denies myalgias Integumentary Denies rash Neurologic Neurologic: Denies headache(s) Psychiatric Psychiatric: Denies depression Endocrine Endocrinology: Denies polyuria Allergic/Immunologic Allergic/Immunologic ED: Denies urticaria EXAM Physical Exam Narrative Exam Narrative: Middle-aged female no acute distress. Pulse ox 94% on room air. Does not look septic or toxic. HEENT exam unremarkable. Moist with memories. Neck nontender no lymphadenopathy. Lungs clear to auscultation bilaterally. Heart regular rhythm rate about 110 no murmur. Chest wall nontender. Abdomen soft nontender. Moving all 4 extremities. No edema. Back nontender. Neurologically awake alert with no focal motor deficits. Const Vital Signs: 11/24/20 17:40 11/24/20 18:26 11/24/20 18:40 Temperature 97.7 F L Temperature Source Temporal Pulse Rate 127 H 117 H Respiratory Rate 18 20 H Respiratory Effort Respiratory Depth Respiratory Pattern Blood Pressure 118/81 H 125/101 H Blood Pressure Mean 93 109 Pulse Ox 94 94 95 Oxygen Delivery Method Room Air Room Air Room Air 11/24/20 18:43 Temperature Temperature Source Pulse Rate Respiratory Rate Respiratory Effort Normal Respiratory Depth Normal Respiratory Pattern Normal Blood Pressure Blood Pressure Mean Pulse Ox Oxygen Delivery Method Room Air Positive well nourished and well developed; Negative for obese, cachectic, contractures or unkempt General Appearance ED: well developed and NAD; Negative for unkempt, cachectic or contractures Nutritional Appearance: Negative for cachectic or obese HEENT Reports moist mucous membranes Negative for trauma or tenderness Eyes PERRL and EOMs intact bilaterally General Eye ED: Negative for pale conjunctiva Neck no lymphadenopathy, supple and no JVD General: Negative for tenderness Chest Wall inspection of chest normal and palpation of chest normal Resp normal respiratory effort and clear to auscultation bilaterally Cardio regular rhythm, S1 normal heart sound, S2 normal heart sound and no murmurs Rate: tachycardic GI normal to inspection, nondistended, normoactive bowel sounds, non-tender and non-distended Auscultation: normoactive bowel sounds Palpation: soft Back/Spine no CVA tenderness General Back: Negative for CVA tenderness Extremity normal to inspection General Extremety ED: Negative for edema or tenderness General Extremity: Negative for edema Neuro oriented x3 and CN's II-XII intact bilaterally Sensorium / Orientation: alert; Negative for orientation impaired, lethargic or stuporous Motor Exam: strength 5/5 throughout Psych mental status grossly normal Appearance: Negative for unkempt Skin no rashes or lesions noted and no wounds MDM MDM MDM Narrative Medical decision making narrative: Right female with fatigue, generalized weakness, nausea, vomiting, diarrhea and fever. Also defibrillator fired this morning. Undergo cardiac work-up plus Covid test. She will be treated with IV fluids as she states she feels dehydrated. Repeat exam patient is doing well at 9:03 PM. I spoke with the patient's environmental scientist Dr. Danny Higginbotham. His office will follow up as an outpatient tomorrow. We will send a magnesium level per his request. Lab Data Attestation: I reviewed the patient's lab results. Lab results narrative: CBC White count of 10. Hemoglobin 14.9. Chemistries sodium 131. Gap of 6 normal creatinine 0.7. Glucose 401. Troponin normal at 7. Portable chest x-ray 1 view interpreted by myself and radiologist shows no acute abnormality. Covid test was negative. Labs: Laboratory Results - last 24 hr 11/24/20 11/24/20 18:39 18:39 WBC 10.7 RBC 5.40 Hgb 14.9 Hct 47.5 H MCV 88.0 MCH 27.6 MCHC 31.4 L RDW Std Deviation 43.6 RDW Coeff of Zeny 13.5 Plt Count 264 MPV 11.1 Immature Gran % (Auto) 0.700 Neut % (Auto) 59.6 Lymph % (Auto) 26.6 [place] % (Auto) 11.6 H Eos % (Auto) 0.8 Baso % (Auto) 0.7 Absolute Neuts (auto) 6.4 Absolute Lymphs (auto) 2.85 Nucleated RBC % 0 Sodium 131 L Potassium 3.8 Chloride 95 L Carbon Dioxide 30.0 Anion Gap 6 BUN 11 Creatinine 0.74 Estim Creat Clear Calc 74.73 Est GFR (MDRD) Af Amer 110 Est GFR (MDRD) Non-Af 91 BUN/Creatinine Ratio 14.9 Glucose 401 H Calcium 9.5 Troponin I High Sens 7 Radiography Chest X-Ray - ED: 1 View, Read by ED Physician, Read by Radiologist, Normal, Heart, Lungs, Mediastinum, Bony Structures and No Acute Disease Diagnostic Testing: Radiology Impression Chest X-Ray 11/24/20 18:50 IMPRESSION: No acute cardiopulmonary disease or interval change. Electronically Signed: Sushant Dillon DO at 19:15 EDT Tel [phone], Service support , Left-sided pacemaker defibrillator. No acute abnormalities. Interpreted both by myself and the radiologist. Rhythm Strip Rhythm Strip: Sinus Tach Rate: 119 Ectopy: None EKG Initial EKG: Attestation: I personally reviewed and interpreted this EKG as follows: Interpretation: Sinus Rhythm and No Acute Injury Pattern Comments: Sinus tachycardia rate of 119 no acute signs of [place] or ischemia. Discharge Plan Triage Chief Complaint: Shortness of Breath ED Provider: Bg Loera Dx/Rx/DC Orders Clinical Impression: Type 2 diabetes mellitus, ICD (implantable cardioverter-defibrillator) discharge, Generalized weakness, Acute hyperglycemia Instructions: ED Weakness (Uncertain Cause) Prescriptions: No Action (DME) Handicap Placard See Rx Instructions .Route .MEDSUPPLY Qty: 1 RF: 0 albuterol sulfate 2.5 mg /3 mL (0.083 %) solution for nebulization 2.5 mg INHALATION Q4H PRN (Reason: shortness of breath or wheezing) Qty: 90 RF: 3 hydrocortisone 2.5 % cream 1 applic TOPICAL BID PRN (Reason: rash) Qty: 28 RF: 1 furosemide 40 mg tablet 40 mg PO BID RF: 0 dulaglutide 3 mg/0.5 mL pen injector 3 mg SC QWEEK 60 Days Qty: 4.5 RF: 1 metformin 1,000 mg tablet 1,000 mg PO BID 90 Days Qty: 180 RF: 2 magnesium oxide 400 mg magnesium tablet 400 mg PO QHS Qty: 90 RF: 2 eavfobpt-uzq-pvrz-FA-lutein 1 EACH tablet 1 tablet PO DAILY RF: 0 carvedilol 25 MG tablet 37.5 mg PO BID RF: 0 ketoconazole 120 ML shampoo 1 applic TOPICAL 2XW RF: 0 diltiazem HCl 120 MG capsule,extended release 24hr 120 mg PO BID RF: 0 digoxin 125 MCG tablet 125 mcg PO DAILY RF: 0 amitriptyline 100 MG tablet 25 mg PO QHS RF: 0 lisinopril 2.5 MG tablet 2.5 mg PO DAILY RF: 0 duloxetine 60 MG capsule,delayed release(DR/EC) 60 mg PO BID RF: 0 insulin glargine 100 UNITS/ML insulin pen 45 unit SC QPM RF: 0 albuterol sulfate [ProAir HFA] 90 mcg/actuation HFA aerosol inhaler 1 - 2 puff INHALATION Q6H PRN (Reason: shortness of breath or wheezing) Qty: 8.5 RF: 1 aspirin 81 mg tablet,delayed release (DR/EC) 81 mg PO DAILY@0800 Qty: 90 RF: 3 cholecalciferol (vitamin D3) 50 mcg (2,000 unit) capsule 2,000 unit PO DAILY Qty: 90 RF: 3 gabapentin 800 mg tablet 800 mg PO TID Qty: 270 RF: 2 melatonin 10 mg tablet 10 mg PO QHS Qty: 30 RF: 3 rosuvastatin [Crestor] 10 mg tablet 10 mg PO DAILY Qty: 90 RF: 1 omeprazole 40 mg capsule,delayed release(DR/EC) 40 mg PO DAILY Qty: 90 RF: 3 potassium chloride 40 mEq/15 mL liquid 40 meq PO BID 90 Days Qty: 2700 RF: 2 mecobalamin (vitamin B12) 1,000 mcg tablet,chewable 1,000 mcg PO DAILY Qty: 30 RF: 0 (DME) blood-glucose meter Misc See Rx Instructions .ROUTE .MEDSUPPLY Qty: 1 RF: 0 (DME) lancets Misc See Rx Instructions .ROUTE .MEDSUPPLY Qty: 100 RF: 3 (DME) Blood Glucose Test Strip See Rx Instructions .ROUTE .MEDSUPPLY Qty: 100 RF: 3 Primary Care Provider: Nevaeh Oconnor Referrals: Danny Higginbotham MD [STAFF PHYSICIAN] - 1 Day Nevaeh Oconnor MD [Primary Care Provider] - Activity Restrictions/Additional Instructions: Blood sugar at home and take your medications prior to going to sleep. Check your first thing in the morning. Call and follow-up with Dr. Danny Higginbotham's office tomorrow. Disposition Disposition: Home, Self Care
[2020-11-24] MEDS: 0.9% Normal Saline 1,000 ML 999 ML IV (18:39)
[2020-11-24 18:40] VITALS: BP 125/101; PULSE 117; RESP 20; O2SAT 95
[2020-11-24 18:43] VITALS: O2SAT 94
[2020-11-24 18:48] LABS: Absolute Lymphocyte Count 2.85 X10^3/uL (0.83-4.51); Absolute Neutrophil Count 6.4 X10^3/uL (2.0-7.7); Basophil# 0.07 X10^3/uL; Basophil% 0.7 % (0-1); Eosinophil# 0.09 X10^3/uL; Eosinophils% 0.8 % (0-5); Hematocrit 47.5 % (37-47); Hemoglobin 14.9 g/dL (12.0-15.0); Lymphocyte # 2.85 X10^3/ul (0.83-4.51); Lymphocyte % 26.6 % (19-41); Mean Corp Hgb Conc 31.4 g/dL (32-36); Mean Corpuscular Hgb 27.6 pg (27.0-32.0); Mean Platelet Vol. 11.1 fl (6.2-12.0); Monocyte# 1.24 X10^3/uL; Monocyte% 11.6 % (0-10); NRBC Flagged by Analyzer 0 % (0-5); Neutrophil % 59.6 % (47-70); Platelet Count 264 K/mm3 (150-450); RBC Distribution Width CV 13.5 % (11.6-14.6); RBC Distribution Width SD 43.6 fl (35.1-43.9); White Blood Count 10.7 K/mm3 (4.4-11.0)
--- NOTE | 2020-11-24 18:50 | RAD_ITS ---
STUDY: X-RAY CHEST REASON FOR EXAM: Female, 44 years old. Chest pain. TECHNIQUE: Single AP portable view of the chest. COMPARISON: 08/11/2020. FINDINGS: The lungs are clear and expanded. There is no demonstrated pleural abnormality. Normal size heart. Stable cardiac pacemaker/ICD. Normal mediastinum and paulette. Normal visualized pulmonary arteries. Normal visualized aortic arch and descending thoracic aorta. Stable dextroscoliosis of the thoracic spine. Normal visualized ribs, clavicles, and shoulders. There is no demonstrated abnormality of the visualized soft tissue structures of the upper abdomen. RAD/Chest 1 View (Portable) IMPRESSION: No acute cardiopulmonary disease or interval change. Electronically Signed: Sushant Dillno DO at 19:15 EDT Tel [phone], Service support ,
[2020-11-24 19:08] LABS: Anion Gap 6 (5-15); BUN 11 mg/dL (7-18); BUN/Creat Ratio 14.9 RATIO (10-20); Calcium,Total 9.5 mg/dL (8.5-10.1); Chloride 95 mmol/L (98-107); Creatinine, Serum 0.74 mg/dL (0.55-1.02); EST Glomerular Filtration Rate 91 mL/min (>60); Est Glom Filt Rate - Afr Amer 110 mL/min (>60); Estimated Creatinine Clearance 74.73 ml/min; Glucose 401 mg/dL (74-106); Potassium 3.8 mmol/L (3.5-5.1); Sodium Level 131 mmol/L (136-145); Troponin-I HS 7 pg/mL (3.0-54.0)
[2020-11-24 21:29] VITALS: BP 126/90; PULSE 106; RESP 18; O2SAT 95
== END 2020-11-24 21:30 | disposition home or self-care (01) ==
PROVIDERS: Emergency Provider Emergency Medicine; PCP Internal Medicine
DX: E11.65 Type 2 diabetes mellitus with hyperglycemia (principal); Z95.810 Presence of automatic (implantable) cardiac defibrillator; R53.1 Weakness; E11.40 Type 2 diabetes mellitus with diabetic neuropathy, unspecified; E78.5 Hyperlipidemia, unspecified; G47.33 Obstructive sleep apnea (adult) (pediatric); I11.0 Hypertensive heart disease with heart failure; I50.22 Chronic systolic (congestive) heart failure; Z79.4 Long term (current) use of insulin; Z79.82 Long term (current) use of aspirin; Z79.899 Other long term (current) drug therapy; Z86.14 Personal history of Methicillin resistant Staphylococcus aureus infection
CPT/HCPCS: 71045; 80048; 83735; 84484; 85025; 87426; 93005; 96360; 96361; 99284; J7030

== ENCOUNTER → 2020-12-10 09:26 | Outpatient (CLI) | payer OTHER, SELFPAY ==
[2020-12-10 11:17] LABS: Digoxin Level 0.74 ng/mL (0.80-2.00)
[2020-12-10 11:18] LABS: ALB/GLOB Ratio 0.6 RATIO (0.9-2.4); AST(SGOT) 38 U/L (15-37); Alanine Aminotransfer ALT/SGPT 43 U/L (13-56); Albumin, Serum 3.3 g/dL (3.2-5.0); Alkaline Phosphatase 114 U/L (45-117); Anion Gap 11 (5-15); BUN 12 mg/dL (7-18); BUN/Creat Ratio 13.1 RATIO (10-20); Calcium,Total 8.9 mg/dL (8.5-10.1); Chloride 87 mmol/L (98-107); Creatinine, Serum 0.92 mg/dL (0.55-1.02); EST Glomerular Filtration Rate 71 mL/min (>60); Est Glom Filt Rate - Afr Amer 86 mL/min (>60); Globulin 5.6 g/dL (2.2-4.2); Glucose 267 mg/dL (74-106); Magnesium 1.4 mg/dL (1.6-2.6); Potassium 2.7 mmol/L (3.5-5.1); Protein, Total 8.9 g/dL (6.4-8.2); Sodium Level 133 mmol/L (136-145)
== END ==
PROVIDERS: PCP Internal Medicine; Referring Provider Nurse Practitioner Family; Visit Provider Nurse Practitioner Family
DX: R00.0 Tachycardia, unspecified (principal); R06.00 Dyspnea, unspecified; R11.0 Nausea; R53.1 Weakness; E78.2 Mixed hyperlipidemia; I42.0 Dilated cardiomyopathy; Z95.810 Presence of automatic (implantable) cardiac defibrillator
CPT/HCPCS: 36415; 80053; 80162; 83735; 83880

== ENCOUNTER → 2020-12-18 13:02 | Outpatient (CLI) | payer OTHER, SELFPAY ==
[2020-12-18 14:03] LABS: Anion Gap 10 (5-15); BUN 10 mg/dL (7-18); BUN/Creat Ratio 11.9 RATIO (10-20); Chloride 92 mmol/L (98-107); Creatinine, Serum 0.84 mg/dL (0.55-1.02); EST Glomerular Filtration Rate 79 mL/min (>60); Est Glom Filt Rate - Afr Amer 95 mL/min (>60); Glucose 396 mg/dL (74-106); Potassium 2.8 mmol/L (3.5-5.1); Sodium Level 136 mmol/L (136-145)
== END ==
PROVIDERS: PCP Internal Medicine; Referring Provider Nurse Practitioner Family; Visit Provider Nurse Practitioner Family
DX: E87.6 Hypokalemia (principal)
CPT/HCPCS: 36415; 80048

== ENCOUNTER → 2021-08-11 | Outpatient (CLI) | payer MEDICAID, SELFPAY ==
[2021-08-11 15:23] LABS: Absolute Lymphocyte Count 3.04 X10^3/uL (0.83-4.51); Absolute Neutrophil Count 5.7 X10^3/uL (2.0-7.7); Basophil# 0.03 X10^3/uL; Basophil% 0.3 % (0-1); Eosinophils% 2.1 % (0-5); Hematocrit 46.3 % (37-47); Hemoglobin 14.7 g/dL (12.0-15.0); Lymphocyte # 3.04 X10^3/ul (0.83-4.51); Lymphocyte % 31.4 % (19-41); Mean Corp Hgb Conc 31.7 g/dL (32-36); Mean Corpuscular Hgb 28.3 pg (27.0-32.0); Mean Platelet Vol. 11.3 fl (6.2-12.0); Monocyte# 0.65 X10^3/uL; Monocyte% 6.7 % (0-10); NRBC Flagged by Analyzer 0 % (0-5); Neutrophil # 5.73 X10^3/uL (2.7-7.7); Neutrophil % 59.1 % (47-70); Platelet Count 293 K/mm3 (150-450); White Blood Count 9.7 K/mm3 (4.4-11.0)
[2021-08-11 15:41] LABS: ALB/GLOB Ratio 0.8 RATIO (0.9-2.4); AST(SGOT) 34 U/L (15-37); Alanine Aminotransfer ALT/SGPT 38 U/L (13-56); Albumin, Serum 3.4 g/dL (3.2-5.0); Alkaline Phosphatase 114 U/L (45-117); Anion Gap 8 (5-15); BUN 12 mg/dL (7-18); BUN/Creat Ratio 17.8 RATIO (10-20); Calcium,Total 9.5 mg/dL (8.5-10.1); Chloride 102 mmol/L (98-107); Cholesterol 93 mg/dL (200); Creatinine, Serum 0.67 mg/dL (0.55-1.02); EST Glomerular Filtration Rate 101 mL/min (>60); Est Glom Filt Rate - Afr Amer 123 mL/min (>60); Globulin 4.1 g/dL (2.2-4.2); Glucose 304 mg/dL (74-106); High Density Lipoprotein 36 mg/dL; Protein, Total 7.5 g/dL (6.4-8.2); Sodium Level 137 mmol/L (136-145); Triglycerides 167 mg/dL; Very Low Density Lipoprotein 33 mg/dL (5-40)
[2021-08-11 15:50] LABS: Magnesium 1.6 mg/dL (1.6-2.6); Thyroid Stim Hormone (TSH) 1.51 uIU/mL (0.358-3.74)
[2021-08-11 16:13] LABS: BNP,B-Type NATRIURETIC PEPTIDE 11.6 pg/mL (0-100)
== END | disposition home or self-care (01) ==
LOC: BIMLAB 13:36
PROVIDERS: Nurse Practitioner Family; PCP Internal Medicine; Referring Provider Internal Medicine; Visit Provider Internal Medicine
DX: I11.0 Hypertensive heart disease with heart failure (principal); I50.22 Chronic systolic (congestive) heart failure; E11.42 Type 2 diabetes mellitus with diabetic polyneuropathy; Z79.4 Long term (current) use of insulin; R60.0 Localized edema; R53.83 Other fatigue; R53.1 Weakness; R00.0 Tachycardia, unspecified
CPT/HCPCS: 36415; 80053; 80061; 83735; 83880; 84436; 84443; 85025

== ENCOUNTER 2021-10-02 15:46 | Emergency (ER) | payer MEDICAID, SELFPAY ==
[2021-10-02 15:47] VITALS: BP 135/97; PULSE 119; RESP 18; TEMP 36.5; O2SAT 97; BMI 35.1
[2021-10-02 16:02] LABS: Mucous, Urine 0 SEEN /hpf (<or=2+)
[2021-10-02 16:09] LABS: Color, Urine Brown (Yellow); Glucose, Dipstick 100 mg/dl (Normal); Ketone-Dipstick 15 mg/dl (Negative); Leukocyte Esterase-Dipstick 500 /ul (Negative); Nitrite-Dipstick Negative (Negative); Occult Blood-Urine 250 /ul (Negative); Protein-Dipstick 100 mg/dl (Negative); Specific Gravity, Urine 1.025 (1.002-1.030); Urine Clarity Cloudy (Clear); Urine Urobilinogen Normal (Normal)
--- NOTE | 2021-10-02 16:09 | EX.ED.DYSGE1 ---
HPI History of Present Illness Chief Complaint: Flank Pain Informant: patient Onset/Context/Timing Onset: Yesterday Context: Sudden Onset Timing: Continuous Quality: Stabbing Location: Left flank Worsened by: Nothing Relieved by: Nothing Narrative Narrative: Patient presents with hematuria and left flank pain that began yesterday. Patient states it began rather suddenly last night. Patient states it has been constant. Patient states she is urinating red blood. Patient states she is also having some pain over her left flank area. Patient describes it as stabbing. Patient states nothing makes it better and nothing makes it worse. Patient denies any fevers or chills. Patient admits to nausea but denies any vomiting. Patient denies any dysuria. Patient denies any urinary frequency. PFSH [facility] Medical History Abdominal panniculus, symptomatic Abscess of maxilla Anxiety and depression Arthritis Cardiomyopathy, dilated, nonischemic Chronic systolic (congestive) heart failure Dentalgia Diverticulitis Essential hypertension Facial cellulitis History of MRSA infection Hyperlipidemia IBS (irritable bowel syndrome) ICD (implantable cardioverter-defibrillator) discharge (11/24/20) Insomnia Intertriginous dermatitis associated with moisture Migraines Morbid obesity due to excess calories Neuropathy Neuropathy Nonhealing surgical wound Obesity Open wound of abdominal wall with complication Open wound of neck with complication ANA (obstructive sleep apnea) ANA on CPAP Syncope (08/07/20) Tachycardia Type 2 diabetes mellitus Type 2 diabetes mellitus without complication Home Medications multivit with lentgbpp-gvnb-VB-lutein 8 mg iron-400 mcg-300 mcg tablet 1 tablet PO DAILY supplement 05/30/19 [History Last Taken 06/18/20 08:00] Handicap Placard #1 ea 06/06/19 [Rx Last Taken Unknown] albuterol sulfate 2.5 mg (3 mL) inhalation Q4H PRN shortness of breath or wheezing #90 mL 06/06/19 [Rx Last Taken Unknown] hydrocortisone 2.5 % topical cream 1 applic topical BID PRN rash #28 grams 09/11/19 [Rx Last Taken 06/13/20] ketoconazole 2 % shampoo 1 applic topical 2XW [place]ruf 06/18/20 [History Last Taken 06/18/20 11:02] omeprazole 40 mg capsule,delayed release 40 mg PO DAILY GERD #90 caps 07/28/20 [Rx Last Taken Unknown] mecobalamin (vitamin B12) 1,000 mcg chewable tablet 1,000 mcg PO DAILY Supplement #30 tabs 09/30/20 [Rx Last Taken Unknown] blood-glucose meter #1 ea 11/19/20 [Rx Last Taken Unknown] lancets #100 ea 11/19/20 [Rx Last Taken Unknown] blood sugar diagnostic (Blood Glucose Test) #100 ea 11/20/20 [Rx Last Taken Unknown] carvedilol 25 mg tablet 37.5 mg PO BID BP #270 tabs 02/02/21 [Rx Last Taken Unknown] rosuvastatin 10 mg tablet (Crestor) 10 mg PO DAILY #90 tabs 02/02/21 [Rx Last Taken Unknown] aspirin 81 mg tablet,delayed release 81 mg PO DAILY@0800 heart health #90 tabs 05/11/21 [Rx Last Taken Unknown] furosemide 40 mg tablet 40 mg PO DAILY Diuretic #90 tabs 05/11/21 [Rx Last Taken Unknown] gabapentin 800 mg tablet 800 mg PO TID NEUROPATHY #270 tabs 05/11/21 [Rx Last Taken Unknown] metformin 1,000 mg tablet 1,000 mg PO BID Diabetes 3 months #180 tabs 05/11/21 [Rx Last Taken Unknown] ivabradine 5 mg tablet (Corlanor) See Rx Instructions .Route .COMPLEX #60 tabs 05/14/21 [Rx Last Taken Unknown] diltiazem HCl 120 mg capsule,extended release 24 hr 120 mg PO BID Heart #180 caps 06/08/21 [Rx Last Taken Unknown] cholecalciferol (vitamin D3) 50 mcg (2,000 unit) capsule 2,000 unit PO DAILY supplement #90 caps 06/10/21 [Rx Last Taken Unknown] insulin glargine 100 unit/mL (3 mL) subcutaneous pen 45 unit (0.45 mL) subcut QPM Diabetes #15 mL 06/10/21 [Rx Last Taken Unknown] melatonin 10 mg tablet 10 mg PO QHS sleep #30 tabs 06/10/21 [Rx Last Taken Unknown] potassium chloride 20 mEq tablet,extended release 40 meq PO BID 30 days #120 tabs 06/10/21 [Rx Last Taken Unknown] duloxetine 60 mg capsule,delayed release 60 mg PO BID Depression #180 caps 07/22/21 [Rx Last Taken Unknown] dulaglutide 4.5 mg/0.5 mL subcutaneous pen injector 4.5 mg (0.5 mL) subcut QWEEK Diabetes 3 months #6.5 mL 08/11/21 [Rx Last Taken Unknown] empagliflozin 25 mg tablet (Jardiance) 25 mg PO QAM #30 tabs 08/11/21 [Rx Last Taken Unknown] nystatin 100,000 unit/gram topical powder 1 applic topical TID #60 grams 08/11/21 [Rx Last Taken Unknown] cephalexin 500 mg capsule 500 mg PO Q6 #12 CAPSULES 10/02/21 [Rx Last Taken Unknown] Allergy/AdvReac Type Severity Reaction Status Date / Time pregabalin [From Lyrica] Allergy Other Verified 10/02/21 15:48 sulfamethoxazole Allergy Rash Verified 10/02/21 15:48 [From Bactrim] tramadol HCl [From Ultram] Allergy Swelling Verified 10/02/21 15:48 trimethoprim [From Bactrim] Allergy Rash Verified 10/02/21 15:48 vancomycin Allergy Swelling Verified 10/02/21 15:48 Family History Other Arthritis Breast cancer CVA (cerebral vascular accident) Depression Diabetes Heart disease Hyperlipemia Hypertension Kidney disease Thyroid disorder Surgical History History of cholecystectomy History of dental surgery History of hysterectomy History of implantable cardiac defibrillator (ICD) (11/15/19) History of left heart catheterization (06/01/19) History of neck surgery navel removal Social History Smoking Status: Never smoker alcohol intake: never substance use type: does not use caffeine: No what type of physical activity do you participate in: none ROS ROS ED Constitutional Constitutional ED: Denies chills or fever(s) Eyes Eyes: Denies blurry vision or change in vision ENT ENT ED: Denies rhinorrhea or sore throat Cardiovascular Cardiovascular: Denies chest pain or palpitations Respiratory/Chest Respiratory/Chest: Denies cough or dyspnea Gastrointestinal Gastrointestinal: Reports nausea; Denies vomiting Genitourinary Genitourinary ED: Reports hematuria; Denies dysuria Musculoskeletal Musculoskeletal: Reports back pain; Denies neck pain Integumentary Denies abscess or rash Neurologic Neurologic: Denies headache(s) or weakness Allergic/Immunologic Allergic/Immunologic ED: Denies mouth swelling or urticaria EXAM Physical Exam Const Vital Signs: 10/02/21 15:47 Temperature 97.7 F L Temperature Source Temporal Pulse Rate 119 H Respiratory Rate 18 Blood Pressure 135/97 H Blood Pressure Mean 109 Pulse Ox 97 Oxygen Delivery Method Room Air Positive well nourished, well developed and obese General Appearance ED: well developed and NAD Nutritional Appearance: obese HEENT Reports moist mucous membranes Neck supple and no JVD Resp normal respiratory effort and clear to auscultation bilaterally Cardio regular rate, regular rhythm and no murmurs GI normal to inspection, nondistended, normoactive bowel sounds Palpation: soft and tender LLQ and LUQ; Negative for guarding or rebound tenderness present Back/Spine General Back: CVA tenderness left Extremity normal to inspection General Extremety ED: Negative for edema or tenderness General Extremity: Negative for edema Neuro oriented x3, CN's II-XII intact bilaterally and no sensory deficits noted Sensorium / Orientation: alert Motor Exam: strength 5/5 throughout Psych mental status grossly normal Skin no rashes or lesions noted MDM MDM MDM Narrative Medical decision making narrative: Patient was given IV fluids, morphine, and Zofran. CBC shows a slight leukocytosis of 11.4. Comprehensive metabolic profile showed a slightly elevated glucose of 249. Anion gap was normal. Urinalysis shows a leukocyte esterases of 501+ bacteria. There were 0-5 white blood cells. There were 25-50 red blood cells with occult blood of 250. Urine culture was ordered. Serum hCG was negative. CT scan of the abdomen pelvis was obtained. There is no acute abnormality noted. There is no nephrolithiasis or ureterolithiasis. There are no masses noted. This was interpreted by the radiologist and reviewed by myself. Patient was advised of her findings. We will cover the patient with Keflex for possible urinary tract infection. Patient was instructed to follow-up with her primary care physician in 5 to 7 days. Patient understood and was agreeable with the plan. All questions were answered. Lab Data Attestation: I reviewed the patient's lab results. Labs: Laboratory Results - last 24 hr 10/02/21 10/02/21 10/02/21 15:51 16:30 16:30 WBC 11.4 H RBC 5.10 Hgb 14.4 Hct 44.8 MCV 87.8 MCH 28.2 MCHC 32.1 RDW Std Deviation 40.0 RDW Coeff of Zeny 12.5 Plt Count 250 MPV 11.3 Immature Gran % (Auto) 0.300 Neut % (Auto) 53.4 Lymph % (Auto) 34.2 Jewell % (Auto) 9.6 Eos % (Auto) 2.1 Baso % (Auto) 0.4 Absolute Neuts (auto) 6.1 Absolute Lymphs (auto) 3.90 Nucleated RBC % 0 Sodium 140 Potassium 3.8 Chloride 105 Carbon Dioxide 28.0 Anion Gap 7 BUN 14 Creatinine 0.71 Estim Creat Clear Calc 77.10 Est GFR (MDRD) Af Amer 115 Est GFR (MDRD) Non-Af 95 BUN/Creatinine Ratio 19.7 Glucose 249 H Calcium 9.6 Total Bilirubin 0.30 AST 15 ALT 24 Alkaline Phosphatase 119 H Total Protein 7.1 Albumin 3.4 Globulin 3.7 Albumin/Globulin Ratio 0.9 Serum , Qual Urine Color Brown Urine Clarity Cloudy Urine pH 5.0 Ur Specific [place] 1.025 Urine Protein 100 H Urine Glucose (UA) 100 H Urine Ketones 15 H Urine Occult Blood 250 H Urine Nitrite Negative Urine Bilirubin 1 H Urine Urobilinogen Normal Ur Leukocyte Esterase 500 H Urine RBC 25-50 SEEN Urine WBC 0-5 SEEN Ur Squamous Epith Cells 5-10 SEEN Amorphous Sediment 4+ Urine Bacteria 1+ Urine Mucus 0 SEEN 10/02/21 16:30 WBC RBC Hgb Hct MCV MCH MCHC RDW Std Deviation RDW Coeff of Zeny Plt Count MPV Immature Gran % (Auto) Neut % (Auto) Lymph % (Auto) Jewell % (Auto) Eos % (Auto) Baso % (Auto) Absolute Neuts (auto) Absolute Lymphs (auto) Nucleated RBC % Sodium Potassium Chloride Carbon Dioxide Anion Gap BUN Creatinine Estim Creat Clear Calc Est GFR (MDRD) Af Amer Est GFR (MDRD) Non-Af BUN/Creatinine Ratio Glucose Calcium Total Bilirubin AST ALT Alkaline Phosphatase Total Protein Albumin Globulin Albumin/Globulin Ratio Serum , Qual NEGATIVE Urine Color Urine Clarity Urine pH Ur Specific [place] Urine Protein Urine Glucose (UA) Urine Ketones Urine Occult Blood Urine Nitrite Urine Bilirubin Urine Urobilinogen Ur Leukocyte Esterase Urine RBC Urine WBC Ur Squamous Epith Cells Amorphous Sediment Urine Bacteria Urine Mucus Radiography Diagnostic Testing: Clinical Impression(s) from Imaging Studies Abdomen/Pelvis CT 10/02/21 16:13 IMPRESSION: Normal unenhanced CT of the abdomen and pelvis. Electronically Signed: Nelson Sorensen MD at 17:23 EDT , Discharge Plan Triage Chief Complaint: Flank Pain Other Complaint: Complaint ED Provider: August Estrada Dx/Rx/DC Orders Clinical Impression: Hematuria, Acute left flank pain, Morbid obesity due to excess calories Instructions: ED Flank Pain, Uncertain Cause, ED Hematuria Prescriptions: New cephalexin [cephalexin] 500 MG capsule 500 mg PO Q6 Qty: 12 0RF No Action (DME) Handicap Placard See Rx Instructions .Route .MEDSUPPLY Qty: 1 0RF Rx Instructions: As directed, length of time 3 years albuterol sulfate 2.5 mg /3 mL (0.083 %) solution for nebulization 2.5 mg INHALATION Q4H PRN (Reason: shortness of breath or wheezing) Qty: 90 3RF hydrocortisone 2.5 % cream 1 applic TOPICAL BID PRN (Reason: rash) Qty: 28 1RF Jardiance 25 mg tablet 25 mg PO QAM Qty: 30 3RF dulaglutide 4.5 mg/0.5 mL pen injector 4.5 mg SC QWEEK 90 Days Qty: 6.5 3RF Rx Instructions: Gives on Fridays nystatin 100,000 unit/gram powder 1 applic topical TID Qty: 60 6RF tkviylea-uld-xdpt-FA-lutein 1 EACH tablet 1 tablet PO DAILY ketoconazole 120 ML shampoo 1 applic TOPICAL 2XW omeprazole 40 mg capsule,delayed release(DR/EC) 40 mg PO DAILY Qty: 90 3RF mecobalamin (vitamin B12) 1,000 mcg tablet,chewable 1,000 mcg PO DAILY Qty: 30 0RF (DME) blood-glucose meter Misc See Rx Instructions .ROUTE .MEDSUPPLY Qty: 1 0RF Rx Instructions: use to check blood glucose TID for type 2 DM (DME) lancets Misc See Rx Instructions .ROUTE .MEDSUPPLY Qty: 100 3RF Rx Instructions: use to test blood sugar TID for type 2 DM (DME) Blood Glucose Test Strip See Rx Instructions .ROUTE .MEDSUPPLY Qty: 100 3RF Rx Instructions: use to check blood glucose TID for type 2 DM rosuvastatin [Crestor] 10 mg tablet 10 mg PO DAILY Qty: 90 1RF carvedilol 25 mg tablet 37.5 mg PO BID Qty: 270 3RF Rx Instructions: administer with food (meal or snack) aspirin 81 mg tablet,delayed release (DR/EC) 81 mg PO DAILY@0800 Qty: 90 3RF furosemide 40 mg tablet 40 mg PO DAILY Qty: 90 1RF gabapentin 800 mg tablet 800 mg PO TID Qty: 270 2RF metformin 1,000 mg tablet 1,000 mg PO BID 90 Days Qty: 180 3RF Corlanor 5 mg tablet See Rx Instructions .ROUTE .COMPLEX Qty: 60 11RF Dose Instruction: take 1 tablet by mouth twice a day with food Rx Instructions: take 1 tablet by mouth twice a day with food diltiazem HCl 120 mg capsule,extended release 24hr 120 mg PO BID Qty: 180 3RF cholecalciferol (vitamin D3) 50 mcg (2,000 unit) capsule 2,000 unit PO DAILY Qty: 90 3RF insulin glargine 100 unit/mL (3 mL) insulin pen 45 unit SC QPM Qty: 15 1RF melatonin 10 mg tablet 10 mg PO QHS Qty: 30 3RF potassium chloride 20 mEq tablet extended release 40 meq PO BID 30 Days Qty: 120 11RF duloxetine 60 mg capsule,delayed release(DR/EC) 60 mg PO BID Qty: 180 0RF Primary Care Provider: Nevaeh Oconnor Referrals: Nevaeh Oconnor MD [Primary Care Provider] - 3-5 Days Disposition Disposition: Home, Self Care
[2021-10-02 16:12] LABS: Urine Bilirubin Dipstick 1 mg/dL (Negative)
--- NOTE | 2021-10-02 16:13 | CT_ITS ---
STUDY: CT ABDOMEN AND PELVIS WITHOUT CONTRAST REASON FOR EXAM: Female, 45 years old. Left flank pain RADIATION DOSAGE (If Supplied By Facility): CTDIvol = ( 18.79 ) mGy, DLP = ( 934.38 ) mGycm TECHNIQUE: Transaxial images were obtained from the dome of the diaphragm to the symphysis pubis without oral contrast, and without intravenous contrast. Sagittal and coronal images were reconstructed. Individualized dose optimization techniques were used for this CT. COMPARISON: 08/11/2020 FINDINGS: The visualized lung bases are unremarkable. The visualized portions of the heart are within normal limits. Normal liver. There is non-visualization of the gallbladder, which may be secondary to either contraction or a prior cholecystectomy. Normal spleen. Normal pancreas. Normal bilateral adrenal glands. Normal right kidney. Normal left kidney. Normal visualized stomach. Normal small intestine. Normal colon. The appendix is visualized and appears normal. Normal abdominal aorta. Normal inferior vena cava. Normal retroperitoneum. Normal urinary bladder. Normal abdominal wall. Moderate levoscoliosis lumbar spine with degenerative disc disease. CT/Abdomen/Pelvis without Cont IMPRESSION: Normal unenhanced CT of the abdomen and pelvis. Electronically Signed: Nelson Sorensen MD at 17:23 EDT ,
[2021-10-02] MEDS: 0.9% Normal Saline 1,000 ML 1000 ML IV (16:28)
[2021-10-02] MEDS: Ondansetron 4 MG/2 ML Vial IV (16:28)
[2021-10-02] MEDS: Morphine 4 MG/ML Syringe IV (16:28)
[2021-10-02 16:44] LABS: Absolute Neutrophil Count 6.1 X10^3/uL (2.0-7.7); Basophil# 0.04 X10^3/uL; Basophil% 0.4 % (0-1); Eosinophil# 0.24 X10^3/uL; Eosinophils% 2.1 % (0-5); Hematocrit 44.8 % (37-47); Hemoglobin 14.4 g/dL (12.0-15.0); Lymphocyte % 34.2 % (19-41); Mean Corp Hgb Conc 32.1 g/dL (32-36); Mean Corpuscular Hgb 28.2 pg (27.0-32.0); Mean Corpuscular Volume 87.8 fL (81-99); Mean Platelet Vol. 11.3 fl (6.2-12.0); Monocyte% 9.6 % (0-10); NRBC Flagged by Analyzer 0 % (0-5); Neutrophil # 6.11 X10^3/uL (2.7-7.7); Neutrophil % 53.4 % (47-70); Platelet Count 250 K/mm3 (150-450); RBC Distribution Width CV 12.5 % (11.6-14.6); White Blood Count 11.4 K/mm3 (4.4-11.0)
[2021-10-02 16:53] LABS: ALB/GLOB Ratio 0.9 RATIO (0.9-2.4); AST(SGOT) 15 U/L (15-37); Alanine Aminotransfer ALT/SGPT 24 U/L (13-56); Albumin, Serum 3.4 g/dL (3.2-5.0); Alkaline Phosphatase 119 U/L (45-117); Anion Gap 7 (5-15); BUN 14 mg/dL (7-18); BUN/Creat Ratio 19.7 RATIO (10-20); Calcium,Total 9.6 mg/dL (8.5-10.1); Chloride 105 mmol/L (98-107); Creatinine, Serum 0.71 mg/dL (0.55-1.02); EST Glomerular Filtration Rate 95 mL/min (>60); Est Glom Filt Rate - Afr Amer 115 mL/min (>60); Globulin 3.7 g/dL (2.2-4.2); Glucose 249 mg/dL (74-106); Potassium 3.8 mmol/L (3.5-5.1); Protein, Total 7.1 g/dL (6.4-8.2); Sodium Level 140 mmol/L (136-145)
[2021-10-02 17:19] LABS: Internal QC Validated? YES +Cl - CLEAR BKGD; Pregnancy, Serum, hCG Quali. NEGATIVE Negative
[2021-10-02 17:24] LABS: Red Blood Cells-Urine 25-50 SEEN /hpf (0-5); Squamous Epithelial Cells - UA 5-10 SEEN /hpf (5-10); White Blood Cells 0-5 SEEN /hpf (0-5)
[2021-10-02 17:25] LABS: Amorphous Sediment 4+; Bacteria 1+ /hpf (None Seen)
== END 2021-10-02 18:37 | disposition home or self-care (01) ==
PROVIDERS: Emergency Provider Emergency Medicine; PCP Internal Medicine; Visit Provider Emergency Medicine
DX: R10.12 Left upper quadrant pain (principal); I42.0 Dilated cardiomyopathy; I11.0 Hypertensive heart disease with heart failure; I50.22 Chronic systolic (congestive) heart failure; E11.65 Type 2 diabetes mellitus with hyperglycemia; E11.40 Type 2 diabetes mellitus with diabetic neuropathy, unspecified; E66.01 Morbid (severe) obesity due to excess calories; Z79.4 Long term (current) use of insulin; R10.32 Left lower quadrant pain; R31.9 Hematuria, unspecified; E78.5 Hyperlipidemia, unspecified; G47.33 Obstructive sleep apnea (adult) (pediatric); Z68.35 Body mass index [BMI] 35.0-35.9, adult; Z90.49 Acquired absence of other specified parts of digestive tract; Z90.710 Acquired absence of both cervix and uterus; Z95.810 Presence of automatic (implantable) cardiac defibrillator; Z79.82 Long term (current) use of aspirin; Z79.899 Other long term (current) drug therapy
CPT/HCPCS: 74176; 80053; 81001; 84703; 85025; 96361; 96374; 96375; 99283; J7030; A4216; J2405

== ENCOUNTER 2021-10-05 15:27 | Emergency (ER) | payer MEDICAID, SELFPAY ==
[2021-10-05] VITALS (10 sets, daily range): BP systolic 116–162; BP diastolic 75–101; PULSE 119–137; RESP 15–24; TEMP 36–37.6; O2SAT 93–97; BMI 35.9
--- NOTE | 2021-10-05 15:48 | EKG12_ITS ---
Test Reason : cp Blood Pressure : / mmHG Vent. Rate : 117 BPM Atrial Rate : 117 BPM P-R Int : 154 ms QRS Dur : 094 ms QT Int : 326 ms P-R-T Axes : 047 008 052 degrees QTc Int : 454 ms Sinus tachycardia Otherwise normal ECG Confirmed by NIRALI ORLANDO, GELACIO ([id number]), film or videotape editor LADONNA BOWMAN ([id number]) on 10/07/2021 10:45:28 AM Referred By: Ari Confirmed By:GELACIO CAMPOVERDE MD
--- NOTE | 2021-10-05 15:49 | EDS_ITS ---
HPI History of Present Illness Chief Complaint: General Illness Narrative Narrative: 45-year-old female seen Tuesday for fever and flank pain presenting after following up with her primary care provider because he had concern for her heart rate. Patient reports that she has had fevers over the weekend with a T-max of 102 Fahrenheit. She states that she still having hematuria urinary symptoms. She also reports that she is now having some chest tightness. She feels like she is short of breath when she is walking. These have both been going on for 24 hours. She states that she has a history of CHF, pacemaker defibrillator, hypertension, cardiomyopathy. Patient was prescribed Keflex for her UTI and has been taking all doses. [facility] Medical History Abdominal panniculus, symptomatic Abscess of maxilla Anxiety and depression Arthritis Cardiomyopathy, dilated, nonischemic Chronic systolic (congestive) heart failure Dentalgia Diverticulitis Essential hypertension Facial cellulitis History of MRSA infection Hyperlipidemia IBS (irritable bowel syndrome) ICD (implantable cardioverter-defibrillator) discharge (11/24/20) Insomnia Intertriginous dermatitis associated with moisture Migraines Morbid obesity due to excess calories Neuropathy Neuropathy Nonhealing surgical wound Obesity Open wound of abdominal wall with complication Open wound of neck with complication ANA (obstructive sleep apnea) ANA on CPAP Syncope (08/07/20) Tachycardia Type 2 diabetes mellitus Type 2 diabetes mellitus without complication Home Medications multivit with xagtuhgj-uzbj-VC-lutein 8 mg iron-400 mcg-300 mcg tablet 1 tablet PO DAILY supplement 05/30/19 [History Last Taken 06/18/20 08:00] Handicap Placard #1 ea 06/06/19 [Rx Last Taken Unknown] albuterol sulfate 2.5 mg (3 mL) inhalation Q4H PRN shortness of breath or wheezing #90 mL 06/06/19 [Rx Last Taken Unknown] ketoconazole 2 % shampoo 1 applic topical 2XW [place] 06/18/20 [History Last Taken 06/18/20 11:02] omeprazole 40 mg capsule,delayed release 40 mg PO DAILY GERD #90 caps 07/28/20 [Rx Last Taken Unknown] mecobalamin (vitamin B12) 1,000 mcg chewable tablet 1,000 mcg PO DAILY Supplement #30 tabs 09/30/20 [Rx Last Taken Unknown] blood-glucose meter #1 ea 11/19/20 [Rx Last Taken Unknown] lancets #100 ea 11/19/20 [Rx Last Taken Unknown] blood sugar diagnostic (Blood Glucose Test) #100 ea 11/20/20 [Rx Last Taken Unknown] carvedilol 25 mg tablet 37.5 mg PO BID BP #270 tabs 02/02/21 [Rx Last Taken Unknown] rosuvastatin 10 mg tablet (Crestor) 10 mg PO DAILY #90 tabs 02/02/21 [Rx Last Taken Unknown] aspirin 81 mg tablet,delayed release 81 mg PO DAILY@0800 heart health #90 tabs 05/11/21 [Rx Last Taken Unknown] furosemide 40 mg tablet 40 mg PO DAILY Diuretic #90 tabs 05/11/21 [Rx Last Taken Unknown] gabapentin 800 mg tablet 800 mg PO TID NEUROPATHY #270 tabs 05/11/21 [Rx Last Taken Unknown] metformin 1,000 mg tablet 1,000 mg PO BID Diabetes 3 months #180 tabs 05/11/21 [Rx Last Taken Unknown] ivabradine 5 mg tablet (Corlanor) See Rx Instructions .Route .COMPLEX #60 tabs 05/14/21 [Rx Last Taken Unknown] diltiazem HCl 120 mg capsule,extended release 24 hr 120 mg PO BID Heart #180 caps 06/08/21 [Rx Last Taken Unknown] cholecalciferol (vitamin D3) 50 mcg (2,000 unit) capsule 2,000 unit PO DAILY supplement #90 caps 06/10/21 [Rx Last Taken Unknown] insulin glargine 100 unit/mL (3 mL) subcutaneous pen 45 unit (0.45 mL) subcut QPM Diabetes #15 mL 06/10/21 [Rx Last Taken Unknown] melatonin 10 mg tablet 10 mg PO QHS sleep #30 tabs 06/10/21 [Rx Last Taken Unknown] potassium chloride 20 mEq tablet,extended release 40 meq PO BID 30 days #120 tabs 06/10/21 [Rx Last Taken Unknown] duloxetine 60 mg capsule,delayed release 60 mg PO BID Depression #180 caps 07/22/21 [Rx Last Taken Unknown] dulaglutide 4.5 mg/0.5 mL subcutaneous pen injector 4.5 mg (0.5 mL) subcut QWEEK Diabetes 3 months #6.5 mL 08/11/21 [Rx Last Taken Unknown] empagliflozin 25 mg tablet (Jardiance) 25 mg PO QAM #30 tabs 08/11/21 [Rx Last Taken Unknown] nystatin 100,000 unit/gram topical powder 1 applic topical TID #60 grams 08/11/21 [Rx Last Taken Unknown] cephalexin 500 mg capsule 500 mg PO Q6 #12 CAPSULES 10/02/21 [Rx Last Taken Unknown] Allergy/AdvReac Type Severity Reaction Status Date / Time pregabalin [From Lyrica] Allergy Other Verified 10/05/21 14:10 sulfamethoxazole Allergy Rash Verified 10/05/21 14:10 [From Bactrim] tramadol HCl [From Ultram] Allergy Swelling Verified 10/05/21 14:10 trimethoprim [From Bactrim] Allergy Rash Verified 10/05/21 14:10 vancomycin Allergy Swelling Verified 10/05/21 14:10 Family History Other Arthritis Breast cancer CVA (cerebral vascular accident) Depression Diabetes Heart disease Hyperlipemia Hypertension Kidney disease Thyroid disorder Surgical History History of cholecystectomy History of dental surgery History of hysterectomy History of implantable cardiac defibrillator (ICD) (11/15/19) History of left heart catheterization (06/01/19) History of neck surgery navel removal Social History Smoking Status: Never smoker alcohol intake: never substance use type: does not use caffeine: No what type of physical activity do you participate in: none ROS ROS ED Constitutional Constitutional ED: Reports chills and fever(s) ENT ENT ED: Denies rhinorrhea or sore throat Cardiovascular Cardiovascular: Reports chest pain and racing heartbeat Respiratory/Chest Respiratory/Chest: Reports cough and dyspnea Gastrointestinal Gastrointestinal: Reports abdominal pain and nausea Genitourinary Genitourinary ED: Reports dysuria, hematuria and urinary frequency Musculoskeletal Musculoskeletal: Denies arthralgias Neurologic Neurologic: Denies headache(s) or paresthesias Psychiatric Psychiatric: Denies anxiety or depression EXAM Physical Exam Const Vital Signs: 10/05/21 15:29 10/05/21 15:48 10/05/21 15:48 Temperature 96.8 F L Temperature Source Temporal Pulse Rate 127 H 123 H Respiratory Rate 19 H 15 Respiratory Effort Respiratory Pattern Blood Pressure 135/101 H 149/95 H Blood Pressure Mean 112 113 Pulse Ox 95 94 Oxygen Delivery Method Room Air Room Air Room Air 10/05/21 16:31 10/05/21 16:36 10/05/21 17:28 Temperature 99.6 F H Temperature Source Oral Pulse Rate 128 H Respiratory Rate 19 H Respiratory Effort Normal Respiratory Pattern Normal Blood Pressure 162/87 H Blood Pressure Mean 112 Pulse Ox 95 Oxygen Delivery Method Room Air 10/05/21 17:30 10/05/21 18:06 10/05/21 19:17 Temperature 98.3 F 98.9 F 99.4 F H Temperature Source Oral Oral Oral Pulse Rate 131 H 137 H Respiratory Rate 18 18 Respiratory Effort Respiratory Pattern Blood Pressure 130/84 H 131/92 H Blood Pressure Mean 99 105 Pulse Ox 95 93 Oxygen Delivery Method Room Air Room Air 10/05/21 20:22 10/05/21 20:22 10/05/21 20:22 Temperature 97.9 F 97.9 F 97.9 F Temperature Source Temporal Temporal Temporal Pulse Rate 123 H 123 H Respiratory Rate 24 H 24 H Respiratory Effort Respiratory Pattern Blood Pressure 116/81 H 116/81 H Blood Pressure Mean 92 92 Pulse Ox 94 94 Oxygen Delivery Method Room Air Room Air 10/05/21 20:52 10/05/21 20:52 10/05/21 20:52 Temperature 97.9 F 97.9 F Temperature Source Temporal Temporal Pulse Rate 119 H 119 H Respiratory Rate 20 H 20 H Respiratory Effort Respiratory Pattern Blood Pressure 124/95 H 124/95 H Blood Pressure Mean 104 104 Pulse Ox 97 97 Oxygen Delivery Method Room Air Room Air Positive well nourished General Appearance ED: NAD; Negative for pallor HEENT Reports moist mucous membranes Negative for trauma Eyes PERRL and EOMs intact bilaterally Neck no lymphadenopathy Resp normal respiratory effort and clear to auscultation bilaterally Cardio regular rhythm Rate: tachycardic GI GI Narrative: Tenderness palpation of the left flank. Auscultation: normoactive bowel sounds Back/Spine General Back: CVA tenderness left Neuro oriented x3 and CN's II-XII intact bilaterally Sensorium / Orientation: alert Motor Exam: strength 5/5 throughout Psych mental status grossly normal Skin no rashes or lesions noted and no wounds General Skin Exam: Negative for jaundice or pallor MDM MDM MDM Narrative Medical decision making narrative: Patient presenting with continued abdominal pain, fever, urinary symptoms and now new chest pain was present for 24 hours. Septic work-up was pursued. Patient tachycardic but is noted to always be tachycardic in ER. EKG is obtained and shows a sinus tachycardia at 117 bpm without sign of ischemic change or dysrhythmia. High-sensitivity troponin is 3 after 24 hours of pain I do not believe this is ACS. D-dimer negative. CBC shows no leukocytosis or left shift. Platelets normal. Renal function and electrolytes within normal limits. LFTs are normal. Lactic acid normal. Coagulation studies normal. Chest x-ray on my interpretation shows no acute cardiopulmonary process. Radiologist agrees. I did not test the patient for COVID because she states she is tested herself several times in last couple of days and have all been negative. Urinalysis again positive for infection. I sent a culture. She was treated with a dose Rocephin. CT of the abdomen pelvis with IV contrast obtained to rule out diverticulitis and this is negative for any acute findings. Discussed the patient with Dr. Oconnor who states that she will order the patient antibiotics for home after she is given a dose of Rocephin. I did claims counsel her that the urine was cultured and this is pending. Patient counseled on all findings and she is comfortable with this plan. Patient discharged home in stable condition Lab Data Labs: Laboratory Results - last 24 hr 10/05/21 10/05/21 10/05/21 16:05 16:05 16:05 WBC 8.2 RBC 5.09 Hgb 14.3 Hct 44.5 MCV 87.4 MCH 28.1 MCHC 32.1 RDW Std Deviation 40.0 RDW Coeff of Zeny 12.6 Plt Count 196 MPV 11.2 Immature Gran % (Auto) 0.500 Neut % (Auto) 69.6 Lymph % (Auto) 16.7 L [place] % (Auto) 11.1 H Eos % (Auto) 1.7 Baso % (Auto) 0.4 Absolute Neuts (auto) 5.7 Absolute Lymphs (auto) 1.37 Nucleated RBC % 0 PT 12.7 INR 1.0 APTT 31.8 D-Dimer Quant (PE/DVT) < 0.27 L Sodium 139 Potassium 3.9 Chloride 105 Carbon Dioxide 25.0 Anion Gap 9 BUN 14 Creatinine 0.60 Estim Creat Clear Calc 91.23 Est GFR (MDRD) Af Amer 140 Est GFR (MDRD) Non-Af 116 BUN/Creatinine Ratio 23.4 H Glucose 305 H Lactic Acid Calcium 9.6 Total Bilirubin 0.30 AST 27 ALT 34 Alkaline Phosphatase 112 Troponin I High Sens 3 Total Protein 7.3 Albumin 3.3 Globulin 4.0 Albumin/Globulin Ratio 0.8 L Urine Color Urine Clarity Urine pH Ur Specific [place] Urine Protein Urine Glucose (UA) Urine Ketones Urine Occult Blood Urine Nitrite Urine Bilirubin Urine Urobilinogen Ur Leukocyte Esterase Urine RBC Urine WBC Ur Squamous Epith Cells Urine Bacteria Urine Mucus 10/05/21 10/05/21 10/05/21 16:05 17:30 20:17 WBC RBC Hgb Hct MCV MCH MCHC RDW Std Deviation RDW Coeff of Zeny Plt Count MPV Immature Gran % (Auto) Neut % (Auto) Lymph % (Auto) [place] % (Auto) Eos % (Auto) Baso % (Auto) Absolute Neuts (auto) Absolute Lymphs (auto) Nucleated RBC % PT INR APTT D-Dimer Quant (PE/DVT) Sodium Potassium Chloride Carbon Dioxide Anion Gap BUN Creatinine Estim Creat Clear Calc Est GFR (MDRD) Af Amer Est GFR (MDRD) Non-Af BUN/Creatinine Ratio Glucose Lactic Acid 2.0 1.1 Calcium Total Bilirubin AST ALT Alkaline Phosphatase Troponin I High Sens Total Protein Albumin Globulin Albumin/Globulin Ratio Urine Color Yellow Urine Clarity Cloudy Urine pH 5.0 Ur Specific [place] 1.020 Urine Protein 30 H Urine Glucose (UA) 1000 H Urine Ketones 5 H Urine Occult Blood 250 H Urine Nitrite Positive H Urine Bilirubin Negative Urine Urobilinogen Normal Ur Leukocyte Esterase 25 H Urine RBC > 100 SEEN Urine WBC 0-5 SEEN Ur Squamous Epith Cells 0-5 SEEN Urine Bacteria 1+ Urine Mucus 0 SEEN Radiography Diagnostic Testing: Clinical Impression(s) from Imaging Studies Abdomen/Pelvis CT 10/05/21 16:09 IMPRESSION: No acute abnormalities in the abdomen or pelvis. Electronically Signed: Vince Drummond MD at 18:18 EDT , Chest X-Ray 10/05/21 16:14 IMPRESSION: No acute radiographic abnormalities. Electronically Signed: Vince Drummond MD at 16:55 EDT , Discharge Plan Triage Chief Complaint: General Illness ED Provider: Miguel Michel Dx/Rx/DC Orders Instructions: ED CYSTITIS Female Adult Prescriptions: No Action (DME) Handicap Placard See Rx Instructions .Route .MEDSUPPLY Qty: 1 0RF Rx Instructions: As directed, length of time 3 years albuterol sulfate 2.5 mg /3 mL (0.083 %) solution for nebulization 2.5 mg INHALATION Q4H PRN (Reason: shortness of breath or wheezing) Qty: 90 3RF Jardiance 25 mg tablet 25 mg PO QAM Qty: 30 3RF dulaglutide 4.5 mg/0.5 mL pen injector 4.5 mg SC QWEEK 90 Days Qty: 6.5 3RF Rx Instructions: Gives on Fridays nystatin 100,000 unit/gram powder 1 applic topical TID Qty: 60 6RF kenprsbv-whr-iakm-FA-lutein 1 EACH tablet 1 tablet PO DAILY ketoconazole 120 ML shampoo 1 applic TOPICAL 2XW cephalexin [cephalexin] 500 MG capsule 500 mg PO Q6 Qty: 12 0RF omeprazole 40 mg capsule,delayed release(DR/EC) 40 mg PO DAILY Qty: 90 3RF mecobalamin (vitamin B12) 1,000 mcg tablet,chewable 1,000 mcg PO DAILY Qty: 30 0RF (DME) blood-glucose meter Misc See Rx Instructions .ROUTE .MEDSUPPLY Qty: 1 0RF Rx Instructions: use to check blood glucose TID for type 2 DM (DME) lancets Misc See Rx Instructions .ROUTE .MEDSUPPLY Qty: 100 3RF Rx Instructions: use to test blood sugar TID for type 2 DM (DME) Blood Glucose Test Strip See Rx Instructions .ROUTE .MEDSUPPLY Qty: 100 3RF Rx Instructions: use to check blood glucose TID for type 2 DM rosuvastatin [Crestor] 10 mg tablet 10 mg PO DAILY Qty: 90 1RF carvedilol 25 mg tablet 37.5 mg PO BID Qty: 270 3RF Rx Instructions: administer with food (meal or snack) aspirin 81 mg tablet,delayed release (DR/EC) 81 mg PO DAILY@0800 Qty: 90 3RF furosemide 40 mg tablet 40 mg PO DAILY Qty: 90 1RF gabapentin 800 mg tablet 800 mg PO TID Qty: 270 2RF metformin 1,000 mg tablet 1,000 mg PO BID 90 Days Qty: 180 3RF Corlanor 5 mg tablet See Rx Instructions .ROUTE .COMPLEX Qty: 60 11RF Dose Instruction: take 1 tablet by mouth twice a day with food Rx Instructions: take 1 tablet by mouth twice a day with food diltiazem HCl 120 mg capsule,extended release 24hr 120 mg PO BID Qty: 180 3RF cholecalciferol (vitamin D3) 50 mcg (2,000 unit) capsule 2,000 unit PO DAILY Qty: 90 3RF insulin glargine 100 unit/mL (3 mL) insulin pen 45 unit SC QPM Qty: 15 1RF melatonin 10 mg tablet 10 mg PO QHS Qty: 30 3RF potassium chloride 20 mEq tablet extended release 40 meq PO BID 30 Days Qty: 120 11RF duloxetine 60 mg capsule,delayed release(DR/EC) 60 mg PO BID Qty: 180 0RF Primary Care Provider: Nevaeh Oconnor Referrals: Nevaeh Oconnor MD [Primary Care Provider] - Disposition Disposition: Home, Self Care
--- NOTE | 2021-10-05 16:09 | CT_ITS ---
INDICATION: llq abdominal pain EXAMINATION: CT Abdomen And Pelvis W/ Contrast Injection TECHNIQUE: Helically acquired images were obtained of the abdomen and pelvis after IV contrast. A radiation dose optimization technique was used for this scan. IV Contrast dosage and agent: IV 100mL Isovue-300 Oral contrast: None. COMPARISON: 10/02/2021. FINDINGS: Visualized lung bases: Unremarkable Liver: Unremarkable Gallbladder: Unremarkable Spleen: Unremarkable Pancreas: Unremarkable Adrenal Glands: Unremarkable Kidneys: Unremarkable Vasculature: Unremarkable GI Tract: Unremarkable Lymphadenopathy: None Peritoneum: No ascites. Bladder: Unremarkable Reproductive organs: Unremarkable Bones/Soft tissues: Mild scattered degenerative changes of the visualized spine. CT/Abdomen/Pelvis W IV Cont ONLY IMPRESSION: No acute abnormalities in the abdomen or pelvis. Electronically Signed: Vince Drummond MD at 18:18 EDT ,
--- NOTE | 2021-10-05 16:14 | RAD_ITS ---
INDICATION: chest pain EXAMINATION/TECHNIQUE: X-RAY - XR Chest 1 View COMPARISON: 11/24/2020 FINDINGS: The lungs are clear. The heart is mildly enlarged. Left-sided cardiac device. No pleural effusion or pneumothorax. No acute osseous abnormalities. Dextroscoliosis. RAD/Chest 1 View (Portable) IMPRESSION: No acute radiographic abnormalities. Electronically Signed: Vince Drummond MD at 16:55 EDT ,
[2021-10-05] MEDS: Morphine 4 MG/ML Syringe IV ×2 (16:21→19:12)
[2021-10-05] MEDS: Ondansetron 4 MG/2 ML Vial IV (16:21)
[2021-10-05 16:22] LABS: Absolute Lymphocyte Count 1.37 X10^3/uL (0.83-4.51); Absolute Neutrophil Count 5.7 X10^3/uL (2.0-7.7); Basophil# 0.03 X10^3/uL; Basophil% 0.4 % (0-1); Eosinophil# 0.14 X10^3/uL; Eosinophils% 1.7 % (0-5); Hematocrit 44.5 % (37-47); Hemoglobin 14.3 g/dL (12.0-15.0); Lymphocyte # 1.37 X10^3/ul (0.83-4.51); Lymphocyte % 16.7 % (19-41); Mean Corp Hgb Conc 32.1 g/dL (32-36); Mean Corpuscular Hgb 28.1 pg (27.0-32.0); Mean Corpuscular Volume 87.4 fL (81-99); Mean Platelet Vol. 11.2 fl (6.2-12.0); Monocyte# 0.91 X10^3/uL; Monocyte% 11.1 % (0-10); NRBC Flagged by Analyzer 0 % (0-5); Neutrophil # 5.73 X10^3/uL (2.7-7.7); Neutrophil % 69.6 % (47-70); Platelet Count 196 K/mm3 (150-450); RBC Distribution Width CV 12.6 % (11.6-14.6); Red Blood Count 5.09 M/mm3 (4.2-5.4); White Blood Count 8.2 K/mm3 (4.4-11.0)
[2021-10-05 16:36] LABS: Prothrombin Time (Protime)PT. 12.7 SECONDS (11.7-14.9)
[2021-10-05 16:37] LABS: Partial Thromboplast Time 31.8 Seconds (24.1-36.2)
[2021-10-05 16:42] LABS: ALB/GLOB Ratio 0.8 RATIO (0.9-2.4); AST(SGOT) 27 U/L (15-37); Alanine Aminotransfer ALT/SGPT 34 U/L (13-56); Albumin, Serum 3.3 g/dL (3.2-5.0); Alkaline Phosphatase 112 U/L (45-117); Anion Gap 9 (5-15); BUN 14 mg/dL (7-18); BUN/Creat Ratio 23.4 RATIO (10-20); Calcium,Total 9.6 mg/dL (8.5-10.1); Chloride 105 mmol/L (98-107); EST Glomerular Filtration Rate 116 mL/min (>60); Est Glom Filt Rate - Afr Amer 140 mL/min (>60); Estimated Creatinine Clearance 91.23 ml/min; Glucose 305 mg/dL (74-106); Potassium 3.9 mmol/L (3.5-5.1); Protein, Total 7.3 g/dL (6.4-8.2); Sodium Level 139 mmol/L (136-145); Troponin-I HS 3 pg/mL (3.0-54.0)
[2021-10-05 16:50] LABS: D-Dimer Quantitative (DVT/PE) < 0.27 FEU/ug/m (0.27-0.49)
[2021-10-05 17:33] LABS: Mucous, Urine 0 SEEN /hpf (<or=2+)
[2021-10-05 17:41] LABS: Color, Urine Yellow (Yellow); Glucose, Dipstick 1000 mg/dl (Normal); Ketone-Dipstick 5 mg/dl (Negative); Leukocyte Esterase-Dipstick 25 /ul (Negative); Nitrite-Dipstick Positive (Negative); Occult Blood-Urine 250 /ul (Negative); Protein-Dipstick 30 mg/dl (Negative); Urine Bilirubin Dipstick Negative (Negative); Urine Clarity Cloudy (Clear); Urine Urobilinogen Normal (Normal)
[2021-10-05 18:00] LABS: Red Blood Cells-Urine > 100 SEEN /hpf (0-5); White Blood Cells 0-5 SEEN /hpf (0-5)
[2021-10-05 18:01] LABS: Bacteria 1+ /hpf (None Seen); Squamous Epithelial Cells - UA 0-5 SEEN /hpf (5-10)
[2021-10-05] MEDS: Ketorolac 15 MG/ML Vial IV (19:12)
[2021-10-05 20:14] LABS: Reflex Lactate? Y
[2021-10-05] MEDS: Ceftriaxone 1 GM/50 ML BAG IV (20:50)
[2021-10-05 20:54] LABS: Lactic Acid 1.1 mmol/L (0.4-1.9)
== END 2021-10-05 21:33 | disposition home or self-care (01) ==
PROVIDERS: Emergency Provider Student in an Organized Health Care Education/Training Program; PCP Internal Medicine; Visit Provider Student in an Organized Health Care Education/Training Program
DX: N39.0 Urinary tract infection, site not specified (principal); I11.0 Hypertensive heart disease with heart failure; I50.22 Chronic systolic (congestive) heart failure; E11.40 Type 2 diabetes mellitus with diabetic neuropathy, unspecified; E78.5 Hyperlipidemia, unspecified; M19.90 Unspecified osteoarthritis, unspecified site; G47.33 Obstructive sleep apnea (adult) (pediatric); E66.9 Obesity, unspecified; Z95.810 Presence of automatic (implantable) cardiac defibrillator; Z79.899 Other long term (current) drug therapy
CPT/HCPCS: 85610; 85730; Q9967; 80053; 85025; 87086; 84484; 96361; 85379; 96365; 96375; 71045; 74177; 96376; 93005; 99283; J2405; 81001; 83605; 87040; J7040; A4216

== ENCOUNTER → 2021-10-05 | Outpatient (CLI) | payer MEDICAID, SELFPAY ==
[2021-10-05 14:38] LABS: Mucous, Urine 0 SEEN /hpf (<or=2+)
[2021-10-05 15:02] LABS: Color, Urine Amber (Yellow); Glucose, Dipstick 1000 mg/dl (Normal); Ketone-Dipstick 15 mg/dl (Negative); Leukocyte Esterase-Dipstick 25 /ul (Negative); Nitrite-Dipstick Positive (Negative); Occult Blood-Urine 250 /ul (Negative); Protein-Dipstick 100 mg/dl (Negative); Specific Gravity, Urine 1.025 (1.002-1.030); Urine Clarity Turbid (Clear); Urine Urobilinogen 1 mg/dl (Normal)
[2021-10-05 15:09] LABS: Urine Bilirubin Dipstick 1 mg/dL (Negative)
[2021-10-05 15:27] LABS: Bacteria 1+ /hpf (None Seen); Red Blood Cells-Urine 25-50 SEEN /hpf (0-5); Squamous Epithelial Cells - UA 0-5 SEEN /hpf (5-10); White Blood Cells 0-5 SEEN /hpf (0-5)
== END | disposition home or self-care (01) ==
LOC: LABSPEC 14:36
PROVIDERS: PCP Internal Medicine; Referring Provider Physician Assistant; Visit Provider Physician Assistant
DX: R31.9 Hematuria, unspecified (principal)
CPT/HCPCS: 81001

== ENCOUNTER → 2021-10-07 | Outpatient (CLI) | payer MEDICAID, SELFPAY ==
[2021-10-07 12:51] LABS: BNP,B-Type NATRIURETIC PEPTIDE 16.3 pg/mL (0-100)
== END | disposition home or self-care (01) ==
LOC: BIMLAB 10:54
PROVIDERS: Physician Assistant; PCP Internal Medicine; Referring Provider Internal Medicine; Visit Provider Internal Medicine
DX: I50.22 Chronic systolic (congestive) heart failure (principal); U07.1 COVID-19
CPT/HCPCS: 87635; 36415; 83880; U0003; U0005

== ENCOUNTER → 2021-10-13 | Outpatient (CLI) | payer MEDICAID, SELFPAY ==
[2021-10-13 14:38] LABS: Mucous, Urine 0 SEEN /hpf (<or=2+)
[2021-10-13 15:34] LABS: Color, Urine Yellow (Yellow); Glucose, Dipstick 1000 mg/dl (Normal); Ketone-Dipstick 50 mg/dl (Negative); Leukocyte Esterase-Dipstick 100 /ul (Negative); Nitrite-Dipstick Negative (Negative); Occult Blood-Urine Negative /ul (Negative); Protein-Dipstick 30 mg/dl (Negative); Specific Gravity, Urine 1.015 (1.002-1.030); Urine Clarity Clear (Clear); Urine Urobilinogen 1 mg/dl (Normal)
[2021-10-13 15:57] LABS: Urine Bilirubin Dipstick 1 mg/dL (Negative)
[2021-10-13 16:03] LABS: Bacteria RARE /hpf (None Seen); Red Blood Cells-Urine 0-5 SEEN /hpf (0-5); Squamous Epithelial Cells - UA 0-5 SEEN /hpf (5-10); White Blood Cells 5-10 SEEN /hpf (0-5); Yeast-Urine 2+ /hpf (None Seen)
[2021-10-13 16:04] LABS: Coarse Granular Cast 0-5 SEEN /lpf (0-5 /lpf)
== END | disposition home or self-care (01) ==
PROVIDERS: PCP Internal Medicine; Visit Provider Physician Assistant
DX: R31.9 Hematuria, unspecified (principal); R10.9 Unspecified abdominal pain
CPT/HCPCS: 81001; 87086; 87088

== ENCOUNTER → 2022-03-25 | Outpatient (CLI) | payer BC, SELFPAY | END | disposition home or self-care (01) | LOC: LABSPEC 11:00 | PROVIDERS: PCP Internal Medicine; Referring Provider Physician Assistant; Visit Provider Physician Assistant | DX: S31.109A Unspecified open wound of abdominal wall, unspecified quadrant without penetration into peritoneal cavity, initial encounter (principal) | CPT/HCPCS: 87070; 87205 ==

== ENCOUNTER 2022-04-19 08:45 | Outpatient (RCR) | payer BC, SELFPAY ==
[2022-04-05 08:51] VITALS: BP 113/98; PULSE 121; RESP 20; TEMP 35.9; BMI 36.3
--- NOTE | 2022-04-05 11:44 | PCM.WC.HP ---
History of Present Illness Date of Service: 04/05/22 Chief Complaint: Lower abdominal wound/pain in healed scarring. History of Wound: Patient is a 46 year old female who presents today for evaluation of a painful wound in the center of her healed lower abdominal incision. She states that she had pain and drainage that started a couple weeks ago. She has been placing Aquacel-Ag on the area and went to see her PCP who placed her on Doxycycline. She was only able to take the Doxycycline for a couple days because she developed nausea and vomiting so she stopped it. Her placed the Aquacel-Ag every day and the drainage has stopped. She continues to have increased pain in this area. Today there is actually no wound/ulcer present. She has a history of a surgical preparation posterior neck with incision and drainage and excisional debridement multiple necrotizing diabetic abscess wounds (45 cm2) and a surgical preparation right lower abdominal wall with incision and drainage and excisional debridement skin and subcutaneous tissue for necrotizing soft tissue diabetic abscess wound (231 cm2) on 05/02/18. She has a history of Hidradenitis, Cardiomyopathy with ICD, DM with HgbA1c 8.4 (03/25/22), HTN. Progress of Wound: Patient comes into the wound healing center for evaluation of a wound on her lower abdomen that has been draining, bleeding and very painful. She has been placing Aquacel-Ag on the area that she had left over from her surgery from 2019. There is no wound today. It is tender to palpation but no drainage. FOR[facility], [facility] Medical History Abdominal panniculus, symptomatic Abscess of maxilla Anxiety and depression Arthritis Cardiomyopathy, dilated, nonischemic Chronic systolic (congestive) heart failure COVID Dentalgia Diverticulitis Essential hypertension Facial cellulitis History of MRSA infection Hyperlipidemia IBS (irritable bowel syndrome) ICD (implantable cardioverter-defibrillator) discharge (11/24/20) Insomnia Intertriginous dermatitis associated with moisture Migraines Morbid obesity due to excess calories Neuropathy Neuropathy Nonhealing surgical wound Obesity Open wound of abdominal wall with complication Open wound of neck with complication ANA (obstructive sleep apnea) ANA on CPAP Syncope (08/07/20) Tachycardia Type 2 diabetes mellitus Type 2 diabetes mellitus without complication Home Medications multivit with ktjazjtt-czih-DM-lutein 8 mg iron-400 mcg-300 mcg tablet 1 tablet PO DAILY supplement 05/30/19 [History Last Taken 06/18/20 08:00] Handicap Placard #1 ea 06/06/19 [Rx Last Taken Unknown] ketoconazole 2 % shampoo 1 applic topical 2XW Dandruf 06/18/20 [History Last Taken 06/18/20 11:02] blood-glucose meter #1 ea 11/19/20 [Rx Last Taken Unknown] blood sugar diagnostic (Blood Glucose Test strips) #100 ea 11/20/20 [Rx Last Taken Unknown] rosuvastatin 10 mg tablet (Crestor) 10 mg PO DAILY #90 tabs 02/02/21 [Rx Last Taken Unknown] furosemide 40 mg tablet 40 mg PO DAILY Diuretic #90 tabs 05/11/21 [Rx Last Taken Unknown] ivabradine 5 mg tablet (Corlanor) See Rx Instructions .Route .COMPLEX #60 tabs 05/14/21 [Rx Last Taken Unknown] diltiazem HCl 120 mg capsule,extended release 24 hr 120 mg PO BID Heart #180 caps 06/08/21 [Rx Last Taken Unknown] cholecalciferol (vitamin D3) 50 mcg (2,000 unit) capsule 2,000 unit PO DAILY supplement #90 caps 06/10/21 [Rx Last Taken Unknown] nystatin 100,000 unit/gram topical powder 1 applic topical TID #60 grams 08/11/21 [Rx Last Taken Unknown] omeprazole 40 mg capsule,delayed release 40 mg PO DAILY GERD #90 caps 10/07/21 [Rx Last Taken Unknown] fluticasone propionate 50 mcg/actuation nasal spray,suspension 1 spray intranasal BID PRN allergies, congestion #16 grams 10/13/21 [Rx Last Taken Unknown] ondansetron 4 mg disintegrating tablet 4 mg PO Q8H PRN nausea and vomiting #30 tabs 10/13/21 [Rx Last Taken Unknown] fluconazole 150 mg tablet (Diflucan) 150 mg PO ONCE yeast #1 TAB 10/15/21 [Rx Last Taken Unknown] lancets #100 ea 11/18/21 [Rx Last Taken Unknown] mecobalamin (vitamin B12) 1,000 mcg chewable tablet 1,000 mcg PO DAILY Supplement #30 tabs 11/18/21 [Rx Last Taken Unknown] montelukast 10 mg tablet 10 mg PO DAILY #30 tabs 11/18/21 [Rx Last Taken Unknown] empagliflozin 25 mg tablet (Jardiance) 25 mg PO QAM #30 tabs 12/07/21 [Rx Last Taken Unknown] melatonin 10 mg tablet 10 mg PO QHS sleep #30 tabs 01/15/22 [Rx Last Taken Unknown] potassium chloride 20 mEq tablet,extended release 40 meq PO BID 30 days #120 tabs 01/15/22 [Rx Last Taken Unknown] carvedilol 25 mg tablet 37.5 mg PO BID BP #270 tabs 01/22/22 [Rx Last Taken Unknown] aspirin 81 mg tablet,delayed release 81 mg PO DAILY@0800 heart health #90 tabs 02/16/22 [Rx Last Taken Unknown] duloxetine 60 mg capsule,delayed release 60 mg PO BID Depression #180 caps 02/16/22 [Rx Last Taken Unknown] gabapentin 800 mg tablet 800 mg PO TID NEUROPATHY #270 tabs 02/16/22 [Rx Last Taken Unknown] metformin 1,000 mg tablet 1,000 mg PO BID Diabetes 3 months #180 tabs 02/16/22 [Rx Last Taken Unknown] dulaglutide 4.5 mg/0.5 mL subcutaneous pen injector 4.5 mg (0.5 mL) subcut QWEEK Diabetes 3 months #6.5 mL 03/25/22 [Rx Last Taken Unknown] insulin glargine 100 unit/mL (3 mL) subcutaneous pen 47 unit (0.47 mL) subcut QPM Diabetes #15 mL 03/25/22 [Rx Last Taken Unknown] L.acidophil,salivari-Bifido bifidum-Strep thermoph 175 mg capsule (Acidophilus Probiotic Blend) 1 cap PO DAILY 20 days #20 caps 04/06/22 [Rx Last Taken Unknown] clindamycin HCl 300 mg capsule 300 mg PO TID 10 days #30 caps 04/06/22 [Rx Last Taken Unknown] Allergy/AdvReac Type Severity Reaction Status Date / Time doxycycline Allergy Upset Verified 04/05/22 09:38 Stomach pregabalin [From Lyrica] Allergy Other Verified 04/05/22 09:06 sulfamethoxazole Allergy Rash Verified 04/05/22 09:06 [From Bactrim] tramadol HCl [From Ultram] Allergy Swelling Verified 04/05/22 09:06 trimethoprim [From Bactrim] Allergy Rash Verified 04/05/22 09:06 vancomycin Allergy Swelling Verified 04/05/22 09:06 Family History Other Arthritis Breast cancer CVA (cerebral vascular accident) Depression Diabetes Heart disease Hyperlipemia Hypertension Kidney disease Thyroid disorder Surgical History History of cholecystectomy History of dental surgery History of hysterectomy History of implantable cardiac defibrillator (ICD) (11/15/19) History of left heart catheterization (06/01/19) History of neck surgery navel removal Social History Smoking Status: Never smoker alcohol intake: never substance use type: does not use caffeine: No what type of physical activity do you participate in: none ROS Constitutional Constitutional: Denies chills, fever(s) or frequent falls Eyes Eyes: Reports systems reviewed and no addt'l complaints, except as documented ENT HEENT: Reports systems reviewed and no addt'l complaints, except as documented Cardiovascular Cardiovascular: Reports hypertension and other Details: history CHF with ICD placed ; Denies chest pain Respiratory/Chest Respiratory/Chest: Denies cough or dyspnea Gastrointestinal Gastrointestinal: Denies abdominal pain Genitourinary Genitourinary: Reports none Musculoskeletal Musculoskeletal: Denies extremity pain or joint pain Integumentary Integumentary: Reports skin pain and wounds Neurologic Neurologic: Reports numbness Psychiatric Psychiatric: Reports systems reviewed and no addt'l complaints, except as documented Vital Signs Vital Signs Vital Signs: 04/05/22 08:51 Temperature 96.7 F L Temperature Source Temporal Pulse Rate 121 H Respiratory Rate 20 H Blood Pressure 113/98 H Blood Pressure Mean 103 Blood Pressure Source Monitor Weight Weight: 185 lb 13.683 oz Body Mass Index (BMI) 36.3 Physical Exam Const alert, oriented x3, no apparent distress and well nourished General Appearance: cooperative and comfortable HEENT normocephalic Eyes General Eye: normal appearance of both eyes Neck full ROM Lymph Lymphatic: no lymphedema noted Resp normal respiratory effort, normal air movement and clear to auscultation bilaterally Effort and Inspection: able to speak in complete sentences Cardio regular rate and regular rhythm GI soft to palpation and non-tender Extremity full ROM and normal capillary refill Skin no rashes or lesions noted Skin Narrative: Central lower abdominal incision is healed, it is mildly erythematous and tender to palpation. No drainage present, no firmness, just tenderness. Neuro oriented x3 and moves all extremities Psych mental status grossly normal, thought process normal, cooperative and affect normal Debridement Note Debridement Note No debridement was completed: No debridement was completed today Post-Debridement Measurements and Additional Note: Post-Debridement Measurements/Treatment - Nurse 1 - General Ulcer Assessment Start: 04/05/22 08:48 Freq: Status: Active Protocol: [email or web address] Activity Type Activity Date Activity User E-sign Co-sign Detail Recorded Client Recorded Date Recorded By Document 04/05/22 08:51 DL [id number] 04/05/22 09:02 DL 04/05/22 08:51 - Today's Visit Information Type of service Initial Visit Arrival Mode Ambulatory Transfer Assistance None Patient Identification Verified (Name & Yes ) Patient Requires Transmission-Based No Precautions Height and Weight Height 5 ft Weight 185 lb 13.683 oz Weight in Pounds 185.9 lbs Body Mass Index (BMI) 36.3 BMI Classification Obese BSA - Damian 1.81 Vital Signs Temperature (97.8 F-99.1 F) 96.7 F L Temperature Source Temporal Pulse Rate (60-100) 121 H Pulse Location Monitor Respiratory Rate (12-18) 20 H Respiratory rate source Observation Blood Pressure (90/60-120/80) 113/98 H Blood Pressure Mean 103 Source Monitor Pain Scale: 0-10 Numeric Is Patient Pain Free? Yes Communication Assessment Preferred language Nigerien Able to Read Yes Able to Write Yes Communication Tools None Right Hearing Abillity Normal Left Hearing Abillity Normal Visual Assistive Devices Glasses Teaching Assessment Preferences Verbal,Written, Demonstration Barriers to Learning None Readiness To Learn Good Willingness to Engage in Self Management Med Activies Readiness to Engage in Self Management Med Activities Anxiety Level Calm Cooperation Cooperative Perception Coherent Interest in Health Problem Asks Questions Education Importance Acknowledges Need Does Patient Smoke tobacco or other No substances Smoking Status Never smoker Is Patient Diabetic Yes Functional Assessment Recent Decline in Ability to Perform Denies Any Declines Culture/Yazidi/Dietitian Teaching Cultural/Yazidi Needs that may affect No Treatment Plan Would you allow our hospital die trimmer to No meet you for the purpose of spiritual/ emotional support? Dietitian Teaching to contact place of presybeterian No Teaching: Wound Center Discharge Instructions -Person Taught Patient *Infection -Person Taught Patient *Pain Management -Person Taught Patient -Response to teaching Return demonstration *Debridement -Person Taught Patient Skin Care -Person Taught Patient Dressing Your Wound -Person Taught Patient *Welcome to the Wound Center -Person Taught Patient WC - Nurse 1 - General Ulcer Measurement Start: 04/05/22 08:48 Freq: Status: Active Protocol: Activity Type Activity Date Activity User E-sign Co-sign Detail Recorded Client Recorded Date Recorded By Document 04/05/22 08:51 DL [id number] 04/05/22 09:02 DL 04/05/22 08:51 Wound Center Nurse 1 #4 Lower Abd -Current Size (cm) - Length 0 -Current Size (cm) - Width 0 -Current Size (cm) - Depth 0 -Total Square Cm 0 -Photo Taken Yes -Exudate Amt None Present -Wound Margin Flat & Intact -Granulation Amt Large (67-100%) -Granulation Quality [place] -Necrosis Amt None Present (0 %) -Structure Exposed N/A -Texture (Yumiko-wound Skin Appearance) Scarring -Moisture (Yumiko-wound Skin Appearance) No Abnormality -Color (Yumiko-wound Skin Appearance) No Abnormality, Ecchymosis -Temperature (Yumiko-wound Skin No Abnormality Appearance) (Pt Warm) -Tenderness on Palpation (Yumiko-wound Yes Skin Appearance) -Ulcer Cleansing Soap and Water -Foul Odor after Cleansing No -Anesthetic Used 5% Lidocaine Gel WC - Nurse 2 - General Ulcer CM Notes Start: 04/05/22 08:48 Freq: Status: Active Protocol: Activity Type Activity Date Activity User E-sign Co-sign Detail Recorded Client Recorded Date Recorded By Document 04/05/22 09:34 TRES [id number] 04/05/22 09:35 TRES 04/05/22 09:34 Wound Center Nurse 2 -Correct Patient No -Correct Side, Site, Position No -Correct Procedure No -Procedure Performed No -Wound/Ulcer Outcome Healed- Epithelialized Pain Scale: 0-10 Numeric Is Patient Pain Free? Yes - Nurse 3 - General Ulcer D/C NN Start: 04/05/22 08:48 Freq: Status: Active Protocol: Activity Type Activity Date Activity User E-sign Co-sign Detail Recorded Client Recorded Date Recorded By Document 04/05/22 09:36 TRES [id number] 04/05/22 09:37 TRES 04/05/22 09:36 Is Patient Pain Free? Yes WC - Visit Discharge Discharge Condition Stable Ambulatory Status Ambulatory Transportation Private Auto Accompanied by Medication Reconcilliation completed & Yes provided to patient/care provider Clinical Summary of Care Provided Yes Charges/Coding Visit Charges Office Visits / Consults: 99842 OV L3 Est Assessment/Plan Assessment/Plan (1) Scar pain: CODE(S): L90.5 - Scar conditions and fibrosis of skin (2) History of delayed wound healing: CODE(S): Z87.898 - Personal history of other specified conditions (3) Type 2 diabetes mellitus: CODE(S): E11.9 - Type 2 diabetes mellitus without complications QUALIFIERS: Diabetes mellitus casing splitter insulin use: with snf use Diabetes mellitus complication status: with neurologic complications Diabetes mellitus complication detail: with polyneuropathy Qualified Code(s): E11.42 - Type 2 diabetes mellitus with diabetic polyneuropathy; Z79.4 - celery stripper (current) use of insulin PLAN: Plan Patient evaluated at the wound healing center today. She currently does not have an open wound. She has pain and tenderness with mild erythema on her lower abdominal healed incision from 2019. She states it had been draining but it no longer is. She was on Doxycycline from her PCP for a couple days until she developed nausea, vomiting and diarrhea so she stopped it. Will start her on a course of Clindamycin x 10 days and probiotic. Instructed to keep this area clean and dry. Encouraged a high protein, low carbohydrate diet. Follow up 2 weeks. Call or come in sooner if have and concerns.
[2022-04-19 08:40] VITALS: BP 137/85; PULSE 96; TEMP 35.6; BMI 36.3
--- NOTE | 2022-04-19 09:48 | PCM.WC.PN ---
History of Present Illness Date of Service: 04/19/22 Chief Complaint: Lower abdominal wound/pain in healed scarring. History of Wound: Patient is a 46 year old female who presents today for evaluation of a painful wound in the center of her healed lower abdominal incision. She states that she had pain and drainage that started a couple weeks ago. She has been placing Aquacel-Ag on the area and went to see her PCP who placed her on Doxycycline. She was only able to take the Doxycycline for a couple days because she developed nausea and vomiting so she stopped it. Her placed the Aquacel-Ag every day and the drainage has stopped. She continues to have increased pain in this area. Today there is actually no wound/ulcer present. She has a history of a surgical preparation posterior neck with incision and drainage and excisional debridement multiple necrotizing diabetic abscess wounds (45 cm2) and a surgical preparation right lower abdominal wall with incision and drainage and excisional debridement skin and subcutaneous tissue for necrotizing soft tissue diabetic abscess wound (231 cm2) on 05/02/18. She has a history of Hidradenitis, Cardiomyopathy with ICD, DM with HgbA1c 8.4 (03/25/22), HTN. Progress of Wound: She has a red rash in the crease of her lower abdomen, it looks like yeast. She states that it ann. She has a small superfical area that looks like an abrasion. Objective Data Objective Data Vital Signs: Vital Signs Temp Pulse Resp BP 96.1 F L 96 20 H 137/85 H 04/19/22 08:40 04/19/22 08:40 04/05/22 08:51 04/19/22 08:40 Weight: 185 lb 13.683 oz Body Mass Index (BMI) 36.3 Charges/Coding Visit Charges Office Visits / Consults: [id number] OV L3 Est Physical Exam Const alert, oriented x3, no apparent distress and well nourished General Appearance: cooperative HEENT normocephalic Eyes General Eye: normal appearance of both eyes Resp normal respiratory effort, normal air movement and clear to auscultation bilaterally Effort and Inspection: able to speak in complete sentences Cardio regular rate and regular rhythm GI soft to palpation and non-tender Extremity full ROM and normal capillary refill Skin no rashes or lesions noted Skin Narrative: She has a red, yeasty like rash on her lower abdomen where there is a superficial abrasion. Neuro oriented x3 and moves all extremities Psych cooperative and affect normal Debridement Note Debridement Note No debridement was completed: No debridement was completed today Post-Debridement Measurements and Additional Note: Post-Debridement Measurements/Treatment - Nurse 1 - General Ulcer Assessment Start: 04/05/22 08:48 Freq: Status: Active Protocol: [email or web address].LOWEXT Activity Type Activity Date Activity User E-sign Co-sign Detail Recorded Client Recorded Date Recorded By Document 04/05/22 08:51 DL [id number] 04/05/22 09:02 DL Document 04/19/22 08:40 AK [id number] 04/19/22 08:41 AK 04/05/22 04/19/22 08:51 08:40 WC - Today's Visit Information Type of service Initial Visit Follow-up Visit (Physician/COMMUNITY ENGAGEMENT MANAGER ) Arrival Mode Ambulatory Ambulatory Transfer Assistance None Patient Identification Verified (Name & Yes Yes ) Patient Requires Transmission-Based No No Precautions Safety Precautions NA Height and Weight Height 5 ft Weight 185 lb 13.683 oz Weight in Pounds 185.9 lbs Body Mass Index (BMI) 36.3 36.3 BMI Classification Obese Obese BSA - Damian 1.81 Vital Signs Temperature (97.8 F-99.1 F) 96.7 F L 96.1 F L Temperature Source Temporal Temporal Pulse Rate (60-100) 121 H 96 Pulse Location Monitor Monitor Respiratory Rate (12-18) 20 H Respiratory rate source Observation Blood Pressure (90/60-120/80) 113/98 H 137/85 H Blood Pressure Mean (mm Hg) 103 102 Source Monitor Monitor History Since Last Visit- (Skip if this is Patient's initial visit) Have you changed medications since your No last visit? Any new allergies or adverse reactions No Had a fall/change in ADL's that may No increase risk of falls Signs or symptoms of abuse and/or No neglect since last visit Have you been in the hospital since your No last visit? Has dressing in place as prescribed No Has compression in place as prescribed N/A Has offloadiing in place as prescribed N/A Experienced any changes in pain level or No management Left Footwear Regular Shoe Right Footwear Regular Shoe Pain Scale: 0-10 Numeric Is Patient Pain Free? Yes Yes Communication Assessment Preferred language Jamaican Able to Read Yes Able to Write Yes Communication Tools None Right Hearing Abillity Normal Left Hearing Abillity Normal Visual Assistive Devices Glasses Teaching Assessment Preferences Verbal,Written, Demonstration Barriers to Learning None Readiness To Learn Good Willingness to Engage in Self Management Med Activies Readiness to Engage in Self Management Med Activities Anxiety Level Calm Cooperation Cooperative Perception Coherent Interest in Health Problem Asks Questions Education Importance Acknowledges Need Does Patient Smoke tobacco or other No substances Smoking Status Never smoker Is Patient Diabetic Yes Functional Assessment Recent Decline in Ability to Perform Denies Any Declines Culture/Adventist/V Belt Mold Assembler And Curer Cultural/Adventist Needs that may affect No Treatment Plan Would you allow our hospital apparel manufacture instructor to No meet you for the purpose of spiritual/ emotional support? V Belt Mold Assembler And Curer to contact place of anabaptist No Teaching: Wound Center Discharge Instructions -Person Taught Patient *Infection -Person Taught Patient *Pain Management -Person Taught Patient -Response to teaching Return demonstration *Debridement -Person Taught Patient Skin Care -Person Taught Patient Dressing Your Wound -Person Taught Patient *Welcome to the Wound Center -Person Taught Patient RENZO - Nurse 1 - General Ulcer Measurement Start: 04/05/22 08:48 Freq: Status: Active Protocol: Activity Type Activity Date Activity User E-sign Co-sign Detail Recorded Client Recorded Date Recorded By Document 04/05/22 08:51 DL [id number] 04/05/22 09:02 DL 04/05/22 08:51 Wound Center Nurse 1 #4 Lower Abd -Current Size (cm) - Length 0 -Current Size (cm) - Width 0 -Current Size (cm) - Depth 0 -Total Square Cm 0 -Photo Taken Yes -Exudate Amt None Present -Wound Margin Flat & Intact -Granulation Amt Large (67-100%) -Granulation Quality [place] -Necrosis Amt None Present (0 %) -Structure Exposed N/A -Texture (Yumiko-wound Skin Appearance) Scarring -Moisture (Yumiko-wound Skin Appearance) No Abnormality -Color (Yumiko-wound Skin Appearance) No Abnormality, Ecchymosis -Temperature (Yumiko-wound Skin No Abnormality Appearance) (Pt Warm) -Tenderness on Palpation (Yumiko-wound Yes Skin Appearance) -Ulcer Cleansing Soap and Water -Foul Odor after Cleansing No -Anesthetic Used 5% Lidocaine Gel RENZO - Nurse 2 - General Ulcer CM Notes Start: 04/05/22 08:48 Freq: Status: Active Protocol: Activity Type Activity Date Activity User E-sign Co-sign Detail Recorded Client Recorded Date Recorded By Document 04/05/22 09:34 [id number] 04/05/22 09:35 Document 04/19/22 08:51 [id number] 04/19/22 08:51 04/05/22 04/19/22 09:34 08:51 Wound Center Nurse 2 -Correct Patient No -Correct Side, Site, Position No -Correct Procedure No -Procedure Performed No -Wound/Ulcer Outcome Healed- Epithelialized Pain Scale: 0-10 Numeric Is Patient Pain Free? Yes Yes - Nurse 3 - General Ulcer D/C NN Start: 04/05/22 08:48 Freq: Status: Active Protocol: Activity Type Activity Date Activity User E-sign Co-sign Detail Recorded Client Recorded Date Recorded By Document 04/05/22 09:36 [id number] 04/05/22 09:37 Document 04/19/22 08:51 [id number] 04/19/22 08:52 04/05/22 04/19/22 09:36 08:51 Pain Scale: 0-10 Numeric Is Patient Pain Free? Yes Yes - Visit Discharge Discharge Condition Stable Stable Ambulatory Status Ambulatory Ambulatory Transportation Private Auto Private Auto Accompanied by Medication Reconcilliation completed & Yes Yes provided to patient/care provider Clinical Summary of Care Provided Yes Yes Assessment/Plan Assessment/Plan (1) Candidal skin infection: CODE(S): B37.2 - Candidiasis of skin and nail (2) Scar pain: CODE(S): L90.5 - Scar conditions and fibrosis of skin (3) Type 2 diabetes mellitus: CODE(S): E11.9 - Type 2 diabetes mellitus without complications QUALIFIERS: Diabetes mellitus prison insulin use: with prison use Diabetes mellitus complication status: with neurologic complications Diabetes mellitus complication detail: with polyneuropathy Qualified Code(s): E11.42 - Type 2 diabetes mellitus with diabetic polyneuropathy; Z79.4 - [facility] (current) use of insulin (4) History of delayed wound healing: CODE(S): Z87.898 - Personal history of other specified conditions PLAN: Plan Patient evaluated at the wound healing center today. She currently does not have an open wound. She has an erythema rash in her lower abdominal skin fold where her healed incision is located and there is a small abrasion. She states that this area ann. Instructed her to start using nystatin powder to this area twice daily until the rash resolves then an additional 7 days after that, she states she has nystatin powder at home. She was on Doxycycline from her PCP for a couple days until she developed nausea, vomiting and diarrhea so she stopped it. She completed the Clindamycin x 10 days and probiotic which helped with the painful area where she had drainage, which has now completely resolved. Instructed to keep this area clean and dry. Discussed drying to put Interdry gauze in her skin fold to help wick the mosture away. Encouraged a high protein, low carbohydrate diet. Follow up as needed.
== END 2022-04-27 23:59 | disposition home or self-care (01) ==
LOC: WC 08:45
PROVIDERS: PCP Internal Medicine; Visit Provider Nurse Practitioner Family
DX: B37.2 Candidiasis of skin and nail (principal); I11.0 Hypertensive heart disease with heart failure; I42.0 Dilated cardiomyopathy; I50.22 Chronic systolic (congestive) heart failure; E11.42 Type 2 diabetes mellitus with diabetic polyneuropathy; Z79.4 Long term (current) use of insulin; S30.811A Abrasion of abdominal wall, initial encounter; X58.XXXA Exposure to other specified factors, initial encounter; L90.5 Scar conditions and fibrosis of skin; E78.5 Hyperlipidemia, unspecified; Z79.82 Long term (current) use of aspirin; Z79.899 Other long term (current) drug therapy; Z86.14 Personal history of Methicillin resistant Staphylococcus aureus infection; Z95.810 Presence of automatic (implantable) cardiac defibrillator
CPT/HCPCS: 99213; G0463

== ENCOUNTER → 2022-06-30 | Outpatient (CLI) | payer BC, MEDICAID, SELFPAY ==
[2022-06-30 12:59] LABS: Absolute Lymphocyte Count 4.44 X10^3/uL (0.83-4.51); Absolute Neutrophil Count 6.2 X10^3/uL (2.0-7.7); Basophil# 0.07 X10^3/uL; Basophil% 0.6 % (0-1); Eosinophil# 0.23 X10^3/uL; Eosinophils% 1.9 % (0-5); Hematocrit 49.9 % (37-47); Hemoglobin 16.1 g/dL (12.0-15.0); Lymphocyte # 4.44 X10^3/ul (0.83-4.51); Lymphocyte % 36.2 % (19-41); Mean Corp Hgb Conc 32.3 g/dL (32-36); Mean Corpuscular Hgb 28.4 pg (27.0-32.0); Mean Platelet Vol. 11.7 fl (6.2-12.0); Monocyte# 1.32 X10^3/uL; Monocyte% 10.7 % (0-10); NRBC Flagged by Analyzer 0 % (0-5); Neutrophil # 6.16 X10^3/uL (2.7-7.7); Neutrophil % 50.1 % (47-70); Platelet Count 323 K/mm3 (150-450); RBC Distribution Width CV 13.3 % (11.6-14.6); RBC Distribution Width SD 42.9 fl (35.1-43.9); Red Blood Count 5.67 M/mm3 (4.2-5.4); White Blood Count 12.3 K/mm3 (4.4-11.0)
[2022-06-30 13:21] LABS: BNP,B-Type NATRIURETIC PEPTIDE 4.7 pg/mL (0-100)
[2022-06-30 13:23] LABS: Anion Gap 8 (5-15); BUN 20 mg/dL (7-18); BUN/Creat Ratio 26.3 RATIO (10-20); Chloride 98 mmol/L (98-107); Creatinine, Serum 0.76 mg/dL (0.55-1.02); EST Glomerular Filtration Rate 88 mL/min (>60); Est Glom Filt Rate - Afr Amer 106 mL/min (>60); Glucose 367 mg/dL (74-106); Potassium 4.2 mmol/L (3.5-5.1); Sodium Level 133 mmol/L (136-145)
== END | disposition home or self-care (01) ==
LOC: LAB 11:17
PROVIDERS: PCP Internal Medicine; Referring Provider Nurse Practitioner Family; Visit Provider Nurse Practitioner Family
DX: R06.09 Other forms of dyspnea (principal); I42.0 Dilated cardiomyopathy
CPT/HCPCS: 36415; 80048; 83880; 85025

== ENCOUNTER → 2022-07-05 | Outpatient (CLI) | payer BC, MEDICAID, SELFPAY | END | disposition home or self-care (01) | LOC: PSN 08:40 | PROVIDERS: PCP Internal Medicine; Referring Provider Nurse Practitioner Family; Visit Provider Nurse Practitioner Family | DX: R06.00 Dyspnea, unspecified (principal); I42.0 Dilated cardiomyopathy; R00.0 Tachycardia, unspecified | CPT/HCPCS: 93225; 93226 ==

== ENCOUNTER → 2022-07-14 | Outpatient (CLI) | payer BC, MEDICAID, SELFPAY | END | disposition home or self-care (01) | LOC: SL 19:32 | PROVIDERS: PCP Internal Medicine; Referring Provider Internal Medicine; Visit Provider Internal Medicine | DX: G47.33 Obstructive sleep apnea (adult) (pediatric) (principal) | CPT/HCPCS: 95811 ==

== ENCOUNTER → 2023-01-13 | Outpatient (CLI) | payer BC, MEDICAID, SELFPAY ==
[2023-01-13 15:25] LABS: Mucous, Urine 0 SEEN /hpf (<or=2+); Red Blood Cells-Urine 0 SEEN /hpf (0-5); Squamous Epithelial Cells - UA 0 SEEN /hpf (5-10)
[2023-01-13 16:45] LABS: Color, Urine Yellow (Yellow); Glucose, Dipstick 1000 mg/dl (Normal); Ketone-Dipstick Negative (Negative); Leukocyte Esterase-Dipstick 25 /ul (Negative); Nitrite-Dipstick Negative (Negative); Occult Blood-Urine Negative /ul (Negative); Protein-Dipstick Negative (Negative); Specific Gravity, Urine 1.015 (1.002-1.030); Urine Bilirubin Dipstick Negative (Negative); Urine Clarity Clear (Clear); Urine Urobilinogen Normal (Normal)
[2023-01-13 16:46] LABS: Absolute Lymphocyte Count 3.84 X10^3/uL (0.83-4.51); Absolute Neutrophil Count 4.2 X10^3/uL (2.0-7.7); Basophil# 0.04 X10^3/uL; Basophil% 0.4 % (0-1); Eosinophils% 1.1 % (0-5); Hematocrit 49.3 % (37-47); Hemoglobin 15.5 g/dL (12.0-15.0); Lymphocyte # 3.84 X10^3/ul (0.83-4.51); Lymphocyte % 41.5 % (19-41); Mean Corp Hgb Conc 31.4 g/dL (32-36); Mean Corpuscular Hgb 27.6 pg (27.0-32.0); Mean Corpuscular Volume 87.9 fL (81-99); Mean Platelet Vol. 12.5 fl (6.2-12.0); Monocyte# 1.02 X10^3/uL; NRBC Flagged by Analyzer 0 % (0-5); Neutrophil # 4.23 X10^3/uL (2.7-7.7); Neutrophil % 45.7 % (47-70); Platelet Count 247 K/mm3 (150-450); RBC Distribution Width CV 12.5 % (11.6-14.6); RBC Distribution Width SD 40.2 fl (35.1-43.9); Red Blood Count 5.61 M/mm3 (4.2-5.4); White Blood Count 9.3 K/mm3 (4.4-11.0)
[2023-01-13 17:26] LABS: ALB/GLOB Ratio 0.8 RATIO (0.9-2.4); AST(SGOT) 53 U/L (15-37); Alanine Aminotransfer ALT/SGPT 69 U/L (13-56); Albumin, Serum 3.4 g/dL (3.2-5.0); Alkaline Phosphatase 248 U/L (45-117); Anion Gap 9 (5-15); BUN 12 mg/dL (7-18); BUN/Creat Ratio 16.9 RATIO (10-20); CRP 5.97 mg/L (0.0-3.0); Calcium,Total 11.3 mg/dL (8.5-10.1); Chloride 99 mmol/L (98-107); Creatinine, Serum 0.71 mg/dL (0.55-1.02); EST Glomerular Filtration Rate 95 mL/min (>60); Est Glom Filt Rate - Afr Amer 114 mL/min (>60); Glucose 408 mg/dL (74-106); Potassium 4.3 mmol/L (3.5-5.1); Protein, Total 7.4 g/dL (6.4-8.2); Sodium Level 133 mmol/L (136-145); T4 Free Direct 1.19 ng/dL (0.76-1.46); Thyroid Stim Hormone (TSH) 1.38 uIU/mL (0.358-3.74)
[2023-01-13 17:30] LABS: Microalbumin,Random Urine 17.4 mg/L (NO RANGE EST.); Microalbumin:Creatinine Ratio 37.5 mg/g CRE (<30 mg/g CRE)
[2023-01-13 17:39] LABS: Bacteria RARE /hpf (None Seen); White Blood Cells 0-5 SEEN /hpf (0-5)
[2023-01-13 18:24] LABS: Hemoglobin A1c 10.4 % (3.8-5.6)
[2023-01-17 08:07] LABS: PTHIN 110.9 pg/mL (18.4-80.1)
== END | disposition home or self-care (01) ==
LOC: BIMLAB 15:24
PROVIDERS: PCP Internal Medicine; Referring Provider Internal Medicine; Visit Provider Internal Medicine
DX: Z13.29 Encounter for screening for other suspected endocrine disorder (principal); E11.9 Type 2 diabetes mellitus without complications; E83.52 Hypercalcemia; R53.81 Other malaise; R53.83 Other fatigue; R82.90 Unspecified abnormal findings in urine
CPT/HCPCS: 36415; 80053; 81001; 82043; 82306; 82570; 83036; 83970; 84439; 84443; 85025; 86140; 87077; 87086; 87088; 87186

== ENCOUNTER → 2023-03-08 | Outpatient (CLI) | payer BC, SELFPAY ==
[2023-03-08 13:18] LABS: Red Blood Cells-Urine 0 SEEN /hpf (0-5)
[2023-03-08 15:13] LABS: Color, Urine Yellow (Yellow); Glucose, Dipstick 50 mg/dl (Normal); Ketone-Dipstick Negative (Negative); Leukocyte Esterase-Dipstick 100 /ul (Negative); Nitrite-Dipstick Negative (Negative); Occult Blood-Urine Negative /ul (Negative); Protein-Dipstick 15 mg/dl (Negative); Urine Bilirubin Dipstick Negative (Negative); Urine Clarity Sl. Cloudy (Clear); Urine Urobilinogen Normal (Normal)
[2023-03-08 15:19] LABS: Bacteria 1+ /hpf (None Seen); Squamous Epithelial Cells - UA 0-5 SEEN /hpf (5-10); White Blood Cells 10-25 SEEN /hpf (0-5)
[2023-03-08 15:20] LABS: Mucous, Urine RARE /hpf (<or=2+)
== END | disposition home or self-care (01) ==
PROVIDERS: PCP Internal Medicine; Visit Provider Internal Medicine
DX: R82.90 Unspecified abnormal findings in urine (principal)
CPT/HCPCS: 81001; 87077; 87086; 87088; 87186

== ENCOUNTER → 2023-04-13 | Outpatient (CLI) | payer BC, SELFPAY ==
--- NOTE | 2023-04-13 11:23 | RAD_ITS ---
INDICATION: Right Hip Pain S/p Fall EXAMINATION/TECHNIQUE: X-RAY - XR Hip Unilateral with Pelvis when performed; 2-3 Views COMPARISON: FINDINGS: PELVIC BONES: No displaced fracture, destructive or sclerotic lesions. Note that overlapping bowel shadows may however obscure fine detail. Sacroiliac joints are unremarkable. No widening of the pubic symphysis. HIPS: The articular structures are unremarkable. No displaced fracture seen in this frontal view. SOFT TISSUES: No soft tissue swelling or gas. RAD/HIP, UNI W/ Pelvis 2-3 Views IMPRESSION: No evidence of displaced pelvic or hip fracture. Electronically Signed: Clyde Purvis DO at 17:08 EST Reading Location ID and State: [facility] / [place] Tel [phone], Service support ,
--- NOTE | 2023-04-13 11:23 | RAD_ITS ---
INDICATION: Right Shoulder Pain EXAMINATION/TECHNIQUE: X-RAY - RIGHT XR Shoulder 4 VIEWS COMPARISON: FINDINGS: SOFT TISSUES: No soft tissue swelling or gas. No radiopaque foreign body. BONES/JOINTS: No acute fracture or subluxation.. Normal alignment. Preservation of the joint space.. No sclerotic or destructive changes observed. RAD/Shoulder min 2 Views IMPRESSION: No acute bony injury. Electronically Signed: Clyde Purvis DO at 17:04 EST ,
--- OUTSIDE RECORDS SUMMARY | 2023-04-13 11:39 | XMS RPT_ITS | CCD ---
Author Name Unknown Address [address] [place] [address] Organization [facility] Care Team Providers Care Converting Technician Name Role Phone Slim Huerta Unavailable Unavailable KHUSHI COY Unavailable Unavailable BARBY LINDSEY Unavailable Unavailable Problems Active Problems Problem Classification Problem Date Documented Da te Episodic/Chronic Unclassified (1 source) Unknown / UNK(Unknown) Onset: 02-21-2017 Past or Other Problems Problem Classification Problem Date Documented Da te Episodic/Chronic Unclassified (1 source) DIFFICULTY SWALLOWING/TRIAGE Onset: 02-21-2017 Results Test Name Value Interpretation Reference Range Facil ity Encounters Encounter Date Encounter Type Care Provider Facility Start: 01-10-2018 End: 01-10-2018 Emergency department patient visit KHUSHI COY Facility:B Start: 02-21-2017 Emergency department patient visit Slim Huerta Facility:[facility] Payers Date Payer Category Payer Medicaid [id number] 2016 Private Health Insurance [id number] 1975 Unknown [id number] Clinical Note 06-06-2020 Note Date & Type Note Facility 06-06-2020 Note Patient Outreach ([facility]) JAIRO CHAIREZ ([id number]) 1975 F Date Time Provider Department 06/06/20 CHON EISENBERG During your visit today, we recorded the following information about you: Allergies As of Date: 06/06/2020 Noted Allergy Reaction LYRICA (PREGABALIN) 05/23/2017 1 - Mental Status Change Comments: Suicidal Thoughts BACTRIM (SULFAMETHOXAZOLE) 12/29/2013 4 - Hives KEFLEX (CEPHALEXIN) 05/23/2017 8 - GI Upset TRIMETHOPRIM 07/28/2017 2 - Rash ULTRAM (TRAMADOL HCL) 04/17/2012 4 - Hives Comments: rash VANCOMYCIN 04/13/2007 4 - Hives Date Reviewed: 07/26/2017 Reviewed by: Adriana Swann ([facility]) Emmanuel - Fully Assessed Order(s):SARS-COVID VACCINE 1ST DOSE APPT [[id number]] Order #: [id number] FUTURE Prescriptions as of 06/06/2020 Sig: ALBUTEROL SULFATE HFA 90 MCG/* Inhale 2 Puffs as instructed. INSULIN DETEMIR (U-100) 100 U* Inject 10 Units subcutaneousl* HYDROCORTISONE 2.5 % TOPICAL * Apply 1 application to affect* MECOBALAMIN (VITAMIN B12) 1,0* Take 1 tablet by mouth once d* FUROSEMIDE 40 MG TABLET Take 40 mg by mouth twice garry* KETOCONAZOLE 2 % SHAMPOO Apply 1 application to affect* LISINOPRIL 2.5 MG TABLET Take 2.5 mg by mouth once garry* MAGNESIUM 250 MG TABLET Take 250 mg by mouth once garry* METFORMIN 850 MG TABLET Take 850 mg by mouth twice da* POTASSIUM CHLORIDE ER 20 MEQ * Take 1 tablet by mouth twice * SIMVASTATIN 20 MG TABLET take 1 tablet by mouth at bed* DULOXETINE 60 MG CAPSULE,NICOLLE* TAKE 1 CAPSULE BY MOUTH TWICE* CHOLECALCIFEROL (VITAMIN D3) * Take 1 tablet by mouth once d* DICYCLOMINE 20 MG TABLET Take 1 tablet by mouth three * BUPROPION HCL SR 150 MG TABLE* TAKE 1 TABLET BY MOUTH TWICE * AMITRIPTYLINE 50 MG TABLET Take 1 tablet by mouth daily * MELATONIN 10 MG TABLET Take 1 tablet by mouth once d* BLOOD SUGAR DIAGNOSTIC STRIPS UAD to test blood sugar TID LANCETS Use as instructed up to 3 geoffrey* METOPROLOL SUCCINATE ER 25 MG* Take 1 tablet by mouth once d* INSULIN NPH ISOPHANE U-100 HU* Inject 12 units subcutaneousl* INSULIN SYRINGE U-100 WITH NE* Use with NPH insulin vial twi* CYCLOBENZAPRINE 10 MG TABLET Take 1 tablet by mouth every * VICTOZA 2-[place] 0.6 MG/0.1 ML (* Inject 1.2 mg subcutaneously * ASPIRIN 81 MG TABLET,DELAYED * Take 1 tablet by mouth once d* FLUTICASONE PROPIONATE 50 MCG* Use 2 Sprays in each nostril * PEN NEEDLE, DIABETIC 30 GAUGE* 1 each daily with victoza and* COMPOUNDED PRESCRIPTION [facility]* Problem List As Of Date 06/06/2020 Noted Resolved CELLULITIS NOS [L03.90, L02.91] 01/11/2007 HIDRADENITIS [L73.2] 01/11/2007 CELLULITIS OF ARM [[id number]] 01/11/2007 DM w/o Complication Type II [E11.9] 04/13/2007 05/01/2009 Panic disorder without agoraphobia [F41.0] 05/04/2007 PALPITATIONS [R00.2] 05/04/2007 CERVICAL SPINAL STENOSIS [M48.02] 11/29/2007 Abdominal pain, left lower quadrant [R10.32] 03/03/2011 Abdominal Pain, Right Lower Quadrant [R10.31] 04/08/2009 Irregular menstrual cycle [N92.6] 04/08/2009 03/03/2011 Dysmenorrhea [N94.6] 04/08/2009 03/03/2011 Unspecified constipation [K59.00] 04/08/2009 03/03/2011 Nausea [R11.0] Abdominal pain, generalized [R10.84] 05/09/2012 Diverticulosis of large intestine [K57.30] 05/09/2012 Internal hemorrhoids without mention of complic*05/09/2012 Uncontrolled type 2 diabetes mellitus with diab*09/30/2013 Staring spell (HCC) [VCP8955] 04/23/2014 More... Pilonidal cyst without abscess [L05.91] 11/08/2014 Chronic back pain [M54.9, G89.29] 04/21/2015 More... Diabetes mellitus with neurological manifestati*06/16/2015 Diabetic neuropathy, painful (HCC) [E11.40] 07/14/2015 Juvenile idiopathic scoliosis of lumbar region *07/14/2015 Osteoarthritis of lumbar spine [M47.816] 07/14/2015 DDD (degenerative disc disease), lumbar [M51.36]07/14/2015 Umbilical discharge [R19.8] 09/25/2015 Sinus tachycardia [R00.0] 05/10/2016 Neurocardiogenic syncope [R55] 05/10/2016 Atypical chest pain [R07.89] 05/10/2016 Elevated blood pressure, situational [R03.0] 05/10/2016 Morbid obesity due to excess calories (HCC) [E6*05/10/2016 Neck abscess [L02.11] 05/20/2017 More... Encounter Status:Closed by BECCA, PRODUSER on 06/09/20 [facility] Summary Purpose Family History No Family History Records FoundNo Family History Records FoundNo Family History Records FoundNo Family History Records FoundNo Family History Records Found Advance Directives No Advanced Directives Records FoundNo Advanced Directives Records FoundNo Advanced Directives Records FoundNo Advanced Directives Records FoundNo Advanced Directives Records Found Additional Source Comments INFORMATION SOURCE (unrecogn ized section and content) DATE CREATED AUTHOR AUTHOR'S ORGANIZ ATION 09/20/2017 [facility] DATE CREATED AUTHOR AUTHOR'S ORGANIZ ATION 02/25/2018 [facility] DATE CREATED AUTHOR AUTHOR'S ORGANIZ ATION 10/24/2019 [facility] DATE CREATED AUTHOR AUTHOR'S ORGANIZ ATION 05/04/2021 [facility] FOR RECORDS PERTAINING TO PATIENTS WHO ARE OR HAVE BEEN ENROLLED IN A CHEMICAL DEPENDENCY/SUBSTANCEABUSE PROGRAM, SOME INFORMATION MAY BE OMITTED. This clinical summary was aggregated from multiple sources. Caution should be exercised in using it in the provision of clinical care. This summary normalizes information from multiple sources, and as a consequence, information in this document may materially change the coding, format and clinical context of patient data. In addition, data may be omitted in some cases. CLINICAL DECISIONS SHOULD BE BASED ON THE PRIMARY CLINICAL RECORDS. [facility]. provides no warranty or guarantee of the accuracy or completeness of information in this document.
== END | disposition home or self-care (01) ==
PROVIDERS: PCP Internal Medicine; Referring Provider Internal Medicine; Visit Provider Internal Medicine
DX: M25.551 Pain in right hip (principal); M25.511 Pain in right shoulder; W19.XXXA Unspecified fall, initial encounter
CPT/HCPCS: 73030; 73502

== ENCOUNTER → 2023-08-10 | Outpatient (CLI) | payer MEDICAID, SELFPAY ==
[2023-08-10 16:57] LABS: Absolute Lymphocyte Count 4.21 X10^3/uL (0.83-4.51); Absolute Neutrophil Count 5.7 X10^3/uL (2.0-7.7); Basophil# 0.05 X10^3/uL; Basophil% 0.4 % (0-1); Eosinophil# 0.12 X10^3/uL; Eosinophils% 1.1 % (0-5); Hematocrit 48.9 % (37-47); Hemoglobin 15.6 g/dL (12.0-15.0); Lymphocyte # 4.21 X10^3/ul (0.83-4.51); Lymphocyte % 37.8 % (19-41); Mean Corp Hgb Conc 31.9 g/dL (32-36); Mean Corpuscular Hgb 27.7 pg (27.0-32.0); Mean Corpuscular Volume 86.9 fL (81-99); Mean Platelet Vol. 11.6 fl (6.2-12.0); Monocyte# 0.99 X10^3/uL; Monocyte% 8.9 % (0-10); NRBC Flagged by Analyzer 0 % (0-5); Neutrophil # 5.71 X10^3/uL (2.7-7.7); Neutrophil % 51.4 % (47-70); Platelet Count 280 K/mm3 (150-450); RBC Distribution Width CV 13.1 % (11.6-14.6); RBC Distribution Width SD 40.6 fl (35.1-43.9); Red Blood Count 5.63 M/mm3 (4.2-5.4); White Blood Count 11.1 K/mm3 (4.4-11.0)
[2023-08-10 17:20] LABS: ALB/GLOB Ratio 0.8 RATIO (0.9-2.4); AST(SGOT) 27 U/L (15-37); Alanine Aminotransfer ALT/SGPT 44 U/L (13-56); Albumin, Serum 3.5 g/dL (3.2-5.0); Alkaline Phosphatase 251 U/L (45-117); Anion Gap 7 (5-15); BUN 15 mg/dL (7-18); BUN/Creat Ratio 23.4 RATIO (10-20); Calcium,Total 12.4 mg/dL (8.5-10.1); Chloride 103 mmol/L (98-107); Cholesterol 201 mg/dL (200); Creatinine, Serum 0.64 mg/dL (0.55-1.02); EST Glomerular Filtration Rate 106 mL/min (>60); Est Glom Filt Rate - Afr Amer 128 mL/min (>60); Globulin 4.2 g/dL (2.2-4.2); Glucose 275 mg/dL (74-106); High Density Lipoprotein 40 mg/dL; Potassium 4.2 mmol/L (3.5-5.1); Protein, Total 7.7 g/dL (6.4-8.2); Sodium Level 136 mmol/L (136-145); Triglycerides 270 mg/dL; Very Low Density Lipoprotein 54 mg/dL (5-40)
== END | disposition home or self-care (01) ==
LOC: BIMLAB 15:15
PROVIDERS: PCP Internal Medicine; Visit Provider Internal Medicine
DX: E11.42 Type 2 diabetes mellitus with diabetic polyneuropathy (principal); Z79.4 Long term (current) use of insulin; F32.A Depression, unspecified; F41.9 Anxiety disorder, unspecified
CPT/HCPCS: 36415; 80053; 80061; 82043; 82570; 85025

== ENCOUNTER → 2023-08-23 | Outpatient (CLI) | payer MEDICAID, SELFPAY ==
--- NOTE | 2023-08-23 12:48 | US_ITS ---
STUDY: THYROID ULTRASOUND REASON FOR EXAM: Female, 47 years old. Hyperparathyroidism TECHNIQUE: Ultrasound evaluation of the thyroid was performed with real-time and static marquez-scale imaging. COMPARISON: None. FINDINGS: RIGHT LOBE: The right lobe of the thyroid gland measures 5.1 x 1.4 x 1.4 cm. There is a heterogeneous echotexture. Solid nodule 1 in the posterior upper thyroid lobe is isoechoic with hypoechoic rim measuring 1.05 x 0.98 x 1.02 cm. Smaller solid isoechoic with peripheral calcifications in the posterior medial aspect of the upper thyroid lobe measures 0.43 x 0.35 x 0.43 cm. LEFT LOBE: The left lobe of the thyroid gland measures 4.2 x 1.8 x 1.3 cm. There is a heterogeneous echotexture. Mixed solid and cystic nodule in the medial aspect of the mid thyroid lobe measures 0.63 x 0.34 x 0.63 cm. Solid hypoechoic nodule 2 in the lateral aspect of the lower thyroid lobe measures 0.77 x 0.48 x 0.59 cm. ISTHMUS: The isthmus measures 0.7 cm. . US/Thyroid IMPRESSION: 1. 2 nodules in the right thyroid lobe and 2 nodules in the left thyroid lobe. 2. Solid nodule 1 in the right upper posterior thyroid lobe is isoechoic with hypoechoic rim measuring 1.05 x 0.98 x 1.02 cm. TI-RADS points: 3. TI-RADS category: TR3. This nodule is mildly suspicious but no FNA or follow-up is necessary given the small size of this nodule. 3. Solid nodule 2 in the posterior medial aspect of the right upper thyroid lobe with peripheral calcifications measures 0.43 x 0.55 x 0.43 cm. TI-RADS points: 6. TI-RADS category: TR4. This nodule is moderately suspicious but no FNA or follow-up is necessary given the small size of this nodule. 4. Mixed solid and cystic nodule 1 in the medial aspect of the left mid thyroid lobe measures 0.63 x 0.34 x 0.63 cm. This nodule is mixed cystic and solid, hypoechoic, [id number] and smoothly marginated. TI-RADS points: 3. TI-RADS category: TR3. This nodule is mildly suspicious but no FNA or follow-up is necessary given the small size of this nodule. 5. Solid hypoechoic nodule 2 in the lateral aspect of the left lower thyroid lobe measures 0.77 x 0.48 x 0.59 cm. This nodule is solid or almost completely solid, hypoechoic, [id number], smoothly marginated and contains no echogenic foci. TI-RADS points: 4. TI-RADS category: TR4. This nodule is moderately suspicious but no FNA or follow-up is necessary given the small size of this nodule. Electronically Signed: Edilson Murillo MD at 14:52 EDT ,
== END | disposition home or self-care (01) ==
PROVIDERS: PCP Internal Medicine; Referring Provider Internal Medicine; Visit Provider Internal Medicine
DX: E21.3 Hyperparathyroidism, unspecified (principal)
CPT/HCPCS: 76536

== ENCOUNTER → 2023-08-31 | Outpatient (CLI) | payer MEDICAID, SELFPAY ==
[2023-08-31 10:35] LABS: T4 Free Direct 1.16 ng/dL (0.76-1.46); Thyroid Stim Hormone (TSH) 2.78 uIU/mL (0.358-3.74)
== END | disposition home or self-care (01) ==
LOC: LAB 07:07
PROVIDERS: PCP Internal Medicine; Referring Provider Internal Medicine; Visit Provider Internal Medicine
DX: E04.1 Nontoxic single thyroid nodule (principal)
CPT/HCPCS: 36415; 84439; 84443

== ENCOUNTER → 2023-09-14 | Outpatient (CLI) | payer MEDICAID, SELFPAY ==
[2023-09-14 12:05] LABS: Calcium,Total 12.5 mg/dL (8.5-10.1)
[2023-09-14 12:09] LABS: PTHIN 229.7 pg/mL (18.4-80.1)
[2023-09-16 14:09] LABS: Vitamin D 1,25-Dihydroxy 72.6 pg/mL (24.8-81.5)
== END | disposition home or self-care (01) ==
LOC: LAB 10:45
PROVIDERS: PCP Internal Medicine; Referring Provider Surgery; Visit Provider Surgery
DX: E04.2 Nontoxic multinodular goiter (principal); E21.3 Hyperparathyroidism, unspecified
CPT/HCPCS: 36415; 82310; 82652; 83970

== ENCOUNTER → 2023-10-05 | Outpatient (CLI) | payer MEDICAID, SELFPAY ==
--- NOTE | 2023-10-05 09:00 | BD_ITS ---
STUDY: DUAL ENERGY X-RAY ABSORPTIOMETRY / DXA REASON FOR EXAM: Female, 47 years old. Hyperparathyroidism TECHNIQUE: Bone Mineral Density (BMD) measurements of lumbar spine and bilateral hips were obtained. COMPARISON: None. FINDINGS: Lumbar Spine (L1-L4): g/cm2 (0.860) / T-score (-1.7) / Z-score (-1.2) Findings are suggestive of osteopenia with a moderate fracture risk. Left Femur Total: g/cm2 (0.745) / T-score (-1.6) / Z-score (-1.3) Left Femoral Neck: g/cm2 (0.589) / T-score (-2.3) / Z-score (-1.9) Right Femur Total: g/cm2 (0.816) / T-score (-1.0) / Z-score (-0.7) Right Femoral Neck: g/cm2 (0.581) / T-score (-2.4) / Z-score (-1.9) BD/Dexa Bone Density Study IMPRESSION: The patient is considered osteopenic as outlined below according to World [employer] Organization (WHO) criteria with a high fracture risk. Reference Information: The T-score is the number of standard deviations above or below the standard which is normal for young adults at their peak bone mineral density. The World Health Organization (WHO) interprets the T-scores as follows: Above -1 Normal bone density Between -1 and -2.5 Osteopenia Equal to / or below -2.5 Osteoporosis As a practical clinical guideline, osteopenia may be graded as follows: Mild -1 through -1.5 Moderate -1.6 through -2.0 Severe -2.1 through -2.4 The Z-score is the number of standard deviations above or below age-matched controls. A Z-score of less than -1.5 would be considered abnormal. References: 1. NIH Osteoporosis and Related Bone Diseases www osteo.org 2. International Society for Clinical Densitometry www iscd.org 3. National Osteoporosis Foundation www nof.org Electronically Signed: Kashmir Good MD at 10:49 EDT ,
== END | disposition home or self-care (01) ==
LOC: OPBD 08:58
PROVIDERS: PCP Internal Medicine; Referring Provider Surgery; Visit Provider Surgery
DX: E04.1 Nontoxic single thyroid nodule (principal); E21.3 Hyperparathyroidism, unspecified
CPT/HCPCS: 77080

== ENCOUNTER 2023-10-28 06:18 | Day surgery (SDC) | payer MEDICAID, SELFPAY ==
[2023-10-28] VITALS (8 sets, daily range): BP systolic 123–161; BP diastolic 80–100; PULSE 90–112; RESP 16–18; TEMP 36.1–36.4; O2SAT 97–100; BMI 35.6
[2023-10-28] MEDS: Lactated Ringers 1,000 ML 15 ML IV (06:49)
--- NOTE | 2023-10-28 06:56 | PCM.HP.BLA ---
History and Physical Date of Admission: 10/28/23 Date of Service: 09/09/23 MR#: [id number] Acct: [id number] Name: JAIRO CHAIREZ Rep #: [id number] : 1975 Provider: Dr. Rick Boyle MD Age/Sex: 47/F Location: [facility] Status: Signed Intake Vital Signs 08/09/2413:48 09/08/2412:37 Height 5 ft 1 in 5 ft 1 in Weight: 193 lb 4 oz BMI 36.5 BP 115/78 Blood Pressure Location Lt brachial Position Sitting Respiration 18 Pulse 98 Pulse Source Monitor Temp 97.6 F L Temp Source Temporal Pulse Oximetry (%) 98 Oxygen Delivery Method room air Intake Visit Reasons: HYPERPARATHYROIDISM Chief Complaint: hyperparathyroidism Accompanied by: Is patient in pain?: No Allergies doxycycline Allergy (Verified 09/09/23 13:38) Upset Stomachpregabalin (From Lyrica) Allergy (Verified 09/09/23 13:38) Othersulfamethoxazole (From Bactrim) Allergy (Verified 09/09/23 13:38) Rashtramadol HCl (From Ultram) Allergy (Verified 09/09/23 13:38) Swellingtrimethoprim (From Bactrim) Allergy (Verified 09/09/23 13:38) Rashvancomycin Allergy (Verified 09/09/23 13:38) Swelling Medications ?Medication ?Instructions ?Recorded ?Confirmed ?Type [id number] 8 mg-folic 400 1 tablet PO DAILY supplement 05/30/19 09/09/23 History mcg-K 50 mcg-lutein 300 mcg tablet blood-glucose meter #1 ea 11/19/20 09/09/23 Rx fluticasone propionate 50 1 spray intranasal BID PRN 10/13/21 09/09/23 Rx mcg/actuation nasal allergies, congestion #16 grams spray,suspension aspirin 81 mg tablet,delayed 81 mg PO DAILY@0800 heart health 02/16/22 09/09/23 Rx release #90 tabs Handicap Placard #1 ea 04/22/22 09/09/23 Rx ketoconazole 2 % shampoo 1 applic topical 2XW Dandruf #120 04/22/22 09/09/23 Rx mL mecobalamin (vitamin B12) 1,000 1,000 mcg PO DAILY Supplement #90 04/22/22 09/09/23 Rx mcg chewable tablet tabs melatonin 10 mg tablet 10 mg PO QHS sleep #30 tabs 04/22/22 09/09/23 Rx lancets #100 ea 06/21/22 09/09/23 Rx magnesium oxide 250 mg PO DAILY #90 tabs 07/21/22 09/09/23 Rx blood sugar diagnostic (Blood #100 ea 03/09/23 09/09/23 Rx Glucose Test strips) duloxetine 60 mg capsule,delayed See Rx Instructions .Route 03/09/23 09/09/23 Rx release .COMPLEX #60 caps nystatin 100,000 unit/gram topical See Rx Instructions .Route 05/02/23 09/09/23 Rx powder ([facility]) .COMPLEX #60 grams ivabradine 5 mg tablet (Corlanor) 5 mg PO BIDWMEAL #60 tabs 08/05/23 09/09/23 Rx bupropion HCl 150 mg 24 hr tablet, 150 mg PO QAM #30 tabs 08/10/23 09/09/23 Rx extended release (Wellbutrin XL) carvedilol 25 mg tablet See Rx Instructions .Route 08/10/23 09/09/23 Rx .COMPLEX #120 tabs cholecalciferol (vitamin D3) 50 2,000 unit PO DAILY supplement #90 08/10/23 09/09/23 Rx mcg (2,000 unit) capsule caps diltiazem HCl 120 mg 120 mg PO BID Heart #180 caps 08/10/23 09/09/23 Rx capsule,extended release 24 hr empagliflozin 25 mg tablet 25 mg PO QAM #60 tabs 08/10/23 09/09/23 Rx (Jardiance) furosemide 40 mg tablet 40 mg PO DAILY Diuretic #90 tabs 08/10/23 09/09/23 Rx gabapentin 800 mg tablet 800 mg PO TID NEUROPATHY 1 month 08/10/23 09/09/23 Rx #90 tabs insulin glargine 100 unit/mL (3 25 unit (0.25 mL) subcut BID 2 08/10/23 09/09/23 Rx mL) subcutaneous pen (Lantus months #30 mL Solostar U-100 Insulin) montelukast 10 mg tablet 10 mg PO DAILY #60 TABLETS 08/10/23 09/09/23 Rx omeprazole 40 mg capsule,delayed 40 mg PO DAILY GERD #90 caps 08/10/23 09/09/23 Rx release pen needle, diabetic 31 gauge x #100 ea 08/10/23 09/09/23 Rx 5/16 (Sure-Fine Pen Shidler) potassium chloride 20 mEq 40 meq (2 x 20 mEq) PO BID 3 08/10/23 09/09/23 Rx tablet,extended release months #360 tabs rosuvastatin 10 mg tablet 10 mg PO DAILY #90 tabs 08/10/23 09/09/23 Rx insulin aspart U-100 100 unit/mL 6 unit (0.06 mL) subcut TID #15 mL 08/11/23 09/09/23 Rx (3 mL) subcutaneous pen (Novolog FlexPen U-100 Insulin aspart) dicyclomine 20 mg tablet See Rx Instructions .Route 08/29/23 09/09/23 Rx .COMPLEX #45 TABLETS PFSH Medical History Thyroid nodule Right shoulder pain Right hip pain Falls Hyperparathyroidism Hypercalcemia Abnormal urinalysis Screening for thyroid disorder Malaise and fatigue COVID Intertriginous dermatitis associated with moisture Syncope (08/07/20) Abscess of maxilla Dentalgia Facial cellulitis ICD (implantable cardioverter-defibrillator) discharge (11/24/20) Chronic systolic (congestive) heart failure Cardiomyopathy, dilated, nonischemic Insomnia ANA on CPAP Type 2 diabetes mellitus without complication Diverticulitis Essential hypertension ANA (obstructive sleep apnea) Tachycardia Neuropathy Anxiety and depression Migraines Neuropathy IBS (irritable bowel syndrome) Arthritis Obesity Nonhealing surgical wound Open wound of abdominal wall with complication Open wound of neck with complication Abdominal panniculus, symptomatic History of MRSA infection Morbid obesity due to excess calories Hyperlipidemia Type 2 diabetes mellitus Surgical History History of dental surgery History of implantable cardiac defibrillator (ICD) (11/15/19) History of left heart catheterization (06/01/19) History of neck surgery navel removal History of cholecystectomy History of hysterectomy Family History Other Arthritis Breast cancer CVA (cerebral vascular accident) Depression Diabetes Heart disease Hyperlipemia Hypertension Kidney disease Thyroid disorder Social History (Updated 09/09/23 @ 13:37 by Bruna Plascencia LPN) Smoking Status: Never smoker alcohol intake: never substance use type: marijuana caffeine: No what type of physical activity do you participate in: none HPI HPI HPI: Patient is a 47-year-old female who presents for evaluation of hyperparathyroidism. They are referred from Dr. Oconnor. Patient states that she was quite nervous/apprehensive coming to today's visit as they are not been a lot of communication for why she was referred. She reports that the content of today's visit came about largely because of an incidental finding with routine blood work. She also confesses that she spent some time trying to read about this condition online and has concerns about her risk for cancer at this point. Patient has no history of bone mineral density disease, but has never undergone bone densitometry. Patient has no history of pathologic fractures. Patient has no history of kidney stones. She does share that she occasionally experiences flank pain and recently underwent a hip x-ray to look for a possible fracture. Patient does have a history of frequent dental caries and poor dentition. She details this further stating that 1 morning she woke up with numbness of her cheek and was diagnosed with a flesh eating infection. She shares that this resulted in removal of part of her cheek as well as some of her teeth. She also shares that she has at least 3 additional bad teeth that cause episodic flares requiring antibiotics. She reports that she has been advised to have these teeth removed, however, she was told that it would need to happen by a surgeon given her other comorbidities?most notably her concurrent pacemaker. Patient has no history of brittle fingernails. Patient does have a history of GERD, but states that her symptoms are well-controlled with Nexium. Patient also has a history of hypertension, but relates that her problems are primarily to do with her higher heart rates than her higher blood pressure. Additional symptoms include: Numbness and tingling (patient acknowledges this is likely neuropathy is related to her diagnosis of diabetes), depression (which patient states is improved since using Wellbutrin and Cymbalta per her PCP), and back pain (patient denies arthritis but relates her back pain to diagnoses of double scoliosis and bulging disks). Patient has no history of prior radiation exposure apart from medical image. Patient has a family history of other endocrinopathies including need for total thyroidectomy and her grandmother. She relates that her grandmothers thyroid was enlarged and is unaware of any diagnosis of cancer. She denies any awareness of any hyperparathyroidism or adrenal problems. Patient [does/does not] have a diet high in dairy. Patient's current labs are calcium: 12.4 mg/dL 08/10/2023 (range of 11-12.4 since June 2022), Vitamin D: 27 ng/mL 01/14/2023, PTH: 110.9 pg/mL 01/04/2023 [(Range of: over time period)] Current medications include: Cholecalciferol 2000 international units daily. Imaging has been done thyroid ultrasound 08/19/2023 and showed a right thyroid lobe measuring 5.1 x 1.4 x 1.4 cm. Within the upper pole of this nodule radiology identified a solid, isoechoic nodule with peripheral calcifications measuring 1.05 x 0.98 x 1.02 cm. They identified also a smaller isoechoic nodule with peripheral calcifications in the posterior medial aspect of the upper thyroid lobe measuring 0.43 x 0.35 x 0.43 cm. The left thyroid lobe measured 4.2 x 1.8 x 1.3 cm. Within this lobe of the identified 2 nodules measuring 0.63 cm and 0.77 cm in greatest dimensions, respectively. Significantly, no mention was made for possible parathyroid candidates Patient has not had DEXA imaging Patient has not had dedicated renal imaging, however, patient had CT abdomen pelvis x 2 in 2021 and both studies mention normal kidneys. ROS General General: Yes fatigue; No weight change, appetite, colon cancer, breast cancer or weakness HEENT HEENT: Yes difficulty swallowing; No eye injury, eye surgery, swollen glands or hoarseness Endo Endocrine: Yes diabetes mellitus; No thyroid disease, thyroid cancer, Hair loss, heat intolerance or cold intolerance Skin Skin: No rash or changing moles Musc Musculoskeletal: Yes back problems; No arthritis, rheumatoid arthritis, gout or joint pain Cardio Cardiovascular: Yes pacemaker and high blood pressure; No murmur, heart disease, atrial fibrillation, heart attack, heart stent, palpitations, shortness of breat with exertion or chest pain Psych Psychiatric: Yes depression and anxiety; No hearing voices Resp Respiratory: No shortness of breath, Yes sleep apnea, No cough, No COPD, No asthma, No emphysema and No wheezing Gastro Gastrointestinal: Yes abdominal pain, No nausea or vomiting, No diarrhea, No constipation, No blood in stool, Yes acid reflux, No hemorrhoids, No ulcers, No gallbladder problem and No black,tarry stools Akash Hematologic: No blood thinners, No blood disorders, No bleeding, No anemia and No blood clots Neuro Neurologic: Yes numbness (legs/hands), Yes tingling (legs/ hands) and No weakness Exam Const General: cooperative and anxious Nutritional Appearance: obese Orientation: alert, awake and oriented x3 Other: Appears older than stated age Neck Other: Thick neck with mild thyromegaly. Mild tenderness with palpation of the left neck. On ultrasound exam identify a left mid polar lesion (posterior to the thyroid) that is hypoechoic, smoothly marginated, and measures 0.8 x 0.8 x 1.8 cm suspicious for parathyroid adenoma Assessment and Plan Assessment and Plan (1) Hyperparathyroidism: Status: Acute Comment: Patient is a 47-year-old female with apparent incidentally?diagnosed hyperparathyroidism. Patient denies any awareness of hypercalcemia but this finding is apparent through her labs dating back to 2022. As far as I can see she has just 1 elevated PTH. I would like to repeat this study to confirm if no other values are available, but I do not find evidence of a probable secondary source for her hyperparathyroidism?specifically no evidence of renal dysfunction, intestinal malabsorption, etc.? Thus, I do suspect patient has primary hyperparathyroidism but when I review her history there does not appear to be a surgical indication with the patient's case as she denies any history of bony fractures, bone mineral density disease, or kidney stones. Yet, I would like to investigate these possibilities further with additional dedicated studies?and have recommended 24-hour urine calcium as well as a DEXA scan. Interestingly patient was ordered a thyroid ultrasound for localization purposes and radiology described a number of?primarily subcentimeter?thyroid nodules but no mention was made of parathyroid candidates. 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 However, given patient's medical history her surgical risk is significant?despite her younger age-and thus I find it prudent to only proceed with an operation if a surgical indication is evident. This stance was shared with patient and her and they seem to express agreement. I did spend a large portion of today's visit simply describing this diagnosis and how it is made on a biochemical basis. I also suggested that although the many secondary symptoms can be common they have alternative primary causes as well which makes it occasionally difficult to prognosticate patient's response to surgery. Hand drawings were made to illustrate relevant points were possible. Plan: ? Repeat vitamin D, calcium, and PTH ? 24-hour urine calcium ? DEXA imaging (2) Multiple thyroid nodules: Status: Acute Comment: Patient with largely multiple subcentimeter thyroid nodules on thyroid ultrasound performed for localization of hyperparathyroidism. Overall her gland is minimally enlarged and I do not believe it is the cause of some complaints of compressive symptomology. Further, I reviewed patient's ultrasound with her and her and mapped out the location of her nodules as well as described the TI-RADS rating system for triaging thyroid nodularity (after first describing the prevalence of nodules). I do take exception with patient's right superior thyroid nodule and believe that it is misdiagnosed by radiology as a TI-RADS 3 nodule. Instead I believe this meets criteria for a TI-RADS 4 lesion given 2 points for solid composition, 1.4 isoechoic echogenicity, and 2 points for peripheral calcification. Yet even if this is scored higher it still fails to meet size criteria for biopsy. Again, as well as the hyperparathyroidism discussion, and drawings were made of the relevant anatomy to try to facilitate understanding. Patient and her expressed an appreciation for this conversation. Plan: ? Consider repeat thyroid ultrasound to assess for any growth in patient's right superior pole thyroid nodule versus biopsy (if we ultimately plan for operative intervention against hyperparathyroidism) I have examined the patient the following changes are noted: Patient last seen in consultation on 09/09/2023 primarily regarding a new diagnosis of hyperparathyroidism. Today she is on the schedule for EGD and colonoscopy. This is primarily occasioned by increased frequency of reflux symptoms?although today she shares that these remain relatively well-controlled with use of Nexium. We are also proceeding with a colonoscopy which she states has been done previously but not for over 10 years. She recalls that that previous scope demonstrated signs of diverticulosis but was other benign and its findings. She shares that she carries a diagnosis of IBS and tends towards looser bowels, however, she reports that lately she has been fairly regular. She denies any bright red blood per rectum. She has no family history of significant GI diagnoses?specifically denying any history of colorectal cancer, inflammatory bowel disease, or diverticulitis. Lastly Mrs. Chairez confirms that she completed a prep for today's procedure and her output is now clear. Brief overview of today's proceedings were given as well as the post procedure results reporting showed biopsies to be taken. Both patient and her confirm understanding. Will proceed to the endoscopy suite for colonoscopy and EGD as discussed.
[2023-10-28 07:11] LABS: Bedside Glucose 182 mg/dL (74-106)
--- NOTE | 2023-10-28 07:12 | PCM.PRE.AN2 ---
ASA Classification* ASA Classification ASA Classification: 3 Assessment & Plan Anesthesia* Anesthesia Assessment Anesthesia Assessment: Discussed sedation and/or anesthesia options, risks, benefits, and alternatives with patient/parents/legal guardian/POA. Questions invited. The patient/parents/legal guardian/POA seems to understand and agrees to proceed with anesthesia plan. Reviewed the physical assessment, medical history, allergy history and patient home medications list prior to surgery/procedure/anesthetic and documented any changes. Performed airway and anesthesia risk assessments. Anesthesia Type Anesthesia Type: MAC Anesthesia Focused Assessment* Temperature: 97.4 F Pulse Rate: 112 Blood Pressure: 161/100 Respiratory Rate: 16 Pulse Ox: 97 Airway Assessment Mouth opens: >3 cm Mallampati Score: II Focused Labs Anesthesia Preop lab: CBC WBC 11.1 K/mm3 (4.4-11.0) H 08/10/23 15:16 RBC 5.63 M/mm3 (4.2-5.4) H 08/10/23 15:16 Hgb 15.6 g/dL (12.0-15.0) H 08/10/23 15:16 Hct 48.9 % (37-47) H 08/10/23 15:16 Plt Count 280 K/mm3 (150-450) 08/10/23 15:16 CHEMISTRY Potassium 4.2 mmol/L (3.5-5.1) 08/10/23 15:16 Sodium 136 mmol/L (136-145) 08/10/23 15:16 Magnesium 1.6 mg/dL (1.6-2.6) 08/11/21 13:36 BUN 15 mg/dL (7-18) 08/10/23 15:16 Creatinine 0.64 mg/dL (0.55-1.02) 08/10/23 15:16 Glucose 275 mg/dL (74-106) H 08/10/23 15:16 POC Glucose 182 mg/dL (74-106) H 10/28/23 06:34 TSH 2.78 uIU/mL (0.358-3.74) 08/31/23 07:10 COAG PT 12.7 SECONDS (11.7-14.9) 10/05/21 16:05 Urine Test Negative Negative 07/30/17 11:45 Pre-Assessment Diagnosis/Proposed Procedure Planned Operative Procedure(s): COLON AND EGD Anesthesia History 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 When Was Last Pacemaker Check QUESTION #4 FULL TEXT: You/Your Family Experience fever (hyperthermia) with Anesthesia Last Oral Intake Last Oral intake: Last Oral Intake NPO since 23:00 10/28/23 06:41 Meds taken in AM with sips of No 10/28/23 06:41 water? Meds patient instructed to take am of surgery PONV PONV - senior core java developer: PONV - senior core java developer Female Yes 10/24/23 16:07 HX of Motion Sickness No 10/24/23 16:07 HX of N/V After Surgery No 10/24/23 16:07 Non-Smoker Yes 10/24/23 16:07 Duration of Surgery greater No 10/24/23 16:07 than 60 minutes Number of Risk Factors 2 10/24/23 16:07 PONV Score Moderate Risk 10/24/23 16:07 Height & Weight Height & Weight: Anesthesia: Height & Weight Height 5 ft 1 in 10/28/23 06:41 Weight: 85.5 kg 10/28/23 06:41 Body Mass Index (BMI) 35.6 10/28/23 06:41 Respiratory Assessment Respiratory Assessment - senior core java developer: Respiratory Tract Infection Hx - senior core java developer Hx Respiratory Tract Infection No 10/24/23 16:07 STOP Sleep Apnea STOP Sleep Apnea - senior core java developer: STOP Sleep Apnea - senior core java developer Hx Hypertension Yes 10/24/23 16:07 Hx Sleep Apnea Yes 10/24/23 16:07 CPAP No 10/24/23 16:07 BIPAP Yes 10/24/23 16:07 Do you snore loudly (louder than talking or can be heard Do you often feel tired/ fatigued/ sleepy during daytime? Has anyone observed you stop breathing during sleep? STOP Results Positive 10/24/23 16:07 QUESTION #5 FULL TEXT : Do you snore loudly (louder than talking or can be heard through closed doors)? 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 Specify any problems Hx of Preganancy in last 3 No 10/24/23 16:07 Months Nurse Filling Out [facility] 10/24/23 16:07 & Questions: Date: 10/24/23 10/24/23 16:07 Time: 16:08 10/24/23 16:07 Patient unable to answer at this time (ie. confused, unrespo /Reproduction History /Reproductive History - senior core java developer: /Reproductive Hx- senior core java developer Hx Now No 10/24/23 16:07 Gestational Age (in weeks): EDC: Hx Hx Para Hx Section SAB No 10/24/23 16:07 Active Medications Active Medications: Current Medications Generic Name Dose Route Start Last Admin Trade Name Freq PRN Reason Stop Dose Admin Lactated Ringer's 1,000 mls @ 15 mls/hr 10/28/23 06:30 10/28/23 06:49 IV 15 mls/hr .Q48H MARIA ISABEL Administration PFSH Medical History Wears glasses Hydradenitis MRSA infection Walker as ambulation aid Ambulates with cane Fatty liver Restless legs Back pain Heartburn Non-smoker On home oxygen therapy CPAP (continuous positive airway pressure) dependence Shortness of breath on exertion Leg cramps History of pain when walking History of edema History of echocardiogram Thyroid nodule Right shoulder pain Right hip pain Falls Hyperparathyroidism Hypercalcemia Abnormal urinalysis Screening for thyroid disorder Malaise and fatigue COVID Intertriginous dermatitis associated with moisture Syncope (08/07/20) Abscess of maxilla Dentalgia Facial cellulitis ICD (implantable cardioverter-defibrillator) discharge (11/24/20) Chronic systolic (congestive) heart failure Cardiomyopathy, dilated, nonischemic Insomnia ANA on CPAP Type 2 diabetes mellitus without complication Diverticulitis Essential hypertension ANA (obstructive sleep apnea) Tachycardia Neuropathy Anxiety and depression Migraines Neuropathy IBS (irritable bowel syndrome) Arthritis Obesity Nonhealing surgical wound Open wound of abdominal wall with complication Open wound of neck with complication Abdominal panniculus, symptomatic History of MRSA infection Morbid obesity due to excess calories Hyperlipidemia Type 2 diabetes mellitus Home Medications ?Medication ?Instructions ?Recorded ?Last Taken ?Type blood-glucose meter #1 ea 11/19/20 Unknown Rx aspirin 81 mg tablet,delayed 81 mg PO DAILY@0800 heart [facility] 02/16/22 Unknown Rx release #90 tabs Handicap Placard #1 ea 04/22/22 Unknown Rx melatonin 10 mg tablet 10 mg PO QHS sleep #30 tabs 04/22/22 Unknown Rx lancets #100 ea 06/21/22 Unknown Rx magnesium oxide 250 mg PO DAILY #90 tabs 07/21/22 Unknown Rx blood sugar diagnostic (Blood #100 ea 03/09/23 Unknown Rx Glucose Test strips) cholecalciferol (vitamin D3) 50 2,000 unit PO DAILY supplement #90 08/10/23 Unknown Rx mcg (2,000 unit) capsule caps diltiazem HCl 120 mg 120 mg PO BID Heart #180 caps 08/10/23 Unknown Rx capsule,extended release 24 hr furosemide 40 mg tablet 40 mg PO DAILY Diuretic #90 tabs 08/10/23 Unknown Rx gabapentin 800 mg tablet 800 mg PO TID NEUROPATHY 1 month 08/10/23 Unknown Rx #90 tabs insulin glargine 100 unit/mL (3 25 unit (0.25 mL) subcut BID 2 08/10/23 Unknown Rx mL) subcutaneous pen (Lantus months #30 mL Solostar U-100 Insulin) montelukast 10 mg tablet 10 mg PO DAILY #60 TABLETS 08/10/23 Unknown Rx omeprazole 40 mg capsule,delayed 40 mg PO DAILY GERD #90 caps 08/10/23 Unknown Rx release pen needle, diabetic 31 gauge x #100 ea 08/10/23 Unknown Rx /16 (Sure-Fine Pen [place]) potassium chloride 20 mEq 40 meq (2 x 20 mEq) PO BID 3 08/10/23 Unknown Rx tablet,extended release months #360 tabs insulin aspart U-100 100 unit/mL 6 unit (0.06 mL) subcut TID #15 mL 08/11/23 Unknown Rx (3 mL) subcutaneous pen (Novolog FlexPen U-100 Insulin aspart) dicyclomine 20 mg tablet See Rx Instructions .Route 08/29/23 Unknown Rx .COMPLEX #45 TABLETS metformin 1,000 mg tablet 1,000 mg PO BID Diabetes 3 months 09/16/23 Unknown Rx #180 tabs duloxetine 60 mg capsule,delayed See Rx Instructions .Route 10/05/23 Unknown Rx release .COMPLEX #180 caps carvedilol 25 mg tablet See Rx Instructions .Route 10/07/23 Unknown Rx .COMPLEX #120 tabs ivabradine 5 mg tablet (Corlanor) 5 mg PO BIDWMEAL #60 tabs 10/11/23 Unknown Rx bupropion HCl 150 mg 24 hr tablet, 150 mg PO 10/24/23 Unknown History extended release rosuvastatin 10 mg tablet 10 mg PO DAILY 10/24/23 Unknown History Allergy/AdvReac Type Severity Reaction Status Date / Time doxycycline Allergy Upset Verified 10/28/23 06:39 Stomach pregabalin (From Lyrica) Allergy Other Verified 10/28/23 06:39 sulfamethoxazole (From Allergy Rash Verified 10/28/23 06:39 Bactrim) tramadol HCl (From Ultram) Allergy Swelling Verified 10/28/23 06:39 trimethoprim (From Bactrim) Allergy Rash Verified 10/28/23 06:39 vancomycin Allergy Swelling Verified 10/28/23 06:39 Family History Other Arthritis Breast cancer CVA (cerebral vascular accident) Depression Diabetes Heart disease Hyperlipemia Hypertension Kidney disease Thyroid disorder Surgical History History of dental surgery History of implantable cardiac defibrillator (ICD) (11/15/19) History of left heart catheterization (06/01/19) History of neck surgery navel removal History of cholecystectomy History of hysterectomy Social History Smoking Status: Never smoker alcohol intake: never substance use type: marijuana caffeine: No what type of physical activity do you participate in: none Review of Systems (Anesthesia) ROS Narrative System reviewed and no additional complaints, except as documented.
--- NOTE | 2023-10-28 07:30 | EGD_PTH ---
PATIENT: JAIRO CHAIREZ LOC: EN U#:[id number] AGE/SX: 47/F ROOM: RE10/28/[address]: Dr. Rick Boyle MD : 1975 BED: DIS: 10/28/2023 SPEC #: [id number] RECD: 10/28/23 13:42 STATUS: NORRIS BECCA #: [id number] ZAMZAM: 10/28/23 07:[address]: Rick Boyle DEPT: SURGICAL PATHOLOGY RECD BY: Ani Flores ENTERED: 10/31/23 07:49 SP TYPE: EGD BIOPSY OT DR: Dr. Nevaeh Oconnor MD Tissues: A - Pylorus B - Gastric mucous membrane C - Gastric mucous membrane D - COLON BIOPSY Procedures: Special Stain Group I Surgery Specimen Level IV Alcian Blue/PAS (control) HEADER OPERATION: Colonoscopy, EGD with biopsies PRE-OP DIAGNOSIS: GERD, screening colonoscopy TISSUE SUBMITTED: A- Pre-pyloric nodule biopsy, B- Antrum biopsy, C- Gastroesophageal junction biopsy, D- Abnormal mucosa biopsy MICROSCOPIC DIAGNOSIS A. Pre-pyloric nodule, biopsy: Mild gastritis. See microscopic description and comment. B. Antrum, biopsy: Mild gastritis. See microscopic description and comment. C. Gastroesophageal junction, biopsy: A fragment of gastroesophageal mucosa with chronic inflammation, mild congestion and hemorrhage. Intestinal metaplasia (goblet cell metaplasia) not identified. See comment. D. Abnormal mucosa, biopsy: A fragment of gastroesophageal mucosa with chronic inflammation, mild congestion and hemorrhage. Intestinal metaplasia (goblet cell metaplasia) not identified. See comment. / 11/01/2023 COMMENT B. The results of immunohistochemistry for Helicobacter pylori will be reported separately ([id number]). C, D. Alcian blue/PAS stain with matched control is used in the evaluation of the specimen. MICROSCOPIC DESCRIPTION Slides are reviewed. A,B. The specimen shows fragments of gastric mucosa with chronic inflammatory cell infiltrates in the lamina propria consisting of lymphocytes and plasma cells, consistent with mild chronic gastritis. Focal mucosal congestion and hemorrhage are also noted. GROSS DESCRIPTION A. Received in fixative is one container labeled with the patient's name and designated Pre-pyloric nodule. The specimen consists of two irregular fragments of light mak soft tissue that in aggregate measure 0.5 x 0.2 x 0.1 cm. The specimen is totally submitted in one cassette. B. Received in fixative is one container labeled with the patient's name and designated Antrum biopsy. The specimen consists of one irregular fragment of light mak soft tissue that measures 0.4 x 0.3 x 0.1 cm. The specimen is totally submitted in one cassette. C. Received in fixative is one container labeled with the patient's name and designated GE junction biopsy. The specimen consists of one irregular fragment of light mak soft tissue that measures 0.3 x 0.3 x 0.1 cm. The specimen is totally submitted in one cassette. D. Received in fixative is one container labeled with the patient's name and designated Abnormal mucosa biopsy. The specimen consists of one irregular fragment of light mak soft tissue that measures 0.3 x 0.2 x 0.1 cm. The specimen is totally submitted in one cassette. CRISTOFER/ 10/31/2023 TC:3 CPT:21110f0,98191p3
--- NOTE | 2023-10-28 07:30 | IMM_PTH ---
PATIENT: JAIRO CHAIREZ LOC: EN U#:[id number] AGE/SX: 47/F ROOM: RE10/28/[address]: Dr. Rick Boyle MD : 1975 BED: DIS: 10/28/2023 SPEC #: [id number] RECD: 10/31/23 11:51 STATUS: NORRIS REKavin #: [id number] ZAMZAM: 10/28/23 07:[address]: Rick Boyle DEPT: IMMUNOHISTOCHEMISTRY RECD BY: Connor Matias ENTERED: 10/31/23 11:51 SP TYPE: IMMUNO OTHR DR: Dr. Nevaeh Oconnor MD Tissues: B - Gastric mucous membrane Procedures: H Pylori (initial) PHYSICIAN & INSTITUTION [place] [address] SPECIMEN INFORMATION: Tissue Source: B. Antrum biopsy Clinical Info: GERD, screening colonoscopy Specimen Number: [id number] CPT code: 87424 METHODOLOGY: Deparaffinized sections of prefer/formalin-fixed tissue or PAP/DQ stained slides are incubated with monoclonal/polyclonal antibodies/oligonucleotide probes. Localization is made via biotin free immunoperoxidase method. Appropriate controls are performed and reacted as expected. Results on target cell population are indicated in the following table: RESULTS: ANTIBODY / CLONE RESULT Block B H Pylori (polyclonal) negative These tests were developed and their performance characteristics determined by [facility]. They may not have been cleared or approved by the U.S. Food and Drug Administration. The FDA has determined that such clearance or approval is not necessary. The above immunohistochemical/dualISH markers are ordered and reviewed by the Pathologist. INTERPRETATION: B. Antrum, biopsy: Negative for Helicobacter pylori organisms. CRISTOFER/ 11/01/2023
--- NOTE | 2023-10-28 08:58 | OP.EGD_ITS ---
Patient Name: Suzy Degroot Procedure Date: 10/28/2023 7:14 AM Date of : 1975 Age: 47 Procedure: Upper GI endoscopy Indications: Suspected gastro-esophageal reflux disease Providers: Rick Boyle MD Referring MD: Rick Boyle MD Medicines: See the Anesthesia note for documentation of the administered medications Patient Profile: Refer to note in patient chart for documentation of history and physical. Patient has symptoms of acute heartburn. Complications: No immediate complications. Estimated blood loss: Minimal. Procedure: Pre-Anesthesia Assessment: - The heart rate, respiratory rate, oxygen saturations, blood pressure, adequacy of pulmonary ventilation, and response to care were monitored throughout the procedure. After obtaining informed consent, the endoscope was passed under direct vision. Throughout the procedure, the patient's blood pressure, pulse, and oxygen saturations were monitored continuously. The Endoscope was introduced through the mouth, and advanced to the second part of duodenum. The upper GI endoscopy was somewhat difficult due to a J-shaped stomach which made pyloric intubation difficult. The patient tolerated the procedure fairly well. Scope In: 7:43:00 AM Scope Out: 7:57:56 AM Total Procedure Duration Time 0 hours 14 minutes 56 seconds Findings: No gross lesions were noted in the duodenal bulb, in the first portion of the duodenum and in the second portion of the duodenum. No biopsies or other specimens were collected for this exam. Bilious fluid was found in the stomach. No biopsies or other specimens were collected for this exam. A single 5 mm mucosal papule (nodule) with no bleeding and no stigmata of recent bleeding was found in the prepyloric region of the stomach. Biopsies were taken with a cold forceps for histology. Estimated blood loss was minimal. Diffuse moderately erythematous mucosa without bleeding was found in the gastric body and in the gastric antrum. Biopsies were taken with a cold forceps for histology. Estimated blood loss was minimal. The Z-line was irregular and was found 35 cm from the incisors. Biopsies were taken with a cold forceps for histology. Estimated blood loss was minimal. [place] of salmon-colored mucosa were present from 15 to 17 cm. No other visible abnormalities were present. Biopsies were taken with a cold forceps for histology. Estimated blood loss was minimal. The exam was otherwise without abnormality. Impression: - No gross lesions in the duodenal bulb, in the first portion of the duodenum and in the second portion of the duodenum. No specimens collected. - Bilious gastric fluid. No specimens collected. - A single mucosal papule (nodule) found in the stomach. Biopsied. - Erythematous mucosa in the gastric body and antrum. Biopsied. - Z-line irregular, 35 cm from the incisors. Biopsied. - [place]-colored mucosa suspicious for Moran's esophagus. Biopsied. - The examination was otherwise normal. Recommendation: - Discharge patient to home (via wheelchair). - Resume previous diet today. - No aspirin, ibuprofen, naproxen, or other non-steroidal anti-inflammatory drugs for 2 days after biopsy. - Telephone my office for pathology results in 1 week. Procedure Code(s): --- Professional --- 62283, Esophagogastroduodenoscopy, flexible, transoral; with biopsy, single or multiple Diagnosis Code(s): --- Professional --- K22.89, Other specified disease of esophagus K31.89, Other diseases of stomach and duodenum CPT copyright 2021 [employer]. All rights reserved. The codes documented in this report are preliminary and upon automotive painter review may be revised to meet current compliance requirements. Rick Boyle MD 10/28/2023 8:58:37 AM This report has been signed electronically. Number of Addenda: 0 Note Initiated On: 10/28/2023 7:14 AM
--- NOTE | 2023-10-28 08:58 | PCM.POST.ANE ---
Anesthesia: Postop Eval I Current Vital Signs Temperature: 97.6 F Pulse Rate: 99 Blood Pressure: 131/96 Respiratory Rate: 18 Pulse Ox: 100 Oxygen Delivery Method: Room Air Assessment Airway patent: Yes Spontaneous unlabored respirations: Yes Mental status: Awake and Calm nausea: No Vomiting: No Anesthesia Complication: No Fluid Hydration Crystalloid volume administer (ml): 1,700 Total IV fluid infused: 1,700 Progress Note Anesthesia document: Postop Eval 1 completed: Yes
--- NOTE | 2023-10-28 08:59 | OP.CCLET_ITS ---
10/28/2023 Nevaeh Oconnor MD [address] [place] [address] [place] [address] Re : Upper GI endoscopy procedure for Suzy Ortizl Dear Dr. Oconnor This procedure was performed on Saturday, October 28, 2023. My impressions and recommendations are as follows: Impressions : - No gross lesions in the duodenal bulb, in the first portion of the duodenum and in the second portion of the duodenum. No specimens collected. - Bilious gastric fluid. No specimens collected. - A single mucosal papule (nodule) found in the stomach. Biopsied. - Erythematous mucosa in the gastric body and antrum. Biopsied. - Z-line irregular, 35 cm from the incisors. Biopsied. - [place]-colored mucosa suspicious for Moran's esophagus. Biopsied. - The examination was otherwise normal. Recommendations : - Discharge patient to home (via wheelchair). - Resume previous diet today. - No aspirin, ibuprofen, naproxen, or other non-steroidal anti-inflammatory drugs for 2 days after biopsy. - Telephone my office for pathology results in 1 week. My findings are described in the full procedure note, which is enclosed. If I can be of further assistance, please feel free to contact me at Doctor phone number(s): , Work: . Sincerely, Rick Boyle MD 10/28/2023 8:58:37 AM This report has been signed electronically.
--- NOTE | 2023-10-28 09:06 | OP.CCLET_ITS ---
10/28/2023 Nevaeh Oconnor MD [address] [place] [address] [place] [address] Re : Colonoscopy procedure for Suzy Degroot Dear Dr. Oconnor This procedure was performed on Saturday, October 28, 2023. My impressions and recommendations are as follows: Impressions : - Preparation of the colon was fair. - Tortuous colon. - Foreign body in the ascending colon and in the cecum. - The examination was otherwise normal on direct and retroflexion views. Recommendations : - Discharge patient to home (via wheelchair). - Resume previous diet today. - Continue present medications. - Repeat colonoscopy in 3 - 5 years for screening purposes. - Telephone my office for study results in 1 week. My findings are described in the full procedure note, which is enclosed. If I can be of further assistance, please feel free to contact me at Doctor phone number(s): , Work: . Sincerely, Rick Boyle MD 10/28/2023 9:05:28 AM This report has been signed electronically.
--- NOTE | 2023-10-28 09:06 | OP.COLON_ITS ---
Patient Name: Suzy Degroot Procedure Date: 10/28/2023 8:00 AM Date of : 1975 Age: 47 Procedure: Colonoscopy Indications: Screening for colorectal malignant neoplasm Providers: Rick Boyle MD Referring MD: Rick Boyle MD Medicines: See the Anesthesia note for documentation of the administered medications Patient Profile: Refer to note in patient chart for documentation of history and physical. Patient has symptoms of acute heartburn. Last Colonoscopy: more than 10 years ago. Complications: No immediate complications. Estimated blood loss: None. Procedure: Pre-Anesthesia Assessment: - The heart rate, respiratory rate, oxygen saturations, blood pressure, adequacy of pulmonary ventilation, and response to care were monitored throughout the procedure. After I obtained informed consent, the scope was passed under direct vision. Throughout the procedure, the patient's blood pressure, pulse, and oxygen saturations were monitored continuously. The Colonoscope was introduced through the anus and advanced to the cecum, identified by the appendiceal orifice, ileocecal valve and palpation. The colonoscopy was technically difficult and complex due to significant looping. Successful completion of the procedure was aided by changing the patient to a supine position and using manual pressure. The quality of the bowel preparation was fair. Scope In: 8:01:28 AM Scope Out: 8:45:06 AM Total Procedure Duration Time 0 hours 43 minutes 38 seconds Findings: The perianal and digital rectal examinations were normal. The right colon was moderately tortuous. Advancing the scope required changing the patient to a supine position and applying abdominal pressure. A foreign body was found in the ascending colon and in the cecum. No biopsies or other specimens were collected for this exam. The exam was otherwise without abnormality on direct and retroflexion views. Impression: - Preparation of the colon was fair. - Tortuous colon. - Foreign body in the ascending colon and in the cecum. - The examination was otherwise normal on direct and retroflexion views. Recommendation: - Discharge patient to home (via wheelchair). - Resume previous diet today. - Continue present medications. - Repeat colonoscopy in 3 - 5 years for screening purposes. - Telephone my office for study results in 1 week. Procedure Code(s): --- Professional --- G0121, Colorectal cancer screening; colonoscopy on individual not meeting criteria for high risk Diagnosis Code(s): --- Professional --- Z12.11, Encounter for screening for malignant neoplasm of colon T18.4XXA, Foreign body in colon, initial encounter Q43.8, Other specified congenital malformations of intestine CPT copyright 2021 [employer] [place] [employer]. All rights reserved. The codes documented in this report are preliminary and upon realty loan specialist review may be revised to meet current compliance requirements. Rick Boyle MD 10/28/2023 9:05:28 AM This report has been signed electronically. Number of Addenda: 0 Note Initiated On: 10/28/2023 8:00 AM
--- NOTE | 2023-10-28 09:48 | PCM.POSTANE2 ---
Anesthesia Postop Eval I Sum Postop Eval Completion status Anesthesia document: Postop Eval 1 completed: Yes Anesthesia Postop Eval I Summary Anesthesia Postop Eval I Summary: Anesthesia Postop Eval I: Assessment Summary Airway patent Yes 10/28/23 08:58 [email or web address] Spontaneous unlabored Yes 10/28/23 08:58 [email or web address] respirations Mental status Awake,Calm 10/28/23 08:58 [email or web address] nausea No 10/28/23 08:58 [email or web address] Vomiting No 10/28/23 08:58 [email or web address] Anesthesia Postop Eval I: Fluid Summary Crystalloid volume administer 1,700 10/28/23 08:58 [email or web address] (ml) Colloids volume administered ( ml) Blood Product volume administered (ml) Total IV fluid infused 1,700 10/28/23 08:58 [email or web address] Anesthesia Postop Eval I: Summary Notes Anesthesia Complication No 10/28/23 08:58 [email or web address] Anesthesia Complication Comment: Post-operative progress note Anesthesia: Postop Eval II Evaluation Mental status: Awake Pain Level: 0 nausea: No Vomiting: No Complications Anesthesia Complication: No
== END 2023-10-28 09:35 | disposition home or self-care (01) ==
LOC: EN 06:19 → AC 06:19
PROVIDERS: PCP Internal Medicine; Referring Provider Surgery; Visit Provider Surgery
PROC: 0DJD8ZZ Inspection of Lower Intestinal Tract, Via Natural or Artificial Opening Endoscopic (ICD-10-PCS; CPT 45378; principal; 2023-10-28 07:25)
DX: Z12.11 Encounter for screening for malignant neoplasm of colon (principal); I50.22 Chronic systolic (congestive) heart failure; I11.0 Hypertensive heart disease with heart failure; I42.0 Dilated cardiomyopathy; E11.40 Type 2 diabetes mellitus with diabetic neuropathy, unspecified; K31.89 Other diseases of stomach and duodenum; E66.9 Obesity, unspecified; F12.90 Cannabis use, unspecified, uncomplicated; E21.3 Hyperparathyroidism, unspecified; Q43.8 Other specified congenital malformations of intestine; G47.33 Obstructive sleep apnea (adult) (pediatric); K29.70 Gastritis, unspecified, without bleeding; T18.4XXA Foreign body in colon, initial encounter; Z79.82 Long term (current) use of aspirin; Z79.899 Other long term (current) drug therapy; Z79.84 Long term (current) use of oral hypoglycemic drugs; Z68.36 Body mass index [BMI] 36.0-36.9, adult; Z86.16 Personal history of COVID-19; Z95.810 Presence of automatic (implantable) cardiac defibrillator; X58.XXXA Exposure to other specified factors, initial encounter
CPT/HCPCS: 45378; 43239; 82962; 88305; 88312; 88342; J7120; J2405

== ENCOUNTER → 2023-11-01 | Outpatient (CLI) | payer MEDICAID, SELFPAY ==
--- NOTE | 2023-11-01 07:55 | ECHOCS_ITS ---
Version 2 Reason For Study: Dilated CMP Procedure This was a 2D Doppler, Color Flow transthoracic echocardiogram. The study was technically difficult. Contrast injection was performed. Exam performed in department. Left Ventricle Normal LV size. Left ventricular systolic function is lower limits of normal. The left ventricular ejection fraction is 45 %. Stage 1 diastolic dysfunction. There is mild global hypokinesis of the left ventricle. Right Ventricle Normal RV size. ICD or pacer leads identified within the right ventricle. Normal systolic function. Atria Normal left atrium. Normal right atrium. Mitral Valve Normal mitral valve. Tricuspid Valve Normal tricuspid valve. Mild tricuspid valve insufficiency. Pulmonary artery systolic pressure is 22 mmHg. Aortic Valve Trisinus/trileaflet aortic valve. Pulmonic Valve Normal pulmonic valve. Great Vessels Normal aortic root. The pulmonary artery is normal size. Normal inferior vena cava. Pericardium/Pleural No pericardial effusion. Medication 22 gauge I.V. with prn adaptor inserted into right arm. Diluted definity 2ml given slow IV push to enhance endocardial definition. MMode/2D Measurements & Calculations LVIDd: 4.7 cm IVSd: 1.3 cm Ao root diam: 3.2 cm LVIDs: 3.4 cm LVPWd: 1.1 cm LA dimension: 3.6 cm RVDd: 3.0 cm FS: 27.6 % LAV(MOD-bp): 35.3 ml LVAd ap4: 26.8 cm2 SV(MOD-sp4): 32.3 ml LAV(MOD-bp) Indexed: 19.0 ml/m2 LVLd ap4: 7.7 cm LAV(MOD-sp2): 31.8 ml EDV(MOD-sp4): 78.1 ml LAV(MOD-sp4): 34.8 ml EDV(sp4-el): 79.1 ml LVAs ap4: 18.9 cm2 LVLs ap4: 6.7 cm ESV(MOD-sp4): 45.8 ml ESV(sp4-el): 45.3 ml EF(MOD-sp4): 41.3 % EF(sp4-el): 42.7 % SV(sp4-el): 33.8 ml LA A4 area: 14.2 cm2 RA A4 area: 13.0 cm2 TAPSE: 1.6 cm Time Measurements MV dec time: 0.22 sec Doppler Measurements & Calculations MV E max isaias: 62.1 cm/sec Lat Peak E' Isaias: 14.6 cm/sec Med Peak E' Isaias: 5.8 cm/sec MV A max isaias: 93.9 cm/sec E/E' lat: 4.3 E/E' med: 10.7 MV E/A: 0.66 MV V2 max: 92.8 cm/sec MV P1/2t max isaias: 76.5 cm/sec Ao V2 max: 131.7 cm/sec MV max P.4 mmHg MV P1/2t: 74.7 msec Ao max P.0 mmHg MV V2 mean: 50.0 cm/sec Ao V2 mean: 93.4 cm/sec MV mean P.2 mmHg MV dec slope: 300.1 cm/sec2 Ao mean P.9 mmHg MV V2 VTI: 21.3 cm MVA(P1/2t): 2.9 cm2 Ao V2 VTI: 23.4 cm AV (velocity ratio): 0.77 LV V1 max: 93.0 cm/sec PA V2 max: 93.0 cm/sec TR max isaias: 221.8 cm/sec LV V1 max P.5 mmHg PA max PG (full): 0.60 mmHg TR max P.7 mmHg LV V1 mean P.8 mmHg PA V2 mean: 68.7 cm/sec LV V1 mean: 62.6 cm/sec PA mean PG (full): 0.43 mmHg LV V1 VTI: 18.1 cm ECHO/Echo Complete W/ Contrast Interpretation Summary Normal LV size. Left ventricular systolic function is lower limits of normal. The left ventricular ejection fraction is 45 %. Stage 1 diastolic dysfunction. Contrast injection was performed. Compared to previous study, the left ventricu lar systolic function has improved.. Ordering Physician: Noemi Bullock Referring Physician: Nevaeh Oconnor Performed By: Polo Sarah RCS
== END | disposition home or self-care (01) ==
LOC: CVS 07:55
PROVIDERS: PCP Internal Medicine; Referring Provider Physician Assistant Medical; Visit Provider Physician Assistant Medical
DX: I42.0 Dilated cardiomyopathy (principal)
CPT/HCPCS: 93306; Q9957; A4216; C8929

== ENCOUNTER → 2023-12-01 | Outpatient (CLI) | payer MEDICAID, SELFPAY ==
--- NOTE | 2023-12-01 09:42 | NM_ITS ---
CLINICAL: 47-year-old female with history of clinical hyperparathyroidism. 99m Tc SESTAMIBI DUAL PHASE PLANAR and SPECT-CT PARATHYROID SCINTIGRAPHY COMPARISON: Thyroid ultrasound report 08/23/2023 FINDINGS: Following the intravenous administration of 26.0 mCi of 99m Tc sestamibi, planar image acquisitions of the anterior neck at 15 minutes and 3.0 hours post radiopharmaceutical provision and SPECT reconstructions obtained at 3.0 hours reveal: 1. Immediate static blood pool acquisitions demonstrate visualization of the right height left thyroid colloid in a U-shaped thyroid gland most accentuated in the inferior pole of the left thyroid lobe. 2. Delayed planar images depict near complete washout of the radiotracer from the right lobe and superior pole left lobe thyroid colloid with persistent visualization of uptake in the inferior pole of the left lobe. Emission computed tomographic reconstructions of the anterior neck reveal confirmation of the planar projection findings. NM/Parathyroid SPECT w/ CONCUR CT IMPRESSION: 1. ABNORMAL 99m Tc SESTAMIBI PLANAR-SPECT PARATHYROID IMAGING DUAL PHASE EXAMINATION. 2. There is apparent scintigraphic evidence of parathyroid adenoma involving the inferior pole of the left thyroid lobe as defined above. Electronically Signed: Nelson Esquivel DO at 13:25 EDT ,
== END | disposition home or self-care (01) ==
PROVIDERS: PCP Internal Medicine; Referring Provider Surgery; Visit Provider Surgery
DX: E21.3 Hyperparathyroidism, unspecified (principal); E04.2 Nontoxic multinodular goiter
CPT/HCPCS: 78072; A9500

== ENCOUNTER → 2024-05-07 | Outpatient (CLI) | payer MEDICAID, SELFPAY ==
[2024-05-07 12:04] LABS: PTHIN 150.9 pg/mL (18.4-80.1)
[2024-05-07 12:14] LABS: ALB/GLOB Ratio 0.8 RATIO (0.9-2.4); AST(SGOT) 30 U/L (15-37); Alanine Aminotransfer ALT/SGPT 46 U/L (13-56); Albumin, Serum 3.2 g/dL (3.2-5.0); Alkaline Phosphatase 190 U/L (45-117); Anion Gap 6 (5-15); BUN 19 mg/dL (7-18); BUN/Creat Ratio 34.2 RATIO (10-20); Calcium,Total 12.4 mg/dL (8.5-10.1); Chloride 107 mmol/L (98-107); Creatinine, Serum 0.56 mg/dL (0.55-1.02); EST Glomerular Filtration Rate 125 mL/min (>60); Est Glom Filt Rate - Afr Amer 151 mL/min (>60); Glucose 259 mg/dL (74-106); Potassium 4.4 mmol/L (3.5-5.1); Protein, Total 7.2 g/dL (6.4-8.2); Sodium Level 139 mmol/L (136-145)
[2024-05-09 12:07] LABS: Vitamin D 1,25-Dihydroxy 73.5 pg/mL (24.8-81.5)
== END | disposition home or self-care (01) ==
LOC: LAB 10:59
PROVIDERS: Nurse Practitioner Family; Surgery; PCP Internal Medicine; Referring Provider Physician Assistant Medical; Visit Provider Physician Assistant Medical
DX: E11.65 Type 2 diabetes mellitus with hyperglycemia (principal); E04.2 Nontoxic multinodular goiter
CPT/HCPCS: 36415; 80053; 82310; 82652; 83970

== ENCOUNTER 2024-06-12 15:02 | Outpatient (CLI) | payer MEDICAID, SELFPAY ==
[2024-06-12 16:33] LABS: Absolute Lymphocyte Count 3.22 X10^3/uL (0.83-4.51); Absolute Neutrophil Count 5.8 X10^3/uL (2.0-7.7); Basophil# 0.09 X10^3/uL; Basophil% 0.9 % (0-1); Eosinophil# 0.16 X10^3/uL; Eosinophils% 1.6 % (0-5); Hematocrit 46.6 % (37-47); Hemoglobin 15.3 g/dL (12.0-15.0); Lymphocyte # 3.22 X10^3/ul (0.83-4.51); Lymphocyte % 31.5 % (19-41); Mean Corp Hgb Conc 32.8 g/dL (32-36); Mean Corpuscular Volume 88.4 fL (81-99); Mean Platelet Vol. 11.3 fl (6.2-12.0); Monocyte# 0.93 X10^3/uL; Monocyte% 9.1 % (0-10); NRBC Flagged by Analyzer 0 % (0-5); Neutrophil # 5.78 X10^3/uL (2.7-7.7); Neutrophil % 56.4 % (47-70); Platelet Count 276 K/mm3 (150-450); RBC Distribution Width CV 12.8 % (11.6-14.6); RBC Distribution Width SD 41.3 fl (35.1-43.9); Red Blood Count 5.27 M/mm3 (4.2-5.4); White Blood Count 10.2 K/mm3 (4.4-11.0)
[2024-06-12 16:49] LABS: ALB/GLOB Ratio 1.2 RATIO (0.9-2.4); AST(SGOT) 24 U/L (<=31); Alanine Aminotransfer ALT/SGPT 31 U/L (<=34); Albumin, Serum 4.2 g/dL (3.5-5.0); Alkaline Phosphatase 175 U/L (35-104); Anion Gap 9 (5-15); BUN 15 mg/dL (4-19); BUN/Creat Ratio 27.9 RATIO (10-20); Calcium,Total 12.3 mg/dL (7.6-11.0); Carbon Dioxide 23.8 mmol/L (21.0-32.0); Chloride 106 mmol/L (98-108); Creatinine, Serum 0.55 mg/dL (0.70-1.20); EST Glomerular Filtration Rate 115 (>60); Globulin 3.4 g/dL (2.2-4.2); Glucose 226 mg/dL (70-99); Potassium 4.8 mmol/L (3.3-5.1); Protein, Total 7.6 g/dL (5.9-8.4); Sodium Level 139 mmol/L (133-145)
[2024-06-12 19:16] LABS: Cholesterol 126 mg/dL (<=200); High Density Lipoprotein 57 mg/dL; Low Density Lipoprotein Calc. 49 mg/dL; Triglycerides 103 mg/dL; Very Low Density Lipoprotein 21 mg/dL (5-40); cholesterol:hdl ratio screen 2.23
== END 2024-06-12 23:59 | disposition home or self-care (01) ==
LOC: BIMLAB 15:02
PROVIDERS: Physician Assistant; PCP Internal Medicine; Referring Provider Internal Medicine; Visit Provider Internal Medicine
DX: E11.65 Type 2 diabetes mellitus with hyperglycemia (principal); Z79.4 Long term (current) use of insulin; E78.2 Mixed hyperlipidemia
CPT/HCPCS: 36415; 80053; 80061; 85025

== ENCOUNTER → 2024-06-14 | Outpatient (CLI) | payer MEDICAID, SELFPAY | END | disposition home or self-care (01) | LOC: PSN 11:51 | PROVIDERS: PCP Internal Medicine; Referring Provider Physician Assistant Medical; Visit Provider Physician Assistant Medical | DX: I48.91 Unspecified atrial fibrillation (principal); R00.2 Palpitations | CPT/HCPCS: 93225; 93226 ==

== ENCOUNTER → 2024-06-18 | Outpatient (CLI) | payer MEDICAID, SELFPAY ==
--- NOTE | 2024-06-18 13:45 | BI_ITS ---
EXAM: SCRN MAMM (CAD)W/LINDA BILAT 06/18/2024 CLINICAL HISTORY: F, Age 48 y/o , SCREENING TECHNIQUE: Bilateral Diagnostic digital breast tomosynthesis with 2D and 3D images. Computer aided detection. COMPARISON: None. This is her baseline study. FINDINGS: TISSUE DENSITY: The breast tissue is composed of scattered area of fibroglandular density. Bilateral Breast Mammographic Findings: No suspicious masses, suspicious clustered microcalcifications, architectural distortion or secondary sign of malignancy is identified in either breast. A cardiac pacemaker device is identified in the left pectoral region which does obscure a small amount of breast tissue in this location. BI/SCRN MAMM (CAD)W/LINDA BILAT IMPRESSION: Right Breast: BIRADS 2 BENIGN FINDING. Left Breast: BIRADS 2 BENIGN FINDING. OVERALL FINAL ASSESSMENT: BIRADS 2 BENIGN FINDING. RECOMMENDATION: Routine annual follow-up in 1 Year A letter with findings and recommendations will be mailed to the patient. Reading Location: [id number]
== END | disposition home or self-care (01) ==
LOC: OPBI 13:28
PROVIDERS: PCP Internal Medicine; Referring Provider Internal Medicine; Visit Provider Internal Medicine
DX: Z12.31 Encounter for screening mammogram for malignant neoplasm of breast (principal)
CPT/HCPCS: 77063; 77067

== ENCOUNTER → 2024-07-04 | Outpatient (CLI) | payer MEDICAID, SELFPAY ==
--- NOTE | 2024-07-04 13:45 | ECHOCS_ITS ---
Reason For Study Reason For Study: DILATED CMP Procedure This was a 2D Doppler, Color Flow transthoracic echocardiogram. The study was technically difficult. Due to poor apical windows. Contrast injection was performed. Exam performed in department. Left Ventricle Normal LV size. The left ventricular ejection fraction is 50 %. Mid-anteroseptal : Mildly hypokinetic. Right Ventricle Normal RV size. ICD or pacer leads identified within the right ventricle. Normal systolic function. Atria Normal left atrium. Normal right atrium. Mitral Valve Normal mitral valve. Tricuspid Valve Normal tricuspid valve. Aortic Valve Trisinus/trileaflet aortic valve. Pulmonic Valve Normal pulmonic valve. Great Vessels Normal aortic root. The pulmonary artery is normal size. Inferior vena cava collapse with respiration. Pericardium/Pleural No pericardial effusion. Medication 22 gauge I.V. with prn adaptor inserted into right arm. Diluted definity 2.0ml given slow IV push to enhance endocardial definition. MMode/2D Measurements & Calculations LVIDd: 5.5 cm IVSd: 1.1 cm Ao root diam: 3.1 cm LVIDs: 3.4 cm LVPWd: 1.1 cm RVDd: 2.8 cm FS: 38.3 % LAV(MOD-bp): 37.5 ml LVAd ap4: 24.1 cm2 LVAd ap2: 21.8 cm2 LAV(MOD-bp) Indexed: 19.9 ml/m2 LVLd ap4: 7.2 cm LVLd ap2: 6.5 cm LAV(MOD-sp2): 40.2 ml EDV(MOD-sp4): 66.7 ml EDV(MOD-sp2): 59.2 ml LAV(MOD-sp4): 36.4 ml EDV(sp4-el): 68.6 ml EDV(sp2-el): 62.0 ml LVAs ap4: 15.5 cm2 LVAs ap2: 13.2 cm2 LVLs ap4: 7.1 cm LVLs ap2: 6.0 cm ESV(MOD-sp4): 29.0 ml ESV(MOD-sp2): 23.8 ml ESV(sp4-el): 28.8 ml ESV(sp2-el): 24.4 ml EF(MOD-sp4): 56.5 % EF(MOD-sp2): 59.8 % EF(sp4-el): 58.0 % SV(MOD-sp4): 37.7 ml SV(MOD-sp2): 35.4 ml SV(sp4-el): 39.7 ml SI(MOD-sp4): 20.0 ml/m2 SI(MOD-sp2): 18.8 ml/m2 LA A4 area: 13.4 cm2 RA A4 area: 11.0 cm2 TAPSE: 1.8 cm Time Measurements MV dec time: 0.17 sec Doppler Measurements & Calculations MV E max isaias: 61.5 cm/sec Lat Peak E' Isaias: 15.0 cm/sec Med Peak E' Isaias: 7.6 cm/sec MV A max isaias: 77.9 cm/sec E/E' lat: 4.1 E/E' med: 8.1 MV E/A: 0.79 Ao V2 max: 150.0 cm/sec LV V1 max: 80.4 cm/sec PA V2 max: 98.5 cm/sec Ao max P.0 mmHg LV V1 max P.6 mmHg PA V2 mean: 70.5 cm/sec Ao V2 mean: 105.8 cm/sec LV V1 mean P.3 mmHg Ao mean P.1 mmHg LV V1 mean: 52.4 cm/sec Ao V2 VTI: 25.7 cm LV V1 VTI: 16.2 cm AV (velocity ratio): 0.63 TR max isaias: 234.3 cm/sec TR max P.0 mmHg ECHO/Echo Complete W/ Contrast Interpretation Summary Normal LV size. The left ventricular ejection fraction is 50 %. Mid-anteroseptal : Mildly hypokinetic Compared to previous study, the left ventricular systolic function has improved .. Contrast injection was performed. Ordering Physician: Slim Krishna Referring Physician: Mary Grace Boswell Performed By: Wen Walton RDCS, RVT
[2024-07-04 16:17] LABS: PTHIN 214 pg/mL (11-61)
[2024-07-04 16:18] LABS: ALB/GLOB Ratio 1.2 RATIO (0.9-2.4); AST(SGOT) 22 U/L (<=31); Alanine Aminotransfer ALT/SGPT 24 U/L (<=34); Albumin, Serum 3.9 g/dL (3.5-5.0); Alkaline Phosphatase 146 U/L (35-104); Anion Gap 9 (5-15); BUN 14 mg/dL (4-19); BUN/Creat Ratio 27.4 RATIO (10-20); Calcium,Total 12.2 mg/dL (7.6-11.0); Carbon Dioxide 24.4 mmol/L (21.0-32.0); Chloride 104 mmol/L (98-108); Creatinine, Serum 0.51 mg/dL (0.70-1.20); EST Glomerular Filtration Rate 117 (>60); Follicle Stimulating Hormone 20.2 mIU/mL; Globulin 3.2 g/dL (2.2-4.2); Glucose 202 mg/dL (70-99); Potassium 4.5 mmol/L (3.3-5.1); Protein, Total 7.1 g/dL (5.9-8.4); Sodium Level 137 mmol/L (133-145); Total Bilirubin 0.46 mg/dL (0.00-1.30); Vitamin D,25 Hydroxy 25.4 ng/mL (30-100)
== END | disposition home or self-care (01) ==
PROVIDERS: Nurse Practitioner Family; PCP Internal Medicine; Referring Provider Nurse Practitioner Family; Visit Provider Nurse Practitioner Family
DX: I42.0 Dilated cardiomyopathy (principal); E21.3 Hyperparathyroidism, unspecified; M85.80 Other specified disorders of bone density and structure, unspecified site
CPT/HCPCS: 36415; 80053; 82306; 83001; 83970; 93306; Q9957; A4216; C8929

== ENCOUNTER → 2024-12-04 | Outpatient (CLI) | payer MEDICAID, SELFPAY | END | disposition home or self-care (01) | LOC: LABSPEC 15:56 | PROVIDERS: PCP Internal Medicine; Referring Provider Family Medicine; Visit Provider Family Medicine | DX: R39.9 Unspecified symptoms and signs involving the genitourinary system (principal) | CPT/HCPCS: 87077; 87086; 87088; 87186 ==

== ENCOUNTER 2024-12-25 20:29 | Inpatient (IN) | payer MEDICAID, SELFPAY ==
[2024-12-25 20:30] VITALS: BP 146/99; PULSE 114; RESP 18; TEMP 36.9; O2SAT 98; BMI 38.8
[2024-12-25 20:32] VITALS: BP 146/99; PULSE 114; RESP 18; TEMP 36.9; O2SAT 98
--- NOTE | 2024-12-25 21:40 | EKG12_ITS ---
Test Reason : DYSRHYTHMIA Blood Pressure : */* mmHG Vent. Rate : 114 BPM Atrial Rate : 114 BPM P-R Int : 146 ms QRS Dur : 92 ms QT Int : 316 ms P-R-T Axes : 32 -2 10 degrees QTcB Int : 435 ms Sinus tachycardia Minimal voltage criteria for LVH, may be normal variant ( R in aVL ) Borderline ECG Confirmed by KEVIN ORLANDO, EMMA ([id number]), editor in chief LADONNA BOWMAN ([id number]) on 12/26/2024 8:24:24 AM Referred By: Confirmed By: EMMA BROWN MD
--- NOTE | 2024-12-25 22:20 | RAD_ITS ---
PROCEDURE: FOOT MIN 3 VIEWS 12/25/2024 REASON FOR EXAM: DIABETIC FOOT INFECTION GREAT TOE AND 1ST AND 2ND TECHNIQUE: Procedure Code: RADFO Modality: DX Procedure: FOOT MIN 3 VIEWS Laterality: Left COMPARISON: None. FINDINGS: No acute fracture or dislocation. Preserved joint spaces. Alignment is anatomic. No osseous erosion/destruction or periosteal reaction appreciated. Soft tissue swelling of the 1st digit. No subcutaneous emphysema or radiopaque foreign body appreciated. RAD/Foot min 3 Views IMPRESSION: Soft tissue swelling of the great toe. No radiographic evidence for osteomyeli tis. Reading Location: [id number]
[2024-12-25 22:24] LABS: Partial Thromboplast Time 26.7 Seconds (24.1-36.2); Prothrombin Time (Protime)PT. 12.9 SECONDS (11.7-14.9)
[2024-12-25 22:43] LABS: AST(SGOT) 24 U/L (<=31); Alanine Aminotransfer ALT/SGPT 28 U/L (<=34); Albumin, Serum 3.9 g/dL (3.5-5.0); Alkaline Phosphatase 150 U/L (35-104); Anion Gap 11 (5-15); BUN 11 mg/dL (4-19); BUN/Creat Ratio 24.4 RATIO (10-20); CRP 66.80 mg/L (0.0-3.0); Calcium,Total 12.0 mg/dL (7.6-11.0); Carbon Dioxide 24.3 mmol/L (21.0-32.0); Chloride 102 mmol/L (98-108); Estimated Creatinine Clearance 160.90 ml/min (50-250); Globulin 3.3 g/dL (2.2-4.2); Glucose 188 mg/dL (70-99); Potassium 4.3 mmol/L (3.3-5.1)
[2024-12-25 22:45] LABS: Hematocrit 43.9 % (37-47); Hemoglobin 14.2 g/dL (12.0-15.0); Immature Granulocytes Count 0.050 X10^3/uL (0.0-0.0); Mean Corp Hgb Conc 32.3 g/dL (32-36); Mean Corpuscular Volume 89.6 fL (81-99); Mean Platelet Vol. 11.3 fl (6.2-12.0); NRBC Flagged by Analyzer 0 % (0-5); Platelet Count 212 K/mm3 (150-450); RBC Distribution Width CV 12.6 % (11.6-14.6); RBC Distribution Width SD 41.3 fl (35.1-43.9); Red Blood Count 4.90 M/mm3 (4.2-5.4); White Blood Count 12.3 K/mm3 (4.4-11.0)
[2024-12-25] MEDS: Piperacil/Tazobactam 4.5 GM in 0.9% Normal Saline (100mL MB+) 100 ML IV (22:45)
[2024-12-25] MEDS: 0.9% Normal Saline (1000mL) 1,000 ML 250 ML IV (22:45)
[2024-12-25 22:57] VITALS: BP 145/88; PULSE 111; RESP 15; TEMP 36.9; O2SAT 96
[2024-12-25 22:59] LABS: Squamous Epithelial Cells - UA 0 SEEN /hpf (5-10)
[2024-12-25 23:00] VITALS: BP 150/90; PULSE 111; RESP 18; TEMP 36.9; O2SAT 98
[2024-12-25 23:00] LABS: Color, Urine Yellow (Yellow); Glucose, Dipstick Normal (Normal); Ketone-Dipstick 5 mg/dl (Negative); Leukocyte Esterase-Dipstick 100 /ul (Negative); Nitrite-Dipstick Negative (Negative); Occult Blood-Urine Negative /ul (Negative); Protein-Dipstick 15 mg/dl (Negative); Specific Gravity, Urine 1.015 (1.002-1.030); Urine Bilirubin Dipstick Negative (Negative)
--- NOTE | 2024-12-25 23:24 | EX.ED.DYSGE1 ---
HPI History of Present Illness Chief Complaint: Wound Detail of Chief Complaint: Wound right toe that is now infected Informant: patient Onset/Context/Timing Onset: Yesterday Context: Sudden Onset Timing: Continuous Quality: Swollen painful left great toe Location: Left great toe and foot Current Severity: Moderate Maximum Severity: Severe Worsened by: Palpation and weightbearing Relieved by: Nothing Associated Symptoms Associated Symptoms: Subjective fever, chills and palpitations. Patient also endorses elevated Narrative Narrative: Patient is a 49-year-old female who has type 2 diabetes on insulin who presents because of a wound noted medial aspect of the left great toe got worse over the last 24 hours. She has a picture. There is an area of skin breakdown with some possibly necrotic tissue. The patient now has significant redness swelling of the great toe and distal aspect of the left foot. She endorses subjective fever, chills, palpitations and her blood sugars for the past 24 hours have been higher than normal. She denies prior infection. She does not see a binding end stitcher. She denies headache, visual, ocular auditory symptoms. She denies cardiac or respiratory symptoms. She denies abdominal pain, nausea, vomiting or diarrhea. She endorses increased urination without dysuria or hematuria. She denies myalgias or arthralgias. Recent Illness/Hospitalization: No PFSH [facility] Medical History Endometriosis IBS (irritable bowel syndrome) Osteopenia determined by x-ray Wears glasses Hydradenitis MRSA infection Ambulates with cane Fatty liver Restless legs Back pain Heartburn Non-smoker On home oxygen therapy CPAP (continuous positive airway pressure) dependence Shortness of breath on exertion Leg cramps History of pain when walking Right shoulder pain Right hip pain Falls Hyperparathyroidism Hypercalcemia Abnormal urinalysis Screening for thyroid disorder COVID (~03/2024) Intertriginous dermatitis associated with moisture Syncope (08/07/20) Abscess of maxilla Dentalgia Facial cellulitis ICD (implantable cardioverter-defibrillator) discharge (11/24/20) Chronic systolic (congestive) heart failure Cardiomyopathy, dilated, nonischemic Insomnia Type 2 diabetes mellitus without complication Diverticulitis Essential hypertension ANA (obstructive sleep apnea) Tachycardia Neuropathy Anxiety and depression Migraines Neuropathy IBS (irritable bowel syndrome) Arthritis Obesity Nonhealing surgical wound Open wound of abdominal wall with complication Open wound of neck with complication Abdominal panniculus, symptomatic History of MRSA infection Morbid obesity due to excess calories Hyperlipidemia Home Medications Medication Instructions Recorded Last Taken Type blood-glucose meter #1 ea 11/19/20 Unknown Rx aspirin 81 mg tablet,delayed 81 mg PO DAILY@0800 heart health 02/16/22 Unknown Rx release #90 tabs Handicap Placard #1 ea 04/22/22 Unknown Rx melatonin 10 mg tablet 10 mg PO QHS sleep #30 tabs 04/22/22 Unknown Rx lancets #100 ea 06/21/22 Unknown Rx blood sugar diagnostic (Blood #100 ea 03/09/23 Unknown Rx Glucose Test strips) cholecalciferol (vitamin D3) 50 2,000 unit PO DAILY supplement #90 08/10/23 Unknown Rx mcg (2,000 unit) capsule caps montelukast 10 mg tablet 10 mg PO DAILY #60 TABLETS 08/10/23 Unknown Rx pen needle, diabetic 31 gauge x #100 ea 08/10/23 Unknown Rx 5/16" (Sure-Fine Pen [place]) duloxetine 60 mg capsule,delayed See Rx Instructions .Route 04/05/24 Unknown Rx release .COMPLEX #60 caps blood sugar diagnostic (OneTouch #100 ea 04/26/24 Unknown Rx Verio test strips) blood-glucose meter (OneTouch #1 ea 04/26/24 Unknown Rx Verio Reflect Meter) blood-glucose,liner reroll tender,cont #1 ea 04/26/24 Unknown Rx (FreeStyle [place] 3 Angela) ivabradine 5 mg tablet (Corlanor) 5 mg PO BIDWMEAL #180 tabs 05/07/24 Unknown Rx sacubitril 24 mg-valsartan 26 mg 1 tab PO BID #60 tabs 05/07/24 Unknown Rx tablet (Entresto) duloxetine 60 mg capsule,delayed 60 mg PO BID #180 caps 06/05/24 Unknown Rx release (Cymbalta) gabapentin 800 mg tablet 800 mg PO TID #270 tabs 06/05/24 Unknown Rx magnesium oxide 250 mg PO DAILY #90 tabs 06/05/24 Unknown Rx pen needle, diabetic 32 gauge x #100 ea 08/01/24 Unknown Rx 5/32" (BD Ultra-Fine Blaire Pen Needle) carvedilol 25 mg tablet 37.5 mg (1.5 x 25 mg) PO BID 90 08/21/24 Unknown Rx days #270 tabs dicyclomine 20 mg tablet 20 mg PO BID #180 tabs 08/29/24 Unknown Rx bupropion HCl 150 mg 24 hr tablet, 150 mg PO QAM #90 TABLETS 09/03/24 Unknown Rx extended release insulin aspart U-100 100 unit/mL 20 unit (0.2 mL) subcut TID #18 mL 09/06/24 Unknown Rx (3 mL) subcutaneous pen (Novolog FlexPen U-100 Insulin aspart) insulin glargine 100 unit/mL (3 20 unit (0.2 mL) subcut QAM #18 mL 09/06/24 Unknown Rx mL) subcutaneous pen (Lantus Solostar U-100 Insulin) omeprazole 40 mg capsule,delayed 40 mg PO DAILY GERD #30 caps 11/05/24 Unknown Rx release blood-glucose sensor (FreeStyle #2 ea 11/08/24 Unknown Rx Magnolia 3 Plus Sensor device) metformin 500 mg tablet 1,000 mg (2 x 500 mg) PO BIDWMEAL 11/08/24 Unknown Rx #360 tabs diltiazem HCl 240 mg 240 mg PO DAILY Heart #90 caps 12/11/24 Unknown Rx capsule,extended release 24 hr furosemide 40 mg tablet 40 mg PO DAILY PRN edema #30 12/11/24 Unknown Rx TABLETS potassium chloride 20 mEq 40 meq (2 x 20 mEq) PO BID #360 12/11/24 Unknown Rx tablet,extended release tabs rosuvastatin 10 mg tablet 10 mg PO DAILY #90 tabs 12/11/24 Unknown Rx semaglutide 0.25 mg or 0.5 mg (2 0.25 mg (0.368 mL) subcut QWEEK #3 12/13/24 Unknown Rx mg/3 mL) subcutaneous pen injector mL (Ozempic) Allergy/AdvReac Type Severity Reaction Status Date / Time doxycycline Allergy Upset Verified 12/25/24 20:31 Stomach pregabalin (From Lyrica) Allergy Other Verified 12/25/24 20:31 sulfamethoxazole (From Allergy Rash Verified 12/25/24 20:31 Bactrim) tramadol HCl (From Ultram) Allergy Swelling Verified 12/25/24 20:31 trimethoprim (From Bactrim) Allergy Rash Verified 12/25/24 20:31 vancomycin Allergy Swelling Verified 12/25/24 20:31 Family History Mother Arthritis Breast cancer Father Arthritis Depression Gout Grandmother Arthritis CVA (cerebral vascular accident) Diabetes Heart disease Hypertension Thyroid disorder Cancer thyroid Surgical History H/O laparoscopy S/P skin and subcutaneous tissue surgery S/P pilonidal cyst excision History of dental surgery History of implantable cardiac defibrillator (ICD) (11/15/19) History of left heart catheterization (06/01/19) History of neck surgery navel removal History of cholecystectomy History of hysterectomy Social History adopted: No household members: spouse and children number of children: 1 current occupational status: unemployed pets and animals: Yes pets and animals: cat(s) and dog(s) sexually active: No Smoking Status: Never smoker alcohol intake: never substance use type: marijuana and other details: gummies diet: diabetic and gluten free caffeine: Yes (2) Type: carbonated beverages what type of physical activity do you participate in: none do you feel safe at home: Yes ROS ROS ED Constitutional Constitutional ED: Reports chills, fever(s) and subjective; Denies sweats or weight loss Eyes Eyes: Denies blurry vision or change in vision ENT ENT ED: Denies ear pain or rhinorrhea Cardiovascular Cardiovascular: Denies chest pain or palpitations Respiratory/Chest Respiratory/Chest: Denies cough, dyspnea or dyspnea on exertion Gastrointestinal Gastrointestinal: Denies abdominal pain, diarrhea, melena or vomiting Genitourinary Genitourinary ED: Reports urinary frequency; Denies dysuria or hematuria Musculoskeletal Musculoskeletal: Denies arthralgias or myalgias Integumentary Reports abscess and rash Neurologic Neurologic: Denies headache(s) or paresthesias Endocrine Endocrinology: Denies cold intolerance or heat intolerance Hematologic/Lymphatic Hematologic/Lymphatic: Reports systems reviewed and no addt'l complaints, except as documented EXAM Physical Exam Const Vital Signs: 12/25/24 20:30 12/25/24 20:32 12/25/24 22:57 Temperature 98.5 F 98.5 F 98.5 F Temperature Source Oral Oral Oral Pulse Rate 114 H 114 H 111 H Respiratory Rate 18 18 15 Blood Pressure 146/99 H 146/99 H 145/88 H Blood Pressure Mean 114 114 107 Pulse Ox 98 98 96 Oxygen Delivery Method Room Air Room Air Room Air 12/25/24 22:57 12/25/24 22:57 12/25/24 23:00 Temperature 98.5 F Temperature Source Oral Pulse Rate 111 H 111 H Respiratory Rate 15 18 Blood Pressure 145/88 H 150/90 H Blood Pressure Mean 107 110 Pulse Ox 96 98 Oxygen Delivery Method Room Air Room Air Room Air Positive well nourished and well developed Constitutional Narrative: Patient appears slightly uncomfortable. Her blood pressure is elevated. Heart rate is elevated. She is not febrile. General Appearance ED: well developed HEENT Reports dry mucous membranes HEENT Narrative: Head is atraumatic no cephalic. Ears normal. Nares patent. Posterior pharynx is normal. Mouth ED: Yes dry mucous membranes Mouth: dry mucous membranes Eyes PERRL and EOMs intact bilaterally General Eye ED: Negative for pale conjunctiva or scleral icterus Neck no lymphadenopathy, supple and no JVD Chest Wall inspection of chest normal Resp normal respiratory effort and clear to auscultation bilaterally Cardio regular rhythm, S1 normal heart sound, S2 normal heart sound and no murmurs Rate: tachycardic GI normal to inspection, nondistended, normoactive bowel sounds, non-tender, non-distended and no masses; Negative for hepatosplenomegaly Extremity Negative for normal to inspection Extremity Narrative: Patient has a hemorrhagic what appears to be purulent blister dorsal medial aspect of the left great toe. There may be bubbles in the blister. There is evidence of cellulitis of the toe and cellulitis of the distal portion of the left foot. Capillary refill is normal. Difficult to palpate DP pulse. There is no lymphangitis. There is no popliteal lymphadenopathy. Neuro oriented x3 and CN's II-XII intact bilaterally Sensorium / Orientation: alert Psych mental status grossly normal Skin Skin Narrative: Described under the extremity portion of the physical narrative. MDM MDM MDM Narrative Medical decision making narrative: Patient with a diabetic foot infection. Will obtain x-ray to assess for osteomyelitis since she has had a chronic wound and had necrosis. Appropriate blood work was obtained which included ESR, CRP, CBC, competence of metabolic panel and coags. The sepsis order set was initiated. She was treated with Zosyn and clindamycin. She has rash with vancomycin. Reason clindamycin was given because of MRSA coverage. Lab Data Attestation: I reviewed the patient's lab results. Lab results narrative: White count is slight elevated 12.7. There is no shift. Comprehensive metabolic panel is remarkable for a glucose of 188 with a normal CO2 anion gap. BUN and creatinine are normal. C-reactive protein is elevated at 66.8 ESR is normal. This is not unexpected because her infection started last 12 to 24 hours. Urinalysis is remarkable for ketones. Labs: Laboratory Results - last 24 hr 12/25/24 12/25/24 22:02 22:48 WBC 12.3 H RBC 4.90 Hgb 14.2 Hct 43.9 MCV 89.6 MCH 29.0 MCHC 32.3 RDW Std Deviation 41.3 RDW Coeff of Zeny 12.6 Plt Count 212 MPV 11.3 Immature Gran % (Auto) 0.400 Neut % (Auto) 62.2 Lymph % (Auto) 25.3 [place] % (Auto) 10.2 H Eos % (Auto) 1.4 Baso % (Auto) 0.5 Absolute Neuts (auto) 7.7 Absolute Lymphs (auto) 3.11 Nucleated RBC % 0 ESR 15 PT 12.9 INR 1.0 APTT 26.7 Sodium 137 Potassium 4.3 Chloride 102 Carbon Dioxide 24.3 Anion Gap 11 BUN 11 Creatinine 0.45 L Estim Creat Clear Calc 160.90 Est GFR (MDRD) Non-Af 119 BUN/Creatinine Ratio 24.4 H Glucose 188 H Lactic Acid 1.8 Calcium 12.0 H Total Bilirubin 0.67 AST 24 ALT 28 Alkaline Phosphatase 150 H C-React Prot Ext Range 66.80 H Total Protein 7.1 Albumin 3.9 Globulin 3.3 Albumin/Globulin Ratio 1.2 Urine Color Yellow Urine Clarity Clear Urine pH 6.0 Ur Specific [place] 1.015 Urine Protein 15 H Urine Glucose (UA) Normal Urine Ketones 5 H Urine Occult Blood Negative Urine Nitrite Negative Urine Bilirubin Negative Urine Urobilinogen 4 H Ur Leukocyte Esterase 100 H Radiography Chest X-Ray - ED: Read by ED Physician (Three-view x-ray reveals soft tissue swelling of the great toe with no evidence of osteomyelitis. This independently reviewed interpreted by me.0) Diagnostic Testing: Clinical Impression(s) from Imaging Studies Foot X-Ray 12/25/24 22:20 IMPRESSION: Soft tissue swelling of the great toe. No radiographic evidence for osteomyelitis. Reading Location: [facility] EK Initial EKG: Attestation: I personally reviewed and interpreted this EKG as follows: Interpretation: Sinus Tachycardia (Rate is 114. MA interval is under 46 ms. QRS duration 92 ms. QT durations 116 ms. [place] is normal. There is evidence of LVH by voltage criteria.) Management Discussion w/another healthcare provider: Hospitalist (Spoke with Dr. Velvet Griggs hospitalist. Full admit PCU.) Discharge Plan Dx/Rx/DC Orders Clinical Impression: Diabetic infection of left foot, Neuropathy due to type 2 diabetes mellitus, Type 2 diabetes mellitus with hyperglycemia, Sinus tachycardia by electrocardiogram, Cardiomyopathy, dilated, nonischemic, ANA (obstructive sleep apnea), Essential hypertension, History of implantable cardiac defibrillator (ICD) Disposition Disposition: Acute Care Hospital [facility]
[2024-12-25 23:29] LABS: Mucous, Urine RARE /hpf (<or=2+); Red Blood Cells-Urine 0-5 SEEN /hpf (0-5)
[2024-12-25] MEDS: Clindamycin 600 MG/50 ML BAG 100 MG IV (23:29)
--- NOTE | 2024-12-25 23:46 | PCM.HP.STD ---
HPI - General General Date of Admission: 12/25/24 Date of Service: 12/25/24 Chief Complaint: L great toe wound/cellulitis/blister, worsening x 24 hours. HPI Narrative The patient is a 49 y/o F w/ PMHx: Obesity, IBS, Allergic rhinitis, RLS, obesity, ANA on CPAP, GERD, Hyperparathyroidism with known hypercalcemia, HFrEF s/p AICD/Cardiomyopathy nonischemic/dilated, Diabetes mellitus type II with chronic neuropathy, Anxiety and Depression who presents to the [facility] ED on 11/28/2024 with a right toe wound that has become red and swollen as well as increasingly painful worsened by any palpation of the region or weightbearing with subjective fevers and chills as well as racing heart/palpitations reporting that the wound to the medial aspect of the left great toe worsened more markedly over the last 24 hours with skin breakdown as well as redness. In the ED upon evaluation patient with noted purulent blister on the dorsal medial aspect of the left great toe with erythema extending up to the distal portion of the left foot. Workup in the ED included T98.5, heart rate 114, BP 146/99, respiratory rate 18, 98% on room air with most recent repeat vital signs T98.5, heart 111, BP 150/90, respiratory rate 18, 98% room air, CBC with WC 12.3, hemoglobin 14.2, platelet 212 without marked shift, unremarkable coags, CMP with BUN/creatinine 11/0.45, GFR 119, glucose 188, lactic acid 1.8, calcium 12, T. bili 0.67, AST/LT 24/28, alk phos 150, CRP 66.80, ESR 15, urinalysis with clear urine, specific gravity 1.015, protein 15, ketone 5, negative nitrite, leukocyte esterase 100 with urine WBCs 5-10 with 1+ urine bacteria, plain film of the left foot with soft tissue swelling of the great toe with no acute radiographic evidence of osteomyelitis, EKG with sinus tachycardia with no acute evidence of ischemia. In the ED patient ministered 1 L normal saline, morphine 4 mg IV x 1, Zofran 4 mg IV x 1, Zosyn 4.5 g IV x 1, clindamycin 600 mg IV x 1. [facility] Medical History Endometriosis IBS (irritable bowel syndrome) Osteopenia determined by x-ray Wears glasses Hydradenitis MRSA infection Ambulates with cane Fatty liver Restless legs Back pain Heartburn Non-smoker On home oxygen therapy CPAP (continuous positive airway pressure) dependence Shortness of breath on exertion Leg cramps History of pain when walking Right shoulder pain Right hip pain [place] Hyperparathyroidism Hypercalcemia Abnormal urinalysis Screening for thyroid disorder COVID (~03/2024) Intertriginous dermatitis associated with moisture Syncope (08/07/20) Abscess of maxilla Dentalgia Facial cellulitis ICD (implantable cardioverter-defibrillator) discharge (11/24/20) Chronic systolic (congestive) heart failure Cardiomyopathy, dilated, nonischemic Insomnia Type 2 diabetes mellitus without complication Diverticulitis Essential hypertension ANA (obstructive sleep apnea) Tachycardia Neuropathy Anxiety and depression Migraines Neuropathy IBS (irritable bowel syndrome) Arthritis Obesity Nonhealing surgical wound Open wound of abdominal wall with complication Open wound of neck with complication Abdominal panniculus, symptomatic History of MRSA infection Morbid obesity due to excess calories Hyperlipidemia Home Medications Medication Instructions Recorded Last Taken Type blood-glucose meter #1 ea 11/19/20 Unknown Rx aspirin 81 mg tablet,delayed 81 mg PO DAILY@0800 heart health 02/16/22 Unknown Rx release #90 tabs Handicap Placard #1 ea 04/22/22 Unknown Rx melatonin 10 mg tablet 10 mg PO QHS sleep #30 tabs 04/22/22 Unknown Rx lancets #100 ea 06/21/22 Unknown Rx blood sugar diagnostic (Blood #100 ea 03/09/23 Unknown Rx Glucose Test strips) cholecalciferol (vitamin D3) 50 2,000 unit PO DAILY supplement #90 08/10/23 Unknown Rx mcg (2,000 unit) capsule caps montelukast 10 mg tablet 10 mg PO DAILY #60 TABLETS 08/10/23 Unknown Rx pen needle, diabetic 31 gauge x #100 ea 08/10/23 Unknown Rx 5/16" (Sure-Fine Pen [place]) duloxetine 60 mg capsule,delayed See Rx Instructions .Route 04/05/24 Unknown Rx release .COMPLEX #60 caps blood sugar diagnostic (OneTouch #100 ea 04/26/24 Unknown Rx Verio test strips) blood-glucose meter (OneTouch #1 ea 04/26/24 Unknown Rx Verio Reflect Meter) blood-glucose,oracle sql developer,cont #1 ea 04/26/24 Unknown Rx (FreeStyle [place] 3 [place]) ivabradine 5 mg tablet (Corlanor) 5 mg PO BIDWMEAL #180 tabs 05/07/24 Unknown Rx sacubitril 24 mg-valsartan 26 mg 1 tab PO BID #60 tabs 05/07/24 Unknown Rx tablet (Entresto) duloxetine 60 mg capsule,delayed 60 mg PO BID #180 caps 06/05/24 Unknown Rx release (Cymbalta) gabapentin 800 mg tablet 800 mg PO TID #270 tabs 06/05/24 Unknown Rx magnesium oxide 250 mg PO DAILY #90 tabs 06/05/24 Unknown Rx pen needle, diabetic 32 gauge x #100 ea 08/01/24 Unknown Rx 32" (BD Ultra-Fine [place] Pen Needle) carvedilol 25 mg tablet 37.5 mg (1.5 x 25 mg) PO BID 90 08/21/24 Unknown Rx days #270 tabs dicyclomine 20 mg tablet 20 mg PO BID #180 tabs 08/29/24 Unknown Rx bupropion HCl 150 mg 24 hr tablet, 150 mg PO QAM #90 TABLETS 09/03/24 Unknown Rx extended release insulin aspart U-100 100 unit/mL 20 unit (0.2 mL) subcut TID #18 mL 09/06/24 Unknown Rx (3 mL) subcutaneous pen (Novolog FlexPen U-100 Insulin aspart) insulin glargine 100 unit/mL (3 20 unit (0.2 mL) subcut QAM #18 mL 09/06/24 Unknown Rx mL) subcutaneous pen (Lantus Solostar U-100 Insulin) omeprazole 40 mg capsule,delayed 40 mg PO DAILY GERD #30 caps 11/05/24 Unknown Rx release blood-glucose sensor (FreeStyle #2 ea 11/08/24 Unknown Rx Magnolia 3 Plus Sensor device) metformin 500 mg tablet 1,000 mg (2 x 500 mg) PO BIDWMEAL 11/08/24 Unknown Rx #360 tabs diltiazem HCl 240 mg 240 mg PO DAILY Heart #90 caps 12/11/24 Unknown Rx capsule,extended release 24 hr furosemide 40 mg tablet 40 mg PO DAILY PRN edema #30 12/11/24 Unknown Rx TABLETS potassium chloride 20 mEq 40 meq (2 x 20 mEq) PO BID #360 12/11/24 Unknown Rx tablet,extended release tabs rosuvastatin 10 mg tablet 10 mg PO DAILY #90 tabs 12/11/24 Unknown Rx semaglutide 0.25 mg or 0.5 mg (2 0.25 mg (0.368 mL) subcut QWEEK #3 12/13/24 Unknown Rx mg/3 mL) subcutaneous pen injector mL (Ozempic) Allergy/AdvReac Type Severity Reaction Status Date / Time doxycycline Allergy Upset Verified 12/25/24 20:31 Stomach pregabalin (From Lyrica) Allergy Other Verified 12/25/24 20:31 sulfamethoxazole (From Allergy Rash Verified 12/25/24 20:31 Bactrim) tramadol HCl (From Ultram) Allergy Swelling Verified 12/25/24 20:31 trimethoprim (From Bactrim) Allergy Rash Verified 12/25/24 20:31 vancomycin Allergy Swelling Verified 12/25/24 20:31 Family History Mother Arthritis Breast cancer Father Arthritis Depression Gout Grandmother Arthritis CVA (cerebral vascular accident) Diabetes Heart disease Hypertension Thyroid disorder Cancer thyroid Surgical History H/O laparoscopy S/P skin and subcutaneous tissue surgery S/P pilonidal cyst excision History of dental surgery History of implantable cardiac defibrillator (ICD) (11/15/19) History of left heart catheterization (06/01/19) History of neck surgery navel removal History of cholecystectomy History of hysterectomy Social History adopted: No household members: spouse and children number of children: 1 current occupational status: unemployed pets and animals: Yes pets and animals: cat(s) and dog(s) sexually active: No Smoking Status: Never smoker alcohol intake: never substance use type: marijuana and other details: gummies diet: diabetic and gluten free caffeine: Yes (2) Type: carbonated beverages what type of physical activity do you participate in: none do you feel safe at home: Yes ROS ROS Narrative Admission Review of Systems: CONSTITUTIONAL: No weight loss, + subjective fever, chills, weakness or fatigue. HEENT: Eyes: No visual loss, blurred vision, double vision or yellow sclerae. Ears, Nose, Throat: No hearing loss, sneezing, congestion, runny nose or sore throat. SKIN: No rash or itching, lesions except notable + left diabetic foot blister/wound with erythema to the foot. CARDIOVASCULAR: + Racing heart/palpitations, edema to the affected extremity. No chest pain, chest pressure or chest discomfort, orthopnea, syncopal events. RESPIRATORY: No shortness of breath, cough or sputum, wheezing, hemoptysis. GASTROINTESTINAL: No anorexia, nausea, vomiting or diarrhea, abdominal pain, melena, BRBPR. GENITOURINARY: No dysuria, frequency, urgency or retention. NEUROLOGICAL: No headache, dizziness, syncope, paralysis, ataxia, numbness or tingling in the extremities, focal weakness, change in bowel or bladder control, seizure. MUSCULOSKELETAL: + muscle, back pain, joint pain or stiffness. HEMATOLOGIC: No anemia, bleeding or bruising. LYMPHATICS: No enlarged nodes. No history of splenectomy. PSYCHIATRIC: + History of anxiety and depression. ENDOCRINOLOGIC: No reports of sweating, cold or heat intolerance. No polyuria or polydipsia. ALLERGIES: + History of allergic rhinitis. Vital Signs Vital Signs Vital Signs: 12/25/24 20:30 12/25/24 20:32 12/25/24 22:57 Temperature 98.5 F 98.5 F 98.5 F Temperature Source Oral Oral Oral Pulse Rate 114 H 114 H 111 H Respiratory Rate 18 18 15 Blood Pressure 146/99 H 146/99 H 145/88 H Blood Pressure Mean 114 114 107 Pulse Ox 98 98 96 Oxygen Delivery Method Room Air Room Air Room Air 12/25/24 22:57 12/25/24 22:57 12/25/24 23:00 Temperature 98.5 F Temperature Source Oral Pulse Rate 111 H 111 H Respiratory Rate 15 18 Blood Pressure 145/88 H 150/90 H Blood Pressure Mean 107 110 Pulse Ox 96 98 Oxygen Delivery Method Room Air Room Air Room Air Weight Weight: 205 lb 6.4 oz Body Mass Index (BMI) 38.8 Physical Exam Narrative Physical Examination: General: Awake, alert, oriented x 3 and cooperative, seated upright in the ED bed, notes ongoing L great toe pain. Skin: Normal color, normal turgor, no icterus except notable L great toe serosanguinous blister, draining wound, erythema dorsal region. HEENT: AT/NC, EOMI, PERRLA, MMM, no carotid bruits or JVD noted. Lungs: Diminished, > bases, moderate effort, mild decrease BL bases, no rales, ronchi or wheezing. Heart: tachycardiac with regular rhythm; no gallop, rub audible. Abdomen: Soft, obese, NTTP, ND, normal BS, no appreciatedHSM. Extremities: No cyanosis, no clubbing, notable L dorsal foot and L great toe edema. Neurological: Patient awake, alert, oriented as noted, cognitive function intact; pupils equally reactive to light and accommodation, cranial nerves grossly normal, moving all 4 extremities, no focal deficits, strength moderately globally decreased secondary to acute presentation. Psychiatric: Affect appears fatigued, uncomfortable, no acute evidence of depressive or anxiety feelings but does have underyling history. Results Lab / Micro Data 12/25/24 22:02 12/25/24 22:02 Labs: Laboratory Results - last 24 hr 12/25/24 22:02: WBC 12.3 H, RBC 4.90, Hgb 14.2, Hct 43.9, MCV 89.6, MCH 29.0, MCHC 32.3, RDW Std Deviation 41.3, RDW Coeff of Zeny 12.6, Plt Count 212, MPV 11.3, Immature Gran % (Auto) 0.400, Neut % (Auto) 62.2, Lymph % (Auto) 25.3, [place] % (Auto) 10.2 H, Eos % (Auto) 1.4, Baso % (Auto) 0.5, Absolute Neuts (auto) 7.7, Absolute Lymphs (auto) 3.11, Nucleated RBC % 0, ESR 15, PT 12.9, INR 1.0, APTT 26.7, Sodium 137, Potassium 4.3, Chloride 102, Carbon Dioxide 24.3, Anion Gap 11, BUN 11, Creatinine 0.45 L, Estim Creat Clear Calc 160.90, Est GFR (MDRD) Non-Af 119, BUN/Creatinine Ratio 24.4 H, Glucose 188 H, Lactic Acid 1.8, Calcium 12.0 H, Total Bilirubin 0.67, AST 24, ALT 28, Alkaline Phosphatase 150 H, C-React Prot Ext Range 66.80 H, Total Protein 7.1, Albumin 3.9, Globulin 3.3, Albumin/Globulin Ratio 1.2 12/25/24 22:48: Urine Color Yellow, Urine Clarity Clear, Urine pH 6.0, Ur Specific [place] [employer] 1.015, Urine Protein 15 H, Urine Glucose (UA) Normal, Urine Ketones 5 H, Urine Occult Blood Negative, Urine Nitrite Negative, Urine Bilirubin Negative, Urine Urobilinogen 4 H, Ur Leukocyte Esterase 100 H, Urine RBC 0-5 SEEN, Urine WBC 5-10 SEEN, Ur Squamous Epith Cells 0 SEEN, Urine Bacteria 1+, Urine Mucus RARE Imaging Radiology Impression Foot X-Ray 12/25/24 22:20 IMPRESSION: Soft tissue swelling of the great toe. No radiographic evidence for osteomyelitis. Reading Location: [id number] Assessment & Plan Assessment/Plan (1) Diabetic infection of left foot: PLAN: Plan The patient is a 49 y/o F w/ PMHx: Obesity, IBS, Allergic rhinitis, RLS, obesity, ANA on CPAP, GERD, Hyperparathyroidism with known hypercalcemia, HFrEF s/p AICD/Cardiomyopathy nonischemic/dilated, Diabetes mellitus type II with chronic neuropathy, Anxiety and Depression who presents to the [facility] ED on 11/28/2024 with a right toe wound that has become red and swollen as well as increasingly painful worsened by any palpation of the region or weightbearing with subjective fevers and chills as well as racing heart/palpitations reporting that the wound to the medial aspect of the left great toe worsened more markedly over the last 24 hours with skin breakdown as well as redness. #1. Infected left great toe diabetic foot infection: Will admit to PCU given notable tachycardia, will continue to judiciously hydrate given underlying heart failure as noted, maintain on IV Zosyn as well as clindamycin for MRSA coverage given history with noted swelling allergy listed for vancomycin, ERC and CRP requested, will obtain Wound Cx, will obtain Wound MRSA PCR as able, podiatry and infectious disease consultation requested, plan repeat CBC in AM, NPO status until evaluation in case of OR needs, will continue affected extremity elevation above heart when seated and in bed, monitor erythema outline with VS checks. #2. HFrEF/dilated nonischemic cardiomyopathy: Status post AICD, most recent echocardiogram noted/12/20 with normal LV size, LVEF 50%, mildly hypokinetic mid anterior septal region with noted compared to previous study to have some LV systolic function improvement, will continue aspirin, statin, Coreg, Entresto, ivabradine. Judiciously hydrate if needed. From record patient uses Lasix only as needed. #3. Diabetes mellitus type II with chronic neuropathy: Hold oral home regimen, continue home insulin regimen, ADA diet, accu checks w/ ISS, continue home gabapentin regimen. HgbA1c requested, nutrition consulted given #1. #4. Hypercalcemia with known hyperparathyroidism: Admission calcium 12, will hydrate and plan repeat CMP in addition to obtaining ionized calcium level, from current medication list does not appear to be on any regimen, clarified to be certain. If remains elevated may necessitate further evaluation. Patient does per report follow with endocrinology with most recent visit 09/20/2024. #5. Allergic rhinitis: Will continue patient home montelukast regimen. #6. Hypertension: Continue home regimen including Entresto, diltiazem, Coreg, PRN hydralazine. #7. Hyperlipidemia: Will continue patient statin therapy. #8. Anxiety and depression: Will continue patient home bupropion and duloxetine home regimen, encourage continued outpatient follow-up as previously arranged. #9. GERD: Continue patient PPI #10. ANA: Will continue CPAP nightly. #11. Obesity: Weight loss and lifestyle changes encouraged. #12. DVT prophylaxis: Lovenox. #13. CODE status: Full Code. Charges/Coding Visit Charges Inpatient E&M: 73854 Init Hosp L3
[2024-12-25 23:58] VITALS: BP 150/90; PULSE 112; RESP 19; TEMP 37.4; O2SAT 93
[2024-12-26] VITALS (9 sets, daily range): BP systolic 99–130; BP diastolic 64–90; PULSE 70–110; RESP 12–22; TEMP 36.6–37.4; O2SAT 94–99; BMI 38.7
--- NOTE | 2024-12-26 00:04 | ED.RN ---
Pt does not know home medications
[2024-12-26] MEDS: 0.9% Normal Saline (1000mL) 1,000 ML 100 ML IV (01:07)
[2024-12-26 02:01] LABS: Magnesium 1.4 mg/dL (1.5-2.2)
[2024-12-26] MEDS: Clindamycin 300 MG in Dextrose 5%-Water (50mL Bag) 50 ML 150 MG IV ×2 (05:58→12:34)
[2024-12-26 06:18] LABS: Hematocrit 38.8 % (37-47); Hemoglobin 12.7 g/dL (12.0-15.0); Immature Granulocytes Count 0.070 X10^3/uL (0.0-0.0); Mean Corp Hgb Conc 32.7 g/dL (32-36); Mean Corpuscular Volume 89.4 fL (81-99); Mean Platelet Vol. 11.2 fl (6.2-12.0); Platelet Count 192 K/mm3 (150-450); RBC Distribution Width CV 12.4 % (11.6-14.6); RBC Distribution Width SD 41.0 fl (35.1-43.9); Red Blood Count 4.34 M/mm3 (4.2-5.4); White Blood Count 9.0 K/mm3 (4.4-11.0)
[2024-12-26 06:19] LABS: NRBC Flagged by Analyzer 0 % (0-5)
[2024-12-26] MEDS: Piperacil/Tazobactam 3.375 GM in 0.9% Normal Saline (50mL MB+) 50 ML IV (06:35)
[2024-12-26 07:05] LABS: AST(SGOT) 44 U/L (<=31); Alanine Aminotransfer ALT/SGPT 37 U/L (<=34); Albumin, Serum 3.5 g/dL (3.5-5.0); Alkaline Phosphatase 132 U/L (35-104); Anion Gap 10 (5-15); BUN 11 mg/dL (4-19); BUN/Creat Ratio 31.1 RATIO (10-20); Calcium,Total 10.9 mg/dL (7.6-11.0); Carbon Dioxide 21.8 mmol/L (21.0-32.0); Chloride 105 mmol/L (98-108); Estimated Creatinine Clearance 200.92 ml/min (50-250); Globulin 2.9 g/dL (2.2-4.2); Glucose 185 mg/dL (70-99); Potassium 3.7 mmol/L (3.3-5.1)
[2024-12-26 08:10] LABS: CRP 57.90 mg/L (0.0-3.0)
[2024-12-26] MEDS: 0.9% Saline Lock 10 ML Syringe IV ×3 (08:35→23:27)
[2024-12-26] MEDS: buPROPion (XL) 150 MG TABLET.XL PO (08:48)
[2024-12-26] MEDS: SACUBITRIL/VALSARTAN 24/26 MG TABLET 1 EACH PO ×2 (08:48→21:30)
--- NOTE | 2024-12-26 10:18 | PCM.PN.HOSP ---
Reason for Visit Chief Complaint: L great toe wound/cellulitis/blister, worsening x 24 hours. Subjective Subjective Patient is a 49-year-old lady with multiple comorbidities who presented with infected left great toe Objective Data Objective Data Vital Signs: Vital Signs Temp Pulse Resp BP Pulse Ox O2 Del Method FiO2 97.8 F 83 16 122/84 H 96 Room Air 21 12/26/24 08:33 12/26/24 08:33 12/26/24 08:33 12/26/24 08:33 12/26/24 08:33 12/26/24 08:33 12/26/24 02:10 Oxygen Delivery Method Room Air Weight: 93 kg Body Mass Index (BMI) 38.7 Intake & Output: Intake and Output for Last 24 Hours 12/24/24 12/25/24 12/26/24 23:59 23:59 23:59 Intake Total 100 / 100 693.67 / 693.67 Balance 100 / 100 693.67 / 693.67 Lab / Micro Data 12/26/24 05:15 12/26/24 05:15 Labs: Laboratory Results - last 24 hr 12/25/24 22:02: WBC 12.3 H, RBC 4.90, Hgb 14.2, Hct 43.9, MCV 89.6, MCH 29.0, MCHC 32.3, RDW Std Deviation 41.3, RDW Coeff of Zeny 12.6, Plt Count 212, MPV 11.3, Immature Gran % (Auto) 0.400, Neut % (Auto) 62.2, Lymph % (Auto) 25.3, [place] % (Auto) 10.2 H, Eos % (Auto) 1.4, Baso % (Auto) 0.5, Absolute Neuts (auto) 7.7, Absolute Lymphs (auto) 3.11, Nucleated RBC % 0, ESR 15, PT 12.9, INR 1.0, APTT 26.7, Sodium 137, Potassium 4.3, Chloride 102, Carbon Dioxide 24.3, Anion Gap 11, BUN 11, Creatinine 0.45 L, Estim Creat Clear Calc 160.90, Est GFR (MDRD) Non-Af 119, BUN/Creatinine Ratio 24.4 H, Glucose 188 H, Lactic Acid 1.8, Calcium 12.0 H, Magnesium 1.4 L, Total Bilirubin 0.67, AST 24, ALT 28, Alkaline Phosphatase 150 H, C-React Prot Ext Range 66.80 H, Total Protein 7.1, Albumin 3.9, Globulin 3.3, Albumin/Globulin Ratio 1.2 12/25/24 22:48: Urine Color Yellow, Urine Clarity Clear, Urine pH 6.0, Ur Specific [place] 1.015, Urine Protein 15 H, Urine Glucose (UA) Normal, Urine Ketones 5 H, Urine Occult Blood Negative, Urine Nitrite Negative, Urine Bilirubin Negative, Urine Urobilinogen 4 H, Ur Leukocyte Esterase 100 H, Urine RBC 0-5 SEEN, Urine WBC 5-10 SEEN, Ur Squamous Epith Cells 0 SEEN, Urine Bacteria 1+, Urine Mucus RARE 12/26/24 05:15: WBC 9.0, RBC 4.34, Hgb 12.7, Hct 38.8, MCV 89.4, MCH 29.3, MCHC 32.7, RDW Std Deviation 41.0, RDW Coeff of Zeny 12.4, Plt Count 192, MPV 11.2, Immature Gran % (Auto) 0.800, Neut % (Auto) 51.2, Lymph % (Auto) 35.0, [place] % (Auto) 10.7 H, Eos % (Auto) 1.7, Baso % (Auto) 0.6, Absolute Neuts (auto) 4.6, Absolute Lymphs (auto) 3.14, Nucleated RBC % 0, ESR 23, Sodium 137, Potassium 3.7, Chloride 105, Carbon Dioxide 21.8, Anion Gap 10, BUN 11, Creatinine 0.36 L, Estim Creat Clear Calc 200.92, Est GFR (MDRD) Non-Af 126, BUN/Creatinine Ratio 31.1 H, Glucose 185 H, Hemoglobin A1c 8.8 H, Calcium 10.9, Total Bilirubin 0.74, AST 44 H, ALT 37 H, Alkaline Phosphatase 132 H, C-React Prot Ext Range 57.90 H, Total Protein 6.4, Albumin 3.5, Globulin 2.9, Albumin/Globulin Ratio 1.2 12/26/24 08:04: POC Glucose 139 H Micro: Microbiology 12/25/24 21:52 Tissue Ulcer - Great Toe Wound Culture - Preliminary Streptococcus group B 12/26/24 01:30 Wound - Left Foot Skin and Soft Tissue MRSA/MSSA (PCR - Final Radiography Diagnostic Testing: Radiology Impression Foot X-Ray 12/25/24 22:20 IMPRESSION: Soft tissue swelling of the great toe. No radiographic evidence for osteomyelitis. Reading Location: [facility] Physical Exam Narrative GENERAL: cooperative HEENT: Atraumatic; normocephalic EYES; Anicteric, Normal Conjunctiva NECK; supple, normal thyroid, RESPIRATORY: Diminished to auscultation CARDIOVASCULAR: Regular S1 S2, GI: soft, normoactive bowel sounds, : No Renal angle tenderness; EXTREMITIES: No edema, no clubbing, Ulceration on the medial and dorsal aspect of the left big toe MUSCULOSKELETAL: no muscle wasting NEURO: Awake; no lateralizing signs. SKIN: No Rash PSYCH; Flat affect Assessment & Plan Assessment/Plan (1) Diabetic infection of left foot: PLAN: Plan Patient is a 49-year-old lady with multiple comorbidities who presented with infected left great toe 1. Diabetic foot infection–infected left great toe – Patient started on broad-spectrum antibiotic therapy with Zosyn and clindamycin (has allergies to vancomycin) consult was placed to podiatry and ID on admission. Plain x-rays obtained on admission did not show any radiographic evidence of osteomyelitis 2. Chronic congestive heart failure with preserved ejection fraction – Echo on 12/20/2024 demonstrated normal LV size and LVEF of 50%. Patient remains on guideline directed medical therapy 3. Diabetes mellitus type 2 – With complications including chronic diabetic polyneuropathy as well as diabetic foot infection. Held patient oral agent did continue with her long-acting insulin in addition to Accu-Cheks AC and at bedtime with sliding scale coverage 4. Class II obesity with BMI of 38.7 – Complicating care weight loss advised 5. GERD – Patient is on PPI continue 6. Nonischemic cardiomyopathy – Status post AICD placement 7. Hypercalcemia secondary to hyperparathyroidism: Admission calcium 12, rehydrated with repeat calcium levels ordered. Patient is followed by endocrine as outpatient 8. Allergic rhinitis – Patient is on montelukast will continue 9. Hypertension – Blood pressure controlled, home medications continued with dose adjustment as needed 10. Depression with anxiety – Patient is on duloxetine continue 11. Obstructive sleep apnea – Consistent use of PAP therapy encouraged 12. Hypomagnesemia – Corrected for protocol repeat potassium levels ordered 13. DVT prophylaxis – Subcu Lovenox Time spent in the patient's overall evaluation,decision-making process, review of diagnostic data, adjustment of management, discussion with other providers, nursing nursing and ancillary staff involved in patient's care documentation, 52 Minutes Charges/Coding Visit Charges Inpatient E&M: 08926 Subs Hosp L3
--- NOTE | 2024-12-26 11:48 | CASEMGMT ---
RN CM Assessment Face to Face with patient for initial transition planning/care coordination assessment. RN CM introduced self and role at [facility], pt voices understanding. Pt is A&Ox4 and is resting comfortably in bed and is calm. Care providers, pharmacy, and demographics verified. Admitting dx: Diabetic Foot Infection PCP: Anila Acevedo at the [facility] Specialists: TUNDE, [facility], Tamar (Gen Surgeon) Preferred Pharmacy: [facility] Insurance: [employer] Prescription Benefit: Pt states yes LNOK: [place] (H) Living Arrangements: Pt lives with her and adult son in a single story home with a ramp to enter ADLs/IADLs: Indep, 6-Click score is 23. PT is ordered and pending Transportation: DME: BiPAP at with no additional oxygen. FWW. CBGM with sensors. Pen needles for insulin shots. Functioning backup BGM with sufficient testing supplies including lancets, test strips, and EtOH swabs. HHC/SNF: Reports [facility] HH history. WCC: Pt states that she has been to the [facility] x2 years ago. Pt states that she would be agreeable to returning if warranted. CM to follow ID, podiatry, and wound RN consults. Pt states that her assists with wound care at home. Pt’s goal: Home Plan: Home with pt's family once medically ready. Per recent hospitalist's progress note, XR showed no signs of osteo. Pt denies any further questions or concerns at this time. Follow for wound care needs. Report given to [employer] CM. Brittney Sandoval RN, CM
[2024-12-26] MEDS: Insulin Glargine-YFGN 100 UNIT/ML Pen 20 UNIT SC (12:50)
--- NOTE | 2024-12-26 13:19 | CON.PCM.ID_ITS ---
Assessment & Plan Assessment/Plan (1) Diabetic infection of left foot: PLAN: Podiatry to see. MRSA pcr of wound was neg. Will narrow abx to unasyn. Will follow, thank you HPI Consult Data Date of Consult: 12/26/24 HPI Narrative Reason for Consultation: infected wound HPI Narrative: JAIRO CHAIREZ, is a 49 F with DM neuropathy, AICD in place with CHF, presented 12/25 with 1-2 days progressive L 1st toe swelling, redness, drainage. Minimal pain, some chills. No known inciting event. Reports anaphylaxis with vanc in past. Admitted on clinda and zosyn. Podiatry consulted, feeling a little better today. Full ROS performed and neg except as noted above. [facility] Medical History Endometriosis IBS (irritable bowel syndrome) Osteopenia determined by x-ray Wears glasses Hydradenitis MRSA infection Ambulates with cane Fatty liver Restless legs Back pain Heartburn Non-smoker On home oxygen therapy CPAP (continuous positive airway pressure) dependence Shortness of breath on exertion Leg cramps History of pain when walking Right shoulder pain Right hip pain [place] Hyperparathyroidism Hypercalcemia Abnormal urinalysis Screening for thyroid disorder COVID (~03/2024) Intertriginous dermatitis associated with moisture Syncope (08/07/20) Abscess of maxilla Dentalgia Facial cellulitis ICD (implantable cardioverter-defibrillator) discharge (11/24/20) Chronic systolic (congestive) heart failure Cardiomyopathy, dilated, nonischemic Insomnia Type 2 diabetes mellitus without complication Diverticulitis Essential hypertension ANA (obstructive sleep apnea) Tachycardia Neuropathy Anxiety and depression Migraines Neuropathy IBS (irritable bowel syndrome) Arthritis Obesity Nonhealing surgical wound Open wound of abdominal wall with complication Open wound of neck with complication Abdominal panniculus, symptomatic History of MRSA infection Morbid obesity due to excess calories Hyperlipidemia Home Medications Medication Instructions Recorded Last Taken Type blood-glucose meter #1 ea 11/19/20 Unknown Rx aspirin 81 mg tablet,delayed 81 mg PO DAILY@0800 heart [facility] 02/16/22 Unknown Rx release #90 tabs Handicap Placard #1 ea 04/22/22 Unknown Rx melatonin 10 mg tablet 10 mg PO QHS sleep #30 tabs 04/22/22 Unknown Rx lancets #100 ea 06/21/22 Unknown Rx blood sugar diagnostic (Blood #100 ea 03/09/23 Unknown Rx Glucose Test strips) cholecalciferol (vitamin D3) 50 2,000 unit PO DAILY kilgore pplement #90 08/10/23 Unknown Rx mcg (2,000 unit) capsule caps montelukast 10 mg tablet 10 mg PO DAILY #60 TABLETS 0 08/10/23 Unknown Rx pen needle, diabetic 31 gauge x #100 ea 08/10/23 Unkno wn Rx 5/16" (Sure-Fine Pen [place]) duloxetine 60 mg capsule,delayed See Rx Instructions . 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 #1 ea 04/26/24 Unknown Rx (FreeStyle [place] 3 [place]) ivabradine 5 mg tablet (Corlanor) 5 mg PO BIDWMEAL #18 0 tabs 05/07/24 Unknown Rx sacubitril 24 mg-valsartan 26 mg 1 tab PO BID #60 tabs 05/07/24 Unknown Rx tablet (Entresto) duloxetine 60 mg capsule,delayed 60 mg PO BID #180 cap s 06/05/24 Unknown Rx release (Cymbalta) gabapentin 800 mg tablet 800 mg PO TID #270 tabs 05/26 04/21 Unknown Rx magnesium oxide 250 mg PO DAILY #90 tabs 02/19 Unknown Rx pen needle, diabetic 32 gauge x #100 ea 08/01/24 Unkno wn Rx 532" (BD Ultra-Fine Blaire Pen Needle) carvedilol 25 mg tablet 37.5 mg (1.5 x 25 mg) PO BID 90 08/21/24 Unknown Rx days #270 tabs omeprazole 40 mg capsule,delayed 40 mg PO DAILY GERD # 30 caps 11/05/24 Unknown Rx release blood-glucose sensor (FreeStyle #2 ea 11/08/24 Unknown Rx Magnolia 3 Plus Sensor device) metformin 500 mg tablet 1,000 mg (2 x 500 mg) PO BID WMEAL 11/08/24 Unknown Rx #360 tabs diltiazem HCl 240 mg 240 mg PO DAILY Heart #90 ca ps 12/11/24 Unknown Rx capsule,extended release 24 hr furosemide 40 mg tablet 40 mg PO DAILY PRN edema #30 12/11/24 Unknown Rx Held on 12/26/24. TABLETS Instructions: per doctor potassium chloride 20 mEq 40 meq (2 x 20 mEq) PO BID # 360 12/11/24 Unknown Rx tablet,extended release tabs rosuvastatin 10 mg tablet 10 mg PO DAILY #90 tabs 11/26 09/19 Unknown Rx semaglutide 0.25 mg or 0.5 mg (2 0.25 mg (0.368 mL) kilgore bcut QWEEK #3 12/13/24 12/21/24 Rx mg/3 mL) subcutaneous pen injector mL (Ozempic) bupropion HCl 150 mg 24 hr tablet, 300 mg PO QAM depre ssion 12/26/24 Unknown History extended release dicyclomine 20 mg tablet 40 mg PO DAILY IBS 12/26/24 Unknown History insulin aspart U-100 100 unit/mL 18 unit subcut TID di abetes 12/26/24 Unknown History (3 mL) subcutaneous pen (Novolog FlexPen U-100 Insulin aspart) insulin glargine 100 unit/mL (3 22 unit subcut .HS kristine betes 12/26/24 Unknown History mL) subcutaneous pen (Lantus Solostar U-100 Insulin) Allergy/AdvReac Type Severity Reaction Status Date / Time doxycycline Allergy Upset Verified 12/25/24 20:31 Stomach pregabalin (From Lyrica) Allergy Other Verified 12/25/24 20:31 sulfamethoxazole (From Allergy Rash Verified 12/25/24 20:31 Bactrim) tramadol HCl (From Ultram) Allergy Swelling Verified 12/25/24 20:31 trimethoprim (From Bactrim) Allergy Rash Verified 12/25/24 20:31 vancomycin Allergy Swelling Verified 12/25/24 20:31 Family History Mother Arthritis Breast cancer Father Arthritis Depression Gout Grandmother Arthritis CVA (cerebral vascular accident) Diabetes Heart disease Hypertension Thyroid disorder Cancer thyroid Surgical History H/O laparoscopy S/P skin and subcutaneous tissue surgery S/P pilonidal cyst excision History of dental surgery History of implantable cardiac defibrillator (ICD) (11/15/19) History of left heart catheterization (06/01/19) History of neck surgery navel removal History of cholecystectomy History of hysterectomy Social History adopted: No household members: spouse and children number of children: 1 current occupational status: unemployed pets and animals: Yes pets and animals: cat(s) and dog(s) sexually active: No Smoking Status: Never smoker alcohol intake: never substance use type: marijuana and other details: gummies diet: diabetic and gluten free caffeine: Yes (2) Type: carbonated beverages what type of physical activity do you participate in: none do you feel safe at home: Yes Physical Exam Const alert, oriented x3 and no apparent distress HEENT normocephalic and head/scalp atraumatic Eyes PERRL and EOMs intact bilaterally Neck supple and No nodes Resp normal air movement and clear to auscultation bilaterally Cardio regular rate and regular rhythm GI soft to palpation, non-tender and non-distended Extremity General Extremity: edema Skin Skin Narrative: L foot wrapped Neuro CN's II-XII intact bilaterally Lab / Micro Data Attestation: I reviewed the patient's lab results. 12/26/24 05:15 12/26/24 05:15 Labs: Laboratory Results - last 24 hr 12/25/24 22:02: WBC 12.3 H, RBC 4.90, Hgb 14.2, Hct 43.9, MCV 89.6, MCH 29.0, MCHC 32.3, RDW Std Deviation 41.3, RDW Coeff of Zeny 12.6, Plt Count 212, MPV 11.3, Immature Gran % (Auto) 0.400, Neut % (Auto) 62.2, Lymph % (Auto) 25.3, M tio % (Auto) 10.2 H, Eos % (Auto) 1.4, Baso % (Auto) 0.5, Absolute Neuts (auto) 7.7, Absolute Lymphs (auto) 3.11, Nucleated RBC % 0, ESR 15, PT 12.9, INR 1.0, APTT 26.7, Sodium 137, Potassium 4.3, Chloride 102, Carbon Dioxide 24.3, Anion Gap 11, BUN 11, Creatinine 0.45 L, Estim Creat Clear Calc 160.90, Est GFR (MDRD) Non-Af 119, BUN/Creatinine Ratio 24.4 H, Glucose 188 H, Lactic Acid 1.8, Calcium 12.0 H, Magnesium 1.4 L, Total Bilirubin 0.67, AST 24, ALT 28, Alkaline Phosphatase 150 H, C-React Prot Ext Range 66.80 H, Total Protein 7.1, Albumin 3.9, Globulin 3.3, Albumin/Globulin Ratio 1.2 12/25/24 22:48: Urine Color Yellow, Urine Clarity Clear, Urine pH 6.0, Ur Specific [place] 1.015, Urine Protein 15 H, Urine Glucose (UA) Normal, Urine Ketones 5 H, Urine Occult Blood Negative, Urine Nitrite Negative, Urine Bilirubin Negative, Urine Urobilinogen 4 H, Ur Leukocyte Esterase 100 H, Urine RBC 0-5 SEEN, Urine WBC 5-10 SEEN, Ur Squamous Epith Cells 0 SEEN, Urine Bacteria 1+, Urine Mucus RARE 12/26/24 05:15: WBC 9.0, RBC 4.34, Hgb 12.7, Hct 38.8, MCV 89.4, MCH 29.3, MCHC 32.7, RDW Std Deviation 41.0, RDW Coeff of Zeny 12.4, Plt Count 192, MPV 11.2, Immature Gran % (Auto) 0.800, Neut % (Auto) 51.2, Lymph % (Auto) 35.0, [place] % (Auto) 10.7 H, Eos % (Auto) 1.7, Baso % (Auto) 0.6, Absolute Neuts (auto) 4.6, Absolute Lymphs (auto) 3.14, Nucleated RBC % 0, ESR 23, Sodium 137, Potassium 3.7, Chloride 105, Carbon Dioxide 21.8, Anion Gap 10, BUN 11, Creatinine 0.36 L, Estim Creat Clear Calc 200.92, Est GFR (MDRD) Non-Af 126, BUN/Creatinine Ratio 31.1 H, Glucose 185 H, Hemoglobin A1c 8.8 H, Calcium 10.9, Total Bilirubin 0.74, AST 44 H, ALT 37 H, Alkaline Phosphatase 132 H, C-React Prot Ext Range 57.90 H, Total Protein 6.4, Albumin 3.5, Globulin 2.9, Albumin/Globulin Ratio 1.2 12/26/24 08:04: POC Glucose 139 H 12/26/24 12:31: POC Glucose 160 H Micro: Microbiology 12/25/24 21:52 Tissue Ulcer - Great Toe Wound Culture - Preliminary Streptococcus group B 12/26/24 01:30 Wound - Left Foot Skin and Soft Tissue MRSA/MSSA (PCR - Final Imaging Radiology Impression Foot X-Ray 12/25/24 22:20 IMPRESSION: Soft tissue swelling of the great toe. No radiographic evidence for osteomyelitis. Reading Location: [id number]
--- NOTE | 2024-12-26 13:59 | WOUNDNOTE ---
wound photo: left great toe
--- NOTE | 2024-12-26 14:14 | WOUNDNOTE ---
wound photo: left great toe
--- NOTE | 2024-12-26 14:14 | WOUNDNOTE ---
wound photo: left great toe
[2024-12-26] MEDS: FLU VACCINE 2025-26(6MOS UP) 45 MCG/0.5 ML SYRINGE IM (16:42)
[2024-12-26] MEDS: CLARIFY ORDER NOTE (16:56)
[2024-12-26] MEDS: Ampicillin/Sulbactam 3 GM in 0.9% Normal Saline (100mL MB+) 100 ML IV ×2 (17:35→23:23)
[2024-12-26] MEDS: Potassium Chloride Oral Tablet 20 MEQ 40 MEQ PO (17:36)
--- NOTE | 2024-12-26 20:12 | CON.PCM_ITS ---
Assessment & Plan Assessment/Plan (1) Cellulitis and abscess of foot: PLAN: Continue IV antibiotics I honestly do not think that surgery is necessary at this point I believe that superficial infection would be worrisome if the redness does not clear in 2 days. (2) Uncontrolled diabetes mellitus: QUALIFIERS: Diabetes mellitus type: type 2 Glycemic state: with hyperglycemia Qualified Code(s): E11.65 - Type 2 diabetes mellitus with hyperglycemia PLAN: Needs to follow-up in the office I gave her a card. (3) Diabetic infection of left foot: (4) Neuropathy due to type 2 diabetes mellitus: PLAN: Plan Wound care instructed with Adaptic, Betadine or alginate as needed, nonstick dressing, local wound care to be changed daily okay for partial weightbearing due to tolerance surgical shoe follow-up couple days. HPI Consult Data Date of Consult: 12/26/24 HPI Narrative Reason for Consultation: Cellulitis left great toe diabetic foot infection poorly controlled HPI Narrative: JAIRO CHAIREZ, is a 49 F who presents [ ] patient seen today at the bedside with her family member in which they had stated that her toe became red swollen but not just her toe but the entire foot has become severely painful in which she feels like she is walking on bones. This is recently occurred only 2 days ago. She had a callus on the plantar medial aspect of the left great toe in which she usually has tried to shave it herself. She has a same callus on the right foot does not follow-up with the doctor on a regular basis nor someone for her footcare. She at this point has been having problems with her redness of the toe as well as pain to the top of her foot she currently has been feeling very uncomfortable she was cold when she presented to the hospital has been on antibiotics now for 24 hours and does feel somewhat better. Pain is still significant. Denies nausea vomiting chills or fever. [facility] Medical History (Updated 12/26/24 @ 20:[address] Sg Villeda MD) Neuropathy due to type 2 diabetes mellitus Diabetic infection of left foot Endometriosis IBS (irritable bowel syndrome) Osteopenia determined by x-ray Wears glasses Hydradenitis MRSA infection Ambulates with cane Fatty liver Restless legs Back pain Heartburn Non-smoker On home oxygen therapy CPAP (continuous positive airway pressure) dependence Shortness of breath on exertion Leg cramps History of pain when walking Right shoulder pain Right hip pain [place] Hyperparathyroidism Hypercalcemia Abnormal urinalysis Screening for thyroid disorder COVID (~03/2024) Intertriginous dermatitis associated with moisture Syncope (08/07/20) Abscess of maxilla Dentalgia Facial cellulitis ICD (implantable cardioverter-defibrillator) discharge (11/24/20) Chronic systolic (congestive) heart failure Cardiomyopathy, dilated, nonischemic Insomnia Type 2 diabetes mellitus without complication Diverticulitis Essential hypertension ANA (obstructive sleep apnea) Tachycardia Neuropathy Anxiety and depression Migraines Neuropathy IBS (irritable bowel syndrome) Arthritis Obesity Nonhealing surgical wound Open wound of abdominal wall with complication Open wound of neck with complication Abdominal panniculus, symptomatic History of MRSA infection Morbid obesity due to excess calories Hyperlipidemia Home Medications Medication Instructions Recorded Last Taken Type blood-glucose meter #1 ea 11/19/20 Unknown Rx aspirin 81 mg tablet,delayed 81 mg PO DAILY@0800 heart [facility] 02/16/22 Unknown Rx release #90 tabs Handicap Placard #1 ea 04/22/22 Unknown Rx melatonin 10 mg tablet 10 mg PO QHS sleep #30 tabs 04/22/22 Unknown Rx lancets #100 ea 06/21/22 Unknown Rx blood sugar diagnostic (Blood #100 ea 03/09/23 Unknown Rx Glucose Test strips) cholecalciferol (vitamin D3) 50 2,000 unit PO DAILY kilgore pplement #90 08/10/23 Unknown Rx mcg (2,000 unit) capsule caps montelukast 10 mg tablet 10 mg PO DAILY #60 TABLETS 0 08/10/23 Unknown Rx pen needle, diabetic 31 gauge x #100 ea 08/10/23 Unkno wn Rx 08/10" (Sure-Fine Pen [place]) duloxetine 60 mg capsule,delayed See Rx Instructions . 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,dianetic counselor,cont #1 ea 04/26/24 Unknown Rx (FreeStyle [place] 3 [place]) ivabradine 5 mg tablet (Corlanor) 5 mg PO BIDWMEAL #18 0 tabs 05/07/24 Unknown Rx sacubitril 24 mg-valsartan 26 mg 1 tab PO BID #60 tabs 05/07/24 Unknown Rx tablet (Entresto) duloxetine 60 mg capsule,delayed 60 mg PO BID #180 cap s 06/05/24 Unknown Rx release (Cymbalta) gabapentin 800 mg tablet 800 mg PO TID #270 tabs 05/26 04/21 Unknown Rx magnesium oxide 250 mg PO DAILY #90 tabs 02/19 Unknown Rx pen needle, diabetic 32 gauge x #100 ea 08/01/24 Unkno wn Rx " (BD Ultra-Fine Blaire Pen Needle) carvedilol 25 mg tablet 37.5 mg (1.5 x 25 mg) PO BID 90 08/21/24 Unknown Rx days #270 tabs omeprazole 40 mg capsule,delayed 40 mg PO DAILY GERD # 30 caps 11/05/24 Unknown Rx release blood-glucose sensor (FreeStyle #2 ea 11/08/24 Unknown Rx Magnolia 3 Plus Sensor device) metformin 500 mg tablet 1,000 mg (2 x 500 mg) PO BID WMEAL 11/08/24 Unknown Rx #360 tabs diltiazem HCl 240 mg 240 mg PO DAILY Heart #90 ca ps 12/11/24 Unknown Rx capsule,extended release 24 hr furosemide 40 mg tablet 40 mg PO DAILY PRN edema #30 12/11/24 Unknown Rx Held on 12/26/24. TABLETS Instructions: per doctor potassium chloride 20 mEq 40 meq (2 x 20 mEq) PO BID # 360 12/11/24 Unknown Rx tablet,extended release tabs rosuvastatin 10 mg tablet 10 mg PO DAILY #90 tabs 11/26 09/19 Unknown Rx semaglutide 0.25 mg or 0.5 mg (2 0.25 mg (0.368 mL) kilgore bcut QWEEK #3 12/13/24 12/21/24 Rx mg/3 mL) subcutaneous pen injector mL (Ozempic) bupropion HCl 150 mg 24 hr tablet, 300 mg PO QAM depre ssion 12/26/24 Unknown History extended release dicyclomine 20 mg tablet 40 mg PO DAILY IBS 12/26/24 Unknown History insulin aspart U-100 100 unit/mL 18 unit subcut TID di abetes 12/26/24 Unknown History (3 mL) subcutaneous pen (Novolog FlexPen U-100 Insulin aspart) insulin glargine 100 unit/mL (3 22 unit subcut .HS kristine rah 12/26/24 Unknown History mL) subcutaneous pen (Lantus Solostar U-100 Insulin) Allergy/AdvReac Type Severity Reaction Status Date / Time doxycycline Allergy Upset Verified 12/25/24 20:31 Stomach pregabalin (From Lyrica) Allergy Other Verified 12/25/24 20:31 sulfamethoxazole (From Allergy Rash Verified 12/25/24 20:31 Bactrim) tramadol HCl (From Ultram) Allergy Swelling Verified 12/25/24 20:31 trimethoprim (From Bactrim) Allergy Rash Verified 12/25/24 20:31 vancomycin Allergy Swelling Verified 12/25/24 20:31 Family History Mother Arthritis Breast cancer Father Arthritis Depression Gout Grandmother Arthritis CVA (cerebral vascular accident) Diabetes Heart disease Hypertension Thyroid disorder Cancer thyroid Surgical History H/O laparoscopy S/P skin and subcutaneous tissue surgery S/P pilonidal cyst excision History of dental surgery History of implantable cardiac defibrillator (ICD) (11/15/19) History of left heart catheterization (06/01/19) History of neck surgery navel removal History of cholecystectomy History of hysterectomy Social History adopted: No household members: spouse and children number of children: 1 current occupational status: unemployed pets and animals: Yes pets and animals: cat(s) and dog(s) sexually active: No Smoking Status: Never smoker alcohol intake: never substance use type: marijuana and other details: gummies diet: diabetic and gluten free caffeine: Yes (2) Type: carbonated beverages what type of physical activity do you participate in: none do you feel safe at home: Yes ROS Eyes Eyes: Reports systems reviewed and no addt'l complaints, except as documented ENT HEENT: Reports systems reviewed and no addt'l complaints, except as documented Cardiovascular Cardiovascular: Reports systems reviewed and no addt'l complaints, except as documented Respiratory/Chest Respiratory/Chest: Reports systems reviewed and no addt'l complaints, except as documented Gastrointestinal Gastrointestinal: Reports systems reviewed and no addt'l complaints, except as documented Physical Exam Const alert and oriented x3 General Appearance: cooperative HEENT normocephalic and head/scalp atraumatic Eyes PERRL and EOMs intact bilaterally Neck full ROM Chest inspection of chest normal Cardio regular rate and regular rhythm GI normal to inspection, nondistended, normoactive bowel sounds Extremity Extremity Narrative: On exam the patient does have palpable pedal pulses DP and PT bilateral. She does have significant edema on the left foot versus the right foot the entire left foot does look much more swollen than the right foot. She has an ulceration now a previously filled blister or bulla on the top of the foot that extends around to the joint at the interphalangeal joint left great toe. She still has distal redness with no blanching erythema showing that cellulitis still remains in the distal tuft of the toe it might be worrisome that she does have infection deeper but her x-rays have been negative thus far. Currently I reviewed the x-rays does reveal no sign of osteomyelitis it does have soft tissue swelling and the wound is no located on the great toe at the interphalangeal joint she really has no other deformity noted. Ulcer is note located on the plantar medial IPJ of the left great toe with large bulla and what appeared to be an abscess infection that formed dorsally towards the interphalangeal joint on the top of the left great toe cellulitis proximately has started to resolve and seems improved. Lab / Micro Data Lab results narrative: Appears that her white count is trending downward from 12.5-9 A1c is 8.8 which does show that she is poorly controlled there is glucose that is still elevated at times CRP is 57.9 sed rate was 23 12/26/24 05:15 12/26/24 05:15 Labs: Laboratory Results - last 24 hr 12/25/24 22:02: WBC 12.3 H, RBC 4.90, Hgb 14.2, Hct 43.9, MCV 89.6, MCH 29.0, MCHC 32.3, RDW Std Deviation 41.3, RDW Coeff of Zeny 12.6, Plt Count 212, MPV 11.3, Immature Gran % (Auto) 0.400, Neut % (Auto) 62.2, Lymph % (Auto) 25.3, M tio % (Auto) 10.2 H, Eos % (Auto) 1.4, Baso % (Auto) 0.5, Absolute Neuts (auto) 7.7, Absolute Lymphs (auto) 3.11, Nucleated RBC % 0, ESR 15, PT 12.9, INR 1.0, APTT 26.7, Sodium 137, Potassium 4.3, Chloride 102, Carbon Dioxide 24.3, Anion Gap 11, BUN 11, Creatinine 0.45 L, Estim Creat Clear Calc 160.90, Est GFR (MDRD) Non-Af 119, BUN/Creatinine Ratio 24.4 H, Glucose 188 H, Lactic Acid 1.8, Calcium 12.0 H, Magnesium 1.4 L, Total Bilirubin 0.67, AST 24, ALT 28, Alkaline Phosphatase 150 H, C-React Prot Ext Range 66.80 H, Total Protein 7.1, Albumin 3.9, Globulin 3.3, Albumin/Globulin Ratio 1.2 12/25/24 22:48: Urine Color Yellow, Urine Clarity Clear, Urine pH 6.0, Ur Specific [place] 1.015, Urine Protein 15 H, Urine Glucose (UA) Normal, Urine Ketones 5 H, Urine Occult Blood Negative, Urine Nitrite Negative, Urine Bilirubin Negative, Urine Urobilinogen 4 H, Ur Leukocyte Esterase 100 H, Urine RBC 0-5 SEEN, Urine WBC 5-10 SEEN, Ur Squamous Epith Cells 0 SEEN, Urine Bacteria 1+, Urine Mucus RARE 12/26/24 05:15: WBC 9.0, RBC 4.34, Hgb 12.7, Hct 38.8, MCV 89.4, MCH 29.3, MCHC 32.7, RDW Std Deviation 41.0, RDW Coeff of Zeny 12.4, Plt Count 192, MPV 11.2, Immature Gran % (Auto) 0.800, Neut % (Auto) 51.2, Lymph % (Auto) 35.0, [place] % (Auto) 10.7 H, Eos % (Auto) 1.7, Baso % (Auto) 0.6, Absolute Neuts (auto) 4.6, Absolute Lymphs (auto) 3.14, Nucleated RBC % 0, ESR 23, Sodium 137, Potassium 3.7, Chloride 105, Carbon Dioxide 21.8, Anion Gap 10, BUN 11, Creatinine 0.36 L, Estim Creat Clear Calc 200.92, Est GFR (MDRD) Non-Af 126, BUN/Creatinine Ratio 31.1 H, Glucose 185 H, Hemoglobin A1c 8.8 H, Calcium 10.9, Total Bilirubin 0.74, AST 44 H, ALT 37 H, Alkaline Phosphatase 132 H, C-React Prot Ext Range 57.90 H, Total Protein 6.4, Albumin 3.5, Globulin 2.9, Albumin/Globulin Ratio 1.2 12/26/24 08:04: POC Glucose 139 H 12/26/24 12:31: POC Glucose 160 H 12/26/24 16:55: POC Glucose 276 H Micro: Microbiology 12/25/24 21:52 Tissue Ulcer - Great Toe Wound Culture - Preliminary Streptococcus group B 12/26/24 01:30 Wound - Left Foot Skin and Soft Tissue MRSA/MSSA (PCR - Final Imaging Radiology Impression Foot X-Ray 12/25/24 22:20 IMPRESSION: Soft tissue swelling of the great toe. No radiographic evidence for osteomyelitis.
[2024-12-26] MEDS: MELATONIN 10 MG TABLET PO (21:28)
[2024-12-27] VITALS (9 sets, daily range): BP systolic 101–126; BP diastolic 44–88; PULSE 63–73; RESP 16–18; TEMP 36.2–36.7; O2SAT 95–100; BMI 39.1
[2024-12-27 05:55] LABS: Hematocrit 38.9 % (37-47); Hemoglobin 12.4 g/dL (12.0-15.0); Immature Granulocytes Count 0.010 X10^3/uL (0.0-0.0); Mean Corp Hgb Conc 31.9 g/dL (32-36); Mean Corpuscular Volume 91.3 fL (81-99); Mean Platelet Vol. 11.2 fl (6.2-12.0); NRBC Flagged by Analyzer 0 % (0-5); Platelet Count 157 K/mm3 (150-450); RBC Distribution Width CV 12.7 % (11.6-14.6); RBC Distribution Width SD 41.5 fl (35.1-43.9); Red Blood Count 4.26 M/mm3 (4.2-5.4); White Blood Count 5.3 K/mm3 (4.4-11.0)
[2024-12-27 06:11] LABS: Anion Gap 9 (5-15); BUN 12 mg/dL (4-19); BUN/Creat Ratio 33.3 RATIO (10-20); Calcium,Total 10.8 mg/dL (7.6-11.0); Carbon Dioxide 21.2 mmol/L (21.0-32.0); Chloride 106 mmol/L (98-108); Estimated Creatinine Clearance 207.79 ml/min (50-250); Glucose 161 mg/dL (70-99); Magnesium 1.7 mg/dL (1.5-2.2); Potassium 4.4 mmol/L (3.3-5.1)
[2024-12-27] MEDS: Ampicillin/Sulbactam 3 GM in 0.9% Normal Saline (100mL MB+) 100 ML IV ×3 (06:16→17:30)
[2024-12-27] MEDS: Potassium Chloride Oral Tablet 20 MEQ 40 MEQ PO ×2 (08:57→17:25)
[2024-12-27] MEDS: buPROPion (XL) 150 MG TABLET.XL PO (08:57)
[2024-12-27] MEDS: SACUBITRIL/VALSARTAN 24/26 MG TABLET 1 EACH PO ×2 (08:57→22:00)
[2024-12-27] MEDS: Aspirin E.C. 81 MG Tablet PO (08:58)
[2024-12-27] MEDS: Insulin Glargine-YFGN 100 UNIT/ML Pen 20 UNIT SC (08:58)
[2024-12-27] MEDS: IVABRADINE HCL 5 MG TABLET PO ×2 (09:02→17:25)
--- NOTE | 2024-12-27 10:46 | PCM.PN.ID ---
Physical Exam Narrative Toe still painful, but slightly improved. No fever, no n/v/d. Const alert and no apparent distress General Appearance: cooperative Resp normal air movement and clear to auscultation bilaterally Cardio regular rate and regular rhythm GI soft to palpation, non-tender and non-distended Extremity General Extremity: edema Skin Skin Narrative: foot wrapped, reviewed photos ID ID: Route of nutrition/ use of supplements: [] Nutritional Intake: [] IV Site: [] Novak Catheter: [] Assessment & Plan Assessment/Plan (1) Diabetic infection of left foot: PLAN: Podiatry following. MRSA pcr of wound was neg. Wound cx showing strep. Continue unasyn. Will follow
[2024-12-27] MEDS: 0.9% Saline Lock 10 ML Syringe IV ×2 (11:56→17:28)
--- NOTE | 2024-12-27 12:10 | PCM.PN.HOSP ---
Reason for Visit Chief Complaint: L great toe wound/cellulitis/blister, worsening x 24 hours. Subjective Subjective Patient wound cultures came back positive for strep MRSA PCR was negative. Patient antibiotic therapy adjusted with initiation of Unasyn. Patient was also seen in consultation by both ID and podiatry notes and recommendations reviewed Objective Data Objective Data Vital Signs: Vital Signs Temp Pulse Resp BP Pulse Ox O2 Del Method FiO2 97.1 F L 70 18 109/44 L 100 Room Air 21 12/27/24 08:41 12/27/24 08:41 12/27/24 08:41 12/27/24 08:41 12/27/24 10:00 12/27/24 10:00 12/27/24 02:30 Oxygen Delivery Method Room Air Weight: 93.9 kg Body Mass Index (BMI) 39.1 Intake & Output: Intake and Output for Last 24 Hours 12/25/24 12/26/24 12/27/24 23:59 23:59 23:59 Intake Total 100 / 100 1895.67 / 1895.67 200 / 200 Balance 100 / 100 1895.67 / 1895.67 200 / 200 Lab / Micro Data 12/27/24 05:18 12/27/24 05:18 Labs: Laboratory Results - last 24 hr 12/26/24 12:31: POC Glucose 160 H 12/26/24 16:55: POC Glucose 276 H 12/26/24 21:33: POC Glucose 162 H 12/27/24 05:18: WBC 5.3, RBC 4.26, Hgb 12.4, Hct 38.9, MCV 91.3, MCH 29.1, MCHC 31.9 L, RDW Std Deviation 41.5, RDW Coeff of Zeny 12.7, Plt Count 157, MPV 11.2, Immature Gran % (Auto) 0.200, Neut % (Auto) 52.2, Lymph % (Auto) 33.1, [place] % (Auto) 11.4 H, Eos % (Auto) 2.5, Baso % (Auto) 0.6, Absolute Neuts (auto) 2.8, Absolute Lymphs (auto) 1.74, Nucleated RBC % 0, Sodium 137, Potassium 4.4, Chloride 106, Carbon Dioxide 21.2, Anion Gap 9, BUN 12, Creatinine 0.35 L, Estim Creat Clear Calc 207.79, Est GFR (MDRD) Non-Af 127, BUN/Creatinine Ratio 33.3 H, Glucose 161 H, Calcium 10.8, Phosphorus 2.4 L, Magnesium 1.7 12/27/24 11:29: POC Glucose 171 H Micro: Microbiology 12/25/24 21:52 Tissue Ulcer - Great Toe Gram Stain - Final 12/25/24 21:52 Tissue Ulcer - Great Toe Wound Culture - Preliminary Streptococcus group B 12/26/24 10:55 Wound Drainage - Toe Gram Stain - Final 12/26/24 10:55 Wound Drainage - Toe Wound Culture - Preliminary Beta streptococcus 12/26/24 01:30 Wound - Left Foot Skin and Soft Tissue MRSA/MSSA (PCR - Final Physical Exam Narrative GENERAL: cooperative HEENT: Atraumatic; normocephalic EYES; Anicteric, Normal Conjunctiva NECK; supple, normal thyroid, RESPIRATORY: Diminished to auscultation CARDIOVASCULAR: Regular S1 S2, GI: soft, normoactive bowel sounds, : No Renal angle tenderness; EXTREMITIES: No edema, no clubbing, left big toe wrapped MUSCULOSKELETAL: no muscle wasting NEURO: Awake; no lateralizing signs. SKIN: No Rash PSYCH; Flat affect Assessment & Plan Assessment/Plan (1) Diabetic infection of left foot: PLAN: Plan Patient is a 49-year-old lady with multiple comorbidities who presented with infected left great toe 1. Diabetic foot infection–infected left great toe – Patient started on broad-spectrum antibiotic therapy with Zosyn and clindamycin (has allergies to vancomycin) consult was placed to podiatry and ID on admission. Plain x-rays obtained on admission did not show any radiographic evidence of osteomyelitis – 12/27/2024; patient wound cultures came back positive for strep MRSA PCR was negative. Patient antibiotic therapy adjusted with initiation of Unasyn. Patient was also seen in consultation by both ID and podiatry notes and recommendations reviewed 2. Chronic congestive heart failure with preserved ejection fraction – Echo on 12/20/2024 demonstrated normal LV size and LVEF of 50%. Patient remains on guideline directed medical therapy 3. Diabetes mellitus type 2 – With complications including chronic diabetic polyneuropathy as well as diabetic foot infection. Held patient oral agent did continue with her long-acting insulin in addition to Accu-Cheks AC and at bedtime with sliding scale coverage 4. Class II obesity with BMI of 38.7 – Complicating care weight loss advised 5. GERD – Patient is on PPI continue 6. Nonischemic cardiomyopathy – Status post AICD placement 7. Hypercalcemia secondary to hyperparathyroidism: Admission calcium 12, rehydrated with repeat calcium levels ordered. Patient is followed by endocrine as outpatient 8. Allergic rhinitis – Patient is on montelukast will continue 9. Hypertension – Blood pressure controlled, home medications continued with dose adjustment as needed 10. Depression with anxiety – Patient is on duloxetine continue 11. Obstructive sleep apnea – Consistent use of PAP therapy encouraged 12. Hypomagnesemia – Corrected for protocol repeat potassium levels ordered 13. DVT prophylaxis – Subcu Lovenox Time spent in the patient's overall evaluation,decision-making process, review of diagnostic data, adjustment of management, discussion with other providers, nursing nursing and ancillary staff involved in patient's care documentation, 40 minutes Charges/Coding Visit Charges Inpatient E&M: 66221 [facility] Hosp L2
[2024-12-27] MEDS: MELATONIN 10 MG TABLET PO (22:00)
[2024-12-28] MEDS: 0.9% Saline Lock 10 ML Syringe IV (00:02)
[2024-12-28] MEDS: Ampicillin/Sulbactam 3 GM in 0.9% Normal Saline (100mL MB+) 100 ML IV ×3 (00:02→12:12)
--- NOTE | 2024-12-28 04:12 | NURSING ---
handoff communication given to TASNEEM Armando at this time.
[2024-12-28 05:47] VITALS: BP 111/70; PULSE 71; RESP 18; TEMP 36.5; O2SAT 95
[2024-12-28 05:49] VITALS: BMI 39.4
[2024-12-28 05:59] LABS: Hematocrit 39.3 % (37-47); Hemoglobin 12.9 g/dL (12.0-15.0); Immature Granulocytes Count 0.020 X10^3/uL (0.0-0.0); Mean Corp Hgb Conc 32.8 g/dL (32-36); Mean Corpuscular Volume 88.1 fL (81-99); Mean Platelet Vol. 10.8 fl (6.2-12.0); NRBC Flagged by Analyzer 0 % (0-5); Platelet Count 218 K/mm3 (150-450); RBC Distribution Width CV 12.4 % (11.6-14.6); RBC Distribution Width SD 40.0 fl (35.1-43.9); Red Blood Count 4.46 M/mm3 (4.2-5.4); White Blood Count 5.2 K/mm3 (4.4-11.0)
[2024-12-28 06:24] LABS: Anion Gap 9 (5-15); BUN 13 mg/dL (4-19); BUN/Creat Ratio 32.5 RATIO (10-20); Calcium,Total 11.8 mg/dL (7.6-11.0); Carbon Dioxide 24.5 mmol/L (21.0-32.0); Chloride 105 mmol/L (98-108); Estimated Creatinine Clearance 178.13 ml/min (50-250); Glucose 179 mg/dL (70-99); Potassium 4.3 mmol/L (3.3-5.1)
--- NOTE | 2024-12-28 07:29 | PN.HOSP_ITS ---
Reason for Visit Chief Complaint: L great toe wound/cellulitis/blister, worsening x 24 hours. Subjective Subjective Patient seen, wound cultures came back positive for Streptococcus agalactiae. Plan is for patient to be assessed for possible discharge with follow-up with podiatry as outpatient after patient has been seen by ID this morning Objective Data Objective Data Vital Signs: Vital Signs Temp Pulse Resp BP Pulse Ox O2 Del Method FiO2 97.7 F L 71 18 111/70 95 Room Air 21 12/28/24 05:47 12/28/24 05:47 12/28/24 05:47 12/28/24 05:47 12/28/24 05:47 12/28/24 05:47 12/27/24 02:30 Oxygen Delivery Method Room Air Weight: 94.6 kg Body Mass Index (BMI) 39.4 Intake & Output: Intake and Output for Last 24 Hours 12/26/24 12/27/24 12/28/24 23:59 23:59 23:59 Intake Total 1895.67 / 1895.67 1040 / 1040 200 / 200 Balance 1895.67 / 1895.67 1040 / 1040 200 / 200 Lab / Micro Data 12/28/24 05:13 12/28/24 05:13 Labs: Laboratory Results - last 24 hr 12/27/24 11:29: POC Glucose 171 H 12/27/24 16:23: POC Glucose 157 H 12/27/24 21:57: POC Glucose 221 H 12/28/24 05:13: WBC 5.2, RBC 4.46, Hgb 12.9, Hct 39.3, MCV 88.1, MCH 28.9, MCHC 32.8, RDW Std Deviation 40.0, RDW Coeff of Zeny 12.4, Plt Count 218, MPV 10.8, Immature Gran % (Auto) 0.400, Neut % (Auto) 44.1 L, Lymph % (Auto) 42.5 H, [place] % (Auto) 9.7, Eos % (Auto) 2.7, Baso % (Auto) 0.6, Absolute Neuts (auto) 2.3, Absolute Lymphs (auto) 2.19, Nucleated RBC % 0, Sodium 138, Potassium 4.3, Chloride 105, Carbon Dioxide 24.5, Anion Gap 9, BUN 13, Creatinine 0.41 L, Estim Creat Clear Calc 178.13, Est GFR (MDRD) Non-Af 122, BUN/Creatinine Ratio 32.5 H, Glucose 179 H, Calcium 11.8 H Micro: Microbiology 12/25/24 21:52 Tissue Ulcer - Great Toe Gram Stain - Final 12/25/24 21:52 Tissue Ulcer - Great Toe Wound Culture - Preliminary Streptococcus group B 12/26/24 10:55 Wound Drainage - Toe Gram Stain - Final 12/26/24 10:55 Wound Drainage - Toe Wound Culture - Preliminary Beta streptococcus 12/26/24 01:30 Wound - Left Foot Skin and Soft Tissue MRSA/MSSA (PCR - Final Physical Exam Narrative GENERAL: cooperative HEENT: Atraumatic; normocephalic EYES; Anicteric, Normal Conjunctiva NECK; supple, normal thyroid, RESPIRATORY: Diminished to auscultation CARDIOVASCULAR: Regular S1 S2, GI: soft, normoactive bowel sounds, : No Renal angle tenderness; EXTREMITIES: No edema, no clubbing, left big toe wrapped MUSCULOSKELETAL: no muscle wasting NEURO: Awake; no lateralizing signs. SKIN: No Rash PSYCH; Flat affect Assessment & Plan Assessment/Plan (1) Diabetic infection of left foot: PLAN: Plan Patient is a 49-year-old lady with multiple comorbidities who presented with infected left great toe 1. Diabetic foot infection–infected left great toe – Patient started on broad-spectrum antibiotic therapy with Zosyn and clindamycin (has allergies to vancomycin) consult was placed to podiatry and ID on admission. Plain x-rays obtained on admission did not show any radiographic evidence of osteomyelitis – 12/27/2024; patient wound cultures came back positive for strep MRSA PCR was negative. Patient antibiotic therapy adjusted with initiation of Unasyn. Patient was also seen in consultation by both ID and podiatry notes and recommendations reviewed – 12/28/2024;Patient seen, wound cultures came back positive for Streptococcus agalactiae (sensitivities reviewed). Plan is for patient to be assessed for possible discharge with follow-up with podiatry as outpatient after patient has been seen by ID this morning 2. Chronic congestive heart failure with preserved ejection fraction – Echo on 12/20/2024 demonstrated normal LV size and LVEF of 50%. Patient remains on guideline directed medical therapy 3. Diabetes mellitus type 2 – With complications including chronic diabetic polyneuropathy as well as diabetic foot infection. Held patient oral agent did continue with her long- acting insulin in addition to Accu-Cheks AC and at bedtime with sliding scale coverage 4. Class II obesity with BMI of 38.7 – Complicating care weight loss advised 5. GERD – Patient is on PPI continue 6. Nonischemic cardiomyopathy – Status post AICD placement 7. Hypercalcemia secondary to hyperparathyroidism: Admission calcium 12, rehydrated with repeat calcium levels ordered. Patient is followed by endocrine as outpatient 8. Allergic rhinitis – Patient is on montelukast will continue 9. Hypertension – Blood pressure controlled, home medications continued with dose adjustment as needed 10. Depression with anxiety – Patient is on duloxetine continue 11. Obstructive sleep apnea – Consistent use of PAP therapy encouraged 12. Hypomagnesemia – Corrected for protocol repeat potassium levels ordered 13. DVT prophylaxis – Subcu Lovenox Time spent in the patient's overall evaluation,decision-making process, review of diagnostic data, adjustment of management, discussion with other providers, nursing nursing and ancillary staff involved in patient's care documentation, 38 minutes Charges/Coding Visit Charges Inpatient E&M: 05682 [facility] Hosp L2
--- NOTE | 2024-12-28 07:35 | PCM.PN.SRG ---
Subjective Subjective Ms. Degroot is a 49-year-old diabetic female seen at bedside today for evaluation of cellulitis and full-thickness wound to the left lower extremity and left great toe. Patient was initially seen by Dr. Villeda for initial consultation and he signed out the patient to me as he will not be available throughout the weekend. Overall the patient is doing well on IV antibiotics and getting dressing changes per nursing. Patient was initially admitted from [place] ED on 11/28/2024 for worsening cellulitis to the left lower extremity and full-thickness wound to the left great toe. She has been on antibiotics since admission. Overall the cellulitis improving but still has some redness to the left toe without pain. She admits that her blood sugar was quite elevated upon admission and has been controlled since being in the hospital. She denies trauma. Denies constitutional symptoms. No other pedal complaints at this time. Objective Data Objective Data Vital Signs: Vital Signs Temp Pulse Resp BP Pulse Ox O2 Del Method FiO2 97.7 F L 71 18 111/70 95 Room Air 21 12/28/24 05:47 12/28/24 05:47 12/28/24 05:47 12/28/24 05:47 12/28/24 05:47 12/28/24 05:47 12/27/24 02:30 Oxygen Delivery Method Room Air Weight: 94.6 kg Body Mass Index (BMI) 39.4 Intake & Output: Intake and Output for Last 24 Hours 12/26/24 12/27/24 12/28/24 23:59 23:59 23:59 Intake Total 1895.67 / 1895.67 1040 / 1040 200 / 200 Balance 1895.67 / 1895.67 1040 / 1040 200 / 200 Lab / Micro Data 12/28/24 05:13 12/28/24 05:13 Labs: Laboratory Results - last 24 hr 12/27/24 11:29: POC Glucose 171 H 12/27/24 16:23: POC Glucose 157 H 12/27/24 21:57: POC Glucose 221 H 12/28/24 05:13: WBC 5.2, RBC 4.46, Hgb 12.9, Hct 39.3, MCV 88.1, MCH 28.9, MCHC 32.8, RDW Std Deviation 40.0, RDW Coeff of Zeny 12.4, Plt Count 218, MPV 10.8, Immature Gran % (Auto) 0.400, Neut % (Auto) 44.1 L, Lymph % (Auto) 42.5 H, [place] % (Auto) 9.7, Eos % (Auto) 2.7, Baso % (Auto) 0.6, Absolute Neuts (auto) 2.3, Absolute Lymphs (auto) 2.19, Nucleated RBC % 0, Sodium 138, Potassium 4.3, Chloride 105, Carbon Dioxide 24.5, Anion Gap 9, BUN 13, Creatinine 0.41 L, Estim Creat Clear Calc 178.13, Est GFR (MDRD) Non-Af 122, BUN/Creatinine Ratio 32.5 H, Glucose 179 H, Calcium 11.8 H Micro: Microbiology 12/25/24 21:52 Tissue Ulcer - Great Toe Gram Stain - Final 12/25/24 21:52 Tissue Ulcer - Great Toe Wound Culture - Preliminary Streptococcus group B 12/26/24 10:55 Wound Drainage - Toe Gram Stain - Final 12/26/24 10:55 Wound Drainage - Toe Wound Culture - Preliminary Beta streptococcus 12/26/24 01:30 Wound - Left Foot Skin and Soft Tissue MRSA/MSSA (PCR - Final Physical Exam Narrative Vascular: DP and PT pulse are palpable to the left lower extremity. CFT is brisk. Evidence of blanchable erythema to the left great toe. Marking on the dorsal and plantar foot from initial erythema has responded. Skin temp great is warm to warm from proximal ankles to distal digits left lower extremity with focal increase appreciated to the left hallux. Neurological: Light touch is intact. Protective station is diminished. Patient does respond to painful stimuli. Dermatological: Blanchable erythema to left hallux without proximal streaking. Evidence of full-thickness wound to the plantar medial aspect of the left hallux measuring 1.2 x 1.5 x 0.3 cm. Wound base is fibrogranular. No malodor is appreciated. Negative probe to bone. Excisional debridement down to including subcutaneous tissue, fascia and muscle with a #15 blade and pickup to the full-thickness wound to the left hallux done without incident. Predebridement measurement was 0.9 x 1.3 x 0.1 cm. Postdebridement measurement is 1.2 x 1.5 x 0.3 cm. Musculoskeletal: Mild pain to palpation to full-thickness wound to the left hallux. No pain with calf pressure. Const oriented x3 and no apparent distress Assessment & Plan Assessment/Plan (1) Cellulitis and abscess of foot: PLAN: Patient was examined and evaluated. All findings were discussed with the patient. All questions were answered to the patient satisfaction. Radiographs (12/15/2024: Nonweightbearing left lower extremity radiographs show concern for soft tissue swelling with no evidence or concern for osteomyelitis at this time. There is no evidence of subcutaneous emphysema, or soft tissue air. After examination the patient that shows evidence of improving proximal streaking to the left lower extremity. There is still evidence of blanchable erythema to the left hallux with stable full-thickness wound down to muscle. Negative probe to bone was appreciated. Bedside debridement was performed today without incident. The full-thickness wound was dressed with Betadine paint, Betadine soaked Adaptic dry sterile dressing and a single layer Moore compression bandage was donned to left lower extremity. Nursing can continue dressing changes daily per orders. Excisional debridement down to including subcutaneous tissue, fascia and muscle with a #15 blade and pickup to the full-thickness wound to the left hallux done without incident. Predebridement measurement was 0.9 x 1.3 x 0.1 cm. Postdebridement measurement is 1.2 x 1.5 x 0.3 cm. I did educate the patient that she does show improvement to the cellulitis to the left lower extremity with still evidence and concern for cellulitis in the left hallux. I educated the patient that based on infectious disease recommendation we will either perform in hospital incision and drainage or plan for outpatient treatment which she is understanding of. Wound cultures: Streptococcus agalactiae WBC: 5.2 Glucose: 164 Medicine: On board, medical management Infectious disease:On board, IV antibiotics Unasyn From a podiatry standpoint the patient is showing great improvement cellulitis left lower extremity. Continue daily dressing changes as ordered. Patient can follow-up in private office with myself or Dr. Villeda for continuity of care and planned surgical intervention if needed. Please reach out to Dr. Rodas with any question or concerns. Thank you for letting me be involved in the patient care. (2) Type 2 diabetes mellitus with hyperglycemia: (3) Non-pressure chronic ulcer of other part of left foot with necrosis of muscle:
[2024-12-28] MEDS: Aspirin E.C. 81 MG Tablet PO (10:21)
[2024-12-28] MEDS: SACUBITRIL/VALSARTAN 24/26 MG TABLET 1 EACH PO (10:22)
[2024-12-28] MEDS: Insulin Glargine-YFGN 100 UNIT/ML Pen 20 UNIT SC (10:22)
[2024-12-28] MEDS: Potassium Chloride Oral Tablet 20 MEQ 40 MEQ PO (10:22)
[2024-12-28] MEDS: buPROPion (XL) 150 MG TABLET.XL PO (10:22)
[2024-12-28] MEDS: IVABRADINE HCL 5 MG TABLET PO (10:22)
[2024-12-28 11:00] VITALS: BP 130/78; PULSE 60; RESP 17; TEMP 36.8; O2SAT 98
--- NOTE | 2024-12-28 13:56 | PCM.PN.ID ---
Physical Exam Narrative Foot improved, less pain, less red, no fever Const alert, oriented x3 and no apparent distress General Appearance: cooperative Resp normal air movement and clear to auscultation bilaterally Cardio regular rate and regular rhythm GI soft to palpation, non-tender and non-distended Skin Skin Narrative: L 1st toe less red ID ID: Route of nutrition/ use of supplements: [] Nutritional Intake: [] IV Site: [] Novak Catheter: [] Assessment & Plan Assessment/Plan (1) Diabetic infection of left foot: PLAN: Podiatry following. MRSA pcr of wound was neg. Wound cx showing strep. Continue unasyn. Ok for home with 1 week po augmentin 875mg bid. Will follow prn
[2024-12-28 14:27] VITALS: BP 112/70; PULSE 70; RESP 17; TEMP 36.6; O2SAT 96
--- NOTE | 2024-12-28 14:29 | DS.PCM_ITS ---
Providers Date of Admission: 12/25/24 Date of Discharge: 12/28/24 Primary Care Physician: Anila Acevedo Petrona, DO Consultations 12/26/24 01:07 Consult: Infectious Disease Routine Consulting Provider: Yvan Barakat Reason for Consult: Diabetic foot infection. 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 Comment: Consult: Podiatry Routine Consulting Provider: Sg Villeda Reason for Consult: L great toe diabetic foot infection EMERGENT Consult: No Notified: Yes Date Notified: 12/26/24 Time Notified: 06:47 Method of Notification: Text Reason For Visit: DIABETIC FOOT INFECTION Diagnosis Discharge Diagnosis (1) Diabetic infection of left foot: Status: Acute Code(s): E11.628 - Type 2 diabetes mellitus with other skin complications; L08.9 - Local infection of the skin and subcutaneous tissue, unspecified Plan Patient is a 49-year-old lady with multiple comorbidities who presented with infected left great toe 1. Diabetic foot infection–infected left great toe – Patient started on broad-spectrum antibiotic therapy with Zosyn and clindamycin (has allergies to vancomycin) consult was placed to podiatry and ID on admission. Plain x-rays obtained on admission did not show any radiographic evidence of osteomyelitis – 12/27/2024; patient wound cultures came back positive for strep MRSA PCR was negative. Patient antibiotic therapy adjusted with initiation of Unasyn. Patient was also seen in consultation by both ID and podiatry notes and recommendations reviewed – 12/28/2024;Patient seen, wound cultures came back positive for Streptococcus agalactiae (sensitivities reviewed). Plan is for patient to be assessed for possible discharge with follow-up with podiatry as outpatient after patient has been seen by ID this morning. Dr. Barakat recommended for patient to be discharged home with 1 week therapy with Augmentin. Patient will follow-up with podiatry as outpatient 2. Chronic congestive heart failure with preserved ejection fraction – Echo on 12/20/2024 demonstrated normal LV size and LVEF of 50%. Patient remains on guideline directed medical therapy 3. Diabetes mellitus type 2 – With complications including chronic diabetic polyneuropathy as well as diabetic foot infection. Held patient oral agent did continue with her long- acting insulin in addition to Accu-Cheks AC and at bedtime with sliding scale coverage 4. Class II obesity with BMI of 38.7 – Complicating care weight loss advised 5. GERD – Patient is on PPI continue 6. Nonischemic cardiomyopathy – Status post AICD placement 7. Hypercalcemia secondary to hyperparathyroidism: Admission calcium 12, rehydrated with repeat calcium levels ordered. Patient is followed by endocrine as outpatient 8. Allergic rhinitis – Patient is on montelukast will continue 9. Hypertension – Blood pressure controlled, home medications continued with dose adjustment as needed 10. Depression with anxiety – Patient is on duloxetine continue 11. Obstructive sleep apnea – Consistent use of PAP therapy encouraged 12. Hypomagnesemia – Corrected for protocol repeat potassium levels ordered 13. DVT prophylaxis – Subcu Lovenox Time spent in the patient's overall evaluation,decision-making process, review of diagnostic data, adjustment of management, discussion with other providers, nursing nursing and ancillary staff involved in patient's care documentation, 38 minutes Medications at Discharge Home Medications blood-glucose meter #1 ea 11/19/20 aspirin 81 mg tablet,delayed release 81 mg PO DAILY@0800 heart health #90 tabs 02/16/22 Handicap Placard #1 ea 04/22/22 melatonin 10 mg tablet 10 mg PO QHS sleep #30 tabs 04/22/22 lancets #100 ea 06/21/22 blood sugar diagnostic (Blood Glucose Test strips) #100 ea 03/09/23 cholecalciferol (vitamin D3) 50 mcg (2,000 unit) capsule 2,000 unit PO DAILY supplement #90 caps 08/10/23 montelukast 10 mg tablet 10 mg PO DAILY #60 TABLETS 08/10/23 pen needle, diabetic 31 gauge x 5/16" (Sure-Fine Pen [place]) #100 ea 08/10/23 duloxetine 60 mg capsule,delayed release See Rx Instructions .Route .COMPLEX depression #60 caps 04/05/24 blood sugar diagnostic (OneTouch Verio test strips) #100 ea 04/26/24 blood-glucose meter (OneTouch Verio Reflect Meter) #1 ea 04/26/24 blood-glucose,recreation therapy director,cont (FreeStyle [place] 3 [place]) #1 ea 04/26/24 ivabradine 5 mg tablet (Corlanor) 5 mg PO BIDWMEAL #180 tabs 05/07/24 sacubitril 24 mg-valsartan 26 mg tablet (Entresto) 1 tab PO BID #60 tabs 05/07/24 duloxetine 60 mg capsule,delayed release (Cymbalta) 60 mg PO BID #180 caps 06/05/24 gabapentin 800 mg tablet 800 mg PO TID #270 tabs 06/05/24 magnesium oxide 250 mg PO DAILY #90 tabs 06/05/24 pen needle, diabetic 32 gauge x 5/32" (BD Ultra-Fine [place] Pen Needle) #100 ea 08/01/24 carvedilol 25 mg tablet 37.5 mg (1.5 x 25 mg) PO BID 90 days #270 tabs 08/21/24 omeprazole 40 mg capsule,delayed release 40 mg PO DAILY GERD #30 caps 11/05/24 blood-glucose sensor (mSpokeStyle [place] 3 Plus Sensor device) #2 ea 11/08/24 metformin 500 mg tablet 1,000 mg (2 x 500 mg) PO BIDWMEAL #360 tabs 11/08/24 diltiazem HCl 240 mg capsule,extended release 24 hr 240 mg PO DAILY Heart #90 caps 12/11/24 furosemide 40 mg tablet 40 mg PO DAILY PRN edema #30 TABLETS 12/11/24 potassium chloride 20 mEq tablet,extended release 40 meq (2 x 20 mEq) PO BID #360 tabs 12/11/24 rosuvastatin 10 mg tablet 10 mg PO DAILY #90 tabs 12/11/24 semaglutide 0.25 mg or 0.5 mg (2 mg/3 mL) subcutaneous pen injector (Ozempic) 0.25 mg (0.368 mL) subcut QWEEK #3 mL 12/13/24 bupropion HCl 150 mg 24 hr tablet, extended release 300 mg PO QAM depression 12/26/24 dicyclomine 20 mg tablet 40 mg PO DAILY IBS 12/26/24 insulin aspart U-100 100 unit/mL (3 mL) subcutaneous pen (Novolog FlexPen U-100 Insulin aspart) 18 unit subcut TID diabetes 12/26/24 insulin glargine 100 unit/mL (3 mL) subcutaneous pen (Lantus Solostar U-100 Insulin) 22 unit subcut .HS diabetes 12/26/24 amoxicillin 875 mg-potassium clavulanate 125 mg tablet 1 tab PO BID #14 tabs 12/28/24 Physical Exam Narrative GENERAL: cooperative HEENT: Atraumatic; normocephalic EYES; Anicteric, Normal Conjunctiva NECK; supple, normal thyroid, RESPIRATORY: Diminished to auscultation CARDIOVASCULAR: Regular S1 S2, GI: soft, normoactive bowel sounds, : No Renal angle tenderness; EXTREMITIES: No edema, no clubbing, left big toe wrapped MUSCULOSKELETAL: no muscle wasting NEURO: Awake; no lateralizing signs. SKIN: No Rash PSYCH; Flat affect Weight / BMI Weight Weight: 94.6 kg Body Mass Index (BMI) 39.4 ABG / Lab / Microbiology Data 12/28/24 05:13 12/28/24 05:13 Laboratory: Laboratory Results - last 24 hr 12/27/24 16:23: POC Glucose 157 H 12/27/24 21:57: POC Glucose 221 H 12/28/24 05:13: WBC 5.2, RBC 4.46, Hgb 12.9, Hct 39.3, MCV 88.1, MCH 28.9, MCHC 32.8, RDW Std Deviation 40.0, RDW Coeff of Zeny 12.4, Plt Count 218, MPV 10.8, Immature Gran % (Auto) 0.400, Neut % (Auto) 44.1 L, Lymph % (Auto) 42.5 H, [place] % (Auto) 9.7, Eos % (Auto) 2.7, Baso % (Auto) 0.6, Absolute Neuts (auto) 2.3, Absolute Lymphs (auto) 2.19, Nucleated RBC % 0, Sodium 138, Potassium 4.3, Chloride 105, Carbon Dioxide 24.5, Anion Gap 9, BUN 13, Creatinine 0.41 L, Estim Creat Clear Calc 178.13, Est GFR (MDRD) Non-Af 122, BUN/Creatinine Ratio 32.5 H, Glucose 179 H, Calcium 11.8 H 12/28/24 07:57: POC Glucose 164 H 12/28/24 12:08: POC Glucose 167 H Microbiology: Microbiology 12/26/24 10:55 Wound Drainage - Toe Gram Stain - Final 12/26/24 10:55 Wound Drainage - Toe Wound Culture - Final Streptococcus agalactiae (B) 12/26/24 10:55 Wound Drainage - Toe Anaerobic Culture - Preliminary Checking for anaerobes, further studies to follow. 09/30/25 21:52 Tissue Ulcer - Great Toe Gram Stain - Final 12/25/24 21:52 Tissue Ulcer - Great Toe Wound Culture - Preliminary Streptococcus agalactiae (B) Gram positive catracho 12/25/24 22:48 Urine, Clean Catch Urine Culture - Final Mixed Gram Pos & Gram Neg Org 12/25/24 22:16 Blood Culture (Wb) - Anticubital Right Blood Culture - Preliminary No growth in 48 hours. 12/25/24 22:02 Blood Culture (Wb) - Anticubital Left Blood Culture - Preliminary No growth in 48 hours. 12/26/24 01:30 Wound - Left Foot Skin and Soft Tissue MRSA/MSSA (PCR - Final D/C Instructions Discharge Activity: Return to Normal Activity Call your doctor if you observe: Fever of 101 or Higher, Shortness of breath, Fainting spells and Chest pain DC O2, CPAP, BIPAP Needs Home O2 Discharge instructions: No Meaningful Use Info Meaningful Use Meaningful Use Diagnoses (Choose all that apply): None applicable Discharge Plan Admission Admit Date/Time: 12/25/24 23:49 Attending Provider: Dickson Scott Primary Care Provider: Anila Acevedo [facility] Consulting Providers: Yvan Barakat; Sg Villeda; Velvet Griggs Discharge Orders/Prescriptions Prescriptions: New amoxicillin-pot clavulanate 875-125 mg tablet 1 tab PO BID Qty: 14 0RF Continued (DME) Handicap Placard See Rx Instructions .Route .MEDSUPPLY Qty: 1 0RF Rx Instructions: As directed, length of time 5 years melatonin 10 mg tablet 10 mg PO QHS Qty: 30 3RF cholecalciferol (vitamin D3) 50 mcg (2,000 unit) capsule 2,000 unit PO DAILY Qty: 90 2RF montelukast 10 mg tablet 10 mg PO DAILY Qty: 60 0RF (DME) pen needle, diabetic [Sure-Fine Pen [place]] 31 gauge x 5/16" needle See Rx Instructions .Route Qty: 100 3RF Rx Instructions: TID ivabradine [Corlanor] 5 mg tablet 5 mg PO BIDWMEAL Qty: 180 3RF Entresto 24-26 mg tablet 1 tab PO BID Qty: 60 11RF duloxetine 60 mg capsule,delayed release(DR/EC) See Rx Instructions .ROUTE .COMPLEX Qty: 60 0RF Dose Instruction: take 1 capsule by mouth twice a day for depression Rx Instructions: take 1 capsule by mouth twice a day for depression (DME) blood-glucose meter [OneTouch Verio Reflect Meter] [facility] [place] See Rx Instructions .Route Qty: 1 0RF Rx Instructions: As directed (DME) OneTouch Verio test strips Strip See Rx Instructions .Route Qty: 100 6RF Rx Instructions: TID (DME) FreeStyle Magnolia [address] [facility] [place] See Rx Instructions .Route Qty: 1 0RF Rx Instructions: As directed duloxetine [Cymbalta] 60 mg capsule,delayed release(DR/EC) 60 mg PO BID Qty: 180 0RF gabapentin 800 mg tablet 800 mg PO TID Qty: 270 0RF magnesium oxide 250 mg magnesium tablet 250 mg PO DAILY Qty: 90 0RF dicyclomine 20 mg tablet 40 mg PO DAILY insulin aspart U-100 [Novolog FlexPen U-100 Insulin] 100 unit/mL (3 mL) insulin pen 18 unit subcut TID bupropion HCl 150 mg tablet extended release 24 hr 300 mg PO QAM insulin glargine [Lantus Solostar U-100 Insulin] 100 unit/mL (3 mL) insulin pen 22 unit subcut .HS (DME) blood-glucose meter [facility] [place] See Rx Instructions .ROUTE .MEDSUPPLY Qty: 1 0RF Rx Instructions: use to check blood glucose TID for type 2 DM aspirin 81 mg tablet,delayed release (DR/EC) 81 mg PO DAILY@0800 Qty: 90 3RF (DME) lancets [facility] [place] See Rx Instructions .ROUTE .MEDSUPPLY Qty: 100 3RF Rx Instructions: use to test blood sugar TID for type 2 DM (DME) Blood Glucose Test Strip See Rx Instructions .ROUTE .MEDSUPPLY Qty: 100 0RF Rx Instructions: use to check blood glucose TID for type 2 DM (DME) pen needle, diabetic [BD Ultra-Fine Blaire Pen Needle] 32 gauge x 5/32" needle See Rx Instructions .Route Qty: 100 3RF Rx Instructions: daily carvedilol 25 mg tablet 37.5 mg PO BID 90 Days Qty: 270 3RF omeprazole 40 mg capsule,delayed release(DR/EC) 40 mg PO DAILY Qty: 30 0RF metformin 500 mg tablet 1,000 mg PO BIDWMEAL Qty: 360 1RF (DME) FreeStyle Magnolia 3 Plus Sensor Device See Rx Instructions .Route Qty: 2 6RF Rx Instructions: As directed diltiazem HCl 240 mg capsule,extended release 24hr 240 mg PO DAILY Qty: 90 3RF furosemide 40 mg tablet 40 mg PO DAILY PRN (Reason: edema) Qty: 30 11RF rosuvastatin 10 mg tablet 10 mg PO DAILY Qty: 90 3RF potassium chloride 20 mEq tablet extended release 40 meq PO BID Qty: 360 11RF Ozempic 0.25 mg or 0.5 mg (2 mg/3 mL) pen injector 0.25 mg subcut QWEEK Qty: 3 3RF Referrals / Follow Up: Sg Villeda MD [Med Staff - Active Staff, Podiatry] - Within 1 Week Anila Acevedo DO [Primary Care Provider, Family Practice] - Within 2 Weeks Disposition Disposition (needs filled in before D/C Order can be placed): Home, Self Care Charges/Coding Visit Charges Inpatient E&M: 59314 Disch Hosp >30min
--- NOTE | 2024-12-28 15:29 | CASEMGMT ---
TASNEEM DUARTE note: Discharge order is in. RN CM to room. Pt sitting up in chair. Pt made aware discharge order is in. She states Dr Rodas told her this morning that she would be staying until tomorrow and that he would be in tomorrow again to re-assess her wound. Message sent to Dr Rodas re: same. He states pt can discharge from his standpoint and he will see her 1st thing in the clinic next week. He asks for pt to call the office and to tell the front loader residential driver to double book her. This was added in pt's discharge plan. Pt states has been doing wound care/dressing changes @ home @ will continue to do this. Noted no orders on discharge instructions for wound care. BOBY Fishman, states Dr Rodas stated wound care is to be the same @ home as is being done here. She states she will print off the instructions and provide to pt. Pt states she has been using the surgical shoe when up & feels she has been doing well w/maintaining PWB status. She declines need for HHC or OP therapy. Sonu SHAIKH RN CM
--- NOTE | 2024-12-28 16:32 | PHA.DC.MC.R ---
Pharmacy [facility] Counseling Pharmacy Service has performed discharge medication reconciliation and counseling for this patient. 1. AUGMENTIN 875/125MG PO BID X 7 DAYS The patient's discharge medication list was reviewed for discrepancies and discrepancies were resolved. The patient was counseled on the following discharge medications and changes in medications for homegoing were reviewed. The Reason for Use, instructions for use, and potential side effects were reviewed for all new medications. The patient's questions regarding all of their medications were answered. The patient was able to verbally demonstrate an understanding of their discharge medications. Medications at Discharge Home Medications blood-glucose meter #1 ea 11/19/20 aspirin 81 mg tablet,delayed release 81 mg PO DAILY@0800 heart health #90 tabs 02/16/22 Handicap Placard #1 ea 04/22/22 melatonin 10 mg tablet 10 mg PO QHS sleep #30 tabs 04/22/22 lancets #100 ea 06/21/22 blood sugar diagnostic (Blood Glucose Test strips) #100 ea 03/09/23 cholecalciferol (vitamin D3) 50 mcg (2,000 unit) capsule 2,000 unit PO DAILY supplement #90 caps 08/10/23 montelukast 10 mg tablet 10 mg PO DAILY #60 TABLETS 08/10/23 pen needle, diabetic 31 gauge x 5/16" (Sure-Fine Pen [place]) #100 ea 08/10/23 duloxetine 60 mg capsule,delayed release See Rx Instructions .Route .COMPLEX depression #60 caps 04/05/24 blood sugar diagnostic (OneTouch Verio test strips) #100 ea 04/26/24 blood-glucose meter (OneTouch Verio Reflect Meter) #1 ea 04/26/24 blood-glucose,tube room supervisor,cont (FreeStyle Magnolia 3 [place]) #1 ea 04/26/24 ivabradine 5 mg tablet (Corlanor) 5 mg PO BIDWMEAL #180 tabs 05/07/24 sacubitril 24 mg-valsartan 26 mg tablet (Entresto) 1 tab PO BID #60 tabs 05/07/24 duloxetine 60 mg capsule,delayed release (Cymbalta) 60 mg PO BID #180 caps 06/05/24 gabapentin 800 mg tablet 800 mg PO TID #270 tabs 06/05/24 magnesium oxide 250 mg PO DAILY #90 tabs 06/05/24 pen needle, diabetic 32 gauge x 5/32" (BD Ultra-Fine Blaire Pen Needle) #100 ea 08/01/24 carvedilol 25 mg tablet 37.5 mg (1.5 x 25 mg) PO BID 90 days #270 tabs 08/21/24 omeprazole 40 mg capsule,delayed release 40 mg PO DAILY GERD #30 caps 11/05/24 blood-glucose sensor (FreeStyle Magnolia 3 Plus Sensor device) #2 ea 11/08/24 metformin 500 mg tablet 1,000 mg (2 x 500 mg) PO BIDWMEAL #360 tabs 11/08/24 diltiazem HCl 240 mg capsule,extended release 24 hr 240 mg PO DAILY Heart #90 caps 12/11/24 furosemide 40 mg tablet 40 mg PO DAILY PRN edema #30 TABLETS 12/11/24 potassium chloride 20 mEq tablet,extended release 40 meq (2 x 20 mEq) PO BID #360 tabs 12/11/24 rosuvastatin 10 mg tablet 10 mg PO DAILY #90 tabs 12/11/24 semaglutide 0.25 mg or 0.5 mg (2 mg/3 mL) subcutaneous pen injector (Ozempic) 0.25 mg (0.368 mL) subcut QWEEK #3 mL 12/13/24 bupropion HCl 150 mg 24 hr tablet, extended release 300 mg PO QAM depression 12/26/24 dicyclomine 20 mg tablet 40 mg PO DAILY IBS 12/26/24 insulin aspart U-100 100 unit/mL (3 mL) subcutaneous pen (Novolog FlexPen U-100 Insulin aspart) 18 unit subcut TID diabetes 12/26/24 insulin glargine 100 unit/mL (3 mL) subcutaneous pen (Lantus Solostar U-100 Insulin) 22 unit subcut .HS diabetes 12/26/24 amoxicillin 875 mg-potassium clavulanate 125 mg tablet 1 tab PO BID #14 tabs 12/28/24
--- NOTE | 2024-12-28 17:06 | NURSING ---
Per podiatry ok to d/c patient per hospitalist- printed order for dressing change and also informed patient to schedule with ruiz tuesday am and inform the board of education secretary that they are to double book ruiz if need be.,
== END 2024-12-28 17:09 | disposition home or self-care (01) | DRG 623 ==
LOC: ED 23:35 → PCU 23:58
PROVIDERS: Admitting Provider Family Medicine; Emergency Provider Emergency Medicine; PCP Family Medicine; Visit Provider Internal Medicine
DX: E11.621 Type 2 diabetes mellitus with foot ulcer (principal); I42.0 Dilated cardiomyopathy; L03.116 Cellulitis of left lower limb; I50.32 Chronic diastolic (congestive) heart failure; L02.612 Cutaneous abscess of left foot; E11.42 Type 2 diabetes mellitus with diabetic polyneuropathy; B95.1 Streptococcus, group B, as the cause of diseases classified elsewhere; I11.0 Hypertensive heart disease with heart failure; F32.A Depression, unspecified; E66.812 Obesity, class 2; L97.523 Non-pressure chronic ulcer of other part of left foot with necrosis of muscle; E11.65 Type 2 diabetes mellitus with hyperglycemia; E21.3 Hyperparathyroidism, unspecified; E78.5 Hyperlipidemia, unspecified; G47.33 Obstructive sleep apnea (adult) (pediatric); K21.9 Gastro-esophageal reflux disease without esophagitis; Z79.4 Long term (current) use of insulin; J30.9 Allergic rhinitis, unspecified; F41.9 Anxiety disorder, unspecified; L03.032 Cellulitis of left toe; Z79.2 Long term (current) use of antibiotics; Z95.810 Presence of automatic (implantable) cardiac defibrillator; Z68.38 Body mass index [BMI] 38.0-38.9, adult; Z79.82 Long term (current) use of aspirin; Z79.84 Long term (current) use of oral hypoglycemic drugs; Z79.85 Long-term (current) use of injectable non-insulin antidiabetic drugs; Z79.891 Long term (current) use of opiate analgesic; Z79.899 Other long term (current) drug therapy; Z86.16 Personal history of COVID-19; Z23 Encounter for immunization
CPT/HCPCS: 36415; 73630; 80048; 80053; 81001; 82962; 83036; 83605; 83735; 84100; 85025; 85610; 85652; 85730; 86140; 87040; 87070; 87075; 87077; 87086; 87088; 87186; 87205; 87640; 93005; 94660; 94668; 97162; 97166; 97530; 97802; 99285; A4216; J0295; J2405

== ENCOUNTER → 2025-02-27 | Outpatient (CLI) | payer MEDICAID, SELFPAY ==
--- NOTE | 2025-02-27 12:31 | MRI_ITS ---
PROCEDURE: LOWER EXT NO JOINT W/WO CONT 02/27/2025 REASON FOR EXAM: CHRONIC ULCER TO LEFT FOOT TECHNIQUE: Procedure Code: [id number] Modality: MR Procedure: LOWER EXT NO JOINT W/WO CONT CONTRAST: Clariscan VOLUME: 20 mL FINDINGS: Mild enhancement of the soft tissues plantar to the interphalangeal joint of the great toe. No soft tissue defect to suggest an ulcer. No focal fluid collection such as an abscess. The bone marrow signal is unremarkable, without marrow edema nor enhancement. The remainder of the soft tissues of the forefoot appear unremarkable. MRI/Lower Ext No Joint W/WO Cont IMPRESSION: Mild enhancement of the soft tissues plantar to the interphalangeal joint of th e great toe, which may represent inflammation, possibly mild cellulitis. No MR evidence of ulceration, abscess, or osteomyeli tis. Reading Location: [id number]
[2025-02-27 13:06] VITALS: BP 158/95; PULSE 107; RESP 18; O2SAT 91
[2025-02-27 13:17] VITALS: BP 178/138; PULSE 104; RESP 18; O2SAT 99
== END | disposition home or self-care (01) ==
PROVIDERS: PCP Family Medicine; Referring Provider Podiatrist Foot & Ankle Surgery; Visit Provider Podiatrist Foot & Ankle Surgery
DX: L03.116 Cellulitis of left lower limb (principal); E11.621 Type 2 diabetes mellitus with foot ulcer; L97.522 Non-pressure chronic ulcer of other part of left foot with fat layer exposed; E11.42 Type 2 diabetes mellitus with diabetic polyneuropathy
CPT/HCPCS: 73720; A9575